=== PATIENT | male | born 1955 | race Caucasian/White ===

== ENCOUNTER 2022-02-05 09:40 | Outpatient (CLI) | payer MEDICARE, OTHER, SELFPAY ==
--- OUTSIDE RECORDS SUMMARY | 2022-02-05 08:58 | XMS_ITS | Clinical Summary ---
:1955 Author Organization [employer] [facility] [place] [address] Care Team Providers Name Role Phone Dedra Brennan MD Primary Care Provider [phone] Allergies No known active allergies Medications No known medications Active Problems No known active problems Social History Tobacco Use Types Packs/Day Years Used Date Never Assessed Sex Assigned at Date Recorded Not on file Obstetrics History Plan of Treatment Health Maintenance Due Date Last Done Comments COVID-19 vaccine series (#1) 1955 Tdap 02/17/1968 Depression screening for age 12+ 1969 BMI (ht and wt on same day) for age 18+ 1975 Hepatitis C screening for age 18-79 1975 Tetanus booster 1977 Colonoscopy through age 75 2002 Lipids for age 45-75 2002 Zoster (shingles) series for age 50+ (1 of 2) 2007 Influenza for age 50-64 12/26/2021 Results Not on filefrom Last 3 Months Insurance Payer Benefit Plan / Subscriber ID Effective Dates Phone Addre ss Type Group WEST [id number] 2006-Present [employer]/ [address] [place] [id number] Care Teams [employer] Relationship Specialty Start Date End Date Dedra Brennan MD PCP - General 10/26/07
== END 2022-02-05 09:41 | disposition home or self-care (01) ==
PROVIDERS: PCP Family Medicine; Visit Provider Family Medicine
DX: E03.9 Hypothyroidism, unspecified (principal)
CPT/HCPCS: 84443

== ENCOUNTER 2022-07-10 07:47 | Outpatient (CLI) | payer MEDICARE, OTHER, SELFPAY | END 2022-07-10 07:48 | disposition home or self-care (01) | LOC: OP CLINIC 07:48 | PROVIDERS: PCP Family Medicine; Visit Provider Surgery | DX: Z12.11 Encounter for screening for malignant neoplasm of colon (principal); K63.5 Polyp of colon; K62.1 Rectal polyp; K64.8 Other hemorrhoids; K57.30 Diverticulosis of large intestine without perforation or abscess without bleeding; Z80.0 Family history of malignant neoplasm of digestive organs; Z86.010 Personal history of colon polyps | CPT/HCPCS: 45385; 88305; 99153; J1200; J2250; J3010 ==

== ENCOUNTER 2022-11-19 09:10 | Outpatient (CLI) | payer MEDICARE, OTHER, SELFPAY | END 2022-11-19 09:11 | disposition home or self-care (01) | LOC: NFLDREF 11-20 10:34 | PROVIDERS: PCP Family Medicine; Referring Provider Family Medicine; Visit Provider Family Medicine | DX: E03.9 Hypothyroidism, unspecified (principal) | CPT/HCPCS: 84443 ==

== ENCOUNTER 2023-02-02 15:38 | Outpatient (CLI) | payer MEDICARE, OTHER, SELFPAY ==
--- NOTE | 2023-02-02 16:00 | CRLHL7_ITS ---
For Patients: As a result of the Century Cures Act, medical imaging exams and procedure reports are released immediately into your electronic medical record. You may view this report before your referring provider. If you have questions, please contact your health care provider. Indication: LEFT NECK PALPABLE AREA Technique: Grayscale and color Doppler ultrasound of the left side of the neck performed. Comparison: None Findings: There is an enlarged lymph node within the left side of the neck measuring 3.0 x 1.5 x 1.7 cm. The echotexture is primarily hypoechoic. No abnormal vascularity. Impression: Enlarged left cervical lymph node measuring 3.[address] soft tissue neck and ENT referral recommended. Dictated by Bradley Fatima MD @ 02/04/2023 6:57:31 AM (Electronically Signed)
== END 2023-02-02 15:39 | disposition home or self-care (01) ==
LOC: US 15:39
PROVIDERS: PCP Family Medicine; Visit Provider Nurse Practitioner Family
DX: R59.0 Localized enlarged lymph nodes (principal)
CPT/HCPCS: 76536

== ENCOUNTER 2023-02-12 07:37 | Outpatient (CLI) | payer MEDICARE, OTHER, SELFPAY ==
--- NOTE | 2023-02-12 08:00 | CRLHL7_ITS ---
For Patients: As a result of the Century Cures Act, medical imaging exams and procedure reports are released immediately into your electronic medical record. You may view this report before your referring provider. If you have questions, please contact your health care provider. INDICATION: Localized enlarged to lymph nodes. TECHNIQUE: CT of the neck from the skull base to the thoracic inlet following administration of 132 cc iodinated intravenous contrast. COMPARISON: Correlated with ultrasound dated 02/02/2023. FINDINGS: An enhancing soft tissue mass involving the left palatine tonsil and glossal tonsillar sulcus measures up to 2.9 cm in greatest dimension and abuts the left hyoglossus. No evidence of pterygoid musculature, skullbase, or laryngeal involvement. Multiple prominent left cervical lymph nodes with foci of internal hypoattenuation suggestive of necrosis as follows: -left level IIa nodes measuring 1.2 cm (series 3, image 43), 1.8 cm (series 3 image 41), and 1.9 cm (series 3, image 53) -left level IIb nodes measuring 1.3 cm (series 3, image 41), 1.6 cm (series 3, image 45), and 1.4 cm (series 3, image 50). Mildly prominent left anterior parotid lymph node with normal central fatty hilum. Unremarkable submandibular and thyroid glands. The lung apices are clear. The major vascular structures are normal in appearance. No suspicious osseous lesion is identified. IMPRESSION: 1. 2.9 cm enhancing mass at the left glossal tonsillar sulcus abutting and questionably involving the left hyoglossus musculature. 2. Multiple prominent and necrotic left upper cervical lymph nodes as detailed above highly suspicious for [place] metastases. Please note that all CT scans at this facility use dose modulation, iterative reconstruction, and/or weight-based dosing when appropriate to reduce radiation dose to as low as reasonably achievable. Dictated by Gabe Vivas MD @ 02/13/2023 2:49:25 PM (Electronically Signed)
[2023-02-12 08:24] LABS: Creatinine* 1.3 mg/dL (0.5-1.5); Estimated Glomerular Filt Rate 61 ml/min
== END 2023-02-12 07:38 | disposition home or self-care (01) ==
LOC: CT 07:38
PROVIDERS: PCP Family Medicine; Visit Provider Nurse Practitioner Family
DX: R59.0 Localized enlarged lymph nodes (principal); R22.1 Localized swelling, mass and lump, neck
CPT/HCPCS: 36415; 70491; 82565; Q9967

== ENCOUNTER 2023-03-31 10:04 | Emergency (ER) | payer MEDICARE, OTHER, SELFPAY ==
[2023-03-31 10:16] VITALS: BP 129/91; PULSE 61; RESP 18; TEMP 36.3; O2SAT 94; BMI 41.7
--- NOTE | 2023-03-31 10:32 | CRLHL7_ITS ---
For Patients: As a result of the Century Cures Act, medical imaging exams and procedure reports are released immediately into your electronic medical record. You may view this report before your referring provider. If you have questions, please contact your health care provider. INDICATION: Chest pressure and shortness of breath, recent diagnosis with throat cancer. TECHNIQUE: CT chest PE was acquired with 131 cc Isovue 370 IV contrast. COMPARISON: None. FINDINGS: Heart and vasculature: Contrast opacification of the pulmonary arterial tree is adequate. No sign of pulmonary embolism. Heart size is normal. Thoracic aorta and pulmonary artery are normal in caliber. Lungs and pleura: Scattered peribronchial thickening and mosaic attenuation. No suspicious nodules or infiltrates. No pleural effusions, pleural thickening, or pneumothorax. Lymph nodes/mediastinum: No mediastinal, hilar, or axillary adenopathy. Chest wall: No masses. Upper abdomen: No acute or significant findings. Bones: Unremarkable for age. IMPRESSION: No pulmonary embolism. Scattered peribronchial thickening and mosaic attenuation throughout the lungs, possibly related to small vessel/airway disease, including bronchitis. No focal consolidations. Please note that all CT scans at this facility use dose modulation, iterative reconstruction, and/or weight-based dosing when appropriate to reduce radiation dose to as low as reasonably achievable. Dictated by Varun Hernadez MD @ 03/31/2023 1:27:21 PM (Electronically Signed)
--- NOTE | 2023-03-31 10:34 | ED.CHESTPAIN ---
HPI - Chest Pain General Chief Complaint: Chest Pain Stated Complaint: chest pain,shortness of breath Time Seen by Provider: 03/31/23 10:24 History of Present Illness HPI narrative: This 68-year-old male is sent here from the infusion clinic because of report of some chest pain recently. 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 He came into infusion center today to get routine IV fluids. He is reporting an episode of chest pain radiating up into his jaw that occurred when he was walking. He rested and the symptoms went away. This occurred a couple days ago. Then he had some chest discomfort when laying flat on his back and this was relieved with staying in a is sitting position. Currently he does not have any chest pain. He does not report any nausea, vomiting, lightheaded, shortness of breath, or diaphoresis. He does have a history of DVT x2 and he is currently on Xarelto. He comes here to check his heart and to rule out a pulmonary embolism. Related Data Home Medications Medication Instructions Recorded Confirmed cetirizine 10 mg tablet (Zyrtec) 10 mg PO QDAY 02/02/23 03/24/23 vhcmxdm-[id number]-ouopjtpc 250 2 tab PO Q6H PRN 03/17/23 03/24/23 mg-250 mg-65 mg tablet (Excedrin Extra Strength) glucosamine 750 st-uftjuzcszwh-bag 2 tab PO QDAY 03/17/23 03/24/23 no1 644 mg-C 30 mg-ruth 1 mg tablet (Osteo Bi-Flex Triple Strength) ibuprofen 400 mg tablet 400 mg PO Q8H 03/17/23 03/24/23 Previous Rx's Medication Instructions Recorded azelaic acid 15 % topical gel 1 applic topical BID #50 grams 04/15/22 (Finacea) atorvastatin 10 mg tablet 10 mg PO QPM #90 tabs 09/12/22 rivaroxaban 20 mg tablet (Xarelto) 20 mg PO QDAY #90 tabs 09/12/22 levothyroxine 125 mcg tablet 125 mcg PO QDAY #90 tabs 11/27/22 (Synthroid) ondansetron HCl 4 mg tablet 4 mg PO Q8H PRN nausea and 03/17/23 vomiting #60 tabs prochlorperazine maleate 5 mg 5 mg PO TID PRN nausea and 03/17/23 tablet (Compazine) vomiting #60 tabs Allergies Allergy/AdvReac Type Severity Reaction Status Date / Time No Known Allergies Allergy Verified 03/31/23 09:09 Review of Systems Status of ROS Reports: 10 or more systems reviewed and unremarkable except as noted in History and below Narrative Constitutional: No fevers, no weight gain or loss. Eyes: No discharge. No vision changes. HENT: No congestion, no sore throat, no ear pain. Cardiovascular: No palpitations. Chest discomfort as described above. Respiratory: No shortness of breath, no wheezes, no cough. Gastrointestinal: No abdominal pain, no vomiting, no diarrhea. Genitourinary: No dysuria, no hematuria. Musculoskeletal: Normal range of motion. Skin: No rashes, no pruritis. Neurological: No dizziness, weakness, sensory change, speech change. Endo/Heme/Allergies: No bruising or bleeding. No polydipsia. Pysch: no suicidality, no anxiety, no insomnia. All other systems reviewed and are negative. 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 - Other diseases of pharynx (ICD-10) Enlarged lymph node in neck ?R59.0 - Localized enlarged lymph nodes (ICD-10) Insomnia ?G47.00 - Insomnia, unspecified (ICD-10) Rosacea ?L71.9 - Rosacea, unspecified (ICD-10) Tobacco use (03/25/10) ?Z72.0 - Tobacco use (ICD-10) Strain of lumbar paraspinous muscle ?S39.012A - Strain of muscle, fascia and tendon of lower back, initial encounter (ICD-10) Surgical History (Updated 11/06/21 @ 15:12 by Pillo Turner) History of hemorrhoidectomy (03/25/10) ?Z98.890 - Other specified postprocedural states (ICD-10) History of colonoscopy ?Z98.890 - Other specified postprocedural states (ICD-10) History of cholecystectomy (03/25/10) ?Z90.49 - Acquired absence of other specified parts of digestive tract (ICD-10) History of appendectomy (03/25/10) ?Z90.49 - Acquired absence of other specified parts of digestive tract (ICD-10) Family History (Updated 11/06/21 @ 15:14 by Pillo Turner) Mother Breast cancer Diabetes Family/Other Diabetes Father Prostate cancer Other Colonic polyp Social History (Updated 11/06/21 @ 15:14 by Pillo Turner) Narrative: Former smoker Smoking Status: Former smoker Do you use any of these nicotine containing products: None Second hand tobacco smoke exposure: No How often do you have a drink containing alcohol: never AUDIT-C Alcohol total score: 0 Non-prescribed substance use: denies use Little interest or pleasure in doing things: several days Feeling down, depressed, or hopeless: several days Exam Narrative Exam Narrative: Constitutional: Well-developed, well-nourished, no acute distress. HEENT: Normocephalic, atraumatic. Neck: Normal range of motion. Nontender. Supple. Heart: Regular. No murmurs. Normal rate. Intact distal pulses. Lungs: Clear to auscultation. No chest discomfort. No wheezes, rhonchi, or rales. Abdomen: Normal bowel sounds. Nontender. No rebound tenderness. Genitalia: Deferred. Back: No midline tenderness. Normal range of motion. Extremities: Normal range of motion. No injury. Skin: Intact. No rash. Warm. No erythema or pallor. Neurologic: No altered sensation. No weakness. Alert and oriented. Psychiatric: No suicidality. No anxiety or depression. No insomnia. Nursing notes and vitals signs are reviewed. Const Vital Signs, click to edit/add: Vital Signs - 24 hr 03/31/23 10:16 03/31/23 13:00 03/31/23 13:01 Temperature 97.3 F L Pulse Rate 64 65 Pulse Rate [Pulse Oximeter] 61 Respiratory Rate 18 Blood Pressure 129/86 Blood Pressure [Right Upper Arm] 129/91 H Pulse Oximetry 94 93 93 Oxygen Delivery Method Room Air Course Vital Signs Vital signs: Initial Vital Signs Temperature 97.3 F L 03/31/23 10:16 Temperature Source Temporal Artery Scan 03/31/23 10:16 Pulse Rate 61 03/31/23 10:16 Respiratory Rate 18 03/31/23 10:16 Blood Pressure 129/91 H 03/31/23 10:16 Blood Pressure Mean 103 03/31/23 10:16 Blood Pressure Position Supine 03/31/23 10:16 Pulse Oximetry 94 03/31/23 10:16 Oxygen Delivery Method Room Air 03/31/23 10:16 Vital Signs Temperature 97.3 F L 03/31/23 10:16 Pulse Rate 61 03/31/23 10:16 Respiratory Rate 18 03/31/23 10:16 Blood Pressure 129/91 H 03/31/23 10:16 Pulse Oximetry 94 03/31/23 10:16 Oxygen Delivery Method Room Air 03/31/23 10:16 Temperature 97.3 F L 03/31/23 10:16 Pulse Rate 65 03/31/23 13:01 Respiratory Rate 18 03/31/23 10:16 Blood Pressure 129/86 03/31/23 13:01 Pulse Oximetry 93 03/31/23 13:01 Oxygen Delivery Method Room Air 03/31/23 10:16 Medications Administered Medications: Discontinued Medications Generic Name Dose Route Start Last Admin Trade Name Freq PRN Reason Stop Dose Admin Sodium Chloride 1,000 mls @ 1,000 mls/hr 03/31/23 10:45 03/31/23 12:55 0.9 % Sodium Chloride 1000 Ml IV 03/31/23 11:44 Infused .Q1H SHEIL[facility] Infusion MDM - Chest Pain MDM Narrative Medical decision making narrative: This patient was sent here from a visit to the infusion clinic because he reported chest pain as described above. He does have a history of deep venous thrombosis. Today an IV was established where he did received 2 L of normal saline. Chest CT with contrast shows no evidence of pulmonary embolism. Additionally his EKG and troponin returned with normal results. Patient states that he was out shoveling this morning and did not have any symptoms. This strenuous activity was well tolerated which is some further reassurance by way of his report of symptoms. He is okay to be discharged home and will resume current plans for treating his palatine tonsil cancer. Lab Data Labs: Lab Results 03/31/23 03/31/23 Range/Units 10:32 11:06 WBC 6.33 (4.50-11.00) K/uL RBC 4.61 (4.30-5.90) m/uL Hgb 14.2 (13.5-17.5) gm/dL Hct 42.7 (37.0-53.0) % MCV 93 (80-100) fL MCH 31 (26-34) pg MCHC 33 (32-36) gm/dL RDW Coeff of Jatin 12.6 (11.5-15.5) % Plt Count 176 (140-440) K/uL Neut % (Auto) 63.6 (42.0-72.0) % Lymph % (Auto) 24.0 (20-44) % [place] % (Auto) 10.6 (0.0-11.0) % Eos % (Auto) 1.3 (0.0-7.0) % Baso % (Auto) 0.2 (0.0-3.0) % Neut # (Auto) 4.03 (1.7-7.0) K/uL Lymph # (Auto) 1.52 (0.90-2.90) K/uL [place] # (Auto) 0.70 (0.00-0.90) K/UL Eos # (Auto) 0.08 (0.00-0.50) K/uL Baso # (Auto) 0.01 (0.00-0.30) K/uL Abs Immat Gran (auto) 0.02 (0.00-0.30) K/uL Imm/Tot Granulo (auto) 0.3 % Sodium 138 (135-149) mmol/L Potassium 4.3 (3.6-5.1) mmol/L Chloride 106 (96-114) mmol/L Carbon Dioxide 25 (20-32) mmol/L Anion Gap 7 (7-15) mEq/L BUN 19 (7-30) mg/dL Creatinine 1.1 (0.5-1.5) mg/dL Estimated Creat Clear 61.76 Estimated GFR 74 ml/min Glucose 129 H (60-115) mg/dL Calcium 9.3 (8.4-10.6) mg/dL POC Troponin I 0.00 L (0.01-0.04) ng/ml Imaging Data CT scan - chest: Radiologist's impression: No pulmonary embolism. ECG Data Attestation: I personally reviewed and interpreted this ECG as follows: Interpretation: Normal sinus rhythm. Rate is 63 beats per minute. There are no ST or T-wave abnormalities. Discharge Plan Discharge Clinical Impression: Atypical chest pain Patient Disposition: Home, Self-Care Additional Instructions: Continue current plans. Follow up with MD and infusion clinic as scheduled. Return if worsening. Prescriptions: No Action azelaic acid [Finacea] 15 % gel 1 applic topical BID Qty: 50 1RF cetirizine [Zyrtec] 10 mg tablet 10 mg PO QDAY Osteo Bi-Flex Triple Strength 750 mg-644 mg- 30 mg-1 mg tablet 2 tab PO QDAY ibuprofen 400 mg tablet 400 mg PO Q8H Excedrin Extra Strength 250-250-65 mg tablet 2 tab PO Q6H PRN prochlorperazine maleate [Compazine] 5 mg tablet 5 mg PO TID PRN (Reason: nausea and vomiting) Qty: 60 0RF ondansetron HCl 4 mg tablet 4 mg PO Q8H PRN (Reason: nausea and vomiting) Qty: 60 0RF atorvastatin 10 mg tablet 10 mg PO QPM Qty: 90 3RF Xarelto 20 mg tablet 20 mg PO QDAY Qty: 90 3RF Rx Instructions: must administer with evening meal levothyroxine [Synthroid] 125 mcg tablet 125 mcg PO QDAY Qty: 90 3RF Follow Up/Referrals: Toi Yap MD [Primary Care Provider] - Stand Alone Forms: [facility] Info Instructions
[2023-03-31] MEDS: 0.9 % SODIUM CHLORIDE 1000 ml 1,000 ML IV (11:06)
[2023-03-31 11:20] LABS: Basophils Absolute Auto 0.01 K/uL (0.00-0.30); Basophils Percent Auto 0.2 % (0.0-3.0); Eosinophils Absolute Auto 0.08 K/uL (0.00-0.50); Eosinophils Percent Auto 1.3 % (0.0-7.0); Hematocrit 42.7 % (37.0-53.0); Hemoglobin* 14.2 gm/dL (13.5-17.5); Immature Granulocytes Abs Auto 0.02 K/uL (0.00-0.30); Immature Granulocytes Pct Auto 0.3 %; Lymphocytes Absolute Auto 1.52 K/uL (0.90-2.90); Mean Corpuscular HGB Conc 33 gm/dL (32-36); Mean Corpuscular Hemoglobin 31 pg (26-34); Mean Corpuscular Volume 93 fL (80-100); Monocytes Percent Auto 10.6 % (0.0-11.0); Neutrophils Absolute Auto 4.03 K/uL (1.7-7.0); Neutrophils Percent Auto 63.6 % (42.0-72.0); Platelet Count* 176 K/uL (140-440); RDW Coefficient of Variation % 12.6 % (11.5-15.5); Red Blood Count 4.61 m/uL (4.30-5.90); White Blood Count* 6.33 K/uL (4.50-11.00)
[2023-03-31 11:27] LABS: Slide Review Reflex No
[2023-03-31 11:57] LABS: Anion Gap 7 mEq/L (7-15); Carbon Dioxide* 25 mmol/L (20-32); Chloride* 106 mmol/L (96-114); Potassium* 4.3 mmol/L (3.6-5.1); Sodium* 138 mmol/L (135-149)
[2023-03-31 11:58] LABS: Blood Urea Nitrogen* 19 mg/dL (7-30); Calcium* 9.3 mg/dL (8.4-10.6); Creatinine* 1.1 mg/dL (0.5-1.5); Est. Creatinine Clearance* 61.76; Estimated Glomerular Filt Rate 74 ml/min; Glucose* 129 mg/dL (60-115)
[2023-03-31 13:00] VITALS: PULSE 64; O2SAT 93
[2023-03-31 13:01] VITALS: BP 129/86; PULSE 65; O2SAT 93
== END 2023-03-31 13:49 | disposition home or self-care (01) ==
PROVIDERS: Emergency Provider Emergency Medicine Emergency Medical Services; PCP Family Medicine
DX: R07.9 Chest pain, unspecified (principal)
CPT/HCPCS: 36415; 71275; 80048; 84484; 85025; 93005; 99284; J7030; Q9967

== ENCOUNTER 2023-05-06 10:39 | Outpatient (CLI) | payer BC, OTHER, SELFPAY ==
--- OUTSIDE RECORDS SUMMARY | 2023-05-06 10:42 | XMS_ITS | Clinical Summary ---
Author Name Unknown Organization [facility] Address [address] [place] [address] Care Team Providers Care Base Draw Operator Name Role Phone Unavailable Primary Care Provider Unavailabl e Source Comments Patient records contain information from all sites at [facility]. For routine questions regarding patient records, call [phone] during business hours, M-F 8:00 AM - 5:00 PM Central Time. Record requests for emergency care only can be directed to [phone] at any time.[facility] Allergies No known active allergies Medications Medication Sig Dispensed Refills Start Date End Date Status glucosamine sulfate (GLUCOSAMINE ORAL) Take 2 capsules by mouth daily. 0 1 Active ibuprofen (ADVIL,MOTRIN) 200 mg tablet Take 3-4 tablets by mouth daily as needed. unknown 0 9 Active rivaroxaban (XARELTO) 20 mg tablet rivaroxaban 20 mg oral tablet Start Date: 02/14/21 Status: Ordered 0 7 Active levothyroxine (SYNTHROID, LEVOTHROID) 125 mcg tablet 0 3 Active glucosamine portillo 2KCl-chondroit (Glucosamine-Ch ondroitin 3X Str) 750-600 mg tablet 0 3 Active finasteride (PROSCAR) 5 mg tablet finasteride 5 mg oral tablet Start Date: 09/28/20 Status: Ordered 0 1 Active azelaic acid (FINACEA) 15 % gel 0 1 Active atorvastatin (LIPITOR) 10 mg tablet atorvastatin 10 mg oral tablet Start Date: 08/23/20 Status: Ordered 0 1 Active fluoride, sodium, (PREVIDENT) 1.1 % gel dental gel Apply 1 Application to the mouth or throat daily. Floss, brush, baking soda rinse. Apply thin gel ribbon to trays wear 5 minutes. Remove trays expectorate excess gel. No eating drinking or rinsing for 30 min. 100 mL 12 3 03/09/20 24 Active ondansetron (ZOFRAN) 4 mg tablet Take 4 mg by mouth. 0 3 Active prochlorperazin e (COMPAZINE) 5 mg tablet Take 5 mg by mouth every 8 (eight) hours as needed for nausea or vomiting. 0 3 Active diphenhydramine -lidocaine 2 %-antacid (mw)Indications :breakthrough cancer pain Take 5-10 mL by mouth 4 (four) times a day before meals and bedtime Indications: pain in a cancer patient when on pain medication. Swish in mouth for 1 minute and then spit out solution.Do not eat or drink for 15-30 minutes after use. 480 mL 2 3 Active naloxone (NARCAN) 4 mg/actuation nasal spray Administer 1 spray (4 mg total) into one nostril as needed for reversal. Use 1 spray in 1 nostril. Repeat with second device in other nostril after 2-3 minutes if no or minimal response. 4 each 0 4 Active fentaNYL (DURAGESIC) 12 mcg/hr patchIndication s:Prolonged Acute Pain/Traumatic Injury Place 1 patch on the skin every third day Indication: Prolonged Acute Pain/Traumatic Injury. 10 patch 0 4 06/04/19 24 Active HYDROcodone-liberty taminophen (NORCO) 5-325 mg per tabletIndicatio ns:Prolonged Acute Pain/Traumatic Injury Take 2 tablets by mouth every 4 (four) hours as needed for pain Indication: Prolonged Acute Pain/Traumatic Injury. 30 tablet 0 4 Active folic acid/multivit-m in/lutein (CENTRUM SILVER ORAL) Take 1 tablet by mouth daily. 0 1 04/22/20 23 Discontinued levothyroxine sodium (TIROSINT) 125 mcg capsule 0 3 04/22/20 23 Discontinued HYDROcodone-liberty taminophen (VICODIN) 5-300 mg per tabletIndicatio ns:Prolonged Acute Pain/Traumatic Injury Take 1 tablet by mouth every 4 (four) hours as needed for pain Indication: Prolonged Acute Pain/Traumatic Injury. 20 tablet 0 3 04/15/20 23 Discontinued HYDROcodone-liberty taminophen (NORCO) 5-325 mg per tabletIndicatio ns:Prolonged Acute Pain/Traumatic Injury Take 1 tablet by mouth every 4 (four) hours as needed for pain Indication: Prolonged Acute Pain/Traumatic Injury. 20 tablet 0 3 04/17/20 23 Discontinued(Reo rder) HYDROcodone-liberty taminophen (NORCO) 5-325 mg per tabletIndicatio ns:Prolonged Acute Pain/Traumatic Injury Take 2 tablets by mouth every 4 (four) hours as needed for pain Indication: Prolonged Acute Pain/Traumatic Injury. 30 tablet 0 3 05/05/19 24 Discontinued(Reo rder) fentaNYL (DURAGESIC) 12 mcg/hr patchIndication s:Acute Pain Exception Place 1 patch on the skin every third day for 3 doses Indication: Acute Pain Exception. 3 patch 0 4 05/05/19 24 Discontinued(Reo rder) naloxone (NARCAN) 4 mg/actuation nasal spray Administer 1 spray (4 mg total) into one nostril as needed for reversal. Use 1 spray in 1 nostril. Repeat with second device in other nostril after 2-3 minutes if no or minimal response. 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 05/05/2023 1:15 PM CYTOLOGY MANAGER Hospital Encounter Department of Radiation Oncology in [address] [address] Lauren Hernandez M.D. 05/05/2023 1:00 PM CYTOLOGY MANAGER - 05/05/2023 1:14 PM CYTOLOGY MANAGER Hospital Encounter Department of Radiation Oncology in [place], [place] [address] [place] [address] Lauren Hernandez M.D. Malignant Neoplasm Of Oropharynx (HCC) 05/05/2023 10:00 AM CYTOLOGY MANAGER Clinical Support Division of Endocrinology in [place], [place] [address] [place] [phone] Lauren Hernandez M.D. Giesen, Samantha M RJurgen Malignant Neoplasm Of Tonsil (HCC) 05/05/2023 9:20 AM CYTOLOGY MANAGER - 05/05/2023 10:57 AM CYTOLOGY MANAGER Hospital Encounter Department of Radiology in [address] [phone] Kelly Peter, PATRICE, C.N.P., D.N.P. Carlito Chaudhry M.D. Augustine, Matthew R, M.D. Gastrostomy Status (HCC) Discharge Disposition: Home or Self Care 05/05/2023 8:00 AM CYTOLOGY MANAGER Clinical Support Department of Nutrition and Diabetes Education in [place], [place] [address] [place] [phone] Lauren Hernandez M.D. Epp, Lisa M, RDN, LD Oly Mendez M.S., RDN, LD Gastrostomy Status (HCC) (Primary Dx); Malignant Neoplasm Of Tonsil (HCC) 05/05/2023 Documentation Division of General Internal Medicine in [place], [place] [address] [place] [phone] Kaylene Montoya, Pharm.D., R.Ph. 05/04/2023 12:38 PM CYTOLOGY MANAGER Anesthesia Event Department of Radiology in [address] [address] Jayy Dimas APRN, MANAGER ETHICS, DNAP Michelet Adhikari APRN, MANAGER ETHICS, DNAP 05/04/2023 10:57 AM CYTOLOGY MANAGER - 05/04/2023 3:48 PM CYTOLOGY MANAGER Hospital Encounter Department of Radiology in [place], [place] [address] [place] [address] Lauren Hernandez M.D. Jundt, Michael C, M.D. Huls, Sean J, M.D. Malignant Neoplasm Of Tonsil (HCC) Discharge Disposition: Home or Self Care 05/04/2023 7:50 AM CYTOLOGY MANAGER Hospital Encounter Department of Radiation Oncology in [address] [address] Lauren Hernandez M.D. 05/01/2023 2:00 PM CYTOLOGY MANAGER Comprehensive Visit Division of Endocrinology in [place], [place] [address] [place] [address] Lauren Hernandez M.D. Hagenbrock, Martha C, APRN, C.N.P. Dietary Counseling And Surveillance For Enteral Nutrition (Primary Dx); Malignant Neoplasm Of Tonsil (HCC) 05/01/2023 1:00 PM CYTOLOGY MANAGER Clinical Support Division of Endocrinology in [place], [place] [address] [place] [address] Lauren Hernandez M.D. Giesen, Samantha M, R.N. Malignant Neoplasm Of Tonsil (HCC) 05/01/2023 11:00 AM CYTOLOGY MANAGER Clinical Support Department of Nutrition and Diabetes Education in [place], [place] [address] [place] [address] Lauren Hernandez M.D. Olson, Danelle A, M.S., RDN, LD Malignant Neoplasm Of Oropharynx (HCC) (Primary Dx); Malignant Neoplasm Of Tonsil (HCC); Dysphagia Oropharyngeal Phase; Dietary Counseling And Surveillance For Enteral Nutrition; Gastrostomy Status (HCC) 05/01/2023 7:46 AM CYTOLOGY MANAGER Hospital Encounter Department of Radiation Oncology in [place], [place] [address] [place] [address] Lauren Hernandez M.D. 04/30/2023 7:50 AM CYTOLOGY MANAGER Hospital Encounter Department of Radiation Oncology in [place], [place] [address] [place] [phone] Lauren Hernandez M.D. 04/30/2023 Clinical Communication Division of General Internal Medicine in [place], [place] [address] [place] [address] Jihan Rivas R.N. 04/30/2023 Clinical Communication Department of Radiation Oncology in [address] [address] Ramandeep Sanz R.N. 04/29/2023 7:47 AM CYTOLOGY MANAGER - 04/29/2023 12:51 PM CYTOLOGY MANAGER Hospital Encounter Department of Radiation Oncology in [address] [address] Lauren Hernandez M.D. Malignant Neoplasm Of Tonsil (HCC) (Primary Dx); Malignant Neoplasm Of Oropharynx (HCC) 04/29/2023 7:47 AM CYTOLOGY MANAGER Hospital Encounter Department of Radiation Oncology in [address] [address] Lauren Hernandez M.D. 04/29/2023 Clinical Communication Department of Radiology in [place], [place] [address] [place] [address] Tony Lujan, RFcoN. Procedure (G tube placement) 04/29/2023 Documentation Division of General Internal Medicine in [place], [place] [address] [place] [address] Jihan Rivas, R.N. Scheduling 04/29/2023 Clinical Communication Division of Endocrinology in [place], [place] [address] [place] [address] Provider, Unknown 04/28/2023 7:53 AM CYTOLOGY MANAGER Hospital Encounter Department of Radiation Oncology in [address] [address] Lauren Hernandez M.D. 04/24/2023 7:54 AM CYTOLOGY MANAGER Hospital Encounter Department of Radiation Oncology in [address] [address] Lauren Hernandez M.D. 04/23/2023 2:48 PM CYTOLOGY MANAGER Hospital Encounter Department of Radiation Oncology in [address] [address] Lauren Hernandez M.D. 04/23/2023 8:09 AM CYTOLOGY MANAGER Hospital Encounter Department of Radiation Oncology in [address] [address] Ashlee Go APRN, C.N.P., D.N.PPoly Mcginnis LD Malignant Neoplasm Of Oropharynx (HCC) 04/23/2023 7:47 AM CYTOLOGY MANAGER Hospital Encounter Department of Radiation Oncology in [address] [address] Lauren Hernandez M.D. 04/22/2023 7:49 AM CYTOLOGY MANAGER - 04/22/2023 9:25 AM CYTOLOGY MANAGER Hospital Encounter Department of Radiation Oncology in [address] [address] Lauren Hernandez M.D. Leenstra, James L, M.D. Malignant Neoplasm Of Oropharynx (HCC) 04/22/2023 7:49 AM CYTOLOGY MANAGER Hospital Encounter Department of Radiation Oncology in [address] [address] Lauren Hernandez M.D. 04/21/2023 8:36 AM CYTOLOGY MANAGER Hospital Encounter Department of Radiation Oncology in [address] [address] Lauren Hernandez M.D. 04/17/2023 8:18 AM CYTOLOGY MANAGER Hospital Encounter Department of Radiation Oncology in [address] [address] Lauren Hernandez M.D. 04/17/2023 Orders Only Department of Radiation Oncology in [address] [address] Lauren Hernandez M.D. 04/16/2023 8:16 AM CYTOLOGY MANAGER Hospital Encounter Department of Radiation Oncology in [address] [address] Lauren Hernandez M.D. 04/15/2023 8:32 AM CYTOLOGY MANAGER Hospital Encounter Department of Radiation Oncology in [address] [address] Lauren Hernandez M.D. 04/15/2023 8:20 AM CYTOLOGY MANAGER - 04/15/2023 8:31 AM CYTOLOGY MANAGER Hospital Encounter Department of Radiation Oncology in [address] [address] Lauren Hernandez M.D. Malignant Neoplasm Of Oropharynx (HCC) 04/14/2023 8:26 AM CYTOLOGY MANAGER Hospital Encounter Department of Radiation Oncology in [address] [address] Lauren Hernandez M.D. 04/14/2023 Clinical Communication Department of Radiation Oncology in [address] [address] Lauren Hernandez M.D. 04/13/2023 9:12 AM CYTOLOGY MANAGER Hospital Encounter Department of Radiation Oncology in [address] [address] Lauren Hernandez M.D. 04/10/2023 8:45 AM CYTOLOGY MANAGER Hospital Encounter Department of Radiation Oncology in [address] [address] Lauren Hernandez M.D. 04/09/2023 8:03 AM CYTOLOGY MANAGER Hospital Encounter Department of Radiation Oncology in [address] [address] Ashlee Go APRN, C.N.P., D.N.P. Poly Gill LD Malignant Neoplasm Of Oropharynx (HCC) 04/09/2023 8:02 AM CYTOLOGY MANAGER Hospital Encounter Department of Radiation Oncology in [address] [address] Lauren Hernandez M.D. 04/08/2023 8:01 AM CYTOLOGY MANAGER Hospital Encounter Department of Radiation Oncology in [address] [address] Lauren Hernandez M.D. 04/07/2023 7:51 AM CYTOLOGY MANAGER - 04/07/2023 3:25 PM CYTOLOGY MANAGER Hospital Encounter Department of Radiation Oncology in [address] [address] Lauren Heranndez M.D. Malignant Neoplasm Of Oropharynx (HCC) 04/07/2023 7:50 AM CYTOLOGY MANAGER Hospital Encounter Department of Radiation Oncology in [address] [address] Lauren Hernandez M.D. 04/06/2023 11:37 AM CYTOLOGY MANAGER Hospital Encounter Department of Radiation Oncology in [address] [address] Lauren Hernandez M.D. 04/03/2023 9:53 AM CYTOLOGY MANAGER - 04/03/2023 11:57 AM CYTOLOGY MANAGER Hospital Encounter Department of Radiation Oncology in [address] [address] Lauren Hernandez M.D. Grieman, Kari A, R.N. Malignant Neoplasm Of Oropharynx (HCC) Discharge Disposition: Home or Self Care 04/03/2023 9:53 AM CYTOLOGY MANAGER - 04/03/2023 11:59 PM CYTOLOGY MANAGER Hospital Encounter Department of Radiation Oncology in [address] [address] Lauren Hernandez M.D. Discharge Disposition: Home or Self Care 04/02/2023 7:49 AM CYTOLOGY MANAGER - 04/02/2023 3:59 PM CYTOLOGY MANAGER Hospital Encounter Department of Radiation Oncology in [address] [address] Lauren Hernandez M.D. Malignant Neoplasm Of Oropharynx (HCC) 04/02/2023 7:49 AM CYTOLOGY MANAGER - 04/02/2023 11:59 PM CYTOLOGY MANAGER Hospital Encounter Department of Radiation Oncology in [address] [address] Lauren Hernandez M.D. Discharge Disposition: Home or Self Care 04/01/2023 7:47 AM CYTOLOGY MANAGER - 04/01/2023 11:59 PM CYTOLOGY MANAGER Hospital Encounter Department of Radiation Oncology in [address] [address] Lauren Hernandez M.D. Discharge Disposition: Home or Self Care 03/31/2023 7:50 AM CYTOLOGY MANAGER - 03/31/2023 11:59 PM CYTOLOGY MANAGER Hospital Encounter Department of Radiation Oncology in [address] [address] Lauren Hernandez M.D. Discharge Disposition: Home or Self Care 03/30/2023 7:46 AM CYTOLOGY MANAGER - 03/30/2023 11:59 PM CYTOLOGY MANAGER Hospital Encounter Department of Radiation Oncology in [address] [address] Lauren Hernandez M.D. Discharge Disposition: Home or Self Care 03/27/2023 8:04 AM CYTOLOGY MANAGER - 03/27/2023 11:59 PM CYTOLOGY MANAGER Hospital Encounter Department of Radiation Oncology in [address] [address] Lauren Hernandez M.D. Discharge Disposition: Home or Self Care 03/26/2023 8:26 AM CYTOLOGY MANAGER - 03/26/2023 11:59 PM CYTOLOGY MANAGER Hospital Encounter Department of Radiation Oncology in [address] [address] Ashlee Go, TRAIN OPERATIONS MANAGER, C.N.P., D.N.P. Yolis Eric, RDN Malignant Neoplasm Of Oropharynx (HCC) Discharge Disposition: Home or Self Care 03/26/2023 8:25 AM CYTOLOGY MANAGER Hospital Encounter Department of Radiation Oncology in [address] [address] Lauren Hernandez M.D. Malignant Neoplasm Of Tonsil (HCC) (Primary Dx); Malignant Neoplasm Of Oropharynx (HCC) 03/26/2023 8:24 AM CYTOLOGY MANAGER Hospital Encounter Department of Radiation Oncology in [address] [address] Lauren Hernandez M.D. Discharge Disposition: Home or Self Care 03/25/2023 9:26 AM CYTOLOGY MANAGER - 03/25/2023 11:59 PM CYTOLOGY MANAGER Hospital Encounter Department of Radiation Oncology in [address] [address] Lauren Hernandez M.D. Discharge Disposition: Home or Self Care 03/24/2023 8:12 AM CYTOLOGY MANAGER - 03/24/2023 11:59 PM CYTOLOGY MANAGER Hospital Encounter Department of Radiation Oncology in [address] [address] Lauren Hernandez M.D. Discharge Disposition: Home or Self Care 03/23/2023 3:05 PM CYTOLOGY MANAGER - 03/23/2023 11:59 PM CYTOLOGY MANAGER Hospital Encounter Department of Radiation Oncology in [address] [address] Lauren Hernandez M.D. Discharge Disposition: Home or Self Care 03/13/2023 2:07 PM CYTOLOGY MANAGER - 03/14/2023 6:30 AM CYTOLOGY MANAGER Hospital Encounter Department of Radiation Oncology in [address] [place] [address] Lauren Hernandez M.D. Malignant Neoplasm Of Oropharynx (HCC) 03/13/2023 2:00 PM CYTOLOGY MANAGER - 03/13/2023 2:06 PM CYTOLOGY MANAGER Hospital Encounter Department of Radiation Oncology in [address] [address] Lauren Hernandez M.D. Grieman, Kari A RFcoNFco Malignant Neoplasm Of Tonsil (HCC) (Primary Dx) 03/13/2023 12:20 PM CYTOLOGY MANAGER - 03/13/2023 1:59 PM CYTOLOGY MANAGER Hospital Encounter Department of Radiation Oncology in [address] [address] Lauren Hernandez M.D. Malignant Neoplasm Of Tonsil (HCC) (Primary Dx); Malignant Neoplasm Of Oropharynx (HCC); Secondary Malignant Neoplasm Lymph Node Neck (HCC) 03/13/2023 11:30 AM CYTOLOGY MANAGER Clinical Support Department of Dental Specialties in [place], [place] [address] [place] [address] Joe Moseley B.D.S. Malignant Neoplasm Of Oropharynx (HCC) (Primary Dx); Malignant Neoplasm Of Tonsil (HCC); Secondary Malignant Neoplasm Lymph Node (HCC) 03/13/2023 Clinical Communication Department of Dental Specialties in [place], [place] [address] [place] [address] Joe Moseley B.D.S. 03/12/2023 Orders Only Department of Radiation Oncology in [place], [place] [address] [place] [address] Leesa Zamora Malignant Neoplasm Of Oropharynx (HCC) (Primary Dx) 03/12/2023 Orders Only Department of Radiation Oncology in [address] [address] Terri Crowe P.A.-C., M.S. Malignant Neoplasm Of Oropharynx (HCC) (Primary Dx) 03/12/2023 Orders Only Department of Radiation Oncology in [place], [place] [address] [place] [phone] Ashlee Go APRN, C.NFcoP., Trista.N.P. Malignant Neoplasm Of Oropharynx (HCC) (Primary Dx) 03/12/2023 Orders Only Department of Oncology in [place], [place] [address] [place] [phone] Ana Quinonez R.N. Malignant Neoplasm Of Oropharynx (HCC) (Primary Dx) 03/10/2023 4:00 PM CYTOLOGY MANAGER Comprehensive Visit Department of Dental Specialties in [place], [place] [address] [place] [phone] Joe Moseley B.D.SFco Malignant Neoplasm Of Oropharynx (HCC); Secondary Malignant Neoplasm Lymph Node (HCC) 03/10/2023 Orders Only Department of Oncology in [place], [place] [address] [place] [phone] Ana Quinonez R.N. Malignant Neoplasm Of Oropharynx (HCC) (Primary Dx) 03/09/2023 1:30 PM CYTOLOGY MANAGER Office Visit Department of Otorhinolaryngology in [address] [address] David Soto M.D. Malignant Neoplasm Of Tonsil (HCC) (Primary Dx); Secondary Malignant Neoplasm Lymph Node (HCC) 03/09/2023 10:34 AM CYTOLOGY MANAGER - 03/09/2023 11:59 PM CYTOLOGY MANAGER Hospital Encounter Department of Radiology, [facility], in [place], [place] [address] [place] [phone] David Soto M.D. Riggs, Mallory L M.SFco, CCC-BODY FINISHER Malignant Neoplasm Of Oropharynx (HCC); Secondary Malignant Neoplasm Lymph Node (HCC) Discharge Disposition: Home or Self Care 03/09/2023 10:30 AM CYTOLOGY MANAGER Comprehensive Visit Department of Neurology in [address] [address] David Soto M.D. Riggs, Mallory LJames, CCC-BODY FINISHER Dysphagia Oropharyngeal Phase (Primary Dx); Malignant Neoplasm Of Oropharynx (HCC); Secondary Malignant Neoplasm Lymph Node (HCC) 03/09/2023 Orders Only Department of Radiation Oncology in [address] [address] Brandon Yeboah Mass Tonsil (Primary Dx) 03/05/2023 12:18 PM CYTOLOGY MANAGER - 03/05/2023 1:35 PM CYTOLOGY MANAGER Hospital Encounter Department of Radiation Oncology in [address] [address] Parvez Byrd M.D. Malignant Neoplasm Of Tonsil (HCC) (Primary Dx); Mass Tonsil; Mass Neck 03/05/2023 10:55 AM CYTOLOGY MANAGER Ancillary Procedure Department of Otorhinolaryngology 03/05/2023 9:45 AM CYTOLOGY MANAGER Comprehensive Visit Department of Otorhinolaryngology in [address] [address] David Soto M.D. Malignant Neoplasm Of Oropharynx (HCC); Secondary Malignant Neoplasm Lymph Node (HCC) 03/05/2023 8:10 AM CYTOLOGY MANAGER - 03/06/2023 11:34 AM CYTOLOGY MANAGER Hospital Encounter Department of Radiology, [address] [address] David Soto M.D. Mass Neck; Mass Tonsil Discharge Disposition: Home or Self Care 03/02/2023 5:54 AM CYTOLOGY MANAGER - 03/02/2023 11:59 PM CYTOLOGY MANAGER Hospital Encounter Department of Radiology, [facility] in [address] [address] David Soto M.D. Mass Neck; Mass Tonsil Discharge Disposition: Home or Self Care 02/27/2023 10:00 AM CDT Clinical Communication Virtual Review in [address] [address] Previsit Preparation 02/26/2023 10:06 AM CDT - 02/26/2023 11:59 PM CDT Hospital Encounter Department of Radiology, [facility] in [address] [address] David Soto M.D. Mass Neck; Mass Tonsil Discharge Disposition: Home or Self Care 02/25/2023 Clinical Communication Department of Otorhinolaryngology in [place], [place] [address] [place] [address] David Soto M.D. OSM Request 02/24/2023 Orders Only Department of Otorhinolaryngology in [place], [place] [address] [place] [address] Marlyn Santillan R.N. Mass Tonsil (Primary Dx); Mass Neck 02/23/2023 Clinical Communication Department of Otorhinolaryngology in [place], [place] [address] [place] [address] Prescheduling, Provider Appt Question 02/23/2023 Clinical Communication Department of Otorhinolaryngology in [place], [place] [address] [place] [address] Prescheduling, Provider Referral 02/20/2023 Clinical Communication Department of Otorhinolaryngology in [place], [place] [address] [place] [address] Prescheduling, Provider Referral 02/18/2023 Orders Only Department of Otorhinolaryngology in [place], [place] [address] [place] [address] Marlyn Santillan RFcoNFco Mass Neck (Primary Dx); Mass Tonsil 02/17/2023 [facility] [address] [place] [address] Toi Yap M.D. Other Diseases Of Pharynx (Primary Dx); Localized Enlarged Lymph Nodes from Last 3 Months Family History Medical History Relation Name Comments Prostate cancer Father Breast cancer Mother Relation Name Status Comments Father Mother Social History Tobacco Use Types Packs/Day Years Used Date Smoking Tobacco: Former Cigarettes 3 14 Q uit: 09/01/2010 Smokeless Tobacco: Never Tobacco Cessation:Counseling Given: Not Answered Alcohol Use Standard Drinks/Week Comments Yes 0 (1 standard drink = 0.6 oz pur e alcohol) Rare Overall Financial Resource Strain (CARDIA) Answe r Date Recorded How hard is it for you to pa y for the very basics like food, housing, medical care, and heating? Not hard at all 03/01/2023 Exercise Vital Sign Answer Date Recorde d On average, how many days pe r week do you engage in moderate to strenuous exercise (like a brisk walk)? 3 days 03/01/2023 On average, how many minutes do you engage in exercise at this level? 30 min 03/01/2023 Hunger Vital Sign Answer Date Recorded Within the past 12 months, y ou worried that your food would run out before you got the money to buy more. Never true 03/01/20 Within the past 12 months, t he food you bought just didn't last and you didn't have money to get more. Never true 03/01/2023 PRAPARE - Transportation Answer Date Re corded In the past 12 months, has l ack of transportation kept you from medical appointments or from getting medications? No 08/2022 In the past 12 months, has l ack of transportation kept you from meetings, work, or from getting things needed for daily living? No 03/01/2023 Nutrition Answer Date Recorded Nutrition: EVOO Fat Source Unknown 03/01 On average, how many serving s of fruits and vegetables do you eat per day (serving size is equal to 1 cup or approximately the size of a tennis ball)? 3-5 03/01/2023 Dental Answer Date Recorded Dental: Regular Dentist Yes 03/01/20 Employment Answer Date Recorded Employment status Retired 03/01/2023 Housing Stability Answer Date Recorded What is your living situation today? [facility] 03/01/2023 Sex and Gender Information Value Date Recorded Sex Assigned at Male 03/01/2023 1:25 PM CYTOLOGY MANAGER Gender Identity Male 03/01/2023 1:25 PM CYTOLOGY MANAGER Sexual Orientation Not on file Last Filed Vital Signs Vital Sign Reading Time Taken Comments Blood Pressure 130/74 05/05/2023 2:38 PM CYTOLOGY MANAGER Pulse 71 05/05/2023 2:38 PM CYTOLOGY MANAGER Temperature 36.5 ??C (97.7 ??F) 05/05/2023 2:38 PM CS T Respiratory Rate 18 05/05/2023 10:46 AM CYTOLOGY MANAGER Oxygen Saturation 96% 05/05/2023 10:46 AM CYTOLOGY MANAGER Inhaled Oxygen Concentration - - Weight 108 kg (237 lb 10.5 oz) 05/05/2023 2:38 P M CYTOLOGY MANAGER Height 170.4 cm (5' 7.09) 05/05/2023 7:52 AM CS T Body Mass Index 37.13 05/05/2023 7:52 AM CYTOLOGY MANAGER Plan of Treatment Upcoming Encounters Date Type Department Care Team (Late st Contact Info) Description 05/07/2023 8:00 AM CYTOLOGY MANAGER Appointment Department of Radiation Oncology in [address] [phone] Lauren Hernandez M.D. [address] [place] [phone] 05/07/2023 10:00 AM CYTOLOGY MANAGER Virtual Visit Division of Endocrinology in [place], [place] [address] [place] [phone] Kendra Tinsley APRN, C.N.P. [address] [place] [phone] 05/08/2023 8:00 AM CYTOLOGY MANAGER Appointment Department of Radiation Oncology in [address] [phone] Lauren Hernandez M.D. [address] [place] [phone] 05/11/2023 8:15 AM CYTOLOGY MANAGER Appointment Department of Radiation Oncology in [address] [phone] Lauren Hernandez M.D. [address] [place] [phone] Health Maintenance Due Date Last Done Comments Abdominal Aortic Aneurysm (AAA) Screen 1957 CT Colonography 1957 Cologuard 1957 Colonoscopy 1957 Colorectal Cancer Surveillance 1957 Generalized Anxiety (FATOUMATA-7) 1957 Hepatitis C Screening 1957 Lung Cancer Screening 1957 Thyroid Stimulating Hormone (TSH) test for thyroid function 1957 COVID-19 Vaccine (4 - 2022-24 season) 2022 05/16/2021, 09/11/2020, 08/21/2020 Influenza Vaccine (#1) 2023 7, 01/26/2016, 01/17/2012, Additional history exists Depression Screening (Annual PHQ-2) 04/27/2023 Controlled Substance Agreement 04/29/2023 Controlled Substance Monitoring (PHQ-9) 04/29/2023 Controlled Substance Monitoring 04/29/2023 Opioid Risk Tool (ORT) 04/29/2023 PEG assessment for Opioid therapy 04/29/2023 Opioid Use Disorder (OUD) Screening 04/30/2023 Pneumococcal vaccine (65+ years) (4 of 4 - PPSV23 or PCV20) 09/13/2023 09/12/2022, 10/03/2013, 03/25/2010 Fasting Glucose for Diabetes Screening 05/04/2026 05/04/2023, 03/02/2023 DTaP,Tdap,and Td Vaccines (4 - Td or Tdap) 11/05/2031 11/04/2021, 08/01/2021, 07/31/2012, Additional history exists Zoster Vaccines Completed 01/06/2022, 10/02/2021 Fall Risk Screen (Annual) Completed 05/05/2023 HPV Vaccines Aged Out No longer eligi ble based on patient's age to complete this topic Procedures Procedure Name Priority Date/Time Associated Diagnosis Comments ARIA DAILY TREATMENT INFORMATION Routine 05/06/2023 8:12 AM CYTOLOGY MANAGER ARIA DAILY TREATMENT INFORMATION Routine 05/05/2023 2:31 PM CYTOLOGY MANAGER IR GASTROSTOMY TUBE CHECK RAD - Routine (most inpatients and all outpatients) 05/05/2023 10:36 AM CYTOLOGY MANAGER Gastrostomy Status (HCC) IR GASTROSTOMY TUBE PLACEMENT RAD - Routine (most inpatients and all outpatients) 05/04/2023 1:35 PM CYTOLOGY MANAGER Malignant Neoplasm Of Tonsil (HCC) ECG STAT 05/04/2023 11:34 AM CYTOLOGY MANAGER PHOSPHORUS (INORGANIC), S Routine 05/04/2023 9:38 AM CYTOLOGY MANAGER Malignant Neoplasm Of Tonsil (HCC) Dietary Counseling And Surveillance For Enteral Nutrition MAGNESIUM, S Routine 05/04/2023 9:38 AM CYTOLOGY MANAGER Malignant Neoplasm Of Tonsil (HCC) Dietary Counseling And Surveillance For Enteral Nutrition BASIC METABOLIC PANEL, S/P Routine 05/04/2023 9:38 AM CYTOLOGY MANAGER Malignant Neoplasm Of Tonsil (HCC) Dietary Counseling And Surveillance For Enteral Nutrition ARIA DAILY TREATMENT INFORMATION Routine 05/04/2023 8:06 AM CYTOLOGY MANAGER ARIA DAILY TREATMENT INFORMATION Routine 05/01/2023 8:12 AM CYTOLOGY MANAGER ARIA DAILY TREATMENT INFORMATION Routine 04/30/2023 8:05 AM CYTOLOGY MANAGER ARIA DAILY TREATMENT INFORMATION Routine 04/29/2023 8:22 AM CYTOLOGY MANAGER ARIA DAILY TREATMENT INFORMATION Routine 04/28/2023 8:14 AM CYTOLOGY MANAGER ARIA DAILY TREATMENT INFORMATION Routine 04/24/2023 8:06 AM CYTOLOGY MANAGER ARIA DAILY TREATMENT INFORMATION Routine 04/23/2023 3:06 PM CYTOLOGY MANAGER ARIA DAILY TREATMENT INFORMATION Routine 04/23/2023 8:07 AM CYTOLOGY MANAGER ARIA DAILY TREATMENT INFORMATION Routine 04/22/2023 8:15 AM CYTOLOGY MANAGER ARIA DAILY TREATMENT INFORMATION Routine 04/21/2023 9:10 AM CYTOLOGY MANAGER ARIA DAILY TREATMENT INFORMATION Routine 04/17/2023 8:52 AM CYTOLOGY MANAGER ARIA DAILY TREATMENT INFORMATION Routine 04/16/2023 8:56 AM CYTOLOGY MANAGER ARIA DAILY TREATMENT INFORMATION Routine 04/15/2023 8:44 AM CYTOLOGY MANAGER ARIA DAILY TREATMENT INFORMATION Routine 04/14/2023 8:43 AM CYTOLOGY MANAGER ARIA DAILY TREATMENT INFORMATION Routine 04/13/2023 9:22 AM CYTOLOGY MANAGER ARIA DAILY TREATMENT INFORMATION Routine 04/10/2023 9:08 AM CYTOLOGY MANAGER ARIA DAILY TREATMENT INFORMATION Routine 04/09/2023 8:46 AM CYTOLOGY MANAGER ARIA DAILY TREATMENT INFORMATION Routine 04/08/2023 8:18 AM CYTOLOGY MANAGER ARIA DAILY TREATMENT INFORMATION Routine 04/07/2023 8:19 AM CYTOLOGY MANAGER ARIA DAILY TREATMENT INFORMATION Routine 04/06/2023 12:07 PM CYTOLOGY MANAGER ARIA DAILY TREATMENT INFORMATION Routine 04/03/2023 10:37 AM CYTOLOGY MANAGER ARIA DAILY TREATMENT INFORMATION Routine 04/02/2023 8:28 AM CYTOLOGY MANAGER ARIA DAILY TREATMENT INFORMATION Routine 04/01/2023 8:07 AM CYTOLOGY MANAGER ARIA DAILY TREATMENT INFORMATION Routine 03/31/2023 8:33 AM CYTOLOGY MANAGER ARIA DAILY TREATMENT INFORMATION Routine 03/30/2023 8:15 AM CYTOLOGY MANAGER ARIA DAILY TREATMENT INFORMATION Routine 03/27/2023 8:47 AM CYTOLOGY MANAGER ARIA DAILY TREATMENT INFORMATION Routine 03/26/2023 8:52 AM CYTOLOGY MANAGER ARIA DAILY TREATMENT INFORMATION Routine 03/25/2023 9:57 AM CYTOLOGY MANAGER ARIA DAILY TREATMENT INFORMATION Routine 03/24/2023 8:46 AM CYTOLOGY MANAGER ARIA DAILY TREATMENT INFORMATION Routine 03/23/2023 3:29 PM CYTOLOGY MANAGER INITIAL RAD ONC TREATMENT PLANNING CT SIMULATION Routine 03/13/2023 2:15 PM CYTOLOGY MANAGER Malignant Neoplasm Of Oropharynx (HCC) MD FLUORIDE APPL TRAYS UPPER & LOWER Routine 03/13/2023 11:30 AM CYTOLOGY MANAGER Malignant Neoplasm Of Oropharynx (HCC) 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) DENTAL LAB Routine 03/11/2023 MEDICAL PANOREX Routine 03/10/2023 5:56 PM CYTOLOGY MANAGER 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) FL SWALLOW FUNCTION WITH VIDEO AND SPEECH OR OT FOR RST RAD - Routine (most inpatients and all outpatients) 03/09/2023 10:50 AM CYTOLOGY MANAGER 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) OTORHINOLARYNGOLOGY IMAGE EXAM Routine 03/05/2023 10:11 AM CYTOLOGY MANAGER US LYMPH NODE BIOPSY RAD - Routine (most inpatients and all outpatients) 03/05/2023 8:46 AM CYTOLOGY MANAGER Mass Neck Mass Tonsil CYTOLOGY FINE NEEDLE ASPIRATION (INCLUDES CORE BIOPSIES Timed 03/05/2023 8:26 AM CYTOLOGY MANAGER MAGNESIUM, S Routine 03/02/2023 8:11 AM CYTOLOGY MANAGER Mass [place]onsil Mass Neck CBC WITH DIFFERENTIAL, B Routine 023 8:11 AM CYTOLOGY MANAGER [place] BILIRUBIN DIRECT, S/P Routine 03/02/2023 8:11 AM CYTOLOGY MANAGER [place] COMPREHENSIVE METABOLIC PANEL, S/P Routine 03/02/2023 8:11 AM CYTOLOGY MANAGER Mass [place]ck PET CT SKULL TO THIGH RAD - Routine (most inpatients and all outpatients) 03/02/2023 8:00 AM CYTOLOGY MANAGER [place] Mass [place]il US THYROID RAD - Routine (most inpatients and all outpatients) 02/26/2023 11:20 AM CDT [place]ck Mass Tonsil OUTSIDE CT NEURO Routine 02/12/2023 8:40 AM CDT from Last 3 Months Results * Aria Daily Treatment Information (05/06/2023 8:12 AM CYTOLOGY MANAGER) Only the most recent of32 resultswithin the time period is included. Course ID [id number] LÓPEZ ARIA Course Start Date 3 12:01 CYTOLOGY MANAGER LÓPEZ ARIA First Treatment Date 3 15:24 CYTOLOGY MANAGER LÓPEZ ARIA Last Treatment Date 4 08:12 CYTOLOGY MANAGER LÓPEZ ARIA Treatment Elapsed Days 44 LÓPEZ ARIA Reference Point [id number] LÓPEZ ARIA Dosage Given to Date cGy 6400 LÓPEZ ARIA Session Dosage Given 200 LÓPEZ ARIA Plan ID [id number] LÓPEZ ARIA Fractions Treated to Date 32 LÓPEZ ARIA Planned Total Fractions 35 LÓPEZ ARIA Prescribed Dose Per Fraction 200 LÓPEZ ARIA Prescription Dose in cGy 7000 LÓPEZ ARIA Plan Primary Reference Point [id number] LÓPEZ ARIA 05/06/2023 8:12 AM CYTOLOGY MANAGER Provider Not In System RADIATION ONCOLOG Y ORDERABLES RENE LUQUE na * IR Gastrostomy Tube Check (05/05/2023 10:36 AM CYTOLOGY MANAGER) Anatomical Region Laterality Modality Abdomen, Vascular Interventi onal RST LOS, Vascular Interventional FLA LOS N/A X-Ray Angiography Impressions 05/05/2023 11:03 AM CYTOLOGY MANAGER Appropriate position and function of the 16 Japanese gastrostomy tube placed yesterday. No leakage of contrast into the peritoneal cavity. No definitive fluoroscopic explanation for the patient's abdominal pain. EP Narrative 05/05/2023 11:03 AM CYTOLOGY MANAGER EXAM: IR GASTROSTOMY TUBE CHECK CLINICAL HISTORY: 68-year-old male with abdominal pain after G-tube placement yesterday. Presents for G-tube check. TECHNIQUE: The patient was positioned supine on the fluoroscopy table. Market B[employer] Maker image of the abdomen demonstrates contrast in the transverse colon. The gastrostomy tube placed yesterday is in unchanged position when compared to the completion images. Injection of contrast through the indwelling tube opacifies the stomach with rugal folds identified. Injected contrast transits through the pylorus into the proximal small bowel. There is no spillage of contrast into the peritoneal cavity. Multiple images were taken in multiple obliquities. Furthermore, air was also injected through the tube, which demonstrated that the anchoring balloon was within the gastric lumen. The tube was then flushed. No manipulation performed. PREPROCEDURE: Patient seen and evaluated. Allergies, pertinent medications, and history reviewed. Discussed risks, benefits, alternatives for procedure, and obtained informed consent. Patient understands information and questions answered. Immediately prior to starting the procedure, in the presence of the assisting personnel, procedural pause was conducted to verify correct patient identity and verification of procedure to be performed, and as applicable, correct side and site, correct patient position, availability of implants, special equipment, or special requirements, and all image and specimen identification data. The roles and responsibilities of care team members, residents, and fellows were discussed. Procedure Note Carlito Chaudhry M.D. - 05/05/2023 EXAM: IR GASTROSTOMY TUBE CHECK CLINICAL HISTORY: 68-year-old male with abdominal pain after G-tubeplacement yesterday. Presents for G-tube check. TECHNIQUE: The patient was positioned supine on the fluoroscopy table.Market Basket Maker image of the abdomen demonstrates contrast in the transverse colon.The gastrostomy tube placed yesterday is in unchanged position whencompared to the completion images. Injection of contrast through the indwelling tube opacifies the stomachwith rugal folds identified. Injected contrast transits through thepylorus into the proximal small bowel. There is no spillage of contrastinto the peritoneal cavity. Multiple images were taken in multiple obliquities. Furthermore, air was alsoinjected through the tube, which demonstrated that the anchoring balloonwas within the gastric lumen. The tube was then flushed. No manipulationperformed. PREPROCEDURE: Patient seen and evaluated. Allergies, pertinentmedications, and history reviewed. Discussed risks, benefits, alternativesfor procedure, and obtained informed consent. Patient understandsinformation and questions answered. Immediately prior to starting the procedure, in the presence of the assistingpersonnel, procedural pause was conducted to verify correct patientidentity and verification of procedure to be performed, and as applicable,correct side and site, correct patient position, availability of implants, special equipment, or specialrequirements, and all image and specimen identification data. The rolesand responsibilities of care team members, residents, and fellows werediscussed. IMPRESSION: Appropriate position and function of the 16 Japanese gastrostomy tube placedyesterday. No leakage of contrast into the peritoneal cavity. Nodefinitive fluoroscopic explanation for the patient's abdominal pain. EP Kelly Peter APRN, C.N.P., D.N.P. IMG I R PROCEDURES * IR Gastrostomy Tube Placement (05/04/2023 1:35 PM CYTOLOGY MANAGER) Anatomical Region Laterality Modality Abdomen, Vascular Interventi onal RST LOS, Vascular Interventional ARZ LOS, Vascular Interventional FLA LOS N/A X-Ray Angiography Impressions 05/04/2023 2:06 PM CYTOLOGY MANAGER Placement of a 16 Japanese percutaneous gastrostomy tube. Nothing by mouth or tube for 2 hours (strict). Then use of mouth or tube for water, medications, and/or tube feeds per Nutrition note/order. Exchange tube in 3-5 months. Contact the [facility] clinic at [phone] to schedule the tube exchange. 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 Pre-Procedure Diagnosis: Cancer. Indication: Feeding. TECHNIQUE: The patient was placed supine on the fluoroscopy table. Under fluoroscopic guidance, a 4 Japanese catheter was placed as a nasogastric tube. The left abdomen was prepared and draped in sterile fashion. Sonographic evaluation was used to demarcate the margin of the left hepatic lobe. 0.5 mg of glucagon was administered. The stomach was inflated through the nasogastric tube. Under fluoroscopic guidance, a 22-gauge Chiba needle was advanced into the gastric body. A 0.018 wire was coiled in the stomach and the tract converted with an AccuStick set. Satisfactory position confirmed with a small contrast injection. 4 Japanese catheter and Glidewire were advanced into the duodenum and positioned near the ligament of Treitz, as confirmed with a contrast injection. Next, a 0.035 wire was positioned in the small bowel. Using coaxial technique a gastrostomy tube (specifications below) was backloaded onto an 8 mm balloon. The balloon was used to dilate the anterior gastric and abdominal cavanaugh. Upon balloon deflation, the gastrostomy tube was advanced into the stomach. The balloon was filled with dilute contrast and the external retention disc was adjusted to the height noted below. Injection through the gastrostomy tube confirmed satisfactory position and function. Each lumen was flushed with saline. A sterile dressing was applied. No immediate complication. Tube Type: Gastrostomy, grand traverse. Tube Connection: ENFit. Tube Size: 16 Japanese. Low Profile: No. Disc Height: 5 cm. Balloon Volume: 5 mL. PREPROCEDURE: Patient seen and evaluated. Allergies, pertinent medications, and history reviewed. Discussed risks, benefits, alternatives for procedure, and obtained informed consent. Patient understands information and questions answered. Immediately prior to starting the procedure, in the presence of the assisting personnel, procedural pause was conducted to verify correct patient identity and verification of procedure to be performed, and as applicable, correct side and site, correct patient position, availability of implants, special equipment, or special requirements, and all image and specimen identification data. The roles and responsibilities of care team members, residents, and fellows were discussed. Sedation provided by Anesthesiology. Procedure Note Carlito Chaudhry M.D. - 05/04/2023 EXAM: IR GASTROSTOMY TUBE PLACEMENT CLINICAL HISTORY: 68-year-old male male with history of tonsillar squamouscell carcinoma with moderate malnutrition requiring gastrostomy tubeplacement. Pre-Procedure Diagnosis: Cancer. Indication: Feeding. TECHNIQUE: The patient was placed supine on the fluoroscopy table. Underfluoroscopic guidance, a 4 Japanese catheter was placed as a nasogastrictube. The left abdomen was prepared and draped in sterile fashion.Sonographic evaluation was used to demarcate the margin of the left hepatic lobe. 0.5 mg of glucagon wasadministered. The stomach was inflated through the nasogastric tube. Underfluoroscopic guidance, a 22-gauge Chiba needle was advanced into thegastric body. A 0.018 wire was coiled in the stomach and the tract converted with an AccuStick set. Satisfactoryposition confirmed with a small contrast injection. 4 Japanese catheter andGlidewire were advanced into the duodenum and positioned near the ligamentof Treitz, as confirmed with a contrast injection. Next, a 0.035 wire was positioned in the smallbowel. Using coaxial technique a gastrostomy tube (specifications below)was backloaded onto an 8 mm balloon. The balloon was used to dilate theanterior gastric and abdominal cavanaugh. Upon balloon deflation, the gastrostomy tube was advanced into thestomach. The balloon was filled with dilute contrast and the externalretention disc was adjusted to the height noted below. Injection throughthe gastrostomy tube confirmed satisfactory position and function. Each lumen was flushed with saline. A steriledressing was applied. No immediate complication. Tube Type: Gastrostomy, grand traverse. Tube Connection: ENFit. Tube Size: 16 Japanese. Low Profile: No. Disc Height: 5 cm. Balloon Volume: 5 mL. PREPROCEDURE: Patient seen and evaluated. Allergies, pertinentmedications, and history reviewed. Discussed risks, benefits, alternativesfor procedure, and obtained informed consent. Patient understandsinformation and questions answered. Immediately prior to starting the procedure, in the presence of the assistingpersonnel, procedural pause was conducted to verify correct patientidentity and verification of procedure to be performed, and as applicable,correct side and site, correct patient position, availability of implants, special equipment, or specialrequirements, and all image and specimen identification data. The rolesand responsibilities of care team members, residents, and fellows werediscussed. Sedation provided by Anesthesiology. IMPRESSION: Placement of a 16 Japanese percutaneous gastrostomy tube. Nothing by mouthor tube for 2 hours (strict). Then use of mouth or tube for water,medications, and/or tube feeds per Nutrition note/order. Exchange tube in3-5 months. Contact the [facility] at [phone] to schedule the tube exchange. EP Lauren I. Mary M.D. IMG IR PROCEDURES * ECG 12 Lead (05/04/2023 11:34 AM CYTOLOGY MANAGER) Ventricular Rate ECG/Min 62 BPM MUSE MD Interval 174 ms MUSE QRSD Interval 100 ms MUSE QT Interval 420 ms MUSE QTC Interval 426 ms MUSE P [place] 10 degrees MUSE R [place] -9 degrees MUSE T Wave [place] -14 degrees MUSE 05/04/2023 11:3 4 AM CYTOLOGY MANAGER 05/04/2023 11:53 AM CYTOLOGY MANAGER Impressions MUSE - 05/04/2023 11:53 AM CYTOLOGY MANAGER Normal sinus rhythm Normal ECG No previous ECGs available Reviewed by BHAVESH Medina Narrative Procedure Note Edward Mccurdy Jr., M.D. - 05/04/2023 IMPRESSION: Normal sinus rhythm Normal ECG No previous ECGs available Reviewed by BHAVESH Medina Carlito Chaudhry M.D. ECG ORDERABLES Performing Organization Address City/[facility]/ZIP Co de Phone Number MUSE NA * Phosphorus Inorganic (05/04/2023 9:38 AM CYTOLOGY MANAGER) Phosphorus (Inorganic), S 3.1 2.5 - 4.5 mg/dL 05/04/2023 11:19 AM CYTOLOGY MANAGER DTL Blood (Blood, Venous) 05/04/2023 9:38 AM CYTOLOGY MANAGER 05/04/2023 10:04 AM CYTOLOGY MANAGER Kendra Tinsley APRN, C.N.P. LAB BLO OD ADD-ON [facility] [address] [place] [address], [facility] [address] [place] [address] * Magnesium (05/04/2023 9:38 AM CYTOLOGY MANAGER) Only the most recent of2 resultswithin the time period is included. Magnesium, S 2.1 1.7 - 2.3 mg/dL 05/04/2023 11:19 AM CYTOLOGY MANAGER DTL Blood (Blood, Venous) 05/04/2023 9:38 AM CYTOLOGY MANAGER 05/04/2023 10:04 AM CYTOLOGY MANAGER Leighann Martinez APRNNDonell LAB BLO OD ADD-ON Performing Organization Address [facility]/ZIP Co de Phone Number [facility] [address] [place] [address], [facility] DTL [facility] [address] [place] [address] * Basic Metabolic Panel (05/04/2023 9:38 AM CYTOLOGY MANAGER) Potassium, S 4.8 3.6 - 5.2 mmol/L 05/04/2023 11:19 AM CYTOLOGY MANAGER DTL Sodium, S 140 135 - 145 mmol/L 05/04/2023 11:19 AM CYTOLOGY MANAGER DTL Chloride, S 102 98 - 107 mmol/L 05/04/2023 11:19 AM CYTOLOGY MANAGER DTL Bicarbonate, S 26 22 - 29 mmol/L 05/04/2023 11:19 AM CYTOLOGY MANAGER DTL Anion Gap 12 7 - 15 05/04/2023 11:19 AM CYTOLOGY MANAGER DTL BUN (Blood Urea Nitrogen), S 21 8 - 24 mg/dL 05/04/2023 11:19 AM CYTOLOGY MANAGER DTL Creatinine 1.26 0.74 - 1.35 mg/dL 05/04/2023 11:19 AM CYTOLOGY MANAGER DTL Estimated GFR (eGFR) 63 >=60 mL/min/BSA 05/04/2023 11:19 AM CYTOLOGY MANAGER DTL Comment: Estimated GFR calculated using the 2020 CKD_EPI creatinine equation. Calcium, Total, S 9.7 8.8 - 10.2 mg/dL 05/04/2023 11:19 AM CYTOLOGY MANAGER DTL Glucose, S 94 70 - 140 mg/dL 05/04/2023 11:19 AM CYTOLOGY MANAGER DTL Blood (Blood, Venous) 05/04/2023 9:38 AM CYTOLOGY MANAGER 05/04/2023 10:04 AM CYTOLOGY MANAGER Leighann Martinez APRNNFcoPFco LAB BLO OD ADD-ON [facility] [address] [place] [address], [place] DTL [facility] [address] [place] [address] * Initial Rad Onc Treatment Planning CT Simulation (03/13/2023 2:15 PM CYTOLOGY MANAGER) Narrative RENE LUQUE - 03/13/2023 2:15 PM CYTOLOGY MANAGER Gregoria Vega, RTT ? 03/13/2023 ??2:39 PM Initial Rad Onc Treatment Planning CT Simulation Performed by: Lauren Hernandez M.D. Authorized by: Lauren Hernandez M.D. ?? Lauren Hernandez M.D. RADIATION ONCOLOG Y ORDERABLES RENE LUQUE na * Dental Lab (03/11/2023) Narrative Bhavna Engel - 03/11/2023 Poured and trimmed by Renetta Narvaez C.D.T. Fluoride carriers by Radha Engel Joe Moseley B.D.S. DENTAL ORDE RABDANG * [facility] (03/10/2023 5:56 PM CYTOLOGY MANAGER) Narrative Joe Moseley B.D.S. - 03/10/2023 5:56 PM CYTOLOGY MANAGER Panoramic radiograph taken and reviewed. Image(s) revealed There are no central bony or odontogenic lesions in the body or ascending rami of the mandible. Mandibular condyles appear well rounded and well corticated with no signs of pathology. Dental roots appear normal with no signs of resorption or periapical radiolucencies. No dental caries is evident; however, this radiograph is non-diagnostic for all but the largest carious lesions. ??Panoramic radiograph shows implants in sites # 19 #30 oJe DanielSFco DENTAL ORDE RABLES * FL Swallow Function with Video and Speech or OT (03/09/2023 10:50 AM CYTOLOGY MANAGER) Anatomical Region Laterality Modality Gastro Intestinal, Abdominal RST LOS, Abdominal ARZ LOS, Abdominal FLA LOS N/A Digital Radiography 03/09/2023 10:4 6 AM CYTOLOGY MANAGER Impressions 03/09/2023 10:53 AM CYTOLOGY MANAGER 1. Negative video swallowing study. Narrative 03/09/2023 10:53 AM CYTOLOGY MANAGER EXAM: FL SWALLOW FUNCTION WITH VIDEO AND SPEECH OR OT FOR RST FINDINGS: VIDEO SWALLOWING STUDY: Video swallowing study was performed with: Speech pathology Please see their report for more information. The following consistencies were administered: Thin Liquid Mildly Thick Liquid Puree Solid Regular Solid No penetration or aspiration with any consistency. No significant residual. Procedure Note Reynaldo Amador M.D. - 03/09/2023 EXAM: FL SWALLOW FUNCTION WITH VIDEO AND SPEECH OR OT FOR RST FINDINGS: VIDEO SWALLOWING STUDY: Video swallowing study was performed with: Speech pathology Please see their report for more information. The following consistencies were administered: Thin Liquid Mildly Thick Liquid Puree Solid Regular Solid No penetration or aspiration with any consistency. No significantresidual. IMPRESSION: 1. Negative video swallowing study. David Soto M.D. IMNishant FLUOROSCOPY MD OCEDURES * Direct Laryngoscopy-Otorhinolaryngology Image Exam (03/05/2023 10:11 AM CYTOLOGY MANAGER) 03/05/2023 10:5 1 AM CYTOLOGY MANAGER Narrative IIMS - 03/05/2023 10:11 AM CYTOLOGY MANAGER This order has been created and auto-finalized to support the import of images acquired without order. The clinical documentation to support these images can be found on the encounter that produced images. Provider Not In System IMG NON RAD IMAGI NG PROCEDURES IIMS NA * US Lymph Node Biopsy (03/05/2023 8:46 AM CYTOLOGY MANAGER) Anatomical Region Laterality Modality Body, Ultrasound RST LOS, Ul trasound ARZ LOS, Procedure FLA LOS, Abdominal FLA LOS, Procedural N/A Ultrasound 03/05/2023 9:13 AM CYTOLOGY MANAGER Impressions 03/05/2023 9:17 AM CYTOLOGY MANAGER Ultrasound-guided biopsy of an enlarged left neck lymph node. EP Narrative 03/05/2023 9:17 AM CYTOLOGY MANAGER EXAM: US LYMPH NODE BIOPSY PRE-PROCEDURE: Patient seen and evaluated. Allergies, pertinent medications, and history reviewed. Discussed risks, benefits, alternatives for procedure, and obtained informed consent. Patient understands information and questions answered. Immediately prior to starting the procedure, in the presence of the assisting personnel, procedural pause was conducted to verify correct patient identity and verification of procedure to be performed, and as applicable, correct side and site, correct patient position, availability of implants, special equipment, or special requirements, and all image and specimen identification data. The roles and responsibilities of care team members, residents, and fellows were discussed. TECHNIQUE: Sterile. 1% lidocaine for local anesthesia. Location: Enlarged left neck level 2/3 lymph node. Target lesion size: 1.2 x 1.8 x 2.8 cm. Needle size: 18-gauge core needle biopsy device. Number of passes: 6 Complication: None. Blood loss: None. PATIENT INSTRUCTIONS: Patient may be dismissed from the radiology department when dismissal criteria met. POST-PROCEDURE DIAGNOSIS: Left neck adenopathy. Procedure Note Shaun Rosa M.D. - 03/05/2023 EXAM: US LYMPH NODE BIOPSY PRE-PROCEDURE: Patient seen and evaluated. Allergies, pertinentmedications, and history reviewed. Discussed risks, benefits, alternativesfor procedure, and obtained informed consent. Patient understandsinformation and questions answered. Immediately prior to starting the procedure, in the presence of the assistingpersonnel, procedural pause was conducted to verify correct patientidentity and verification of procedure to be performed, and as applicable,correct side and site, correct patient position, availability of implants, special equipment, or specialrequirements, and all image and specimen identification data. The rolesand responsibilities of care team members, residents, and fellows werediscussed. TECHNIQUE: Sterile. 1% lidocaine for local anesthesia. Location: Enlarged left neck level 2/3 lymph node. Target lesion size: 1.2 x 1.8 x 2.8 cm. Needle size: 18-gauge core needle biopsy device. Number of passes: 6 Complication: None. Blood loss: None. PATIENT INSTRUCTIONS: Patient may be dismissed from the radiologydepartment when dismissal criteria met. POST-PROCEDURE DIAGNOSIS: Left neck adenopathy. IMPRESSION: Ultrasound-guided biopsy of an enlarged left neck lymph node. EP David Soto M.D. IMNishant US PROCEDURES * (ABNORMAL) Cytology Fine Needle Aspiration (including core biopsies) (03/05/2023 8:26 AM CYTOLOGY MANAGER) (A) 3:41 PM CYTOLOGY MANAGER DTL Disclaimer Test results for (IHC or RODRÍGUEZ) testing are valid for specimens fixed between 6 and 72 hours. ??Delay to fixation, under fixation or over fixation fall outside of guidelines and may affect these results. (A) 03/06/2023 3:41 PM CYTOLOGY MANAGER DTL Report electronically signed by Deann Cabral M.D. I verify that I have examined all relevant slides/materials for the specimen(s) and rendered or confirmed the diagnosis. (A) 03/06/2023 3:41 PM CYTOLOGY MANAGER DTL Gross Description Received 6 alcohol-fixed smears and tissue. Received in formalin labeled with the patient's name, medical record number, and left neck lymph node are seven pale ortiz-pink soft tissue cores, 0.1 cm in average diameter and ranging from 0.5-1.1 cm in length. Specimens are submitted en toto in cassettes A1, three cores and A2, four cores. ??Grossed by AJB. (A) 03/06/2023 3:41 PM CYTOLOGY MANAGER DTL Source A. Lymph node, Left neck, fine needle aspiration(A) 03/06/2023 3:41 PM CYTOLOGY MANAGER DTL Addendum HPV (E6/E7) High Risk RODRÍGUEZ performed on block A1 is positive. This indicates positivity for one or more of the following types: 16, 18, 26, 31, 33, 35, 39, 45, 51, 52, 53, 56, 58, 59, 66, 68, 73, and 82. Signed by Deann Cabral M.D. 03/09/2023 6:24 PM This test was developed and its performance characteristics determined by [facility] in a manner consistent with CLIA requirements. This test has not been cleared or approved by the U.S. Food and Drug Administration. (A) 03/09/2023 6:24 PM CYTOLOGY MANAGER DTL Comment:REVISED RESULTS Interpretation A. Lymph node, Left neck, fine needle aspiration (smears/core biopsy): Positive for malignancy. ??Involved by squamous cell carcinoma (see comment). Immunostains performed on block A1 show the neoplastic cells are positive for p40 and p16 (strong, diffuse), while negative for NUT. Comment: ??High-risk Human Papillomavirus (HPV) in situ hybridization (RODRÍGUEZ) studies will be performed, and the results will be reported in an addendum. (A) 03/09/2023 6:24 PM CYTOLOGY MANAGER DTL Tissue (Lymph Node) 03/05/2023 8:26 AM CYTOLOGY MANAGER 03/05/2023 9:12 AM CYTOLOGY MANAGER David Soto M.D. LAB SURG PATH [facility] [address] [place] [address], [facility] DTL [address] [place] [address] * CBC with Differential, Blood (03/02/2023 8:11 AM CYTOLOGY MANAGER) Hemoglobin 15.5 13.2 - 16.6 g/dL 03/02/2023 9:20 AM CYTOLOGY MANAGER DTL Hematocrit 46.1 38.3 - 48.6 % 03/02/2023 9:20 AM CYTOLOGY MANAGER DTL Erythrocytes 5.02 4.35 - 5.65 x10(12)/L 03/02/2023 9:20 AM CYTOLOGY MANAGER DTL MCV 91.8 78.2 - 97.9 fL 03/02/2023 9:20 AM CYTOLOGY MANAGER DTL RBC Distrib Width 12.9 11.8 - 14.5 % 03/02/2023 9:20 AM CYTOLOGY MANAGER DTL Platelet Count 138 135 - 317 x10(9)/L 03/02/2023 9:20 AM CYTOLOGY MANAGER DTL Leukocytes 5.4 3.4 - 9.6 x10(9)/L 03/02/2023 9:20 AM CYTOLOGY MANAGER DTL Neutrophils 2.31 1.56 - 6.45 x10(9)/L 03/02/2023 9:20 AM CYTOLOGY MANAGER [facility] Lymphocytes 2.63 0.95 - 3.07 x10(9)/L 03/02/2023 9:20 AM CYTOLOGY MANAGER DTL Monocytes 0.45 0.26 - 0.81 x10(9)/L 03/02/2023 9:20 AM CYTOLOGY MANAGER DTL Eosinophils <0.03 0.03 - 0.48 x10(9)/L 03/02/2023 9:20 AM CYTOLOGY MANAGER DTL Basophils <0.03 0.01 - 0.08 x10(9)/L 03/02/2023 9:20 AM CYTOLOGY MANAGER DTL Blood (Blood, Venous) 03/02/2023 8:11 AM CYTOLOGY MANAGER 03/02/2023 8:35 AM CYTOLOGY MANAGER David Soto M.D. LAB BLOOD ADD-ON [facility] [address] [place] [address], [facility] [address] [place], [place] [id number] [place] [address] [address] [place] [address] * Bilirubin, Direct (03/02/2023 8:11 AM CYTOLOGY MANAGER) Bilirubin, Direct, S <0.2 0.0 - 0.3 mg/dL 03/02/2023 9:21 AM CYTOLOGY MANAGER DTL Blood (Blood, Venous) 03/02/2023 8:11 AM CYTOLOGY MANAGER 03/02/2023 9:04 AM CYTOLOGY MANAGER David Soto M.D. LAB BLOOD ADD-ON [facility] [address] [place] [address], [facility] [address] [place] [address] * (ABNORMAL) Comprehensive Metabolic Panel (03/02/2023 8:11 AM CYTOLOGY MANAGER) [facility] Potassium, S 4.9 3.6 - 5.2 mmol/L 03/02/2023 9:21 AM CYTOLOGY MANAGER DTL Sodium, S 141 135 - 145 mmol/L 03/02/2023 9:21 AM CYTOLOGY MANAGER DTL Chloride, S 104 98 - 107 mmol/L 03/02/2023 9:21 AM CYTOLOGY MANAGER DTL Bicarbonate, S 27 22 - 29 mmol/L 03/02/2023 9:21 AM CYTOLOGY MANAGER DTL Anion Gap 10 7 - 15 03/02/2023 9:21 AM CYTOLOGY MANAGER DTL BUN (Blood Urea Nitrogen), S 17 8 - 24 mg/dL 03/02/2023 9:21 AM CYTOLOGY MANAGER DTL Creatinine 1.35 0.74 - 1.35 mg/dL 03/02/2023 9:21 AM CYTOLOGY MANAGER DTL Estimated GFR (eGFR) 58(L) >=60 mL/min/BS A 03/02/2023 9:21 AM CYTOLOGY MANAGER DTL Comment: Estimated GFR calculated using the 2020 CKD_EPI creatinine equation. Calcium, Total, S 9.0 8.8 - 10.2 mg/dL 03/02/2023 9:21 AM CYTOLOGY MANAGER DTL Glucose, S 98 70 - 140 mg/dL 03/02/2023 9:21 AM CYTOLOGY MANAGER DTL Protein, Total, S 6.8 6.3 - 7.9 g/dL 03/02/2023 9:21 AM CYTOLOGY MANAGER DTL Albumin, S 4.2 3.5 - 5.0 g/dL 03/02/2023 9:21 AM CYTOLOGY MANAGER DTL Aspartate Aminotransferase (AST), S 41 8 - 48 U/L 03/02/2023 9:21 AM CYTOLOGY MANAGER DTL Alkaline Phosphatase, S 67 40 - 129 U/L 03/02/2023 9:21 AM CYTOLOGY MANAGER DTL Alanine Aminotransferase (ALT), S 52 7 - 55 U/L 03/02/2023 9:21 AM CYTOLOGY MANAGER DTL Bilirubin, Total, S 0.4 0.0 - 1.2 mg/dL 03/02/2023 9:21 AM CYTOLOGY MANAGER DTL Blood (Blood, Venous) 03/02/2023 8:11 AM CYTOLOGY MANAGER 03/02/2023 9:04 AM CYTOLOGY MANAGER David Soto M.D. LAB BLOOD ADD-ON [facility] [address] [place] [address], [place] DTL [facility] [address] [place] [address] * PET CT Skull to Thigh FDG (03/02/2023 8:00 AM CYTOLOGY MANAGER) Anatomical Region Laterality Modality Body, Nuclear Medicine PET R ST LOS, PET ARZ LOS, Nuclear Medicine PET FLA LOS, Nuclear Medicine N/A Positron Emission Tomography (PET), Positron Emission Tomography (PET) 03/02/2023 8:32 AM CYTOLOGY MANAGER Impressions 03/02/2023 9:56 AM CYTOLOGY MANAGER 1. 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 2. ??Possible FDG avid colon polyp. Recommend colonoscopy correlation, if clinically indicated. Narrative 03/02/2023 9:56 AM CYTOLOGY MANAGER EXAM: ??PET CT SKULL TO THIGH FDG Serum glucose at time of F-18 FDG injection was 109 mg/dL. Patient followed standard dietary/fasting requirements for this exam. RADIOPHARMACEUTICAL/MEDS: Route: intravenous fludeoxyglucose F 18 injection ASSISTED (FDG F-18),9.96 millicurie TECHNIQUE: ??F-18 FDG PET/CT scan was performed from the orbits to the proximal thighs including dedicated head and neck views with low dose, non-contrast, free-breathing CT images for attenuation correction and anatomic localization (AC/AL), with imaging beginning at approximately 60 minutes after radiotracer injection. COMPARISON: ??Outside CT neck soft tissue 02/12/2023 INDICATION: Suspected tonsillar malignancy. Initial treatment strategy. FINDINGS: ??Focal intense FDG uptake within the left tonsil and tongue base with SUV max 17.7 (axial fused head and neck image 39 for example). Multiple metastatic FDG avid left cervical level IIA and IIB nodes, the largest and most avid measuring 13 mm in short axis with SUVmax of 9.4 (axial fused head and neck image 48). Low-level uptake within multiple additional normal-sized bilateral cervical lymph nodes, best seen on the advanced PET reconstruction from the dedicated head and neck acquisition, are likely reactive. No pathologic right-sided cervical lymphadenopathy. Heterogeneous uptake throughout the thyroid gland suggesting thyroiditis. Focal uptake within a markedly redundant sigmoid colon (axial fused torso image 220) in an area of diverticulosis. This could be a focally inflamed diverticulum, but also could represent an FDG avid colonic polyp. Recommend colonoscopy, especially if patient is not currently up-to-date. Soft tissue thickening with increased uptake along the right femoral neck (SUVmax 6.1, axial fused torso image 263) could represent focal synovitis. A tenosynovial giant cell tumor would be an additional consideration. Significant incidental findings on low-dose noncontrast CT images: Mild mucosal thickening within the left maxillary sinus. Degenerative changes throughout the spine, both shoulders and both hips. Scattered scarring in the lung bases. Cholecystectomy. Vasectomy clips. Scattered atherosclerotic arterial calcifications. Procedure Note Julian Mohamud M.D. - 03/02/2023 EXAM: PET CT SKULL TO THIGH FDG Serum glucose at time of F-18 FDG injection was 109 mg/dL. Patientfollowed standard dietary/fasting requirements for this exam. RADIOPHARMACEUTICAL/MEDS: Route: intravenous fludeoxyglucose F 18 injection ASSISTED (FDG F-18),9.96 millicurie TECHNIQUE: F-18 FDG PET/CT scan was performed from the orbits to theproximal thighs including dedicated head and neck views with low dose,non-contrast, free- breathing CT images for attenuation correction andanatomic localization (AC/AL), with imaging beginning at approximately 60 minutes after radiotracer injection. COMPARISON: Outside CT neck soft tissue 02/12/2023 INDICATION: Suspected tonsillar malignancy. Initial treatment strategy. FINDINGS: Focal intense FDG uptake within the left tonsil and tongue basewith SUV max 17.7 (axial fused head and neck image 39 for example). Multiple metastatic FDG avid left cervical level IIA and IIB nodes, thelargest and most avid measuring 13 mm in short axis with SUVmax of 9.4(axial fused head and neck image 48). Low-level uptake within multiple additional normal-sized bilateralcervical lymph nodes, best seen on the advanced PET reconstruction fromthe dedicated head and neck acquisition, are likely reactive. Nopathologic right-sided cervical lymphadenopathy. Heterogeneous uptake throughout the thyroid gland suggestingthyroiditis. Focal uptake within a markedly redundant sigmoid colon (axial fused torsoimage 220) in an area of diverticulosis. This could be a focally inflameddiverticulum, but also could represent an FDG avid colonic polyp.Recommend colonoscopy, especially if patient is not currently up-to-date. Soft tissue thickening with increased uptake along the right femoral neck(SUVmax 6.1, axial fused torso image 263) could represent focal synovitis.A tenosynovial giant cell tumor would be an additional consideration. Significant incidental findings on low-dose noncontrast CT images: Mildmucosal thickening within the left maxillary sinus. Degenerative changesthroughout the spine, both shoulders and both hips. Scattered scarring inthe lung bases. Cholecystectomy. Vasectomy clips. Scattered atherosclerotic arterial calcifications. IMPRESSION: 1. 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 2. Possible FDG avid colon polyp. Recommend colonoscopy correlation, ifclinically indicated. David RAUSCH NM PROCEDURES * US Thyroid (02/26/2023 11:20 AM CDT) Anatomical Region Laterality Modality Head and Neck, Ultrasound RS T LOS, Ultrasound ARZ LOS, Ultrasound FLA LOS N/A Ultrasound 02/26/2023 11:2 5 AM CDT Impressions 02/26/2023 11:35 AM CDT 1. The thyroid gland is markedly heterogeneous with no distinct focal abnormality or nodule, which may reflect changes of thyroiditis. 2. 5 abnormal appearing nodes are identified in the left level 2 neck. The largest palpable node measures up to 2.8 cm and is amenable to biopsy. Narrative 02/26/2023 11:35 AM CDT EXAM: US THYROID COMPARISON: None available at this time FINDINGS: The right thyroid lobe measures: 2.0 cm x 2.1 cm x 4.2 cm The left thyroid lobe measures: 2.0 cm x 1.9 cm x 3.6 cm The isthmus measures: 4.6 mm in AP diameter. Thyroid parenchymal evaluation shows: The thyroid gland is markedly heterogeneous with no distinct focal abnormality or nodule, which may reflect changes of thyroiditis. Lymph nodes: ??Neck levels 1-7 were surveyed and demonstrated 5 abnormal appearing nodes in the left level 2A and 2B neck which appear hypoechoic with abnormal morphology and tiny punctate echogenic foci or calcifications. The largest node is palpable, measuring 1.3 cm x 2.4 cm x 2.8 cm and would be amenable to biopsy. Procedure Note Marine Nino M.D. - 02/26/2023 EXAM: US THYROID COMPARISON: None available at this time FINDINGS: The right thyroid lobe measures: 2.0 cm x 2.1 cm x 4.2 cm The left thyroid lobe measures: 2.0 cm x 1.9 cm x 3.6 cm The isthmus measures: 4.6 mm in AP diameter. Thyroid parenchymal evaluation shows: The thyroid gland is markedlyheterogeneous with no distinct focal abnormality or nodule, which may reflect changes of thyroiditis. Lymph nodes: Neck levels 1-7 were surveyed and demonstrated 5 abnormalappearing nodes in the left level 2A and 2B neck which appear hypoechoic with abnormal morphology andtiny punctate echogenic foci or calcifications. The largest node is palpable, measuring 1.3 cm x2.4 cm x 2.8 cm and would be amenable to biopsy. IMPRESSION: 1. The thyroid gland is markedly heterogeneous with no distinct focalabnormality or nodule, which may reflect changes of thyroiditis. 2. 5 abnormal appearing nodes are identified in the left level 2 neck. Thelargest palpable node measures up to 2.8 cm and is amenable to biopsy. David Soto M.D. IMG US PROCEDURES * CT SOFT TISSUE NECK W CON-Outside CT Neuro (02/12/2023 8:40 AM CDT) Narrative IIMS - 02/26/2023 1:59 PM CDT This order has been created and auto-finalized to support the import of outside images. If available, original interpretation can be found on the Media Tab in Chart Review, in Document Viewer, or as an image in QREADS. If a re-interpretation or overread is required please follow defined workflow. ?? Provider Not In System IMG CT PROCEDURES IIMS NA from Last 3 Months
--- OUTSIDE RECORDS SUMMARY | 2023-05-06 10:43 | XMS_ITS | Encounter Summary ---
Author Name Unknown Organization [facility] Address [address] [place] [address] Care Team Providers Care Mathematics Faculty Member Name Role Phone Unavailable Primary Care Provider Unavailabl e Reason for Visit * Radiation Therapy (Routine) - Authorized Specialty Diagnoses / Procedures Referred By Contac t Referred To Contact Diagnoses Malignant Neoplasm Of Oropharynx (HCC) Procedures Prior Auth Rad Tx [place] IMRT COMPLEX IMRT Lauren Hernandez M.D. [address] [place] [phone] [facility] [place] [address] [place] [phone] Referral ID Status Reason Start Date Expiration Date V isits Requested Visits Authorized [id number] Authorized 03/23/2023 03/11/2024 35 35 Encounter Details Date Type Department Care Team (Late st Contact Info) Description 05/06/2023 7:52 AM [facility] Hospital Encounter Department of Radiation Oncology in [place], [place] [address] [place] [phone] Lauren Hernandez M.D. [address] [place] [phone] Social History Tobacco Use Types Packs/Day Years Used Date Smoking Tobacco: Former Cigarettes 3 14 Q uit: 09/01/2010 Smokeless Tobacco: Never Alcohol Use Standard Drinks/Week Comments Yes 0 [...] your living situation today? I have a [facility] place to live 03/01/2023 Sex and Gender Information Value Date Recorded Sex Assigned at Male 03/01/2023 1:25 PM WORK DISTRIBUTOR Gender Identity Male 03/01/2023 1:25 PM WORK DISTRIBUTOR Sexual Orientation Not on file documented as of this encounter Plan of Treatment Upcoming Encounters Date Type Department Care Team (Late st Contact Info) Description 05/07/2023 8:00 AM WORK DISTRIBUTOR Appointment Department of Radiation Oncology in [place], [place] [address] [place] [phone] Lauren Hernandez M.D. 200 [place] [phone] 05/07/2023 10:00 AM WORK DISTRIBUTOR Virtual Visit Division of Endocrinology in [place], [place] [address] [place] [phone] Kendra Tinsley APRN, C.N.P. [address] [place] [phone] 05/08/2023 8:00 AM WORK DISTRIBUTOR Appointment Department of Radiation Oncology in [place], [place] [address] [place] [phone] Lauren Hernandez M.D. [address] [place] [phone] 05/11/2023 8:15 AM WORK DISTRIBUTOR Appointment Department of Radiation Oncology in [place], [place] [address] [place] [phone] Lauren Hernandez M.D. [address] [place] [phone] documented as of this encounter Visit Diagnoses Not on filedocumented in this encounter
--- OUTSIDE RECORDS SUMMARY | 2023-05-06 10:43 | XMS_ITS | Encounter Summary ---
Author Name Unknown Organization [facility] Address [address] [place] [address] Care Team Providers Care Legal Arbitrator Name Role Phone Unavailable Primary Care Provider Unavailabl e Reason for Referral * Outpatient (Routine) - Closed Specialty Diagnoses / Procedures Referred By Diamond montemayor Referred To Contact Radiology Diagnoses Gastrostomy Status (HCC) Procedures IR Gastrostomy Tube Check Kelly Peter APRN, C.N.P., D.N.P. [address] [place] [phone] [facility] Referral ID Status Reason Start Date Expiration Date Visits Re quested Visits Authorized [id number] Closed 05/05/2023 05/04/2024 1 1 GER FIBER Reason for Visit * Outpatient (Routine) - Closed Specialty Diagnoses / Procedures Referred By Diamond montemayor Referred To Contact Radiology Diagnoses Gastrostomy Status (HCC) Procedures IR Gastrostomy Tube Check Kelly Peter APRN, C.N.P., D.N.P. [address] [place] [phone] [facility] Referral ID Status Reason Start Date Expiration Date Visits Re quested Visits Authorized [id number] Closed 05/05/2023 05/04/2024 1 1 Encounter Details Date Type Department Care Team (Latest Contact Info) Description 05/05/2023 9:20 AM MANAGER FIBER - 05/05/2023 10:57 AM MANAGER FIBER Hospital Encounter Department of Radiology in [place], [place] [address] [place] [phone] Kelly Peter, PATRICE, C.N.P., D.N.P. [address] [place] [phone] Carlito Chaudhry M.D. [address] [place] [phone] Andrea Perry M.D. [address] [place] [phone] Gastrostomy Status (HCC) Discharge Disposition: Home or Self Care Social History Tobacco Use Types Packs/Day Years [...] money to buy more. Never true 03/01/20 23 Within the past 12 months, t he [...] your living situation today? I have a [facility] place to live 03/01/2023 Sex and Gender Information Value Date Recorded Sex Assigned at Male 03/01/2023 1:25 PM MANAGER FIBER Gender Identity Male 03/01/2023 1:25 PM MANAGER FIBER Sexual Orientation Not on file documented as of this encounter Last Filed Vital Signs Vital Sign Reading Time Taken Comments Blood Pressure 94/66 05/05/2023 10:30 AM MANAGER FIBER Pulse 69 05/05/2023 10:30 AM MANAGER FIBER Temperature 36.6 ??C (97.9 ??F) 05/05/2023 10:[address] Respiratory Rate 18 05/05/2023 10:46 AM MANAGER FIBER Oxygen Saturation 96% 05/05/2023 10:46 AM MANAGER FIBER Inhaled Oxygen Concentration - - Weight 108 kg (237 lb 7 oz) 05/05/2023 9:[address] Height - - Body Mass Index 37.09 05/05/2023 7:52 AM MANAGER FIBER documented in this encounter Medications at Time of Discharge Medication Sig Dispensed Refills Start Date End Date atorvastatin (LIPITOR) 10 mg tablet atorvastatin 10 mg oral tablet Start Date: 08/23/20 Status: Ordered 0 08/22/2020 azelaic acid (FINACEA) 15 % gel 0 09/20/2020 diphenhydramine-lidoca ine 2 %-antacid (mw)Indications:breakt hrough cancer pain Take 5-10 mL by mouth 4 (four) times a day before meals and bedtime Indications: pain in a cancer patient when on pain medication. Swish in mouth for 1 minute and then spit out solution.Do not eat or drink for 15-30 minutes after use. 480 mL 2 04/07/2023 finasteride (PROSCAR) 5 mg tablet finasteride 5 mg oral tablet Start Date: 09/28/20 Status: Ordered 0 09/28/2020 fluoride, sodium, (PREVIDENT) 1.1 % gel dental gel Apply 1 Application to the mouth or throat daily. Floss, brush, baking soda rinse. Apply thin gel ribbon to trays wear 5 minutes. Remove trays expectorate excess gel. No eating drinking or rinsing for 30 min. 100 mL 12 03/10/2023 03/09/2024 glucosamine portillo 2KCl-chondroit (Glucosamine-Chondroit in 3X Str) 750-600 mg tablet 0 04/27/2012 glucosamine sulfate (GLUCOSAMINE ORAL) Take 2 capsules by mouth daily. 0 03/08/2011 ibuprofen (ADVIL,MOTRIN) 200 mg tablet Take 3-4 tablets by mouth daily as needed. unknown 0 08/07/2008 levothyroxine (SYNTHROID, LEVOTHROID) 125 mcg tablet 0 02/25/2023 naloxone (NARCAN) 4 mg/actuation nasal spray Administer 1 spray (4 mg total) into one nostril as needed for reversal. Use 1 spray in 1 nostril. Repeat with second device in other nostril after 2-3 minutes if no or minimal response. 4 each 0 04/29/2023 ondansetron (ZOFRAN) 4 mg tablet Take 4 mg by mouth. 0 03/17/2023 prochlorperazine (COMPAZINE) 5 mg tablet Take 5 mg by mouth every 8 (eight) hours as needed for nausea or vomiting. 0 03/17/2023 rivaroxaban (XARELTO) 20 mg tablet rivaroxaban 20 mg oral tablet Start Date: 02/14/21 Status: Ordered 0 11/25/2016 documented as of this encounter Procedure Notes * Andrea Perry M.D. - 05/05/2023 10:49 AM CST PATIENT DISPOSITION Return to Outpatient Unit for recovery. Discharge patient when discharge criteria met. POST-PROCEDURE DIAGNOSIS Abdominal pain after g-tube placement PROCEDURE PERFORMED AND DESCRIPTION Gastrostomy tube check. This demonstrates appropriate position and function of the tube. PROCEDURE DETAILS See Radiology Report SPECIMENS REMOVED None FINDINGS See above and full dictation to follow. PRIMARY PROCEDURALIST MD [facility] ASSISTANTS MD [place] COMPLICATIONS None. DRAINS None. IMPLANTS None. ANESTHESIA None. FLUIDS See MAR ESTIMATED BLOOD LOSS <5ml CURRENT MEDICATIONS No Medication Changes FOLLOW-UP LETTER None. MAY RETURN TO WORK As tolerated PATIENT INSTRUCTIONS No return appointment GER FIBER documented in this encounter Plan of Treatment Upcoming Encounters Date Type Department Care Team (Late st Contact Info) Description 05/07/2023 8:00 AM MANAGER FIBER Appointment Department of Radiation Oncology in [address] [phone] Lauren Hernandez M.D. [address] [place] [phone] 05/07/2023 10:00 AM MANAGER FIBER Virtual Visit Division of Endocrinology in [place], [place] [address] [place] [phone] Kendra Tinsley APRN, C.N.P. [address] [place] [phone] 05/08/2023 8:00 AM MANAGER FIBER Appointment Department of Radiation Oncology in [address] [phone] Lauren Hernandez M.D. [address] [place] [phone] 05/11/2023 8:15 AM MANAGER FIBER Appointment Department of Radiation Oncology in [address] [phone] Lauren Hernandez M.D. [address] [place] [phone] documented as of this encounter Procedures Procedure Name Priority Date/Time Associated Diagnosis Comments IR GASTROSTOMY TUBE CHECK RAD - Routine (most inpatients and all outpatients) 05/05/2023 10:36 AM MANAGER FIBER Gastrostomy Status (HCC) documented in this encounter Results * IR Gastrostomy Tube Check (05/05/2023 10:36 AM MANAGER FIBER) Anatomical Region Laterality Modality Abdomen, Vascular Interventi onal RST LOS, Vascular Interventional FLA LOS N/A X-Ray Angiography Impressions 05/05/2023 11:03 AM MANAGER FIBER Appropriate position and function of the 16 Wallisian gastrostomy tube placed yesterday. No leakage of contrast into the peritoneal cavity. No definitive fluoroscopic explanation for the patient's abdominal pain. EP Narrative 05/05/2023 11:03 AM MANAGER FIBER EXAM: IR GASTROSTOMY TUBE CHECK CLINICAL HISTORY: 68-year-old male with abdominal pain after G-tube placement yesterday. Presents for G-tube check. TECHNIQUE: The patient was positioned supine on the fluoroscopy table. Recruiter Manager image of the abdomen demonstrates contrast in [...] patient was positioned supine on the fluoroscopy table.Recruiter Manager image of the abdomen demonstrates contrast in [...] Appropriate position and function of the 16 Wallisian gastrostomy tube placedyesterday. No leakage of contrast into the peritoneal cavity. Nodefinitive fluoroscopic explanation for the patient's abdominal pain. EP Kelly C Rome IBRAHIM, C.N.P., D.N.P. IMG I R PROCEDURES documented in this encounter Visit Diagnoses Diagnosis Gastrostomy Status (HCC) documented in this encounter Administered Medications Inactive Administered Medications - up to 3 most recent administrations Medication Order MAR Action Action Date Dose Rate Site iohexoL 300 mg iodine/mL solution (OMNIPAQUE) As needed, Starting on Thu05/05/23 at 1036, Intra-Op Given 05/05/2023 10:36 AM MANAGER FIBER 30 mL documented in this encounter Active and Recently Administered Medications Times are shown in MANAGER FIBER. PRN Medication Order 05/03/2023 05/04/2023 05/05/2023 iohexoL 300 mg iodine/mL solution (OMNIPAQUE) (COMPLETED) As needed, Starting on Thu05/05/23 at 1036, Intra-Op 1036 (Given - Provid er: Carlito Chaudhry M.D.) documented in this encounter
--- OUTSIDE RECORDS SUMMARY | 2023-05-06 10:43 | XMS_ITS | Encounter Summary ---
Author Name Unknown Organization [facility] Address [address] [place] [address] Care Team Providers Care Pain Medicine Physician Name Role Phone Unavailable Primary Care Provider Unavailabl e Reason for Referral * Radiation Therapy (Routine) - Authorized Specialty Diagnoses / Procedures Referred By Diamond montemayor Referred To Contact Diagnoses Malignant Neoplasm Of Oropharynx (HCC) Procedures Management Visit Lauren Hernandez M.D. 200 [place] [phone] [facility] Region Referral ID Status Reason Start Date Expiration Date V isits Requested Visits Authorized [id number] Authorized 03/12/2023 03/11/2024 10 10 EL BANDER Reason for Visit * Radiation Therapy (Routine) - Authorized Specialty Diagnoses / Procedures Referred By Diamond montemayor Referred To Contact Diagnoses Malignant Neoplasm Of Oropharynx (HCC) Procedures Management Visit Laurne Hernandez M.D. [address] [place] [phone] [facility] Region Referral ID Status Reason Start Date Expiration Date V isits Requested Visits Authorized [id number] Authorized 03/12/2023 03/11/2024 10 10 Encounter Details Date Type Department Care Team (Latest Contact Info) Description 05/05/2023 1:00 PM BARREL BANDER - 05/05/2023 1:14 PM BARREL BANDER Hospital Encounter Department of Radiation Oncology in [address] [phone] Lauren Hernandez M.D. [address] [place] [phone] Malignant Neoplasm Of Oropharynx (HCC) Social History Tobacco Use Types Packs/Day Years [...] your living situation today? I have a [facility] place to live 03/01/2023 Sex and Gender Information Value Date Recorded Sex Assigned at Male 03/01/2023 1:25 PM BARREL BANDER Gender Identity Male 03/01/2023 1:25 PM BARREL BANDER Sexual Orientation Not on file documented as of this encounter Last Filed Vital Signs Vital Sign Reading Time Taken Comments Blood Pressure 130/74 05/05/2023 2:38 PM BARREL BANDER Pulse 71 05/05/2023 2:38 PM BARREL BANDER Temperature 36.5 ??C (97.7 ??F) 05/05/2023 2:38 PM CS T Respiratory Rate - - Oxygen Saturation - - Inhaled Oxygen Concentration - - Weight 108 kg (237 lb 10.5 oz) 05/05/2023 2:38 P M BARREL BANDER Height - - Body Mass Index 37.13 05/05/2023 7:52 AM BARREL BANDER documented in this encounter Medications at Time [...] 0 11/25/2016 documented as of this encounter Progress Notes * Lauren Hernandez M.D. - 05/05/2023 1:00 PM CST ATTESTATION FOR MANAGEMENT VISIT I saw and evaluated the patient and participated in the zhang portions of the service as noted below.I reviewed the documentation of Ms. Anita Kyle RN and agree with the findings and plan. The patient appears well on exam. We will continue with radiation as planned and we anticipate that he will complete treatments this week. We anticipate that Mr. Tad Roland will complete radiation treatment as planned without interruptions. The course of treatment was tolerated with anticipated side effects. The patient experienced toxicities of grade 3 dysphagia requiring PEG tube, Grade 2 dermatitis, mucositis, pain, weight loss, grade 1 dry mouth, dygeusia, trismus, during radiation treatment. Follow-up will be with me in 1 month; we provided him with refills of his pain medications. He knows to reach out if he should need a refill on his [place] before I see him back. Lauren Hernandez M.D., 05/05/2023 SUBJECTIVE REASON FOR VISIT Evaluation for side effects while receiving radiation treatment for 1. Malignant Neoplasm Of Oropharynx (HCC) SUPERVISED BY: Lauren Hernandez M.D. HISTORY OF PRESENT ILLNESS Mr. Tad Roland is a 68 y.o. 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 He is receiving weekly Cisplatin under the care of Dr. Wu at [facility]. Treatment Course: 1xOpx Plan ID Fractions Dose / Fraction (cGy) Dose Treated (cGy) Dose Planned (cGy) First Treatment Last Treatment Elapsed Days F1Opx 200 6200 7000 03/23/2023 05/05/2023 43 Course Summary 03/23/2023 05/05/2023 43 The patient was seen and examined today with Dr. Hernandez. Patient had g-tube placed on our [facility] yesterday. Patient experiencing epigastric pain post g-tube placement that was intermittent, positional and pressure like feeling. Trial of feeding tune occurred in [facility] earlier today and went well. Patient reports that he is wearing 12 mcg Fentanyl patch and this helps to level is pain. He takes 1 tablet of [place] 1-2 times a day. He is experiencing sore throat pain and mucositis pain inside his mouth. He rates his pain at a 5 out of 10 today. Dry mouth and thick secretions are mild in nature. He is experiencing dysphagia that only allows him to take in liquids only orally. He is taking in milk only orally. He is completes baking soda and salt rinses. He reports taste changes vary. He reports increase in fatigue level with g-tube check earlier today and then radiation treatment. PATIENT REPORTED SYMPTOM SCREEN FATIGUE (Scale: 0 = no fatigue; 10 = worst fatigue you can imagine): 2 PAIN (Scale: 0 = no pain; 10 = worst pain you can imagine): 4 OVERALL QUALITY OF LIFE (Scale: 0 = as bad as can be; 10 = as good as can be): 6 OBJECTIVE BP 130/74 (BP Location: Right arm, Patient Position: Sitting, Cuff Size: Regular) Pulse 71 Temp36.5 ??C (Temporal) Wt 108 kg BMI 37.13 kg/m?? WEIGHTS 03/13/2023: 122 kg 03/26/2023: 124 kg 04/02/2023: 123 kg 04/07/2023: 120 kg 04/15/2023: 117.3 kg 04/22/2023: 114.8 kg 04/29/2022: 111.2 kg 05/05/23: 107.8 kg PHYSICAL EXAM General: Alert and oriented in no apparent distress. Skin: Mild to moderate erythema and dryness noted lower neck to lower subclavicular region. Dry desquamation noted to neck bilaterally Mouth: mucositis noted to posterior aspect of tongue, left lateral aspect of tongue and left posterior buccal mucosa. No signs of infection noted with in the oral cavity. 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 He received first feeding through tube at [facility] earlier today. He has been educated on how to advance on feeding tube feeds and proper hydration flushes needed daily. I discussed timeline of healing process post completionof radiotherapy today. Patient is aware that it can take at least 2-3 weeks for skin changes to start to heal and start of improvement in pain/mucositis to be noted. Patient will slowly increase dietary intake of liquids to soft, moist foods as dysphagia improves in the coming weeks to 1-2 months. We will refill Fentanyl 12 mg patches and [place] tablets today to help with pain control in the recovery period. Fatigue and taste changes can take months to slowly and incrementally improver over time. We discussed Gas-X for the management of gaseous bloating pressure. Patient is scheduled to complete radiation treatment this coming Thursday, May 11, 2023. His last chemotherapy infusion is schedu led for tomorrow. Dr. Hernandez will see patient in follow up in 1 month to check in. He will continuewith radiation treatment as planned. He can contact our care team with any questions or concerns, assistance with symptom management and/or prescription refills. Research toxicities on MLAPS study reviewed with Dr. Hernandez today. Signed by: Anita Kyle R.N. 05/05/2023 3:14 PM BARREL BANDER EL BANDER documented in this encounter Plan of Treatment Upcoming Encounters Date Type Department Care Team (Late st Contact Info) Description 05/07/2023 8:00 AM BARREL BANDER Appointment Department of Radiation Oncology in [address] [phone] Lauren Hernandez M.D. [address] [place] [phone] 05/07/2023 10:00 AM BARREL BANDER Virtual Visit Division of Endocrinology in [place], [place] [address] [place] [phone] Kendra Tinsley, PATRICE, C.N.P. [address] [place] [phone] 05/08/2023 8:00 AM BARREL BANDER Appointment Department of Radiation Oncology in [address] [phone] Lauren Hernandez M.D. [address] [place] [phone] 05/11/2023 8:15 AM BARREL BANDER Appointment Department of Radiation Oncology in [address] [phone] Lauren Hernandez M.D. [address] [place] [phone] Scheduled Orders Name Type Priority Associated Diagnoses Orde r Schedule Management Visit Radiation Oncology Routine Malignant Neoplasm Of Oropharynx (HCC) Once for 1 Occurrences starting 05/05/2023 until 05/05/2023 documented as of this encounter Visit Diagnoses Diagnosis Malignant Neoplasm Of Oropharynx (HCC) documented in this encounter
--- OUTSIDE RECORDS SUMMARY | 2023-05-06 10:43 | XMS_ITS ---
Author Name Unknown Organization [facility] Address [address] [place] [address] Care Team Providers Care Japanese Interpreter Name Role Phone Unavailable Primary Care Provider Unavailabl e Active Problems Problem Noted Date Diagnosed Date Malignant Neoplasm Of Tonsil 03/05/2023 Cancer Staging:Clinical stage from 03/05/2023:Stage I(cT2, cN1, cM0, p16+) - Unsigned Current Oncology Plans No current plan information found. Past Plans No past plan information found. Radiation Treatments * Plan Last Treated On Elapsed Days Fractions Treated Prescribed Fraction Dose Prescribed Total Dose F1Opx 05/06/2023 44 32 of 35 200 cGy 7,000 cGy Reference Point Last Treated On Elapsed Days Session Dose Total Dose [id number] 05/06/2023 44 200 cGy 6,400 cGy Lifetime Dose Tracking * Chemical Lifetime Dose Automatic Entry Manual Entr y Radiation 449.57 mGy 449.57 mGy 0 mGy Fluoro Time 14.36 minutes 14.36 minutes 0 minutes DAP (uGy-m2) 9,126.18 uGy-m2 9,126.18 uGy-m2 0 uGy-m2
--- OUTSIDE RECORDS SUMMARY | 2023-05-06 10:43 | XMS_ITS | Encounter Summary ---
Author Name Unknown Organization [facility] Address [address] [place] [address] Care Team Providers Care Impact Retail Service Merchandiser Name Role Phone Unavailable Primary Care Provider Unavailabl e Encounter Details Date Type Department Care Team (Late st Contact Info) Description 05/05/2023 Documentation Division of General Internal Medicine in [place], [place] [address] [place] [phone] Kaylene Montoya, Pharm.D., R.Ph. Social History Tobacco Use Types Packs/Day Years [...] your living situation today? I have a [facility] place to live 03/01/2023 Sex and Gender Information Value Date Recorded Sex Assigned at Male 03/01/2023 1:25 PM APPLICATION COUNSELOR Gender Identity Male 03/01/2023 1:25 PM APPLICATION COUNSELOR Sexual Orientation Not on file documented as of this encounter Progress Notes * Kaylene Montoya, Pharm.D., R.Ph. - 05/05/2023 7:10 AM CST At the request of Home Enteral [facility], I reviewed Mr. Roland's outpatient medication list for interactions and issues related to administration via G-tube. Current Outpatient Medications Medication Sig atorvastatin (LIPITOR) 10 mg tablet Ok to crush. azelaic acid (FINACEA) 15 % gel Not for tube administration. diphenhydramine-lidocaine 2 %-antacid (mw) Take 5-10 mL by mouth 4 (four) times a day before meals and bedtime Indications: pain in a cancer patient when on pain medication. Swish in mouth for 1 minute and then spit out solution.Do not eat or drink for 15-30 minutes after use. Not for tube administration. fentaNYL (DURAGESIC) 12 mcg/hr patch Place 1 patch on the skin every third day for 3 doses Indication: Acute Pain Exception. Not for tube administration. finasteride (PROSCAR) 5 mg tablet Ok to crush. fluoride, sodium, (PREVIDENT) 1.1 % gel dental gel Apply 1 Application to the mouth or throat daily. Floss, brush, baking soda rinse. Apply thin gel ribbon to trays wear 5 minutes. Remove trays expectorate excess gel. No eating drinking or rinsing for 30 min. Not for tube administration. glucosamine portillo 2KCl-chondroit (Glucosamine-Chondroitin 3X Str) 750-600 mg tablet Not recommended for tube administration. glucosamine sulfate (GLUCOSAMINE ORAL) Take 2 capsules by mouth daily. Not recommended for tube administration. HYDROcodone-acetaminophen (NORCO) 5-325 mg per tablet Take 2 tablets by mouth every 4 (four) hours as needed for pain Indication: Prolonged Acute Pain/Traumatic Injury. Ok to crush. ibuprofen (ADVIL,MOTRIN) 200 mg tablet Take 3-4 tablets by mouth daily as needed. unknown Ok to crush. levothyroxine (SYNTHROID, LEVOTHROID) 125 mcg tablet Ok to crush. naloxone (NARCAN) 4 mg/actuation nasal spray Administer 1 spray (4 mg total) into one nostril as needed for reversal. Use 1 spray in 1 nostril. Repeat with second device in other nostril after 2-3 minutes if no or minimal response. Not for tube administration. ondansetron (ZOFRAN) 4 mg tablet Take 4 mg by mouth. Ok to crush. prochlorperazine (COMPAZINE) 5 mg tablet Take 5 mg by mouth every 8 (eight) hours as needed for nausea or vomiting. Ok to crush. rivaroxaban (XARELTO) 20 mg tablet Ok to crush. In most cases, direct data on medication administration via feeding tubes is not available. Therefore recommendations in many cases, for example ok to crush are provided based on general principlesof administering medications via feeding tube. Because bioavailability may vary with oral and feeding tube administration, close monitoring of drug effects and/or levels is necessary with a change inroute of administration such as this. ICATION COUNSELOR documented in this encounter Plan of Treatment Upcoming Encounters Date Type Department Care Team (Late st Contact Info) Description 05/07/2023 8:00 AM APPLICATION COUNSELOR Appointment Department of Radiation Oncology in [address] [phone] Lauren Hernandez M.D. [address] [place] [phone] 05/07/2023 10:00 AM APPLICATION COUNSELOR Virtual Visit Division of Endocrinology in [place], [place] [address] [place] [phone] Kendra Tinsley APRN, C.N.PFco [address] [place] [phone] 05/08/2023 8:00 AM APPLICATION COUNSELOR Appointment Department of Radiation Oncology in [place], [place] [address] [place] [phone] Lauren Hernandez M.D. [address] [place] [phone] 05/11/2023 8:15 AM APPLICATION COUNSELOR Appointment Department of Radiation Oncology in [place], [place] [address] [place] [phone] Lauren Hernandez M.D. [address] [place] [phone] documented as of this encounter Visit Diagnoses Not on filedocumented in this encounter
--- OUTSIDE RECORDS SUMMARY | 2023-05-06 10:43 | XMS_ITS ---
Author Name Unknown Organization [facility] Address [address] [place] [address] Care Team Providers Care Glove Examiner Name Role Phone Unavailable Unavailable Unavailable Surgery Details Not on file Complications Check Surgery Details section. Procedure Estimated Blood Loss Check Surgery Details section. Procedure Findings Check Surgery Details section. Procedure Specimens Taken Check Surgery Details section.
--- OUTSIDE RECORDS SUMMARY | 2023-05-06 10:43 | XMS_ITS | Encounter Summary ---
Author Name Unknown Organization [facility] Address [address] [place] [address] Care Team Providers Care Sawmill Manager Name Role Phone Unavailable Primary Care Provider Unavailabl e Reason for Referral * Outpatient (Routine) - Authorized Specialty Diagnoses / Procedures Referred By Diamond t Referred To Contact Endocrinology Diagnoses Gastrostomy Status (HCC) Kelly Peter APRN, C.N.P., D.N.P. [address] [place] [phone] [facility] Referral ID Status Reason Start Date Expiration Date V isits Requested Visits Authorized [id number] Authorized 05/05/2023 05/04/2024 1 1 E MAKER * Outpatient (Routine) - Closed Specialty Diagnoses / Procedures Referred By Contac t Referred To Contact Radiology Diagnoses Gastrostomy Status (HCC) Procedures IR Gastrostomy Tube Check Kelly Peter APRN, C.N.P., D.N.P. [address] [place] [phone] [facility] Referral ID Status Reason Start Date Expiration Date Visits Re quested Visits Authorized [id number] Closed 05/05/2023 05/04/2024 1 1 E MAKER Reason for Visit * Outpatient (Routine) - Closed Specialty Diagnoses / Procedures Referred By Diamond montemayor Referred To Contact Nutrition Diagnoses Malignant Neoplasm Of Tonsil (HCC) Lauren Hernandez M.D. [address] [place] [phone] [facility] Referral ID Status Reason Start Date Expiration Date Visits Re quested Visits Authorized [id number] Closed 04/29/2023 04/28/2024 1 1 Encounter Details Date Type Department Care Team (Latest Contact Info) Description 05/05/2023 8:00 AM FENCE MAKER Clinical Support Department of Nutrition and Diabetes Education in [place], [place] [address] [place] [phone] Lauren Hernandez M.D. [address] [place] [phone] Tanvi Zarate, RDN, LD [address] [place] [phone] Oly Mendez M.S., RDN, LD [address] [place] [phone] Gastrostomy Status (HCC) (Primary Dx); Malignant Neoplasm Of Tonsil (HCC) Social History Tobacco Use Types Packs/Day [...] your living situation today? I have a [facility] place to live 03/01/2023 Sex and Gender Information Value Date Recorded Sex Assigned at Male 03/01/2023 1:25 PM FENCE MAKER Gender Identity Male 03/01/2023 1:25 PM FENCE MAKER Sexual Orientation Not on file documented as of this encounter Last Filed Vital Signs Vital Sign Reading Time Taken Comments Blood Pressure - - Pulse - - Temperature - - Respiratory Rate - - Oxygen Saturation - - Inhaled Oxygen Concentration - - Weight 108 kg (237 lb 10.5 oz) 05/05/2023 7:52 A M FENCE MAKER Height 170.4 cm (5' 7.09) 05/05/2023 7:52 AM CS T Body Mass Index 37.13 05/05/2023 7:52 AM FENCE MAKER documented in this encounter Progress Notes * Oly Mendez M.S., RDN, LD - 05/05/2023 8:00 AM CST CHIEF COMPLAINT/REASON FOR VISIT Home Enteral Nutrition Post-feeding tube placement HISTORY OF PRESENT ILLNESS Mr. 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 G-tube placement on Thursday05/04/23. Recent hospitalization or ED visit: none The following portions of the patient's history were reviewed and updated as appropriate: allergies, current medications, family history, medical history, social history, surgical history, and problem list. Met with patient and spouse (Eva) ASSESSMENT Relevant Social and Family History Resides in [place]. Receiving treatment in [place]. Medical Tests and Procedures/Biochemical Data VFSS (03/09/23): Normal oropharyngeal swallow. Pertinent Labs Reviewed Nutrition Focused Physical Findings Mouth/Espohagus/Throat: Pain is biggest barrier to getting in enough of any kind of nutrition and hydration, also has mouth sores. Also notes it's been more difficult to actually swallow Nausea/Vomiting: No vomiting, has had some nausea, did have some hiccups with giving the tube feeding Bowels: Constipation Hydration: Receiving IV fluids x2 last week, x2 so far Tube Information Feeding tube type/ tip location: 16 Tristanian G- tube Avanos placed on 05/04/23 Suggested feeding tube replacement date: 3 to 5 months (08/03/23-10/03/23) Food/Nutrient Related History Oral intake: Still takes sips of fluid Enteral intake: Starting today Weight History UBW: 120 kg (patient reported) 03/05/23: 119 kg 03/13/23: 122 kg (start of radiation) 04/15/23: 117 kg 05/01/23: 111 kg (home: 108.7 kg) 05/05/23 : 108 kg Estimated body mass index is 37.13 kg/m?? as calculated from the following: Height as of this encounter: 170.4 cm. Weight as of this encounter: 108 kg. Estimation of Nutritional Needs Calories: 2838-9992 kcals/day ([place] Jeor - x1.39 activity factor given suspected elevated caloric needs) Protein: 89-111 grams/day (0.8-1 gram/kg) Fluid: 2250 mL/day (20 mL/kg) Assessment Summary Tad is starting tube feeing today, a half carton was given in clinic and this was well tolerated. Discussed labs and refeeding protocol, tube feeding advancement schedule. NUTRITION DIAGNOSIS Inadequate oral energy intake related to side effect of treatment as evidenced by need for enteral nutrition support. Nutrition Prescription/Recommendation Formula Type: 4 cartons Boost [facility] daily Infusion Schedule: 2-1-1 or 1-1-1-1 Water Flushes: 120 mL before and after feeds Other Flushes: Additional 800-1000 mL daily (26-32 oz) Day 1: 1/2 carton TID Day 2: 1 carton BID Do not advance until labs reviewed by HEN provider. At goal, this will provide a total of: 2120 calories/day, 88 g protein/day, and 635 mL of free water/day Water flushes will provide extra fluid. Oral Program: For therapeutic purposes only INTERVENTION Education - Tube feeding, hydration needs, gravity method of feeding. Patient able to teach and demonstrate back. Care Coordination Authorization on file to speak with DME/Infusion Company: yes DME/Infusion Company that will provide needed supplies for home: [employer]. Indication for Ongoing Enteral Nutrition #1 Malignant Neoplasm Of Tonsil (HCC) #2 Gastrostomy Status (HCC) Anticipated duration of tube feedings is 3-6 month. This is the sole source of nutrition. MONITORING AND EVALUATION Nutrition parameter to monitor: Weight Desired Outcome: Weight maintenance at this time. Slow appropriate weight loss may be appropriate in the future Patient Goal(s): 1. Start enteral feeds as discussed Follow-up Plan Patient is followed in [facility] at [facility]: RD will call to ensure patient is at goal tubefeeding in 1-2 weeks. Time spent with patient (minutes): 45 E MAKER documented in this encounter Plan of Treatment Upcoming Encounters Date Type Department Care Team (Late st Contact Info) Description 05/07/2023 8:00 AM FENCE MAKER Appointment Department of Radiation Oncology in [place], [place] [address] [place] [phone] Lauren Hernandez M.D. [address] [place] [phone] 05/07/2023 10:00 AM FENCE MAKER Virtual Visit Division of Endocrinology in [place], [place] [address] [place] [phone] Kendra Tinsley APRN, C.N.P. [address] [place] [phone] 05/08/2023 8:00 AM FENCE MAKER Appointment Department of Radiation Oncology in [place], [place] [address] [place] [phone] Lauren Hernandez M.D. [address] [place] [phone] 05/11/2023 8:15 AM FENCE MAKER Appointment Department of Radiation Oncology in [place], [place] [address] [place] [phone] Lauren Hernandez M.D. [address] [place] [phone] Scheduled Referrals Name Type Priority Associated Diagnoses Order Schedule [facility] - Home enteral medical nutrition therapy consult (clinic) Outpatient Referral Routine Gastrostomy Status (HCC) Expected: 05/05/2023, Expires: 08/03/2024 documented as of this encounter Results * IR Gastrostomy Tube Check (05/05/2023 10:36 AM FENCE MAKER) Anatomical Region Laterality Modality Abdomen, Vascular Interventi onal RST LOS, Vascular Interventional FLA LOS N/A X-Ray Angiography Impressions 05/05/2023 11:03 AM FENCE MAKER Appropriate position and function of the 16 Tristanian gastrostomy tube placed yesterday. No leakage of contrast into the peritoneal cavity. No definitive fluoroscopic explanation for the patient's abdominal pain. EP Narrative 05/05/2023 11:03 AM FENCE MAKER EXAM: IR GASTROSTOMY TUBE CHECK CLINICAL HISTORY: 68-year-old male with abdominal pain after G-tube placement yesterday. Presents for G-tube check. TECHNIQUE: The patient was positioned supine on the fluoroscopy table. Commutator Undercutter image of the abdomen demonstrates contrast in [...] patient was positioned supine on the fluoroscopy table.Commutator Undercutter image of the abdomen demonstrates contrast in [...] Appropriate position and function of the 16 Tristanian gastrostomy tube placedyesterday. No leakage of contrast into the peritoneal cavity. Nodefinitive fluoroscopic explanation for the patient's abdominal pain. EP Kelly Peter APRN, C.N.P., D.N.P. IMG I R PROCEDURES documented in this encounter Visit Diagnoses Diagnosis Gastrostomy Status (HCC)- Primary Malignant Neoplasm Of Tonsil (HCC) Gastrostomy Status (HCC) documented in this encounter
--- OUTSIDE RECORDS SUMMARY | 2023-05-06 10:43 | XMS_ITS | Referral Summary ---
Author Name Unknown Organization [facility] Address [address] [place] [address] Care Team Providers Care Allergist/Immunologist Physician Name Role Phone Unavailable Primary Care Provider Unavailabl e Source Comments Patient records contain information from all sites at [facility]. For routine questions regarding patient records, call [phone] during business hours, M-F 8:00 AM - 5:00 PM Central Time. Record requests for emergency care only can be directed to [phone] at any time.[facility] Encounters Date Type Department Care Team Description 05/06/2023 7:52 AM [facility] Hospital Encounter Department of Radiation Oncology in [address] [place] [address] Lauren Hernandez M.D. 05/05/2023 9:20 AM [facility] - 05/05/2023 10:57 AM [facility] Hospital Encounter Department of Radiology in [place], [place] [address] [place] [phone] Kelly Peter APRN, C.N.P., D.N.P. Carlito Chaudhry M.D. Andrea Perry M.D. Gastrostomy Status (HCC) Discharge Disposition: Home or Self Care 05/05/2023 Documentation Division of General Internal Medicine in [place], [place] [address] [place] [address] Kaylene Montoya, D., R.Ph. 05/05/2023 8:00 AM [facility] Clinical Support Department of Nutrition and Diabetes Education in [place], [place] [address] [place] [address] Lauren Hernandez M.D. Tanvi Zarate RDN, LD Oly Mendez M.S., LLOYDN, LD Gastrostomy Status (HCC) (Primary Dx); Malignant Neoplasm Of Tonsil (HCC) 05/05/2023 10:00 AM [facility] Clinical Support Division of Endocrinology in [place], [place] [address] [place] [address] Lauren Hernandez M.D. Giesen, Samantha M, RFcoN. Malignant Neoplasm Of Tonsil (HCC) 05/05/2023 1:00 PM [facility] - 05/05/2023 1:14 PM [facility] Hospital Encounter Department of Radiation Oncology in [address] [address] Lauren Hernandez M.D. Malignant Neoplasm Of Oropharynx (HCC) 05/05/2023 1:15 PM [facility] Hospital Encounter Department of Radiation Oncology in [address] [address] Lauren Hernandez M.D. 05/04/2023 12:38 PM [facility] Anesthesia Event Department of Radiology in [address] [address] Jayy Dimas APRN, AITCHBONE BREAKER, DNAP Michelet Adhikari APRN, CRNA, DNAP 05/04/2023 10:57 AM [facility] - 05/04/2023 3:48 PM [facility] Hospital Encounter Department of Radiology in [address] [address] Lauren Hernandez M.D. Jundt, Michael C, M.D. Huls, Sean J, M.D. Malignant Neoplasm Of Tonsil (HCC) Discharge Disposition: Home or Self Care 05/04/2023 7:50 AM [facility] Hospital Encounter Department of Radiation Oncology in [address] [address] Lauren Hernandez M.D. 05/01/2023 2:00 PM [facility] Comprehensive Visit Division of Endocrinology in [place], [place] [address] [place] [phone] Lauren Hernandez M.D. Hagenbrock, Martha C, APRN C.N.P. Dietary Counseling And Surveillance For Enteral Nutrition (Primary Dx); Malignant Neoplasm Of Tonsil (HCC) 05/01/2023 1:00 PM [facility] Clinical Support Division of Endocrinology in [place], [place] [address] [place] [address] Lauren Hernandez M.D. Giesen, Samantha M, R.N. Malignant Neoplasm Of Tonsil (HCC) 05/01/2023 11:00 AM [facility] Clinical Support Department of Nutrition and Diabetes Education in [place], [place] [address] [place] [phone] Lauren Hernandez M.D. Olson, Danelle A, M.SFco, RDN, LD Malignant Neoplasm Of Oropharynx (HCC) (Primary Dx); Malignant Neoplasm Of Tonsil (HCC); Dysphagia Oropharyngeal Phase; Dietary Counseling And Surveillance For Enteral Nutrition; Gastrostomy Status (HCC) 05/01/2023 7:46 AM [facility] Hospital Encounter Department of Radiation Oncology in [address] [address] Lauren Hernandez M.D. 04/30/2023 Clinical Communication Division of General Internal Medicine in [place], [place] [address] [place] [address] Jihan Rivas, R.N. 04/30/2023 Clinical Communication Department of Radiation Oncology in [address] [address] Ramandeep Sanz, R.N. 04/30/2023 7:50 AM [facility] Hospital Encounter Department of Radiation Oncology in [address] [address] Lauren Hernandez M.D. 04/29/2023 Clinical Communication Department of Radiology in [place], [place] [address] [place] [address] Tony Lujan R.N. Procedure (G tube placement) 04/29/2023 Documentation Division of General Internal Medicine in [place], [place] [address] [place] [address] Jihan Rivas R.N. Scheduling 04/29/2023 Clinical Communication Division of Endocrinology in [place], [place] [address] [place] [address] Provider, Unknown 04/29/2023 7:47 AM [facility] - 04/29/2023 12:51 PM [facility] Hospital Encounter Department of Radiation Oncology in [address] [address] Lauren Hernandez M.D. Malignant Neoplasm Of Tonsil (HCC) (Primary Dx); Malignant Neoplasm Of Oropharynx (HCC) 04/29/2023 7:47 AM [facility] Hospital Encounter Department of Radiation Oncology in [address] [address] Lauren Hernandez M.D. 04/28/2023 7:53 AM [facility] Hospital Encounter Department of Radiation Oncology in [address] [address] Lauren Hernandez M.D. 04/24/2023 7:54 AM [facility] Hospital Encounter Department of Radiation Oncology in [address] [address] Lauren Hernandez M.D. 04/23/2023 8:09 AM [facility] Hospital Encounter Department of Radiation Oncology in [address] [address] Ashlee Go APRN, C.N.P., D.N.P. Poly Gill LD Malignant Neoplasm Of Oropharynx (HCC) 04/23/2023 2:48 PM [facility] Hospital Encounter Department of Radiation Oncology in [address] [address] Lauren Hernandez M.D. 04/23/2023 7:47 AM [facility] Hospital Encounter Department of Radiation Oncology in [address] [address] Lauren Hernandez M.D. 04/22/2023 7:49 AM [facility] - 04/22/2023 9:25 AM [facility] Hospital Encounter Department of Radiation Oncology in [address] [address] Lauren Hernandez M.D. Leenstra, James L, M.D. Malignant Neoplasm Of Oropharynx (HCC) 04/22/2023 7:49 AM [facility] Hospital Encounter Department of Radiation Oncology in [address] [address] Lauren Hernandez M.D. 04/21/2023 8:36 AM [facility] Hospital Encounter Department of Radiation Oncology in [address] [address] Lauren Hernandez M.D. 04/17/2023 Orders Only Department of Radiation Oncology in [address] [address] Lauren Hernandez M.D. 04/17/2023 8:18 AM [facility] Hospital Encounter Department of Radiation Oncology in [address] [address] Lauren Hernandez M.D. 04/16/2023 8:16 AM [facility] Hospital Encounter Department of Radiation Oncology in [address] [address] Lauren Hernandez M.D. 04/15/2023 8:20 AM [facility] - 04/15/2023 8:31 AM [facility] Hospital Encounter Department of Radiation Oncology in [address] [address] Lauren Hernandez M.D. Malignant Neoplasm Of Oropharynx (HCC) 04/15/2023 8:32 AM [facility] Hospital Encounter Department of Radiation Oncology in [address] [address] Lauren Hernandez M.D. 04/14/2023 Clinical Communication Department of Radiation Oncology in [address] [address] Lauren Hernandez M.D. 04/14/2023 8:26 AM [facility] Hospital Encounter Department of Radiation Oncology in [address] [address] Lauren Hernandez M.D. 04/13/2023 9:12 AM [facility] Hospital Encounter Department of Radiation Oncology in [address] [address] Lauren Hernandez M.D. 04/10/2023 8:45 AM [facility] Hospital Encounter Department of Radiation Oncology in [address] [address] Lauren Hernandez M.D. 04/09/2023 8:03 AM [facility] Hospital Encounter Department of Radiation Oncology in [address] [address] Ashlee Go APRN, C.N.P., D.N.PPoly Mcginnis LD Malignant Neoplasm Of Oropharynx (HCC) 04/09/2023 8:02 AM [facility] Hospital Encounter Department of Radiation Oncology in [address] [address] Lauren Hernandez M.D. 04/08/2023 8:01 AM [facility] Hospital Encounter Department of Radiation Oncology in [address] [place] [address] Lauren Hernandez M.D. 04/07/2023 7:51 AM [facility] - 04/07/2023 3:25 PM [facility] Hospital Encounter Department of Radiation Oncology in [address] [address] Lauren Hernandez M.D. Malignant Neoplasm Of Oropharynx (HCC) 04/07/2023 7:50 AM [facility] Hospital Encounter Department of Radiation Oncology in [address] [address] Lauren Hernandez M.D. 04/06/2023 11:37 AM [facility] Hospital Encounter Department of Radiation Oncology in [address] [address] Lauren Hernandez M.D. 04/03/2023 9:53 AM [facility] - 04/03/2023 11:57 AM [facility] Hospital Encounter Department of Radiation Oncology in [address] [address] Lauren Hernandez M.D. Grieman, Kari A, RFcoNFco Malignant Neoplasm Of Oropharynx (HCC) Discharge Disposition: Home or Self Care 04/03/2023 9:53 AM [facility] - 04/03/2023 11:59 PM [facility] Hospital Encounter Department of Radiation Oncology in [address] [address] Lauren Hernandez M.D. Discharge Disposition: Home or Self Care 04/02/2023 7:49 AM [facility] - 04/02/2023 3:59 PM [facility] Hospital Encounter Department of Radiation Oncology in [address] [address] Lauren Hernandez M.D. Malignant Neoplasm Of Oropharynx (HCC) 04/02/2023 7:49 AM [facility] - 04/02/2023 11:59 PM [facility] Hospital Encounter Department of Radiation Oncology in [address] [address] Lauren Hernandez M.D. Discharge Disposition: Home or Self Care 04/01/2023 7:47 AM [facility] - 04/01/2023 11:59 PM [facility] Hospital Encounter Department of Radiation Oncology in [address] [address] Lauren Hernandez M.D. Discharge Disposition: Home or Self Care 03/31/2023 7:50 AM [facility] - 03/31/2023 11:59 PM [facility] Hospital Encounter Department of Radiation Oncology in [address] [address] Lauren Hernandez M.D. Discharge Disposition: Home or Self Care 03/30/2023 7:46 AM [facility] - 03/30/2023 11:59 PM [facility] Hospital Encounter Department of Radiation Oncology in [address] [address] Lauren Hernandez M.D. Discharge Disposition: Home or Self Care 03/27/2023 8:04 AM [facility] - 03/27/2023 11:59 PM [facility] Hospital Encounter Department of Radiation Oncology in [address] [address] Lauren Hernandez M.D. Discharge Disposition: Home or Self Care 03/26/2023 8:26 AM [facility] - 03/26/2023 11:59 PM [facility] Hospital Encounter Department of Radiation Oncology in [address] [address] Ashlee Go, AUTOMOBILE MECHANIC APPRENTICE, C.N.P., D.N.P. Yolis Eric, RDN Malignant Neoplasm Of Oropharynx (HCC) Discharge Disposition: Home or Self Care 03/26/2023 8:25 AM [facility] Hospital Encounter Department of Radiation Oncology in [address] [address] Lauren Hernandez M.D. Malignant Neoplasm Of Tonsil (HCC) (Primary Dx); Malignant Neoplasm Of Oropharynx (HCC) 03/26/2023 8:24 AM [facility] Hospital Encounter Department of Radiation Oncology in [address] [address] Lauren Hernandez M.D. Discharge Disposition: Home or Self Care 03/25/2023 9:26 AM [facility] - 03/25/2023 11:59 PM [facility] Hospital Encounter Department of Radiation Oncology in [address] [address] Lauren Hernandez M.D. Discharge Disposition: Home or Self Care 03/24/2023 8:12 AM [facility] - 03/24/2023 11:59 PM [facility] Hospital Encounter Department of Radiation Oncology in [address] [address] Lauren Hernandez M.D. Discharge Disposition: Home or Self Care 03/23/2023 3:05 PM [facility] - 03/23/2023 11:59 PM [facility] Hospital Encounter Department of Radiation Oncology in [address] [address] Lauren Hernandez M.D. Discharge Disposition: Home or Self Care 03/13/2023 2:07 PM [facility] - 03/14/2023 6:30 AM [facility] Hospital Encounter Department of Radiation Oncology in [address] [address] Lauren Hernandez M.D. Malignant Neoplasm Of Oropharynx (HCC) 03/13/2023 Clinical Communication Department of Dental Specialties in [place], [place] [address] [place] [phone] Joe Moseley B.D.S. 03/13/2023 11:30 AM [facility] Clinical Support Department of Dental Specialties in [place], [place] [address] [place] [address] Joe Moseley B.D.S. Malignant Neoplasm Of Oropharynx (HCC) (Primary Dx); Malignant Neoplasm Of Tonsil (HCC); Secondary Malignant Neoplasm Lymph Node (HCC) 03/13/2023 2:00 PM [facility] - 03/13/2023 2:06 PM [facility] Hospital Encounter Department of Radiation Oncology in [address] [address] Lauren Hernandez M.D. Grieman, Kari A, R.N. Malignant Neoplasm Of Tonsil (HCC) (Primary Dx) 03/13/2023 12:20 PM [facility] - 03/13/2023 1:59 PM [facility] Hospital Encounter Department of Radiation Oncology in [address] [address] Lauren Hernandez M.D. Malignant Neoplasm Of Tonsil (HCC) (Primary Dx); Malignant Neoplasm Of Oropharynx (HCC); Secondary Malignant Neoplasm Lymph Node Neck (HCC) 03/12/2023 Orders Only Department of Radiation Oncology in [place], [place] [address] [place] [address] Leesa Zamora Malignant Neoplasm Of Oropharynx (HCC) (Primary Dx) 03/12/2023 Orders Only Department of Radiation Oncology in [address] [address] Terri Crowe P.A.-C., M.S. Malignant Neoplasm Of Oropharynx (HCC) (Primary Dx) 03/12/2023 Orders Only Department of Radiation Oncology in [address] [address] Ashlee Go APRN, C.N.P., D.N.P. Malignant Neoplasm Of Oropharynx (HCC) (Primary Dx) 03/12/2023 Orders Only Department of Oncology in [place], [place] [address] [place] [address] Ana Quinonez, R.N. Malignant Neoplasm Of Oropharynx (HCC) (Primary Dx) 03/10/2023 Orders Only Department of Oncology in [place], [place] [address] [place] [phone] Ana Quinonez R.N. Malignant Neoplasm Of Oropharynx (HCC) (Primary Dx) 03/10/2023 4:00 PM [facility] Comprehensive Visit Department of Dental Specialties in [place], [place] [address] [place] [phone] Joe Moseley B.D.S. Malignant Neoplasm Of Oropharynx (HCC); Secondary Malignant Neoplasm Lymph Node (HCC) 03/09/2023 Orders Only Department of Radiation Oncology in [place], [place] [address] [place] [phone] Brandon Yeboah Mass Tonsil (Primary Dx) 03/09/2023 10:34 AM [facility] - 03/09/2023 11:59 PM [facility] [place] [place] [address] [place] [phone] David Soto M.D. Riggs, Mallory L, M.S., CCC-RESPIRATORY THERAPIST ASSISTANT Malignant Neoplasm Of Oropharynx (HCC); Secondary Malignant Neoplasm Lymph Node (HCC) Discharge Disposition: Home or Self Care 03/09/2023 10:30 AM [facility] Comprehensive Visit Department of Neurology in [place], [place] [address] [place] [phone] David Soto M.D. Riggs, Mallory L, M.S., CCC-RESPIRATORY THERAPIST ASSISTANT Dysphagia Oropharyngeal Phase (Primary Dx); Malignant Neoplasm Of Oropharynx (HCC); Secondary Malignant Neoplasm Lymph Node (HCC) 03/09/2023 1:30 PM [facility] Office Visit Department of Otorhinolaryngology in [place], [place] [address] [place] [phone] David Soto M.D. Malignant Neoplasm Of Tonsil (HCC) (Primary Dx); Secondary Malignant Neoplasm Lymph Node (HCC) 03/05/2023 8:10 AM [facility] - 03/06/2023 11:34 AM [facility] Hospital Encounter Department of Radiology, [facility] in [place], [place] [address] [place] [phone] David Soto M.D. Mass Neck; Mass Tonsil Discharge Disposition: Home or Self Care 03/05/2023 10:55 AM [facility] Ancillary Procedure Department of Otorhinolaryngology 03/05/2023 12:18 PM [facility] - 03/05/2023 1:35 PM [facility] Hospital Encounter Department of Radiation Oncology in [address] [address] Parvez Byrd M.D. Malignant Neoplasm Of Tonsil (HCC) (Primary Dx); Mass Tonsil; Mass Neck 03/05/2023 9:45 AM [facility] Comprehensive Visit Department of Otorhinolaryngology in [address] [address] David Soto M.D. Malignant Neoplasm Of Oropharynx (HCC); Secondary Malignant Neoplasm Lymph Node (HCC) 03/02/2023 5:54 AM [facility] - 03/02/2023 11:59 PM [facility] Hospital Encounter Department of Radiology, [facility], in [address] [address] David Soto M.D. Mass Neck; Mass Tonsil Discharge Disposition: Home or Self Care 02/27/2023 10:00 AM CDT Clinical Communication Virtual Review in [address] [address] Previsit Preparation 02/26/2023 10:06 AM CDT - 02/26/2023 11:59 PM CDT Hospital Encounter Department of Radiology, [facility], in [address] [address] David Soto M.D. Mass Neck; Mass Tonsil Discharge Disposition: Home or Self Care 02/25/2023 Clinical Communication Department of Otorhinolaryngology in [address] [address] David Soto M.D. OSM Request 02/24/2023 Orders Only Department of Otorhinolaryngology in [address] [address] Marlyn Santillan R.N. Mass Tonsil (Primary Dx); Mass Neck 02/23/2023 Clinical Communication Department of Otorhinolaryngology in [place], [place] [address] [place] [address] Prescheduling, Provider Appt Question 02/23/2023 Clinical Communication Department of Otorhinolaryngology in [place], [place] [address] [place] [address] Prescheduling, Provider Referral 02/20/2023 Clinical Communication Department of Otorhinolaryngology in [place], [place] [address] [place] [address] Prescheduling, Provider Referral 02/18/2023 Orders Only Department of Otorhinolaryngology in [place], [place] [address] [place] [address] Marlyn Santillan R.N. Mass Neck (Primary Dx); Mass Tonsil 02/17/2023 [facility] [address] [place] [address] Toi Yap M.D. Other Diseases Of Pharynx (Primary Dx); Localized Enlarged Lymph Nodes from Last 3 Months Allergies No known active allergies Medications Medication [...] 03/05/2023:Stage I(cT2, cN1, cM0, p16+) - Unsigned Social History Tobacco Use Types Packs/Day Years [...] your living situation today? I have a [facility] place to live 03/01/2023 Sex and Gender Information Value Date Recorded Sex Assigned at Male 03/01/2023 1:25 PM [facility] Gender Identity Male 03/01/2023 1:25 PM [facility] Sexual Orientation Not on file Last Filed Vital Signs Vital Sign Reading Time Taken Comments Blood Pressure 130/74 05/05/2023 2:38 PM [facility] Pulse 71 05/05/2023 2:38 PM [facility] Temperature 36.5 ??C (97.7 ??F) 05/05/2023 2:38 PM CS T Respiratory Rate 18 05/05/2023 10:46 AM [facility] Oxygen Saturation 96% 05/05/2023 10:46 AM [facility] Inhaled Oxygen Concentration - - Weight 108 kg (237 lb 10.5 oz) 05/05/2023 2:38 P M [facility] Height 170.4 cm (5' 7.09) 05/05/2023 7:52 AM CS T Body Mass Index 37.13 05/05/2023 7:52 AM [facility] Plan of Treatment Upcoming Encounters Date Type Department Care Team (Late st Contact Info) Description 05/07/2023 8:00 AM [facility] Appointment Department of Radiation Oncology in [address] [address] Lauren Hernandez M.D. [address] [place] [phone] 05/07/2023 10:00 AM [facility] Virtual Visit Division of Endocrinology in [place], [place] [address] [place] [phone] Kendra Tinsley APRN, C.N.P. [address] [place] [phone] 05/08/2023 8:00 AM [facility] Appointment Department of Radiation Oncology in [address] [address] Lauren Hernandez M.D. [address] [place] [phone] 05/11/2023 8:15 AM [facility] Appointment Department of Radiation Oncology in [address] [address] Lauren Hernandez M.D. [address] [place] [phone] Procedures Procedure Name Priority Date/Time Associated Diagnosis Comments ARIA DAILY TREATMENT INFORMATION Routine 05/06/2023 8:12 AM [facility] ARIA DAILY TREATMENT INFORMATION Routine 05/05/2023 2:31 PM [facility] IR GASTROSTOMY TUBE CHECK RAD - Routine (most inpatients and all outpatients) 05/05/2023 10:36 AM [facility] Gastrostomy Status (HCC) IR GASTROSTOMY TUBE PLACEMENT RAD - Routine (most inpatients and all outpatients) 05/04/2023 1:35 PM [facility] Malignant Neoplasm Of Tonsil (HCC) ECG STAT 05/04/2023 11:34 AM [facility] PHOSPHORUS (INORGANIC), S Routine 05/04/2023 9:38 AM [facility] Malignant Neoplasm Of Tonsil (HCC) Dietary Counseling And Surveillance For Enteral Nutrition MAGNESIUM, S Routine 05/04/2023 9:38 AM [facility] Malignant Neoplasm Of Tonsil (HCC) Dietary Counseling And Surveillance For Enteral Nutrition BASIC METABOLIC PANEL, S/P Routine 05/04/2023 9:38 AM [facility]DER Malignant Neoplasm Of Tonsil (HCC) Dietary Counseling And Surveillance For Enteral Nutrition ARIA DAILY TREATMENT INFORMATION Routine 05/04/2023 8:06 AM [facility] M[facility]DER ARIA DAILY TREATMENT INFORMATION Routine 05/01/2023 8:12 AM [facility]DER ARIA DAILY TREATMENT INFORMATION Routine 04/30/2023 8:05 AM [facility]DER ARIA DAILY TREATMENT INFORMATION Routine 04/29/2023 8:22 AM [facility] M[facility]DER ARIA DAILY TREATMENT INFORMATION Routine 04/28/2023 8:14 AM [facility] M[facility]DER ARIA DAILY TREATMENT INFORMATION Routine 04/24/2023 8:06 AM P[facility]ER [facility]OLDER ARIA DAILY TREATMENT INFORMATION Routine 04/23/2023 3:06 PM P[facility]DER ARIA DAILY TREATMENT INFORMATION Routine 04/23/2023 8:07 AM [facility]DER ARIA DAILY TREATMENT INFORMATION Routine 04/22/2023 8:15 AM P[facility]ER M[facility]DER ARIA DAILY TREATMENT INFORMATION Routine 04/21/2023 9:10 AM [facility]DER ARIA DAILY TREATMENT INFORMATION Routine 04/17/2023 8:52 AM [facility]DER ARIA DAILY TREATMENT INFORMATION Routine 04/16/2023 8:56 AM [facility]ER MOLDER ARIA DAILY TREATMENT INFORMATION Routine 04/15/2023 8:44 AM P[facility]ER MOLDER ARIA DAILY TREATMENT INFORMATION Routine 04/14/2023 8:43 AM [facility]ER MOLDER ARIA DAILY TREATMENT INFORMATION Routine 04/13/2023 9:22 AM P[facility]ER MOLDER ARIA DAILY TREATMENT INFORMATION Routine 04/10/2023 9:08 AM P[facility]ER MOLDER ARIA DAILY TREATMENT INFORMATION Routine 04/09/2023 8:46 AM PLASTER MOLDER ARIA DAILY TREATMENT INFORMATION Routine 04/08/2023 8:18 AM PLASTER MOLDER ARIA DAILY TREATMENT INFORMATION Routine 04/07/2023 8:19 AM PLASTER MOLDER ARIA DAILY TREATMENT INFORMATION Routine 04/06/2023 12:07 PM PLASTER MOLDER ARIA DAILY TREATMENT INFORMATION Routine 04/03/2023 10:37 AM PLASTER MOLDER ARIA DAILY TREATMENT INFORMATION Routine 04/02/2023 8:28 AM PLASTER MOLDER ARIA DAILY TREATMENT INFORMATION Routine 04/01/2023 8:07 AM PLASTER MOLDER ARIA DAILY TREATMENT INFORMATION Routine 03/31/2023 8:33 AM PLASTER MOLDER ARIA DAILY TREATMENT INFORMATION Routine 03/30/2023 8:15 AM PLASTER MOLDER ARIA DAILY TREATMENT INFORMATION Routine 03/27/2023 8:47 AM PLASTER MOLDER ARIA DAILY TREATMENT INFORMATION Routine 03/26/2023 8:52 AM PLASTER MOLDER ARIA DAILY TREATMENT INFORMATION Routine 03/25/2023 9:57 AM PLASTER MOLDER ARIA DAILY TREATMENT INFORMATION Routine 03/24/2023 8:46 AM PLASTER MOLDER ARIA DAILY TREATMENT INFORMATION Routine 03/23/2023 3:29 PM PLASTER MOLDER INITIAL RAD ONC TREATMENT PLANNING CT SIMULATION Routine 03/13/2023 2:15 PM P[facility]ER MOLDER Malignant Neoplasm Of Oropharynx (HCC) AL FLUORIDE APPL TRAYS UPPER & LOWER Routine 03/13/2023 11:30 AM P[facility]ER MOLDER Malignant Neoplasm Of Oropharynx (HCC) 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) DENTAL LAB Routine 03/11/2023 MEDICAL PANOREX Routine 03/10/2023 5:56 PM [facility]ER M[facility]DER 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) FL SWALLOW FUNCTION WITH VIDEO AND SPEECH OR OT FOR RST RAD - Routine (most inpatients and all outpatients) 03/09/2023 10:50 AM PLASTER MOLDER 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) OTORHINOLARYNGOLOGY IMAGE EXAM Routine 03/05/2023 10:11 AM PLASTER MOLDER US LYMPH NODE BIOPSY RAD - Routine (most inpatients and all outpatients) 03/05/2023 8:46 AM PLASTER MOLDER [place] CYTOLOGY FINE NEEDLE ASPIRATION (INCLUDES CORE BIOPSIES Timed 03/05/2023 8:26 AM PLASTER MOLDER MAGNESIUM, S Routine 03/02/2023 8:11 AM PLASTER MOLDER [place] CBC WITH DIFFERENTIAL, B Routine 023 8:11 AM PLASTER MOLDER [place] BILIRUBIN DIRECT, S/P Routine 03/02/2023 8:11 AM PLASTER MOLDER [place] COMPREHENSIVE METABOLIC PANEL, S/P Routine 03/02/2023 8:11 AM PLASTER MOLDER [place] PET CT SKULL TO THIGH RAD - Routine (most inpatients and all outpatients) 03/02/2023 8:00 AM PLASTER MOLDER [place] US THYROID RAD - Routine (most inpatients and all outpatients) 02/26/2023 11:20 AM CDT [place] OUTSIDE CT NEURO Routine 02/12/2023 8:40 AM CDT from Last 3 Months Results * Aria Daily Treatment Information (05/06/2023 8:12 AM PLASTER MOLDER) Only the most recent of32 resultswithin the time period is included. Course ID [id number] LÓPEZ ARIA Course Start Date 3 12:01 PLASTER MOLDER LÓPEZ ARIA First Treatment Date 3 15:24 PLASTER MOLDER LÓPEZ ARIA Last Treatment Date 4 08:12 PLASTER MOLDER LÓPEZ ARIA Treatment Elapsed Days 44 LÓPEZ ARIA Reference Point [id number] LÓPEZ ARIA Dosage Given to Date cGy 6400 LÓPEZ ARIA Session Dosage Given 200 LÓPEZ ARIA Plan ID [id number] LÓPEZ ARIA Fractions Treated to Date 32 LÓPEZ ARIA Planned Total Fractions 35 LÓPEZ ARIA Prescribed Dose Per Fraction 200 LÓPEZ ARIA Prescription Dose in cGy 7000 LÓPEZ ARIA Plan Primary Reference Point [id number] LÓPEZ ARIA 05/06/2023 8:12 AM PLASTER MOLDER Provider Not In System RADIATION ONCOLOG Y ORDERABLES RENE LUQUE na * IR Gastrostomy Tube Check (05/05/2023 10:36 AM PLASTER MOLDER) Anatomical Region Laterality Modality Abdomen, Vascular Interventi onal RST LOS, Vascular Interventional FLA LOS N/A X-Ray Angiography Impressions 05/05/2023 11:03 AM PLASTER MOLDER Appropriate position and function of the 16 Ethiopian gastrostomy tube placed yesterday. No leakage of contrast into the peritoneal cavity. No definitive fluoroscopic explanation for the patient's abdominal pain. EP Narrative 05/05/2023 11:03 AM PLASTER MOLDER EXAM: IR GASTROSTOMY TUBE CHECK CLINICAL HISTORY: 68-year-old male with abdominal pain after G-tube placement yesterday. Presents for G-tube check. TECHNIQUE: The patient was positioned supine on the fluoroscopy table. Flagsetter image of the abdomen demonstrates contrast in [...] patient was positioned supine on the fluoroscopy table.Flagsetter image of the abdomen demonstrates contrast in [...] Appropriate position and function of the 16 Ethiopian gastrostomy tube placedyesterday. No leakage of contrast into the peritoneal cavity. Nodefinitive fluoroscopic explanation for the patient's abdominal pain. EP Kelly Peter APRN C.N.P., D.N.P. IMG I R PROCEDURES * IR Gastrostomy Tube Placement (05/04/2023 1:35 PM PLASTER MOLDER) Anatomical Region Laterality Modality Abdomen, Vascular Interventi onal RST LOS, Vascular Interventional ARZ LOS, Vascular Interventional FLA LOS N/A X-Ray Angiography Impressions 05/04/2023 2:06 PM PLASTER MOLDER Placement of a 16 Ethiopian percutaneous gastrostomy tube. Nothing by mouth or tube for 2 hours (strict). Then use of mouth or tube for water, medications, and/or tube feeds per Nutrition note/order. Exchange tube in 3-5 months. Contact the [facility] clinic at [phone] to schedule the tube exchange. 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 Pre-Procedure Diagnosis: Cancer. Indication: Feeding. TECHNIQUE: The patient was placed supine on the fluoroscopy table. Under fluoroscopic guidance, a 4 Ethiopian catheter was placed as a nasogastric tube. [...] confirmed with a small contrast injection. 4 Ethiopian catheter and Glidewire were advanced into the [...] applied. No immediate complication. Tube Type: Gastrostomy, [place]. Tube Connection: ENFit. Tube Size: 16 Ethiopian. Low Profile: No. Disc Height: 5 cm. [...] the fluoroscopy table. Underfluoroscopic guidance, a 4 Ethiopian catheter was placed as a nasogastrictube. The [...] confirmed with a small contrast injection. 4 Ethiopian catheter andGlidewire were advanced into the duodenum [...] applied. No immediate complication. Tube Type: Gastrostomy, [place]. Tube Connection: ENFit. Tube Size: 16 Ethiopian. Low Profile: No. Disc Height: 5 cm. [...] by Anesthesiology. IMPRESSION: Placement of a 16 Ethiopian percutaneous gastrostomy tube. Nothing by mouthor tube for 2 hours (strict). Then use of mouth or tube for water,medications, and/or tube feeds per Nutrition note/order. Exchange tube in3-5 months. Contact the [facility] clinic at [phone] to schedule the tube exchange. EP Lauren Hernandez M.D. IMG IR PROCEDURES * ECG 12 Lead (05/04/2023 11:34 AM PLASTER MOLDER) Ventricular Rate ECG/Min 62 BPM MUSE AL Interval 174 ms MUSE QRSD Interval 100 ms MUSE QT Interval 420 ms MUSE QTC Interval 426 ms MUSE P [place] 10 degrees MUSE R [place] -9 degrees MUSE T Wave [place] -14 degrees MUSE 05/04/2023 11:3 4 AM PLASTER MOLDER 05/04/2023 11:53 AM PLASTER MOLDER Impressions MUSE - 05/04/2023 11:53 AM PLASTER MOLDER Normal sinus rhythm Normal ECG No previous ECGs available Reviewed by BHAVESH Medina Narrative Procedure Note Edward Mccurdy Jr., M.D. - 05/04/2023 IMPRESSION: Normal sinus rhythm Normal ECG No previous ECGs available Reviewed by BHAVESH Medina Carlito Chaudhry M.D. ECG ORDERABLES Performing Organization Address City/[facility]/ZIP Co de Phone Number MUSE NA * Phosphorus Inorganic (05/04/2023 9:38 AM PLASTER MOLDER) Phosphorus (Inorganic), S 3.1 2.5 - 4.5 mg/dL 05/04/2023 11:19 AM PLASTER MOLDER DTL Blood (Blood, Venous) 05/04/2023 9:38 AM PLASTER MOLDER 05/04/2023 10:04 AM PLASTER MOLDER Kendra Tinsley APRN C.N.PFco LAB BLO OD ADD-ON [facility] [address] [place] [address], [place] DTL [facility] [address] [place] [address] * Magnesium (05/04/2023 9:38 AM PLASTER MOLDER) Only the most recent of2 resultswithin the time period is included. Magnesium, S 2.1 1.7 - 2.3 mg/dL 05/04/2023 11:19 AM PLASTER MOLDER DTL Blood (Blood, Venous) 05/04/2023 9:38 AM PLASTER MOLDER 05/04/2023 10:04 AM PLASTER MOLDER Kendra Tinsley APRN C.NFcoPFco LAB BLO OD ADD-ON [facility] [address] [place] [address], [facility] [address] [place] [address] * Basic Metabolic Panel (05/04/2023 9:38 AM PLASTER MOLDER) Potassium, S 4.8 3.6 - 5.2 mmol/L 05/04/2023 11:19 AM PLASTER MOLDER DTL Sodium, S 140 135 - 145 mmol/L 05/04/2023 11:19 AM PLASTER MOLDER DTL Chloride, S 102 98 - 107 mmol/L 05/04/2023 11:19 AM PLASTER MOLDER DTL Bicarbonate, S 26 22 - 29 mmol/L 05/04/2023 11:19 AM PLASTER MOLDER DTL Anion Gap 12 7 - 15 05/04/2023 11:19 AM PLASTER MOLDER DTL BUN (Blood Urea Nitrogen), S 21 8 - 24 mg/dL 05/04/2023 11:19 AM PLASTER MOLDER DTL Creatinine 1.26 0.74 - 1.35 mg/dL 05/04/2023 11:19 AM PLASTER MOLDER DTL Estimated GFR (eGFR) 63 >=60 mL/min/BSA 05/04/2023 11:19 AM PLASTER MOLDER DTL Comment: Estimated GFR calculated using the 2020 CKD_EPI creatinine equation. Calcium, Total, S 9.7 8.8 - 10.2 mg/dL 05/04/2023 11:19 AM PLASTER MOLDER DTL Glucose, S 94 70 - 140 mg/dL 05/04/2023 11:19 AM PLASTER MOLDER DTL Blood (Blood, Venous) 05/04/2023 9:38 AM PLASTER MOLDER 05/04/2023 10:04 AM PLASTER MOLDER Kendra Tinsley APRN, C.N.P. LAB BLO OD ADD-ON Performing Organization Address City/[facility] Co de Phone Number [facility] [address] [place] [address], [facility] DTL [facility] [address] [place] [address] * Initial Rad Onc Treatment Planning CT Simulation (03/13/2023 2:15 PM PLASTER MOLDER) Narrative [facility] - 03/13/2023 2:15 PM PLASTER MOLDER Gregoria Vega, RTT ? 03/13/2023 ??2:39 PM Initial Rad Onc Treatment Planning CT Simulation Performed by: Lauren Hernandez M.D. Authorized by: Lauren Hernandez M.D. ?? Lauren Hernandez M.D. RADIATION ONCOLOG Y ORDERABLES Performing Organization Address City/[facility] Co de Phone Number VEYO ENE na * Dental Lab (03/11/2023) Narrative Bhavna Engel - 03/11/2023 Poured and trimmed by Renetta Narvaez C.D.T. Fluoride carriers by Radha Engel Joe Moseley B.D.S. DENTAL ORDE [facility] * [facility] (03/10/2023 5:56 PM PLASTER MOLDER) Narrative Joe Moseley B.D.S. - 03/10/2023 5:56 PM PLASTER MOLDER Panoramic radiograph taken and reviewed. Image(s) revealed [...] shows implants in sites # 19 #30 Joe Moseley B.D.S. DENTAL [facility]ULLER * FL Swallow Function with Video and Speech or OT (03/09/2023 10:50 AM PLASTER MOLDER) Anatomical Region Laterality Modality Gastro Intestinal, Abdominal RST LOS, Abdominal ARZ LOS, Abdominal FLA LOS N/A Digital Radiography 03/09/2023 10:4 6 AM PLASTER MOLDER Impressions 03/09/2023 10:53 AM PLASTER MOLDER 1. Negative video swallowing study. Narrative 03/09/2023 10:53 AM PLASTER MOLDER EXAM: FL SWALLOW FUNCTION WITH VIDEO AND [...] Negative video swallowing study. David Soto M.D. IMG FLUOROSCOPY AL OCEDURES * Direct Laryngoscopy-Otorhinolaryngology Image Exam (03/05/2023 10:11 AM PLASTER MOLDER) 03/05/2023 10:5 1 AM PLASTER MOLDER Narrative IIMS - 03/05/2023 10:11 AM PLASTER MOLDER This order has been created and auto-finalized to support the import of images acquired without order. The clinical documentation to support these images can be found on the encounter that produced images. Provider Not In System IMG NON RAD IMAGI NG PROCEDURES [facility]IM[facility] NA * US Lymph Node Biopsy (03/05/2023 8:46 AM PLASTER MOLDER) Anatomical Region Laterality Modality Body, Ultrasound RST LOS, Ul trasound ARZ LOS, Procedure FLA LOS, Abdominal FLA LOS, Procedural N/A Ultrasound 03/05/2023 9:13 AM PLASTER MOLDER Impressions 03/05/2023 9:17 AM PLASTER MOLDER Ultrasound-guided biopsy of an enlarged left neck lymph node. EP Narrative 03/05/2023 9:17 AM PLASTER MOLDER EXAM: US LYMPH NODE BIOPSY PRE-PROCEDURE: Patient [...] neck lymph node. EP David Soto M.D. IMG US PROCEDURES * (ABNORMAL) Cytology Fine Needle Aspiration (including core biopsies) (03/05/2023 8:26 AM PLASTER MOLDER) (A) 3 3:41 PM PLASTER MOLDER DTL Disclaimer Test results for (IHC or RODRÍGUEZ) testing are valid for specimens fixed between 6 and 72 hours. ??Delay to fixation, under fixation or over fixation fall outside of guidelines and may affect these results. (A) 03/06/2023 3:41 PM PLASTER MOLDER DTL Report electronically signed by Deann Cabral M.D. I verify that I have examined all relevant slides/materials for the specimen(s) and rendered or confirmed the diagnosis. (A) 03/06/2023 3:41 PM PLASTER MOLDER DTL Gross Description Received 6 alcohol-fixed smears [...] ??Grossed by AJB. (A) 03/06/2023 3:41 PM PLASTER MOLDER DTL Source A. Lymph node, Left neck, fine needle aspiration(A) 03/06/2023 3:41 PM PLASTER MOLDER DTL Addendum HPV (E6/E7) High Risk RODRÍGUEZ performed on block A1 is positive. This indicates positivity for one or more of the following types: 16, 18, 26, 31, 33, 35, 39, 45, 51, 52, 53, 56, 58, 59, 66, 68, 73, and 82. Signed by Daenn Cabral M.D. 03/09/2023 6:24 PM This test was developed and its performance characteristics determined by [facility] in a manner consistent with CLIA requirements. This test has not been cleared or approved by the U.S. Food and Drug Administration. (A) 03/09/2023 6:24 PM PLASTER MOLDER DTL Comment:REVISED RESULTS Interpretation A. Lymph node, [...] in an addendum. (A) 03/09/2023 6:24 PM PLASTER MOLDER DTL Tissue (Lymph Node) 03/05/2023 8:26 AM PLASTER MOLDER 03/05/2023 9:12 AM PLASTER MOLDER David Soto M.D. LAB SURG PATH JUAN CARLOS FULLER [facility] [address] [place] [address], [facility] DTL [address] [facility] [address] [place] [address] * CBC with Differential, Blood (03/02/2023 8:11 AM PLASTER MOLDER) Hemoglobin 15.5 13.2 - 16.6 g/dL 03/02/2023 9:20 AM PLASTER MOLDER DTL Hematocrit 46.1 38.3 - 48.6 % 03/02/2023 9:20 AM PLASTER MOLDER DTL Erythrocytes 5.02 4.35 - 5.65 x10(12)/L 03/02/2023 9:20 AM PLASTER MOLDER DTL MCV 91.8 78.2 - 97.9 fL 03/02/2023 9:20 AM PLASTER MOLDER DTL RBC Distrib Width 12.9 11.8 - 14.5 % 03/02/2023 9:20 AM PLASTER MOLDER DTL Platelet Count 138 135 - 317 x10(9)/L 03/02/2023 9:20 AM PLASTER MOLDER DTL Leukocytes 5.4 3.4 - 9.6 x10(9)/L 03/02/2023 9:20 AM PLASTER MOLDER DTL Neutrophils 2.31 1.56 - 6.45 x10(9)/L 03/02/2023 9:20 AM PLASTER MOLDER PM Lymphocytes 2.63 0.95 - 3.07 x10(9)/L 03/02/2023 9:20 AM PLASTER MOLDER DTL Monocytes 0.45 0.26 - 0.81 x10(9)/L 03/02/2023 9:20 AM PLASTER MOLDER DTL Eosinophils <0.03 0.03 - 0.48 x10(9)/L 03/02/2023 9:20 AM PLASTER MOLDER DTL Basophils <0.03 0.01 - 0.08 x10(9)/L 03/02/2023 9:20 AM PLASTER MOLDER DTL Blood (Blood, Venous) 03/02/2023 8:11 AM PLASTER MOLDER 03/02/2023 8:35 AM PLASTER MOLDER David Soto M.D. LAB BLOOD ADD-ON [facility] [address] [place] [address], [facility] DTL [facility] [address] [place] [address] * Bilirubin, Direct (03/02/2023 8:11 AM PLASTER MOLDER) Bilirubin, Direct, S <0.2 0.0 - 0.3 mg/dL 03/02/2023 9:21 AM PLASTER MOLDER DTL Blood (Blood, Venous) 03/02/2023 8:11 AM PLASTER MOLDER 03/02/2023 9:04 AM PLASTER MOLDER David Soto M.D. LAB BLOOD ADD-ON [facility] [address] [place] [address], [facility] DTL [facility] [address] [place] [address] * (ABNORMAL) Comprehensive Metabolic Panel (03/02/2023 8:11 AM PLASTER MOLDER) Pathologist [facility] Potassium, S 4.9 3.6 - 5.2 mmol/L 03/02/2023 9:21 AM PLASTER MOLDER DTL Sodium, S 141 135 - 145 mmol/L 03/02/2023 9:21 AM PLASTER MOLDER DTL Chloride, S 104 98 - 107 mmol/L 03/02/2023 9:21 AM PLASTER MOLDER DTL Bicarbonate, S 27 22 - 29 mmol/L 03/02/2023 9:21 AM PLASTER MOLDER DTL Anion Gap 10 7 - 15 03/02/2023 9:21 AM PLASTER MOLDER DTL BUN (Blood Urea Nitrogen), S 17 8 - 24 mg/dL 03/02/2023 9:21 AM PLASTER MOLDER DTL Creatinine 1.35 0.74 - 1.35 mg/dL 03/02/2023 9:21 AM PLASTER MOLDER DTL Estimated GFR (eGFR) 58(L) >=60 mL/min/BS A 03/02/2023 9:21 AM PLASTER MOLDER DTL Comment: Estimated GFR calculated using the 2020 CKD_EPI creatinine equation. Calcium, Total, S 9.0 8.8 - 10.2 mg/dL 03/02/2023 9:21 AM PLASTER MOLDER DTL Glucose, S 98 70 - 140 mg/dL 03/02/2023 9:21 AM PLASTER MOLDER DTL Protein, Total, S 6.8 6.3 - 7.9 g/dL 03/02/2023 9:21 AM PLASTER MOLDER DTL Albumin, S 4.2 3.5 - 5.0 g/dL 03/02/2023 9:21 AM PLASTER MOLDER DTL Aspartate Aminotransferase (AST), S 41 8 - 48 U/L 03/02/2023 9:21 AM PLASTER MOLDER DTL Alkaline Phosphatase, S 67 40 - 129 U/L 03/02/2023 9:21 AM PLASTER MOLDER DTL Alanine Aminotransferase (ALT), S 52 7 - 55 U/L 03/02/2023 9:21 AM PLASTER MOLDER DTL Bilirubin, Total, S 0.4 0.0 - 1.2 mg/dL 03/02/2023 9:21 AM PLASTER MOLDER DTL Blood (Blood, Venous) 03/02/2023 8:11 AM PLASTER MOLDER 03/02/2023 9:04 AM PLASTER MOLDER David Soto M.D. LAB BLOOD ADD-ON [facility] [address] [place] [address], [facility] DTL [facility] [address] [place] [address] * PET CT Skull to Thigh FDG (03/02/2023 8:00 AM PLASTER MOLDER) Anatomical Region Laterality Modality Body, Nuclear Medicine PET R ST LOS, PET ARZ LOS, Nuclear Medicine PET FLA LOS, Nuclear Medicine N/A Positron Emission Tomography (PET), Positron Emission Tomography (PET) 03/02/2023 8:32 AM PLASTER MOLDER Impressions 03/02/2023 9:56 AM PLASTER MOLDER 1. 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 2. ??Possible FDG avid colon polyp. Recommend colonoscopy correlation, if clinically indicated. Narrative 03/02/2023 9:56 AM PLASTER MOLDER EXAM: ??PET CT SKULL TO THIGH FDG Serum glucose at time of F-18 FDG injection was 109 mg/dL. Patient followed standard dietary/fasting requirements for this exam. RADIOPHARMACEUTICAL/MEDS: Route: intravenous fludeoxyglucose F 18 injection ALF (FDG F-18),9.96 millicurie TECHNIQUE: ??F-18 FDG PET/CT [...] RADIOPHARMACEUTICAL/MEDS: Route: intravenous fludeoxyglucose F 18 injection ALF (FDG F-18),9.96 millicurie TECHNIQUE: F-18 FDG PET/CT [...] polyp. Recommend colonoscopy correlation, ifclinically indicated. David Soto M.D. IMNishant NM PROCEDURES * US Thyroid (02/26/2023 11:20 [...] is amenable to biopsy. David Soto M.D. IMNishant US PROCEDURES * CT SOFT TISSUE NECK W CON-Outside CT Neuro (02/12/2023 8:40 AM CDT) Narrative [facility] - 02/26/2023 1:59 PM CDT This order [...]
--- OUTSIDE RECORDS SUMMARY | 2023-05-06 10:43 | XMS_ITS | Encounter Summary ---
Author Name Unknown Organization [facility] Address [address] [place] [address] Care Team Providers Care Brilliandeer Looper Name Role Phone Unavailable Primary Care Provider Unavailabl e Reason for Visit * Reason Comments Feeding Tube Encounter Details Date Type Department Care Team (Latest Contact Info) Description 05/05/2023 10:00 AM DEDICATED DRIVER Clinical Support Division of Endocrinology in [place], [place] [address] [place] [address] Lauren Hernandez M.D. [address] [place] [address] Nannette Leal, R.N. Malignant Neoplasm Of Tonsil (HCC) Social History [...] your living situation today? I have a [facility] place to live 03/01/2023 Sex and Gender Information Value Date Recorded Sex Assigned at Male 03/01/2023 1:25 PM DEDICATED DRIVER Gender Identity Male 03/01/2023 1:25 PM DEDICATED DRIVER Sexual Orientation Not on file documented as of this encounter Last Filed Vital Signs Vital Sign Reading Time Taken Comments Blood Pressure 125/84 05/05/2023 8:35 AM DEDICATED DRIVER Pulse 66 05/05/2023 8:35 AM DEDICATED DRIVER Temperature - - Respiratory Rate - - Oxygen Saturation - - Inhaled Oxygen Concentration - - Weight - - Height - - Body Mass Index - - documented in this encounter Progress Notes * Nannette Leal, R.N. - 05/05/2023 10:00 AM CST SUBJECTIVE REASON FOR VISIT Mr. Roland was seen in the Home Enteral Nutrition clinic today for a post tube placement visit. OBJECTIVE The indication for tube placement was: Cancer: Head and neck: Squamous cell carcinoma of the left tonsil . Tube was placed using: MAC. Were there complications at time of placement? No. ASSESSMENT Tube type: G tube Tube size: 16 Tube brand: Kranthi Tube reference number: [id number] Connector type: Small Bore (Enfit) Date placed: 05/04/2023 Skin disk level: 5 cm Internal anchor device: Balloon, not checked Site condition: Normal/Intact and scant dried blood drainage Dressing status: Split gauze. Recommended limiting use of gauze at tube site Is an infection assessment needed? No Condition of tube: Tube clear/Normal appearance Securement device used: Adhesive Movement of tube: Moves freely T-fasteners present: No PLAN Is a return visit needed? Annual or sooner as needed Person educated: Patient and Family Teach back done by , Ashlee: Tube site care and Tube rotation Supplies given: [employer] pro net *Tad came to appointments this morning and complained of upper epigastric pain that radiated and was quite uncomfortable. Dr. Chaudhry agreed to see him back in IR to check the tube and found everything was in place. He believes that there is a lot of gas in Tad's stomach and intestines after the tube was placed yesterday that is causing this pain. He suggests that Tad give it a day or two and ifthe pain does not subside, or gets worse, that he call us back or report to the ED. Tad is in agreement with this plan. Tad returned to the [facility] office and completed his visits with us. We discussedusing OTC gas relief medications, as well as increasing his walking in the next day or two to help pass the large amount of gas that could be causing this pain. *Ashlee was able to easily teach back tube care and rotation. They have no other concerns at this time and they were given our card and encouraged to call with any concerns. CATED DRIVER documented in this encounter Plan of Treatment Upcoming Encounters Date Type Department Care Team (Late st Contact Info) Description 05/07/2023 8:00 AM DEDICATED DRIVER Appointment Department of Radiation Oncology in [place], [place] [address] [place] [address] Lauren Hernandez M.D. [address] [place] [address] 05/07/2023 10:00 AM DEDICATED DRIVER Virtual Visit Division of Endocrinology in [place], [place] [address] [place] [address] Kendra Tinsley APRN, C.N.PFco [address] [place] [phone] 05/08/2023 8:00 AM DEDICATED DRIVER Appointment Department of Radiation Oncology in [place], [place] [address] [place] [address] Lauren Hernandez M.D. [address] [place] [phone] 05/11/2023 8:15 AM DEDICATED DRIVER Appointment Department of Radiation Oncology in [place], [place] [address] [place] [address] Lauren Hernandez M.D. [address] [place] [phone] documented as of this encounter Visit Diagnoses Diagnosis Malignant Neoplasm Of Tonsil (HCC) documented in this encounter
--- OUTSIDE RECORDS SUMMARY | 2023-05-06 10:43 | XMS_ITS | Encounter Summary ---
Author Name Unknown Organization [facility] Address [address] [place] [address] Care Team Providers Care Press Clipper Name Role Phone Unavailable Primary Care Provider Unavailabl e Reason for Visit * Radiation Therapy (Routine) - Authorized Specialty Diagnoses / Procedures Referred By Contac t Referred To Contact Diagnoses Malignant Neoplasm Of Oropharynx (HCC) Procedures Prior Auth Rad Tx MA IMRT COMPLEX IMRT Lauren Hernandez M.D. [address] [place] [phone] [facility] Rad[facility] [place] [address] [place] [phone] Referral ID Status Reason Start Date Expiration Date V isits Requested Visits Authorized [id number] Authorized 03/23/2023 03/11/2024 35 35 Encounter Details Date Type Department Care Team (Late st Contact Info) Description 05/05/2023 1:15 PM [facility] Hospital Encounter Department of Radiation Oncology in [place], [place] [address] [place] [phone] Lauren Hernandez M.D. [address] [place] [phone] Social History Tobacco Use Types Packs/Day Years [...] your living situation today? [facility] a [facility] 03/01/2023 Sex and Gender Information Value Date Recorded Sex Assigned at Male 03/01/2023 1:25 PM CIVIL ENGINEER'S AIDE Gender Identity Male 03/01/2023 1:25 PM CIVIL ENGINEER'S AIDE Sexual Orientation Not on file documented as of this encounter Plan of Treatment Upcoming Encounters Date Type Department Care Team (Late st Contact Info) Description 05/07/2023 8:00 AM CIVIL ENGINEER'S AIDE Appointment Department of Radiation Oncology in [place], [place] [address] [place] [phone] Lauren Hernandez M.D. 200 [place] [phone] 05/07/2023 10:00 AM CIVIL ENGINEER'S AIDE Virtual Visit Division of Endocrinology in [place], [place] [address] [place] [phone] Kendra Tinsley APRN, C.N.P. [address] [place] [phone] 05/08/2023 8:00 AM CIVIL ENGINEER'S AIDE Appointment Department of Radiation Oncology in [place], [place] [address] [place] [phone] Lauren Hernandez M.D. [address] [place] [phone] 05/11/2023 8:15 AM CIVIL ENGINEER'S AIDE Appointment Department of Radiation Oncology in [place], [place] [address] [place] [phone] Lauren Hernandez M.D. [address] [place] [phone] documented as of this encounter Visit Diagnoses Not on filedocumented in this encounter
--- OUTSIDE RECORDS SUMMARY | 2023-05-06 10:44 | XMS_ITS | Encounter Summary ---
Author Name Unknown Organization [facility] Address [address] [place] [address] Care Team Providers Care Ribbon Blocker Name Role Phone Unavailable Primary Care Provider Unavailabl e Reason for Referral * Outpatient (Routine) - Authorized Specialty Diagnoses / Procedures Referred By Diamond montemayor Referred To Contact Diagnoses Malignant Neoplasm Of Tonsil (HCC) Dietary Counseling And Surveillance For Enteral Nutrition Kendra Tinsley APRN, C.N.P. [address] [place] [phone] Referral ID Status Reason Start Date Expiration Date V isits Requested Visits Authorized [id number] Authorized 05/01/2023 04/30/2024 1 1 EPRENEURIAL FINANCE PROFESSOR * Outpatient (Routine) - Authorized Specialty Diagnoses / Procedures Referred By Diamond montemayor Referred To Contact Endocrinology Diagnoses Malignant Neoplasm Of Tonsil (HCC) Dietary Counseling And Surveillance For Enteral Nutrition Kendra Tinsley APRN, C.N.P. [address] [place] [address] [facility] Referral ID Status Reason Start Date Expiration Date V isits Requested Visits Authorized [id number] Authorized 05/01/2023 04/30/2026 1 1 EPRENEURIAL FINANCE PROFESSOR Reason for Visit * Outpatient (Routine) - Closed Specialty Diagnoses / Procedures Referred By Diamond montemayor Referred To Contact Endocrinology Diagnoses Malignant Neoplasm Of Tonsil (HCC) Lauren Hernandez M.D. [address] [place] [phone] [facility] Referral ID Status Reason Start Date Expiration Date Visits Re quested Visits Authorized [id number] Closed 04/29/2023 04/28/2024 1 1 Encounter Details Date Type Department Care Team (Latest Contact Info) Description 05/01/2023 2:00 PM ENTREPRENEURIAL FINANCE PROFESSOR Comprehensive Visit Division of Endocrinology in [place], [place] [address] [place] [phone] Lauren Hernandez M.D. [address] [place] [phone] Kendra Tinsley APRN, C.N.PFco [address] [place] [phone] Dietary Counseling And Surveillance For Enteral Nutrition [...] living situation today? I have a [facility] place to live 03/01/2023 Sex and Gender Information Value Date Recorded Sex Assigned at Male 03/01/2023 1:25 PM ENTREPRENEURIAL FINANCE PROFESSOR Gender Identity Male 03/01/2023 1:25 PM ENTREPRENEURIAL FINANCE PROFESSOR Sexual Orientation Not on file documented as of this encounter Consult Notes * Kendra Tinsley, PATRICE, C.N.P. - 05/01/2023 2:00 PM CST SUBJECTIVE REASON FOR VISIT/CHIEF COMPLAINT Home enteral nutrition clinic for pre gastrostomy feeding tube placement evaluation HISTORY OF PRESENT ILLNESS Mr. Tad Roland is a 68 y.o. 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 Primary chemoradiation treatment was advised. He has been receiving radiation therapy at [facility] since 03/23/2023. He is also receiving chemotherapy at [facility]. 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 He last took this on 04/28 night. Surgical history includes laparoscopic cholecystectomy and appendectomy. Mr. Roland presents to the Home Enteral Nutrition Clinic, accompanied by his , Eva. Symptoms: Mr. Roland describes that he has had increasing throat and mouth pain, as well as neck pain from radiation. It has become more difficult to swallow but he has not had any coughing or choking episodes.It is even become difficult to swallow water. He has nausea which comes and goes, but no vomiting. He denies constipation. He has struggling to get in enough fluids and received IV fluid yesterday. He does feel quite tired but denies headaches or dark urine. He receives infusions locally at [facility] and [facility]. Dietary intake: 1 Boost [facility] daily. Weights: See RDN note. He has lost 9% of his body weight since starting radiation. Supplements: None. Activity: None lately. Psychosocial: . 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 Refer to documentation by HEN dietitian and RN, as applicable, for further details and specifics regarding current hydration, nutritional intake, weight trends, and feeding tube assessment, if applicable. The following was reviewed: Videofluoroscopic Swallow Study (VFSS) 03/09/23: Diagnosis: Normal oropharyngeal swallow Recommendations: 1. Continue a regular diet and thin liquids 2. Pills per patient preference 3. Instruction and training in swallowing exercises, if indicated after treatment plan is determined OBJECTIVE PHYSICAL EXAM General: Alert, Oriented x 4, NAD Musculoskeletal: evidence of muscle mass loss to bilateral upper extremities and scapular regions. Cardiology Specialist strength testing was 5/5 bilaterally. Extremities: no edema ASSESSMENT / PLAN #1 Malignant Neoplasm Of Tonsil (HCC) #2 Dietary Counseling And Surveillance For Enteral Nutrition Mr. Roland presents for home enteral nutrition clinic evaluation prior to planned gastrostomy feeding tube placement. While undergoing chemoradiation treatment for tonsillar squamous cell carcinoma, he has experienced treatment related side effects of dysphagia and odynophagia which have made oral intake increasingly difficult. He is lost 9% of his body weight since starting radiation 03/23/2023. BMI is 38 kilograms/meter squared. He reports decreased muscle mass and strength from his normal baseline. He has also been struggling to maintain appropriate hydration. He meets criteria for Moderate Malnutrition according to following GLIM (Global Leadership Initiative on Malnutrition) criteria: Presence of acute disease/injury or chronic disease, Mild to moderate muscle mass deficit, Reduced food intake, Any reduction for > 2 weeks, and Unintentional weight loss 5-10 % in 6 months. In the above setting, enteral nutrition support is indicated. Estimated length of need for enteral nutrition is at least three months. We reviewed that the benefits of feeding tube placement include provision of nutrition, hydration, and medication administration. Potential risks include bleeding or trauma to the GI tract during placement, feeding tube site infection, buried balloon complication,granulation tissue development in mild postprocedural pain. Given his limited caloric intake and weight loss, along with underlying cancer diagnosis, he is at significant risk for refeeding with the initiation of enteral nutrition. We discussed the need to gradually increase his calories will monitoring his clinical status and labs. We will have labs monitored locally and if needed at [facility] and [facility]. If he develops symptoms of refeeding including chest pain, heart palpitations, difficulty breathing, swelling, muscle twitching or cramping or severe lethargy, he should seek medical evaluation. He confirms understanding of all the above benefits and risks and wishes to proceed with feeding tube placement. RECOMMENDATIONS: Proceed with gastrostomy feeding tube placement as scheduled in IR on 05/04. We will request 1 Liter of D5 1/2 NS IV fluid and thiamine 200 mg IV in IR. 2. Blood draw Thursday 05/04 to check magnesium, phosphorus, BMP; [facility]. 3. Plan for refeeding labs on 05/07 in [place]. 4. Enteral goal will be for Boost [facility] 4 cartons daily. Start with 1.5 cartons 05/05, 2 on 05/06. Awaitlab results 05/07 for further advancement. 5. Oral intake of liquids as tolerated. Followup: HEN clinic post tube placement education appointments. HEN DUMPCART DRIVER phone visit 05/07. Will continue to follow per protocol. Total time spent 70 minutes, including dewr-vb-kqcp and non izwr-hc-krvj care time. EPRENEURIAL FINANCE PROFESSOR documented in this encounter Plan of Treatment Upcoming Encounters Date Type Department Care Team (Late st Contact Info) Description 05/07/2023 8:00 AM ENTREPRENEURIAL FINANCE PROFESSOR Appointment Department of Radiation Oncology in [place], [place] [address] [place] [phone] Lauren Hernandez M.D. [address] [place] [address] 05/07/2023 10:00 AM ENTREPRENEURIAL FINANCE PROFESSOR Virtual Visit Division of Endocrinology in [place], [place] [address] [place] [phone] Kendra Tinsley APRN, C.N.P. [address] [place] [phone] 05/08/2023 8:00 AM ENTREPRENEURIAL FINANCE PROFESSOR Appointment Department of Radiation Oncology in [place], [place] [address] [place] [phone] Lauren Hernandez M.D. [address] [place] [phone] 05/11/2023 8:15 AM ENTREPRENEURIAL FINANCE PROFESSOR Appointment Department of Radiation Oncology in [place], [place] [address] [place] [phone] Lauren Hernandez M.D. [address] [place] [phone] Scheduled Referrals Name Type Priority Associated Diagnoses Orde r Schedule Endocrinology office visit (clinic) Outpatient Referral Routine Malignant Neoplasm Of Tonsil (HCC) Dietary Counseling And Surveillance For Enteral Nutrition Expected: 05/07/2023, Expires: 07/30/2024 documented as of this encounter Results * Phosphorus Inorganic (05/04/2023 9:38 AM ENTREPRENEURIAL FINANCE PROFESSOR) Phosphorus (Inorganic), S 3.1 2.5 - 4.5 mg/dL 05/04/2023 11:19 AM ENTREPRENEURIAL FINANCE PROFESSOR DTL Blood (Blood, Venous) 05/04/2023 9:38 AM ENTREPRENEURIAL FINANCE PROFESSOR 05/04/2023 10:04 AM ENTREPRENEURIAL FINANCE PROFESSOR Kendra Tinsley APRN C.N.P. LAB BLO OD ADD-ON [facility] [address] [place] [address], [facility] DTL [facility] [address] [place] [address] * Magnesium (05/04/2023 9:38 AM ENTREPRENEURIAL FINANCE PROFESSOR) Magnesium, S 2.1 1.7 - 2.3 mg/dL 05/04/2023 11:19 AM ENTREPRENEURIAL FINANCE PROFESSOR DTL Blood (Blood, Venous) 05/04/2023 9:38 AM ENTREPRENEURIAL FINANCE PROFESSOR 05/04/2023 10:04 AM ENTREPRENEURIAL FINANCE PROFESSOR Kendra Tinsley APRN, C.N.P. LAB BLO OD ADD-ON [facility] [address] [place] [address], [facility] DTL [facility] [address] [place] [address] * Basic Metabolic Panel (05/04/2023 9:38 AM ENTREPRENEURIAL FINANCE PROFESSOR) Potassium, S 4.8 3.6 - 5.2 mmol/L 05/04/2023 11:19 AM ENTREPRENEURIAL FINANCE PROFESSOR DTL Sodium, S 140 135 - 145 mmol/L 05/04/2023 11:19 AM ENTREPRENEURIAL FINANCE PROFESSOR DTL Chloride, S 102 98 - 107 mmol/L 05/04/2023 11:19 AM ENTREPRENEURIAL FINANCE PROFESSOR DTL Bicarbonate, S 26 22 - 29 mmol/L 05/04/2023 11:19 AM ENTREPRENEURIAL FINANCE PROFESSOR DTL Anion Gap 12 7 - 15 05/04/2023 11:19 AM ENTREPRENEURIAL FINANCE PROFESSOR DTL BUN (Blood Urea Nitrogen), S 21 8 - 24 mg/dL 05/04/2023 11:19 AM ENTREPRENEURIAL FINANCE PROFESSOR DTL Creatinine 1.26 0.74 - 1.35 mg/dL 05/04/2023 11:19 AM ENTREPRENEURIAL FINANCE PROFESSOR DTL Estimated GFR (eGFR) 63 >=60 mL/min/BSA 05/04/2023 11:19 AM ENTREPRENEURIAL FINANCE PROFESSOR DTL Comment: Estimated GFR calculated using the 2020 CKD_EPI creatinine equation. Calcium, Total, S 9.7 8.8 - 10.2 mg/dL 05/04/2023 11:19 AM ENTREPRENEURIAL FINANCE PROFESSOR DTL Glucose, S 94 70 - 140 mg/dL 05/04/2023 11:19 AM ENTREPRENEURIAL FINANCE PROFESSOR DTL Blood (Blood, Venous) 05/04/2023 9:38 AM ENTREPRENEURIAL FINANCE PROFESSOR 05/04/2023 10:04 AM ENTREPRENEURIAL FINANCE PROFESSOR Leighann Martinez APRNNDonell LAB BLO OD ADD-ON [place] [address] [place] [address], [facility] [address] [place] [address] documented in this encounter Visit Diagnoses Diagnosis Dietary Counseling And Surveillance For Enteral Nutrition- Primary Malignant Neoplasm Of Tonsil (HCC) documented in this encounter
--- OUTSIDE RECORDS SUMMARY | 2023-05-06 10:44 | XMS_ITS | Encounter Summary ---
Author Name Unknown Organization [facility] Address [address] [place] [id number] Care Team Providers Care Web User Experience Strategist Name Role Phone Unavailable Primary Care Provider Unavailabl e Reason for Visit * Reason Comments Scheduling Encounter Details Date Type Department Care Team ([facility] st Contact Info) Description 04/29/2023 Documentation Division of General Internal Medicine in [place], [place] [address] [place] [phone] Jihan Rivas, RFcoN. [address] [place] [phone] Scheduling Social History Tobacco Use Types Packs/Day Years [...] living situation today? I have a [facility] place to live 03/01/2023 Sex and Gender Information Value Date Recorded Sex Assigned at Male 03/01/2023 1:25 PM FARM MANAGEMENT ADVISER Gender Identity Male 03/01/2023 1:25 PM FARM MANAGEMENT ADVISER Sexual Orientation Not on file documented as of this encounter Progress Notes * Jihan Rivas, R.N. - 04/29/2023 3:10 PM CST SUBJECTIVE Lauren Hernandez MD consulted the HEN clinic about the plan of care for Mr. Roland. The plan of care developed includes the need for a new G tube. OBJECTIVE The indication for tube placement is: Cancer: Head and neck: Squamous cell carcinoma of the left tonsil . Has the patient had a previous swallow study? Yes; on 03/09/2023. Findings: Normal oropharyngeal swallow . Is the patient currently receiving radiation treatments? Yes ASSESSMENT Is there any cardiovascular history? Dyslipidemia, DVT left lower extremity Is there any GI medical history? None Is there any GI surgical history? Appendectomy, Cholecystectomy, Hemorrhoid surgery Is there any history of abdominal hernia repair with mesh? No Is there any mental health history? None Is there any neuro/musculoskeletal history? None Is there any pulmonary history? Sleep apnea Is there any history of head and neck surgery? No Other medical history: Hypothyroidism Anesthesia considerations are: Head of neck cancer associated with radiation, Narcotics, Obstructive sleep apnea, and Tobacco use (past) Is the patient currently taking any anticoagulation medication? Xarelto listed on his medication list from 5 years ago. I sent him a portal message asking if he was still taking this medication or any other blood thinner. Is the patient currently taking narcotic pain medication? Yes PLAN This procedure should be scheduled for: IR Scheduling needs include: Procedure time: Per IR Proceduralist needed: Per IR Is fluoroscopy needed? Per IR Is anesthesia needed? Per IR Has the HEN Provider pre appointment been scheduled? Not yet scheduled Has the HEN Dietitian pre appointment been scheduled? Not yet scheduled Has the HEN Nurse pre appointment been scheduled? Not yet scheduled Has the HEN Dietitian post appointment been scheduled? Not yet scheduled Has the HEN Nurse post appointment been scheduled? Not yet scheduled Any additional scheduling comments? PET scan done 03/02/2023 The patient's requested appointment dates are: First available *UPDATE 04/30/2023--Per Oncology team pt has been holding Xarelto since 04/28/2023. MANAGEMENT ADVISER documented in this encounter Plan of Treatment Upcoming Encounters Date Type Department Care Team (Late st Contact Info) Description 05/07/2023 8:00 AM FARM MANAGEMENT ADVISER Appointment Department of Radiation Oncology in [place], [place] [address] [place] [phone] Lauren Hernandez M.D. 200 [place] [phone] 05/07/2023 10:00 AM FARM MANAGEMENT ADVISER Virtual Visit Division of Endocrinology in [place], [place] [address] [place] [phone] Kendra Tinsley APRN, C.N.P. [address] [place] [phone] 05/08/2023 8:00 AM FARM MANAGEMENT ADVISER Appointment Department of Radiation Oncology in [place], [place] [address] [place] [phone] Lauren Hernandez M.D. [address] [place] [address] 05/11/2023 8:15 AM FARM MANAGEMENT ADVISER Appointment Department of Radiation Oncology in [place], [place] [address] [place] [phone] Lauren Hernandez M.D. [address] [place] [address] documented as of this encounter Visit Diagnoses Not on filedocumented in this encounter
--- OUTSIDE RECORDS SUMMARY | 2023-05-06 10:44 | XMS_ITS | Encounter Summary ---
Author Name Unknown Organization [facility] Address [address] [place] [address] Care Team Providers Care Blue Line Trimmer Name Role Phone Unavailable Primary Care Provider Unavailabl e Reason for Visit * Radiation Therapy (Routine) - Authorized Specialty Diagnoses / Procedures Referred By Contac t Referred To Contact Diagnoses Malignant Neoplasm Of Oropharynx (HCC) Procedures Prior Auth Rad Tx [place] IMRT COMPLEX IMRT Lauren Hernandez M.D. [address] [place] [phone] [facility] Radiation Oncology at [place] [address] [place] [phone] Referral ID Status Reason Start Date Expiration Date V isits Requested Visits Authorized [id number] Authorized 03/23/2023 03/11/2024 35 35 Encounter Details Date Type Department Care Team (Late st Contact Info) Description 05/01/2023 7:46 AM [facility] Hospital Encounter Department of Radiation Oncology in [place], [place] [address] [place] [phone] Lauren Hernandez M.D. [address] [place] [phone] Social History Tobacco Use Types Packs/Day Years [...] your living situation today? I have a [facility] place to live 03/01/2023 Sex and Gender Information Value Date Recorded Sex Assigned at Male 03/01/2023 1:25 PM TOBACCO PACKING MACHINE OPERATOR Gender Identity Male 03/01/2023 1:25 PM TOBACCO PACKING MACHINE OPERATOR Sexual Orientation Not on file documented as of this encounter Plan of Treatment Upcoming Encounters Date Type Department Care Team (Late st Contact Info) Description 05/07/2023 8:00 AM TOBACCO PACKING MACHINE OPERATOR Appointment Department of Radiation Oncology in [place], [place] [address] [place] [phone] Lauren Hernandez M.D. 200 [place] [phone] 05/07/2023 10:00 AM TOBACCO PACKING MACHINE OPERATOR Virtual Visit Division of Endocrinology in [place], [place] [address] [place] [address] Kendra Tinsley APRN, C.N.P. [address] [place] [phone] 05/08/2023 8:00 AM TOBACCO PACKING MACHINE OPERATOR Appointment Department of Radiation Oncology in [place], [place] [address] [place] [address] Lauren Hernandez M.D. [address] [place] [phone] 05/11/2023 8:15 AM TOBACCO PACKING MACHINE OPERATOR Appointment Department of Radiation Oncology in [place], [place] [address] [place] [phone] Lauren Hernandez M.D. [address] [place] [phone] documented as of this encounter Visit Diagnoses Not on filedocumented in this encounter
--- OUTSIDE RECORDS SUMMARY | 2023-05-06 10:44 | XMS_ITS | Encounter Summary ---
Author Name Unknown Organization [facility] Address [address] [place] [address] Care Team Providers Care Telegraph Repeater Technician Name Role Phone Unavailable Primary Care Provider Unavailabl e Reason for Visit * Radiation Therapy (Routine) - Authorized Specialty Diagnoses / Procedures Referred By Contac t Referred To Contact Diagnoses Malignant Neoplasm Of Oropharynx (HCC) Procedures Prior Auth Rad Tx LA IMRT COMPLEX IMRT Lauren Hernandez M.D. [address] [place] [phone] [facility] [place] [address] [place] [phone] Referral ID Status Reason Start Date Expiration Date V isits Requested Visits Authorized [id number] Authorized 03/23/2023 03/11/2024 35 35 Encounter Details Date Type Department Care Team (Late st Contact Info) Description 04/30/2023 7:50 AM [facility] Hospital Encounter Department of Radiation Oncology in [place], [place] [address] [place] [phone] Lauren Hernandez M.D. [address] [place] [phone] Social History Tobacco Use Types Packs/Day Years [...] your living situation today? I have a [facility] place to live 03/01/2023 Sex and Gender Information Value Date Recorded Sex Assigned at Male 03/01/2023 1:25 PM ECONOMIC DEVELOPMENT COORDINATOR Gender Identity Male 03/01/2023 1:25 PM ECONOMIC DEVELOPMENT COORDINATOR Sexual Orientation Not on file documented as of this encounter Plan of Treatment Upcoming Encounters Date Type Department Care Team (Late st Contact Info) Description 05/07/2023 8:00 AM ECONOMIC DEVELOPMENT COORDINATOR Appointment Department of Radiation Oncology in [place], [place] [address] [place] [phone] Lauren Hernandez M.D. [address] [place] [phone] 05/07/2023 10:00 AM ECONOMIC DEVELOPMENT COORDINATOR Virtual Visit Division of Endocrinology in [place], [place] [address] [place] [phone] Kendra Tinsley APRN, C.N.P. [address] [place] [phone] 05/08/2023 8:00 AM ECONOMIC DEVELOPMENT COORDINATOR Appointment Department of Radiation Oncology in [place], [place] [address] [place] [phone] Lauren Hernandez M.D. [address] [place] [phone] 05/11/2023 8:15 AM ECONOMIC DEVELOPMENT COORDINATOR Appointment Department of Radiation Oncology in [place], [place] [address] [place] [phone] Lauren Hernandez M.D. [address] [place] [phone] documented as of this encounter Visit Diagnoses Not on filedocumented in this encounter
--- OUTSIDE RECORDS SUMMARY | 2023-05-06 10:44 | XMS_ITS | Encounter Summary ---
Author Name Unknown Organization [facility] Address [address] [place] [address] Care Team Providers Care Security Supervisor Name Role Phone Unavailable Primary Care Provider Unavailabl e Encounter Details Date Type Department Care Team (Late st Contact Info) Description 04/30/2023 Clinical Communication Department of Radiation Oncology in [place], [place] [address] [place] [phone] Ramanedep Sanz, RJurgen [address] [place] [phone] Social History Tobacco Use Types Packs/Day Years [...] your living situation today? I have a [facility] place to live 03/01/2023 Sex and Gender Information Value Date Recorded Sex Assigned at Male 03/01/2023 1:25 PM PRE WAVE ASSEMBLER Gender Identity Male 03/01/2023 1:25 PM PRE WAVE ASSEMBLER Sexual Orientation Not on file documented as of this encounter Miscellaneous Notes * Telephone Encounter - Ramandeep Sanz R.N. - 04/30/2023 9:03 AM PRE WAVE ASSEMBLER Information Discussed Called patient to let him know that he needs to stop taking his Xarelto 4 days prior to his PEG tube placements. Patient reports that his last dose of Xarelto was on April 28, 2023 so he should be good for his procedure this coming Monday, May 01, 2023. PLAN Patient is aware of his upcoming appointments and PEG tube placement in [place] on Monday, May 01, 2023. He knows that he should not resume his Xarelto until after his procedure as directed by the Endocrinology/Nutrition team. He has no further questions and verbalizes understanding. Disposition/Recommendation: self-care - appropriate at this time, patient encouraged to call back with questions Information/Education: patient/caller able to teach back Caller agreeable to plan of care: yes The following references were used: Provider- Jihan Rivas R.N from the [facility] team asked us to reach out to the patient to have him stop his Xarelto 4 days prior to his tube feeding placement. WAVE ASSEMBLER documented in this encounter Plan of Treatment Upcoming Encounters Date Type Department Care Team (Late st Contact Info) Description 05/07/2023 8:00 AM PRE WAVE ASSEMBLER Appointment Department of Radiation Oncology in [place], [place] [address] [place] [phone] Lauren Hernandez M.D. [address] [place] [phone] 05/07/2023 10:00 AM PRE WAVE ASSEMBLER Virtual Visit Division of Endocrinology in [place], [place] [address] [place] [phone] Kendra Tinsley APRN, C.N.P. [address] [place] [phone] 05/08/2023 8:00 AM PRE WAVE ASSEMBLER Appointment Department of Radiation Oncology in [place], [place] [address] [place] [phone] Lauren Hernandez M.D. [address] [place] [phone] 05/11/2023 8:15 AM PRE WAVE ASSEMBLER Appointment Department of Radiation Oncology in [place], [place] [address] [place] [phone] Lauren Hernandez M.D. [address] [place] [phone] documented as of this encounter Visit Diagnoses Not on filedocumented in this encounter
--- OUTSIDE RECORDS SUMMARY | 2023-05-06 10:44 | XMS_ITS | Encounter Summary ---
Author Name Unknown Organization [facility] Address [address] [place] [address] Care Team Providers Care Heating Systems Installer Name Role Phone Unavailable Primary Care Provider Unavailabl e Reason for Referral * Outpatient (Routine) - Closed Specialty Diagnoses / Procedures Referred By Diamond montemayor Referred To Contact Radiology Diagnoses Malignant Neoplasm Of Tonsil (HCC) Procedures IR Gastrostomy Tube Placement Lauren Hernandez M.D. [address] [place] [address] [facility] Referral ID Status Reason Start Date Expiration Date Visits Re quested Visits Authorized [id number] Closed 04/29/2023 04/28/2024 1 1 RAFT DETAIL DRAFTSPERSON Reason for Visit * Auth/Cert (Routine) Specialty Diagnoses / Procedures Referred By Diamond montemayor Referred To Contact Diagnoses Malignant Neoplasm Of Tonsil (HCC) Procedures IR GASTROSTOMY TUBE PLACEMENT Referral ID Status Reason Start Date Expiration Date Visits Re quested Visits Authorized [id number] 1 1 Encounter Details Date Type Department Care Team (Latest Contact Info) Description 05/04/2023 10:57 AM AIRCRAFT DETAIL DRAFTSPERSON - 05/04/2023 3:48 PM AIRCRAFT DETAIL DRAFTSPERSON Hospital Encounter Department of Radiology in [place], [place] [address] [place] [phone] Lauren Hernandez M.D. [address] [place] [phone] Carlito Chaudhry M.D. [address] [place] [phone] Niko Quintanilla M.D. [address] [place] [phone] Malignant Neoplasm Of Tonsil (HCC) Discharge Disposition: [...] your living situation today? I have a [facility] place to live 03/01/2023 Sex and Gender Information Value Date Recorded Sex Assigned at Male 03/01/2023 1:25 PM AIRCRAFT DETAIL DRAFTSPERSON Gender Identity Male 03/01/2023 1:25 PM AIRCRAFT DETAIL DRAFTSPERSON Sexual Orientation Not on file documented as of this encounter Last Filed Vital Signs Vital Sign Reading Time Taken Comments Blood Pressure 121/87 05/04/2023 3:35 PM AIRCRAFT DETAIL DRAFTSPERSON Pulse 61 05/04/2023 3:35 PM AIRCRAFT DETAIL DRAFTSPERSON Temperature 36.9 ??C (98.4 ??F) 05/04/2023 1:48 PM CS T Respiratory Rate 22 05/04/2023 3:35 PM AIRCRAFT DETAIL DRAFTSPERSON Oxygen Saturation 95% 05/04/2023 3:35 PM AIRCRAFT DETAIL DRAFTSPERSON Inhaled Oxygen Concentration - - Weight 109 kg (239 lb 13.8 oz) 05/04/2023 11:47 AM AIRCRAFT DETAIL DRAFTSPERSON Height - - Body Mass Index 37.69 05/01/2023 11:02 AM AIRCRAFT DETAIL DRAFTSPERSON documented in this encounter Discharge Instructions * Discharge Instr - Activity* Shara Andrew APRN, C.N.P., M.S.N. - 05/04/2023 12:39 PM AIRCRAFT DETAIL DRAFTSPERSON Report to the Emergency Room if you experience the following: - Severe nausea or vomiting - Acute or sharp abdominal pain - Shortness of breath - Fever and chills After G-tube placement, if you are able to tolerate oral intake, please refrain for two hours priorto restarting oral intake. After this point, continue to minimize it to only small sips of liquids and medications only. If you are unable to tolerate oral intake, please do NOT use G-tube for two hours. After this period, please only minimize it to small volumes of water with medications. Recommend 30 cc water before and after medication administration. Pain medication options: Liquid/PO Tylenol 1000 mg can be given every 6 hours. To supplement, liquid/PO 600 mg ibuprofen canbe used. RAFT DETAIL DRAFTSPERSON * Attachments The following attachments cannot be sent through Care Everywhere. * Instructions After Sedation or Anesthesia for Adults (Chilean) documented in this encounter Medications at Time of Discharge Medication Sig Dispensed Refills Start Date End Date atorvastatin (LIPITOR) 10 mg tablet atorvastatin 10 mg oral tablet Start Date: 08/23/20 Status: Ordered 0 08/22/2020 azelaic acid (FINACEA) 15 % gel 0 09/20/2020 diphenhydramine-lidoc dony 2 %-antacid (mw)Indications:break through cancer pain Take 5-10 mL by mouth [...] mL 12 03/10/2023 03/09/2024 glucosamine portillo 2KCl-chondroit (Glucosamine-Chondroi tin 3X Str) 750-600 mg tablet 0 04/27/2012 [...] Start Date: 02/14/21 Status: Ordered 0 11/25/2016 fentaNYL (DURAGESIC) 12 mcg/hr patchIndications:Acut e Pain Exception Place 1 patch on the skin every third day for 3 doses Indication: Acute Pain Exception. 3 patch 0 04/29/2023 05/05/2023 HYDROcodone-acetamino phen (NORCO) 5-325 mg per tabletIndications:Pro longed Acute Pain/Traumatic Injury Take 2 tablets by mouth every 4 (four) hours as needed for pain Indication: Prolonged Acute Pain/Traumatic Injury. 30 tablet 0 04/17/2023 05/05/2023 documented as of this encounter Procedure Notes * Shara Andrew APRN, C.N.P., M.S.N. 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 Symptoms of dysphagia have worsened recently, requiring considerations for placement of a gastrostomy tube. He presents for procedure today. CURRENT MEDICATIONS No current facility-administered medications on file prior to encounter. Current Outpatient Medications on File Prior to Encounter Medication Sig Dispense Refill atorvastatin (LIPITOR) 10 mg tablet atorvastatin 10 mg oral tablet Start Date: 08/23/20 Status: Ordered azelaic acid (FINACEA) 15 % gel diphenhydramine-lidocaine 2 %-antacid (mw) Take 5-10 mL by mouth 4 (four) times a day before meals and bedtime Indications: pain in a cancer patient when on pain medication. Swish in mouth for 1 minute and then spit out solution.Do not eat or drink for 15-30 minutes after use. 480 mL 2 fentaNYL (DURAGESIC) 12 mcg/hr patch Place 1 patch on the skin every third day for 3 doses Indication: Acute Pain Exception. 3 patch 0 finasteride (PROSCAR) 5 mg tablet finasteride 5 mg oral tablet Start Date: 09/28/20 Status: Ordered fluoride, sodium, (PREVIDENT) 1.1 % gel dental gel Apply 1 Application to the mouth or throat daily. Floss, brush, baking soda rinse. Apply thin gel ribbon to trays wear 5 minutes. Remove trays expectorate excess gel. No eating drinking or rinsing for 30 min. 100 mL 12 glucosamine portillo 2KCl-chondroit (Glucosamine-Chondroitin 3X Str) 750-600 mg tablet glucosamine sulfate (GLUCOSAMINE ORAL) Take 2 capsules by mouth daily. HYDROcodone-acetaminophen (NORCO) 5-325 mg per tablet Take 2 tablets by mouth every 4 (four) hours as needed for pain Indication: Prolonged Acute Pain/Traumatic Injury. 30 tablet 0 ibuprofen (ADVIL,MOTRIN) 200 mg tablet Take 3-4 tablets by mouth daily as needed. unknown levothyroxine (SYNTHROID, LEVOTHROID) 125 mcg tablet naloxone (NARCAN) 4 mg/actuation nasal spray Administer 1 spray (4 mg total) into one nostril as needed for reversal. Use 1 spray in 1 nostril. Repeat with second device in other nostril after 2-3 minutes if no or minimal response. 4 each 0 ondansetron (ZOFRAN) 4 mg tablet Take 4 mg by mouth. prochlorperazine (COMPAZINE) 5 mg tablet Take 5 mg by mouth every 8 (eight) hours as needed for nausea or vomiting. rivaroxaban (XARELTO) 20 mg tablet rivaroxaban 20 mg oral tablet Start Date: 02/14/21 Status: Ordered VITAL SIGNS Vitals: 05/04/23 1348 BP: 134/90 Pulse: 64 Resp: 15 Temp: 36.9 ??C SpO2: 94% ALLERGIES No Known Allergies PHYSICAL EXAMINATION General: NAD, alert and oriented, conversant without trouble, no issues along the newly placed 16 Slovak gastrostomy tube ASSESSMENT/RECOVERY DISPOSITION 68-year-old gentleman with history of left tonsil squamous cell carcinoma with worsening dysphagia.Treatment course in includes chemoradiotherapy. Successful 16 Slovak percutaneous gastrostomy tube placed under imaging guidance without immediate complications. Patient is seen in recovery and doingquite well. He complains of some epigastric and back discomfort that is likely related to positioning. No concerns around the skin site of the G-tube. Hemodynamics are stable. PLAN -Bedrest and recovery to continue in VIR pre/post. HOB elevated x 1 hour -1 dose IV Tylenol immediately in recovery -should be appropriate for dismissal once all criteria are met -NPO for the next 2 hours. Instructed no use of feeding tube until patient meets with HEN tomorrow Please page VIR NPPA at [phone] M-F 7AM-5PM or on-call resident at [phone] after 5PM and weekends. RAFT DETAIL DRAFTSPERSON documented in this encounter Plan of Treatment Upcoming Encounters Date Type Department Care Team (Late st Contact Info) Description 05/07/2023 8:00 AM AIRCRAFT DETAIL DRAFTSPERSON Appointment Department of Radiation Oncology in [address] [phone] Lauren Hernandez M.D. [address] [place] [phone] 05/07/2023 10:00 AM AIRCRAFT DETAIL DRAFTSPERSON Virtual Visit Division of Endocrinology in [place], [place] [address] [place] [phone] Kendra Tinsley APRN, C.N.PFco [address] [place] [phone] 05/08/2023 8:00 AM AIRCRAFT DETAIL DRAFTSPERSON Appointment Department of Radiation Oncology in [address] [phone] Lauren Hernandez M.D. [address] [place] [phone] 05/11/2023 8:15 AM AIRCRAFT DETAIL DRAFTSPERSON Appointment Department of Radiation Oncology in [address] [phone] Lauren Hernandez M.D. [address] [place] [phone] documented as of this encounter Procedures Procedure Name Priority Date/Time Associated Diagnosis Comments IR GASTROSTOMY TUBE PLACEMENT RAD - Routine (most inpatients and all outpatients) 05/04/2023 1:35 PM AIRCRAFT DETAIL DRAFTSPERSON Malignant Neoplasm Of Tonsil (HCC) ECG STAT 05/04/2023 11:34 AM AIRCRAFT DETAIL DRAFTSPERSON documented in this encounter Results * IR Gastrostomy Tube Placement (05/04/2023 1:35 PM AIRCRAFT DETAIL DRAFTSPERSON) Anatomical Region Laterality Modality Abdomen, Vascular Interventi onal RST LOS, Vascular Interventional ARZ LOS, Vascular Interventional FLA LOS N/A X-Ray Angiography Impressions 05/04/2023 2:06 PM AIRCRAFT DETAIL DRAFTSPERSON Placement of a 16 Slovak percutaneous gastrostomy tube. Nothing by mouth or tube for 2 hours (strict). Then use of mouth or tube for water, medications, and/or tube feeds per Nutrition note/order. Exchange tube in 3-5 months. Contact the [facility] clinic at [phone] to schedule the tube exchange. EP Narrative 05/04/2023 2:06 PM AIRCRAFT DETAIL DRAFTSPERSON EXAM: IR GASTROSTOMY TUBE PLACEMENT CLINICAL HISTORY: 68-year-old male male with history of tonsillar squamous cell carcinoma with moderate malnutrition requiring gastrostomy tube placement. Pre-Procedure Diagnosis: Cancer. Indication: Feeding. TECHNIQUE: The patient was placed supine on the fluoroscopy table. Under fluoroscopic guidance, a 4 Slovak catheter was placed as a nasogastric tube. [...] confirmed with a small contrast injection. 4 Slovak catheter and Glidewire were advanced into the [...] applied. No immediate complication. Tube Type: Gastrostomy, gulkana. Tube Connection: ENFit. Tube Size: 16 Slovak. Low Profile: No. Disc Height: 5 cm. [...] the fluoroscopy table. Underfluoroscopic guidance, a 4 Slovak catheter was placed as a nasogastrictube. The [...] confirmed with a small contrast injection. 4 Slovak catheter andGlidewire were advanced into the duodenum [...] applied. No immediate complication. Tube Type: Gastrostomy, gulkana. Tube Connection: ENFit. Tube Size: 16 Slovak. Low Profile: No. Disc Height: 5 cm. [...] by Anesthesiology. IMPRESSION: Placement of a 16 Slovak percutaneous gastrostomy tube. Nothing by mouthor tube for 2 hours (strict). Then use of mouth or tube for water,medications, and/or tube feeds per Nutrition note/order. Exchange tube in3-5 months. Contact the [facility] clinic at [phone] to schedule the tube exchange. EP Lauren RAUSCH IR PROCEDURES * ECG 12 Lead (05/04/2023 11:34 AM AIRCRAFT DETAIL DRAFTSPERSON) Ventricular Rate ECG/Min 62 BPM MUSE MO Interval 174 ms MUSE QRSD Interval 100 ms MUSE QT Interval 420 ms MUSE QTC Interval 426 ms MUSE P [place] 10 degrees MUSE R [place] -9 degrees MUSE T Wave [place] -14 degrees MUSE 05/04/2023 11:3 4 AM AIRCRAFT DETAIL DRAFTSPERSON 05/04/2023 11:53 AM AIRCRAFT DETAIL DRAFTSPERSON Impressions MUSE - 05/04/2023 11:53 AM AIRCRAFT DETAIL DRAFTSPERSON Normal sinus rhythm Normal ECG No previous ECGs available Reviewed by BHAVESH Medina Narrative Procedure Note Edward Mccurdy Jr., M.D. - 05/04/2023 IMPRESSION: Normal sinus rhythm Normal ECG No previous ECGs available Reviewed by BHAVESH Medina Carlito Chaudhry M.D. ECG ORDERABLES MUSE NA documented in this encounter Visit Diagnoses Diagnosis Malignant Neoplasm Of Tonsil (HCC) documented in this encounter Administered Medications Inactive Administered Medications - up to 3 most recent administrations Medication Order MAR Action Action Date Dose Rate Site acetaminophen injection 1,000 mg 1,000 mg, intravenous, at 400 mL/hr, Administer over 15 Minutes, Once, On Thu05/04/23 at 1415, For 1 dose, Restriction Criteria (Pharmacy will review and approve if criteria met): Unable to take or tolerate medications administered via the enteral route or orally (not just NPO) New Bag 05/04/2023 1:53 PM AIRCRAFT DETAIL DRAFTSPERSON 1,000 mg 400 mL/hr ceFAZolin injection 2 g (ANCEF) 2 g, intravenous, Once, On Thu05/04/23 at 1145, For 1 dose, Preprocedure (RAD), If needed, reconstitute vial per package insert instructions. See IVAG for administration guidelines., Indications: Prophylaxis, surgical Given 05/04/2023 11:41 AM AIRCRAFT DETAIL DRAFTSPERSON 2 g D5W and NaCl 0.45 % bolus 1,000 mL 1,000 mL, intravenous, at 333 mL/hr, Administer over 3 Hours, Once, On Thu05/04/23 at 1145, For 1 dose, Preprocedure (RAD) New Bag 05/04/2023 12:07 PM AIRCRAFT DETAIL DRAFTSPERSON 1,000 mL 333 mL/hr iohexoL 300 mg iodine/mL solution (OMNIPAQUE) As needed, Starting on Thu05/04/23 at 1335, Intra-Op Given 05/04/2023 1:35 PM AIRCRAFT DETAIL DRAFTSPERSON 70 mL lidocaine-sodium bicarbonate (buffered) 0.9%-8.4% injection infiltration, As needed, Starting on Thu05/04/23 at 1335, Intra-Op Given 05/04/2023 1:35 PM AIRCRAFT DETAIL DRAFTSPERSON 10 mL ondansetron (PF) injection 4 mg (ZOFRAN) 4 mg, intravenous, Every 6 hours PRN, vomiting, nausea, Starting on Thu05/04/23 at 1345, Reassess for nausea or vomiting after at least 10 minutes. If nausea or vomiting persists administer next ordered antiemetic medications (order for antiemetic medication administration ondansetron then prochlorperazine). prochlorperazine injection 5 mg (COMPAZINE) 5 mg, intravenous, Every 6 hours PRN, nausea, vomiting, Starting on Thu05/04/23 at 1345, RASS must be -2 or higher to administer. Reassess for nausea or vomiting after at least 10 minutes. If nausea or vomiting persists administer next ordered antiemetic medications (order for antiemetic medication administration ondansetron then prochlorperazine) sodium chloride 0.9 % injection 10 mL 10 mL, intravenous, As needed, line care, Starting on Thu05/04/23 at 1120, Preprocedure (RAD), Peripheral Intravenous Catheter and Rapid Infusion Catheter, prior to blood sampling, post blood transfusion or post blood sampling sodium chloride 0.9 % injection 10 mL 10 mL, intravenous, As needed, line care, Starting on Thu05/04/23 at 1120, Preprocedure (RAD), Peripheral Intravenous Catheter and Rapid Infusion Catheter, prior to blood sampling, post blood transfusion or post blood sampling sodium chloride 0.9 % injection 3 mL 3 mL, intravenous, As needed, line care, Starting on Thu05/04/23 at 1120, Preprocedure (RAD), Prior to and following infusion and between multiple consecutive infusions: sodium chloride 0.9 % injection sodium chloride 0.9 % injection 3 mL 3 mL, intravenous, Every 12 hours scheduled, First dose on Thu05/04/23 at 2100, Preprocedure (RAD), Peripheral Intravenous Catheter and Rapid Infusion Catheter, when no infusion to maintain patency sodium chloride 0.9 % injection 3 mL 3 mL, intravenous, As needed, line care, Starting on Thu05/04/23 at 1120, Preprocedure (RAD), Prior to and following infusion and between multiple consecutive infusions: sodium chloride 0.9 % injection sodium chloride 0.9 % injection 3 mL 3 mL, intravenous, Every 12 hours scheduled, First dose on Thu05/04/23 at 2100, Preprocedure (RAD), Peripheral Intravenous Catheter and Rapid Infusion Catheter, when no infusion to maintain patency sodium chloride 0.9 % injection 3 mL 3 mL, intravenous, As needed, line care, Starting on Thu05/04/23 at 1119, Pre-Op, Prior to and following infusion and between multiple consecutive infusions thiamine injection 200 mg (VITAMIN B1) 200 mg, intravenous, Once, On Thu05/04/23 at 1145, For 1 dose, Preprocedure (RAD) Given 05/04/2023 12:05 PM AIRCRAFT DETAIL DRAFTSPERSON 200 mg documented in this encounter Active and Recently Administered Medications Times are shown in AIRCRAFT DETAIL DRAFTSPERSON. Scheduled Medication Order 05/02/2023 05/03/2023 05/04/2023 acetaminophen injection 1,000 mg (COMPLETED) 1,000 mg, intravenous, at 400 mL/hr, Administer over 15 Minutes, Once, On Thu05/04/23 at 1415, For 1 dose, Restriction Criteria (Pharmacy will review and approve if criteria met): Unable to take or tolerate medications administered via the enteral route or orally (not just NPO) 1353 (New Bag - Prov ider: Jazmin Mandujano R.N.) ceFAZolin injection 2 g (ANCEF) (COMPLETED) 2 g, intravenous, Once, On Thu05/04/23 at 1145, For 1 dose, Preprocedure (RAD), If needed, reconstitute vial per package insert instructions. See IVAG for administration guidelines., Indications: Prophylaxis, surgical 1141 (Given - Provid er: Jenelle Ovalles R.N.) D5W and NaCl 0.45 % bolus 1,000 mL (COMPLETED) 1,000 mL, intravenous, at 333 mL/hr, Administer over 3 Hours, Once, On Thu05/04/23 at 1145, For 1 dose, Preprocedure (RAD) 1207 (New Bag - Prov ider: Jenelle Ovalles RFcoNFco)1336 (Anesthesia Volume Adjustment - Provider: Jayy Dimas APRN, BRIDGE EXPERT, DNAP) sodium chloride 0.9 % injection 3 mL 3 mL, intravenous, Every 12 hours scheduled, First dose on Thu05/04/23 at 2100, Preprocedure (RAD), Peripheral Intravenous Catheter and Rapid Infusion Catheter, when no infusion to maintain patency sodium chloride 0.9 % injection 3 mL 3 mL, intravenous, Every 12 hours scheduled, First dose on Thu05/04/23 at 2100, Preprocedure (RAD), Peripheral Intravenous Catheter and Rapid Infusion Catheter, when no infusion to maintain patency thiamine injection 100 mg (VITAMIN B1) 100 mg, intravenous, Daily, First dose on Thu05/05/23 at 0900, Pre-Op thiamine injection 200 mg (VITAMIN B1) (COMPLETED) 200 mg, intravenous, Once, On Thu05/04/23 at 1145, For 1 dose, Preprocedure (RAD) 1205 (Given - Provid er: Jenelle Ovalles R.N.) PRN Medication Order 05/02/2023 05/03/2023 05/04/2023 iohexoL 300 mg iodine/mL solution (OMNIPAQUE) (CANCELED) As needed, Starting on Thu05/04/23 at 1335, Intra-Op 1335 (Given - Provid er: Carlito Chaudhry M.D.) lidocaine-sodium bicarbonate (buffered) 0.9%-8.4% injection (CANCELED) infiltration, As needed, Starting on Thu05/04/23 at 1335, Intra-Op 1335 (Given - Provid er: Carlito Chaudhry M.D.) ondansetron (PF) injection 4 mg (ZOFRAN) 4 mg, intravenous, Every 6 hours PRN, vomiting, nausea, Starting on Thu05/04/23 at 1345, Reassess for nausea or vomiting after at least 10 minutes. If nausea or vomiting persists administer next ordered antiemetic medications (order for antiemetic medication administration ondansetron then prochlorperazine). prochlorperazine injection 5 mg (COMPAZINE) 5 mg, intravenous, Every 6 hours PRN, nausea, vomiting, Starting on Thu05/04/23 at 1345, RASS must be -2 or higher to administer. Reassess for nausea or vomiting after at least 10 minutes. If nausea or vomiting persists administer next ordered antiemetic medications (order for antiemetic medication administration ondansetron then prochlorperazine) sodium chloride 0.9 % injection 10 mL 10 mL, intravenous, As needed, line care, Starting on Thu05/04/23 at 1120, Preprocedure (RAD), Peripheral Intravenous Catheter and Rapid Infusion Catheter, prior to blood sampling, post blood transfusion or post blood sampling sodium chloride 0.9 % injection 10 mL 10 mL, intravenous, As needed, line care, Starting on Thu05/04/23 at 1120, Preprocedure (RAD), Peripheral Intravenous Catheter and Rapid Infusion Catheter, prior to blood sampling, post blood transfusion or post blood sampling sodium chloride 0.9 % injection 3 mL 3 mL, intravenous, As needed, line care, Starting on Thu05/04/23 at 1120, Preprocedure (RAD), Prior to and following infusion and between multiple consecutive infusions: sodium chloride 0.9 % injection sodium chloride 0.9 % injection 3 mL 3 mL, intravenous, As needed, line care, Starting on Thu05/04/23 at 1120, Preprocedure (RAD), Prior to and following infusion and between multiple consecutive infusions: sodium chloride 0.9 % injection sodium chloride 0.9 % injection 3 mL 3 mL, intravenous, As needed, line care, Starting on Thu05/04/23 at 1119, Pre-Op, Prior to and following infusion and between multiple consecutive infusions documented in this encounter
--- OUTSIDE RECORDS SUMMARY | 2023-05-06 10:44 | XMS_ITS | Encounter Summary ---
Author Name Unknown Organization [facility] Address [address] [place] [address] Care Team Providers Care Remote Broadcast Engineer Name Role Phone Unavailable Primary Care Provider Unavailabl e Encounter Details Date Type Department Care Team (Late st Contact Info) Description 04/30/2023 Clinical Communication Division of General Internal Medicine in [place], [place] [address] [place] [phone] Jihan Rivas, R.N. [address] [place] [phone] Social History Tobacco Use Types Packs/Day Years [...] your living situation today? I have a [facility] place to live 03/01/2023 Sex and Gender Information Value Date Recorded Sex Assigned at Male 03/01/2023 1:25 PM STEAMBOAT PILOT Gender Identity Male 03/01/2023 1:25 PM STEAMBOAT PILOT Sexual Orientation Not on file documented as of this encounter Miscellaneous Notes * Telephone Encounter - Jihan Rivas R.N. - 04/30/2023 10:41 AM STEAMBOAT PILOT ----- Message from Ramandeep Sanz R.N. sent at 04/30/2023 8:41 AM STEAMBOAT PILOT ----- Regarding: RE: Sinan Franky! Just spoke with Tad this morning and the last dose of his Xarelto that he took was on so he should be good for his procedure on Thursday. Thanks! [facility] [place] ----- Message ----- From: Lauren Hernandez M.D. Sent: 04/29/2023 5:01 PM STEAMBOAT PILOT To: Ramandeep Sanz R.N.; # Subject: RE: Xarelto Nevermind! It's been moved up. We will call him tomorrow and tell him to stop 4 days before the procedure!!! THANK YOU!!!! ----- Message ----- From: Jihan Rivas R.N. Sent: 04/29/2023 4:11 PM STEAMBOAT PILOT To: Lauren Hernandez M.D. Subject: Xarelto Hi Dr. Hernandez, We received your order for G tube placement on Mr. Roland. It looks like he is taking Xarelto, is heable to hold this for 4 days prior to the tube placement? Thank you, Jihan Rivas RN [facility] [phone] MBOAT PILOT documented in this encounter Plan of Treatment Upcoming Encounters Date Type Department Care Team (Late st Contact Info) Description 05/07/2023 8:00 AM STEAMBOAT PILOT Appointment Department of Radiation Oncology in [address] [phone] Lauren Hernandez M.D. [address] [place] [phone] 05/07/2023 10:00 AM STEAMBOAT PILOT Virtual Visit Division of Endocrinology in [place], [place] [address] [place] [phone] Kendra Tinsley, PATRICE, C.N.P. [address] [place] [phone] 05/08/2023 8:00 AM STEAMBOAT PILOT Appointment Department of Radiation Oncology in [address] [phone] Lauren Hernandez M.D. [address] [place] [phone] 05/11/2023 8:15 AM STEAMBOAT PILOT Appointment Department of Radiation Oncology in [address] [phone] Lauren Hernandez M.D. [address] [place] [phone] documented as of this encounter Visit Diagnoses Not on filedocumented in this encounter
--- OUTSIDE RECORDS SUMMARY | 2023-05-06 10:44 | XMS_ITS | Encounter Summary ---
Author Name Unknown Organization [facility] Address [address] [place] [address] Care Team Providers Care Psychology Intern Name Role Phone Unavailable Primary Care Provider Unavailabl e Reason for Visit * Radiation Therapy (Routine) - Authorized Specialty Diagnoses / Procedures Referred By Contac t Referred To Contact Diagnoses Malignant Neoplasm Of Oropharynx (HCC) Procedures Prior Auth Rad Tx [place] IMRT COMPLEX IMRT Lauren Hernandez M.D. [address] [place] [phone] [facility] Radiation Oncology at [place] [address] [place] [phone] Referral ID Status Reason Start Date Expiration Date V isits Requested Visits Authorized [id number] Authorized 03/23/2023 03/11/2024 35 35 Encounter Details Date Type Department Care Team (Late st Contact Info) Description 05/04/2023 7:50 AM [facility] Hospital Encounter Department of Radiation Oncology in [place], [place] [address] [place] [phone] Lauren Hernandez M.D. [address] [place] [phone] Social History Tobacco Use Types Packs/Day Years [...] your living situation today? I have a [facility] place to live 03/01/2023 Sex and Gender Information Value Date Recorded Sex Assigned at Male 03/01/2023 1:25 PM SILVERING APPLICATOR Gender Identity Male 03/01/2023 1:25 PM SILVERING APPLICATOR Sexual Orientation Not on file documented as of this encounter Plan of Treatment Upcoming Encounters Date Type Department Care Team (Late st Contact Info) Description 05/07/2023 8:00 AM SILVERING APPLICATOR Appointment Department of Radiation Oncology in [place], [place] [address] [place] [phone] Lauren Hernandez M.D. 200 [place] [phone] 05/07/2023 10:00 AM SILVERING APPLICATOR Virtual Visit Division of Endocrinology in [place], [place] [address] [place] [phone] Kendra Tinsley APRN, C.N.P. [address] [place] [phone] 05/08/2023 8:00 AM SILVERING APPLICATOR Appointment Department of Radiation Oncology in [place], [place] [address] [place] [phone] Lauren Hernandez M.D. [address] [place] [phone] 05/11/2023 8:15 AM SILVERING APPLICATOR Appointment Department of Radiation Oncology in [place], [place] [address] [place] [phone] Lauren Hernandez M.D. [address] [place] [phone] documented as of this encounter Visit Diagnoses Not on filedocumented in this encounter
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
--- OUTSIDE RECORDS SUMMARY | 2023-05-06 10:44 | XMS_ITS | Encounter Summary ---
Author Name Unknown Organization [facility] Address [address] [place] [address] Care Team Providers Care Clerk Typist Name Role Phone Unavailable Primary Care Provider Unavailabl e Reason for Visit * Reason Onset Date Comments Procedure 04/29/2023 G tube placement Encounter Details Date Type Department Care Team (Latest Contact Info) Description 04/29/2023 Clinical Communication Department of Radiology in [place], [place] [address] [place] [phone] Tony Lujan, R.N. [address] [place] [phone] Procedure (G tube placement) Social History Tobacco Use Types Packs/Day Years [...] your living situation today? I have a [facility] place to live 03/01/2023 Sex and Gender Information Value Date Recorded Sex Assigned at Male 03/01/2023 1:25 PM MANUFACTURERS AGENT Gender Identity Male 03/01/2023 1:25 PM MANUFACTURERS AGENT Sexual Orientation Not on file documented as of this encounter Miscellaneous Notes * Telephone Encounter - Tony Lujan, R.N. - 04/29/2023 3:56 PM MANUFACTURERS AGENT We received a request from the HEN team to schedule Mr. Roland for a G tube placement. We have the patient scheduled to undergo this procedure with Dr. Chaudhry at [facility], Main floor Moreno Ortiz MD on 05/04/2023 as requested. Patient is on Xarelto. We have asked the HEN team to manage this. He should hold for 3 days prior to the procedure per Dr. Chaudhry. Patient is not diabetic. This will be an outpatient procedure and anesthesia will be involved. The endo desk will make patient aware of this appointment/procedure. Labs: 03/02/2023, which may be reviewed in the patient's EMR. ECG: To be completed prior to the procedure. Order is in place. FACTURERS AGENT documented in this encounter Plan of Treatment Upcoming Encounters Date Type Department Care Team (Late st Contact Info) Description 05/07/2023 8:00 AM MANUFACTURERS AGENT Appointment Department of Radiation Oncology in [place], [place] [address] [place] [phone] Lauren Hernandez M.D. [address] [place] [phone] 05/07/2023 10:00 AM MANUFACTURERS AGENT Virtual Visit Division of Endocrinology in [place], [place] [address] [place] [phone] Kendra Tinsley APRN, C.N.P. [address] [place] [phone] 05/08/2023 8:00 AM MANUFACTURERS AGENT Appointment Department of Radiation Oncology in [place], [place] [address] [place] [phone] Lauren Hernandez M.D. [address] [place] [phone] 05/11/2023 8:15 AM MANUFACTURERS AGENT Appointment Department of Radiation Oncology in [place], [place] [address] [place] [phone] Lauren Hernandez M.D. [address] [place] [phone] documented as of this encounter Visit Diagnoses Not on filedocumented in this encounter
--- OUTSIDE RECORDS SUMMARY | 2023-05-06 10:44 | XMS_ITS | Encounter Summary ---
Author Name Unknown Organization [facility] Address [address] [place] [address] Care Team Providers Care Hvac Controls Technician Name Role Phone Unavailable Primary Care Provider Unavailabl e Reason for Visit * Auth/Cert (Routine) Specialty Diagnoses / Procedures Referred By Diamond t Referred To Contact Diagnoses Malignant Neoplasm Of Tonsil (HCC) Procedures IR GASTROSTOMY TUBE PLACEMENT Referral ID Status Reason Start Date Expiration Date Visits Re quested Visits Authorized [id number] 1 1 Encounter Details Date Type Department Care Team (Late st Contact Info) Description 05/04/2023 12:38 PM CALL OUT OPERATOR Anesthesia Event Department of Radiology in [place], [place] [address] [place] [phone] Jayy Dimas APRN, CRNA, DNAP [address] [place] [phone] Michelet Adhikari APRN, CRNA, DNAP [address] [place] [phone] Anesthesia Record Procedure Summary Procedure Name Responsible Anesthesiologist Anesthesia Start Time Anesthesia Stop Time IR GASTROSTOMY TUBE PLACEMENT Jayy Dimas APRN, CRNA, DNAP 05/04/23 1238 05/04/23 1343 Events Date Time Event Comment 05/04/2023 1238 An Start Machine/Equipme nt Checked Infection Precautions Followed Procedure/Site Verified NPO Status Verified Supine Standard ASA Monitors Applied 1242 Turnover to Proceduralist 1245 Anesthesia Time Out 1313 Proc Start 1331 Proc Fin 1334 Turnover to ANE Staff 1335 an stop data 1343 An End I completed my handoff to the receiving staff during which we 1. Identified the patient 2. Identified the responsible provider 3. Reviewed the pertinent medical history 4. Discussed the surgical course 5. Reviewed intra-op anesthesia management and issues during anesthesia 6. Set expectations for post-procedure period 7. Allowed opportunity for questions and acknowledgement of understanding. Meds Name Total lidocaine 2% (mg) injection 100 mg ondansetron PF 4 mg/2 mL injection 4 mg propofol 10 mg/mL infusion 104.45 mg remimazolam 2.5 mg/mL injection 12 mg D5W and NaCl 0.45 % bolus 1,000 mL Canno t be calculated glucagon 1 mg/mL injection 0.5 mg * Agents No agents on file. * Blood No blood administrations on file. Lines, Drains, and Airways Type Details Placement Removal NG/OG Tube 05/04/23; 1331; Jose rostomy (Disc at 5); Yes; Yes; 5 mL; 16 Fr; Quadrant (abdomen), Upper; Small bore (ENFit??) 05/04/23 1331 by Gabbie Piedra, R.N. Peripheral IV Placement Date: 12/18; Placement Time: 1203; Catheter Size: 20 G; Orientation: Lower, Posterior, Right; Location: Forearm; Site Prep: Chlorhexidine (Preferred); Technique: Anatomical landmarks; Inserted by: trace; Insertion Attempts: 1; Removal Date: 05/04/23; Removal Time: 1546; Removal Reason: Completion of therapy 05/04/23 1203 by Katey Rogers 05/04/23 1546 by Jazmin Mandujano, R.N. documented in this encounter Social History Tobacco Use Types Packs/Day Years [...] your living situation today? I have a [facility] place to live 03/01/2023 Sex and Gender Information Value Date Recorded Sex Assigned at Male 03/01/2023 1:25 PM CALL OUT OPERATOR Gender Identity Male 03/01/2023 1:25 PM CALL OUT OPERATOR Sexual Orientation Not on file documented as of this encounter OR Notes * Anesthesia Postprocedure Evaluation - Jayy Dimas, TRAVEL RN, INSOLE AND OUTSOLE PREPARER, DNAP - 05/04/2023 1:44 PM CST Patient: Tad Roland Procedure Summary Date: 05/04/23 Room / Location: Department of Radiology in [place], [place] Anesthesia Start: 1238 Anesthesia Stop: 1343 Procedure: IR GASTROSTOMY TUBE PLACEMENT Diagnosis: Malignant Neoplasm Of Tonsil (HCC) Malignant Neoplasm Of Tonsil (HCC) (Pt receiving H&N radiation and chemo in [place], losing weight, wants a PEG tube) Scheduled Providers: Carlito Chaudhry M.D.; Niko Quintanilla M.D. Responsible Provider: Jayy Dimas APRN, CRNA, DNAP Anesthesia Type: MAC ASA Status: 3 Anesthesia Type: MAC Last vitals Vitals Value Taken Time BP Temp Pulse 72 05/04/23 1344 Resp SpO2 93 % 05/04/23 1344 Vitals shown include unfiled device data. Please reference Vitals flowsheet for most recent vital signs. Anesthesia Post Evaluation Patient Disposition: dismissal Cardiovascular status: hemodynamics (HR & BP) acceptable Respiratory status: patent airway with spontaneous effort Temperature: normothermic Oxygen requirements: room air Level of consciousness: awake Pain score: pain adequately controlled and/or at baseline Post Op nausea/vomiting: none Hydration status: euvolemic OUT OPERATOR * Anesthesia Preprocedure Evaluation - Woodrow Baugh M.D. - 05/04/2023 12:25 PM CST Preprocedure Anesthesia & H&P Assessment Procedure Summary Date/Time: 05/04/23 1230 Scheduled providers: Carlito Chaudhry M.D.; Niko Quintanilla M.D. Procedure: IR GASTROSTOMY TUBE PLACEMENT Diagnosis: Malignant Neoplasm Of Tonsil (HCC) [C09.9] Malignant Neoplasm Of Tonsil (HCC) [C09.9] Indications: Pt receiving H&N radiation and chemo in [place], losing weight, wants a PEG tube Location: Department of Radiology in [place], [place] Pertinent components of the patient's history including current problem list, medical history, surgical history, family history, social history, medications and allergies were reviewed. Present illness and pre-op diagnosis were confirmed. The planned surgery / procedure was verified with the patient / legal guardian. The patient's general health condition remains unchanged RELEVANT COMORBID CONDITIONS ONC (+) Malignant Neoplasm Of Tonsil (HCC) OBJECTIVE PHYSICAL EXAMINATION Airway (HEENT) oral mucosa slightly dry. No visible sores. Mallampati: II Facies (pediatrics): normal Pre-existing airway present Cardiovascular Rhythm: Regular Cardiovascular Assessment: cardiovascular normal Pulmonary Pulmonary Assessment: Clear General / Constitutional Constitutional Assessment: Normal ASSESSMENT / PLAN ANESTHESIA PLAN ASA: 3 Anesthesia Plan: general Patient seen and allergies reviewed, anesthesia plan and risks discussed directly with patient /legal guardian or through an laborer plumbing. Risks/Benefits/Alternatives of Blood transfusion discussed with patient / legal guardian, includingan opportunity to ask questions and/or decline some or all transfusion therapies. The patient / legal guardian consented to the use of all blood products, as deemed medically necessary Approval to Proceed: approved for anesthesia OUT OPERATOR documented in this encounter Plan of Treatment Upcoming Encounters Date Type Department Care Team (Late st Contact Info) Description 05/07/2023 8:00 AM CALL OUT OPERATOR Appointment Department of Radiation Oncology in [address] [phone] Lauren Hernandez M.D. [address] [place] [phone] 05/07/2023 10:00 AM CALL OUT OPERATOR Virtual Visit Division of Endocrinology in [place], [place] [address] [place] [phone] Kendra Tinsley APRN, C.N.P. [address] [place] [phone] 05/08/2023 8:00 AM CALL OUT OPERATOR Appointment Department of Radiation Oncology in [address] [phone] Lauren Hernandez M.D. [address] [place] [phone] 05/11/2023 8:15 AM CALL OUT OPERATOR Appointment Department of Radiation Oncology in [address] [phone] Lauren Hernandez M.D. [address] [place] [phone] documented as of this encounter Visit Diagnoses Not on filedocumented in this encounter Administered Medications Inactive Administered Medications - up to 3 most recent administrations Medication Order MAR Action Action Date Dose Rate Site glucagon injection (GlucaGen) intravenous, As needed, Starting on Thu05/04/23 at 1313, Anesthesia Intra-op Given 05/04/2023 1:13 PM CALL OUT OPERATOR 0.5 mg lidocaine (PF) (cardiac) injection intravenous, As needed, Starting on Thu05/04/23 at 1244, Anesthesia Intra-op Given 05/04/2023 12:44 PM CALL OUT OPERATOR 100 mg ondansetron (PF) injection (ZOFRAN) intravenous, As needed, Starting on Thu05/04/23 at 1242, Anesthesia Intra-op Given 05/04/2023 12:42 PM CALL OUT OPERATOR 4 mg propofol 10 mg/mL infusion (DIPRIVAN) intravenous, Continuous Infusion: Per Instructions PRN, Starting on Thu05/04/23 at 1251, Anesthesia Intra-op Rate/Dose Change 05/04/2023 1:03 PM CALL OUT OPERATOR 50 mcg/kg/min 32.64 mL/hr New Bag 05/04/2023 12:51 PM CALL OUT OPERATOR 30 mcg/kg/min 19.584 mL /hr remimazolam injection (BYFAVO) intravenous, As needed, Starting on Thu05/04/23 at 1250, Anesthesia Intra-op Given 05/04/2023 1:25 PM CALL OUT OPERATOR 2 mg Given 05/04/2023 1:08 PM CALL OUT OPERATOR 2 mg Given 05/04/2023 12:59 PM CALL OUT OPERATOR 1 mg documented in this encounter
--- OUTSIDE RECORDS SUMMARY | 2023-05-06 10:44 | XMS_ITS | Encounter Summary ---
Author Name Unknown Organization [facility] Address [address] [place] [address] Care Team Providers Care Instructional Writer Name Role Phone Unavailable Primary Care Provider Unavailabl e Reason for Visit * Outpatient (Routine) - Closed Specialty Diagnoses / Procedures Referred By Diamond t Referred To Contact Nutrition Diagnoses Malignant Neoplasm Of Tonsil (HCC) Lauren Hernandez M.D. [address] [place] [phone] [facility] Referral ID Status Reason Start Date Expiration Date Visits Re quested Visits Authorized [id number] Closed 04/29/2023 04/28/2024 1 1 Encounter Details Date Type Department Care Team (Latest Contact Info) Description 05/01/2023 11:00 AM CERTIFIED TEACHER ASSISTANT Clinical Support Department of Nutrition and Diabetes Education in [place], [place] [address] [place] [phone] Lauren Hernandez M.D. [address] [place] [phone] Eduarda Rosas M.S., RDN, LD [address] [place] [phone] Malignant Neoplasm Of Oropharynx (HCC) (Primary Dx); Malignant Neoplasm Of Tonsil (HCC); Dysphagia Oropharyngeal Phase; Dietary Counseling And Surveillance For Enteral Nutrition; Gastrostomy Status (HCC) Social History Tobacco Use Types Packs/Day [...] your living situation today? I have a [facility] place to live 03/01/2023 Sex and Gender Information Value Date Recorded Sex Assigned at Male 03/01/2023 1:25 PM CERTIFIED TEACHER ASSISTANT Gender Identity Male 03/01/2023 1:25 PM CERTIFIED TEACHER ASSISTANT Sexual Orientation Not on file documented as of this encounter Last Filed Vital Signs Vital Sign Reading Time Taken Comments Blood Pressure - - Pulse - - Temperature - - Respiratory Rate - - Oxygen Saturation - - Inhaled Oxygen Concentration - - Weight 110 kg (241 lb 13.5 oz) 05/01/2023 11:02 AM CERTIFIED TEACHER ASSISTANT Height 169.9 cm (5' 6.89) 05/01/2023 11:[address] Body Mass Index 38 05/01/2023 11:02 AM CERTIFIED TEACHER ASSISTANT documented in this encounter Progress Notes * Eduarda Rosas M.S., LLOYDN, LD - 05/01/2023 11:00 AM CST CHIEF COMPLAINT/REASON FOR VISIT Home Enteral Nutrition Assessment HISTORY OF PRESENT ILLNESS Mr. 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 Plan for G-tube placement on Thursday05/04/23. Recent hospitalization or ED visit: None The following portions of the patient's history were reviewed and updated as appropriate: allergies, family history and social history. Met with patient and his , Eva. ASSESSMENT Relevant Social and Family History Resides in [place]. Receiving treatment in [place]. Medical Tests and Procedures/Biochemical Data VFSS (03/09/23): Normal oropharyngeal swallow. Pertinent Labs No new labs to assess. Nutrition Focused Physical Findings Mouth/Espohagus/Throat: Pain is biggest barrier to getting in enough of any kind of nutrition and hydration, also has mouth sores. Also notes it's been more difficult to actually swallow Nausea/Vomiting: No vomiting, has had some nausea Bowels: Almost non-existent, last BM Thursday Hydration: Receiving IV fluids x2 last week, x2 so far Food/Nutrient Related History Oral Intake: 1 Boost VHC daily for the past couple weeks, water (~20 oz daily) - Poly Gill RDN's note on 04/23/23 indicates he was drinking up to 3 Boost VHC and seemed tohave a small amount of food at 1 meal, plus a glass of milk Food Allergies and Intolerances: None Weight History UBW: 120 kg (patient reported) 03/05/23: 119 kg 03/13/23: 122 kg (start of radiation) 04/15/23: 117 kg 05/01/23: 111 kg (home: 108.7 kg) Height: 170 cm BMI: 38.48 He has lost 9% since the start of radiation. Estimation of Nutritional Needs Calories: 9440-5802 kcals/day ([place] St Jeor - x1.39 activity factor given suspected elevated caloric needs) Protein: 89-111 grams/day (0.8-1 gram/kg) Fluid: 2250 mL/day (20 mL/kg) Assessment Summary Tad would benefit from feeding tube placement to administer nutrition and hydration. He'd like to continue to take medications orally as he can. He'd like to use a more calorically dense formula, eileen sometimes feels full even from drinking a Boost [facility]. It seems oral intake has declined most significantly since his last RDN appointment on 04/23/23. NUTRITION DIAGNOSIS Inadequate oral energy intake related to side effect of treatment as evidenced by need for enteral nutrition support. Nutrition Prescription/Recommendation Formula Type: 4 cartons Boost [facility] daily Infusion Schedule: or Water Flushes: 120 mL before and after feeds Other Flushes: Additional 800-1000 mL daily (26-32 oz) At goal, this will provide a total of: 2120 calories/day, 88 g protein/day, and 635 mL of free water/day Water flushes will provide extra fluid. Oral Program: For therapeutic purposes only INTERVENTION Education Nutrition goals, role of HEN, overview of gravity and syringe methods of feeding, supplies, DME companies, tube removal requirements Care Coordination Authorization on file to speak with DME/Infusion Company: yes DME/Infusion Company that will provide needed supplies for home: Option Care Indication for Ongoing Enteral Nutrition #Malignant Neoplasm Of Tonsil Anticipated duration of tube feedings is 3-6 months. This is the sole source of nutrition. MONITORING AND EVALUATION Nutrition parameter to monitor: Weight Desired Outcome: Halt weight loss Patient Goal(s): 1. Proceed with tube placement and initiation of tube feeding Follow-up Plan Patient is followed in [facility]: follow-up plan is to see for post feeding tubeplacement appointments and monitor and evaluate as needed. Time spent with patient (minutes): 30 IFIED TEACHER ASSISTANT documented in this encounter Plan of Treatment Upcoming Encounters Date Type Department Care Team (Late st Contact Info) Description 05/07/2023 8:00 AM CERTIFIED TEACHER ASSISTANT Appointment Department of Radiation Oncology in [address] [place] [phone] Lauren Hernandez M.D. [address] [place] [phone] 05/07/2023 10:00 AM CERTIFIED TEACHER ASSISTANT Virtual Visit Division of Endocrinology in [place], [place] [address] [place] [phone] Kendra Tinsley APRN, C.N.PFco [address] [place] [phone] 05/08/2023 8:00 AM CERTIFIED TEACHER ASSISTANT Appointment Department of Radiation Oncology in [address] [phone] Lauren Hernandez M.D. [address] [place] [phone] 05/11/2023 8:15 AM CERTIFIED TEACHER ASSISTANT Appointment Department of Radiation Oncology in [address] [phone] Lauren Hernandez M.D. [address] [place] [phone] documented as of this encounter Visit Diagnoses Diagnosis Malignant Neoplasm Of Oropharynx (HCC)- Primary Malignant Neoplasm Of Tonsil (HCC) Dysphagia Oropharyngeal Phase Dietary Counseling And Surveillance For Enteral Nutrition Gastrostomy Status (HCC) documented in this encounter
--- OUTSIDE RECORDS SUMMARY | 2023-05-06 10:44 | XMS_ITS | Encounter Summary ---
Author Name Unknown Organization [facility] Address [address] [place] [address] Care Team Providers Care Vacuum Technician Name Role Phone Unavailable Primary Care Provider Unavailabl e Encounter Details Date Type Department Care Team (Latest Contact Info) Description 04/29/2023 Clinical Communication Division of Endocrinology in [place], [place] [address] [place] [phone] Provider, Unknown Social History Tobacco Use Types Packs/Day Years [...] your living situation today? I have a [facility] place to live 03/01/2023 Sex and Gender Information Value Date Recorded Sex Assigned at Male 03/01/2023 1:25 PM WASHER ASSEMBLER Gender Identity Male 03/01/2023 1:25 PM WASHER ASSEMBLER Sexual Orientation Not on file documented as of this encounter Plan of Treatment Upcoming Encounters Date Type Department Care Team (Late st Contact Info) Description 05/07/2023 8:00 AM WASHER ASSEMBLER Appointment Department of Radiation Oncology in [place], [place] [address] [place] [phone] Lauren Hernandez M.D. [address] [place] [phone] 05/07/2023 10:00 AM WASHER ASSEMBLER Virtual Visit Division of Endocrinology in [place], [place] 200 [place] [phone] Kendra Tinsley APRN, C.N.P. [address] [place] [phone] 05/08/2023 8:00 AM WASHER ASSEMBLER Appointment Department of Radiation Oncology in [place], [place] [address] [place] [phone] Lauren Hernandez M.D. 200 [place] [phone] 05/11/2023 8:15 AM WASHER ASSEMBLER Appointment Department of Radiation Oncology in [place], [place] [address] [place] [phone] Lauren Hernandez M.D. [address] [place] [phone] documented as of this encounter Visit Diagnoses Not on filedocumented in this encounter
--- OUTSIDE RECORDS SUMMARY | 2023-05-06 10:45 | XMS_ITS | Encounter Summary ---
Author Name Unknown Organization [facility] Address [address] [place] [address] Care Team Providers Care Pharmaceutical Operator Name Role Phone Unavailable Primary Care Provider Unavailabl e Reason for Visit * Radiation Therapy (Routine) - Authorized Specialty Diagnoses / Procedures Referred By Contac t Referred To Contact Diagnoses Malignant Neoplasm Of Oropharynx (HCC) Procedures Prior Auth Rad Tx [place] IMRT COMPLEX IMRT Lauren Hernandez M.D. [address] [place] [phone] [facility] Radiation Oncology at [place] [address] [place] [phone] Referral ID Status Reason Start Date Expiration Date V isits Requested Visits Authorized [id number] Authorized 03/23/2023 03/11/2024 35 35 Encounter Details Date Type Department Care Team (Late st Contact Info) Description 04/23/2023 7:47 AM [facility] Hospital Encounter Department of Radiation Oncology in [place], [place] [address] [place] [phone] Lauren Hernandez M.D. [address] [place] [address] [phone] Social History Tobacco Use Types Packs/Day Years [...] your living situation today? I have a [facility] place to live 03/01/2023 Sex and Gender Information Value Date Recorded Sex Assigned at Male 03/01/2023 1:25 PM MANUFACTURING WEAVER Gender Identity Male 03/01/2023 1:25 PM MANUFACTURING WEAVER Sexual Orientation Not on file documented as of this encounter Plan of Treatment Upcoming Encounters Date Type Department Care Team (Late st Contact Info) Description 05/07/2023 8:00 AM MANUFACTURING WEAVER Appointment Department of Radiation Oncology in [place], [place] [address] [place] [phone] Lauren Hernandez M.D. 200 [place] [phone] 05/07/2023 10:00 AM MANUFACTURING WEAVER Virtual Visit Division of Endocrinology in [place], [place] [address] [place] [phone] Kendra Tinsley APRN, C.N.P. [address] [place] [phone] 05/08/2023 8:00 AM MANUFACTURING WEAVER Appointment Department of Radiation Oncology in [place], [place] [address] [place] [phone] Lauren Hernandez M.D. [address] [place] [phone] 05/11/2023 8:15 AM MANUFACTURING WEAVER Appointment Department of Radiation Oncology in [place], [place] [address] [place] [phone] Lauren Hernandez M.D. [address] [place] [phone] documented as of this encounter Visit Diagnoses Not on filedocumented in this encounter
--- OUTSIDE RECORDS SUMMARY | 2023-05-06 10:45 | XMS_ITS | Encounter Summary ---
Author Name Unknown Organization [facility] Address [address] [place] [address] Care Team Providers Care Timing Machine Operator Name Role Phone Unavailable Primary Care Provider Unavailabl e Reason for Visit * Radiation Therapy (Routine) - Authorized Specialty Diagnoses / Procedures Referred By Contac t Referred To Contact Diagnoses Malignant Neoplasm Of Oropharynx (HCC) Procedures Prior Auth Rad Tx [place] IMRT COMPLEX IMRT Lauren Hernandez M.D. [address] [place] [phone] [facility] Radiation Oncology at [place] [address] [place] [phone] Referral ID Status Reason Start Date Expiration Date V isits Requested Visits Authorized [id number] Authorized 03/23/2023 03/11/2024 35 35 Encounter Details Date Type Department Care Team (Late st Contact Info) Description 04/14/2023 8:26 AM [facility] Hospital Encounter Department of Radiation Oncology in [place], [place] [address] [place] [phone] Lauren Hernandez M.D. [address] [place] [address] [phone] Social History Tobacco Use Types Packs/Day Years [...] your living situation today? I have a [facility] place to live 03/01/2023 Sex and Gender Information Value Date Recorded Sex Assigned at Male 03/01/2023 1:25 PM ENTERPRISE ENGINEER Gender Identity Male 03/01/2023 1:25 PM ENTERPRISE ENGINEER Sexual Orientation Not on file documented as of this encounter Plan of Treatment Upcoming Encounters Date Type Department Care Team (Late st Contact Info) Description 05/07/2023 8:00 AM ENTERPRISE ENGINEER Appointment Department of Radiation Oncology in [place], [place] [address] [place] [phone] Lauren Hernandez M.D. 200 [place] [phone] 05/07/2023 10:00 AM ENTERPRISE ENGINEER Virtual Visit Division of Endocrinology in [place], [place] [address] [place] [phone] Kendra Tinsley APRN, C.N.P. [address] [place] [phone] 05/08/2023 8:00 AM ENTERPRISE ENGINEER Appointment Department of Radiation Oncology in [place], [place] [address] [place] [phone] Lauren Hernandez M.D. [address] [place] [phone] 05/11/2023 8:15 AM ENTERPRISE ENGINEER Appointment Department of Radiation Oncology in [place], [place] [address] [place] [phone] Lauren Hernandez M.D. [address] [place] [phone] documented as of this encounter Visit Diagnoses Not on filedocumented in this encounter
--- OUTSIDE RECORDS SUMMARY | 2023-05-06 10:45 | XMS_ITS | Encounter Summary ---
Author Name Unknown Organization [facility] Address [address] [place] [address] Care Team Providers Care Floor Service Worker Spring Name Role Phone Unavailable Primary Care Provider Unavailabl e Reason for Visit * Radiation Therapy (Routine) - Authorized Specialty Diagnoses / Procedures Referred By Contac t Referred To Contact Diagnoses Malignant Neoplasm Of Oropharynx (HCC) Procedures Prior Auth Rad Tx [place] IMRT COMPLEX IMRT Lauren Hernandez M.D. [address] [place] [phone] [facility] Radiation Oncology at [place] [address] [place] [phone] Referral ID Status Reason Start Date Expiration Date V isits Requested Visits Authorized [id number] Authorized 03/23/2023 03/11/2024 35 35 Encounter Details Date Type Department Care Team (Late st Contact Info) Description 04/28/2023 7:53 AM [facility] Encounter Department of Radiation Oncology in [place], [place] [address] [place] [phone] Lauren Hernandez M.D. [address] [place] [address] [phone] Social History Tobacco Use Types Packs/Day Years [...] your living situation today? I have a [facility] place to live 03/01/2023 Sex and Gender Information Value Date Recorded Sex Assigned at Male 03/01/2023 1:25 PM SERGING MACHINE OPERATOR Gender Identity Male 03/01/2023 1:25 PM SERGING MACHINE OPERATOR Sexual Orientation Not on file documented as of this encounter Plan of Treatment Upcoming Encounters Date Type Department Care Team (Late st Contact Info) Description 05/07/2023 8:00 AM SERGING MACHINE OPERATOR Appointment Department of Radiation Oncology in [place], [place] [address] [place] [phone] Lauren Hernandez M.D. 200 [place] [address] 05/07/2023 10:00 AM SERGING MACHINE OPERATOR Virtual Visit Division of Endocrinology in [place], [place] [address] [place] [phone] Kendra Tinsley APRN, C.N.P. [address] [place] [phone] 05/08/2023 8:00 AM SERGING MACHINE OPERATOR Appointment Department of Radiation Oncology in [place], [place] [address] [place] [phone] Lauren Hernandez M.D. [address] [place] [phone] 05/11/2023 8:15 AM SERGING MACHINE OPERATOR Appointment Department of Radiation Oncology in [place], [place] [address] [place] [phone] Lauren Hernandez M.D. [address] [place] [phone] documented as of this encounter Visit Diagnoses Not on filedocumented in this encounter
--- OUTSIDE RECORDS SUMMARY | 2023-05-06 10:45 | XMS_ITS | Encounter Summary ---
Author Name Unknown Organization [facility] Address [address] [place] [address] Care Team Providers Care Fire Prevention Captain Name Role Phone Unavailable Primary Care Provider Unavailabl e Reason for Visit * Radiation Therapy (Routine) - Authorized Specialty Diagnoses / Procedures Referred By Contac t Referred To Contact Diagnoses Malignant Neoplasm Of Oropharynx (HCC) Procedures Prior Auth Rad Tx [place] IMRT COMPLEX IMRT Lauren Hernandez M.D. [address] [place] [phone] [facility] Radiation Oncology at [place] [address] [place] [phone] Referral ID Status Reason Start Date Expiration Date V isits Requested Visits Authorized [id number] Authorized 03/23/2023 03/11/2024 35 35 Encounter Details Date Type Department Care Team (Late st Contact Info) Description 04/24/2023 7:54 AM [email or web address] Hospital Encounter Department of Radiation Oncology in [place], [place] [address] [place] [phone] Lauren Hernandez M.D. [address] [place] [address] [phone] Social History Tobacco Use Types Packs/Day Years [...] your living situation today? I have a [facility] place to live 03/01/2023 Sex and Gender Information Value Date Recorded Sex Assigned at Male 03/01/2023 1:25 PM METERMAN Gender Identity Male 03/01/2023 1:25 PM METERMAN Sexual Orientation Not on file documented as of this encounter Plan of Treatment Upcoming Encounters Date Type Department Care Team (Late st Contact Info) Description 05/07/2023 8:00 AM METERMAN Appointment Department of Radiation Oncology in [place], [place] [address] [place] [phone] Lauren Hernandez M.D. 200 [place] [address] 05/07/2023 10:00 AM METERMAN Virtual Visit Division of Endocrinology in [place], [place] [address] [place] [address] Kendra Tinsley APRN, C.N.P. [address] [place] [phone] 05/08/2023 8:00 AM METERMAN Appointment Department of Radiation Oncology in [place], [place] [address] [place] [phone] Lauren Hernandez M.D. [address] [place] [phone] 05/11/2023 8:15 AM METERMAN Appointment Department of Radiation Oncology in [place], [place] [address] [place] [phone] Lauren Hernandez M.D. [address] [place] [phone] documented as of this encounter Visit Diagnoses Not on filedocumented in this encounter
--- OUTSIDE RECORDS SUMMARY | 2023-05-06 10:45 | XMS_ITS | Encounter Summary ---
Author Name Unknown Organization [facility] Address [address] [place] [address] Care Team Providers Care Station Repairer Name Role Phone Unavailable Primary Care Provider Unavailabl e Reason for Visit * Radiation Therapy (Routine) - Authorized Specialty Diagnoses / Procedures Referred By Contac t Referred To Contact Diagnoses Malignant Neoplasm Of Oropharynx (HCC) Procedures Prior Auth Rad Tx [place] IMRT COMPLEX IMRT Lauren Hernandez M.D. [address] [place] [phone] [facility] Radiation Oncology at [place] [address] [place] [phone] Referral ID Status Reason Start Date Expiration Date V isits Requested Visits Authorized [id number] Authorized 03/23/2023 03/11/2024 35 35 Encounter Details Date Type Department Care Team (Late st Contact Info) Description 04/22/2023 7:49 AM [facility] Hospital Encounter Department of Radiation Oncology in [place], [place] [address] [place] [phone] Lauren Hernandez M.D. [address] [place] [address] [phone] Social History Tobacco Use Types Packs/Day Years [...] your living situation today? I have a [facility] place to live 03/01/2023 Sex and Gender Information Value Date Recorded Sex Assigned at Male 03/01/2023 1:25 PM PAPER CONE GRADER Gender Identity Male 03/01/2023 1:25 PM PAPER CONE GRADER Sexual Orientation Not on file documented as of this encounter Plan of Treatment Upcoming Encounters Date Type Department Care Team (Late st Contact Info) Description 05/07/2023 8:00 AM PAPER CONE GRADER Appointment Department of Radiation Oncology in [place], [place] [address] [place] [phone] Lauren Hernandez M.D. 200 [place] [phone] 05/07/2023 10:00 AM PAPER CONE GRADER Virtual Visit Division of Endocrinology in [place], [place] [address] [place] [phone] Kendra Tinsley APRN, C.N.P. [address] [place] [phone] 05/08/2023 8:00 AM PAPER CONE GRADER Appointment Department of Radiation Oncology in [place], [place] [address] [place] [phone] Lauren Hernandez M.D. [address] [place] [phone] 05/11/2023 8:15 AM PAPER CONE GRADER Appointment Department of Radiation Oncology in [place], [place] [address] [place] [phone] Lauren Hernandez M.D. [address] [place] [phone] documented as of this encounter Visit Diagnoses Not on filedocumented in this encounter
--- OUTSIDE RECORDS SUMMARY | 2023-05-06 10:45 | XMS_ITS | Encounter Summary ---
Author Name Unknown Organization [facility] Address [address] [place] [address] Care Team Providers Care Director Of Early Childhood Name Role Phone Unavailable Primary Care Provider Unavailabl e Reason for Visit * Radiation Therapy (Routine) - Authorized Specialty Diagnoses / Procedures Referred By Contac t Referred To Contact Diagnoses Malignant Neoplasm Of Oropharynx (HCC) Procedures Prior Auth Rad Tx CT IMRT COMPLEX IMRT Lauren Hernandez M.D. [address] [place] [phone] [facility] Radiation Oncology at [place] [address] [place] [phone] Referral ID Status Reason Start Date Expiration Date V isits Requested Visits Authorized [id number] Authorized 03/23/2023 03/11/2024 35 35 Encounter Details Date Type Department Care Team (Late st Contact Info) Description 04/29/2023 7:47 AM [facility] Hospital Encounter Department of Radiation Oncology in [place], [place] [address] [place] [phone] Lauren Hernandez M.D. [address] [place] [phone] Social History Tobacco Use Types Packs/Day Years [...] your living situation today? [facility] 03/01/2023 Sex and Gender Information Value Date Recorded Sex Assigned at Male 03/01/2023 1:25 PM UTILITY PERSON Gender Identity Male 03/01/2023 1:25 PM UTILITY PERSON Sexual Orientation Not on file documented as of this encounter Plan of Treatment Upcoming Encounters Date Type Department Care Team (Late st Contact Info) Description 05/07/2023 8:00 AM UTILITY PERSON Appointment Department of Radiation Oncology in [place], [place] [address] [place] [phone] Lauren Hernandez M.D. 200 [place] [phone] 05/07/2023 10:00 AM UTILITY PERSON Virtual Visit Division of Endocrinology in [place], [place] [address] [place] [phone] Kendra Tinsley APRN, C.N.P. [address] [place] [phone] 05/08/2023 8:00 AM UTILITY PERSON Appointment Department of Radiation Oncology in [place], [place] [address] [place] [phone] Lauren Hernandez M.D. [address] [place] [phone] 05/11/2023 8:15 AM UTILITY PERSON Appointment Department of Radiation Oncology in [place], [place] [address] [place] [phone] Lauren Hernandez M.D. [address] [place] [phone] documented as of this encounter Visit Diagnoses Not on filedocumented in this encounter
--- OUTSIDE RECORDS SUMMARY | 2023-05-06 10:45 | XMS_ITS | Encounter Summary ---
Author Name Unknown Organization [facility] Address [address] [place] [address] Care Team Providers Care Rag Sorter Name Role Phone Unavailable Primary Care Provider Unavailabl e Reason for Referral * Radiation Therapy (Routine) - Authorized Specialty Diagnoses / Procedures Referred By Diamond montemayor Referred To Contact Diagnoses Malignant Neoplasm Of Oropharynx (HCC) Procedures Management Visit Lauren Hernandez M.D. 200 [place] [address] [facility] Region Referral ID Status Reason Start Date Expiration Date V isits Requested Visits Authorized [id number] Authorized 03/12/2023 03/11/2024 10 10 ING FACILITIES MANAGER Reason for Visit * Radiation Therapy (Routine) - Authorized Specialty Diagnoses / Procedures Referred By Diamond montmeayor Referred To Contact Diagnoses Malignant Neoplasm Of Oropharynx (HCC) Procedures Management Visit Lauren Hernandez M.D. 200 [place] [address] [facility] Region Referral ID Status Reason Start Date Expiration Date V isits Requested Visits Authorized [id number] Authorized 03/12/2023 03/11/2024 10 10 Encounter Details Date Type Department Care Team (Latest Contact Info) Description 04/15/2023 8:20 AM LODGING FACILITIES MANAGER - 04/15/2023 8:31 AM LODGING FACILITIES MANAGER Hospital Encounter Department of Radiation Oncology in [address] [phone] Lauren Hernandez M.D. [address] [place] [phone] Malignant Neoplasm Of Oropharynx (HCC) Social History [...] your living situation today? I have a [facility] place to live 03/01/2023 Sex and Gender Information Value Date Recorded Sex Assigned at Male 03/01/2023 1:25 PM LODGING FACILITIES MANAGER Gender Identity Male 03/01/2023 1:25 PM LODGING FACILITIES MANAGER Sexual Orientation Not on file documented as of this encounter Last Filed Vital Signs Vital Sign Reading Time Taken Comments Blood Pressure 115/65 04/15/2023 8:54 AM LODGING FACILITIES MANAGER Pulse 58 04/15/2023 8:54 AM LODGING FACILITIES MANAGER Temperature 36.2 ??C (97.1 ??F) 04/15/2023 8:54 AM CS T Respiratory Rate - - Oxygen Saturation - - Inhaled Oxygen Concentration - - Weight 117 kg (258 lb 9.6 oz) 04/15/2023 8:54 AM LODGING FACILITIES MANAGER Height - - Body Mass Index 40.59 03/26/2023 9:06 AM LODGING FACILITIES MANAGER documented in this encounter Medications at Time [...] (SYNTHROID, LEVOTHROID) 125 mcg tablet 0 02/25/2023 ondansetron (ZOFRAN) 4 mg tablet Take 4 mg by mouth. 0 03/17/2023 prochlorperazine (COMPAZINE) 5 mg tablet Take 5 mg by mouth every 8 (eight) hours as needed for nausea or vomiting. 0 03/17/2023 rivaroxaban (XARELTO) 20 mg tablet rivaroxaban 20 mg oral tablet Start Date: 02/14/21 Status: Ordered 0 11/25/2016 folic acid/multivit-min/lute in (CENTRUM SILVER ORAL) Take 1 tablet by mouth daily. 0 03/08/2011 04/22/2023 levothyroxine sodium (TIROSINT) 125 mcg capsule 0 09/24/2022 04/22/2023 documented as of this encounter Progress Notes * Lauren Hernandez M.D. - 04/15/2023 8:45 AM CST ATTESTATION FOR MANAGEMENT VISIT I saw and evaluated the patient and participated in the zhang portions of the service as noted below.I reviewed the documentation of Ms. Anita Kyle RN and agree with the findings and plan. The patient appears well on exam. We will continue with radiation as planned and monitor weekly. We discussed his weight, pain management and he is hoping to avoid a PEG tube. Lauren Hernandez M.D., 04/15/2023 SUBJECTIVE REASON FOR VISIT Evaluation for side effects while receiving radiation treatment for 1. Malignant Neoplasm Of Oropharynx (HCC) SUPERVISED BY: Lauren Hernandez M.D. HISTORY OF PRESENT ILLNESS Mr. Tad Arnoldo [place] is a 68 y.o. 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 He is receiving weekly Cisplatin under the care of Dr. Wu at [facility]. Treatment Course: 1xOpx Plan ID Fractions Dose / Fraction (cGy) Dose Treated (cGy) Dose Planned (cGy) First Treatment Last Treatment Elapsed Days F1Opx 200 3600 7000 03/23/2023 04/15/2023 Course Summary 03/23/2023 04/15/2023 23 The patient was seen and examined today with Dr. Hernandez. The patient reports 7 out of 10 pain when swallowing with caloric intake. Patient trialed Magic Mouthwash but stopped and did not find benefit. Patient was prescribed Oxycodone but notes that he doesnot feel pain relief with Oxycodone. Patient does report that he has noted pain relief with Vicodinin the past. He notices mild confusion at times with Vicodin. Patient does take Tylenol on occasion. Patient is managing dry mouth/thick secretions with frequent sips of water and baking soda rinses.Patient is applying lotion to treatment field area. Patient denies fevers, chills or new cough. Patient is only taking in 2 Very High Calorie Boosts a day that have 530 calories per container. Patient is taking in at least 60 oz of water a day. Patient does report mole on left shoulder has gotten smaller since being on chemotherapy. Patient did call to schedule Dermatology follow up. PATIENT REPORTED SYMPTOM SCREEN FATIGUE (Scale: 0 = no fatigue; 10 = worst fatigue you can imagine): 4 PAIN (Scale: 0 = no pain; 10 = worst pain you can imagine): 1-7 OVERALL QUALITY OF LIFE (Scale: 0 = as bad as can be; 10 = as good as can be): 4 OBJECTIVE BP 115/65 (BP Location: Right arm, Patient Position: Sitting, Cuff Size: Regular) Pulse (!) 58 Temp 36.2 ??C (Temporal) Wt 117 kg BMI 40.59 kg/m?? WEIGHTS 03/13/2023: 122 kg 03/26/2023: 124 kg 04/02/2023: 123 kg 04/07/2023: 120 kg 04/15/2023: 117.3 kg PHYSICAL EXAM General: Alert and oriented in no apparent distress. Skin: Brisk erythema and dryness noted lower pozo to lower subclavicular region. No desquamation orsigns of infection. Mouth: mucositis noted to uvula region. 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 Patient's weight has decreased 5 kg since starting radiation therapy. Weight has decreased by 2 kg since last week. We will send in prescription for Vicodin today to patient's preferred pharmacy. Patient will hold off on Oxycodone and trial Vicodin. Patient is to not drive while taking on pain medication. Patient notes his is able to provide support to patient while on pain medications. Patient will wait 30 minutes after taking Vicodin to work on caloric intake. Patient will increase Very High Calories Boosts to 4 a day to ensure he is getting in Dietary's recommendation of 7029-2633 calories a day. We discussed trialing smoothies and milkshakes once pain is under control. Patient is to contact our care team if Vicodin is not helping his pain or if he is not tolerating Vicodin well. We would then switch back to Oxycodone and have patient titrate to 10 mg of Oxycodone instead of [address] Hernandez reviewed constipation education with patient today. Patient is scheduled for Dieticianfollow up on April 23, 2023. Patient has Dermatology follow up appointment on July 09, 2023 at [facility]. Patient is to add Aquaphor application 1-2 times a day due to increase in dryness to treatment field area. He will continue with radiation treatment as planned. He can contact our care team with any questions or concerns. Signed by: Anita Kyle R.N. 04/15/2023 9:40 AM LODGING FACILITIES MANAGER ING FACILITIES MANAGER documented in this encounter Plan of Treatment Upcoming Encounters Date Type Department Care Team (Late st Contact Info) Description 05/07/2023 8:00 AM LODGING FACILITIES MANAGER Appointment Department of Radiation Oncology in [place], [place] [address] [place] [phone] Lauren Hernandez M.D. [address] [place] [phone] 05/07/2023 10:00 AM LODGING FACILITIES MANAGER Virtual Visit Division of Endocrinology in [place], [place] [address] [place] [phone] Kendra Tinsley APRN, C.N.P. [address] [place] [phone] 05/08/2023 8:00 AM LODGING FACILITIES MANAGER Appointment Department of Radiation Oncology in [address] [phone] Lauren Hernandez M.D. [address] [place] [phone] 05/11/2023 8:15 AM LODGING FACILITIES MANAGER Appointment Department of Radiation Oncology in [place], [place] [address] [place] [phone] Lauren Hernandez M.D. [address] [place] [phone] Scheduled Orders Name Type Priority Associated Diagnoses Orde r Schedule Management Visit Radiation Oncology Routine Malignant Neoplasm Of Oropharynx (HCC) Once for 1 Occurrences starting 04/15/2023 until 04/15/2023 documented as of this encounter Visit Diagnoses Diagnosis Malignant Neoplasm Of Oropharynx (HCC) documented in this encounter
--- OUTSIDE RECORDS SUMMARY | 2023-05-06 10:45 | XMS_ITS | Encounter Summary ---
Author Name Unknown Organization [facility] Address [address] [place] [address] Care Team Providers Care Salon Customer Experience Specialist Name Role Phone Unavailable Primary Care Provider Unavailabl e Reason for Referral * Radiation Therapy (Routine) - Authorized Specialty Diagnoses / Procedures Referred By Diamond montemayor Referred To Contact Diagnoses Malignant Neoplasm Of Oropharynx (HCC) Procedures Management Visit Lauren Hernandez M.D. 200 [place] [phone] [facility] Region Referral ID Status Reason Start Date Expiration Date V isits Requested Visits Authorized [id number] Authorized 03/12/2023 03/11/2024 10 10 OSOFT DYNAMICS MANAGER ARCHITECT Reason for Visit * Radiation Therapy (Routine) - Authorized Specialty Diagnoses / Procedures Referred By Diamond montemayor Referred To Contact Diagnoses Malignant Neoplasm Of Oropharynx (HCC) Procedures Management Visit Lauren Hernandez M.D. 200 [place] [phone] [facility] Region Referral ID Status Reason Start Date Expiration Date V isits Requested Visits Authorized [id number] Authorized 03/12/2023 03/11/2024 10 10 Encounter Details Date Type Department Care Team (Latest Contact Info) Description 04/22/2023 7:49 AM MICROSOFT DYNAMICS MANAGER ARCHITECT - 04/22/2023 9:25 AM MICROSOFT DYNAMICS MANAGER ARCHITECT Hospital Encounter Department of Radiation Oncology in [address] [phone] Lauren Hernandez M.D. 200 [place] [phone] Omari Cheney M.D. 200 [place] [phone] Malignant Neoplasm Of Oropharynx (HCC) Social History [...] your living situation today? [facility] 03/01/2023 Sex and Gender Information Value Date Recorded Sex Assigned at Male 03/01/2023 1:25 PM MICROSOFT DYNAMICS MANAGER ARCHITECT Gender Identity Male 03/01/2023 1:25 PM MICROSOFT DYNAMICS MANAGER ARCHITECT Sexual Orientation Not on file documented as of this encounter Last Filed Vital Signs Vital Sign Reading Time Taken Comments Blood Pressure 125/71 04/22/2023 8:21 AM MICROSOFT DYNAMICS MANAGER ARCHITECT Pulse 61 04/22/2023 8:21 AM MICROSOFT DYNAMICS MANAGER ARCHITECT Temperature 36.3 ??C (97.3 ??F) 04/22/2023 8:21 AM CS T Respiratory Rate - - Oxygen Saturation - - Inhaled Oxygen Concentration - - Weight 115 kg (253 lb 1.4 oz) 04/22/2023 8:21 AM MICROSOFT DYNAMICS MANAGER ARCHITECT Height - - Body Mass Index 39.72 03/26/2023 9:06 AM MICROSOFT DYNAMICS MANAGER ARCHITECT documented in this encounter Medications at Time [...] Start Date: 02/14/21 Status: Ordered 0 11/25/2016 HYDROcodone-acetamino phen (NORCO) 5-325 mg per tabletIndications:Pro longed Acute Pain/Traumatic Injury Take 2 tablets by mouth every 4 (four) hours as needed for pain Indication: Prolonged Acute Pain/Traumatic Injury. 30 tablet 0 04/17/2023 05/05/2023 documented as of this encounter Progress Notes * Omari Cheney M.D. - 04/22/2023 8:15 AM CST SUBJECTIVE REASON FOR VISIT Evaluation for side [...] under the care of Dr. Wu at [facility]. Treatment Course: 1xOpx Plan ID Fractions Dose / Fraction (cGy) Dose Treated (cGy) Dose Planned (cGy) First Treatment Last Treatment Elapsed Days F1Opx 200 4400 7000 03/23/2023 04/22/2023 30 Course Summary 03/23/2023 04/22/2023 30 The patient was seen and examined today with Dr. Hernandez. The patient reports 2 out of 10 pain when swallowing. He has recently switched to taking 1 Shelby [id number] and 1 Shelby at 1630 and then Magic Mouthwash at 1730 and feels this is helping to manage his pain better. He manages dry mouth with frequent water intake and humidifier. Patient is taking in 2-3Very High Calorie Boosts a day along with meatloaf and potatoes. He denies constipation. Patient iscompleting jaw exercises. Patient is applying Aquaphor to the treatment field area. Patient denies fevers or chills. PATIENT REPORTED SYMPTOM SCREEN FATIGUE (Scale: 0 = no fatigue; 10 = worst fatigue you can imagine): 2 PAIN (Scale: 0 = no pain; 10 = worst pain you can imagine): 2 OVERALL QUALITY OF LIFE (Scale: 0 = as bad as can be; 10 = as good as can be): 6 OBJECTIVE BP 125/71 (BP Location: Right arm, Patient Position: Sitting, Cuff Size: Regular) Pulse 61 Temp36.3 ??C (Temporal) Wt 115 kg BMI 39.72 kg/m?? WEIGHTS 03/13/2023: 122 kg 03/26/2023: 124 kg 04/02/2023: 123 kg 04/07/2023: 120 kg 04/15/2023: 117.3 kg 04/22/2023: 114.8 kg PHYSICAL EXAM General: Alert and oriented in no apparent distress. Skin: Brisk erythema and dryness noted lower neck to lower subclavicular region. No desquamation orsigns of infection. Mouth: mucositis noted to uvula region and left posterior buccal mucosa. 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 Weight has decreased by 2.5 kg since last week. Patient has been encouraged to take Shelby every 4 hours as needed for pain management to help increase caloric intake. Patient needs to increase daily intake of VHC Boosts (530calories) to at least 4 a day and increase frequency of intake of soft based foods. Patient will meet with our Mutuel Department Manager again tomorrow. Our goal is to prevent further weight loss and therefore prevent feeding tube placement. Patient will increase frequency of Aquaphor application. Patient has Dermatology follow up appointment on July 09, 2023 at [facility]. We will continue to see patient in weekly management visits through out course of radiation therapy. He will continue with radiation treatment as planned. He can contact our care team with any questions or concerns. Signed by: Anita Kyle R.N. 04/22/2023 8:48 AM MICROSOFT DYNAMICS MANAGER ARCHITECT I saw and evaluated the patient and participated in the zhang portions of the service. I reviewed thedocumentation of Anita Kyle R.N. and agree with the findings and plan. The patient appears well on exam. He is tolerating treatment well but is losing weight. He will increase his Shelby use that he can increase his oral intake. He is meeting with our dietitian tomorrow. He will continue with treatment as planned. Signed by: Omari [place] M.D. 04/22/2023 9:25 AM MICROSOFT DYNAMICS MANAGER ARCHITECT [facility] [address] [place] [phone] OSOFT DYNAMICS MANAGER ARCHITECT documented in this encounter Plan of Treatment Upcoming Encounters Date Type Department Care Team (Late st Contact Info) Description 05/07/2023 8:00 AM MICROSOFT DYNAMICS MANAGER ARCHITECT Appointment Department of Radiation Oncology in [address] [phone] Lauren Hernandez M.D. [address] [place] [phone] 05/07/2023 10:00 AM MICROSOFT DYNAMICS MANAGER ARCHITECT Virtual Visit Division of Endocrinology in [place], [place] [address] [place] [phone] Kendra Tinsley APRN, C.N.P. [address] [place] [phone] 05/08/2023 8:00 AM MICROSOFT DYNAMICS MANAGER ARCHITECT Appointment Department of Radiation Oncology in [place], [place] [address] [place] [phone] Lauren Hernandez M.D. 200 [place] [phone] 05/11/2023 8:15 AM MICROSOFT DYNAMICS MANAGER ARCHITECT Appointment Department of Radiation Oncology in [place], [place] [address] [place] [phone] Lauren Hernandez M.D. 200 [place] [phone] Scheduled Orders Name Type Priority Associated Diagnoses Orde r Schedule Management Visit Radiation Oncology Routine Malignant Neoplasm Of Oropharynx (HCC) Once for 1 Occurrences starting 04/22/2023 until 04/22/2023 documented as of this encounter Visit Diagnoses Diagnosis Malignant Neoplasm Of Oropharynx (HCC) documented in this encounter
--- OUTSIDE RECORDS SUMMARY | 2023-05-06 10:45 | XMS_ITS | Encounter Summary ---
Author Name Unknown Organization [facility] Address [address] [place] [address] Care Team Providers Care Centrifugal Separator Name Role Phone Unavailable Primary Care Provider Unavailabl e Reason for Visit * Radiation Therapy (Routine) - Authorized Specialty Diagnoses / Procedures Referred By Contac t Referred To Contact Diagnoses Malignant Neoplasm Of Oropharynx (HCC) Procedures Prior Auth Rad Tx OR IMRT COMPLEX IMRT Lauren Hernandez M.D. [address] [place] [phone] [facility] Radiation Oncology at [place] [address] [place] [phone] Referral ID Status Reason Start Date Expiration Date V isits Requested Visits Authorized [id number] Authorized 03/23/2023 03/11/2024 35 35 Encounter Details Date Type Department Care Team (Late st Contact Info) Description 04/17/2023 8:18 AM [facility] Hospital Encounter Department of Radiation Oncology in [place], [place] [address] [place] [phone] Lauren Hernandez M.D. [address] [place] [phone] Social History Tobacco Use Types Packs/Day Years [...] your living situation today? I have a [facility] place to live 03/01/2023 Sex and Gender Information Value Date Recorded Sex Assigned at Male 03/01/2023 1:25 PM MARZIPAN MAKER Gender Identity Male 03/01/2023 1:25 PM MARZIPAN MAKER Sexual Orientation Not on file documented as of this encounter Plan of Treatment Upcoming Encounters Date Type Department Care Team (Late st Contact Info) Description 05/07/2023 8:00 AM MARZIPAN MAKER Appointment Department of Radiation Oncology in [place], [place] [address] [place] [phone] Lauren Hernandez M.D. 200 [place] [phone] 05/07/2023 10:00 AM MARZIPAN MAKER Virtual Visit Division of Endocrinology in [place], [place] [address] [place] [phone] Kendra Tinsley APRN, C.N.P. [address] [place] [phone] 05/08/2023 8:00 AM MARZIPAN MAKER Appointment Department of Radiation Oncology in [place], [place] [address] [place] [phone] Lauren Hernandez M.D. [address] [place] [phone] 05/11/2023 8:15 AM MARZIPAN MAKER Appointment Department of Radiation Oncology in [place], [place] [address] [place] [phone] Lauren Hernandez M.D. [address] [place] [phone] documented as of this encounter Visit Diagnoses Not on filedocumented in this encounter
--- OUTSIDE RECORDS SUMMARY | 2023-05-06 10:45 | XMS_ITS | Encounter Summary ---
Author Name Unknown Organization [facility] Address [address] [place] [id number] Care Team Providers Care Biotech Production Specialist Name Role Phone Unavailable Primary Care Provider Unavailabl e Reason for Visit * Radiation Therapy (Routine) - Authorized Specialty Diagnoses / Procedures Referred By Contac t Referred To Contact Diagnoses Malignant Neoplasm Of Oropharynx (HCC) Procedures Prior Auth Rad Tx AR IMRT COMPLEX IMRT Lauren Hernandez M.D. [address] [place] [phone] [facility] Radiation Oncology at [place] [address] [place] [phone] Referral ID Status Reason Start Date Expiration Date V isits Requested Visits Authorized [id number] Authorized 03/23/2023 03/11/2024 35 35 Encounter Details Date Type Department Care Team (Late st Contact Info) Description 04/15/2023 8:32 AM [facility] Hospital Encounter Department of Radiation Oncology in [place], [place] [address] [place] [phone] Lauren Hernandez M.D. [address] [place] [phone] Social History Tobacco Use Types Packs/Day Years [...] your living situation today? I have a [facility] place to live 03/01/2023 Sex and Gender Information Value Date Recorded Sex Assigned at Male 03/01/2023 1:25 PM PLANT PROTECTION GUARD Gender Identity Male 03/01/2023 1:25 PM PLANT PROTECTION GUARD Sexual Orientation Not on file documented as of this encounter Plan of Treatment Upcoming Encounters Date Type Department Care Team (Late st Contact Info) Description 05/07/2023 8:00 AM PLANT PROTECTION GUARD Appointment Department of Radiation Oncology in [place], [place] [address] [place] [phone] Lauren Hernandez M.D. 200 [place] [phone] 05/07/2023 10:00 AM PLANT PROTECTION GUARD Virtual Visit Division of Endocrinology in [place], [place] [address] [place] [phone] Kendra Tinsley APRN, C.N.P. [address] [place] [phone] 05/08/2023 8:00 AM PLANT PROTECTION GUARD Appointment Department of Radiation Oncology in [place], [place] [address] [place] [phone] Lauren Hernandez M.D. [address] [place] [phone] 05/11/2023 8:15 AM PLANT PROTECTION GUARD Appointment Department of Radiation Oncology in [place], [place] [address] [place] [phone] Lauren Hernandez M.D. [address] [place] [phone] documented as of this encounter Visit Diagnoses Not on filedocumented in this encounter
--- OUTSIDE RECORDS SUMMARY | 2023-05-06 10:45 | XMS_ITS | Encounter Summary ---
Author Name Unknown Organization [facility] Address [address] [place] [address] Care Team Providers Care Medical Coding Specialist Name Role Phone Unavailable Primary Care Provider Unavailabl e Reason for Referral * Outpatient (Routine) - Authorized Specialty Diagnoses / Procedures Referred By Contac t Referred To Contact Nutrition Diagnoses Malignant Neoplasm Of Oropharynx (HCC) Ashlee oG APRN, C.N.P., D.N.P. [address] [place] [phone] [facility] Region Referral ID Status Reason Start Date Expiration Date V isits Requested Visits Authorized [id number] Authorized 03/12/2023 03/11/2024 5 5 BENDER Reason for Visit * Outpatient (Routine) - Authorized Specialty Diagnoses / Procedures Referred By Contac t Referred To Contact Nutrition Diagnoses Malignant Neoplasm Of Oropharynx (HCC) Ashlee Go APRN, C.N.P., D.N.P. [address] [place] [phone] [facility] Region Referral ID Status Reason Start Date Expiration Date V isits Requested Visits Authorized [id number] Authorized 03/12/2023 03/11/2024 5 5 Encounter Details Date Type Department Care Team (Late st Contact Info) Description 04/23/2023 8:09 AM HAND BENDER Hospital Encounter Department of Radiation Oncology in [place], [place] [address] [place] [phone] Ashlee Go APRN, C.N.P., D.N.P. [address] [place] [phone] Poly Gill, NIDA [address] [place] [address] Malignant Neoplasm Of Oropharynx (HCC) Social History [...] your living situation today? I have a [facility] place to live 03/01/2023 Sex and Gender Information Value Date Recorded Sex Assigned at Male 03/01/2023 1:25 PM HAND BENDER Gender Identity Male 03/01/2023 1:25 PM HAND BENDER Sexual Orientation Not on file documented as of this encounter Progress Notes * Poly Gill, LD - 04/23/2023 8:15 AM CST CHIEF COMPLAINT/REASON FOR VISIT Malignant Neoplasm Of Oropharynx (HCC) [C10.9] HISTORY OF PRESENT ILLNESS Mr. Roland is a 68 y.o. year old male with a left glossotonsillar mass and associated left neck adenopathy. He started radiation therapy on March 23. He is also receiving chemotherapy at [facility]. PAST MEDICAL HISTORY The medical history was reviewed today from the electronic medical record. Please see the electronic medical record for complete details of the PAST MEDICAL HISTORY. ASSESSMENT Relevant Social and Family History Mr. Roland lives with his spouse, Eva in [place]. Nutrition Focused Physical Findings Mouth/esophagus/Throat: pain manageable with medication. Dry mouth. Taste is off and creates the most challenge with eating. Bowels: managed with medication Nausea/vomiting: none Speech Pathology Dysphagia Videofluoroscopic Swallow Study (VFSS) 03/09/23: Diagnosis: Normal oropharyngeal swallow Recommendations: 1. Continue a regular diet and thin liquids 2. Pills per patient preference 3. Instruction and training in swallowing exercises, if indicated after treatment plan is determined Food/Nutrition Related History Patient attended appointment alone. Patient reports no longer eating cereal for breakfast, but rather drinks a boost very high calorie in the morning. He reports chicken strips for lunch with salad. Last night he had about 5 to 6 ounces of meatloaf with 2 small potatoes and gravy. He reports most days he drinks 3 boost very high calorie drinks which are 530 calories and 22 gramsof protein each (3 equals 1590 calories and 66 grams of protein) in addition to lunch and dinner meals. Water intake is about 60 ounces a day at this time. He occasionally has a glass of milk in addition to the supplements. He reports eating is a challenge at this time, not as much related to the pain as to the fact that the taste is off. Patient reports he will be receiving fluids at infusion tomorrow. Weight History Date: 03/26/23: Weight: 124.5 kg Height 170 cm Body mass index is 43.1 kg/m??. Patient reports UBW is approximately 120 kg (264#). 03/13/23: 122 kg - Starting weight 03/05/23: 119 kg 04/07/23: 120 kg 04/15/23: 117 kg 04/22/23: 115 kg Weight loss of 7 kg/15.4 lbs or 5.7% from start of treatment weight of 122 kg/268.4 lb to weight of115 kg/253 lbs on 04/22/23. Estimation of Nutritional Needs Weight Used for Equation Calculations: 80.4 kg (Adj. Wt.) Date: 03/13/23 Total Calorie Needs: 2780-0793 (HB basal to basal + 20%) Estimated Protein Needs: 96-104 grams per day (1.2-1.3 g/kg Adj. Wt.) Estimated Fluid Needs: 3000 ml per day (25 ml/kg actual wt.) NUTRITION DIAGNOSIS Food- and nutrition-related knowledge deficit related to cancer with chemoradiation as evidenced byneed for nutrition education to maintain weight and nutrition status during treatment Nutrition Diagnosis Reassessment: Ongoing Nutrition Prescription/Recommendation A minimum of 1900 calories, 95 grams protein and 12 cups of fluid a day. INTERVENTION Today, we reviewed principles of weight maintenance and oral intake recommendations for patients undergoing cancer treatment. Reviewed the goal of maintaining current weight (within 5% to 10%) duringcourse of treatment. Discussed this in relation to current loss of 5.7%. Again, patient desires to a void tube feeding. Encouraged him related to adequate protein, calorie and fluid intake. Reviewed and provided his calorie, protein and fluid goals. Discussed measures and scenarios for meeting his goals using handouts provided previously. Again, encouraged patient toward looking adequate nutritionlike his job or medicine. Patient reports good success when he distracts (with TV, etc) with intake. Handouts: Premier protein recipes. MONITORING AND EVALUATION: Nutrition parameter to monitor: Weight Desired Outcome: Maintain start weight 122 kg/268.4 lbs within 5 to 10% (115.9 kg/255 lbs to 109.8 kg/241.6 lbs). Patient Goal(s): 1. A minimum of 1900 calories and 95 grams of protein and 12 cups of fluid a day. 2. Supplements and high calorie/high protein foods toward meeting estimated nutrition needs. 3. Track intake to ensure meeting needs. FOLLOW UP PLAN: He will follow up in 2 weeks. RDN's contact information provided and he was encouraged to call withquestions. Time spent with patient (minutes): 15 BENDER documented in this encounter Plan of Treatment Upcoming Encounters Date Type Department Care Team (Late st Contact Info) Description 05/07/2023 8:00 AM HAND BENDER Appointment Department of Radiation Oncology in [address] [phone] Lauren Hernandez M.D. [address] [place] [phone] 05/07/2023 10:00 AM HAND BENDER Virtual Visit Division of Endocrinology in [place], [place] [address] [place] [phone] Kendra Tinsley APRN, C.N.P. [address] [place] [phone] 05/08/2023 8:00 AM HAND BENDER Appointment Department of Radiation Oncology in [address] [phone] Lauren Hernandez M.D. [address] [place] [phone] 05/11/2023 8:15 AM HAND BENDER Appointment Department of Radiation Oncology in [address] [phone] Lauren Hernandez M.D. [address] [place] [phone] Scheduled Referrals Name Type Priority Associated Diagnoses Order Schedule Nutrition - Medical nutrition therapy consult (clinic) Outpatient Referral Routine Malignant Neoplasm Of Oropharynx (HCC) Once for 1 Occurrences starting 04/23/2023 until 04/23/2023 documented as of this encounter Visit Diagnoses Diagnosis Malignant Neoplasm Of Oropharynx (HCC) documented in this encounter
--- OUTSIDE RECORDS SUMMARY | 2023-05-06 10:45 | XMS_ITS | Encounter Summary ---
Author Name Unknown Organization [facility] Address [address] [place] [address] Care Team Providers Care Dye Can Operator Name Role Phone Unavailable Primary Care Provider Unavailabl e Encounter Details Date Type Department Care Team (Late st Contact Info) Description 04/14/2023 Clinical Communication Department of Radiation Oncology in [place], [place] [address] [place] [phone] Lauren Hernandez M.D. [address] [place] [address] Social History Tobacco Use Types Packs/Day Years [...] your living situation today? I have a [facility] place to live 03/01/2023 Sex and Gender Information Value Date Recorded Sex Assigned at Male 03/01/2023 1:25 PM DIVERSITY MANAGER Gender Identity Male 03/01/2023 1:25 PM DIVERSITY MANAGER Sexual Orientation Not on file documented as of this encounter Plan of Treatment Upcoming Encounters Date Type Department Care Team (Late st Contact Info) Description 05/07/2023 8:00 AM DIVERSITY MANAGER Appointment Department of Radiation Oncology in [address] [phone] Lauren Hernandez M.D. 200 [place] [phone] 05/07/2023 10:00 AM DIVERSITY MANAGER Virtual Visit Division of Endocrinology in [place], [place] 200 [place] [phone] Kendra Tinsley APRN, C.N.P. [address] [place] [phone] 05/08/2023 8:00 AM DIVERSITY MANAGER Appointment Department of Radiation Oncology in [address] [phone] Lauren Hernandez M.D. [address] [place] [phone] 05/11/2023 8:15 AM DIVERSITY MANAGER Appointment Department of Radiation Oncology in [place], [place] [address] [place] [phone] Lauren Hernandez M.D. 200 [place] [phone] documented as of this encounter Visit Diagnoses Not on filedocumented in this encounter
--- OUTSIDE RECORDS SUMMARY | 2023-05-06 10:45 | XMS_ITS | Encounter Summary ---
Author Name Unknown Organization [facility] Address [address] [place] [address] Care Team Providers Care Turbine Attendant Name Role Phone Unavailable Primary Care Provider Unavailabl e Reason for Referral * Outpatient (Routine) - Closed Specialty Diagnoses / Procedures Referred By Diamond montemayor Referred To Contact Radiology Diagnoses Malignant Neoplasm Of Tonsil (HCC) Procedures IR Gastrostomy Tube Placement Lauren Hernandez M.D. 200 [place] [address] [facility] Referral ID Status Reason Start Date Expiration Date Visits Re quested Visits Authorized [id number] Closed 04/29/2023 04/28/2024 1 1 HETIC CLOTH BINDING CUTTER * Outpatient (Routine) - Closed Specialty Diagnoses / Procedures Referred By Diamond montemayor Referred To Contact Nutrition Diagnoses Malignant Neoplasm Of Tonsil (HCC) [place] [address] [facility] Referral ID Status Reason Start Date Expiration Date Visits Re quested Visits Authorized [id number] Closed 04/29/2023 04/28/2024 1 1 Scheduling Instructions Post - Placement HETIC CLOTH BINDING CUTTER * Specialty Diagnoses / Procedures Referred By Diamond montemayor Referred To Contact Lauren Hernandez M.D. 200 [place] [address] [facility] Referral ID Status Reason Start Date Expiration Date Visits Re quested Visits Authorized HETIC CLOTH BINDING CUTTER * Outpatient (Routine) - Closed Specialty Diagnoses / Procedures Referred By Contac t Referred To Contact Nutrition Diagnoses Malignant Neoplasm Of Tonsil (HCC) [place] [address] [facility] Referral ID Status Reason Start Date Expiration Date Visits Re quested Visits Authorized [id number] Closed 04/29/2023 04/28/2024 1 1 Scheduling Instructions Pre-Placement HETIC CLOTH BINDING CUTTER * Outpatient (Routine) - Closed Specialty Diagnoses / Procedures Referred By Diamond montemayor Referred To Contact Endocrinology Diagnoses Malignant Neoplasm Of Tonsil (HCC) [place] [address] [facility] Referral ID Status Reason Start Date Expiration Date Visits Re quested Visits Authorized [id number] Closed 04/29/2023 04/28/2024 1 1 HETIC CLOTH BINDING CUTTER * Specialty Diagnoses / Procedures Referred By Diamond montemayor Referred To Contact [place] [address] [facility] Referral ID Status Reason Start Date Expiration Date Visits Re quested Visits Authorized HETIC CLOTH BINDING CUTTER * Radiation Therapy (Routine) - Authorized Specialty Diagnoses / Procedures Referred By Diamond montemayor Referred To Contact Diagnoses Malignant Neoplasm Of Oropharynx (HCC) Procedures Management [place] [address] [facility] Region Referral ID Status Reason Start Date Expiration Date V isits Requested Visits Authorized [id number] Authorized 03/12/2023 03/11/2024 10 10 HETIC CLOTH BINDING CUTTER Reason for Visit * Radiation Therapy (Routine) - Authorized Specialty Diagnoses / Procedures Referred By Diamond t Referred To Contact Diagnoses Malignant Neoplasm Of Oropharynx (HCC) Procedures Management Visit Lauren Hernandez M.D. [address] [place] [address] [facility] Region Referral ID Status Reason Start Date Expiration Date V isits Requested Visits Authorized [id number] Authorized 03/12/2023 03/11/2024 10 10 Encounter Details Date Type Department Care Team (Latest Contact Info) Description 04/29/2023 7:47 AM SYNTHETIC CLOTH BINDING CUTTER - 04/29/2023 12:51 PM SYNTHETIC CLOTH BINDING CUTTER Hospital Encounter Department of Radiation Oncology in [place], [place] [address] [place] [address] Lauren Hernandez M.D. [address] [place] [address] Malignant Neoplasm Of Tonsil (HCC) (Primary Dx); Malignant Neoplasm Of Oropharynx (HCC) Social History [...] your living situation today? I have a [facility] place to live 03/01/2023 Sex and Gender Information Value Date Recorded Sex Assigned at Male 03/01/2023 1:25 PM SYNTHETIC CLOTH BINDING CUTTER Gender Identity Male 03/01/2023 1:25 PM SYNTHETIC CLOTH BINDING CUTTER Sexual Orientation Not on file documented as of this encounter Last Filed Vital Signs Vital Sign Reading Time Taken Comments Blood Pressure 123/70 04/29/2023 8:30 AM SYNTHETIC CLOTH BINDING CUTTER Pulse 61 04/29/2023 8:30 AM SYNTHETIC CLOTH BINDING CUTTER Temperature 36.3 ??C (97.4 ??F) 04/29/2023 8:30 AM CS T Respiratory Rate - - Oxygen Saturation - - Inhaled Oxygen Concentration - - Weight 111 kg (245 lb 2.4 oz) 04/29/2023 8:30 AM SYNTHETIC CLOTH BINDING CUTTER Height - - Body Mass Index 38.48 03/26/2023 9:06 AM SYNTHETIC CLOTH BINDING CUTTER documented in this encounter Medications at Time [...] Progress Notes * Lauren Hernandez M.D. - 04/29/2023 8:15 AM CST ATTESTATION FOR MANAGEMENT VISIT I saw and evaluated the patient and participated in the zhang portions of the service as noted below.I reviewed the documentation of Ms. Ramandeep Sanz RN and agree with the findings and plan. Thepatient appears well on exam. We will continue with radiation as planned and monitor weekly. He is willing to get a PEG tube. We will see if IR or GI can put it in sooner. We will hold on his BID if they are able to put it in this week. We will start Fentanyl and provided him with Narcan as well. Lauren Hernandez M.D., 04/29/2023 SUBJECTIVE REASON FOR VISIT Evaluation for side [...] under the care of Dr. [facility] at [facility]. Treatment Course: 1xOpx Plan ID Fractions Dose / Fraction (cGy) Dose Treated (cGy) Dose Planned (cGy) First Treatment Last Treatment Elapsed Days F1Opx 200 5200 7000 03/23/2023 04/28/2023 36 Course Summary 03/23/2023 04/28/2023 36 The patient was seen and examined today with Dr. Hernandez. Patient reports that he is struggling with treatment. He did not get chemotherapy yesterday becauseof low counts (counts viewable in document viewer). He has continuous pain that at times it even hurts to swallow water. He is reports that he doesn't feel well if he takes more than 3 doses of Norcodaily so that it what he has been doing. He currently rates his pain a 4 out of 10 but is often higher than that. He occasionally uses Magic Mouthwash and Baking Soda swishes. He is taking in a mostly liquids diet doing 3 high calorie boost daily. Patient has a standing IV fluid order for [facility] and reports that he is going to have IV fluids on Thursday. He feels that it is time for a feedingtube and he is now willing to have that procedure done. Patient is applying Aquaphor and Aloe/Lidocaine mixture to skin 2 times daily. Patient denies fever or chills. PATIENT REPORTED SYMPTOM SCREEN FATIGUE (Scale: 0 = no fatigue; 10 = worst fatigue you can imagine): 2 PAIN (Scale: 0 = no pain; 10 = worst pain you can imagine): 4 OVERALL QUALITY OF LIFE (Scale: 0 = as bad as can be; 10 = as good as can be): 6 OBJECTIVE There were no vitals taken for this visit. WEIGHTS 03/13/2023: 122 kg 03/26/2023: 124 kg 04/02/2023: 123 kg 04/07/2023: 120 kg 04/15/2023: 117.3 kg 04/22/2023: 114.8 kg 04/29/2022: 111.2 kg PHYSICAL EXAM General: Alert and oriented in no apparent distress. Skin: Brisk erythema and dryness noted lower neck to lower subclavicular region. Desquamation notedto neck bilaterally Mouth: mucositis noted to uvula region and left posterior buccal mucosa. 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 Weight has decreased by3 kg since last week. Orders have been placed for patient to have a tube feeding placed in [place] as soon as possible. Encouraged patient to continue to take in 3-4 High Calorie Boost Daily and whatever other soft foods he can tolerate. Encourage patient do due IV fluids at [facility] as needed. Patient was amenable to trying a Fentanyl patch for better pain control. Patient will be started on a 12.5 mcg Fentanyl patch. Prescription for Fentanyl patches and Narcan was sent to patient's preferred pharmacy. Reviewed with patient Fentanyl patch and Narcan education. Also review moist skin de squamation eduction with patient. Patient was provided with Xeroform, Telfa and ProNet. He will continue with radiation treatment as planned. He can contact our care team with any questions or concerns. Signed by: Ramandeep Sanz R.N. 04/29/2023 8:21 AM SYNTHETIC CLOTH BINDING CUTTER HETIC CLOTH BINDING CUTTER documented in this encounter Plan of Treatment Upcoming Encounters Date Type Department Care Team (Late st Contact Info) Description 05/07/2023 8:00 AM SYNTHETIC CLOTH BINDING CUTTER Appointment Department of Radiation Oncology in [place], [place] [address] [place] [phone] Lauren Hernandez M.D. [address] [place] [phone] 05/07/2023 10:00 AM SYNTHETIC CLOTH BINDING CUTTER Virtual Visit Division of Endocrinology in [place], [place] [address] [place] [phone] Kendra Tinsley APRN, C.N.P. [address] [place] [phone] 05/08/2023 8:00 AM SYNTHETIC CLOTH BINDING CUTTER Appointment Department of Radiation Oncology in [place], [place] [address] [place] [address] Lauren Hernandez M.D. 200 [place] [address] 05/11/2023 8:15 AM SYNTHETIC CLOTH BINDING CUTTER Appointment Department of Radiation Oncology in [place], [place] [address] [place] [address] Lauren Hernandez M.D. 200 [place] [address] Scheduled Orders Name Type Priority Associated Diagnoses Orde r Schedule Management Visit Radiation Oncology Routine Malignant Neoplasm Of Oropharynx (HCC) Once for 1 Occurrences starting 04/29/2023 until 04/29/2023 Scheduled Referrals Name Type Priority Associated Diagnoses Order Schedule Nutrition - Pre-feeding tube education visit (clinic) Outpatient Referral Routine Malignant Neoplasm Of Tonsil (HCC) Expected: 04/29/2023 (Approximate), Expires: 07/28/2024 Endocrinology - Home enteral medical nutrition therapy consult (clinic) Outpatient Referral Routine Malignant Neoplasm Of Tonsil (HCC) Expected: 04/29/2023 (Approximate), Expires: 07/28/2024 Nutrition - Home nutrition medical nutrition therapy consult (clinic) Outpatient Referral Routine Malignant Neoplasm Of Tonsil (HCC) 1 Occurrences starting 04/29/2023 until 07/28/2024 Nutrition - Post-feeding tube education visit (clinic) Outpatient Referral Routine Malignant Neoplasm Of Tonsil (HCC) Expected: 04/29/2023 (Approximate), Expires: 07/28/2024 Nutrition - Home nutrition medical nutrition therapy consult (clinic) Outpatient Referral Routine Malignant Neoplasm Of Tonsil (HCC) 1 Occurrences starting 04/29/2023 until 07/28/2024 documented as of this encounter Results * IR Gastrostomy Tube Placement (05/04/2023 1:35 PM SYNTHETIC CLOTH BINDING CUTTER) Anatomical Region Laterality Modality Abdomen, Vascular Interventi onal RST LOS, Vascular Interventional ARZ LOS, Vascular Interventional FLA LOS N/A X-Ray Angiography Impressions 05/04/2023 2:06 PM SYNTHETIC CLOTH BINDING CUTTER Placement of a 16 Honduran percutaneous gastrostomy tube. Nothing by mouth or tube for 2 hours (strict). Then use of mouth or tube for water, medications, and/or tube feeds per Nutrition note/order. Exchange tube in 3-5 months. Contact the [facility] clinic at [phone] to schedule the tube exchange. EP Narrative 05/04/2023 2:06 PM SYNTHETIC CLOTH BINDING CUTTER EXAM: IR GASTROSTOMY TUBE PLACEMENT CLINICAL HISTORY: 68-year-old male male with history of tonsillar squamous cell carcinoma with moderate malnutrition requiring gastrostomy tube placement. Pre-Procedure Diagnosis: Cancer. Indication: Feeding. TECHNIQUE: The patient was placed supine on the fluoroscopy table. Under fluoroscopic guidance, a 4 Honduran catheter was placed as a nasogastric tube. [...] confirmed with a small contrast injection. 4 Honduran catheter and Glidewire were advanced into the [...] applied. No immediate complication. Tube Type: Gastrostomy, kaibab. Tube Connection: ENFit. Tube Size: 16 Honduran. Low Profile: No. Disc Height: 5 cm. [...] the fluoroscopy table. Underfluoroscopic guidance, a 4 Honduran catheter was placed as a nasogastrictube. The [...] confirmed with a small contrast injection. 4 Honduran catheter andGlidewire were advanced into the duodenum [...] applied. No immediate complication. Tube Type: Gastrostomy, kaibab. Tube Connection: ENFit. Tube Size: 16 Honduran. Low Profile: No. Disc Height: 5 cm. [...] by Anesthesiology. IMPRESSION: Placement of a 16 Honduran percutaneous gastrostomy tube. Nothing by mouthor tube for 2 hours (strict). Then use of mouth or tube for water,medications, and/or tube feeds per Nutrition note/order. Exchange tube in3-5 months. Contact the [facility] clinic at [phone] to schedule the tube exchange. 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
--- OUTSIDE RECORDS SUMMARY | 2023-05-06 10:45 | XMS_ITS | Encounter Summary ---
Author Name Unknown Organization [facility] Address [address] [place] [address] Care Team Providers Care Sap Bi Developer Name Role Phone Unavailable Primary Care Provider Unavailabl e Reason for Visit * Radiation Therapy (Routine) - Authorized Specialty Diagnoses / Procedures Referred By Contac t Referred To Contact Diagnoses Malignant Neoplasm Of Oropharynx (HCC) Procedures Prior Auth Rad Tx [place] IMRT COMPLEX IMRT Lauren Hernandez M.D. [address] [place] [phone] [facility] Radiation Oncology at [place] [address] [place] [phone] Referral ID Status Reason Start Date Expiration Date V isits Requested Visits Authorized [id number] Authorized 03/23/2023 03/11/2024 35 35 Encounter Details Date Type Department Care Team (Late st Contact Info) Description 04/21/2023 8:36 AM [facility] Hospital Encounter Department of Radiation Oncology in [place], [place] [address] [place] [phone] Lauren Hernandez M.D. [address] [place] [phone] Social History Tobacco Use Types Packs/Day Years [...] living situation today? I have a [facility] place to live 03/01/2023 Sex and Gender Information Value Date Recorded Sex Assigned at Male 03/01/2023 1:25 PM CALCINER OPERATOR Gender Identity Male 03/01/2023 1:25 PM CALCINER OPERATOR Sexual Orientation Not on file documented as of this encounter Plan of Treatment Upcoming Encounters Date Type Department Care Team (Late st Contact Info) Description 05/07/2023 8:00 AM CALCINER OPERATOR Appointment Department of Radiation Oncology in [place], [place] [address] [place] [phone] Lauren Hernandez M.D. 200 [place] [address] 05/07/2023 10:00 AM CALCINER OPERATOR Virtual Visit Division of Endocrinology in [place], [place] [address] [place] [address] Kendra Tinsley APRN, C.N.P. [address] [place] [phone] 05/08/2023 8:00 AM CALCINER OPERATOR Appointment Department of Radiation Oncology in [place], [place] [address] [place] [address] Luaren Hernandez M.D. [address] [place] [phone] 05/11/2023 8:15 AM CALCINER OPERATOR Appointment Department of Radiation Oncology in [place], [place] [address] [place] [phone] Lauren Hernandez M.D. [address] [place] [phone] documented as of this encounter Visit Diagnoses Not on filedocumented in this encounter
--- OUTSIDE RECORDS SUMMARY | 2023-05-06 10:45 | XMS_ITS | Encounter Summary ---
Author Name Unknown Organization [facility] Address [address] [place] [address] Care Team Providers Care Criminal Justice Teacher Name Role Phone Unavailable Primary Care Provider Unavailabl e Reason for Visit * Radiation Therapy (Routine) - Authorized Specialty Diagnoses / Procedures Referred By Contac t Referred To Contact Diagnoses Malignant Neoplasm Of Oropharynx (HCC) Procedures Prior Auth Rad Tx [place] IMRT COMPLEX IMRT Laruen Hernandez M.D. [address] [place] [phone] [facility] Radiation Oncology at [place] [address] [place] [phone] Referral ID Status Reason Start Date Expiration Date V isits Requested Visits Authorized [id number] Authorized 03/23/2023 03/11/2024 35 35 Encounter Details Date Type Department Care Team (Late st Contact Info) Description 04/23/2023 2:48 PM [facility] Hospital Encounter Department of Radiation Oncology in [place], [place] [address] [place] [phone] Lauren Hernandez M.D. [address] [place] [phone] Social History Tobacco Use Types Packs/Day Years [...] your living situation today? I have a [facility] place to live 03/01/2023 Sex and Gender Information Value Date Recorded Sex Assigned at Male 03/01/2023 1:25 PM PHYTOPATHOLOGY TEACHER Gender Identity Male 03/01/2023 1:25 PM PHYTOPATHOLOGY TEACHER Sexual Orientation Not on file documented as of this encounter Plan of Treatment Upcoming Encounters Date Type Department Care Team (Late st Contact Info) Description 05/07/2023 8:00 AM PHYTOPATHOLOGY TEACHER Appointment Department of Radiation Oncology in [place], [place] [address] [place] [phone] Lauren Hernandez M.D. 200 [place] [address] 05/07/2023 10:00 AM PHYTOPATHOLOGY TEACHER Virtual Visit Division of Endocrinology in [place], [place] [address] [place] [phone] Kendra Tinsley APRN, C.N.P. [address] [place] [phone] 05/08/2023 8:00 AM PHYTOPATHOLOGY TEACHER Appointment Department of Radiation Oncology in [place], [place] [address] [place] [address] Lauren Hernandez M.D. [address] [place] [phone] 05/11/2023 8:15 AM PHYTOPATHOLOGY TEACHER Appointment Department of Radiation Oncology in [place], [place] [address] [place] [phone] Lauren Hernandez M.D. [address] [place] [phone] documented as of this encounter Visit Diagnoses Not on filedocumented in this encounter
--- OUTSIDE RECORDS SUMMARY | 2023-05-06 10:45 | XMS_ITS | Encounter Summary ---
Author Name Unknown Organization [facility] Address [address] [place] [address] Care Team Providers Care Aerial Applicator Pilot Name Role Phone Unavailable Primary Care Provider Unavailabl e Encounter Details Date Type Department Care Team (Late st Contact Info) Description 04/17/2023 Orders Only Department of Radiation Oncology in [place], [place] [address] [place] [phone] Lauren Hernandez M.D. [address] [place] [phone] Social History Tobacco Use Types Packs/Day Years [...] your living situation today? I have a [facility] place to live 03/01/2023 Sex and Gender Information Value Date Recorded Sex Assigned at Male 03/01/2023 1:25 PM DEVELOPMENT TEAM LEAD Gender Identity Male 03/01/2023 1:25 PM DEVELOPMENT TEAM LEAD Sexual Orientation Not on file documented as of this encounter Plan of Treatment Upcoming Encounters Date Type Department Care Team (Late st Contact Info) Description 05/07/2023 8:00 AM DEVELOPMENT TEAM LEAD Appointment Department of Radiation Oncology in [address] [phone] Lauren Hernandez M.D. 200 [place] [phone] 05/07/2023 10:00 AM DEVELOPMENT TEAM LEAD Virtual Visit Division of Endocrinology in [place], [place] 200 [place] [phone] Kendra Tinsley APRN, C.N.P. [address] [place] [phone] 05/08/2023 8:00 AM DEVELOPMENT TEAM LEAD Appointment Department of Radiation Oncology in [address] [phone] Lauren Hernandez M.D. [address] [place] [address] 05/11/2023 8:15 AM DEVELOPMENT TEAM LEAD Appointment Department of Radiation Oncology in [place], [place] [address] [place] [address] Lauren Hernandez M.D. 200 [place] [phone] documented as of this encounter Visit Diagnoses Not on filedocumented in this encounter
--- OUTSIDE RECORDS SUMMARY | 2023-05-06 10:45 | XMS_ITS | Encounter Summary ---
Author Name Unknown Organization [facility] Address [address] [place] [address] Care Team Providers Care Cash Posting Clerk Name Role Phone Unavailable Primary Care Provider Unavailabl e Reason for Visit * Radiation Therapy (Routine) - Authorized Specialty Diagnoses / Procedures Referred By Contac t Referred To Contact Diagnoses Malignant Neoplasm Of Oropharynx (HCC) Procedures Prior Auth Rad Tx [place] IMRT COMPLEX IMRT Lauren Hernandez M.D. [address] [place] [phone] [facility] Radiation Oncology at [place] [address] [place] [phone] Referral ID Status Reason Start Date Expiration Date V isits Requested Visits Authorized [id number] Authorized 03/23/2023 03/11/2024 35 35 Encounter Details Date Type Department Care Team (Late st Contact Info) Description 04/16/2023 8:16 AM [facility] Hospital Encounter Department of Radiation Oncology in [place], [place] [address] [place] [phone] Lauren Hernandez M.D. [address] [place] [phone] Social History Tobacco Use Types Packs/Day Years [...] living situation today? I have a [facility] place to live 03/01/2023 Sex and Gender Information Value Date Recorded Sex Assigned at Male 03/01/2023 1:25 PM ADULT PSYCHIATRIST Gender Identity Male 03/01/2023 1:25 PM ADULT PSYCHIATRIST Sexual Orientation Not on file documented as of this encounter Plan of Treatment Upcoming Encounters Date Type Department Care Team (Late st Contact Info) Description 05/07/2023 8:00 AM ADULT PSYCHIATRIST Appointment Department of Radiation Oncology in [place], [place] [address] [place] [phone] Lauren Hernandez M.D. 200 [place] [phone] 05/07/2023 10:00 AM ADULT PSYCHIATRIST Virtual Visit Division of Endocrinology in [place], [place] [address] [place] [phone] Kendra Tinsley APRN, C.N.P. [address] [place] [phone] 05/08/2023 8:00 AM ADULT PSYCHIATRIST Appointment Department of Radiation Oncology in [place], [place] [address] [place] [phone] Lauren eHrnandez M.D. [address] [place] [phone] 05/11/2023 8:15 AM ADULT PSYCHIATRIST Appointment Department of Radiation Oncology in [place], [place] [address] [place] [phone] Lauren Hernandez M.D. [address] [place] [phone] documented as of this encounter Visit Diagnoses Not on filedocumented in this encounter
--- OUTSIDE RECORDS SUMMARY | 2023-05-06 10:46 | XMS_ITS | Encounter Summary ---
Author Name Unknown Organization [facility] Address [address] [place] [address] Care Team Providers Care Diffusion Furnace Operator Name Role Phone Unavailable Primary Care Provider Unavailabl e Reason for Visit * Radiation Therapy (Routine) - Authorized Specialty Diagnoses / Procedures Referred By Contac t Referred To Contact Diagnoses Malignant Neoplasm Of Oropharynx (HCC) Procedures Prior Auth Rad Tx [place] IMRT COMPLEX IMRT Lauren Hernandez M.D. [address] [place] [phone] [facility] Radiation Oncology at [place] [address] [place] [phone] Referral ID Status Reason Start Date Expiration Date V isits Requested Visits Authorized [id number] Authorized 03/23/2023 03/11/2024 35 35 Encounter Details Date Type Department Care Team (Late st Contact Info) Description 04/09/2023 8:02 AM [facility] Hospital Encounter Department of Radiation Oncology in [place], [place] [address] [place] [phone] Lauren Hernandez M.D. [address] [place] [phone] Social History Tobacco Use Types Packs/Day Years [...] your living situation today? I have a [facility] place to live 03/01/2023 Sex and Gender Information Value Date Recorded Sex Assigned at Male 03/01/2023 1:25 PM OLD TESTAMENT PROFESSOR Gender Identity Male 03/01/2023 1:25 PM OLD TESTAMENT PROFESSOR Sexual Orientation Not on file documented as of this encounter Plan of Treatment Upcoming Encounters Date Type Department Care Team (Late st Contact Info) Description 05/07/2023 8:00 AM OLD TESTAMENT PROFESSOR Appointment Department of Radiation Oncology in [place], [place] [address] [place] [phone] Lauren Hernandez M.D. 200 [place] [phone] 05/07/2023 10:00 AM OLD TESTAMENT PROFESSOR Virtual Visit Division of Endocrinology in [place], [place] [address] [place] [phone] Kendra Tinsley APRN, C.N.P. [address] [place] [phone] 05/08/2023 8:00 AM OLD TESTAMENT PROFESSOR Appointment Department of Radiation Oncology in [place], [place] [address] [place] [address] Lauren Hernandez M.D. [address] [place] [phone] 05/11/2023 8:15 AM OLD TESTAMENT PROFESSOR Appointment Department of Radiation Oncology in [place], [place] [address] [place] [phone] Lauren Hernandez M.D. [address] [place] [phone] documented as of this encounter Visit Diagnoses Not on filedocumented in this encounter
--- OUTSIDE RECORDS SUMMARY | 2023-05-06 10:46 | XMS_ITS | Encounter Summary ---
Author Name Unknown Organization [facility] Address [address] [place] [address] Care Team Providers Care Element Setter Name Role Phone Unavailable Primary Care Provider Unavailabl e Reason for Referral * Medication Prior Authorization - Closed Specialty Diagnoses / Procedures Referred By Diamond montemayor Referred To Contact Lauren Hernandez M.D. [address] [place] [address] Referral ID Status Reason Start Date Expiration Date Visits Re quested Visits Authorized [id number] Closed 1 1 TED CIRCUIT BOARD ASSEMBLER * Radiation Therapy (Routine) - Authorized Specialty Diagnoses / Procedures Referred By Contac t Referred To Contact Diagnoses Malignant Neoplasm Of Oropharynx (HCC) Procedures Management Visit Lauren Hernandez M.D. 200 [place] [phone] [facility] Referral ID Status Reason Start Date Expiration Date V isits Requested Visits Authorized [id number] Authorized 03/12/2023 03/11/2024 10 10 TED CIRCUIT BOARD ASSEMBLER Reason for Visit * Radiation Therapy (Routine) - Authorized Specialty Diagnoses / Procedures Referred By Contac t Referred To Contact Diagnoses Malignant Neoplasm Of Oropharynx (HCC) Procedures Management Visit Lauren Hernandez M.D. 200 [place] [address] [facility] Region Referral ID Status Reason Start Date Expiration Date V isits Requested Visits Authorized [id number] Authorized 03/12/2023 03/11/2024 10 10 Encounter Details Date Type Department Care Team (Latest Contact Info) Description 04/07/2023 7:51 AM PRINTED CIRCUIT BOARD ASSEMBLER - 04/07/2023 3:25 PM PRINTED CIRCUIT BOARD ASSEMBLER Hospital Encounter Department of Radiation Oncology in [place], [place] [address] [place] [phone] Lauren Hernandez M.D. [address] [place] [phone] Malignant Neoplasm Of Oropharynx (HCC) Social History [...] your living situation today? I have a [facility] place to [facility] 03/01/2023 Sex and Gender Information Value Date Recorded Sex Assigned at Male 03/01/2023 1:25 PM PRINTED CIRCUIT BOARD ASSEMBLER Gender Identity Male 03/01/2023 1:25 PM PRINTED CIRCUIT BOARD ASSEMBLER Sexual Orientation Not on file documented as of this encounter Last Filed Vital Signs Vital Sign Reading Time Taken Comments Blood Pressure 119/75 04/07/2023 8:25 AM PRINTED CIRCUIT BOARD ASSEMBLER Pulse 66 04/07/2023 8:25 AM PRINTED CIRCUIT BOARD ASSEMBLER Temperature 36.1 ??C (97 ??F) 04/07/2023 8:25 AM PRINTED CIRCUIT BOARD ASSEMBLER Respiratory Rate - - Oxygen Saturation - - Inhaled Oxygen Concentration - - Weight 120 kg (264 lb 15.9 oz) 04/07/2023 8:25 A M PRINTED CIRCUIT BOARD ASSEMBLER Height - - Body Mass Index 41.59 03/26/2023 9:06 AM PRINTED CIRCUIT BOARD ASSEMBLER documented in this encounter Medications at Time [...] Progress Notes * Lauren Hernandez M.D. - 04/07/2023 8:30 AM CST ATTESTATION FOR MANAGEMENT VISIT I saw and evaluated the patient and participated in the zhang portions of the service as noted below.I reviewed the documentation of Ms. Ramandeep Sanz RN and agree with the findings and plan. Thepatient appears well on exam. We will continue with radiation as planned and monitor weekly. Lauren Hernandez M.D., 04/07/2023 SUBJECTIVE REASON FOR VISIT Evaluation for side [...] weekly Cisplatin under the care of Dr. uW at [facility]. Treatment Course: 1xOpx Plan ID Fractions Dose / Fraction (cGy) Dose Treated (cGy) Dose Planned (cGy) First Treatment Last Treatment Elapsed Days F1Opx 200 2400 7000 03/23/2023 04/07/2023 15 Course Summary 03/23/2023 04/07/2023 15 The patient was seen and examined today with Dr. Hernandez. The patient reports to be feeling well overall. He notes increasing fatigue with chemo and radiation therapy. He is starting to notice discomfort at the back of his throat and when eating. He rates this pain a 1-2 out of 10. He has needed to take anything for discomfort. He reports more noticeable nausea. He is taking antiemetics on a scheduled basis and finds it helpful. He has thick, sticky, se cretions. He is doing frequent baking soda swishes. He reports lack of appetite and changes to taste. He is applying lotion to treatment field twice daily. PATIENT REPORTED SYMPTOM SCREEN FATIGUE (Scale: 0 = no fatigue; 10 = worst fatigue you can imagine): 4 PAIN (Scale: 0 = no pain; 10 = worst pain you can imagine): 2 OVERALL QUALITY OF LIFE (Scale: 0 = as bad as can be; 10 = as good as can be): 7 OBJECTIVE BP 119/75 (BP Location: Right arm, Patient Position: Sitting, Cuff Size: Regular) Pulse 66 Temp36.1 ??C (Temporal) Wt 120 kg BMI 41.59 kg/m?? WEIGHTS 03/13/2023: 122 kg 03/26/2023: 124 kg 04/02/2023: 123 kg 04/07/2023: 120 kg PHYSICAL EXAM General: Alert and oriented in no apparent distress. Skin: Erythema and dryness noted to treatment field. No desquamation or signs of infection. Mouth: 1 small sore noted on left oropharynx. 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 The patient is tolerating radiation treatment well overall. Patient's weight has decreased 3 kg this past week. Discussed with patient the need to increase calorie intake to maintain weight. Printed off nutrition's dietary recommendations for patient. Patient verbalized he is aware of what th need to take in on a daily basis and will work on increasing intake. Patient will meet with our dietitianthis . Patient can continue baking soda swishes for thick secretions. He can also trial liquid Guaifenesin. Reviewed with patient the if pain becomes more persistent he can try Tylenol. Reviewed maximum dose of Tylenol in 4000 mg daily. Also, sent a prescription for Magic Mouthwash to patient's preferred pharmacy. Patient can take Magic Mouthwash three times daily, 15-20 minutes prior to eating and before bed. Patient should be mindful of food temperature and texture with first use due to the numbing effect. Patient can continue to apply lotion to treatment field twice daily. He can ap ply Aquaphor at night to areas of dryness. He will continue with radiation treatment as planned. Alcira contact our care team with any questions or concerns. Signed by: Ramandeep Sanz R.N. 04/07/2023 10:18 AM PRINTED CIRCUIT BOARD ASSEMBLER TED CIRCUIT BOARD ASSEMBLER documented in this encounter Plan of Treatment Upcoming Encounters Date Type Department Care Team (Late st Contact Info) Description 05/07/2023 8:00 AM PRINTED CIRCUIT BOARD ASSEMBLER Appointment Department of Radiation Oncology in [place], [place] [address] [place] [phone] Lauren Hernandez M.D. [address] [place] [phone] 05/07/2023 10:00 AM PRINTED CIRCUIT BOARD ASSEMBLER Virtual Visit Division of Endocrinology in [place], [place] [address] [place] [phone] Kendra Tinsley APRN, C.N.P. [address] [place] [phone] 05/08/2023 8:00 AM PRINTED CIRCUIT BOARD ASSEMBLER Appointment Department of Radiation Oncology in [place], [place] [address] [place] [phone] Lauren Hernandez M.D. [address] [place] [address] 05/11/2023 8:15 AM PRINTED CIRCUIT BOARD ASSEMBLER Appointment Department of Radiation Oncology in [place], [place] [address] [place] [address] Lauren Hernandez M.D. 200 [place] [phone] Scheduled Orders Name Type Priority Associated Diagnoses Orde r Schedule Management Visit Radiation Oncology Routine Malignant Neoplasm Of Oropharynx (HCC) Once for 1 Occurrences starting 04/07/2023 until 04/07/2023 documented as of this encounter Visit Diagnoses Diagnosis Malignant Neoplasm Of Oropharynx (HCC) documented in this encounter
--- OUTSIDE RECORDS SUMMARY | 2023-05-06 10:46 | XMS_ITS | Encounter Summary ---
Author Name Unknown Organization [facility] Address [address] [place] [address] Care Team Providers Care Blower Installer Name Role Phone Unavailable Primary Care Provider Unavailabl e Reason for Visit * Radiation Therapy (Routine) - Authorized Specialty Diagnoses / Procedures Referred By Contac t Referred To Contact Diagnoses Malignant Neoplasm Of Oropharynx (HCC) Procedures Prior Auth Rad Tx [place] IMRT COMPLEX IMRT Lauren Hernandez M.D. 200 [place] [address] [facility] Radiation Oncology at [address] [phone] Referral ID Status Reason Start Date Expiration Date V isits Requested Visits Authorized [id number] Authorized 03/23/2023 03/11/2024 35 35 Encounter Details Date Type Department Care Team (Latest Contact Info) Description 04/03/2023 9:53 AM LOCK FITTER - 04/03/2023 11:59 PM [facility] Hospital Encounter Department of Radiation Oncology in [address] [phone] Lauren Hernandez M.D. [address] [place] [phone] Discharge Disposition: Home or Self Care Social [...] your living situation today? I have a [facility] to [facility] 03/01/2023 Sex and Gender Information Value Date Recorded Sex Assigned at Male 03/01/2023 1:25 PM LOCK FITTER Gender Identity Male 03/01/2023 1:25 PM LOCK FITTER Sexual Orientation Not on file documented as of this encounter Medications at Time of Discharge Medication Sig Dispensed Refills Start Date End Date atorvastatin (LIPITOR) 10 mg tablet atorvastatin 10 mg oral tablet Start Date: 08/23/20 Status: Ordered 0 08/22/2020 azelaic acid (FINACEA) 15 % gel 0 09/20/2020 finasteride (PROSCAR) 5 mg tablet finasteride 5 [...] 09/24/2022 04/22/2023 documented as of this encounter Plan of Treatment Upcoming Encounters Date Type Department Care Team (Late st Contact Info) Description 05/07/2023 8:00 AM LOCK FITTER Appointment Department of Radiation Oncology in [place], [place] [address] [place] [phone] Lauren Hernandez M.D. 200 [place] [address] 05/07/2023 10:00 AM LOCK FITTER Virtual Visit Division of Endocrinology in [place], [place] [address] [place] [address] Kendra Tinsley APRN, C.N.P. [address] [place] [address] 05/08/2023 8:00 AM LOCK FITTER Appointment Department of Radiation Oncology in [place], [place] [address] [place] [phone] Lauren Hernandez M.D. [address] [place] [phone] 05/11/2023 8:15 AM LOCK FITTER Appointment Department of Radiation Oncology in [place], [place] [address] [place] [phone] Lauren Hernandez M.D. [address] [place] [phone] documented as of this encounter Visit Diagnoses Not on filedocumented in this encounter
--- OUTSIDE RECORDS SUMMARY | 2023-05-06 10:46 | XMS_ITS | Encounter Summary ---
Author Name Unknown Organization [facility] Address [address] [place] [address] Care Team Providers Care Development Vice President Name Role Phone Unavailable Primary Care Provider Unavailabl e Reason for Visit * Radiation Therapy (Routine) - Authorized Specialty Diagnoses / Procedures Referred By Contac t Referred To Contact Diagnoses Malignant Neoplasm Of Oropharynx (HCC) Procedures Prior Auth Rad Tx CT IMRT COMPLEX IMRT Lauren Hernandez M.D. [address] [place] [phone] [facility] Radiation Oncology at [place] [address] [place] [phone] Referral ID Status Reason Start Date Expiration Date V isits Requested Visits Authorized [id number] Authorized 03/23/2023 03/11/2024 35 35 Encounter Details Date Type Department Care Team (Late st Contact Info) Description 04/06/2023 11:37 AM [facility] Hospital Encounter Department of Radiation Oncology in [place], [place] [address] [place] [phone] Lauren Hernandez M.D. [address] [place] [phone] Social History Tobacco Use Types Packs/Day Years [...] your living situation today? I have a [facility] place to live 03/01/2023 Sex and Gender Information Value Date Recorded Sex Assigned at Male 03/01/2023 1:25 PM CONTINUOUS PILLOWCASE CUTTER Gender Identity Male 03/01/2023 1:25 PM CONTINUOUS PILLOWCASE CUTTER Sexual Orientation Not on file documented as of this encounter Plan of Treatment Upcoming Encounters Date Type Department Care Team (Late st Contact Info) Description 05/07/2023 8:00 AM CONTINUOUS PILLOWCASE CUTTER Appointment Department of Radiation Oncology in [place], [place] [address] [place] [phone] Lauren Hernandez M.D. 200 [place] [address] 05/07/2023 10:00 AM CONTINUOUS PILLOWCASE CUTTER Virtual Visit Division of Endocrinology in [place], [place] [address] [place] [address] Kendra Tinsley APRN, C.N.P. [address] [place] [phone] 05/08/2023 8:00 AM CONTINUOUS PILLOWCASE CUTTER Appointment Department of Radiation Oncology in [place], [place] [address] [place] [phone] Lauren Hernandez M.D. [address] [place] [phone] 05/11/2023 8:15 AM CONTINUOUS PILLOWCASE CUTTER Appointment Department of Radiation Oncology in [place], [place] [address] [place] [phone] Lauren Hernandez M.D. [address] [place] [phone] documented as of this encounter Visit Diagnoses Not on filedocumented in this encounter
--- OUTSIDE RECORDS SUMMARY | 2023-05-06 10:46 | XMS_ITS | Encounter Summary ---
Author Name Unknown Organization [facility] Address [address] [place] [address] Care Team Providers Care Production Sanitizer Name Role Phone Unavailable Primary Care Provider Unavailabl e Reason for Visit * Radiation Therapy (Routine) - Authorized Specialty Diagnoses / Procedures Referred By Contac t Referred To Contact Diagnoses Malignant Neoplasm Of Oropharynx (HCC) Procedures Prior Auth Rad Tx [place] IMRT COMPLEX IMRT Lauren Hernandez M.D. [address] [place] [phone] [facility] Radiation Oncology at [place] [address] [place] [phone] Referral ID Status Reason Start Date Expiration Date V isits Requested Visits Authorized [id number] Authorized 03/23/2023 03/11/2024 35 35 Encounter Details Date Type Department Care Team (Late st Contact Info) Description 04/10/2023 8:45 AM [facility] Hospital Encounter Department of Radiation Oncology in [place], [place] [address] [place] [phone] Lauren Hrenandez M.D. [address] [place] [phone] Social History Tobacco Use Types Packs/Day Years [...] your living situation today? I have a [facility] place to live 03/01/2023 Sex and Gender Information Value Date Recorded Sex Assigned at Male 03/01/2023 1:25 PM SLOT TAG INSERTER Gender Identity Male 03/01/2023 1:25 PM SLOT TAG INSERTER Sexual Orientation Not on file documented as of this encounter Plan of Treatment Upcoming Encounters Date Type Department Care Team (Late st Contact Info) Description 05/07/2023 8:00 AM SLOT TAG INSERTER Appointment Department of Radiation Oncology in [place], [place] [address] [place] [phone] Lauren Hernandez M.D. 200 [place] [phone] 05/07/2023 10:00 AM SLOT TAG INSERTER Virtual Visit Division of Endocrinology in [place], [place] [address] [place] [phone] Kendra Tinsley APRN, C.N.P. [address] [place] [phone] 05/08/2023 8:00 AM SLOT TAG INSERTER Appointment Department of Radiation Oncology in [place], [place] [address] [place] [address] Lauren Hernandez M.D. [address] [place] [phone] 05/11/2023 8:15 AM SLOT TAG INSERTER Appointment Department of Radiation Oncology in [place], [place] [address] [place] [phone] Lauren Hernandez M.D. [address] [place] [phone] documented as of this encounter Visit Diagnoses Not on filedocumented in this encounter
--- OUTSIDE RECORDS SUMMARY | 2023-05-06 10:46 | XMS_ITS | Encounter Summary ---
Author Name Unknown Organization [facility] Address [address] [place] [address] Care Team Providers Care Duty Manager Name Role Phone Unavailable Primary Care Provider Unavailabl e Reason for Referral * Radiation Therapy (Routine) - Authorized Specialty Diagnoses / Procedures Referred By Diamond montemayor Referred To Contact Diagnoses Malignant Neoplasm Of Oropharynx (HCC) Procedures Management Visit Lauren Hernandez M.D. [address] [place] [address] [facility] Region Referral ID Status Reason Start Date Expiration Date V isits Requested Visits Authorized [id number] Authorized 03/12/2023 03/11/2024 10 10 OR MECHANICAL PROJECT ENGINEER Reason for Visit * Radiation Therapy (Routine) - Authorized Specialty Diagnoses / Procedures Referred By Diamond montemayor Referred To Contact Diagnoses Malignant Neoplasm Of Oropharynx (HCC) Procedures Management Visit Lauren Hernandez M.D. [address] [place] [address] [facility] Region Referral ID Status Reason Start Date Expiration Date V isits Requested Visits Authorized [id number] Authorized 03/12/2023 03/11/2024 10 10 Encounter Details Date Type Department Care Team (Latest Contact Info) Description 04/02/2023 7:49 AM SENIOR MECHANICAL PROJECT ENGINEER - 04/02/2023 3:59 PM SENIOR MECHANICAL PROJECT ENGINEER Hospital Encounter Department of Radiation Oncology in [address] [phone] Lauren Hernadnez M.D. [address] [place] [address] Malignant Neoplasm Of Oropharynx (HCC) Social History [...] your living situation today? I have a [facility] place to live 03/01/2023 Sex and Gender Information Value Date Recorded Sex Assigned at Male 03/01/2023 1:25 PM SENIOR MECHANICAL PROJECT ENGINEER Gender Identity Male 03/01/2023 1:25 PM SENIOR MECHANICAL PROJECT ENGINEER Sexual Orientation Not on file documented as of this encounter Last Filed Vital Signs Vital Sign Reading Time Taken Comments Blood Pressure 115/67 04/02/2023 8:39 AM SENIOR MECHANICAL PROJECT ENGINEER Pulse 68 04/02/2023 8:39 AM SENIOR MECHANICAL PROJECT ENGINEER Temperature 36.6 ??C (97.8 ??F) 04/02/2023 8:39 AM CS T Respiratory Rate - - Oxygen Saturation - - Inhaled Oxygen Concentration - - Weight 123 kg (270 lb 15.1 oz) 04/02/2023 8:39 A M SENIOR MECHANICAL PROJECT ENGINEER Height - - Body Mass Index 42.53 03/26/2023 9:06 AM SENIOR MECHANICAL PROJECT ENGINEER documented in this encounter Medications at Time [...] mL 12 03/10/2023 03/09/2024 glucosamine portillo 2KCl-chondroit (Glucosamine-Chondro itin 3X Str) 750-600 mg tablet 0 04/27/2012 [...] Start Date: 02/14/21 Status: Ordered 0 11/25/2016 ENTERIC COATED ASPIRIN ORAL Take 1 capsule by mouth daily. 0 03/08/2011 04/03/2023 fish oil-dha-epa 1,200-144-216 mg capsule Take 1 capsule by mouth daily. 0 03/08/2011 04/03/2023 folic acid/multivit-min/luc tein (CENTRUM SILVER ORAL) Take 1 tablet by mouth daily. 0 03/08/2011 04/22/2023 levothyroxine sodium (TIROSINT) 125 mcg capsule 0 09/24/2022 04/22/2023 papaverine HCl/alprostad/water (PAPAVERINE-ALPROSTA DIL-WATER) 30 mg- 10 mcg/mL solution 0.05-1 mL by intracavernosal route as directed. Multicomponent: papaverine 30 mg/mL alprostadil 10 mcg/mL Instructions: inject 0.05 ml-1 ml intracavernosal prior to curve assessment on 07/09/17, not to exceed 1 ml. 0 07/09/2017 04/03/2023 documented as of this encounter Progress Notes * Lauren Hernandez M.D. - 04/02/2023 9:00 AM CST ATTESTATION FOR MANAGEMENT VISIT I saw and evaluated the patient and participated in the zhang portions of the service as noted below.I reviewed the documentation of Ms. Ramandeep Sanz RN and agree with the findings and plan. Thepatient appears well on exam. We will continue with radiation as planned and monitor weekly. Lauren Hernandez M.D., 04/02/2023 SUBJECTIVE REASON FOR VISIT Evaluation for side [...] at [facility]. Treatment Course: 1xOpx Plan ID Fractions Dose / Fraction (cGy) Dose Treated (cGy) Dose Planned (cGy) First Treatment Last Treatment Elapsed Days F1Opx 200 1800 7000 03/23/2023 04/02/2023 10 Course Summary 03/23/2023 04/02/2023 10 The patient was seen and examined today with Dr. Hernandez. The patient reports to be feeling well overall. He rates the pain on the left side of his neck a 1 out of 10. He hasn't needed to take anything for it. He notices mostly when he touches that specificspot on his neck or if he lays on that side when sleeping. He denies pain with swallowing. He is eating a regular diet and staying hydrated. He is noticing slight changes to his taste. He denies chemo related nausea. He denies dry mouth or thick secretions. He is applying lotion twice daily to treatment field. PATIENT REPORTED SYMPTOM SCREEN FATIGUE (Scale: 0 = no fatigue; 10 = worst fatigue you can imagine): 4 PAIN (Scale: 0 = no pain; 10 = worst pain you can imagine): 1 OVERALL QUALITY OF LIFE (Scale: 0 = as bad as can be; 10 = as good as can be): 8 OBJECTIVE BP 115/67 (BP Location: Right arm, Patient Position: Sitting, Cuff Size: Regular) Pulse 68 Temp36.6 ??C (Temporal) Wt 123 kg BMI 42.53 kg/m?? WEIGHTS 03/13/2023: 122 kg PHYSICAL EXAM General: Alert and oriented in no apparent distress. Skin: Mild erythema and dryness noted to treatment field. No desquamation or signs of infection. Mouth: No mucositis or signs of infection. 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 The patient is tolerating radiation treatment well overall. Patient can continue to apply lotion totreatment field twice daily. He will meet with the dietitian next week. He will continue with radiation treatment as planned. He can contact our care team with any questions or concerns. Signed by: Ramandeep Sanz R.N. 04/02/2023 9:45 AM SENIOR MECHANICAL PROJECT ENGINEER OR MECHANICAL PROJECT ENGINEER documented in this encounter Plan of Treatment Upcoming Encounters Date Type Department Care Team (Late st Contact Info) Description 05/07/2023 8:00 AM SENIOR MECHANICAL PROJECT ENGINEER Appointment Department of Radiation Oncology in [address] [phone] Lauren Hernandez M.D. [address] [place] [phone] 05/07/2023 10:00 AM SENIOR MECHANICAL PROJECT ENGINEER Virtual Visit Division of Endocrinology in [place], [place] [address] [place] [phone] Kendra Tinsley APRN, C.N.P. [address] [place] [phone] 05/08/2023 8:00 AM SENIOR MECHANICAL PROJECT ENGINEER Appointment Department of Radiation Oncology in [address] [phone] Lauren Hernandez M.D. [address] [place] [phone] 05/11/2023 8:15 AM SENIOR MECHANICAL PROJECT ENGINEER Appointment Department of Radiation Oncology in [address] [phone] Lauren Hernandez M.D. [address] [place] [address], [place] [phone] Scheduled Orders Name Type Priority Associated Diagnoses Orde r Schedule Management Visit Radiation Oncology Routine Malignant Neoplasm Of Oropharynx (HCC) Once for 1 Occurrences starting 04/02/2023 until 04/02/2023 documented as of this encounter Visit Diagnoses Diagnosis Malignant Neoplasm Of Oropharynx (HCC) documented in this encounter
--- OUTSIDE RECORDS SUMMARY | 2023-05-06 10:46 | XMS_ITS | Encounter Summary ---
Author Name Unknown Organization [facility] Address [address] [place] [address] Care Team Providers Care Logistics Research Engineer Name Role Phone Unavailable Primary Care Provider Unavailabl e Reason for Visit * Radiation Therapy (Routine) - Authorized Specialty Diagnoses / Procedures Referred By Contac t Referred To Contact Diagnoses Malignant Neoplasm Of Oropharynx (HCC) Procedures Prior Auth Rad Tx [place] IMRT COMPLEX IMRT Lauren Hernandez M.D. [address] [place] [phone] [facility] Radiation Oncology at [place] [address] [place] [phone] Referral ID Status Reason Start Date Expiration Date V isits Requested Visits Authorized [id number] Authorized 03/23/2023 03/11/2024 35 35 Encounter Details Date Type Department Care Team (Late st Contact Info) Description 04/08/2023 8:01 AM [facility] Hospital Encounter Department of Radiation Oncology in [place], [place] [address] [place] [phone] Lauren Hernandez M.D. [address] [place] [phone] Social History Tobacco Use Types Packs/Day Years [...] Sex Assigned at Male 03/01/2023 1:25 PM SINGEING TORCH OPERATOR Gender Identity Male 03/01/2023 1:25 PM SINGEING TORCH OPERATOR Sexual Orientation Not on file documented as of this encounter Plan of Treatment Upcoming Encounters Date Type Department Care Team (Late st Contact Info) Description 05/07/2023 8:00 AM SINGEING TORCH OPERATOR Appointment Department of Radiation Oncology in [place], [place] [address] [place] [phone] Lauren Hernandez M.D. 200 [place] [address] 05/07/2023 10:00 AM SINGEING TORCH OPERATOR Virtual Visit Division of Endocrinology in [place], [place] [address] [place] [address] Kendra Tinsley APRN, C.N.P. [address] [place] [phone] 05/08/2023 8:00 AM SINGEING TORCH OPERATOR Appointment Department of Radiation Oncology in [place], [place] [address] [place] [address] Lauren eHrnandez M.D. [address] [place] [phone] 05/11/2023 8:15 AM SINGEING TORCH OPERATOR Appointment Department of Radiation Oncology in [place], [place] [address] [place] [phone] Lauren Hernandez M.D. [address] [place] [phone] documented as of this encounter Visit Diagnoses Not on filedocumented in this encounter
--- OUTSIDE RECORDS SUMMARY | 2023-05-06 10:46 | XMS_ITS | Encounter Summary ---
Author Name Unknown Organization [facility] Address [address] [place] [address] Care Team Providers Care Entry Level Installation Technician Name Role Phone Unavailable Primary Care Provider Unavailabl e Reason for Referral * Outpatient (Routine) - Authorized Specialty Diagnoses / Procedures Referred By Contac t Referred To Contact Nutrition Diagnoses Malignant Neoplasm Of Oropharynx (HCC) Ashlee Go APRN, C.N.P., D.N.P. [address] [place] [phone] [facility] Region Referral ID Status Reason Start Date Expiration Date V isits Requested Visits Authorized [id number] Authorized 03/12/2023 03/11/2024 5 5 TOP HAT BODY MAKER Reason for Visit * Outpatient (Routine) - Authorized Specialty Diagnoses / Procedures Referred By Contac t Referred To Contact Nutrition Diagnoses Malignant Neoplasm Of Oropharynx (HCC) Ashlee Go APRN, C.N.P., D.N.P. [address] [place] [phone] [facility] Region Referral ID Status Reason Start Date Expiration Date V isits Requested Visits Authorized [id number] Authorized 03/12/2023 03/11/2024 5 5 Encounter Details Date Type Department Care Team (Late st Contact Info) Description 04/09/2023 8:03 AM SILK TOP HAT BODY MAKER Hospital Encounter Department of Radiation Oncology in [place], [place] [address] [place] [address] Ashlee Go APRN, C.N.P., D.N.P. [address] [place] [address] Poly Gill, NIDA [address] [place] [address] Malignant Neoplasm Of Oropharynx (HCC) [...] your living situation today? I have a [facility] place to live 03/01/2023 Sex and Gender Information Value Date Recorded Sex Assigned at Male 03/01/2023 1:25 PM SILK TOP HAT BODY MAKER Gender Identity Male 03/01/2023 1:25 PM SILK TOP HAT BODY MAKER Sexual Orientation Not on file documented as of this encounter Progress Notes * Poly Gill, LD - 04/09/2023 9:15 AM CST CHIEF COMPLAINT/REASON FOR VISIT Malignant Neoplasm Of Oropharynx (HCC) [C10.9] HISTORY OF PRESENT ILLNESS Mr. Roland is a 68 y.o. year old male with a left glossotonsillar mass and associated left neck adenopathy. He started radiation therapy on March 23. He is also receiving chemotherapy at [facility]. PAST MEDICAL HISTORY The medical history was reviewed today from the electronic medical record. Please see the electronic medical record for complete details of the PAST MEDICAL HISTORY. ASSESSMENT Relevant Social and Family History Mr. Roland lives with his spouse, Eva in [place]. Nutrition Focused Physical Findings Mouth/esophagus/Throat: Mild sore throat. Dry mouth. Note taste. Bowels: Patient reports no significant difference in usual bowel. Nausea/vomiting: none Speech Pathology Dysphagia Videofluoroscopic Swallow Study (VFSS) 03/09/23: Diagnosis: Normal oropharyngeal swallow Recommendations: 1. Continue a regular diet and thin liquids 2. Pills per patient preference 3. Instruction and training in swallowing exercises, if indicated after treatment plan is determined Food/Nutrition Related History Patient attended appointment alone. He reports no typical days anymore. Today he had honey nut cheerios with skim milk and pudding in the middle of the night as he was awake. He reports yesterday was not a typical day as he slept most of the day. He has been eating a fair amount of ham and cheese as this is well tolerated. He has been experimenting some with supplements and shakes. Water intake is between 60 and 80 ounces a day. He drinks some fruit punch and apple juice on occasion. Weight History Date: 03/26/23: Weight: 124.5 kg Height 170 cm Body mass index is 43.1 kg/m??. Patient reports UBW is approximately 120 kg (264#). 03/13/23: 122 kg - Starting weight 03/05/23: 119 kg 04/07/23: 120 kg Estimation of Nutritional Needs Weight Used for Equation Calculations: 80.4 kg (Adj. Wt.) Date: 03/13/23 Total Calorie Needs: 7563-8361 (HB basal to basal + 20%) Estimated Protein Needs: 96-104 grams per day (1.2-1.3 g/kg Adj. Wt.) Estimated Fluid Needs: 3000 ml per day (25 ml/kg actual wt.) NUTRITION DIAGNOSIS Food- and nutrition-related knowledge deficit related to cancer with chemoradiation as evidenced byneed for nutrition education to maintain weight and nutrition status during treatment Nutrition Diagnosis Reassessment: Ongoing Nutrition Prescription/Recommendation 1900 kcals, 95-105+ grams protein, 12+ cups fluid INTERVENTION Today, we discussed the role of nutrition during radiation treatment. Discussed principles of weight maintenance and oral intake recommendations for patients undergoing cancer treatment. Discussed the goal of maintaining current weight (within 5%) during course of treatment. Patient reports strong desire to avoid tube feeding. Encouraged patient related to adequate protein, calorie and fluid intake and discussed options for increasing current usual intake including smaller meals, snacks, eatingseveral times throughout the day, use of supplements. Included in this discussion the importance ofstaying hydrated as well. Provided patient with his calorie, protein and fluid goals. Encouraged pat ient toward looking adequate nutrition like his job or medicine. Handouts: Premier protein recipes and Shake Nutrition. MONITORING AND EVALUATION: Nutrition parameter to monitor: Weight Desired Outcome: Maintain weight within 5-10% of treatment start weight Patient Goal(s): 1. A minimum of 1900 calories and 95 grams of protein a day. 2. Aim for 12+ cups of fluid per day. 3. Addition of small meals, snacks, supplements toward meeting estimated daily needs. FOLLOW UP PLAN: He will follow up in 2 weeks. RDN's contact information provided and he was encouraged to call withquestions. Time spent with patient (minutes): 30 TOP HAT BODY MAKER documented in this encounter Plan of Treatment Upcoming Encounters Date Type Department Care Team (Late st Contact Info) Description 05/07/2023 8:00 AM SILK TOP HAT BODY MAKER Appointment Department of Radiation Oncology in [place], [place] [address] [place] [phone] Lauren Hernandez M.D. [address] [place] [phone] 05/07/2023 10:00 AM SILK TOP HAT BODY MAKER Virtual Visit Division of Endocrinology in [place], [place] [address] [place] [phone] Kendra Tinsley, PATRICE, C.N.P. [address] [place] [phone] 05/08/2023 8:00 AM SILK TOP HAT BODY MAKER Appointment Department of Radiation Oncology in [address] [phone] Lauren Hernandez M.D. [address] [place] [phone] 05/11/2023 8:15 AM SILK TOP HAT BODY MAKER Appointment Department of Radiation Oncology in [address] [phone] Lauren Hernandez M.D. [address] [place] [phone] Scheduled Referrals Name Type Priority Associated Diagnoses Order Schedule Nutrition - Medical nutrition therapy consult (clinic) Outpatient Referral Routine Malignant Neoplasm Of Oropharynx (HCC) Once for 1 Occurrences starting 04/09/2023 until 04/09/2023 documented as of this encounter Visit Diagnoses Diagnosis Malignant Neoplasm Of Oropharynx (HCC) documented in this encounter
--- OUTSIDE RECORDS SUMMARY | 2023-05-06 10:46 | XMS_ITS | Encounter Summary ---
Author Name Unknown Organization [facility] Address [address] [place] [address] Care Team Providers Care Smokehouse Worker Name Role Phone Unavailable Primary Care Provider Unavailabl e Reason for Visit * Radiation Therapy (Routine) - Authorized Specialty Diagnoses / Procedures Referred By Contac t Referred To Contact Diagnoses Malignant Neoplasm Of Oropharynx (HCC) Procedures Prior Auth Rad Tx [place] IMRT COMPLEX IMRT Lauren Hernandez M.D. [address] [place] [address] [facility] Radiation Oncology at [address] [phone] Referral ID Status Reason Start Date Expiration Date V isits Requested Visits Authorized [id number] Authorized 03/23/2023 03/11/2024 35 35 Encounter Details Date Type Department Care Team (Latest Contact Info) Description 04/01/2023 7:47 AM SPRAY GUN OPERATOR - 04/01/2023 11:59 PM [facility] Hospital Encounter Department of Radiation Oncology in [address] [phone] Lauren Hernandez M.D. [address] [place] [phone] Discharge Disposition: Home or Self Care Social [...] your living situation today? I have a [facility] place to live 03/01/2023 Sex and Gender Information Value Date Recorded Sex Assigned at Male 03/01/2023 1:25 PM SPRAY GUN OPERATOR Gender Identity Male 03/01/2023 1:25 PM SPRAY GUN OPERATOR Sexual Orientation Not on file documented [...] 07/09/2017 04/03/2023 documented as of this encounter Plan of Treatment Upcoming Encounters Date Type Department Care Team (Late st Contact Info) Description 05/07/2023 8:00 AM SPRAY GUN OPERATOR Appointment Department of Radiation Oncology in [address] [phone] Lauren Hernandez M.D. [address] [place] [phone] 05/07/2023 10:00 AM SPRAY GUN OPERATOR Virtual Visit Division of Endocrinology in [place], [place] [address] [place] [phone] Kendra Tinsley APRN, C.N.P. [address] [place] [phone] 05/08/2023 8:00 AM SPRAY GUN OPERATOR Appointment Department of Radiation Oncology in [address] [phone] Lauren Hernandez M.D. [address] [place] [phone] 05/11/2023 8:15 AM SPRAY GUN OPERATOR Appointment Department of Radiation Oncology in [address] [phone] Lauren Hernandez M.D. [address] [place] [phone] documented as of this encounter Visit Diagnoses Not on filedocumented in this encounter
--- OUTSIDE RECORDS SUMMARY | 2023-05-06 10:46 | XMS_ITS | Encounter Summary ---
Author Name Unknown Organization [facility] Address [address] [place] [address] Care Team Providers Care Acid Pump Operator Name Role Phone Unavailable Primary Care Provider Unavailabl e Reason for Referral * Specialty Diagnoses / Procedures Referred By Diamond t Referred To Contact Terri Crowe P.A.-C., M.S. [address] [place] [phone] [facility] Region Referral ID Status Reason Start Date Expiration Date Visits Re quested Visits Authorized METRIST ASSISTANT Encounter Details Date Type Department Care Team (Latest Contact Info) Description 04/03/2023 9:53 AM OPTOMETRIST ASSISTANT - 04/03/2023 11:57 AM OPTOMETRIST ASSISTANT Hospital Encounter Department of Radiation Oncology in [place], [place] [address] [place] [phone] Lauren Hernandez M.D. [address] [place] [phone] Anita Kyle RJurgen [address] [place] [phone] Malignant Neoplasm Of Oropharynx (HCC) Discharge Disposition: [...] your living situation today? I have a [facility] place to live 03/01/2023 Sex and Gender Information Value Date Recorded Sex Assigned at Male 03/01/2023 1:25 PM OPTOMETRIST ASSISTANT Gender Identity Male 03/01/2023 1:25 PM OPTOMETRIST ASSISTANT Sexual Orientation Not on file documented as of this encounter Last Filed Vital Signs Vital Sign Reading Time Taken Comments Blood Pressure - - Pulse - - Temperature - - Respiratory Rate - - Oxygen Saturation - - Inhaled Oxygen Concentration - - Weight 124 kg (273 lb 9.5 oz) 04/03/2023 11:00 A M OPTOMETRIST ASSISTANT Height - - Body Mass Index 42.94 03/26/2023 9:06 AM OPTOMETRIST ASSISTANT documented in this encounter Medications at Time [...] as of this encounter Progress Notes * Anita Kyle, R.N. - 04/03/2023 10:45 AM CST Patient was educated on side effects of radiation therapy. Their questions were answered to the best of my ability. The patient was encouraged to contact the team at any point, with questions or concerns. METRIST ASSISTANT documented in this encounter Plan of Treatment Upcoming Encounters Date Type Department Care Team (Late st Contact Info) Description 05/07/2023 8:00 AM OPTOMETRIST ASSISTANT Appointment Department of Radiation Oncology in [address] [phone] Lauren Hernandez M.D. [address] [place] [phone] 05/07/2023 10:00 AM OPTOMETRIST ASSISTANT Virtual Visit Division of Endocrinology in [place], [place] [address] [place] [phone] Kendra Tinsley, PATRICE, C.N.P. [address] [place] [phone] 05/08/2023 8:00 AM OPTOMETRIST ASSISTANT Appointment Department of Radiation Oncology in [address] [phone] Lauren Hernandez M.D. [address] [place] [phone] 05/11/2023 8:15 AM OPTOMETRIST ASSISTANT Appointment Department of Radiation Oncology in [address] [phone] Lauren Hernandez M.D. [address] [place] [phone] Scheduled Referrals Name Type Priority Associated Diagnoses Order Schedule Radiation Oncology - Nurse education visit (clinic) Outpatient Referral Routine Malignant Neoplasm Of Oropharynx (HCC) Once for 1 Occurrences starting 04/03/2023 until 04/03/2023 documented as of this encounter Visit Diagnoses Diagnosis Malignant Neoplasm Of Oropharynx (HCC) documented in this encounter
--- OUTSIDE RECORDS SUMMARY | 2023-05-06 10:46 | XMS_ITS | Encounter Summary ---
Author Name Unknown Organization [facility] Address [address] [place] [address] Care Team Providers Care Clinical Medical Assistant Name Role Phone Unavailable Primary Care Provider Unavailabl e Reason for Visit * Radiation Therapy (Routine) - Authorized Specialty Diagnoses / Procedures Referred By Contac t Referred To Contact Diagnoses Malignant Neoplasm Of Oropharynx (HCC) Procedures Prior Auth Rad Tx [place] IMRT COMPLEX IMRT Lauren Hernandez M.D. [address] [place] [phone] [facility] Radiation Oncology at [place] [address] [place] [phone] Referral ID Status Reason Start Date Expiration Date V isits Requested Visits Authorized [id number] Authorized 03/23/2023 03/11/2024 35 35 Encounter Details Date Type Department Care Team (Late st Contact Info) Description 04/07/2023 7:50 AM [facility] Hospital Encounter Department of Radiation Oncology in [place], [place] [address] [place] [phone] Lauren Hernandez M.D. [address] [place] [phone] Social History Tobacco Use Types Packs/Day Years [...] your living situation today? I have a [facility] place to live 03/01/2023 Sex and Gender Information Value Date Recorded Sex Assigned at Male 03/01/2023 1:25 PM STEEL PICKLER Gender Identity Male 03/01/2023 1:25 PM STEEL PICKLER Sexual Orientation Not on file documented as of this encounter Plan of Treatment Upcoming Encounters Date Type Department Care Team (Late st Contact Info) Description 05/07/2023 8:00 AM STEEL PICKLER Appointment Department of Radiation Oncology in [place], [place] [address] [place] [phone] Lauren Hernandez M.D. 200 [place] [address] 05/07/2023 10:00 AM STEEL PICKLER Virtual Visit Division of Endocrinology in [place], [place] [address] [place] [address] Kendra Tinsley APRN, C.N.P. [address] [place] [phone] 05/08/2023 8:00 AM STEEL PICKLER Appointment Department of Radiation Oncology in [place], [place] [address] [place] [phone] Lauren Hernandez M.D. [address] [place] [phone] 05/11/2023 8:15 AM STEEL PICKLER Appointment Department of Radiation Oncology in [place], [place] [address] [place] [phone] Lauren Hernandez M.D. [address] [place] [phone] documented as of this encounter Visit Diagnoses Not on filedocumented in this encounter
--- OUTSIDE RECORDS SUMMARY | 2023-05-06 10:46 | XMS_ITS | Encounter Summary ---
Author Name Unknown Organization [facility] Address [address] [place] [address] Care Team Providers Care Drywall Carrier Name Role Phone Unavailable Primary Care Provider Unavailabl e Reason for Visit * Radiation Therapy (Routine) - Authorized Specialty Diagnoses / Procedures Referred By Contac t Referred To Contact Diagnoses Malignant Neoplasm Of Oropharynx (HCC) Procedures Prior Auth Rad Tx [place] IMRT COMPLEX IMRT Lauren Hernandez M.D. [address] [place] [phone] [facility] Radiation Oncology at [place] [address] [place] [phone] Referral ID Status Reason Start Date Expiration Date V isits Requested Visits Authorized [id number] Authorized 03/23/2023 03/11/2024 35 35 Encounter Details Date Type Department Care Team (Late st Contact Info) Description 04/13/2023 9:12 AM [facility] Hospital Encounter Department of Radiation Oncology in [place], [place] [address] [place] [phone] Lauren Hernandez M.D. [address] [place] [phone] Social History Tobacco Use Types Packs/Day Years [...] Sex Assigned at Male 03/01/2023 1:25 PM COLLAR STITCHER Gender Identity Male 03/01/2023 1:25 PM COLLAR STITCHER Sexual Orientation Not on file documented as of this encounter Plan of Treatment Upcoming Encounters Date Type Department Care Team (Late st Contact Info) Description 05/07/2023 8:00 AM COLLAR STITCHER Appointment Department of Radiation Oncology in [place], [place] [address] [place] [phone] Lauren Hernandez M.D. 200 [place] [phone] 05/07/2023 10:00 AM COLLAR STITCHER Virtual Visit Division of Endocrinology in [place], [place] [address] [place] [address] Kendra Tinsley APRN, C.N.P. [address] [place] [phone] 05/08/2023 8:00 AM COLLAR STITCHER Appointment Department of Radiation Oncology in [place], [place] [address] [place] [address] Lauren Hernandez M.D. [address] [place] [phone] 05/11/2023 8:15 AM COLLAR STITCHER Appointment Department of Radiation Oncology in [place], [place] [address] [place] [phone] Lauren Hernandez M.D. [address] [place] [phone] documented as of this encounter Visit Diagnoses Not on filedocumented in this encounter
--- OUTSIDE RECORDS SUMMARY | 2023-05-06 10:46 | XMS_ITS | Encounter Summary ---
Author Name Unknown Organization [facility] Address [address] [place] [address] Care Team Providers Care Polymerization Oven Operator Name Role Phone Unavailable Primary Care Provider Unavailabl e Reason for Visit * Radiation Therapy (Routine) - Authorized Specialty Diagnoses / Procedures Referred By Contac t Referred To Contact Diagnoses Malignant Neoplasm Of Oropharynx (HCC) Procedures Prior Auth Rad Tx [place] IMRT COMPLEX IMRT Lauren Hernandez M.D. 200 [place] [address] [facility] Radiation Oncology at [address] [phone] Referral ID Status Reason Start Date Expiration Date V isits Requested Visits Authorized [id number] Authorized 03/23/2023 03/11/2024 35 35 Encounter Details Date Type Department Care Team (Latest Contact Info) Description 03/31/2023 7:50 AM SKIN CARE SPECIALIST - 03/31/2023 11:59 PM [facility] [[email or web address] Hospital Encounter Department of Radiation Oncology in [address] [phone] Lauren Hernandez M.D. [address] [place] [phone] Discharge Disposition: Home or Self Care Social [...] your living situation today? I have a [facility] place to live 03/01/2023 Sex and Gender Information Value Date Recorded Sex Assigned at Male 03/01/2023 1:25 PM SKIN CARE SPECIALIST Gender Identity Male 03/01/2023 1:25 PM SKIN CARE SPECIALIST Sexual Orientation Not on file documented as [...] st Contact Info) Description 05/07/2023 8:00 AM SKIN CARE SPECIALIST Appointment Department of Radiation Oncology in [address] [phone] Lauren Hernandez M.D. [address] [place] [phone] 05/07/2023 10:00 AM SKIN CARE SPECIALIST Virtual Visit Division of Endocrinology in [place], [place] [address] [place] [phone] Kendra Tinsley APRN, C.N.P. [address] [place] [phone] 05/08/2023 8:00 AM SKIN CARE SPECIALIST Appointment Department of Radiation Oncology in [address] [phone] Lauren Hernandez M.D. [address] [place] [phone] 05/11/2023 8:15 AM SKIN CARE SPECIALIST Appointment Department of Radiation Oncology in [address] [phone] Lauren Hernandez M.D. [address] [place] [phone] documented as of this encounter Visit Diagnoses Not on filedocumented in this encounter
--- OUTSIDE RECORDS SUMMARY | 2023-05-06 10:46 | XMS_ITS | Encounter Summary ---
Author Name Unknown Organization [facility] Address [address] [place] [address] Care Team Providers Care Slab Miller Operator Name Role Phone Unavailable Primary Care Provider Unavailabl e Reason for Visit * Radiation Therapy (Routine) - Authorized Specialty Diagnoses / Procedures Referred By Contac t Referred To Contact Diagnoses Malignant Neoplasm Of Oropharynx (HCC) Procedures Prior Auth Rad Tx [place] IMRT COMPLEX IMRT Lauren Hernandez M.D. 200 [place] [address] [facility] Radiation Oncology at [address] [phone] Referral ID Status Reason Start Date Expiration Date V isits Requested Visits Authorized [id number] Authorized 03/23/2023 03/11/2024 35 35 Encounter Details Date Type Department Care Team (Latest Contact Info) Description 04/02/2023 7:49 AM BUILDER OPERATOR - 04/02/2023 11:59 PM [facility] Hospital Encounter Department of Radiation Oncology in [address] [phone] Lauren Hernandez M.D. [address] [place] [phone] Discharge Disposition: Home or Self Care Social [...] your living situation today? I have a [facility] place to live 03/01/2023 Sex and Gender Information Value Date Recorded Sex Assigned at Male 03/01/2023 1:25 PM BUILDER OPERATOR Gender Identity Male 03/01/2023 1:25 PM BUILDER OPERATOR Sexual Orientation Not on file documented [...] st Contact Info) Description 05/07/2023 8:00 AM BUILDER OPERATOR Appointment Department of Radiation Oncology in [address] [phone] Lauren Hernandez M.D. [address] [place] [phone] 05/07/2023 10:00 AM BUILDER OPERATOR Virtual Visit Division of Endocrinology in [place], [place] [address] [place] [phone] Kendra Tinsley APRN, C.N.P. [address] [place] [phone] 05/08/2023 8:00 AM BUILDER OPERATOR Appointment Department of Radiation Oncology in [address] [phone] Lauren Hernandez M.D. [address] [place] [phone] 05/11/2023 8:15 AM BUILDER OPERATOR Appointment Department of Radiation Oncology in [address] [phone] Laruen Hernandez M.D. [address] [place] [phone] documented as of this encounter Visit Diagnoses Not on filedocumented in this encounter
--- OUTSIDE RECORDS SUMMARY | 2023-05-06 10:47 | XMS_ITS | Encounter Summary ---
Author Name Unknown Organization [facility] Address [address] [place] [address] Care Team Providers Care Solar Sales Specialist Name Role Phone Unavailable Primary Care Provider Unavailabl e Reason for Visit * Radiation Therapy (Routine) - Authorized Specialty Diagnoses / Procedures Referred By Contac t Referred To Contact Diagnoses Malignant Neoplasm Of Oropharynx (HCC) Procedures Prior Auth Rad Tx [place] IMRT COMPLEX IMRT Lauren Hernandez M.D. 200 [place] [address] [facility] Radiation Oncology at [address] [phone] Referral ID Status Reason Start Date Expiration Date V isits Requested Visits Authorized [id number] Authorized 03/23/2023 03/11/2024 35 35 Encounter Details Date Type Department Care Team (Latest Contact Info) Description 03/25/2023 9:26 AM PIPE LAYER - 03/25/2023 11:59 PM [facility] Hospital Encounter Department of Radiation Oncology in [address] [phone] Lauren Hernandez M.D. [address] [place] [phone] Discharge Disposition: Home or Self Care Social [...] Sex Assigned at Male 03/01/2023 1:25 PM PIPE LAYER Gender Identity Male 03/01/2023 1:25 PM PIPE LAYER Sexual Orientation Not on file documented as [...] st Contact Info) Description 05/07/2023 8:00 AM PIPE LAYER Appointment Department of Radiation Oncology in [address] [phone] Lauren Hernandez M.D. [address] [place] [phone] 05/07/2023 10:00 AM PIPE LAYER Virtual Visit Division of Endocrinology in [place], [place] [address] [place] [phone] Kendra Tinsley APRN, C.N.P. [address] [place] [phone] 05/08/2023 8:00 AM PIPE LAYER Appointment Department of Radiation Oncology in [address] [phone] Lauren Hernandez M.D. [address] [place] [phone] 05/11/2023 8:15 AM PIPE LAYER Appointment Department of Radiation Oncology in [address] [phone] Lauren Hernandez M.D. [address] [place] [phone] documented as of this encounter Visit Diagnoses Not on filedocumented in this encounter
--- OUTSIDE RECORDS SUMMARY | 2023-05-06 10:47 | XMS_ITS | Encounter Summary ---
Author Name Unknown Organization [facility] Address [address] [place] [address] Care Team Providers Care Coding Educator Name Role Phone Unavailable Primary Care Provider Unavailabl e Reason for Referral * Radiation Therapy (Routine) - Authorized Specialty Diagnoses / Procedures Referred By Diamond montemayor Referred To Contact Diagnoses Malignant Neoplasm Of Oropharynx (HCC) Procedures Management Visit Lauren Hernandez M.D. 200 [place] [address] [facility] Region Referral ID Status Reason Start Date Expiration Date V isits Requested Visits Authorized [id number] Authorized 03/12/2023 03/11/2024 10 10 IAL TRACKWORK BLACKSMITH Reason for Visit * Radiation Therapy (Routine) - Authorized Specialty Diagnoses / Procedures Referred By Diamond montemayor Referred To Contact Diagnoses Malignant Neoplasm Of Oropharynx (HCC) Procedures Management Visit Lauren Hernandez M.D. 200 [place] [address] [facility] Region Referral ID Status Reason Start Date Expiration Date V isits Requested Visits Authorized [id number] Authorized 03/12/2023 03/11/2024 10 10 Encounter Details Date Type Department Care Team (Latest Contact Info) Description 03/26/2023 8:25 AM SPECIAL TRACKWORK BLACKSMITH Hospital Encounter Department of Radiation Oncology in [place] [address] [place] [phone] Lauren Hernandez M.D. 200 [place] [address] Malignant Neoplasm Of Tonsil (HCC) (Primary Dx); [...] Sex Assigned at Male 03/01/2023 1:25 PM SPECIAL TRACKWORK BLACKSMITH Gender Identity Male 03/01/2023 1:25 PM SPECIAL TRACKWORK BLACKSMITH Sexual Orientation Not on file documented as of this encounter Last Filed Vital Signs Vital Sign Reading Time Taken Comments Blood Pressure 119/65 03/26/2023 9:00 AM SPECIAL TRACKWORK BLACKSMITH Pulse 56 03/26/2023 9:00 AM SPECIAL TRACKWORK BLACKSMITH Temperature 36.3 ??C (97.3 ??F) 03/26/2023 9:00 AM CS T Respiratory Rate - - Oxygen Saturation - - Inhaled Oxygen Concentration - - Weight 124 kg (274 lb 7.6 oz) 03/26/2023 9:00 AM SPECIAL TRACKWORK BLACKSMITH Height - - Body Mass Index - - documented in this encounter Medications at Time [...] Progress Notes * Lauren Hernandez M.D. - 03/26/2023 9:15 AM CST ATTESTATION FOR MANAGEMENT VISIT I saw and evaluated the patient and participated in the zhang portions of the service as noted below.I reviewed the documentation of Ms. Ramandeep Sanz RN and agree with the findings and plan. Thepatient appears well on exam. He believes the neck nodes are decreasing in size. We will continue with radiation as planned and monitor weekly. Lauren Hernandez M.D., 03/26/2023 SUBJECTIVE REASON FOR VISIT Evaluation for side effects while receiving radiation treatment for 1. Malignant Neoplasm Of Tonsil (HCC) 2. Malignant Neoplasm Of Oropharynx (HCC) SUPERVISED BY: Lauren Hernandez M.D. HISTORY OF PRESENT ILLNESS Mr. Tad Roland is a 68 y.o. 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 He is receiving weekly Cisplatin under the care of Dr. Wu at [facility]. Treatment Course: 1xOpx Plan ID Fractions Dose / Fraction (cGy) Dose Treated (cGy) Dose Planned (cGy) First Treatment Last Treatment Elapsed Days F1Opx [phone] 03/23/2023 03/26/2023 3 Course Summary 03/23/2023 03/26/2023 3 The patient was seen and examined today with Dr. Hernandez. The patient reports to be feeling well overall. He has baseline pain at the back of his throat thathe rates a 1 out of 10. He has noticed dry mouth starting to develop. He is eating a regular and drinking 80 oz of water a day. He is applying lotion once daily to treatment field. He denies any other side effects from radiation at this time. He had is first dose of Cisplatin on March 24, 2023. He denies any chemo related nausea. PATIENT REPORTED SYMPTOM SCREEN FATIGUE (Scale: 0 = no fatigue; 10 = worst fatigue you can imagine): 4 PAIN (Scale: 0 = no pain; 10 = worst pain you can imagine): 1 OVERALL QUALITY OF LIFE (Scale: 0 = as bad as can be; 10 = as good as can be): 8 OBJECTIVE BP 119/65 (BP Location: Right arm, Patient Position: Sitting, Cuff Size: Large) Pulse (!) 56 Temp 36.3 ??C (Temporal) Wt 124 kg WEIGHTS 03/13/2023: 122 kg PHYSICAL EXAM General: Alert and oriented in no apparent distress. Skin: No erythema or signs of infection to treatment field. 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 The patient is tolerating radiation treatment well overall. Discussed with patient that he can apply lotion to treatment field twice daily. Provided patient with Dry Mouth education pamphlet, reviewed the use of baking soda swishes and provided the patient with a sample of Biotene mouth spray. Patient will meet with our dietitian today. His has a nurse education visit scheduled for later this week. He will continue with radiation treatment as planned. He can contact our care team with any questions or concerns. Signed by: Ramandeep Sanz R.N. 03/26/2023 9:50 AM SPECIAL TRACKWORK BLACKSMITH IAL TRACKWORK BLACKSMITH documented in this encounter Plan of Treatment Upcoming Encounters Date Type Department Care Team (Late st Contact Info) Description 05/07/2023 8:00 AM SPECIAL TRACKWORK BLACKSMITH Appointment Department of Radiation Oncology in [address] [phone] Lauren Hernandez M.D. [address] [place] [phone] 05/07/2023 10:00 AM SPECIAL TRACKWORK BLACKSMITH Virtual Visit Division of Endocrinology in [place], [place] [address] [place] [phone] Kendra Tinsley APRN, C.N.P. [address] [place] [phone] 05/08/2023 8:00 AM SPECIAL TRACKWORK BLACKSMITH Appointment Department of Radiation Oncology in [address] [phone] Lauren Hernandez M.D. [address] [place] [phone] 05/11/2023 8:15 AM SPECIAL TRACKWORK BLACKSMITH Appointment Department of Radiation Oncology in [address] [phone] Laruen Hernandez M.D. 200 [place] [phone] Scheduled Orders Name Type Priority Associated Diagnoses Orde r Schedule Management Visit Radiation Oncology Routine Malignant Neoplasm Of Oropharynx (HCC) Once for 1 Occurrences starting 03/26/2023 until 03/26/2023 documented as of this encounter Visit Diagnoses Diagnosis Malignant Neoplasm Of Tonsil (HCC)- Primary Malignant Neoplasm Of Oropharynx (HCC) documented in this encounter
--- OUTSIDE RECORDS SUMMARY | 2023-05-06 10:47 | XMS_ITS | Encounter Summary ---
Author Name Unknown Organization [facility] Address [address] [place] [address] Care Team Providers Care Apparel Designer Name Role Phone Unavailable Primary Care Provider Unavailabl e Encounter Details Date Type Department Care Team (Latest Contact Info) Description 03/13/2023 11:30 AM MACHINE CLOTHING REPLACER Clinical Support Department of Dental Specialties in [place], [place] [address] [place] [address] Joe Moseley B.D.S. [address] [place] [address] Malignant Neoplasm Of Oropharynx (HCC) (Primary Dx); Malignant Neoplasm Of Tonsil (HCC); Secondary Malignant Neoplasm Lymph Node (HCC) Social History Tobacco Use Types Packs/Day [...] your living situation today? I have a [facility] place to live 03/01/2023 Sex and Gender Information Value Date Recorded Sex Assigned at Male 03/01/2023 1:25 PM MACHINE CLOTHING REPLACER Gender Identity Male 03/01/2023 1:25 PM MACHINE CLOTHING REPLACER Sexual Orientation Not on file documented as of this encounter Progress Notes * Joe Moseley B.D.SFco - 03/13/2023 11:30 AM CST REASON FOR VISIT Tad Roland is a 68 y.o. male who requested fluoride carriers be mailed to his home. ASSESSMENT / PLAN #1 Malignant Neoplasm Of Oropharynx (HCC) #2 Malignant Neoplasm Of Tonsil (HCC) #3 Secondary Malignant Neoplasm Lymph Node (HCC) Fluoride carriers were mailed out today along with instructions for use: 1. [place] and floss prior to use of fluoride carriers 2. Rinse mouth with baking soda mixed with water 3. Squeeze a thin ribbon of fluoride into the carriers 4. Wear the fluoride carriers for 5 minutes 5. Remove the fluoride carriers and expectorate excess from mouth 6. Do not rinse mouth, eat, or drink for 30 minutes following fluoride therapy 7. Clean trays with antibacterial soap and room temperature water 8. Repeat daily as a lifelong therapy The patient???s casts were also mailed to patient. A folder was provided at previous visit containing patient education materials and fluoride prescription. Questions were welcomed and answered to the best of my ability and patient reports no further questions at this time. Next Visit: Patient to return to local dentist Valentin Taylor initiated documentation on behalf of Joe Sanchez B.D.S. who completed documentation and performed the service(s). INE CLOTHING REPLACER documented in this encounter Plan of Treatment Upcoming Encounters Date Type Department Care Team (Late st Contact Info) Description 05/07/2023 8:00 AM MACHINE CLOTHING REPLACER Appointment Department of Radiation Oncology in [address] [phone] Lauren Hernandez M.D. [address] [place] [phone] 05/07/2023 10:00 AM MACHINE CLOTHING REPLACER Virtual Visit Division of Endocrinology in [place], [place] [address] [place] [phone] Kendra Tinsley APRN, C.N.P. [address] [place] [phone] 05/08/2023 8:00 AM MACHINE CLOTHING REPLACER Appointment Department of Radiation Oncology in [address] [phone] Lauren Hernandez M.D. [address] [place] [phone] 05/11/2023 8:15 AM MACHINE CLOTHING REPLACER Appointment Department of Radiation Oncology in [address] [phone] Lauren Hernandez M.D. [address] [place] [phone] documented as of this encounter Procedures Procedure Name Priority Date/Time Associated Diagnosis Comments [place] FLUORIDE APPL TRAYS UPPER & LOWER Routine 03/13/2023 11:30 AM MACHINE CLOTHING REPLACER Malignant Neoplasm Of Oropharynx (HCC) 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) documented in this encounter Visit Diagnoses Diagnosis Malignant Neoplasm Of Oropharynx (HCC)- Primary 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) documented in this encounter
--- OUTSIDE RECORDS SUMMARY | 2023-05-06 10:47 | XMS_ITS | Encounter Summary ---
Author Name Unknown Organization [facility] Address [address] [place] [address] Care Team Providers Care Tribal Delegate Name Role Phone Unavailable Primary Care Provider Unavailabl e Reason for Referral * Radiation Therapy (Routine) - Closed Specialty Diagnoses / Procedures Referred By Diamond montemayor Referred To Contact Diagnoses Malignant Neoplasm Of Oropharynx (HCC) Procedures Initial Rad Onc Treatment Planning CT Simulation Lauren Hernandez M.D. 200 [place] [address] [facility] Region Referral ID Status Reason Start Date Expiration Date Visits Re quested Visits Authorized [id number] Closed 03/12/2023 03/11/2024 1 1 COORDINATOR Reason for Visit * Radiation Therapy (Routine) - Closed Specialty Diagnoses / Procedures Referred By Diamond montemayor Referred To Contact Diagnoses Malignant Neoplasm Of Oropharynx (HCC) Procedures Initial Rad Onc Treatment Planning CT Simulation Lauren Hernandez M.D. [address] [place] [address] [facility] Region Referral ID Status Reason Start Date Expiration Date Visits Re quested Visits Authorized [id number] Closed 03/12/2023 03/11/2024 1 1 Encounter Details Date Type Department Care Team (Latest Contact Info) Description 03/13/2023 2:07 PM CRM COORDINATOR - 03/14/2023 6:30 AM CRM COORDINATOR Hospital Encounter Department of Radiation Oncology in [place], [place] [address] [place] [phone] Lauren Hernnadez M.D. [address] [place] [phone] Malignant Neoplasm Of Oropharynx (HCC) Social History [...] your living situation today? I have a [facility] place to live 03/01/2023 Sex and Gender Information Value Date Recorded Sex Assigned at Male 03/01/2023 1:25 PM CRM COORDINATOR Gender Identity Male 03/01/2023 1:25 PM CRM COORDINATOR Sexual Orientation Not on file documented [...] (SYNTHROID, LEVOTHROID) 125 mcg tablet 0 02/25/2023 rivaroxaban (XARELTO) 20 mg tablet rivaroxaban 20 [...] 07/09/2017 04/03/2023 documented as of this encounter Procedure Notes * Gregoria Vega, RTT - 03/13/2023 2:15 PM CSTAssociated Order(s): Initial Rad Onc Treatment Planning CT Simulation Pre-Procedure Diagnose(s): Malignant Neoplasm Of Oropharynx (HCC) Post-Procedure Diagnose(s): Malignant Neoplasm Of Oropharynx (HCC) Initial Rad Onc Treatment Planning CT Simulation Performed by: Lauren Hernandez M.D. Authorized by: Lauren Hernandez M.D. Simulation was performed under physician supervision based on physician order in preparation for radiation therapy. Physician was immediately available to provide assistance and direction throughout the procedure. Written consent for treatment was completed or confirmed. The patient was appropriately identified and placed in the treatment position using the necessary immobilization to ensure a reproducible treatment position. Reference murrell were placed to facilitate marking of isocenter. Area scanned:Head and Neck Contrast used for the simulation procedure: IV Patient position:head first supine Custom immobilization: 5 point mask, Custom neck rest, and Custom mouth piece Motion management: None Bolus: No CT guidance: Following positioning of the patient, a series of slices was obtained to be utilized in treatment planning. CT images were transferred to the Eclipse treatment planning system, after a reference isocenter was determined and marked. Segmentation and treatment planning will take place prior to treatment delivery. Patient set up and imaging was appropriate and completed without incident. Two Needle Machine Operator use:No COORDINATOR Associated attestation - Lauren Hernandez M.D. - 03/14/2023 6:30 AM CRM COORDINATOR I was present during all critical and zhang portions of the procedure(s) and immediately available tofurnish services the entire duration. See note for details. documented in this encounter Plan of Treatment Upcoming Encounters Date Type Department Care Team (Late st Contact Info) Description 05/07/2023 8:00 AM CRM COORDINATOR Appointment Department of Radiation Oncology in [place], [place] [address] [place] [phone] Lauren Hernandez M.D. [address] [place] [phone] 05/07/2023 10:00 AM CRM COORDINATOR Virtual Visit Division of Endocrinology in [place], [place] [address] [place] [phone] Kendra Tinsley APRN, C.N.P. [address] [place] [phone] 05/08/2023 8:00 AM CRM COORDINATOR Appointment Department of Radiation Oncology in [place], [place] [address] [place] [phone] Lauren Hernandez M.D. [address] [place] [phone] 05/11/2023 8:15 AM CRM COORDINATOR Appointment Department of Radiation Oncology in [address] [phone] Lauren Hernandez M.D. [address] [place] [phone] documented as of this encounter Procedures Procedure Name Priority Date/Time Associated Diagnosis Comments INITIAL RAD ONC TREATMENT PLANNING CT SIMULATION Routine 03/13/2023 2:15 PM CRM COORDINATOR Malignant Neoplasm Of Oropharynx (HCC) documented in this encounter Results * Initial Rad Onc Treatment Planning CT Simulation (03/13/2023 2:15 PM CRM COORDINATOR) Narrative [facility] ENE - 03/13/2023 2:15 PM CRM COORDINATOR Gregoria Vega R, RTT ? 03/13/2023 ??2:39 PM Initial Rad Onc Treatment Planning CT Simulation Performed by: Lauren Hernandez M.D. Authorized by: Lauren Hernandez M.D. ?? Lauren Hernandez M.D. RADIATION ONCOLOG Y ORDERABLES Performing Organization Address City/State/[facility] Co de Phone Number RENE LUQUE na documented in this encounter Visit Diagnoses Diagnosis Malignant Neoplasm Of Oropharynx (HCC) documented in this encounter
--- OUTSIDE RECORDS SUMMARY | 2023-05-06 10:47 | XMS_ITS | Encounter Summary ---
Author Name Unknown Organization [facility] Address [address] [place] [address] Care Team Providers Care Live In Caregiver Name Role Phone Unavailable Primary Care Provider Unavailabl e Reason for Visit * Radiation Therapy (Routine) - Authorized Specialty Diagnoses / Procedures Referred By Contac t Referred To Contact Diagnoses Malignant Neoplasm Of Oropharynx (HCC) Procedures Prior Auth Rad Tx [place] IMRT COMPLEX IMRT Lauren Hernandez M.D. 200 [place] [address] [facility] Radiation Oncology at [address] [address] Referral ID Status Reason Start Date Expiration Date V isits Requested Visits Authorized [id number] Authorized 03/23/2023 03/11/2024 35 35 Encounter Details Date Type Department Care Team (Latest Contact Info) Description 03/24/2023 8:12 AM [facility] - 03/24/2023 11:59 PM [facility] Hospital Encounter Department of Radiation Oncology in [address] [phone] Lauren Hernandez M.D. [address] [place] [phone] Discharge Disposition: Home or Self Care Social [...] your living situation today? I have a [facility] place to live 03/01/2023 Sex and Gender Information Value Date Recorded Sex Assigned at Male 03/01/2023 1:25 PM CORPORATE BANKING OFFICER Gender Identity Male 03/01/2023 1:25 PM CORPORATE BANKING OFFICER Sexual Orientation Not on file documented as [...] st Contact Info) Description 05/07/2023 8:00 AM CORPORATE BANKING OFFICER Appointment Department of Radiation Oncology in [address] [phone] Lauren Hernandez M.D. [address] [place] [phone] 05/07/2023 10:00 AM CORPORATE BANKING OFFICER Virtual Visit Division of Endocrinology in [place], [place] [address] [place] [phone] Kendra Tinsley APRN, C.N.P. [address] [place] [phone] 05/08/2023 8:00 AM CORPORATE BANKING OFFICER Appointment Department of Radiation Oncology in [address] [phone] Lauren Hernandez M.D. [address] [place] [phone] 05/11/2023 8:15 AM CORPORATE BANKING OFFICER Appointment Department of Radiation Oncology in [address] [phone] Lauren Hernandez M.D. [address] [place] [phone] documented as of this encounter Visit Diagnoses Not on filedocumented in this encounter
--- OUTSIDE RECORDS SUMMARY | 2023-05-06 10:47 | XMS_ITS | Encounter Summary ---
Author Name Unknown Organization [facility] Address [address] [place] [address] Care Team Providers Care Fur Coat Sewer Name Role Phone Unavailable Primary Care Provider Unavailabl e Reason for Visit * Radiation Therapy (Routine) - Authorized Specialty Diagnoses / Procedures Referred By Contac t Referred To Contact Diagnoses Malignant Neoplasm Of Oropharynx (HCC) Procedures Prior Auth Rad Tx [place] IMRT COMPLEX IMRT Lauren Hernandez M.D. 200 [place] [address] [facility] Radiation Oncology at [address] [phone] Referral ID Status Reason Start Date Expiration Date V isits Requested Visits Authorized [id number] Authorized 03/23/2023 03/11/2024 35 35 Encounter Details Date Type Department Care Team (Latest Contact Info) Description 03/30/2023 7:46 AM ASSOCIATE PROFESSOR OF GEOLOGY - 03/30/2023 11:59 PM [facility] Hospital Encounter Department of Radiation Oncology in [address] [phone] Lauren Hernandez M.D. [address] [place] [phone] Discharge Disposition: Home or Self Care Social [...] your living situation today? I have a [facility] place to live 03/01/2023 Sex and Gender Information Value Date Recorded Sex Assigned at Male 03/01/2023 1:25 PM ASSOCIATE PROFESSOR OF GEOLOGY Gender Identity Male 03/01/2023 1:25 PM ASSOCIATE PROFESSOR OF GEOLOGY Sexual Orientation Not on file documented as [...] st Contact Info) Description 05/07/2023 8:00 AM ASSOCIATE PROFESSOR OF GEOLOGY Appointment Department of Radiation Oncology in [address] [phone] Lauren Hernandez M.D. [address] [place] [phone] 05/07/2023 10:00 AM ASSOCIATE PROFESSOR OF GEOLOGY Virtual Visit Division of Endocrinology in [place], [place] [address] [place] [phone] Kendra Tinsley APRN, C.N.P. [address] [place] [phone] 05/08/2023 8:00 AM ASSOCIATE PROFESSOR OF GEOLOGY Appointment Department of Radiation Oncology in [address] [phone] Lauren Hernandez M.D. [address] [place] [phone] 05/11/2023 8:15 AM ASSOCIATE PROFESSOR OF GEOLOGY Appointment Department of Radiation Oncology in [address] [phone] Lauren Hernandez M.D. [address] [place] [phone] documented as of this encounter Visit Diagnoses Not on filedocumented in this encounter
--- OUTSIDE RECORDS SUMMARY | 2023-05-06 10:47 | XMS_ITS | Encounter Summary ---
Author Name Unknown Organization [facility] Address [address] [place] [address] Care Team Providers Care Coach Cleaner Name Role Phone Unavailable Primary Care Provider Unavailabl e Reason for Visit * Radiation Therapy (Routine) - Authorized Specialty Diagnoses / Procedures Referred By Contac t Referred To Contact Diagnoses Malignant Neoplasm Of Oropharynx (HCC) Procedures Prior Auth Rad Tx [place] IMRT COMPLEX IMRT Lauren Hernandez M.D. 200 [place] [address] [facility] Radiation Oncology at [address] [address] Referral ID Status Reason Start Date Expiration Date V isits Requested Visits Authorized [id number] Authorized 03/23/2023 03/11/2024 35 35 Encounter Details Date Type Department Care Team (Latest Contact Info) Description 03/23/2023 3:05 PM COUNTERINTELLIGENCE SPECIALIST - 03/23/2023 11:59 PM [facility] Hospital Encounter Department of Radiation Oncology in [address] [phone] Lauren Hernandez M.D. [address] [place] [phone] Discharge Disposition: Home or Self Care Social [...] Sex Assigned at Male 03/01/2023 1:25 PM COUNTERINTELLIGENCE SPECIALIST Gender Identity Male 03/01/2023 1:25 PM COUNTERINTELLIGENCE SPECIALIST Sexual Orientation Not on file documented [...] st Contact Info) Description 05/07/2023 8:00 AM COUNTERINTELLIGENCE SPECIALIST Appointment Department of Radiation Oncology in [address] [phone] Lauren Hernandez M.D. [address] [place] [phone] 05/07/2023 10:00 AM COUNTERINTELLIGENCE SPECIALIST Virtual Visit Division of Endocrinology in [place], [place] [address] [place] [phone] Kendra Tinsley APRN, C.N.P. [address] [place] [phone] 05/08/2023 8:00 AM COUNTERINTELLIGENCE SPECIALIST Appointment Department of Radiation Oncology in [address] [phone] Lauren Hernandez M.D. [address] [place] [phone] 05/11/2023 8:15 AM COUNTERINTELLIGENCE SPECIALIST Appointment Department of Radiation Oncology in [address] [phone] Lauren Hernandez M.D. [address] [place] [phone] documented as of this encounter Visit Diagnoses Not on filedocumented in this encounter
--- OUTSIDE RECORDS SUMMARY | 2023-05-06 10:47 | XMS_ITS | Encounter Summary ---
Author Name Unknown Organization [facility] Address [address] [place] [address] Care Team Providers Care Escalation Engineer Name Role Phone Unavailable Primary Care Provider Unavailabl e Reason for Visit * Radiation Therapy (Routine) - Authorized Specialty Diagnoses / Procedures Referred By Contac t Referred To Contact Diagnoses Malignant Neoplasm Of Oropharynx (HCC) Procedures Prior Auth Rad Tx [place] IMRT COMPLEX IMRT Lauren Hernandez M.D. [address] [place] [address] [facility] Radiation Oncology at [address] [phone] Referral ID Status Reason Start Date Expiration Date V isits Requested Visits Authorized [id number] Authorized 03/23/2023 03/11/2024 35 35 Encounter Details Date Type Department Care Team (Latest Contact Info) Description 03/27/2023 8:04 AM FLIGHT OPERATIONS INSPECTOR - 03/27/2023 11:59 PM [facility] Hospital Encounter Department of Radiation Oncology in [address] [phone] Lauren Hernandez M.D. [address] [place] [phone] Discharge Disposition: Home or Self Care Social [...] your living situation today? I have a [facility] place to live 03/01/2023 Sex and Gender Information Value Date Recorded Sex Assigned at Male 03/01/2023 1:25 PM FLIGHT OPERATIONS INSPECTOR Gender Identity Male 03/01/2023 1:25 PM FLIGHT OPERATIONS INSPECTOR Sexual Orientation Not on file documented as [...] st Contact Info) Description 05/07/2023 8:00 AM FLIGHT OPERATIONS INSPECTOR Appointment Department of Radiation Oncology in [address] [phone] Lauren Hernandez M.D. [address] [place] [phone] 05/07/2023 10:00 AM FLIGHT OPERATIONS INSPECTOR Virtual Visit Division of Endocrinology in [place], [place] [address] [place] [phone] Kendra Tinsley APRN, C.N.P. [address] [place] [phone] 05/08/2023 8:00 AM FLIGHT OPERATIONS INSPECTOR Appointment Department of Radiation Oncology in [address] [phone] Lauren Hernandez M.D. [address] [place] [phone] 05/11/2023 8:15 AM FLIGHT OPERATIONS INSPECTOR Appointment Department of Radiation Oncology in [address] [phone] Lauren Hernandez M.D. [address] [place] [phone] documented as of this encounter Visit Diagnoses Not on filedocumented in this encounter
--- OUTSIDE RECORDS SUMMARY | 2023-05-06 10:47 | XMS_ITS | Encounter Summary ---
Author Name Unknown Organization [facility] Address [address] [place] [address] Care Team Providers Care Rn Team Leader Name Role Phone Unavailable Primary Care Provider Unavailabl e Reason for Referral * Outpatient (Routine) - Authorized Specialty Diagnoses / Procedures Referred By Contac t Referred To Contact Nutrition Diagnoses Malignant Neoplasm Of Oropharynx (HCC) Ashlee Go APRN, C.N.P., D.N.P. [address] [place] [phone] [facility] Region Referral ID Status Reason Start Date Expiration Date V isits Requested Visits Authorized [id number] Authorized 03/12/2023 03/11/2024 5 5 BOLTER Reason for Visit * Outpatient (Routine) - Authorized Specialty Diagnoses / Procedures Referred By Contac t Referred To Contact Nutrition Diagnoses Malignant Neoplasm Of Oropharynx (HCC) Ashlee Go APRN, C.N.P., D.N.P. [address] [place] [phone] [facility] Region Referral ID Status Reason Start Date Expiration Date V isits Requested Visits Authorized [id number] Authorized 03/12/2023 03/11/2024 5 5 Encounter Details Date Type Department Care Team ([facility] st Contact Info) Description 03/26/2023 8:26 AM ROOF BOLTER - 03/26/2023 11:59 PM ROOF BOLTER Hospital Encounter Department of Radiation Oncology in [place], [place] [address] [place] [phone] Ashlee Go, KELLY MACHINE OPERATOR, C.N.P., D.N.P. [address] [place] [address] Yolis Eric RDN [address] [place] [address] Malignant Neoplasm Of Oropharynx (HCC) Discharge Disposition: [...] your living situation today? I have a [facility] place to live 03/01/2023 Sex and Gender Information Value Date Recorded Sex Assigned at Male 03/01/2023 1:25 PM ROOF BOLTER Gender Identity Male 03/01/2023 1:25 PM ROOF BOLTER Sexual Orientation Not on file documented as of this encounter Last Filed Vital Signs Vital Sign Reading Time Taken Comments Blood Pressure - - Pulse - - Temperature - - Respiratory Rate - - Oxygen Saturation - - Inhaled Oxygen Concentration - - Weight 124 kg (274 lb 7.6 oz) 03/26/2023 9:05 AM ROOF BOLTER Height 170 cm (5' 6.93) 03/26/2023 9:06 AM ROOF BOLTER Body Mass Index 43.08 03/26/2023 9:05 AM ROOF BOLTER documented in this encounter Medications at Time [...] as of this encounter Progress Notes * Yolis Eric, MANNY - 03/26/2023 9:30 AM CST CHIEF COMPLAINT/REASON FOR VISIT Malignant Neoplasm Of Oropharynx (HCC) [C10.9] HISTORY OF PRESENT ILLNESS Mr. Roland is a 68 y.o. year old male with a left glossotonsillar mass and associated left neck adenopathy. He started radiation therapy on March 23. He will also be receiving chemotherapy at [facility]. PAST MEDICAL HISTORY The medical history was reviewed today from the electronic medical record. Please see the electronic medical record for complete details of the PAST MEDICAL HISTORY. Met with patient and spouse. ASSESSMENT Relevant Social and Family History Mr. Roland lives with his spouse, Eva in [place]. Nutrition Focused Physical Findings Mouth/esophagus/Throat: Mild sore throat. Dry mouth. Bowels: Slight constipation. Patient reports he did have a bowel movement this morning. Nausea/vomiting: none Speech Pathology Dysphagia Videofluoroscopic Swallow Study (VFSS) 03/09/23: Diagnosis: Normal oropharyngeal swallow Recommendations: 1. Continue a regular diet and thin liquids 2. Pills per patient preference 3. Instruction and training in swallowing exercises, if indicated after treatment plan is determined Food/Nutrition Related History Breakfast is cheerios with milk, ham sandwich with lettuce and tomato, or bagel with peanut butter.Sometimes he has a banana with breakfast. Lunch is often leftovers. Supper, last night, was a chicken salad wrap. Supper also might be grilled chicken lettuce salad or hot dish. He reports grazing between meals on fruit, vegetable or bread and butter. He drinks water, apple juice or milk with mealsand between meals. He reports increasing his water intake. He has stopped drinking pop. He does notdrink alcohol. Weight History Date: 03/26/23: Weight: 124.5 kg Height 170 cm Body mass index is 43.1 kg/m??. Patient reports UBW is approximately 120 kg (264#). 03/13/23: 122 kg - Starting weight 03/05/23: 119 kg Estimation of Nutritional Needs Weight Used for Equation Calculations: 80.4 kg (Adj. Wt.) Date: 03/13/23 Total Calorie Needs: 4899-8653 (HB basal to basal + 20%) Estimated [...] 95-105+ grams protein, 12+ cups fluid INTERVENTION Education: Discussed importance of weight maintenance during treatment and goal of maintaining weight within 5-10% of starting weight. Provided patient with calorie, protein and fluid goals. Discussed different options for nutrition supplements. Also discussed ideas for making smoothies/shakes. Nutrition supplement samples were provided. He reports that he does have some ensure at home. Discussedtips for managing constipation with foods and fluids as well as using miralax and senna-s if needed. Discussed possible need for feeding tube if he is unable to meet nutrition needs with po intake. Eating Hints for Cancer booklet provided as well as Calorie and Protein Content of Common Foods. MONITORING AND EVALUATION: Nutrition parameter to monitor: Weight Desired Outcome: Maintain weight within 5-10% of treatment start weight Patient Goal(s): 1. Current diet with addition of nutrition supplements to meet estimated nutrition needs. 2. Aim for 12+ cups of fluid per day. 3. Track calorie, protein and fluid intake. FOLLOW UP PLAN: He will follow up in 2 weeks. RDN's contact information provided and he was encouraged to call withquestions. Time spent with patient (minutes): 30 BOLTER documented in this encounter Plan of Treatment Upcoming Encounters Date Type Department Care Team (Late st Contact Info) Description 05/07/2023 8:00 AM ROOF BOLTER Appointment Department of Radiation Oncology in [place], [place] [address] [place] [phone] Lauren Hernandez M.D. [address] [place] [phone] 05/07/2023 10:00 AM ROOF BOLTER Virtual Visit Division of Endocrinology in [place], [place] [address] [place] [phone] Kendra Tinsley, PATRICE, C.N.P. [address] [place] [phone] 05/08/2023 8:00 AM ROOF BOLTER Appointment Department of Radiation Oncology in [place], [place] [address] [place] [phone] Lauren Hernandez M.D. [address] [place] [phone] 05/11/2023 8:15 AM ROOF BOLTER Appointment Department of Radiation Oncology in [place], [place] [address] [place] [phone] Lauren Hernandez M.D. 200 [place] [phone] Scheduled Referrals Name Type Priority Associated Diagnoses Order Schedule Nutrition - Medical nutrition therapy consult (clinic) Outpatient Referral Routine Malignant Neoplasm Of Oropharynx (HCC) Once for 1 Occurrences starting 03/26/2023 until 03/26/2023 documented as of this encounter Visit Diagnoses Diagnosis Malignant Neoplasm Of Oropharynx (HCC) documented in this encounter
--- OUTSIDE RECORDS SUMMARY | 2023-05-06 10:47 | XMS_ITS | Encounter Summary ---
Author Name Unknown Organization [facility] Address [address] [place] [phone] Care Team Providers Care Rehabilitation Clerk Name Role Phone Unavailable Primary Care Provider Unavailabl e Encounter Details Date Type Department Care Team (Late st Contact Info) Description 03/13/2023 Clinical Communication Department of Dental Specialties in [place], [place] [address] [place] [phone] Joe Moseley B.D.S. [address] [place] [phone] Social History Tobacco Use Types Packs/Day Years [...] your living situation today? I have a [facility] place to live 03/01/2023 Sex and Gender Information Value Date Recorded Sex Assigned at Male 03/01/2023 1:25 PM DANCE CHOREOGRAPHER Gender Identity Male 03/01/2023 1:25 PM DANCE CHOREOGRAPHER Sexual Orientation Not on file documented as of this encounter Plan of Treatment Upcoming Encounters Date Type Department Care Team (Late st Contact Info) Description 05/07/2023 8:00 AM DANCE CHOREOGRAPHER Appointment Department of Radiation Oncology in [address] [phone] Lauren Hernandez M.D. 200 [place] [phone] 05/07/2023 10:00 AM DANCE CHOREOGRAPHER Virtual Visit Division of Endocrinology in [place], [place] 200 [place] [phone] Kendra Tinsley APRN, C.N.P. [address] [place] [phone] 05/08/2023 8:00 AM DANCE CHOREOGRAPHER Appointment Department of Radiation Oncology in [address] [phone] Lauren Hernandez M.D. [address] [place] [phone] 05/11/2023 8:15 AM DANCE CHOREOGRAPHER Appointment Department of Radiation Oncology in [place], [place] [address] [place] [phone] Lauren Hernandez M.D. 200 [place] [phone] documented as of this encounter Visit Diagnoses Not on filedocumented in this encounter
--- OUTSIDE RECORDS SUMMARY | 2023-05-06 10:47 | XMS_ITS | Encounter Summary ---
Author Name Unknown Organization [facility] Address [address] [place] [address] Care Team Providers Care [facility] Consultant Name Role Phone Unavailable Primary Care Provider Unavailabl e Reason for Visit * Radiation Therapy (Routine) - Authorized Specialty Diagnoses / Procedures Referred By Contac t Referred To Contact Diagnoses Malignant Neoplasm Of Oropharynx (HCC) Procedures Prior Auth Rad Tx [place] IMRT COMPLEX IMRT Lauren Hernandez M.D. [address] [place] [phone] [facility] Radiation Oncology at [place] [address] [place] [phone] Referral ID Status Reason Start Date Expiration Date V isits Requested Visits Authorized [id number] Authorized 03/23/2023 03/11/2024 35 35 Encounter Details Date Type Department Care Team (Latest Contact Info) Description 03/26/2023 8:24 AM [facility] Hospital Encounter Department of Radiation Oncology in [place], [place] [address] [place] [phone] Lauren Hernandez M.D. [address] [place] [phone] Discharge Disposition: Home or Self Care Social [...] your living situation today? I have a [facility] place to live 03/01/2023 Sex and Gender Information Value Date Recorded Sex Assigned at Male 03/01/2023 1:25 PM CORPORATE SECRETARY Gender Identity Male 03/01/2023 1:25 PM CORPORATE SECRETARY Sexual Orientation Not on file documented as [...] Contact Info) Description 05/07/2023 8:00 AM CORPORATE SECRETARY Appointment Department of Radiation Oncology in [place], [place] [address] [place] [phone] Lauren Hernandez M.D. [address] [place] [phone] 05/07/2023 10:00 AM CORPORATE SECRETARY Virtual Visit Division of Endocrinology in [place], [place] [address] [place] [phone] Kendra Tinsley, PATRICE, C.N.P. [address] [place] [phone] 05/08/2023 8:00 AM CORPORATE SECRETARY Appointment Department of Radiation Oncology in [place], [place] [address] [place] [phone] Lauren Hernandez M.D. [address] [place] [phone] 05/11/2023 8:15 AM CORPORATE SECRETARY Appointment Department of Radiation Oncology in [place], [place] [address] [place] [phone] Lauren Hernandez M.D. [address] [place] [phone] documented as of this encounter Visit Diagnoses Not on filedocumented in this encounter
--- OUTSIDE RECORDS SUMMARY | 2023-05-06 10:48 | XMS_ITS | Encounter Summary ---
Author Name Unknown Organization [facility] Address [address] [place] [address] Care Team Providers Care Shaft Sinker Name Role Phone Unavailable Primary Care Provider Unavailabl e Reason for Referral * Outpatient (Routine) - Closed Specialty Diagnoses / Procedures Referred By Diamond montemayor Referred To Contact Radiation Oncology Diagnoses Malignant Neoplasm Of Oropharynx (HCC) Fracisco Barron P.A.-C. [address] [place] [phone] [facility] Referral ID Status Reason Start Date Expiration Date Visits Re quested Visits Authorized [id number] Closed 03/10/2023 03/09/2024 1 1 Scheduling Instructions [place] TION INSPECTOR Reason for Visit * Outpatient (Routine) - Closed Specialty Diagnoses / Procedures Referred By Diamond montemayor Referred To Contact Radiation Oncology Diagnoses Malignant Neoplasm Of Oropharynx (HCC) Fracisco Barron P.A.-C. [address] [place] [phone] [facility] Referral ID Status Reason Start Date Expiration Date Visits Re quested Visits Authorized [id number] Closed 03/10/2023 03/09/2024 1 1 Encounter Details Date Type Department Care Team (Latest Contact Info) Description 03/13/2023 12:20 PM TAXATION INSPECTOR - 03/13/2023 1:59 PM TAXATION INSPECTOR Hospital Encounter Department of Radiation Oncology in [place], [place] [address] [place] [phone] Lauren Hernandez M.D. [address] [place] [phone] Malignant Neoplasm Of Tonsil (HCC) (Primary Dx); Malignant Neoplasm Of Oropharynx (HCC); Secondary Malignant Neoplasm Lymph Node Neck (HCC) Social History Tobacco Use Types Packs/Day [...] your living situation today? I have a [facility] place to live 03/01/2023 Sex and Gender Information Value Date Recorded Sex Assigned at Male 03/01/2023 1:25 PM TAXATION INSPECTOR Gender Identity Male 03/01/2023 1:25 PM TAXATION INSPECTOR Sexual Orientation Not on file documented as of this encounter Last Filed Vital Signs Vital Sign Reading Time Taken Comments Blood Pressure 134/69 03/13/2023 12:56 PM TAXATION INSPECTOR Pulse 60 03/13/2023 12:56 PM TAXATION INSPECTOR Temperature 36.4 ??C (97.6 ??F) 03/13/2023 12:[address] Respiratory Rate - - Oxygen Saturation - - Inhaled Oxygen Concentration - - Weight 122 kg (268 lb 11.9 oz) 03/13/2023 12:56 PM TAXATION INSPECTOR Height - - Body Mass Index - [...] 07/09/2017 04/03/2023 documented as of this encounter Consult Notes * Ashlee Go APRN, C.N.P., D.N.P. - 03/13/2023 1:00 PM CST SUBJECTIVE REQUESTING PROVIDER Fracisco Barron, Jaime. REASON FOR CONSULT 1. Malignant Neoplasm Of Tonsil (HCC) 2. Malignant Neoplasm Of Oropharynx (HCC) 3. Secondary Malignant Neoplasm Lymph Node Neck (HCC) SUPERVISED BY: Lauren Hernandez M.D. HISTORY OF PRESENT ILLNESS Mr. Tad Roland is a 68 y.o. 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 His oncologic history is as follows: Oncology History Malignant Neoplasm Of Tonsil (HCC) 11/2022 Other The patient developed a mild sore throat that was progressive and then he noted a left neck mass. 02/02/2023 Critical Imaging US soft tissue head neck demonstrated an enlarged lymph node within the left side of the neck measuring 3.0 x 1.5 x 1.7 cm. 02/12/[address] soft tissue neck demonstrated an enhancing soft tissue mass involving the left palatine tonsil and glossal tonsillar sulcus measuring up to 2.9 cm, abutting the left hypoglossus. No evidence pterygoid musculature, skull base, or laryngeal involvement. Multiple prominent left cervical lymph nodeswith foci of internal hypoattenuation suggestive of necrosis. Left level IIa nodes measuring 1.2 cm, 1.8 cm, and 1.9 cm. Left level IIb nodes measuring 1.3 cm, 1.6 cm, and 1.4 cm. Mildly prominent left anterior parotid lymph node with normal central fatty hilum. 02/26/2023 Critical Imaging US Thyroid IMPRESSION: 1. The thyroid gland is markedly heterogeneous with no distinct focal abnormality or nodule, which may reflect changes of thyroiditis. 2. 5 abnormal appearing nodes are identified in the left level 2 neck. The largest palpable node measures up to 2.8 cm and is amenable to biopsy. 03/02/2023 Critical Imaging PET/CT scan demonstrated focal intense FDG uptake within the left tonsil and tongue base, SUV max 17.7. Multiple metastatic FDG avid left cervical level 2A and 2B nodes, the largest and most avid measuring 13 mm, SUV max 9.4. Low-level uptake within multiple additional normal-sized bilateral cervical lymph nodes, likely reactive. No pathologic right-sided cervical lymphadenopathy. Heterogeneous uptake throughout the thyroid gland suggesting thyroiditis. Focal uptake within a markedly redundant sigmoid colon in an area of diverticulosis, could represent a focally inflamed diverticulum or an FDG avid colonic polyp, recommend colonoscopy. Soft tissue thickening with increased uptake along the r ight femoral neck, SUV max 6.1, could represent focal synovitis. 03/05/2023 Biopsy/Pathology Ultrasound-guided biopsy of an enlarged left neck level 2/3 lymph node was performed. A. Lymph node, Left neck, fine needle aspiration (smears/core biopsy): Positive for malignancy. 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 Immunostains performed on block A1 show the neoplastic cells are positive for p40 and p16 (strong, diffuse), while negative for NUT. HPV (E6/E7) High Risk RODRÍGUEZ performed on block A1 is positive. This indicates positivity for one or more of the following types: 16, 18, 26, 31, 33, 35, 39, 45, 51, 52, 53, 56, 58, 59, 66, 68, 73, and 82. 03/05/2023 Other ENT consultation with Dr. David Soto. Physical examination including flexible fiberoptic laryngoscopy demonstrated a palpable left level 2 node, 2-3 cm, mobile and a firm mass in the left oropharynx involving the left tonsil and glossotonsillar sulcus area with minimal extension into the left lateral base of tongue; vallecula appeared uninvolved. Discussed that treatment recommendations in this setting would depend on the underlying diagnosis, with upfront surgery favored for HPV-negative or non-squamous cell carcinomas, and likely definitive chemoradiation for HPV associated cancer giventhe number of lymph nodes that appear to be involved. Radiation Oncology consultation with Dr. Parvez Byrd who reviewed that should this be HPV-, he would recommend TORS followed by adjuvant radiation +/- cisplatin depending upon DANIEL status. Should this be HPV+ disease, he would recommend definitive chemoradiation, potentially on DART 2 with the possibility of definitive de-escalation based upon ctDNA clearance. 03/09/2023 Other [place] Swallow Function IMPRESSION: 1. Negative video swallowing study. Summary: Mr. Roland presents with an oropharyngeal swallow that is considered within normal limits. 03/09/2023 Other Medical Oncology consultation with Fracisco Barron P.A.-C. who recommended primary chemoradiation therapy with weekly cisplatin. He could enroll in DART 2.0; however, he prefers to get treatment in [place]. Referral to colleagues in [place]. 03/10/2023 Other Dentistry appointment at [facility] where the patient's oral health was deemed adequate for chemoradiation. A dental lab order was initiated for [facility] in-house lab for fabrication of fluoride carriers. A folder was provided containing patient education materials and fluoride prescription. 03/23/2023 - Radiation Therapy Radiation Therapy Treatment Details (Noted on 03/12/2023) Site: Left Head and neck Technique: No technique specified Goal: Curative Planned Treatment Start Date: 03/23/2023 INTERVAL HISTORY The patient was seen and examined today with Dr. Hernandez. The patient reports feeling well overall. He appreciates good energy but has noticed mild fatigue over the last couple of months. He is just getting over a cold that developed about 2 weeks ago. He was experiencing fatigue, hot/cold variation, and mild cough/sneeze. This improved as of about 1 weekago. He denies any painful or difficulty swallowing. He does feel a lump when he swallows and a sensation of a very mildly irritated throat but it doesn't bother him overall. He reports a sensationof pin pricks on the left side of this tongue. He reports his weight is stable overall. He deniesany nausea or vomiting. He does not feel the neck lumps are enlarging. He denies any other fevers, except associated with the cold. He denies any cough or hemoptysis. He denies any changes to his hearing but does experience very occasional left ear discomfort that resolves on its own. The patient denies a history of prior radiation therapy, connective tissue disorders, or inflammatory bowel disease. The patient denies any implanted devices. His ECOG performance status is 0. REVIEW OF SYSTEMS Review of systems was negative except as documented above. PATIENT REPORTED SYMPTOM SCREEN FATIGUE (Scale: 0 = no fatigue; 10 = worst fatigue you can imagine): 2 PAIN (Scale: 0 = no pain; 10 = worst pain you can imagine): 0 OVERALL QUALITY OF LIFE (Scale: 0 = as bad as can be; 10 = as good as can be): 6 PAST MEDICAL HISTORY Past Medical History: Diagnosis Date Dyslipidemia Hypothyroidism Malignant Neoplasm Of Oropharynx (HCC) Obstructive Sleep Apnea Adult Polyp Colon Rosacea Thrombosis Deep Vein Acute Lower Extremity Left (HCC) PAST SURGICAL HISTORY Past Surgical History: Procedure Laterality Date APPENDECTOMY CHOLECYSTECTOMY EXCISION LESION EYELID Right 11/27/2014 >Excisional biopsy of lesion. HEMORRHOID SURGERY FAMILY HISTORY Family History Problem Relation Age of Onset Breast cancer Mother Prostate cancer Father SOCIAL HISTORY Social History Socioeconomic History Marital status: Tobacco Use Smoking status: Former Packs/day: 3.00 Years: 14.00 Additional pack years: 0.00 Total pack years: 42.00 Types: Cigarettes Quit date: 09/01/2010 Years since quittin.5 Smokeless tobacco: Never Vaping Use Vaping Use: never used Substance and Sexual Activity Alcohol use: Yes Comment: Rare Social Determinants of Health Financial Resource Strain: Low Risk (03/01/2023) Overall Financial Resource Strain (CARDIA) Difficulty of Paying Living Expenses: Not hard at all Food Insecurity: No Food Insecurity (03/01/2023) Hunger Vital Sign Worried About Running Out of Food in the Last Year: Never true Ran Out of Food in the Last Year: Never true Transportation Needs: No Transportation Needs (03/01/2023) PRAPARE - Transportation Lack of Transportation (Medical): No Lack of Transportation (Non-Medical): No Physical Activity: Insufficiently Active (03/01/2023) Exercise Vital Sign Days of Exercise per Week: 3 days Minutes of Exercise per Session: 30 min Housing Stability: Low Risk (03/01/2023) Housing Stability Housing: Living Situation: I have a steady place to live OBJECTIVE BP 134/69 (BP Location: Left arm, Patient Position: Sitting, Cuff Size: Regular) Pulse 60 Temp 36.4 ??C (Temporal) Wt 122 kg PHYSICAL EXAM General: Patient is alert and oriented in no apparent distress. ENT: Pupils equal, round, and reactive to light. TMs visible with cone of light present bilaterally. Sclera anicteric. Oral cavity inspection reveals moist mucous membranes and no visible lesions. Neck: Supple. Lymph: Left neck fullness present. No other palpable cervical, supraclavicular, infraclavicular, oraxillary adenopathy. Lungs: Clear to auscultation bilaterally. Heart: Regular rate and rhythm. Normal S1 and S2. ASSESSMENT / PLAN #1 Stage I (cT2, cN1, cM0, p16+) squamous cell carcinoma of the left tonsil It was a pleasure to meet with Tad and his , Eva, today. I had a detailed discussion with them regarding the diagnosis of squamous cell carcinoma of the left tonsil. We reviewed his oncologichistory as detailed above. I discussed the risks, benefits, and alternatives of radiotherapy in this setting. We discussed the recommendation for radiation treatment to his left tonsil/tongue base and bilateral neck lymph nodes in 35 fractions with concurrent chemotherapy provided under the care ofDr. Wu at [facility]. I discussed the logistics, as well as, the acute and chronic side effects of treatment in detail. The acute side effects may include, but are not limited to, sore throat/mouth pain, dry mouth/loss oftaste/thickened mucous secretions, pain with swallowing causing difficulty eating, weight loss which may require placement of a PEG tube, dehydration which may require IV fluids, hair loss in the area treated, redness of the skin that could blister and peel, and fatigue. Late side effects could include, but are not limited to, prolonged dryness of mouth, taste changes and/or thickened mucous secretions, darkening of skin, arthritis in neck/decreased range of motion in the neck, lymphedema, and thyroid dysfunction. Rare long-term side effects could include, but are not limited to, narrowing ofthe esophagus requiring intervention open it up, difficulty swallowing requiring lengthy or permanent use of a feeding tube, hearing loss, nerve damage in the neck, damage to the spinal cord, narrowing of the carotid arteries increasing the risk for stroke, osteonecrosis of the jaw, and the risk ofa secondary cancer. The patient was provided with a written summary of recommendations. his questions were answered to their verbalized satisfaction. After discussion, the patient verbally stated that he would like to proceed with treatment. He willundergo CT simulation today. We anticipate starting radiation therapy on March 23 if chemotherapy is able to start the same week. This may get delayed to March 30. Patient seen in collaboration with Dr. Hernandez, please review her attestation for additional information. The patient was provided with our contact information. He was asked to contact us with questions or concerns. He verbally expressed his understanding of the plan. EDUCATION Ready to learn, no apparent learning barriers were identified; learning preferences include listening. Explained diagnosis and treatment plan; patient expressed understanding of the content. CONSENT Discussed the risks, benefits, alternatives, and the necessity of other members of the healthcare team participating in the procedure. All questions answered and consent given. PRIMARY PROVIDER Toi Yap MD I personally spent 60 minutes in care of the patient today. Time includes both non face to face andface to face patient care. Signed by: Ashlee Go APRN, C.N.P., D.N.P. 03/13/2023 1:54 PM TAXATION INSPECTOR [facility] Radiation Therapy Center [address] [place] [address] TION INSPECTOR Associated attestation - Lauren Hernandez M.D. - 03/18/2023 3:15 PM TAXATION INSPECTOR RADIATION ONCOLOGY CONSULT I saw and evaluated the patient and participated in the zhang portions of the service. I reviewed thedocumentation of Ms. Ashlee GoPATRICE and agree with the findings and plan. Please see Ms. Go's detailed note for the patient's initial presentation and work-up. Briefly, Mr. Roland is a very pleasant 68 year old remote former smoker with a newly diagnosed left tonsil squamous cell carcinoma who has elected to pursue definitive radiation therapy here in [place] aftermeeting our colleagues in [place]. I have reviewed his imaging, operative, and pathology reports. On exam, he appears well. HEENT - Oral cavity/oropharynx - no obvious visible lesions on my exam. Dr. Soto noted a left tonsillar/glossotonsillar sulcus mass with minimal extension to the left lateral tongue base and an uninvolved vallecula. Neck - he has fullness in the neck with left level II/III. No other adenopathy. We discussed the findings above and below in this note. We discussed his treatment alternatives. Wediscussed the rationale, risks, side effects and goals of radiation therapy. We discussed the acuteas well as senior living risks, including, but not limited to fatigue, esophagitis, mucositis, skin erythema, xerostomia, lymphedema, fibrosis, trismus, and small risks to the nerves, spinal cord and mandible. They understood and their questions were answered. He wished to proceed with treatment. We tentatively plan on delivering 7000 cGy in 35 fractions starting March 23, 2023 if [place] can start chemotherapy that same week. We have been communicating with Dr. Wu and will know more on . He has already seen our dental colleagues. We will make referrals to Social work and Reservationist. We did discuss that if he should be hospitalized or need a PEG tube during treatment that we might haveto transfer his care to [place] for a short period of time. Pt signed consent form for our MLAPs study which is a dosimetry planning study. My thanks to Ms. Barron, Drs. Byrd, Brittany, Jazmin and Marely for the opportunity to participate in this patient's care. EDUCATION Ready to learn, no apparent learning barriers were identified; learning preferences include listening. Explained diagnosis and treatment plan; patient expressed understanding of the content. CONSENT Discussed the risks, benefits, alternatives, and the necessity of other members of the healthcare team participating in the procedure. All questions answered and consent given. DIAGNOSIS #1 Stage I (cT2, cN1, cM0, p16+) squamous cell carcinoma of the left tonsil Signed by: Lauren Hernandez M.D. 03/13/2023 4:01 PM TAXATION INSPECTOR documented in this encounter Miscellaneous Notes * Addendum Note - Lauren Hernandez M.D. - 03/13/2023 1:00 PM CSTEncounter addended by: Lauren Hernandez M.D. on: 03/18/2023 3:15 PM Actions taken: Edit attestation on clinical note TION INSPECTOR documented in this encounter Plan of Treatment Upcoming Encounters Date Type Department Care Team (Late st Contact Info) Description 05/07/2023 8:00 AM TAXATION INSPECTOR Appointment Department of Radiation Oncology in [address] [phone] Lauren Hernandez M.D. [address] [place] [phone] 05/07/2023 10:00 AM TAXATION INSPECTOR Virtual Visit Division of Endocrinology in [place], [place] [address] [place] [phone] Kendra Tinsley APRN, C.N.P. [address] [place] [phone] 05/08/2023 8:00 AM TAXATION INSPECTOR Appointment Department of Radiation Oncology in [address] [phone] Lauren Hernandez M.D. [address] [place] [phone] 05/11/2023 8:15 AM TAXATION INSPECTOR Appointment Department of Radiation Oncology in [address] [phone] Lauren Hernandez M.D. 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
--- OUTSIDE RECORDS SUMMARY | 2023-05-06 10:48 | XMS_ITS | Encounter Summary ---
Author Name Unknown Organization [facility] Address [address] [place] [address] Care Team Providers Care Credit And Collections Analyst Name Role Phone Unavailable Primary Care Provider Unavailabl e Reason for Referral * Outpatient (Routine) - Authorized Specialty Diagnoses / Procedures Referred By Contac t Referred To Contact Nutrition Diagnoses Malignant Neoplasm Of Oropharynx (HCC) Ashlee Go APRN, C.N.P., D.N.P. [address] [place] [phone] [facility] Region Referral ID Status Reason Start Date Expiration Date V isits Requested Visits Authorized [id number] Authorized 03/12/2023 03/11/2024 5 5 GER CULTURE * Outpatient (Routine) - Authorized Specialty Diagnoses / Procedures Referred By Contac t Referred To Contact Diagnoses Malignant Neoplasm Of Oropharynx (HCC) Ashlee Go APRN, C.N.P., D.N.P. [address] [place] [phone] [facility] Region Referral ID Status Reason Start Date Expiration Date V isits Requested Visits Authorized [id number] Authorized 03/12/2023 03/11/2024 1 1 GER CULTURE Encounter Details Date Type Department Care Team (Late st Contact Info) Description 03/12/2023 Orders Only Department of Radiation Oncology in [place], [place] [address] [place] [phone] Ashlee Go APRN, C.N.P., D.N.P. [address] [place] [phone] Malignant Neoplasm Of Oropharynx (HCC) (Primary Dx) Social History Tobacco Use Types Packs/Day Years [...] your living situation today? I have a franny place to live 03/01/2023 Sex and Gender Information Value Date Recorded Sex Assigned at Male 03/01/2023 1:25 PM MANAGER CULTURE Gender Identity Male 03/01/2023 1:25 PM MANAGER CULTURE Sexual Orientation Not on file documented as of this encounter Miscellaneous Notes * Addendum Note - Ashlee Go APRN, C.N.P., D.N.P. - 03/12/2023 10:28 AM CSTAddended by: ASHLEE GO on: 03/12/2023 10:33 AM Modules accepted: Orders GER CULTURE documented in this encounter Plan of Treatment Upcoming Encounters Date Type Department Care Team (Late st Contact Info) Description 05/07/2023 8:00 AM MANAGER CULTURE Appointment Department of Radiation Oncology in [place], [place] [address] [place] [phone] Lauren Hernandez M.D. [address] [place] [phone] 05/07/2023 10:00 AM MANAGER CULTURE Virtual Visit Division of Endocrinology in [place], [place] [address] [place] [phone] Kendra Tinsley APRN, C.N.PFco [address] [place] [phone] 05/08/2023 8:00 AM MANAGER CULTURE Appointment Department of Radiation Oncology in [place], [place] [address] [place] [phone] Lauren Hernandez M.D. [address] [place] [phone] 05/11/2023 8:15 AM MANAGER CULTURE Appointment Department of Radiation Oncology in [place], [place] [address] [place] [phone] Lauren Hernandez M.D. [address] [place] [phone] Scheduled Referrals Name Type Priority Associated Diagnoses Order Schedule Social work video facility consult (clinic) Outpatient Referral Routine Malignant Neoplasm Of Oropharynx (HCC) Expected: 03/12/2023 (Approximate), Expires: 06/12/2024 Nutrition - Medical nutrition therapy consult (clinic) Outpatient Referral Routine Malignant Neoplasm Of Oropharynx (HCC) 5 Occurrences starting 03/12/2023 until 03/12/2024 documented as of this encounter Visit Diagnoses Diagnosis Malignant Neoplasm Of Oropharynx (HCC)- Primary documented in this encounter
--- OUTSIDE RECORDS SUMMARY | 2023-05-06 10:48 | XMS_ITS | Encounter Summary ---
Author Name Unknown Organization [facility] Address [address] [place] [id number] Care Team Providers Care Laundry Pricing Clerk Name Role Phone Unavailable Primary Care Provider Unavailabl e Reason for Visit * Speech Pathology (Routine) - Closed Specialty Diagnoses / Procedures Referred By Contac t Referred To Contact Diagnoses Other Diseases Of Pharynx Localized Enlarged Lymph Nodes Procedures TANK CAR REPAIRER Dysphagia evaluate and treat David Soto M.D. [address] [place] [phone] [facility] Referral ID Status Reason Start Date Expiration Date Visits Re quested Visits Authorized [id number] Closed 03/05/2023 03/04/2024 1 1 Encounter Details Date Type Department Care Team (Latest Contact Info) Description 03/09/2023 10:30 AM GARNISHMENT SPECIALIST Comprehensive Visit Department of Neurology in [place], [place] [address] [place] [phone] David Soto M.D. [address] [place] [phone] Shabnam Ascencio M.S., CCC-TANK CAR REPAIRER [address] [place] [phone] Dysphagia Oropharyngeal Phase (Primary Dx); Malignant Neoplasm Of Oropharynx (HCC); Secondary Malignant Neoplasm Lymph Node (HCC) Social History Tobacco Use Types Packs/Day Years Used Date Smoking Tobacco: Former Cigarettes Q uit: 09/01/2010 Smokeless Tobacco: Never Overall Financial Resource Strain (CARDIA) [place] r [...] Sex Assigned at Male 03/01/2023 1:25 PM GARNISHMENT SPECIALIST Gender Identity Male 03/01/2023 1:25 PM GARNISHMENT SPECIALIST Sexual Orientation Not on file documented as of this encounter Consult Notes * Shabnam Ascencio MFcoSFco, CCC-TANK CAR REPAIRER - 03/09/2023 10:30 AM CST Speech Pathology Dysphagia Videofluoroscopic Swallow Study (VFSS) Outpatient Session Type: Evaluation Length of session: 90 minutes SUBJECTIVE Referred By: David Soto M.D. Reason for Consult: Dysphagia History: Mr. Roland is a very pleasant 68-year-old gentleman who was referred to speech pathology for a pre-treatment swallowing evaluation. He was recently found to have a left oropharyngeal mass with ipsilateral lymph node involvement. On clinical exam with ENT, the mass was felt to involve the left tonsiland glossotonsillar sulcus with minimal extension into the left lateral base of tongue. Final treatment recommendations are dependent on pathology and will be discussed later today in [facility]. Please refer to the EMR for complete medical history. Mr. Roland is currently consuming a regular diet and thin liquids and swallows pills whole with sipsof liquid without difficulty. He does not feel as though food or liquid goes down the wrong pipe orgets stuck in his throat on a regular basis. Since November, he has had a mild sore throat pain whichdoes not interfere with eating. He denies nasal regurgitation. He has not lost any weight unintentionally due to swallowing difficulty. He is currently recovering from some type of upper respiratory infection but does not otherwise have a history of pneumonias or respiratory infections. He denies ahistory of reflux. He has not noticed any new changes to his voice or speech. Referral to speech pathology included orders for a clinical swallowing evaluation and video fluoroscopic swallow study, allowing for comprehensive assessment of the oral and pharyngeal stages of the swallow. Eating Assessment Tool (EAT-10) 1. My swallowing problem has caused me to lose weight.: Never 2. My swallowing problem interferes with my ability to go out for meals.: Never 3. Swallowing liquids takes extra effort.: Never 4. Swallowing solids takes extra effort.: Never 5. Swallowing pills takes extra effort.: Never 6. Swallowing is painful.: Never 7. The pleasure of eating is affected by my swallowing.: Never 8. When I swallow, food sticks in my throat.: Never 9. I cough when I eat.: Never 10. Swallowing is stressful.: Never EAT-10 Total Score: 0 OBJECTIVE Oral Motor Dentition: Adequate Labial Structure and Function Labial Structure and Function: Within Normal Limits (WNL) Lingual Structure and Function Lingual Structure and Function: Within Normal Limits (WNL) Mandible Strength and Function Mandible Strength and Function: Within Normal Limits (WNL) Mandible Comments: BRITTANEY=49mm Motor Speech Voice: Within Normal Limits (WNL) Resonance (CUTTER BANANA ROOM Function): Within Normal Limits (WNL) Articulation: Within Normal Limits (WNL) Rate and Prosody: Within Normal Limits (WNL) Intelligibility: Intelligible Flowsheet Row Most Recent Value Description of Procedure Previous MBS/VFSS No Planes Tested Lateral, AP Type Assessment MBS IMP Statement of Consent Yes, Discussed goals, risks, alternatives, and the necessity of other members of the procedureal team participating in the procedure with the patient., The patient understands and wishes to proceed Consistencies Assessed (MBS) Consistencies Assessed Yes Level 0 Thin Presentation Cup, Self Fed Lip Closure 0: No labial escape Tongue Control 0: Cohesive bolus between tongue to palatal seal Bolus Transport/Lingual Motion 0: Brisk tongue motion Oral Residue 1: Trace residue lining oral structures Oral Residue Location Tongue Onset of Pharyngeal Swallow 3: Bolus head in pyriforms Soft Palate Elevation 0: No bolus between soft palate (SP)/pharyngeal wall (PW) Laryngeal Elevation 0: Complete superior movement of thyroid cartilage with complete approximation of arytenoids to epiglottic petiole Anterior Hyoid Excursion 0: Complete anterior movement Epiglottic Movement 0: Complete inversion Laryngeal Vestibular Closure 0: Complete, no air/contrast in laryngeal vestibule Pharyngeal Stripping Wave 0: Present - complete Pharyngoesophageal Segment Opening 0: Complete distension and complete duration, no obstruction of flow Tongue Base Retraction 1: Trace column of contrast or air between TB and PW Pharyngeal Residue 1: Trace residue within or on pharyngeal structures Pharyngeal Residue Location Valleculae, Pyriform sinuses Penetration/Aspiration Scale 6: Material enters the airway, passes below the vocal folds, and is ejected into the larynx or out of the airway. Penetration Yes, during the swallow Aspiration Yes, during the swallow Level 2 Mildly Thick Presentation Cup, Self Fed Pharyngeal Contraction AP View only 0: Complete Esophageal Clearance 0: Complete clearance, esophageal coating Level 4 Puree Presentation Self Fed, Spoon Lip Closure 0: No labial escape Bolus Transport/Lingual Motion 0: Brisk tongue motion Oral Residue 1: Trace residue lining oral structures Oral Residue Location Tongue Onset of Pharyngeal Swallow 0: Bolus head at posterior angle of ramus (first hyoid excursion) Soft Palate Elevation 0: No bolus between soft palate (SP)/pharyngeal wall (PW) Laryngeal Elevation 0: Complete superior movement of thyroid cartilage with complete approximation of arytenoids to epiglottic petiole Anterior Hyoid Excursion 0: Complete anterior movement Epiglottic Movement 0: Complete inversion Laryngeal Vestibular Closure 0: Complete, no air/contrast in laryngeal vestibule Pharyngeal Stripping Wave 0: Present - complete Pharyngoesophageal Segment Opening 0: Complete distension and complete duration, no obstruction of flow Tongue Base Retraction 0: No contrast between TB and posterior pharyngeal wall (PW) Pharyngeal Residue 0: Complete pharyngeal clearance Penetration/Aspiration Scale 1: Material does not enter airway Penetration No Aspiration No Level 7 Regular Presentation Self Fed Lip Closure 0: No labial escape Bolus Prep/Mastication 0: Timely and efficient chewing and mashing Bolus Transport/Lingual Motion 0: Brisk tongue motion Oral Residue 1: Trace residue lining oral structures Oral Residue Location Tongue Onset of Pharyngeal Swallow 0: Bolus head at posterior angle of ramus (first hyoid excursion) Soft Palate Elevation 0: No bolus between soft palate (SP)/pharyngeal wall (PW) Laryngeal Elevation 0: Complete superior movement of thyroid cartilage with complete approximation of arytenoids to epiglottic petiole Anterior Hyoid Excursion 0: Complete anterior movement Epiglottic Movement 0: Complete inversion Laryngeal Vestibular Closure 0: Complete, no air/contrast in laryngeal vestibule Pharyngeal Stripping Wave 0: Present - complete Pharyngoesophageal Segment Opening 0: Complete distension and complete duration, no obstruction of flow Tongue Base Retraction 1: Trace column of contrast or air between TB and PW Pharyngeal Residue 1: Trace residue within or on pharyngeal structures Pharyngeal Residue Location Valleculae Penetration/Aspiration Scale 1: Material does not enter airway Penetration No Aspiration No MBSImP Scores Oral Impairment Score 3 Pharyngeal Impairment Score 0 Esophageal Impairment Score 0 Assessment Clinical swallowing evaluation and videofluoroscopic swallow study (VFSS) were completed during today's visit. Please refer to Objective section for details of the CSE which was normal. During the videofluoroscopic swallow study images were recorded as the patient swallowed thin barium via cup, mildly thick barium (A-P view only), barium pudding, and 1/2 of a cookie tagged with barium pudding. Oral stage was unremarkable for the consistencies administered. Mastication of the cookie was timely and thorough. There was no anterior loss of liquids. The pharyngeal swallow was triggered at the level of the pyriforms with thin liquid. Pharyngeal stage was notable for reduced tongue base retraction which contributed to minimal vallecular residue with the dry cookie consistency. This was cleared with a sip of liquid. There was a single episode of trace laryngeal penetration and aspiration with the first swallow of thin liquid; contrast briefly passed below the vocal folds and was completelyexpelled with a reflexive throat clear. No additional episodes of laryngeal penetration or aspiration were observed during the exam. Velopharyngeal closure and cricopharyngeal relaxation appeared adequate. In A-P view, bolus flow was grossly symmetrical through the pharynx and upper esophagus. Summary: Mr. Roland presents with an oropharyngeal swallow that is considered within normal limits. There yadiel isolated episode of very trace laryngeal penetration and aspiration with the first swallow of thin liquid which was completely expelled with a reflexive throat clear. No additional episodes of laryngeal penetration or aspiration were observed. In this context, the isolated episode of laryngeal penetration/aspiration is not felt to be installation service representative of the patient's swallow function. There was no significant pharyngeal residue after any swallow. The results of today's swallow study were reviewed in detail with the patient and his who verbalized understanding of the information provided and asked several thoughtful questions which were answered to the best of my ability within the TANK CAR REPAIRER scope of practice. I provided brief education regarding the role of swallowing exercises during and after radiation and we discussed the goal of maintaining swallow function for as long as possible with adherence to a consistent exercise program. We also discussed the role of exercise postoperatively in the event that he undergoes surgery. Given that his treatment plan has not yet been determined, I did not provideinstruction/training in exercises today but this should be completed in a separate session if indicated after a treatment plan is determined. It was a pleasure to work with Mr. Roland today. I provided him with my card and encouraged him to contact me with any questions or concerns that may arise after today's visit. Select images from today's evaluation are available for review on QREADS Diagnosis: Normal oropharyngeal swallow Functional Oral Intake Scale: Level 7 - Total oral diet with no restrictions Plan Recommendations: 1. Continue a regular diet and thin liquids 2. Pills per patient preference 3. Instruction and training in swallowing exercises, if indicated after treatment plan is determined ISHMENT SPECIALIST documented in this encounter Plan of Treatment Upcoming Encounters Date Type Department Care Team (Late st Contact Info) Description 05/07/2023 8:00 AM GARNISHMENT SPECIALIST Appointment Department of Radiation Oncology in [place], [place] [address] [place] [phone] Lauren Hernandez M.D. [address] [place] [phone] 05/07/2023 10:00 AM GARNISHMENT SPECIALIST Virtual Visit Division of Endocrinology in [place], [place] [address] [place] [phone] Kendra Tinsley APRN, C.N.P. [address] [place] [phone] 05/08/2023 8:00 AM GARNISHMENT SPECIALIST Appointment Department of Radiation Oncology in [address] [phone] Lauren Hernandez M.D. [address] [place] [phone] 05/11/2023 8:15 AM GARNISHMENT SPECIALIST Appointment Department of Radiation Oncology in [place], [place] [address] [place] [phone] Lauren Hernandez M.D. 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
--- OUTSIDE RECORDS SUMMARY | 2023-05-06 10:48 | XMS_ITS | Encounter Summary ---
Author Name Unknown Organization [facility] Address [address] [place] [address] Care Team Providers Care Hospital Secretary Name Role Phone Unavailable Primary Care Provider Unavailabl e Reason for Visit * Outpatient (Routine) - Closed Specialty Diagnoses / Procedures Referred By Conttin t Referred To Contact Dentistry / Dental Specialties Diagnoses Other Diseases Of Pharynx Localized Enlarged Lymph Nodes David Soto M.D. [address] [place] [phone] [facility] Referral ID Status Reason Start Date Expiration Date Visits Re quested Visits Authorized [id number] Closed 03/05/2023 03/04/2024 1 1 Encounter Details Date Type Department Care Team (Latest Contact Info) Description 03/10/2023 4:00 PM SERVICE DESK SPECIALIST Comprehensive Visit Department of Dental Specialties in [place], [place] [address] [place] [phone] Joe Moseley B.D.S. [address] [place] [phone] Malignant Neoplasm Of Oropharynx (HCC); Secondary Malignant [...] your living situation today? I have a [facility] place to live 03/01/2023 Sex and Gender Information Value Date Recorded Sex Assigned at Male 03/01/2023 1:25 PM SERVICE DESK SPECIALIST Gender Identity Male 03/01/2023 1:25 PM SERVICE DESK SPECIALIST Sexual Orientation Not on file documented as of this encounter Consult Notes * Joe Moseley B.D.S. - 03/10/2023 4:00 PM CST SUBJECTIVE REASON FOR CONSULT Tad Roland is a 68 y.o. male who presents for a Prosthodontic consultation regarding oral evaluation in the setting of head and neck malignancy. Patient was referred by David Soto M.D.in the department of Otolaryngology. Patient reports they have a primary dentist. Patient sees his [facility] dentist every 6 months. Patient reports the following oral concerns: None. HISTORY OF PRESENT ILLNESS The following portions of the patient's history were reviewed and updated as appropriate: allergiesand current medications. Patient's oncologic history is as follows: Oncology History Malignant Neoplasm Of Oropharynx (HCC) 02/12/[address] Neck IMPRESSION: 1. 2.9 cm enhancing mass at the left glossotonsillar sulcus abutting and questionably involving theleft hyoglossus musculature. 2. Multiple prominent and necrotic left upper cervical lymph nodes highly suspicious for regional [place] metastases. 03/02/2023 Critical Imaging PET/CT IMPRESSION: 1. 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 2. Possible FDG avid colon polyp. Recommend colonoscopy correlation, if clinically indicated. 03/05/2023 Biopsy/Pathology A. Lymph node, Left neck, fine needle aspiration (smears/core biopsy): Positive for malignancy. 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 Immunostains performed on block A1 show the neoplastic cells are positive for p40 and p16 (strong, diffuse), while negative for NUT. OBJECTIVE PHYSICAL EXAM Clinical oral examination was accomplished. Dental Findings: #19 and #30 are implant crowns done a few years ago, # 4 RCT done a while ago. Missing teeth: 1, 16, 19, 30, and 32 Caries/Defective restorations: minor chipping on 7-10 Periodontal Findings: Generalized probing depths: 1-3 Bleeding upon probing: No Mobility: None noted Oral hygiene: Good Plaque: Subgingival - Light; Supragingival - Light Calculus: Subgingival - Light; Supragingival - Light Temporomandibular Joints: Full range of motion. Negative for popping, clicking, deflection, or deviation. Maximum interocclusal opening measured between tooth #9 and tooth #24: 58 mm DIAGNOSTICS Panoramic radiograph taken and reviewed. Image(s) revealed There are no central bony or odontogeniclesions in the body or ascending rami of the mandible. Mandibular condyles appear well rounded and well corticated with no signs of pathology. Dental roots appear normal with no signs of resorption or periapical radiolucencies. No dental caries is evident; however, this radiograph is non-diagnosticfor all but the largest carious lesions. Panoramic radiograph shows implants in sites # 19 #30 ASSESSMENT / PLAN #1 Malignant Neoplasm Of Oropharynx (HCC) #2 Secondary Malignant Neoplasm Lymph Node (HCC) Patient's oral health is adequate for chemoradiation. Advised patient of making his medical team aware of any oral symptoms in the future. Reviewed the oral sequelae and effects of chemoradiation including reddening of the skin, mucositis, taste alteration, trismus, risk for osteoradionecrosis, and xerostomia with increased cavity risk. Reviewed the st rategy for enhancing caries resistance with fluoride use. Maxillary and mandibular impressions weremade using Kromopan alginate. A dental lab order was initiated for [facility] in-house lab for fabrication of fluoride carriers. A folder was provided containing patient education materials and fluoride prescription. Questions were welcomed and answered to the best of my ability and patient reports no further questions at this time. Next Visit: mailing fluoride trays to patient (having radiation in [place]) This was a 60 minute appointment with greater than 50% of the time spent in face to face counselingand coordination of care. Valentin Taylor initiated documentation on behalf of Joe Sanhcez B.D.S. who completed documentation and performed the service(s). ICE DESK SPECIALIST Associated attestation - Dora Vivas D.D.S. - 03/23/2023 7:18 AM SERVICE DESK SPECIALIST I reviewed the case with the resident/fellow but did not see the patient. I agree with the assessment and plan as documented in the resident/fellow's note. documented in this encounter Plan of Treatment Upcoming Encounters Date Type Department Care Team (Late st Contact Info) Description 05/07/2023 8:00 AM SERVICE DESK SPECIALIST Appointment Department of Radiation Oncology in [place], [place] [address] [place] [phone] Lauren Hernandez M.D. [address] [place] [phone] 05/07/2023 10:00 AM SERVICE DESK SPECIALIST Virtual Visit Division of Endocrinology in [place], [place] [address] [place] [phone] Kendra Tinsley APRN, C.N.PFco [address] [place] [phone] 05/08/2023 8:00 AM SERVICE DESK SPECIALIST Appointment Department of Radiation Oncology in [place], [place] [address] [place] [phone] Lauren Hernandez M.D. 200 [place] [phone] 05/11/2023 8:15 AM SERVICE DESK SPECIALIST Appointment Department of Radiation Oncology in [place], [place] [address] [place] [phone] Lauren Hernandez M.D. 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 Fluoride carriers by Radha Engel Joe Moseley B.D.S. DENTAL JUAN CARLOS FULLER * [facility] (03/10/2023 5:56 PM SERVICE DESK SPECIALIST) Narrative Joe Moseley B.D.S. - 03/10/2023 5:56 PM SERVICE DESK SPECIALIST Panoramic radiograph taken and reviewed. 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
--- OUTSIDE RECORDS SUMMARY | 2023-05-06 10:48 | XMS_ITS | Encounter Summary ---
Author Name Unknown Organization [facility] Address [address] [place] [address] Care Team Providers Care Bulb Planter Name Role Phone Unavailable Primary Care Provider Unavailabl e Reason for Referral * Outpatient (Routine) - Authorized Specialty Diagnoses / Procedures Referred By Diamond t Referred To Contact Radiation Oncology Lauren Hernandez M.D. 200 [place] [address] [facility] Region Referral ID Status Reason Start Date Expiration Date V isits Requested Visits Authorized [id number] Authorized 03/12/2023 03/11/2026 10 10 NHOUSE OR NURSERY TRANSPLANTER * Specialty Diagnoses / Procedures Referred By Contac t Referred To Contact Terri Crowe P.A.-C., M.S. 200 [place] [phone] [facility] Region Referral ID Status Reason Start Date Expiration Date Visits Re quested Visits Authorized NHOUSE OR NURSERY TRANSPLANTER * Radiation Therapy (Routine) - Authorized Specialty Diagnoses / Procedures Referred By Contac t Referred To Contact Diagnoses Malignant Neoplasm Of Oropharynx (HCC) Procedures Management Visit Lauren Hernandez M.D. 200 [place] [phone] [facility] Region Referral ID Status Reason Start Date Expiration Date V isits Requested Visits Authorized [id number] Authorized 03/12/2023 03/11/2024 10 10 NHOUSE OR NURSERY TRANSPLANTER * Radiation Therapy (Routine) - Authorized Specialty Diagnoses / Procedures Referred By Contac t Referred To Contact Diagnoses Malignant Neoplasm Of Oropharynx (HCC) Procedures Prior Auth Rad Tx [place] IMRT COMPLEX IMRT Lauren Hernandez M.D. 200 [place] [address] [facility] Radiation Oncology at [place] [address] [place] [address] Referral ID Status Reason Start Date Expiration Date V isits Requested Visits Authorized [id number] Authorized 03/23/2023 03/11/2024 35 35 NHOUSE OR NURSERY TRANSPLANTER * Radiation Therapy (Routine) - Closed Specialty Diagnoses / Procedures Referred By Contac t Referred To Contact Diagnoses Malignant Neoplasm Of Oropharynx (HCC) Procedures Initial Rad Onc Treatment Planning CT Simulation Lauren Hernandez M.D. [address] [place] [phone] [facility] Region Referral ID Status Reason Start Date Expiration Date Visits Re quested Visits Authorized [id number] Closed 03/12/2023 03/11/2024 1 1 NHOUSE OR NURSERY TRANSPLANTER Encounter Details Date Type Department Care Team (Late st Contact Info) Description 03/12/2023 Orders Only Department of Radiation Oncology in [place], [place] [address] [place] [phone] Terri Crowe P.A.-C., M.S. [address] [place] [address] Malignant Neoplasm Of Oropharynx (HCC) (Primary Dx) [...] living situation today? I have a [facility] place to live 03/01/2023 Sex and Gender Information Value Date Recorded Sex Assigned at Male 03/01/2023 1:25 PM GREENHOUSE OR NURSERY TRANSPLANTER Gender Identity Male 03/01/2023 1:25 PM GREENHOUSE OR NURSERY TRANSPLANTER Sexual Orientation Not on file documented as of this encounter Plan of Treatment Upcoming Encounters Date Type Department Care Team (Late st Contact Info) Description 05/07/2023 8:00 AM GREENHOUSE OR NURSERY TRANSPLANTER Appointment Department of Radiation Oncology in [place], [place] [address] [place] [phone] Lauren Hernandez M.D. [address] [place] [phone] 05/07/2023 10:00 AM GREENHOUSE OR NURSERY TRANSPLANTER Virtual Visit Division of Endocrinology in [place], [place] [address] [place] [phone] Kendra Tinsley APRN, C.N.P. [address] [place] [phone] 05/08/2023 8:00 AM GREENHOUSE OR NURSERY TRANSPLANTER Appointment Department of Radiation Oncology in [address] [phone] Lauren Hernandez M.D. [address] [place] [phone] 05/11/2023 8:15 AM GREENHOUSE OR NURSERY TRANSPLANTER Appointment Department of Radiation Oncology in [address] [phone] Lauren Hernandez M.D. [address] [place] [phone] Scheduled Orders Name Type Priority Associated Diagnoses Order Schedule Prior Auth Rad Tx Radiation Oncology Routine Malignant Neoplasm Of Oropharynx (HCC) Ordered: 03/12/2023 Management Visit Radiation Oncology Routine Malignant Neoplasm Of Oropharynx (HCC) 10 Occurrences starting 03/12/2023 until 03/12/2024 Scheduled Referrals Name Type Priority Associated Diagnoses Order Schedule Radiation Oncology - Nurse education visit (clinic) Outpatient Referral Routine Malignant Neoplasm Of Oropharynx (HCC) Expected: 03/12/2023 (Approximate), Expires: 03/12/2024 Radiation Oncology nurse visit (clinic) Outpatient Referral Routine 10 Occurrenc es starting 03/12/2023 until 03/12/2024 documented as of this encounter Results * Initial Rad Onc Treatment Planning CT Simulation (03/13/2023 2:15 PM GREENHOUSE OR NURSERY TRANSPLANTER) Narrative RENE LUQUE - 03/13/2023 2:15 PM GREENHOUSE OR NURSERY TRANSPLANTER Gregoria Vega, RTT ? 03/13/2023 ??2:39 PM Initial Rad Onc Treatment Planning CT Simulation Performed by: Lauren Hernandez M.D. Authorized by: Lauren Hernandez M.D. ?? Lauren Hernandez M.D. RADIATION ONCOLOG Y ORDERABLES RENE LUQUE na documented in this encounter Visit Diagnoses Diagnosis Malignant Neoplasm Of Oropharynx (HCC)- Primary Malignant Neoplasm Of Oropharynx (HCC) documented in this encounter
--- OUTSIDE RECORDS SUMMARY | 2023-05-06 10:48 | XMS_ITS | Encounter Summary ---
Author Name Unknown Organization [facility] Address [address] [place] [address] Care Team Providers Care Pneumatic Tool Operator Name Role Phone Unavailable Primary Care Provider Unavailabl e Encounter Details Date Type Department Care Team (Late st Contact Info) Description 03/09/2023 Orders Only Department of Radiation Oncology in [place], [place] [address] [place] [phone] Brandon Yeboah [address] [place] [phone] Mass Tonsil (Primary Dx) Social History Tobacco Use Types [...] living situation today? I have a [facility] place to live 03/01/2023 Sex and Gender Information Value Date Recorded Sex Assigned at Male 03/01/2023 1:25 PM JEWELRY SALES REPRESENTATIVE Gender Identity Male 03/01/2023 1:25 PM JEWELRY SALES REPRESENTATIVE Sexual Orientation Not on file documented as of this encounter Plan of Treatment Upcoming Encounters Date Type Department Care Team (Late st Contact Info) Description 05/07/2023 8:00 AM JEWELRY SALES REPRESENTATIVE Appointment Department of Radiation Oncology in [place], [place] [address] [place] [phone] Lauren Hernandez M.D. [address] [place] [phone] 05/07/2023 10:00 AM JEWELRY SALES REPRESENTATIVE Virtual Visit Division of Endocrinology in [place], [place] 200 [place] [phone] Kendra Tinsley APRN, C.N.P. [address] [place] [phone] 05/08/2023 8:00 AM JEWELRY SALES REPRESENTATIVE Appointment Department of Radiation Oncology in [place], [place] [address] [place] [address] Lauren Hernandez M.D. [address] [place] [phone] 05/11/2023 8:15 AM JEWELRY SALES REPRESENTATIVE Appointment Department of Radiation Oncology in [place], [place] [address] [place] [phone] Lauren Hernandez M.D. [address] [place] [address] documented as of this encounter Visit Diagnoses Diagnosis Mass Tonsil- Primary documented in this encounter
--- OUTSIDE RECORDS SUMMARY | 2023-05-06 10:48 | XMS_ITS | Encounter Summary ---
Author Name Unknown Organization [facility] Address [address] [place] [address] Care Team Providers Care General Distillery Worker Name Role Phone Unavailable Primary Care Provider Unavailabl e Reason for Visit * Radiation Therapy (Routine) - Closed Specialty Diagnoses / Procedures Referred By Contac t Referred To Contact Diagnoses Malignant Neoplasm Of Oropharynx (HCC) Procedures Initial Rad Onc Treatment Planning CT Simulation Lauren Hernandez M.D. [address] [place] [phone] [facility] Region Referral ID Status Reason Start Date Expiration Date Visits Re quested Visits Authorized [id number] Closed 03/12/2023 03/11/2024 1 1 Encounter Details Date Type Department Care Team (Latest Contact Info) Description 03/13/2023 2:00 PM SOFTWARE TECHNICAL LEAD - 03/13/2023 2:06 PM [facility] Hospital Encounter Department of Radiation Oncology in [place], [place] [address] [place] [phone] Lauren Hernandez M.D. [address] [place] [phone] Anita Kyle R.N. [address] [place] [phone] Malignant Neoplasm Of Tonsil (HCC) (Primary Dx) Social History Tobacco Use [...] your living situation today? I have a [facility] place to live 03/01/2023 Sex and Gender Information Value Date Recorded Sex Assigned at Male 03/01/2023 1:25 PM SOFTWARE TECHNICAL LEAD Gender Identity Male 03/01/2023 1:25 PM SOFTWARE TECHNICAL LEAD Sexual Orientation Not on file documented [...] st Contact Info) Description 05/07/2023 8:00 AM SOFTWARE TECHNICAL LEAD Appointment Department of Radiation Oncology in [place], [place] [address] [place] [phone] Lauren Hernandez M.D. [address] [place] [phone] 05/07/2023 10:00 AM SOFTWARE TECHNICAL LEAD Virtual Visit Division of Endocrinology in [place], [place] [address] [place] [phone] Kendra Tinsley APRN, C.N.P. [address] [place] [phone] 05/08/2023 8:00 AM SOFTWARE TECHNICAL LEAD Appointment Department of Radiation Oncology in [address] [phone] Lauren Hernandez M.D. [address] [place] [phone] 05/11/2023 8:15 AM SOFTWARE TECHNICAL LEAD Appointment Department of Radiation Oncology in [address] [phone] Lauren Hernandez M.D. [address] [place] [phone] documented as of this encounter Visit Diagnoses Diagnosis Malignant Neoplasm Of Tonsil (HCC)- Primary documented in this encounter Administered Medications Inactive Administered Medications - up to 3 most recent administrations Medication Order MAR Action Action Date Dose Rate Site iohexoL 300 mg iodine/mL solution 120 mL (OMNIPAQUE) 120 mL, intravenous, Once in imaging, contrast, IV onctrst, Starting on Thu03/13/23 at 1440, For 1 dose Given 03/13/2023 2:44 PM SOFTWARE TECHNICAL LEAD 120 mL NaCl 0.9 % bolus 35 mL 35 mL, intravenous, at 35 mL/hr, Administer over 1 Hours, Once, On Thu03/13/23 at 1500, For 1 dose New Bag 03/13/2023 2:45 PM SOFTWARE TECHNICAL LEAD 35 mL 35 mL/hr sodium chloride 0.9 % injection 10 mL 10 mL, intravenous, As needed, line care, Peripheral Intravenous Catheter and Rapid Infusion Catheter, Starting on Thu03/13/23 at 1415, Prior to blood sampling, post blood transfusion or post blood sampling. Given 03/13/2023 2:45 PM SOFTWARE TECHNICAL LEAD 10 mL Given 03/13/2023 2:44 PM SOFTWARE TECHNICAL LEAD 10 mL documented in this encounter
--- OUTSIDE RECORDS SUMMARY | 2023-05-06 10:48 | XMS_ITS | Encounter Summary ---
Author Name Unknown Organization [facility] Address [address] [place] [address] Care Team Providers Care Shower Screen Installer Name Role Phone Unavailable Primary Care Provider Unavailabl e Reason for Referral * Outpatient (Routine) - Closed Specialty Diagnoses / Procedures Referred By Diamond montemayor Referred To Contact Diagnoses Other Diseases Of Pharynx Localized Enlarged Lymph Nodes Procedures FL Swallow Function with Video and Speech or OT David Soto M.D. 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 [address] [place] [phone] [facility] Referral ID Status Reason Start Date Expiration Date V isits Requested Visits Authorized [id number] Canceled 03/05/2023 03/04/2024 1 1 Encounter Details Date Type Department Care Team (Latest Contact Info) Description 03/09/2023 10:34 AM BUILDINGS AND GROUNDS SUPERINTENDENT - 03/09/2023 11:59 PM BUILDINGS AND GROUNDS SUPERINTENDENT Hospital Encounter Department of Radiology, [facility], in [place], [place] [address] [place] [phone] David Soto M.D. [address] [place] [phone] Shabnam Ascencio M.S., CCC-POINTER MACHINE OPERATOR [address] [place] [phone] Malignant Neoplasm Of Oropharynx (HCC); Secondary Malignant [...] your living situation today? I have a [facility] place to live 03/01/2023 Sex and Gender Information Value Date Recorded Sex Assigned at Male 03/01/2023 1:25 PM BUILDINGS AND GROUNDS SUPERINTENDENT Gender Identity Male 03/01/2023 1:25 PM BUILDINGS AND GROUNDS SUPERINTENDENT Sexual Orientation Not on file documented as [...] Start Date: 09/28/20 Status: Ordered 0 09/28/2020 glucosamine portillo 2KCl-chondroit (Glucosamine-Chondro itin 3X Str) [...] st Contact Info) Description 05/07/2023 8:00 AM BUILDINGS AND GROUNDS SUPERINTENDENT Appointment Department of Radiation Oncology in [address] [phone] Lauren Hernandez M.D. [address] [place] [phone] 05/07/2023 10:00 AM BUILDINGS AND GROUNDS SUPERINTENDENT Virtual Visit Division of Endocrinology in [place], [place] [address] [place] [phone] Kendra Tinsley APRN, C.N.P. [address] [place] [phone] 05/08/2023 8:00 AM BUILDINGS AND GROUNDS SUPERINTENDENT Appointment Department of Radiation Oncology in [address] [phone] Lauren Hernandez M.D. [address] [place] [phone] 05/11/2023 8:15 AM BUILDINGS AND GROUNDS SUPERINTENDENT Appointment Department of Radiation Oncology in [address] [phone] Lauren Hernandez M.D. 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 Negative video swallowing study. Narrative 03/09/2023 10:53 AM BUILDINGS AND GROUNDS SUPERINTENDENT EXAM: FL SWALLOW FUNCTION WITH VIDEO AND [...] swallowing study. David Soto M.D. 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) documented in this encounter Administered Medications Inactive Administered Medications - up to 3 most recent administrations Medication Order MAR Action Action Date Dose Rate Site barium 40 % (w/v) suspension 20 mL 20 mL, oral, Once in imaging, contrast, Starting on 03/09/23 at 1049, For 1 dose Given 03/09/2023 10:49 AM BUILDINGS AND GROUNDS SUPERINTENDENT 20 mL barium 81 % (w/w) oral powder for suspension 20 g (VARIBAR THIN LIQUID) 20 g (50 mL), oral, Once in imaging, contrast, Starting on 03/09/23 at 1049, For 1 dose Given 03/09/2023 10:49 AM BUILDINGS AND GROUNDS SUPERINTENDENT 50 mL documented in this encounter
--- OUTSIDE RECORDS SUMMARY | 2023-05-06 10:48 | XMS_ITS | Encounter Summary ---
Author Name Unknown Organization [facility] Address [address] [place] [address] Care Team Providers Care T Rail Turner Name Role Phone Unavailable Primary Care Provider Unavailabl e Reason for Referral * Outpatient (Routine) - Closed Specialty Diagnoses / Procedures Referred By Diamond montemayor Referred To Contact Radiation Oncology Diagnoses Malignant Neoplasm Of Oropharynx (HCC) Fracisco Barron P.A.-C. [address] [place] [phone] [facility] Referral ID Status Reason Start Date Expiration Date Visits Re quested Visits Authorized [id number] Closed 03/10/2023 03/09/2024 1 1 Scheduling Instructions Peninsula RT DISPATCHER Encounter Details Date Type Department Care Team (Late st Contact Info) Description 03/10/2023 Orders Only Department of Oncology in [place], [place] [address] [place] [phone] Ana Quinonez, RJurgen Malignant Neoplasm Of Oropharynx (HCC) (Primary Dx) [...] your living situation today? I have a [facility] place to live 03/01/2023 Sex and Gender Information Value Date Recorded Sex Assigned at Male 03/01/2023 1:25 PM IMPORT DISPATCHER Gender Identity Male 03/01/2023 1:25 PM IMPORT DISPATCHER Sexual Orientation Not on file documented as of this encounter Plan of Treatment Upcoming Encounters Date Type Department Care Team (Late st Contact Info) Description 05/07/2023 8:00 AM IMPORT DISPATCHER Appointment Department of Radiation Oncology in [place], [place] [address] [place] [phone] Lauren Hernandez M.D. [address] [place] [phone] 05/07/2023 10:00 AM IMPORT DISPATCHER Virtual Visit Division of Endocrinology in [place], [place] [address] [place] [phone] Kendra Tinsley APRN, C.N.P. [address] [place] [phone] 05/08/2023 8:00 AM IMPORT DISPATCHER Appointment Department of Radiation Oncology in [place], [place] [address] [place] [phone] Lauren Hernandez M.D. [address] [place] [address] 05/11/2023 8:15 AM IMPORT DISPATCHER Appointment Department of Radiation Oncology in [place], [place] [address] [place] [phone] Lauren Hernandez M.D. [address] [place] [phone] Scheduled Referrals Name Type Priority Associated Diagnoses Orde r Schedule Radiation Oncology - Head / neck consult (clinic) Outpatient Referral Routine Malignant Neoplasm Of Oropharynx (HCC) Expected: 03/10/2023 (Approximate), Expires: 06/10/2024 documented as of this encounter Visit Diagnoses Diagnosis Malignant Neoplasm Of Oropharynx (HCC)- Primary documented in this encounter
--- OUTSIDE RECORDS SUMMARY | 2023-05-06 10:48 | XMS_ITS | Encounter Summary ---
Author Name Unknown Organization [facility] Address [address] [place] [address] Care Team Providers Care Eyeglass Cutter Name Role Phone Unavailable Primary Care Provider Unavailabl e Reason for Visit * Outpatient (Routine) - Closed Specialty Diagnoses / Procedures Referred By Diamond t Referred To Contact Otorhinolaryngology David Soto M.D. [address] [place] [phone] [facility] Referral ID Status Reason Start Date Expiration Date Visits Re quested Visits Authorized [id number] Closed 03/05/2023 03/04/2026 1 1 Encounter Details Date Type Department Care Team (Latest Contact Info) Description 03/09/2023 1:30 PM DESIGN AGENT Office Visit Department of Otorhinolaryngology in [place], [place] [address] [place] [phone] David Soto M.D. [address] [place] [phone] Malignant Neoplasm Of Tonsil (HCC) (Primary Dx); Secondary Malignant Neoplasm Lymph Node (HCC) Social [...] Sex Assigned at Male 03/01/2023 1:25 PM DESIGN AGENT Gender Identity Male 03/01/2023 1:25 PM DESIGN AGENT Sexual Orientation Not on file documented as of this encounter Progress Notes * David Soto M.D. - 03/09/2023 1:30 PM CST Clinic Note Date of visit: 03/09/2023 Patient name: Tad Roland : 1955 Subjective Chief Complaint: follow up oropharyngeal cancer HPI: Tad Roland is a 68 y.o. male with a left neck mass and oropharynx mass who was seen initially last week at which point a neck biopsy was performed, and biopsy results were pending. He presents today in follow up through multidisciplinary oropharynx clinic. In the interim, his biopsy results have returned as p16+ SCC, with HPV RODRÍGUEZ pending. Patient Active Problem List Diagnosis Malignant Neoplasm Of Tonsil (HCC) Oncology History Malignant Neoplasm Of Tonsil (HCC) [...] however, he prefers to get treatment in [place]. Referral to colleagues in [place]. 03/10/2023 Other Dentistry appointment at [facility] where the patient's oral health was deemed adequate for chemoradiation. A dental lab order was initiated for [facility] in-house lab for fabrication of fluoride carriers. A folder was provided containing patient education materials and fluoride prescription. 03/23/2023 - Radiation Therapy Radiation Therapy Treatment Details (Noted on 03/12/2023) Site: Left Head and neck Technique: No technique specified Goal: Curative Planned Treatment Start Date: 03/23/2023 ROS: REVIEW OF SYSTEMS Objective Physical exam: Deferred Data review: Labs reviewed: Recent Results (from the past 720 hour(s)) Cytology Fine Needle Aspiration (including core biopsies) Status: Abnormal Result Value (A) Disclaimer (A) Test results for (IHC or RODRÍGUEZ) testing are valid for specimens fixed between 6 and 72 hours. Delay to fixation, under fixation or over fixation fall outside of guidelines and may affect these results. Report electronically signed by (A) Deann Cabral M.D. I verify that I have examined all relevant slides/materials for the specimen(s) and rendered or confirmed the diagnosis. Gross Description (A) Received 6 alcohol-fixed smears and tissue. Received in formalin labeled with the patient's name, medical record number, and left neck lymph node are seven pale ortiz-pink soft tissue cores, 0.1 cm in average diameter and ranging from 0.5-1.1 cm in length. Specimens are submitted en toto in cassettes A1, three cores and A2, four cores. Grossed by AJB. Source A. Lymph node, Left neck, fine needle aspiration (A) Addendum (A) HPV (E6/E7) High Risk RODRÍGUEZ performed on block A1 is positive. This indicates positivity for one or more of the following types: 16, 18, 26, 31, 33, 35, 39, 45, 51, 52, 53, 56, 58, 59, 66, 68, 73, and 82. Signed by Deann Cabral M.D. 03/09/2023 6:24 PM This test was developed and its performance characteristics determined by [facility] in a manner consistent with CLIA requirements. This test has not been cleared or approved by the U.S. Food and Drug Administration. Interpretation (A) A. Lymph node, Left neck, fine needle aspiration (smears/core biopsy): Positive for malignancy. 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 Immunostains performed on block A1 show the neoplastic cells are positive for p40 and p16 (strong, diffuse), while negative for NUT. Comment: High-risk Human Papillomavirus (HPV) in situ hybridization (RODRÍGUEZ) studies will be performed, and the results will be reported in an addendum. *Note: Due to a large number of results and/or encounters for the requested time period, some results have not been displayed. A complete set of results can be found in Results Review. Assessment/Plan #1 Malignant Neoplasm Of Tonsil (HCC) #2 Secondary Malignant Neoplasm Lymph Node (HCC) Tad Roland is a 68 y.o. male with newly diagnosed p16+ SCC of the left oropharynx, cT2N1. Wediscussed that given the [place] burden, we would typically opt for non-surgical management. He has already met with Dr. Byrd and will be meeting with Fracisco Moreau from medical oncology today, as well as research coordinators as he may be a candidate for the definitive arm of DART 2.0. I will plan to see him back after he completes treatment. David Soto MD Otorhinolaryngology - Head & Neck Surgery GN AGENT documented in this encounter Consult Notes * Fracisco Barron P.A.-C. - 03/09/2023 1:30 PM CST SUBJECTIVE REASON FOR VISIT Collaborating Physician: Dr. Jaqui Lorenz [phone]) P16 positive SCC left tonsil primary with left cervical [place] involvement HISTORY OF PRESENT ILLNESS Mr. Roland is a 68 y.o. male with the following oncologic history: Oncology History Malignant Neoplasm Of Oropharynx (HCC) [...] p16 (strong, diffuse), while negative for NUT. INTERVAL HISTORY: Mr. Roland presents for consultation today regarding his left tonsil mass. He tells me this all started in November with a persistent left neck mass and sore throat with associated earpain. REVIEW OF SYSTEMS Pertinent items are noted in HPI; all other review of systems were negative. 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 PHYSICAL EXAMINATION General: 68 y.o. male, in no acute distress. Ambulates on and off the exam table without difficulty. Neuro: Alert and oriented. No focal neurologic deficits. ECOG score 0. DIAGNOSTICS I reviewed the imaging studies and agree with the interpretation as recorded. I reviewed the pertinent laboratory and diagnostic data. ASSESSMENT / PLAN ASSESSMENT/PLAN #1 Malignant Neoplasm Of Tonsil (HCC) Reviewed with Mr. Roland that surgical excision of his mass would not be the best route. We recommended primary chemoradiation therapy with weekly Cisplatin. He could enroll in DART 2.0, however, he prefers to get treatment in [place]. We will make the referral to our colleagues there to get started. I reviewed that the chemotherapy of choice is Cisplatin. He has no kidney concerns, hearing concerns or neuropathy. I reviewed schedule and additional side effects. PATIENT EDUCATION Ready to learn, no apparent learning barriers were identified; learning preferences include listening. Explained diagnosis and treatment plan; patient expressed understanding of the content. BILLING I spent a total time of 60 minutes with the patient on history/physical exam, counseling and coordination of care. GN AGENT documented in this encounter Plan of Treatment Upcoming Encounters Date Type Department Care Team (Late st Contact Info) Description 05/07/2023 8:00 AM DESIGN AGENT Appointment Department of Radiation Oncology in [address] [phone] Lauren Hernandez M.D. [address] [place] [phone] 05/07/2023 10:00 AM DESIGN AGENT Virtual Visit Division of Endocrinology in [place], [place] [address] [place] [phone] Kendra Tinsley APRN, C.N.PFco [address] [place] [phone] 05/08/2023 8:00 AM DESIGN AGENT Appointment Department of Radiation Oncology in [place], [place] [address] [place] [phone] Lauren Hernandez M.D. [address] [place] [phone] 05/11/2023 8:15 AM DESIGN AGENT Appointment Department of Radiation Oncology in [place], [place] [address] [place] [address] Lauren Hernandez M.D. [address] [place] [phone] documented as of this encounter Visit Diagnoses Diagnosis Malignant Neoplasm Of Tonsil (HCC)- Primary Secondary Malignant Neoplasm Lymph Node (HCC) documented in this encounter
--- OUTSIDE RECORDS SUMMARY | 2023-05-06 10:48 | XMS_ITS | Encounter Summary ---
Author Name Unknown Organization [facility] Address [address] [place] [address] Care Team Providers Care Public Stenographer Name Role Phone Unavailable Primary Care Provider Unavailabl e Reason for Referral * Outpatient (Routine) - Authorized Specialty Diagnoses / Procedures Referred By Diamond t Referred To Contact Medical Oncology Diagnoses Malignant Neoplasm Of Oropharynx (HCC) Fracisco Barron P.A.-C. [address] [place] [address] [facility] [address] [place] [address] Phone: [phone] Referral ID Status Reason Start Date Expiration Date Visits Requested Visits Authorized [id number] Authorized Patient Preference 3 03/11/2024 1 1 N RESOURCES OPERATIONS COORDINATOR Encounter Details Date Type Department Care Team (Late st Contact Info) Description 03/12/2023 Orders Only Department of Oncology in [place], [place] [address] [place] [phone] Ana Quinonez, RFcoNFco Malignant Neoplasm Of Oropharynx (HCC) (Primary Dx) [...] your living situation today? I have a [facility] place to live 03/01/2023 Sex and Gender Information Value Date Recorded Sex Assigned at Male 03/01/2023 1:25 PM HUMAN RESOURCES OPERATIONS COORDINATOR Gender Identity Male 03/01/2023 1:25 PM HUMAN RESOURCES OPERATIONS COORDINATOR Sexual Orientation Not on file documented as of this encounter Plan of Treatment Upcoming Encounters Date Type Department Care Team (Late st Contact Info) Description 05/07/2023 8:00 AM HUMAN RESOURCES OPERATIONS COORDINATOR Appointment Department of Radiation Oncology in [place], [place] [address] [place] [phone] Lauren Hernandez M.D. [address] [place] [address] 05/07/2023 10:00 AM HUMAN RESOURCES OPERATIONS COORDINATOR Virtual Visit Division of Endocrinology in [place], [place] [address] [place] [phone] Kendra Tinsley APRN, C.N.PFco [address] [place] [phone] 05/08/2023 8:00 AM HUMAN RESOURCES OPERATIONS COORDINATOR Appointment Department of Radiation Oncology in [place], [place] [address] [place] [phone] Lauren Hernandez M.D. [address] [place] [phone] 05/11/2023 8:15 AM HUMAN RESOURCES OPERATIONS COORDINATOR Appointment Department of Radiation Oncology in [place], [place] [address] [place] [phone] Lauren Hernandez M.D. [address] [place] [phone] documented as of this encounter Visit Diagnoses Diagnosis Malignant Neoplasm Of Oropharynx (HCC)- Primary documented in this encounter
--- OUTSIDE RECORDS SUMMARY | 2023-05-06 10:48 | XMS_ITS | Encounter Summary ---
Author Name Unknown Organization [facility] Address [address] [place] [address] Care Team Providers Care Proprietary Trader Name Role Phone Unavailable Primary Care Provider Unavailabl e Encounter Details Date Type Department Care Team (Late st Contact Info) Description 03/12/2023 Orders Only Department of Radiation Oncology in [place], [place] [address] [place] [address] Leesa Zamora Malignant Neoplasm Of Oropharynx (HCC) [...] your living situation today? I have a [facility] place to live 03/01/2023 Sex and Gender Information Value Date Recorded Sex Assigned at Male 03/01/2023 1:25 PM LABEL PRINTING MACHINIST Gender Identity Male 03/01/2023 1:25 PM LABEL PRINTING MACHINIST Sexual Orientation Not on file documented as of this encounter Plan of Treatment Upcoming Encounters Date Type Department Care Team (Late st Contact Info) Description 05/07/2023 8:00 AM LABEL PRINTING MACHINIST Appointment Department of Radiation Oncology in [place], [place] [address] [place] [phone] Lauren Hernandez M.D. 200 [place] [phone] 05/07/2023 10:00 AM LABEL PRINTING MACHINIST Virtual Visit Division of Endocrinology in [place], [place] [address] [place] [address] Kendra Tinsley APRN, C.N.P. [address] [place] [phone] 05/08/2023 8:00 AM LABEL PRINTING MACHINIST Appointment Department of Radiation Oncology in [place], [place] [address] [place] [phone] Lauren Hernandez M.D. 200 [place] [phone] 05/11/2023 8:15 AM LABEL PRINTING MACHINIST Appointment Department of Radiation Oncology in [place], [place] [address] [place] [phone] Lauren Hernandez M.D. 200 [place] [phone] documented as of this encounter Visit Diagnoses Diagnosis Malignant Neoplasm Of Oropharynx (HCC)- Primary documented in this encounter
--- OUTSIDE RECORDS SUMMARY | 2023-05-06 10:49 | XMS_ITS | Encounter Summary ---
Author Name Unknown Organization [facility] Address [address] [place] [address] Care Team Providers Care Interlocking Machine Operator Name Role Phone Unavailable Primary Care Provider Unavailabl e Reason for Referral * MRI/CAT/PET Scan (Routine) - Closed Specialty Diagnoses / Procedures Referred By Diamond montemayor Referred To Contact Diagnoses Mass Neck Mass Tonsil Procedures PET CT Skull to Thigh FDG David Soto M.D. 200 [place] [address] [facility] Referral ID Status Reason Start Date Expiration Date Visits Re quested Visits Authorized [id number] Closed 02/18/2023 02/18/2024 1 1 * Outpatient (Routine) - Closed Specialty Diagnoses / Procedures Referred By Diamond montemayor Referred To Contact Diagnoses Mass Neck Mass Tonsil Procedures US Lymph Node Biopsy David Soto M.D. 200 [place] [address] [facility] Referral ID Status Reason Start Date Expiration Date Visits Re quested Visits Authorized [id number] Closed 02/18/2023 02/18/2024 1 1 Encounter Details Date Type Department Care Team (Latest Contact Info) Description 02/18/2023 Orders Only Department of Otorhinolaryngology in [place], [place] [address] [place] [phone] Marlyn Santillan, RFcoN. [address] [place] [address] Mass Neck (Primary Dx); Mass Tonsil Social History Tobacco Use Types Packs/Day Years Used Date Smoking Tobacco: Unknown Overall Financial Resource Strain (CARDIA) Answe r [...] your living situation today? I have a [facility] place to live 03/01/2023 Sex and Gender Information Value Date Recorded Sex Assigned at Male 03/01/2023 1:25 PM DOOR CLAMP OPERATOR Gender Identity Male 03/01/2023 1:25 PM DOOR CLAMP OPERATOR Sexual Orientation Not on file documented as of this encounter Plan of Treatment Upcoming Encounters Date Type Department Care Team (Late st Contact Info) Description 05/07/2023 8:00 AM DOOR CLAMP OPERATOR Appointment Department of Radiation Oncology in [place], [place] [address] [place] [phone] Lauren Hernandez M.D. [address] [place] [phone] 05/07/2023 10:00 AM DOOR CLAMP OPERATOR Virtual Visit Division of Endocrinology in [place], [place] [address] [place] [phone] Kendra Tinsley APRN, C.N.P. [address] [place] [phone] 05/08/2023 8:00 AM DOOR CLAMP OPERATOR Appointment Department of Radiation Oncology in [address] [phone] Lauren Hernandez M.D. [address] [place] [phone] 05/11/2023 8:15 AM DOOR CLAMP OPERATOR Appointment Department of Radiation Oncology in [address] [phone] Lauren Hernandez M.D. [address] [place] [phone] documented as of this encounter Results * US Lymph Node Biopsy (03/05/2023 8:46 AM DOOR CLAMP OPERATOR) Anatomical Region Laterality Modality Body, Ultrasound RST LOS, Ul trasound ARZ LOS, Procedure FLA LOS, Abdominal FLA LOS, Procedural N/A Ultrasound 03/05/2023 9:13 AM DOOR CLAMP OPERATOR Impressions 03/05/2023 9:17 AM DOOR CLAMP OPERATOR Ultrasound-guided biopsy of an enlarged left neck lymph node. EP Narrative 03/05/2023 9:17 AM DOOR CLAMP OPERATOR EXAM: US LYMPH NODE BIOPSY PRE-PROCEDURE: Patient [...] DIAGNOSIS: Left neck adenopathy. Procedure Note Shaun oRsa M.D. - 03/05/2023 EXAM: US LYMPH NODE [...] David Soto M.D. IMNishant US PROCEDURES * PET CT Skull to Thigh FDG (03/02/2023 8:00 AM DOOR CLAMP OPERATOR) Anatomical Region Laterality Modality Body, Nuclear Medicine PET R ST LOS, PET ARZ LOS, Nuclear Medicine PET FLA LOS, Nuclear Medicine N/A Positron Emission Tomography (PET), Positron Emission Tomography (PET) 03/02/2023 8:32 AM DOOR CLAMP OPERATOR Impressions 03/02/2023 9:56 AM DOOR CLAMP OPERATOR 1. 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 2. ??Possible FDG avid colon polyp. Recommend colonoscopy correlation, if clinically indicated. Narrative 03/02/2023 9:56 AM DOOR CLAMP OPERATOR EXAM: ??PET CT SKULL TO THIGH FDG Serum glucose at time of F-18 FDG injection was 109 mg/dL. Patient followed standard dietary/fasting requirements for this exam. RADIOPHARMACEUTICAL/MEDS: Route: intravenous fludeoxyglucose F 18 injection SENIOR CARE (FDG F-18),9.96 millicurie TECHNIQUE: ??F-18 FDG PET/CT [...] RADIOPHARMACEUTICAL/MEDS: Route: intravenous fludeoxyglucose F 18 injection SENIOR CARE (FDG F-18),9.96 millicurie TECHNIQUE: F-18 FDG PET/CT [...] correlation, ifclinically indicated. David RAUSCH NM PROCEDURES documented in this encounter Visit Diagnoses Diagnosis Mass Neck- Primary Mass Tonsil Mass Neck Mass Tonsil Mass Neck Mass Tonsil documented in this encounter
--- OUTSIDE RECORDS SUMMARY | 2023-05-06 10:49 | XMS_ITS | Encounter Summary ---
Author Name Unknown Organization [facility] Address [address] [place] [id number] Care Team Providers Care Guest Relations Receptionist Name Role Phone Unavailable Primary Care Provider Unavailabl e Reason for Referral * Outpatient (Routine) - Closed Specialty Diagnoses / Procedures Referred By Diamond montemayor Referred To Contact Otorhinolaryngology David Soto M.D. [address] [place] [phone] [facility] Referral ID Status Reason Start Date Expiration Date Visits Re quested Visits Authorized [id number] Closed 03/05/2023 03/04/2026 1 1 GER OF INFORMATION * Outpatient (Routine) - Closed Specialty Diagnoses / Procedures Referred By Conttin t Referred To Contact Dentistry / Dental Specialties Diagnoses Other Diseases Of Pharynx Localized Enlarged Lymph Nodes David Soto M.D. [address] [place] [address] [facility] Referral ID Status Reason Start Date Expiration Date Visits Re quested Visits Authorized [id number] Closed 03/05/2023 03/04/2024 1 1 GER OF INFORMATION * Speech Pathology (Routine) - Closed Specialty Diagnoses / Procedures Referred By Conttin t Referred To Contact Diagnoses Other Diseases Of Pharynx Localized Enlarged Lymph Nodes Procedures FRONT MAN - Ongoing treatment David Soto M.D. [address] [place] [address] [place] [phone] [facility] Referral ID Status Reason Start Date Expiration Date Visits Re quested Visits Authorized [id number] Closed 03/05/2023 03/04/2024 1 1 GER OF INFORMATION * Outpatient (Routine) - Closed Specialty Diagnoses / Procedures Referred By Diamond montemayor Referred To Contact Diagnoses Other Diseases Of Pharynx Localized Enlarged Lymph Nodes Procedures FL Swallow Function with Video and Speech or OT David Soto M.D. [address] [place] [address] [facility] Referral ID Status Reason Start Date Expiration Date Visits Re quested Visits Authorized [id number] Closed 03/05/2023 03/04/2024 1 1 GER OF INFORMATION * Speech Pathology (Routine) - Closed Specialty Diagnoses / Procedures Referred By Diamond t Referred To Contact Diagnoses Other Diseases Of Pharynx Localized Enlarged Lymph Nodes Procedures FRONT MAN Dysphagia evaluate and treat David Soto M.D. [address] [place] [address] [facility] Referral ID Status Reason Start Date Expiration Date Visits Re quested Visits Authorized [id number] Closed 03/05/2023 03/04/2024 1 1 GER OF INFORMATION Reason for Visit * Outpatient (Routine) - Closed Specialty Diagnoses / Procedures Referred By Diamond montemayor Referred To Contact Otorhinolaryngology Diagnoses Other Diseases Of Pharynx Localized Enlarged Lymph Nodes Toi Yap M.D. [address], [place] [address] [facility] Referral ID Status Reason Start Date Expiration Date Visits Re quested Visits Authorized [id number] Closed 02/17/2023 02/17/2024 1 1 Encounter Details Date Type Department Care Team (Latest Contact Info) Description 03/05/2023 9:45 AM MANAGER OF INFORMATION Comprehensive Visit Department of Otorhinolaryngology in [place], [place] [address] [place] [address] David Soto M.D. [address] [place] [address] Malignant Neoplasm Of Oropharynx (HCC); Secondary Malignant [...] your living situation today? I have a [facility] [place] place to live 03/01/2023 Sex and Gender Information Value Date Recorded Sex Assigned at Male 03/01/2023 1:25 PM MANAGER OF INFORMATION Gender Identity Male 03/01/2023 1:25 PM MANAGER OF INFORMATION Sexual Orientation Not on file documented as of this encounter Consult Notes * David Soto M.D. - 03/05/2023 9:45 AM CST Images from the original note were not included. Clinic Note Date of visit: 03/05/2023 Patient name: Tad Roland : 1955 Referring Provider: Toi Yap M.D. [address] [place] [phone] Subjective Chief Complaint: neck mass HPI: Tad Roland is a 68 y.o. male who presents for evaluation of a left neck mass. He developed a mild sore throat in November that was progressive, and then noted a left neck mass. This prompted evaluation at an urgent care clinic, which in turn prompted an ultrasound and CT scan, which demonstrated left neck lymphadenopathy and suspicion for a left oropharyngeal mass. He presents here for further evaluation and management, having had a PET/CT here recently as well as neck biopsy earlier this morning. At this point, his symptoms primarily include left sore throat, neck mass, and fatigue. He denies any overt odynophagia or dysphagia, and is eating a full oral diet, however notes that it feels different when he does swallow. He had one isolated episode of left sided otalgia. He denies any hoarseness. He does feel a little more winded with activity lately. No weight loss. 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 Objective Physical exam: Constitutional Awake and alert, well nourished, no acute distress Communication Normal voice Head/face Normocephalic, face symmetric; Salivary glands normal to palpation without mass or induration Eyes EOMI, sclerae anicteric Ears AD: auricle and EAC unremarkable, TM intact without fluid : auricle and EAC unremarkable, TM intact without fluid Nose External appearance normal, dorsum midline; Normal appearance of septum and turbinates Nasopharynx No mass or lesion, normal mucosa Oral cavity Dentition in good repair; Mandibular mitra present Tongue midline, normal movement, no masses or lesions; Buccal, FOM, palatal mucosa unremarkable Oropharynx Firm mass in left oropharynx involving the left tonsil and glossotonsillar sulcus area, with minimal extension into left lateral base of tongue; vallecula appears uninvolved Larynx/ hypopharynx Normal appearance of epiglottis, AE folds, arytenoids, false cords, true cords, piriform sinuses Normal mobility of bilateral TVC No pooling of secretions No interarytenoid edema or erythema Neck Thick neck, with palpable left level 2 node 2-3 cm, mobile; no other overtly palpable lymph nodes Cardiovascular Skin warm and well-perfused, no edema Respiratory Normal work of breathing on room air, no stridor, normal chest excursion Musculoskeletal Normal gait and mobility Skin Warm and well perfused, no rashes Neuro CN II-XII intact Full facial movement bilaterally Psych Alert and oriented, mental status appropriate Procedure performed: Flexible fiberoptic laryngoscopy was performed after obtaining verbal informed consent. Mirror examunable to be performed due to gag reflex. The patient's nose was sprayed with a topical solution ofphenylephrine lidocaine. The scope was advanced through the nasal cavity towards the nasopharynx, oropharynx, larynx, and hypopharynx, with findings as described above in the exam. The patient tolerated the procedure well. Data review: Radiology reviewed: - PET/CT, 03/02/2023: IMPRESSION: 1. 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 2. Possible FDG avid colon polyp. Recommend colonoscopy correlation, if clinically indicated. 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 male who presents with a left oropharyngeal mass and left sided cervical lymphadenopathy. PET and CT imaging is most concerning for oropharyngeal malignancy. He underwent a left neck lymph node U/S guided biopsy today, which will hopefully help to determine the diagnosis. We had a discussion regarding potential etiologies, including HPV-positive and HPV- negative squamous cell carcinomas, as well as less common etiologies such as minor salivary gland malignancies or hematologic malignancies. We discussed that our treatment recommendations in his setting would depend on the underlying diagnosis, with upfront surgery favored for HPV-negative or non-squamous cell c arcinomas, and likely definitive chemoradiation for HPV associated cancer given the number of lymphnodes that appear to be involved, potentially as a part of DART 2.0. He would need to be be off hisXarelto for surgery. He is meeting with Dr. Byrd later today. We will arrange to have him follow up in [facility] clinic next week for multidisciplinary discussion including medical oncology, at which time wewill hopefully have his biopsy results, and can also arrange for dental evaluation and swallow study, and will ideally be able to make treatment planning decisions. David Soto MD Otorhinolaryngology - Head & Neck Surgery GER OF INFORMATION documented in this encounter Plan of Treatment Upcoming Encounters Date Type Department Care Team (Late st Contact Info) Description 05/07/2023 8:00 AM MANAGER OF INFORMATION Appointment Department of Radiation Oncology in [place], [place] [address] [place] [phone] Lauren Hernandez M.D. [address] [place] [phone] 05/07/2023 10:00 AM MANAGER OF INFORMATION Virtual Visit Division of Endocrinology in [place], [place] [address] [place] [phone] Kendra Tinsley APRN, C.N.P. [address] [place] [phone] 05/08/2023 8:00 AM MANAGER OF INFORMATION Appointment Department of Radiation Oncology in [place], [place] [address] [place] [phone] Lauren Hernandez M.D. [address] [place] [phone] 05/11/2023 8:15 AM MANAGER OF INFORMATION Appointment Department of Radiation Oncology in [place], [place] [address] [place] [address] Lauren Hernandez M.D. 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 Negative video swallowing study. Narrative 03/09/2023 10:53 AM MANAGER OF INFORMATION EXAM: FL SWALLOW FUNCTION WITH VIDEO AND [...] swallowing study. David Soto M.D. 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
--- OUTSIDE RECORDS SUMMARY | 2023-05-06 10:49 | XMS_ITS | Encounter Summary ---
Author Name Unknown Organization [facility] Address [address] [place] [address] Care Team Providers Care Dynamics Ax Technical Architect Name Role Phone Unavailable Primary Care Provider Unavailabl e Reason for Referral * Outpatient (Routine) - Closed Specialty Diagnoses / Procedures Referred By Diamond montemayor Referred To Contact Radiation Oncology Diagnoses Mass Tonsil Mass Neck David Soto M.D. [address] [place] [phone] [facility] Referral ID Status Reason Start Date Expiration Date Visits Re quested Visits Authorized [id number] Closed 02/24/2023 02/24/2024 1 1 APY ASSISTANT Reason for Visit * Outpatient (Routine) - Closed Specialty Diagnoses / Procedures Referred By Diamond montemayor Referred To Contact Radiation Oncology Diagnoses Mass Tonsil Mass Neck David Soto M.D. [address] [place] [phone] [facility] Referral ID Status Reason Start Date Expiration Date Visits Re quested Visits Authorized [id number] Closed 02/24/2023 02/24/2024 1 1 Encounter Details Date Type Department Care Team (Latest Contact Info) Description 03/05/2023 12:18 PM THERAPY ASSISTANT - 03/05/2023 1:35 PM THERAPY ASSISTANT Hospital Encounter Department of Radiation Oncology in [place], [place] [address] [place] [phone] Parvez Byrd M.D. [address] [place] [address] Malignant Neoplasm Of Tonsil (HCC) (Primary Dx); Mass Tonsil; Mass Neck Social History Tobacco Use Types Packs/Day Years [...] living situation today? I have a [facility] place to live 03/01/2023 Sex and Gender Information Value Date Recorded Sex Assigned at Male 03/01/2023 1:25 PM THERAPY ASSISTANT Gender Identity Male 03/01/2023 1:25 PM THERAPY ASSISTANT Sexual Orientation Not on file documented as of this encounter Last Filed Vital Signs Vital Sign Reading Time Taken Comments Blood Pressure - - Pulse - - Temperature - - Respiratory Rate - - Oxygen Saturation - - Inhaled Oxygen Concentration - - Weight 119 kg (261 lb 6.4 oz) 03/05/2023 1:06 PM THERAPY ASSISTANT Height - - Body Mass Index - [...] as of this encounter Consult Notes * Parvez Byrd M.D. - 03/05/2023 1:30 PM CST Images from the original note were not included. REF PROVIDER: David Soto M.D. [address] [place] [phone] CHIEF COMPLAINT/PURPOSE OF VISIT: Mr. Roland is a 68 y.o. year old male with a left glossotonsillar mass and associated left neck adenopathy, here for discussion concerning radiation therapy. HISTORY OF PRESENT ILLNESS: Mr. Roland is a male with a 3 ppd x 14 year history, although he quit in 2013. He presented with a persistently sore throat along with a left neck mass and was found to have adenopathy and a left oropharyngeal mass on the outside. He was referred to [facility] where a PET/CT was performed on 03/02 demonstrating: Focal intense FDG uptake within the left tonsil and tongue base with SUV max 17.7 (axial fused headand neck image 39 for example). Multiple metastatic FDG avid left cervical level IIA and IIB nodes, the largest and most avid measuring 13 mm in short axis with SUVmax of 9.4 (axial fused head and neck image 48). He saw Dr. Soto earlier today whose exam detailed a left glossotonsillar mass. He had a FNA performed on a left neck node earlier as well, path pending. I am asked to discuss the possible paths fortreatment triage with him concerning radiation therapy. CURRENT MEDICATIONS: Reviewed and updated in the EMR. ALLERGIES: No Known Allergies. PAST MEDICAL HISTORY: No past medical history on file. SURGICAL HISTORY: Past Surgical History: Procedure Laterality Date EXCISION LESION EYELID Right 11/27/2014 >Excisional biopsy of lesion. SOCIAL HISTORY: Social History Socioeconomic History Marital status: Spouse name: Not on file Number of children: Not on file Years of education: Not on file Highest education level: Not on file Occupational History Not on file Tobacco Use Smoking status: Former Types: Cigarettes Quit date: 09/01/2010 Years since quittin.5 Smokeless tobacco: Never Vaping Use Vaping Use: never used Substance and Sexual Activity Alcohol use: Not on file Drug use: Not on file Sexual activity: Not on file Other Topics Concern Not on file Social History Narrative Not on file Social Determinants of Health Financial Resource Strain: [...] Minutes of Exercise per Session: 30 min Intimate Partner Violence: Not on file Housing Stability: Low Risk (03/01/2023) Housing Stability Housing: Living Situation: I have a steady place to live FAMILY HISTORY: No family history on file. PHYSICAL EXAM: General: 68 y.o. year old male, in no acute distress. Ambulates on and off the exam table without difficulty. Neck: Palpable, mobile left level 2 lymph node, about 2 cm in size. Oral: Palpable lesion along the left tonsil / glossotonsillar sulcus. Tracks towards base of tongue. 1. Malignant Neoplasm Of Tonsil (HCC) 2. Mass Tonsil 3. Mass Neck I discussed possible treatment strategies with the patient presuming this is a SCC. We discussed pathways should this be HPV- vs HPV+ disease. Should this be HPV-, we would recommend TORS followed byadjuvant radiation +/- cisplatin depending upon DANIEL status. Should this be HPV+ disease, we would recommend definitive chemoradiation, potentially on DART 2 with the possibility of definitive de-escalation based upon ctDNA clearance. The patient understood these options. We next discussed logisticsof RT, including the simulation process, and expected acute/late effects of treatment / time courseof recovery. The patient last saw his home dentist in December and did not require any interventions. He inquired about treatment closer to home and is close to [place]. Further treatment triage to follow after pathology and HPV status are available. All questions were answered. PATIENT EDUCATION Ready to learn, no apparent learning barriers were identified; learning preferences include listening. Explained diagnosis and treatment plan; patient expressed understanding of the content. I have spent 30 minutes with this patient today in which 30 minutes was spent counseling and coordination of care. Signed by: Parvez Byrd M.D. 03/05/2023 1:25 PM THERAPY ASSISTANT APY ASSISTANT documented in this encounter Plan of Treatment Upcoming Encounters Date Type Department Care Team (Late st Contact Info) Description 05/07/2023 8:00 AM THERAPY ASSISTANT Appointment Department of Radiation Oncology in [address] [phone] Lauren Hernandez M.D. [address] [place] [phone] 05/07/2023 10:00 AM THERAPY ASSISTANT Virtual Visit Division of Endocrinology in [place], [place] [address] [place] [phone] Kendra Tinsley APRN, C.N.P. [address] [place] [phone] 05/08/2023 8:00 AM THERAPY ASSISTANT Appointment Department of Radiation Oncology in [address] [phone] Lauren Hernandez M.D. [address] [place] [phone] 05/11/2023 8:15 AM THERAPY ASSISTANT Appointment Department of Radiation Oncology in [address] [phone] Lauren Hernandez M.D. [address] [place] [phone] Scheduled Referrals Name Type Priority Associated Diagnoses Order Schedule Radiation Oncology - Head / neck consult (clinic) Outpatient Referral Routine Mass Tonsil Mass Neck Once for 1 Occurrences starting 03/05/2023 until 03/05/2023 documented as of this encounter Visit Diagnoses Diagnosis Malignant Neoplasm Of Tonsil (HCC)- Primary Mass Tonsil Mass Neck documented in this encounter
--- OUTSIDE RECORDS SUMMARY | 2023-05-06 10:49 | XMS_ITS | Encounter Summary ---
Author Name Unknown Organization [facility] Address [address] [place] [address] Care Team Providers Care Solar Sales Advisor Name Role Phone Unavailable Primary Care Provider Unavailabl e Reason for Referral * Outpatient (Routine) - Closed Specialty Diagnoses / Procedures Referred By Diamond montemayor Referred To Contact Diagnoses Mass Neck Mass Tonsil Procedures US Lymph Node Biopsy David Soto M.D. 200 [place] [address] [facility] Referral ID Status Reason Start Date Expiration Date Visits Re quested Visits Authorized [id number] Closed 02/18/2023 02/18/2024 1 1 IST ENZYMES Reason for Visit * Auth/Cert (Routine) Specialty Diagnoses / Procedures Referred By Diamond montemayor Referred To Contact Diagnoses Mass Neck Mass Tonsil Procedures US LYMPH NODE BIOPSY Referral ID Status Reason Start Date Expiration Date Visits Re quested Visits Authorized [id number] 1 1 Encounter Details Date Type Department Care Team (Latest Contact Info) Description 03/05/2023 8:10 AM CHEMIST ENZYMES - 03/06/2023 11:34 AM CHEMIST ENZYMES Hospital Encounter Department of Radiology, [facility], in [place], [place] 200 [place] [address] David Soto M.D. [address] [place] [phone] Mass Neck; Mass Tonsil Discharge Disposition: Home or Self Care Social [...] Sex Assigned at Male 03/01/2023 1:25 PM CHEMIST ENZYMES Gender Identity Male 03/01/2023 1:25 PM CHEMIST ENZYMES Sexual Orientation Not on file documented as of this encounter Discharge Instructions * Attachments The following attachments cannot be sent through Care Everywhere. * Care Following Your Lymph Node Biopsy (Cymraes) documented in this encounter Medications at Time [...] st Contact Info) Description 05/07/2023 8:00 AM CHEMIST ENZYMES Appointment Department of Radiation Oncology in [address] [phone] Lauren Hernandez M.D. [address] [place] [phone] 05/07/2023 10:00 AM CHEMIST ENZYMES Virtual Visit Division of Endocrinology in [place], [place] [address] [place] [address] Kendra Tinsley APRN, C.N.P. [address] [place] [phone] 05/08/2023 8:00 AM CHEMIST ENZYMES Appointment Department of Radiation Oncology in [place], [place] [address] [place] [address] Lauren Hernandez M.D. [address] [place] [phone] 05/11/2023 8:15 AM CHEMIST ENZYMES Appointment Department of Radiation Oncology in [place], [place] [address] [place] [phone] Lauren Hernandez M.D. [address] [place] [phone] documented as of this encounter Procedures Procedure Name Priority Date/Time Associated Diagnosis Comments US LYMPH NODE BIOPSY RAD - Routine (most inpatients and all outpatients) 03/05/2023 8:46 AM CHEMIST ENZYMES Mass Neck Mass Tonsil CYTOLOGY FINE NEEDLE ASPIRATION (INCLUDES CORE BIOPSIES Timed 03/05/2023 8:26 AM CHEMIST ENZYMES documented in this encounter Results * US Lymph Node Biopsy (03/05/2023 8:46 AM CHEMIST ENZYMES) Anatomical Region Laterality Modality Body, Ultrasound RST LOS, Ul trasound ARZ LOS, Procedure FLA LOS, Abdominal FLA LOS, Procedural N/A Ultrasound 03/05/2023 9:13 AM CHEMIST ENZYMES Impressions 03/05/2023 9:17 AM CHEMIST ENZYMES Ultrasound-guided biopsy of an enlarged left neck lymph node. EP Narrative 03/05/2023 9:17 AM CHEMIST ENZYMES EXAM: US LYMPH NODE BIOPSY PRE-PROCEDURE: Patient [...] Aspiration (including core biopsies) (03/05/2023 8:26 AM CHEMIST ENZYMES) (A) 3:41 PM CHEMIST ENZYMES DTL Disclaimer Test results for (IHC or RODRÍGUEZ) testing are valid for specimens fixed between 6 and 72 hours. ??Delay to fixation, under fixation or over fixation fall outside of guidelines and may affect these results. (A) 03/06/2023 3:41 PM CHEMIST ENZYMES DTL Report electronically signed by Deann Cabral M.D. I verify that I have examined all relevant slides/materials for the specimen(s) and rendered or confirmed the diagnosis. (A) 03/06/2023 3:41 PM CHEMIST ENZYMES DTL Gross Description Received 6 alcohol-fixed smears [...] ??Grossed by AJB. (A) 03/06/2023 3:41 PM CHEMIST ENZYMES DTL Source A. Lymph node, Left neck, fine needle aspiration(A) 03/06/2023 3:41 PM CHEMIST ENZYMES DTL Addendum HPV (E6/E7) High Risk RODRÍGUEZ performed on block A1 is positive. This indicates positivity for one or more of the following types: 16, 18, 26, 31, 33, 35, 39, 45, 51, 52, 53, 56, 58, 59, 66, 68, 73, and 82. Signed by Deann Cabral M.D. 03/09/2023 6:24 PM This test was developed and its performance characteristics determined by [facility] in a manner consistent with CLIA requirements. This test has not been cleared or approved by the U.S. Food and Drug Administration. (A) 03/09/2023 6:24 PM CHEMIST ENZYMES DTL Comment:REVISED RESULTS Interpretation A. Lymph node, [...] in an addendum. (A) 03/09/2023 6:24 PM CHEMIST ENZYMES DTL Tissue (Lymph Node) 03/05/2023 8:26 AM CHEMIST ENZYMES 03/05/2023 9:12 AM CHEMIST ENZYMES David Soto M.D. LAB SURG PATH [facility] [address] [place] [address], [facility] DTL [address] [facility] [address] [place] [address] documented in this encounter Visit Diagnoses Diagnosis Mass Neck Mass Tonsil documented in this encounter Administered Medications Inactive Administered Medications - up to 3 most recent administrations Medication Order MAR Action Action Date Dose Rate Site lidocaine 10 mg/mL (1 %) injection (XYLOCAINE) As needed, Starting on Kya 03/05/23 at 0840, Intra-Op Given 03/05/2023 8:40 AM CHEMIST ENZYMES 4 mL Left Neck documented in this encounter Active and Recently Administered Medications Times are shown in CHEMIST ENZYMES. PRN Medication Order 03/04/2023 03/05/2023 03/06/2023 lidocaine 10 mg/mL (1 %) injection (XYLOCAINE) (COMPLETED) As needed, Starting on Kya 03/05/23 at 0840, Intra-Op 0840 (Given - Provider: Elizabeth Rosa M.D.) documented in this encounter
--- OUTSIDE RECORDS SUMMARY | 2023-05-06 10:49 | XMS_ITS | Encounter Summary ---
Author Name Unknown Organization [facility] Address [address] [place] [address] Care Team Providers Care Car Painter Name Role Phone Unavailable Primary Care Provider Unavailabl e Reason for Visit * Reason Onset Date Comments Referral 02/20/2023 Encounter Details Date Type Department Care Team (Latest Contact Info) Description 02/20/2023 Clinical Communication Department of Otorhinolaryngology in [place], [place] [address] [place] [phone] Prescheduling, Provider Referral Social History Tobacco Use Types Packs/Day Years Used Date Smoking Tobacco: Unknown Nutrition Answer Date Recorded Nutrition: EVOO Fat Source Unknown 06/29 Nutrition: Servings of Fruits/Vegetables per Day Not on file 06/29/2020 Dental Answer Date Recorded Dental: Regular Dentist Unknown 06/30/19 21 Sex and Gender Information Value Date Recorded Sex Assigned at Male 03/01/2023 1:25 PM PEOPLESOFT HRMS DEVELOPER Gender Identity Male 03/01/2023 1:25 PM PEOPLESOFT HRMS DEVELOPER Sexual Orientation Not on file documented as of this encounter Plan of Treatment Upcoming Encounters Date Type Department Care Team (Late st Contact Info) Description 05/07/2023 8:00 AM PEOPLESOFT HRMS DEVELOPER Appointment Department of Radiation Oncology in [place], [place] [address] [place] [phone] Lauren Hernandez M.D. 200 [place] [address] 05/07/2023 10:00 AM PEOPLESOFT HRMS DEVELOPER Virtual Visit Division of Endocrinology in [place], [place] [address] [place] [address] [place] [phone] Kendra Tinsley APRN, C.N.P. [address] [place] [phone] 05/08/2023 8:00 AM PEOPLESOFT HRMS DEVELOPER Appointment Department of Radiation Oncology in [place], [place] [address] [place] [phone] Lauren Hernandez M.D. [address] [place] [address] 05/11/2023 8:15 AM PEOPLESOFT HRMS DEVELOPER Appointment Department of Radiation Oncology in [place], [place] [address] [place] [phone] Lauren Hernandez M.D. [address] [place] [phone] documented as of this encounter Visit Diagnoses Not on filedocumented in this encounter
--- OUTSIDE RECORDS SUMMARY | 2023-05-06 10:49 | XMS_ITS | Encounter Summary ---
Author Name Unknown Organization [facility] Address [address] [place] [address] Care Team Providers Care Lithographic Press Operator Name Role Phone Unavailable Primary Care Provider Unavailabl e Reason for Visit * Outpatient (Routine) - Closed Specialty Diagnoses / Procedures Referred By Diamond montemayor Referred To Contact Diagnoses Mass Neck Mass Tonsil Procedures US Thyroid US Head Neck Soft Tissue David Soto M.D. [address] [place] [phone] [facility] Referral ID Status Reason Start Date Expiration Date Visits Re quested Visits Authorized [id number] Closed 02/18/2023 02/18/2024 1 1 Encounter Details Date Type Department Care Team (Latest Contact Info) Description 02/26/2023 10:06 AM CDT - 02/26/2023 11:59 PM CDT Hospital Encounter Department of Radiology, [facility], in [place], [place] [address] [place] [address] David Soto M.D. [address] [place] [phone] Mass Neck; Mass Tonsil Discharge Disposition: Home [...] Sex Assigned at Male 03/01/2023 1:25 PM FRAMING MANAGER Gender Identity Male 03/01/2023 1:25 PM FRAMING MANAGER Sexual Orientation Not on file documented [...] st Contact Info) Description 05/07/2023 8:00 AM FRAMING MANAGER Appointment Department of Radiation Oncology in [address] [phone] Lauren Hernandez M.D. [address] [place] [phone] 05/07/2023 10:00 AM FRAMING MANAGER Virtual Visit Division of Endocrinology in [place], [place] [address] [place] [phone] Kendra Tinsley APRN, C.N.P. [address] [place] [phone] 05/08/2023 8:00 AM FRAMING MANAGER Appointment Department of Radiation Oncology in [address] [phone] Lauren Hernandez M.D. [address] [place] [phone] 05/11/2023 8:15 AM FRAMING MANAGER Appointment Department of Radiation Oncology in [address] [phone] Lauren Hernandez M.D. [address] [place] [phone] documented as of this encounter Procedures Procedure Name Priority Date/Time Associated Diagnosis Comments US THYROID RAD - Routine (most inpatients and all outpatients) 02/26/2023 11:20 AM CDT Mass Neck Mass Tonsil documented in this encounter Results * US Thyroid (02/26/2023 11:20 AM CDT) [...] biopsy. David Soto M.D. IMNishant US PROCEDURES documented in this encounter Visit Diagnoses Diagnosis Mass Neck Mass Tonsil documented in this encounter
--- OUTSIDE RECORDS SUMMARY | 2023-05-06 10:49 | XMS_ITS | Encounter Summary ---
Author Name Unknown Organization [facility] Address [address] [place] [address] Care Team Providers Care Dialysis Technician Name Role Phone Unavailable Primary Care Provider Unavailabl e Reason for Visit * Reason Onset Date Comments Previsit Preparation 02/27/2023 Encounter Details Date Type Department Care Team (Latest Contact Info) Description 02/27/2023 10:00 AM CDT Clinical Communication Virtual Review in [place], [place] 200 [place] [address] Previsit Preparation Social History Tobacco Use Types Packs/Day Years Used Date Smoking Tobacco: Former Cigarettes Q uit: 09/01/2010 Smokeless Tobacco: Never Tobacco Cessation:Counseling Given: Not Answered Nutrition Answer Date Recorded Nutrition: EVOO Fat Source Unknown 06/29 Nutrition: Servings of Fruits/Vegetables per Day Not on file 06/29/2020 Dental Answer Date Recorded Dental: Regular Dentist Unknown 06/30/19 21 Sex and Gender Information Value Date Recorded Sex Assigned at Male 03/01/2023 1:25 PM DIRECTOR OF PHOTOGRAPHY Gender Identity Male 03/01/2023 1:25 PM DIRECTOR OF PHOTOGRAPHY Sexual Orientation Not on file documented as of this encounter Plan of Treatment Upcoming Encounters Date Type Department Care Team (Late st Contact Info) Description 05/07/2023 8:00 AM DIRECTOR OF PHOTOGRAPHY Appointment Department of Radiation Oncology in [place], [place] [address] [place] [phone] Lauren Hernandez M.D. [address] [place] [phone] 05/07/2023 10:00 AM DIRECTOR OF PHOTOGRAPHY Virtual Visit Division of Endocrinology in [place], [place] [address] [place] [phone] Kendra Tinsley APRN, C.N.P. [address] [place] [phone] 05/08/2023 8:00 AM DIRECTOR OF PHOTOGRAPHY Appointment Department of Radiation Oncology in [place], [place] [address] [place] [phone] Lauren Hernandez M.D. [address] [place] [phone] 05/11/2023 8:15 AM DIRECTOR OF PHOTOGRAPHY Appointment Department of Radiation Oncology in [place], [place] [address] [place] [phone] Lauren Hernandez M.D. [address] [place] [phone] documented as of this encounter Visit Diagnoses Not on filedocumented in this encounter
--- OUTSIDE RECORDS SUMMARY | 2023-05-06 10:49 | XMS_ITS | Encounter Summary ---
Author Name Unknown Organization [facility] Address [address] [place] [address] Care Team Providers Care Experimental Mechanic Electrical Name Role Phone Unavailable Primary Care Provider Unavailabl e Reason for Visit * Reason Onset Date Comments OSM Request 02/25/2023 Encounter Details Date Type Department Care Team (Latest Contact Info) Description 02/25/2023 Clinical Communication Department of Otorhinolaryngology in [place], [place] [address] [place] [phone] David Soto M.D. [address] [place] [phone] OSM Request Social History Tobacco Use Types Packs/Day Years [...] your living situation today? I have a [facility] place to live 03/01/2023 Sex and Gender Information Value Date Recorded Sex Assigned at Male 03/01/2023 1:25 PM BROACH TROUBLE SHOOTER Gender Identity Male 03/01/2023 1:25 PM BROACH TROUBLE SHOOTER Sexual Orientation Not on file documented as of this encounter Miscellaneous Notes * Telephone Encounter - Shara Sarmiento - 02/27/2023 12:13 PM CDT Patient's imaging is now in Q-reads, no pathology needed. * Telephone Encounter - Shara Sarmiento - 02/26/2023 1:40 PM CDT Called to request imaging from: [facility] Attn: Abel[facility] [place], [place] They are electronically pushing his imagin02/02/23-US Neck 02/12/23-CT Neck documented in this encounter Plan of Treatment Upcoming Encounters Date Type Department Care Team (Late st Contact Info) Description 05/07/2023 8:00 AM BROACH TROUBLE SHOOTER Appointment Department of Radiation Oncology in [place], [place] [address] [place] [address] Lauren Hernandez M.D. [address] [place] [phone] 05/07/2023 10:00 AM BROACH TROUBLE SHOOTER Virtual Visit Division of Endocrinology in [place], [place] [address] [place] [address] Kendra Tinsley APRN, C.N.PFco [address] [place] [phone] 05/08/2023 8:00 AM BROACH TROUBLE SHOOTER Appointment Department of Radiation Oncology in [place], [place] [address] [place] [phone] Lauren Hernandez M.D. [address] [place] [phone] 05/11/2023 8:15 AM BROACH TROUBLE SHOOTER Appointment Department of Radiation Oncology in [place], [place] [address] [place] [phone] Lauren Hernandez M.D. [address] [place] [phone] documented as of this encounter Visit Diagnoses Not on filedocumented in this encounter
--- OUTSIDE RECORDS SUMMARY | 2023-05-06 10:49 | XMS_ITS | Encounter Summary ---
Author Name Unknown Organization [facility] Address [address] [place] [address] Care Team Providers Care Corporate Security Manager Name Role Phone Unavailable Primary Care Provider Unavailabl e Reason for Visit * Reason Onset Date Comments Referral 02/23/2023 Encounter Details Date Type Department Care Team (Latest Contact Info) Description 02/23/2023 Clinical Communication Department of Otorhinolaryngology in [place], [place] [address] [place] [phone] Prescheduling, Provider Referral Social History Tobacco Use Types Packs/Day Years Used Date Smoking Tobacco: Unknown Nutrition Answer Date Recorded Nutrition: EVOO Fat Source Unknown 06/29 Nutrition: Servings of Fruits/Vegetables per Day Not on file 06/29/2020 Dental Answer Date Recorded Dental: Regular Dentist Unknown 06/30/19 21 Sex and Gender Information Value Date Recorded Sex Assigned at Male 03/01/2023 1:25 PM CURB ATTENDANT Gender Identity Male 03/01/2023 1:25 PM CURB ATTENDANT Sexual Orientation Not on file documented as of this encounter Plan of Treatment Upcoming Encounters Date Type Department Care Team (Late st Contact Info) Description 05/07/2023 8:00 AM CURB ATTENDANT Appointment Department of Radiation Oncology in [place], [place] [address] [place] [phone] Lauren Hernandez M.D. [address] [place] [address] 05/07/2023 10:00 AM CURB ATTENDANT Virtual Visit Division of Endocrinology in [place], [place] [address] [place] [address] [place] [phone] Kendra Tinsley APRN, C.N.P. [address] [place] [address] 05/08/2023 8:00 AM CURB ATTENDANT Appointment Department of Radiation Oncology in [place], [place] [address] [place] [phone] Lauren Hernandez M.D. [address] [place] [address] 05/11/2023 8:15 AM CURB ATTENDANT Appointment Department of Radiation Oncology in [place], [place] [address] [place] [phone] Lauren Hernandez M.D. [address] [place] [phone] documented as of this encounter Visit Diagnoses Not on filedocumented in this encounter
--- OUTSIDE RECORDS SUMMARY | 2023-05-06 10:49 | XMS_ITS | Encounter Summary ---
Author Name Unknown Organization [facility] Address [address] [place] [address] Care Team Providers Care Global Program Manager Name Role Phone Unavailable Primary Care Provider Unavailabl e Reason for Referral * Outpatient (Routine) - Closed Specialty Diagnoses / Procedures Referred By Diamond montemayor Referred To Contact Radiation Oncology Diagnoses Mass Tonsil Mass Neck David Soto M.D. [address] [place] [address] [facility] Referral ID Status Reason Start Date Expiration Date Visits Re quested Visits Authorized [id number] Closed 02/24/2023 02/24/2024 1 1 Encounter Details Date Type Department Care Team (Latest Contact Info) Description 02/24/2023 Orders Only Department of Otorhinolaryngology in [place], [place] [address] [place] [phone] Marlyn Santillan RJurgen [address] [place] [phone] Mass Tonsil (Primary Dx); Mass Neck Social History Tobacco Use Types [...] your living situation today? I have a [facility] place to live 03/01/2023 Sex and Gender Information Value Date Recorded Sex Assigned at Male 03/01/2023 1:25 PM EXPERIENCE SPECIALIST Gender Identity Male 03/01/2023 1:25 PM EXPERIENCE SPECIALIST Sexual Orientation Not on file documented as of this encounter Plan of Treatment Upcoming Encounters Date Type Department Care Team (Late st Contact Info) Description 05/07/2023 8:00 AM EXPERIENCE SPECIALIST Appointment Department of Radiation Oncology in [place], [place] [address] [place] [phone] Lauren Hernandez M.D. 200 [place] [address] 05/07/2023 10:00 AM EXPERIENCE SPECIALIST Virtual Visit Division of Endocrinology in [place], [place] [address] [place] [address] Kendra Tinsley APRN, C.N.P. [address] [place] [address] 05/08/2023 8:00 AM EXPERIENCE SPECIALIST Appointment Department of Radiation Oncology in [place], [place] [address] [place] [phone] Lauren Hernandez M.D. [address] [place] [address] 05/11/2023 8:15 AM EXPERIENCE SPECIALIST Appointment Department of Radiation Oncology in [place], [place] [address] [place] [address] Lauren Hernandez M.D. 200 [place] [phone] Scheduled Referrals Name Type Priority Associated Diagnoses Orde r Schedule Radiation Oncology - Head / neck consult (clinic) Outpatient Referral Routine Mass Tonsil Mass Neck Expected: 02/24/2023 (Approximate), Expires: 05/27/2024 documented as of this encounter Results * Magnesium (03/02/2023 8:11 AM EXPERIENCE SPECIALIST) Pathologist [facility] [place] Magnesium, S 2.3 1.7 - 2.3 mg/dL 03/02/2023 9:21 AM EXPERIENCE SPECIALIST DTL Blood (Blood, Venous) 03/02/2023 8:11 AM EXPERIENCE SPECIALIST 03/02/2023 9:04 AM EXPERIENCE SPECIALIST David Soto M.D. LAB BLOOD ADD-ON [facility] [address] [place] [address], [facility] [address] [place] [address] * CBC with Differential, Blood (03/02/2023 8:11 AM EXPERIENCE SPECIALIST) Pathologist [facility] [place] Hemoglobin 15.5 13.2 - 16.6 g/dL 03/02/2023 9:20 AM EXPERIENCE SPECIALIST DTL Hematocrit 46.1 38.3 - 48.6 % 03/02/2023 9:20 AM EXPERIENCE SPECIALIST DTL Erythrocytes 5.02 4.35 - 5.65 x10(12)/L 03/02/2023 9:20 AM EXPERIENCE SPECIALIST DTL MCV 91.8 78.2 - 97.9 fL 03/02/2023 9:20 AM EXPERIENCE SPECIALIST DTL RBC Distrib Width 12.9 11.8 - 14.5 % 03/02/2023 9:20 AM EXPERIENCE SPECIALIST DTL Platelet Count 138 135 - 317 x10(9)/L 03/02/2023 9:20 AM EXPERIENCE SPECIALIST DTL Leukocytes 5.4 3.4 - 9.6 x10(9)/L 03/02/2023 9:20 AM EXPERIENCE SPECIALIST DTL Neutrophils 2.31 1.56 - 6.45 x10(9)/L 03/02/2023 9:20 AM EXPERIENCE SPECIALIST PM Lymphocytes 2.63 0.95 - 3.07 x10(9)/L 03/02/2023 9:20 AM EXPERIENCE SPECIALIST DTL Monocytes 0.45 0.26 - 0.81 x10(9)/L 03/02/2023 9:20 AM EXPERIENCE SPECIALIST DTL Eosinophils <0.03 0.03 - 0.48 x10(9)/L 03/02/2023 9:20 AM EXPERIENCE SPECIALIST DTL Basophils <0.03 0.01 - 0.08 x10(9)/L 03/02/2023 9:20 AM EXPERIENCE SPECIALIST DTL Blood (Blood, Venous) 03/02/2023 8:11 AM EXPERIENCE SPECIALIST 03/02/2023 8:35 AM EXPERIENCE SPECIALIST David Soto M.D. LAB BLOOD ADD-ON [facility] [address] [place] [address], [facility] DTL [facility] [address] [place] [address] [facility] [address] [place] [address] * Bilirubin, Direct (03/02/2023 8:11 AM EXPERIENCE SPECIALIST) Bilirubin, Direct, S <0.2 0.0 - 0.3 mg/dL 03/02/2023 9:21 AM EXPERIENCE SPECIALIST DTL Blood (Blood, Venous) 03/02/2023 8:11 AM EXPERIENCE SPECIALIST 03/02/2023 9:04 AM EXPERIENCE SPECIALIST David Soto M.D. LAB BLOOD ADD-ON [facility] [address] [place] [address], [facility] DTL [facility] [address] [place] [address] * (ABNORMAL) Comprehensive Metabolic Panel (03/02/2023 8:11 AM EXPERIENCE SPECIALIST) Pathologist [facility] [place] Potassium, S 4.9 3.6 - 5.2 mmol/L 03/02/2023 9:21 AM EXPERIENCE SPECIALIST DTL Sodium, S 141 135 - 145 mmol/L 03/02/2023 9:21 AM EXPERIENCE SPECIALIST DTL Chloride, S 104 98 - 107 mmol/L 03/02/2023 9:21 AM EXPERIENCE SPECIALIST DTL Bicarbonate, S 27 22 - 29 mmol/L 03/02/2023 9:21 AM EXPERIENCE SPECIALIST DTL Anion Gap 10 7 - 15 03/02/2023 9:21 AM EXPERIENCE SPECIALIST DTL BUN (Blood Urea Nitrogen), S 17 8 - 24 mg/dL 03/02/2023 9:21 AM EXPERIENCE SPECIALIST DTL Creatinine 1.35 0.74 - 1.35 mg/dL 03/02/2023 9:21 AM EXPERIENCE SPECIALIST DTL Estimated GFR (eGFR) 58(L) >=60 mL/min/BS A 03/02/2023 9:21 AM EXPERIENCE SPECIALIST DTL Comment: Estimated GFR calculated using the 2020 CKD_EPI creatinine equation. Calcium, Total, S 9.0 8.8 - 10.2 mg/dL 03/02/2023 9:21 AM EXPERIENCE SPECIALIST DTL Glucose, S 98 70 - 140 mg/dL 03/02/2023 9:21 AM EXPERIENCE SPECIALIST DTL Protein, Total, S 6.8 6.3 - 7.9 g/dL 03/02/2023 9:21 AM EXPERIENCE SPECIALIST DTL Albumin, S 4.2 3.5 - 5.0 g/dL 03/02/2023 9:21 AM EXPERIENCE SPECIALIST DTL Aspartate Aminotransferase (AST), S 41 8 - 48 U/L 03/02/2023 9:21 AM EXPERIENCE SPECIALIST DTL Alkaline Phosphatase, S 67 40 - 129 U/L 03/02/2023 9:21 AM EXPERIENCE SPECIALIST DTL Alanine Aminotransferase (ALT), S 52 7 - 55 U/L 03/02/2023 9:21 AM EXPERIENCE SPECIALIST DTL Bilirubin, Total, S 0.4 0.0 - 1.2 mg/dL 03/02/2023 9:21 AM EXPERIENCE SPECIALIST DTL Blood (Blood, Venous) 03/02/2023 8:11 AM EXPERIENCE SPECIALIST 03/02/2023 9:04 AM EXPERIENCE SPECIALIST David Soto M.D. LAB BLOOD ADD-ON [facility] [address] [place] [address], [facility] DTL [facility] [address] [place] [address] documented in this encounter Visit Diagnoses Diagnosis Mass Tonsil- Primary Mass Neck documented in this encounter
--- OUTSIDE RECORDS SUMMARY | 2023-05-06 10:49 | XMS_ITS | Encounter Summary ---
Author Name Unknown Organization [facility] Address [address] [place] [address] Care Team Providers Care Tangled Yarn Spool Straightener Name Role Phone Unavailable Primary Care Provider Unavailabl e Reason for Visit * Reason Onset Date Comments Appt Question 02/23/2023 Encounter Details Date Type Department Care Team (Latest Contact Info) Description 02/23/2023 Clinical Communication Department of Otorhinolaryngology in [place], [place] [address] [place] [address] Prescheduling, Provider Appt Question Social History Tobacco Use Types Packs/Day Years [...] your living situation today? I have a [facility] [facility] [employer] place to live 03/01/2023 Sex and Gender Information Value Date Recorded Sex Assigned at Male 03/01/2023 1:25 PM GOVERNMENT AFFAIRS FELLOW Gender Identity Male 03/01/2023 1:25 PM GOVERNMENT AFFAIRS FELLOW Sexual Orientation Not on file documented as of this encounter Plan of Treatment Upcoming Encounters Date Type Department Care Team (Late st Contact Info) Description 05/07/2023 8:00 AM GOVERNMENT AFFAIRS FELLOW Appointment Department of Radiation Oncology in [place], [place] [address] [place] [phone] Lauren Hernandez M.D. [address] [place] [phone] 05/07/2023 10:00 AM GOVERNMENT AFFAIRS FELLOW Virtual Visit Division of Endocrinology in [place], [place] [address] [place] [address] Kendra Tinsley APRN, C.N.P. [address] [place] [phone] 05/08/2023 8:00 AM GOVERNMENT AFFAIRS FELLOW Appointment Department of Radiation Oncology in [place], [place] [address] [place] [phone] Lauren Hernandez M.D. [address] [place] [address] 05/11/2023 8:15 AM GOVERNMENT AFFAIRS FELLOW Appointment Department of Radiation Oncology in [place], [place] [address] [place] [phone] Lauren Hernandez M.D. 200 [place] [phone] documented as of this encounter Visit Diagnoses Not on filedocumented in this encounter
--- OUTSIDE RECORDS SUMMARY | 2023-05-06 10:49 | XMS_ITS | Encounter Summary ---
Author Name Unknown Organization [facility] Address [address] [place] [address] Care Team Providers Care Power Shovel Engineer Name Role Phone Unavailable Primary Care Provider Unavailabl e Encounter Details Date Type Department Care Team (Latest Contact Info) Description 03/05/2023 10:55 AM HELP DESK INTERNSHIP Ancillary Procedure Department of Otorhinolaryngology Social History Tobacco Use Types Packs/Day Years [...] your living situation today? I have a [facility] place to live 03/01/2023 Sex and Gender Information Value Date Recorded Sex Assigned at Male 03/01/2023 1:25 PM HELP DESK INTERNSHIP Gender Identity Male 03/01/2023 1:25 PM HELP DESK INTERNSHIP Sexual Orientation Not on file documented as of this encounter Plan of Treatment Upcoming Encounters Date Type Department Care Team (Late st Contact Info) Description 05/07/2023 8:00 AM HELP DESK INTERNSHIP Appointment Department of Radiation Oncology in [address] [phone] Lauren Hernandez M.D. [address] [place] [phone] 05/07/2023 10:00 AM HELP DESK INTERNSHIP Virtual Visit Division of Endocrinology in [place], [place] [address] [place] [phone] Kendra Tinsley, PATRICE, C.N.P. [address] [place] [phone] 05/08/2023 8:00 AM HELP DESK INTERNSHIP Appointment Department of Radiation Oncology in [address] [phone] Lauren Hernandez M.D. [address] [place] [phone] 05/11/2023 8:15 AM HELP DESK INTERNSHIP Appointment Department of Radiation Oncology in [address] [phone] Lauren Hernandez M.D. [address] [place] [address] documented as of this encounter Procedures Procedure Name Priority Date/Time Associated Diagnosis Comments OTORHINOLARYNGOLOGY IMAGE EXAM Routine 03/05/2023 10:11 AM HELP DESK INTERNSHIP documented in this encounter Results * Direct Laryngoscopy-Otorhinolaryngology Image Exam (03/05/2023 10:11 AM HELP DESK INTERNSHIP) 03/05/2023 10:5 1 AM HELP DESK INTERNSHIP Narrative IIMS - 03/05/2023 10:11 AM HELP DESK INTERNSHIP This order has been created and auto-finalized to support the import of images acquired without order. The clinical documentation to support these images can be found on the encounter that produced images. Provider Not In System IMG NON RAD IMAGI NG PROCEDURES IIMS NA documented in this encounter Visit Diagnoses Not on filedocumented in this encounter
--- OUTSIDE RECORDS SUMMARY | 2023-05-06 10:49 | XMS_ITS | Encounter Summary ---
Author Name Unknown Organization [facility] Address [address] [place] [address] Care Team Providers Care Assembly Department Supervisor Name Role Phone Unavailable Primary Care Provider Unavailabl e Reason for Referral * MRI/CAT/PET Scan (Routine) - Closed Specialty Diagnoses / Procedures Referred By Diamond montemayor Referred To Contact Diagnoses Mass Neck Mass Tonsil Procedures PET CT Skull to Thigh FDG David Soto M.D. [address] [place] [phone] [facility] Referral ID Status Reason Start Date Expiration Date Visits Re quested Visits Authorized [id number] Closed 02/18/2023 02/18/2024 1 1 EYOR MAN Reason for Visit * MRI/CAT/PET Scan (Routine) - Closed Specialty Diagnoses / Procedures Referred By Diamond montemayor Referred To Contact Diagnoses Mass Neck Mass Tonsil Procedures PET CT Skull to Thigh FDG David Soto M.D. [address] [place] [phone] [facility] Referral ID Status Reason Start Date Expiration Date Visits Re quested Visits Authorized [id number] Closed 02/18/2023 02/18/2024 1 1 Encounter Details Date Type Department Care Team (Latest Contact Info) Description 03/02/2023 5:54 AM CONVEYOR MAN - 03/02/2023 11:59 PM CONVEYOR MAN Hospital Encounter Department of Radiology, [facility], in [place], [place] [address] [place] [address] David Soto M.D. [address] [place] [address] Mass Neck; Mass Tonsil Discharge Disposition: Home [...] your living situation today? I have a [facility] place to live 03/01/2023 Sex and Gender Information Value Date Recorded Sex Assigned at Male 03/01/2023 1:25 PM CONVEYOR MAN Gender Identity Male 03/01/2023 1:25 PM CONVEYOR MAN Sexual Orientation Not on file documented as [...] st Contact Info) Description 05/07/2023 8:00 AM CONVEYOR MAN Appointment Department of Radiation Oncology in [address] [phone] Lauren Hernandez M.D. [address] [place] [phone] 05/07/2023 10:00 AM CONVEYOR MAN Virtual Visit Division of Endocrinology in [place], [place] [address] [place] [phone] Kendra Tinsley APRN, C.N.P. [address] [place] [phone] 05/08/2023 8:00 AM CONVEYOR MAN Appointment Department of Radiation Oncology in [address] [phone] Lauren Hernandez M.D. [address] [place] [phone] 05/11/2023 8:15 AM CONVEYOR MAN Appointment Department of Radiation Oncology in [address] [phone] Lauren Hernandez M.D. [address] [place] [phone] documented as of this encounter Procedures Procedure Name Priority Date/Time Associated Diagnosis Comments PET CT SKULL TO THIGH RAD - Routine (most inpatients and all outpatients) 03/02/2023 8:00 AM CONVEYOR MAN Mass Neck Mass Tonsil documented in this encounter Results * PET CT Skull to Thigh FDG (03/02/2023 8:00 AM CONVEYOR MAN) Anatomical Region Laterality Modality Body, Nuclear Medicine PET R ST LOS, PET ARZ LOS, Nuclear Medicine PET FLA LOS, Nuclear Medicine N/A Positron Emission Tomography (PET), Positron Emission Tomography (PET) 03/02/2023 8:32 AM CONVEYOR MAN Impressions 03/02/2023 9:56 AM CONVEYOR MAN 1. 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 2. ??Possible FDG avid colon polyp. Recommend colonoscopy correlation, if clinically indicated. Narrative 03/02/2023 9:56 AM CONVEYOR MAN EXAM: ??PET CT SKULL TO THIGH FDG [...] MAR Action Action Date Dose Rate Site fludeoxyglucose F 18 injection ALF (FDG F-18) 4.5-16.5 millicurie, intravenous, Once, On 03/02/23 at 0645, For 1 dose, Imaging Protocol Orders Given 03/02/2023 6:13 AM CONVEYOR MAN 9.96 millicuries documented in this encounter
--- OUTSIDE RECORDS SUMMARY | 2023-05-06 10:50 | XMS_ITS | Encounter Summary ---
Author Name Unknown Organization [facility] Address [address] [place] [address] Care Team Providers Care Core Feeder Name Role Phone Unavailable Primary Care Provider Unavailabl e Encounter Details Date Type Department Care Team (Late st Contact Info) Description 11/27/2014 Historical Ophthalmology RST OPH Woodrow Epstein M.D. [address] [place] [address] Social History Tobacco Use Types Packs/Day Years Used Date Smoking Tobacco: Never Assessed Sex and Gender Information Value Date Recorded Sex Assigned at Male 03/01/2023 1:25 PM SUBMARINE ADVISORY TEAM WATCH OFFICER Gender Identity Male 03/01/2023 1:25 PM SUBMARINE ADVISORY TEAM WATCH OFFICER Sexual Orientation Not on file documented as of this encounter Progress Notes * Woodrow Epstein M.D. - 11/27/2014 10:18 AM CDT Eye General CHIEF COMPLAINT right lower eyelid lesion HISTORY OF PRESENT ILLNESS MLF: Mr. Roland is here for evaluation of a lesion on the medial right lower eyelid of which he has been aware for about 8 months. He was referred due to concern for possible basal cell carcinoma; thelesion has not been biopsied. He has no other eye diseases or concerns. He has no history of skin cancers. No use of daily blood thinners. GBB: Above history reviewed with patient; emendations made. IMPRESSION / REPORT / PLAN #1 Lesion, right nasojugal fold History and clinical features are suggestive of an inclusion cyst. Options include observation versus excisional biopsy. Excision is reasonable in light of the history of recent growth and the opportunity to establish a tissue diagnosis. Expectations and risks discussed. The patient understands andwishes to proceed. DIAGNOSIS #1 Lesion, right nasojugal fold CDM Reports - EYEGEN Id: [id number] Status: Fnl documented in this encounter Plan of Treatment Upcoming Encounters Date Type Department Care Team (Late st Contact Info) Description 05/07/2023 8:00 AM SUBMARINE ADVISORY TEAM WATCH OFFICER Appointment Department of Radiation Oncology in [address] [phone] Lauren Hernandez M.D. [address] [place] [phone] 05/07/2023 10:00 AM SUBMARINE ADVISORY TEAM WATCH OFFICER Virtual Visit Division of Endocrinology in [place], [place] [address] [place] [phone] Kendra Tinsley, PATRICE, C.N.P. [address] [place] [phone] 05/08/2023 8:00 AM SUBMARINE ADVISORY TEAM WATCH OFFICER Appointment Department of Radiation Oncology in [address] [phone] Lauren Hernandez M.D. [address] [place] [phone] 05/11/2023 8:15 AM SUBMARINE ADVISORY TEAM WATCH OFFICER Appointment Department of Radiation Oncology in [address] [phone] Lauren Hernandez M.D. [address] [place] [phone] documented as of this encounter Visit Diagnoses Not on filedocumented in this encounter
--- OUTSIDE RECORDS SUMMARY | 2023-05-06 10:50 | XMS_ITS | Clinical Summary ---
Author Name Unknown Organization [facility] Address [place], [place] [address] Care Team Providers Care Quilter Fixer Name Role Phone Dedar Brennan MD Primary Care Provider [phone] Allergies No known active allergies Medications No known medications Active Problems No known active problems Social History Tobacco Use Types Packs/Day Years Used Date Smoking Tobacco: Never Assessed Sex and Gender Information Value Date Recorded Sex Assigned at Not on file Gender Identity Not on file Sexual Orientation Not on file Obstetrics History Plan of [...] series for age 50+ (1 of 2) 02/17/20 07 Pneumococcal series for age 65+ (1 of 1 - PCV) 022 Influenza for age 65+ 12/26/2022 Care Teams Quilter Fixer Relationship Specialty Start Date End Date Dedra Brennan MD PCP - General 10/26/07
--- OUTSIDE RECORDS SUMMARY | 2023-05-06 10:50 | XMS_ITS | Encounter Summary ---
Author Name Unknown Organization [facility] Address [address] [place] [address] Care Team Providers Care Senior Accounting Associate Name Role Phone Unavailable Primary Care Provider Unavailabl e Reason for Referral * Outpatient (Routine) - Closed Specialty Diagnoses / Procedures Referred By Contac t Referred To Contact Otorhinolaryngology Diagnoses Other Diseases Of Pharynx Localized Enlarged Lymph Nodes Toi Yap M.D. [address] [address] [facility] Referral ID Status Reason Start Date Expiration Date Visits Re quested Visits Authorized [id number] Closed 02/17/2023 02/17/2024 1 1 Encounter Details Date Type Department Care Team (Late st Contact Info) Description 02/17/2023 [facility] [address] [place] [address] Toi Yap M.D. [address] [place] [address] Other Diseases Of Pharynx (Primary Dx); Localized Enlarged Lymph Nodes Social History Tobacco Use Types Packs/Day Years Used Date Smoking Tobacco: Unknown Nutrition Answer Date Recorded Nutrition: EVOO Fat Source Unknown 06/29 Nutrition: Servings of Fruits/Vegetables per Day Not on file 06/29/2020 Dental Answer Date Recorded Dental: Regular Dentist Unknown 06/30/19 21 Sex and Gender Information Value Date Recorded Sex Assigned at Male 03/01/2023 1:25 PM DRENCHER Gender Identity Male 03/01/2023 1:25 PM DRENCHER Sexual Orientation Not on file documented as of this encounter Plan of Treatment Upcoming Encounters Date Type Department Care Team (Late st Contact Info) Description 05/07/2023 8:00 AM DRENCHER Appointment Department of Radiation Oncology in [place], [place] [address] [place] [phone] Lauren Hernandez M.D. [address] [place] [phone] 05/07/2023 10:00 AM DRENCHER Virtual Visit Division of Endocrinology in [place], [place] [address] [place] [phone] Kendra Tinsley, PATRICE, C.N.P. [address] [place] [phone] 05/08/2023 8:00 AM DRENCHER Appointment Department of Radiation Oncology in [address] [phone] Lauren Hernandez M.D. [address] [place] [phone] 05/11/2023 8:15 AM DRENCHER Appointment Department of Radiation Oncology in [address] [phone] Lauren Hernandez M.D. [address] [place] [phone] Scheduled Referrals Name Type Priority Associated Diagnoses Order Schedule Otolaryngology Referral Outpatient Referral Routine Other Diseases Of Pharynx Localized Enlarged Lymph Nodes Expected: 02/17/2023 (Approximate), Expires: 05/20/2024 documented as of this encounter Visit Diagnoses Diagnosis Other Diseases Of Pharynx- Primary Localized Enlarged Lymph Nodes documented in this encounter
--- OUTSIDE RECORDS SUMMARY | 2023-05-06 10:50 | XMS_ITS | Continuity of Care Document ---
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 It does not include entries that were removed or entered in error. Problem Status Onset Date Problem Type Date of Resolution Comments Source foot pain (soft tissue) Inactive Condition foot pain (soft tissue): A: Left foot pain - Worse with running - Exam consistent with neuroma P: 1. X-ray 2. Orthotics 3. Follow up with MAJ Jeong/Ortho - Consider steroid injection DoD visit: ears/hearing exam for hearing conservation, treatment Inactive Condition DoD visit for: services physical pre-deployment Active Condition DoD assess patient condition work-related occupational disease Active Condition DoD hemorrhoids Active Condition Possible surgical intervention upon completion of antithrombolytic therapy, per PCM DoD no psychiatric diagnosis or condition on axis I Active Condition No menta l health concerns indicated. Assessments not indicated nor administered. Safety Plan not indicated. Goal is to heal physically and treatment plan is medically related to 's DVT treatment. SM reports being connected to [facility]. No follow up scheduled with [facility] home health care social worker at this time. This treatment plan communicated to [facility] patient case coordinator. See Behavioral Health Intake. Patient demonstrated understanding by verbalizing the treatment plan. Vocational Rehab paperwork completed. [facility] Resource List and Family Letter provided. [facility] lower back pain Active Condition PCM follow up PPD, continued Coumadin therapy for therapeutic range, left shoulder back pain, wt loss, B/P, smoking cessation; yearly check up for vision, hearing, dental, DM, HIV, PSA (2006), EKG, colon (f/u Q 3yrs) if indicated.Arrange Orthopedic, PT, Neur., Coumadin clinic if indicated. [facility] shoulder strain left Active Condition Will continue w ith a personal coach 4 x wk to strengthen left shoulder girdle. Report any detrimental s/s and report to CM and PCM regarding progress or digress. [facility] lumbago Active Condition color strainer is working with SM 4 x wk to increase Lumbar muscle and contra lateral muscle group strength. This has been cleared by his PCM on October 02 and SM reports satifaction with his progress. DoD psychiatric diagnosis or condition deferred on axis I Active Condition DoD visit for: issue repeat prescription Active Condition APPT MAD E FOR PT TO DISCUSS MEDICATION DOSAGE WITH . DoD visit for: administrative purpose Active Condition 1. LLE DVT. INR 6-2-8, hematology consult 7-2, pending u/s results. Coumadin 5mg qod f/u , cont. coumadin ? 6mo. ? Pos. lupus test repeat w/ u/s LLE prior2. LBP. PCM .Percocet 325mg 1-2 q4-6 hrs prn. Colace 100mg hs s/s reducing and controlled /10 pain. profile changed to no running.3. LT shoulder pain.s/s reducing and controlled.4. hemorrhoids grade 2. pending pcm f/u after d/c coumadin w/ probable surgical intervention. Approved by M.O. will drop INR and do surgeryCT lung normal Intensive case review after appointment. Cholesterol WNL, lupus test elevated . ICR after DoD conditions influencing health status Active Condition Schedule a 2nd ultrasound to track resolution of DVT, consider altering present RX regime based upon results. DoD assessment of patient condition work status Active Condition DoD thrombophlebitis of lower extremity deep vessels Inactive Condition No changes in R X regime for DVT. Will cont serial INR as scheduled and follow up with [employer] on October 02. DoD visit for: screening mental / developmental disorders Active Condition negative TBI screen DoD thrombophlebitis of popliteal vein left Active Condition Hematolo gist recommends cont of Coumadin x 3 months, serial INR and coag studies today, CXR and f/u in 2 wks. DoD visit for: services flight physical Inactive Condition visit for: services flight physical (AVIATION EXAMINATION): [employer] SM completing annual flight physical See [facility] for details: - [id number] History - [id number] Exam and Test Results . DoD Preventive Medicine New Patient Evaluation Adult 40-64 Years Inactive Condition DoD assessment of patient condition work-related Inactive Condition Ultrasound, CT scan with contrast with blood work confirm cholecystitis. KATHERINE admitted , surgery done [id number], appendectomy also performed during operation. KATHERINE was released same day and had convalence leave until [id number]. Civilian PCM medically cleared KATHERINE [id number]. KATHERINE arrived at [id number], housing set up and intake done today with CM. [facility], PCM interviewed KATHERINE and plan is to RTD status so KATHERINE can rejoin his unit in [facility]. 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 Presently, KATHERINE states his pain is 0 and takes no analegic. Intake completed by CM. DoD visit for: postsurgical exam Inactive Condition DoD post cholecystectomy Active Condition Doing well a t this time. 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 Told to F/u with the physician in [facility]. 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 Medication Details Route Status Patient Instructions Prescription Expires Prescription Number Last Dispense Date Ordering Provider Order Date Source ACYCLOVIR (ACYCLOVIR) , 400 MG, TABLET, ORAL, ZYDUS PHARMACEU, 100 ea. BOTTLE Active [id number] 2023 Pharmac y Data Transac tion Service Facilit y atorvastati n 10 mg oral tablet atorvast atin 10 mg oral tablet Start Date: 08/23/20 Status: Ordered Ordered No Facilit y Access finasteride 5 mg oral tablet finaster henry 5 mg oral tablet Start Date: 09/28/20 Status: Ordered Ordered No Facilit y Access HYDROCODONE -ACETAMINOP HEN (hydrocodon e bitartrate/ acetaminoph en), 5 MG-300MG, TABLET, ORAL, MALLINCKROD T PH, 500 ea. BOTTLE Cancele d [id number] : 2022 Pharmac y Data Transac tion Service Facilit y HYDROCODONE -ACETAMINOP HEN (HYDROCODON E/ACETAMINO PHEN), 5MG-325MG, TABLET, ORAL, MALLINCKROD T PH, 500 ea. BOTTLE Active [id number] 3 2022 Pharmac y Data Transac tion Service Facilit y HYDROCODONE -ACETAMINOP HEN (HYDROCODON E/ACETAMINO PHEN), 5MG-325MG, TABLET, ORAL, MALLINCKROD T PH, 500 ea. BOTTLE Active [id number] 3 2022 Pharmac y Data Transac tion Service Facilit y LIDOCAINE HCL VISCOUS (LIDOCAINE HCL), 20MG/ML, SOLUTION, MUCOUS MEM, [facility] 100 ml BOTTLE Cancele d [id number] : 2023 Pharmac y Data Transac tion Service Facilit y NALOXONE HCL (naloxone HCl), 4 MG, SPRAY, NASAL, TEVA [place], 2 ea. BLIST PACK Active 4 2023 Pharmac y Data Transac tion Service Facilit y rivaroxaban 15 mg-20 mg oral kit rivaroxa ban 15 mg-20 mg oral kit Start Date: 07/21/20 Status: Ordered Ordered No Facilit y Access rivaroxaban 20 mg oral tablet rivaroxa ban 20 mg oral tablet Start Date: 02/14/21 Status: Ordered Ordered No Facilit y Access XARELTO (RIVAROXABA N), 20 MG, TABLET, ORAL, AKSHAT [facility]., 90 ea. BOTTLE Active [id number] 3 2022 Pharmac y Data Transac tion Service Facilit y Allergies, Adverse Reactions, Alerts Combined list of allergies from Department of Defense and Veterans Affairs facilities. It does not include entries that were removed or entered in error. Substance Category Reaction Severity Reaction type Status Date Reported Comments Source No Known Allergies Drug allergy (disorder) active 01/07/2008 [facility] Immunizations Combined list of available immunizations from the Department of Defense and Veterans Affairs facilities. Immunization Series Date Given Administered By Site Reaction Lot Number CVX Code Drug Summer Internship Status Comments Source influenza, seasonal, injectable-pf [id number] [employer] [facility] ed influenza , seasonal, injectabl e-pf 01/09/17 Given Ambulat ory Pharmac y influenza, seasonal, injectable-pf [id number] Nov[employer]is [employer] complet ed influenza , seasonal, injectabl e-pf 01/09/17 Given Ambulat ory Pharmac y Influenza, seasonal, injectable, preservative free 1 2016 [id number] Nov[employer]is [employer] l [place]. (NOV) complet ed Influenza , seasonal, injectabl e, preservat yomi free DoD influenza, seasonal, injectable-pf 2015 [id number] [employer] complet ed influenza , seasonal, injectabl e-pf 01/26/16 Given Ambulat ory Pharmac y influenza, seasonal, injectable-pf 2015 [id number] [employer] complet ed influenza , seasonal, injectabl e-pf 01/26/16 Given Ambulat ory Pharmac y Influenza, seasonal, injectable, preservative free 1 2015 [id number] [employer] (SEQ) comple t ed Influenza , seasonal, injectabl e, preservat yomi free DoD varicella virus vaccine 2014 UNK 21 Unknown complet ed varicella virus vaccine 03/05/15 Given Ambulat ory Pharmac y varicella virus vaccine 2 2014 UNK 21 Unknown (UNK) comple t ed varicella virus vaccine DoD influenza, injectable, quadrivalent- pf 2014 [id number] 150 GlaxoSmithKli ne complet ed influenza , injectabl e, quadrival ent-pf 02/12/15 Given Ambulat ory Pharmac y influenza, injectable, quadrivalent- pf 2014 [id number] 150 GlaxoSmithKli ne complet ed influenza , injectabl e, quadrival ent-pf 02/12/15 Given Ambulat ory Pharmac y Influenza, injectable, quadrivalent, preservative free 1 2014 [id number] 150 [facility] (SKB) complet ed Influenza , injectabl e, quadrival ent, preservat yomi free DoD varicella virus vaccine 2014 [id number] Merck & Company Inc complet ed varicella virus vaccine 12/16/14 Given Ambulat ory Pharmac y varicella virus vaccine 2014 [id number] 21 Merck & Company Inc complet ed varicella virus vaccine 12/16/14 Given Ambulat ory Pharmac y varicella virus vaccine 1 2014 [id number] 21 Merck (MSD) complet ed varicella virus vaccine DoD anthrax vaccine 2014 [id number] 24 [employer] complet ed anthrax vaccine 06/04/14 Given Ambulat ory Pharmac y anthrax vaccine 2014 [id number] 24 [employer] complet ed anthrax vaccine 06/04/14 Given Ambulat ory Pharmac y anthrax vaccine 6 2014 [id number] 24 [employer] [place] ([facility]) complet ed anthrax vaccine DoD measles/mumps /rubella virus vaccine 2014 [id number] 03 Merck & Company Inc complet ed measles/m umps/rube lla virus vaccine 04/30/14 Given Ambulat ory Pharmac y measles/mumps /rubella virus vaccine 2014 [id number] 03 Merck & Company Inc complet ed measles/m umps/rube lla virus vaccine 04/30/14 Given Ambulat ory Pharmac y measles, mumps and rubella virus vaccine 2 2014 [id number] 03 Merck (MSD) complet ed measles, mumps and rubella virus vaccine DoD influenza, injectable, quadrivalent- pf 2013 [id number] 150 GlaxoSmithKli ne complet ed influenza , injectabl e, quadrival ent-pf 02/11/14 Given Ambulat ory Pharmac y influenza, injectable, quadrivalent- pf 2013 [id number] 150 GlaxoSmithKli ne complet ed influenza , injectabl e, quadrival ent-pf 02/11/14 Given Ambulat ory Pharmac y Influenza, injectable, quadrivalent, preservative free 1 2013 [id number] 150 [employer] (SKB) complet ed Influenza , injectabl e, quadrival ent, preservat yomi free DoD pneumococcal polysaccharid e, 23 valent 2013 [id number] 33 Merck & Company Inc complet ed pneumococ lyndsey polysacch aride, 23 valent 10/03/13 Given Ambulat ory Pharmac y typhoid Vi capsular polysaccharid e vac 2013 [id number] 101 [employer] complet ed typhoid Vi capsular polysacch aride vac 10/03/13 Given Ambulat ory Pharmac y anthrax vaccine 2013 [id number] 24 [employer] complet ed anthrax vaccine 10/03/13 Given Ambulat ory Pharmac y pneumococcal polysaccharid e, 23 valent 2013 [id number] 33 Merck & Company Inc complet ed pneumococ lyndsey polysacch aride, 23 valent 10/03/13 Given Ambulat ory Pharmac y anthrax vaccine 2013 [id number] 24 [employer] complet ed anthrax vaccine 10/03/13 Given Ambulat ory Pharmac y typhoid Vi capsular polysaccharid e vac 2013 [id number] 101 [employer] complet ed typhoid Vi capsular polysacch aride vac 10/03/13 Given Ambulat ory Pharmac y anthrax vaccine 5 2013 [id number] 24 [employer] [place] ([facility]) complet ed anthrax vaccine DoD pneumococcal polysaccharid e vaccine, 23 valent 1 2013 [id number] 33 Merck (MSD) complet ed pneumococ lydnsey polysacch aride vaccine, 23 valent DoD typhoid Vi capsular polysaccharid e vaccine 1 2013 [id number] 101 [employer] (AD) complet ed typhoid Vi capsular polysacch aride vaccine DoD Influenza, injectable, MDCK-pf 2012 [id number] 153 [employer] complet ed Influenza , injectabl e, MDCK-pf 02/19/13 Given Ambulat ory Pharmac y Influenza, injectable, MDCK-pf 2012 [id number] 153 [employer] complet ed Influenza , injectabl e, MDCK-pf 02/19/13 Given Ambulat ory Pharmac y Influenza, injectable, Madin [employer] Canine Kidney, preservative free 1 2012 [id number] 153 [employer] (CSL) complet ed Influenza , injectabl e, [employer]in [employer] Canine Kidney, preservat yomi free DoD tetanus, diphtheria, acellular pertu is 2012 [id number] 33A 115 Unknown complet ed tetanus, diphtheri a, acellular pertussis 07/31/12 Given Ambulat ory Pharmac y tetanus, diphtheria, acellular pertu is 2012 [id number] 33A 115 Unknown complet ed tetanus, diphtheri a, acellular pertussis 07/31/12 Given Ambulat ory Pharmac y tetanus toxoid, reduced diphtheria toxoid, and acellular pertu is vaccine, adsorbed 1 2012 [id number] 33A 115 Unknown (UNK) complet ed tetanus toxoid, reduced diphtheri a toxoid, and acellular pertussis vaccine, adsorbed DoD influenza, seasonal, injectable 2011 [id number] 1A 141 [employer] complet ed influenza , seasonal, injectabl e 01/17/12 Given Ambulat ory Pharmac y influenza, seasonal, injectable 2011 [id number] 1A 141 [employer] complet ed influenza , seasonal, injectabl e 01/17/12 Given Ambulat ory Pharmac y Influenza, seasonal, injectable 1 2011 [id number] 141 [facility] [employer] ([facility]) complet ed Influenza , seasonal, injectabl e DoD influenza, seasonal, injectable-pf 2010 [id number] 140 [employer] complet ed influenza , seasonal, injectabl e-pf 01/11/11 Given Ambulat ory Pharmac y influenza, seasonal, injectable-pf 2010 [id number] 140 [employer] complet ed influenza , seasonal, injectabl e-pf 01/11/11 Given Ambulat ory Pharmac y Influenza, seasonal, injectable, preservative free 1 2010 [id number] 140 [facility] [employer] ([facility]) complet ed Influenza , seasonal, injectabl e, preservat yomi free DoD influenza virus vaccine,split 2009 [id number] 15 Unknown complet ed influenza virus vaccine,s plit 03/09/10 Given Ambulat ory Pharmac y influenza virus vaccine,split 2009 [id number] 15 Unknown complet ed influenza virus vaccine,s plit 03/09/10 Given Ambulat ory Pharmac y influenza virus vaccine, split virus (incl. purified surface antigen)-reti red CODE 1 2009 [id number] 15 Unknown (UNK) comple t ed influenza virus vaccine, split virus (incl. purified surface antigen)- retired CODE DoD Novel influenza-H1N 1-09, all formul 2009 UNK 128 [employer] complet ed Novel influenza -X9A0-34, all formul 06/03/09 Given Ambulat ory Pharmac y Novel influenza-H1N 1-09, all formul 2009 UNK 128 [employer] complet ed Novel influenza -H0R2-68, all formul 06/03/09 Given Ambulat ory Pharmac y Novel influenza-H1N 1-09, all formulations 1 2009 UNK 128 [employer] (CSL) complet ed Novel influenza -D1H7-15, all formulati ons DoD influenza virus vaccine,split 2008 [id number] 1A 15 [employer] complet ed influenza virus vaccine,s plit 02/17/09 Given Ambulat ory Pharmac y influenza virus vaccine,split 2008 [id number] 1A 15 [employer] complet ed influenza virus vaccine,s plit 02/17/09 Given Ambulat ory Pharmac y influenza virus vaccine, split virus (incl. purified surface antigen)-reti red CODE 1 2008 [id number] 1A 15 [employer] (CSL) complet ed influenza virus vaccine, split virus (incl. purified surface antigen)- retired CODE DoD influenza virus vaccine,split 2007 UNK 15 [employer] complet ed influenza virus vaccine,s plit 02/25/08 Given Ambulat ory Pharmac y influenza virus vaccine,split 2007 UNK 15 [employer] complet ed influenza virus vaccine,s plit 02/25/08 Given Ambulat ory Pharmac y influenza virus vaccine, split virus (incl. purified surface antigen)-reti red CODE 1 2007 UNK 15 [employer] (AB) complet ed influenza virus vaccine, split virus (incl. purified surface antigen)- retired CODE [facility] tuberculin purified protein derivative 2007 [id number] 96 [facility] complet ed tuberculi n purified protein derivativ e 07/20/07 Given Ambulat ory Pharmac y influenza virus vaccine, live 2007 [id number] 111 [employer] comple t ed influenza virus vaccine, live 04/27/07 Given Ambulat ory Pharmac y anthrax vaccine 2007 [id number] [employer] complet ed anthrax vaccine 04/27/07 Given Ambulat ory Pharmac y influenza virus vaccine, live 2007 [id number] 111 [employer] comple t ed influenza virus vaccine, live 04/27/07 Given Ambulat ory Pharmac y anthrax vaccine 2007 [id number] 24 [employer] complet ed anthrax vaccine 04/27/07 Given Ambulat ory Pharmac y anthrax vaccine 4 2007 [id number] 24 [employer] [place] (MIP) complet ed anthrax vaccine DoD influenza virus vaccine, live, attenuated, for intranasal use 1 2007 [id number] 111 [employer] (MED) complet ed influenza virus vaccine, live, attenuate d, for intranasa l use DoD vaccinia (smallpox) vaccine 2006 [id number] 75 [facility] complet ed vaccinia (smallpox ) vaccine 10/12/06 Given Ambulat ory Pharmac y vaccinia (smallpox) vaccine 2006 [id number] 75 [facility] complet ed vaccinia (smallpox ) vaccine 10/12/06 Given Ambulat ory Pharmac y vaccinia (smallpox) vaccine 1 2006 [id number] 75 [facility] ([facility]AL) complet ed vaccinia (smallpox ) vaccine DoD anthrax vaccine 2006 [id number] 24 [employer] complet ed anthrax vaccine 08/31/06 Given Ambulat ory Pharmac y anthrax vaccine 2006 [id number] 24 [employer] complet ed anthrax vaccine 08/31/06 Given Ambulat ory Pharmac y anthrax vaccine 3 2006 [id number] 24 [employer] [place] (MIP) complet ed anthrax vaccine DoD anthrax vaccine 2006 [id number] 24 [employer] complet ed anthrax vaccine 08/04/06 Given Ambulat ory Pharmac y anthrax vaccine 2006 [id number] 24 [employer] complet ed anthrax vaccine 08/04/06 Given Ambulat ory Pharmac y anthrax vaccine 2 2006 [id number] 24 [employer] [place] (MIP) complet ed anthrax vaccine DoD typhoid Vi capsular polysaccharid e vac 2006 [id number] [employer] complet ed typhoid Vi capsular polysacch aride vac 07/17/06 Given Ambulat ory Pharmac y influenza virus vaccine, unspecified 2006 [id number] 88 Unknown complet ed influenza virus vaccine, unspecifi ed 07/17/06 Given Ambulat ory Pharmac y anthrax vaccine 2006 [id number] 24 [employer] complet ed anthrax vaccine 07/17/06 Given Ambulat ory Pharmac y typhoid Vi capsular polysaccharid e vac 2006 [id number] 101 [employer] complet ed typhoid Vi capsular polysacch aride vac 07/17/06 Given Ambulat ory Pharmac y influenza virus vaccine, unspecified 2006 [id number] 88 Unknown complet ed influenza virus vaccine, unspecifi ed 07/17/06 Given Ambulat ory Pharmac y anthrax vaccine 2006 [id number] 24 [employer] complet ed anthrax vaccine 07/17/06 Given Ambulat ory Pharmac y anthrax vaccine 1 2006 [id number] 24 [employer] [place] (MIP) complet ed anthrax vaccine DoD influenza virus vaccine, unspecified formulation 1 2006 [id number] 88 Unknown (UNK) complet ed influenza virus vaccine, unspecifi ed formulati on DoD typhoid Vi capsular polysaccharid e vaccine 1 2006 [id number] 101 [employer] (AVB) complet ed typhoid Vi capsular polysacch aride vaccine DoD tuberculin purified protein derivative 2006 [id number] [facility] complet ed tuberculi n purified protein derivativ e 07/15/06 Given Ambulat ory Pharmac y hepatitis A-hepatitis B vaccine 2005 [id number] 104 GlaxoSmithKli ne complet ed hepatitis A-hepatit is B vaccine 09/12/05 Given Ambulat ory Pharmac y tetanus-dipht h toxoids (Td) adult/adol 2005 [id number] 09 sanofi pasteur complet ed tetanus-d iphth toxoids (Td) adult/ado l 09/12/05 Given Ambulat ory Pharmac y hepatitis A-hepatitis B vaccine 2005 [id number] 104 GlaxoSmithKli ne complet ed hepatitis A-hepatit is B vaccine 09/12/05 Given Ambulat ory Pharmac y tetanus-dipht h toxoids (Td) adult/adol 2005 [id number] 09 sanofi pasteur complet ed tetanus-d iphth toxoids (Td) adult/ado l 09/12/05 Given Ambulat ory Pharmac y tetanus and diphtheria toxoids, adsorbed, preservative free, for adult use (2 Lf of tetanus toxoid and 2 Lf of diphtheria toxoid) 1 2005 [id number] 09 Sanofi Pasteur ([facility]) complet ed tetanus and diphtheri a toxoids, adsorbed, preservat yomi free, for adult use (2 Lf of tetanus toxoid and 2 Lf of diphtheri a toxoid) DoD hepatitis A and hepatitis B vaccine 3 2005 [id number] [facility] hepatitis A and hepatitis B vaccine DoD influenza virus vaccine,split 2005 [id number] 15 sanofi pasteur complet ed influenza virus vaccine,s plit 05/03/05 Given Ambulat ory Pharmac y influenza virus vaccine,split 2005 [id number] 15 sanofi pasteur complet ed influenza virus vaccine,s plit 05/03/05 Given Ambulat ory Pharmac y influenza virus vaccine, split virus (incl. purified surface antigen)-reti red CODE 1 2005 [id number] 15 Sanofi Pasteur ([facility]) complet ed influenza virus vaccine, split virus (incl. purified surface antigen)- retired CODE DoD hepatitis A-hepatitis B vaccine 2003 UNK 104 Unknown complet ed hepatitis A-hepatit is B vaccine 03/30/04 Given Ambulat ory Pharmac y hepatitis A-hepatitis B vaccine 2003 UNK 104 Unknown complet ed hepatitis A-hepatit is B vaccine 03/30/04 Given Ambulat ory Pharmac y hepatitis A and hepatitis B vaccine 2 2003 UNK 104 Unknown (UNK) comple t ed hepatitis A and hepatitis B vaccine DoD hepatitis A-hepatitis B vaccine 2003 UNK 104 Unknown complet ed hepatitis A-hepatit is B vaccine 12/03/03 Given Ambulat ory Pharmac y hepatitis A-hepatitis B vaccine 2003 UNK 104 Unknown complet ed hepatitis A-hepatit is B vaccine 12/03/03 Given Ambulat ory Pharmac y hepatitis A and hepatitis B vaccine 1 2003 UNK 104 Unknown (UNK) comple t ed hepatitis A and hepatitis B vaccine DoD yellow fever vaccine 1994 UNK 37 Unknown complet ed yellow fever vaccine 06/29/94 Given Ambulat ory Pharmac y poliovirus vaccine, inactivated 1994 UNK 10 Unknown complet ed polioviru s vaccine, inactivat ed 06/29/94 Given Ambulat ory Pharmac y yellow fever vaccine 1994 UNK 37 Unknown complet ed yellow fever vaccine 06/29/94 Given Ambulat ory Pharmac y poliovirus vaccine, inactivated 1994 UNK 10 Unknown complet ed polioviru s vaccine, inactivat ed 06/29/94 Given Ambulat ory Pharmac y poliovirus vaccine, inactivated 0 1994 UNK 10 Unknown (UNK) comple t ed polioviru s vaccine, inactivat ed DoD yellow fever vaccine 0 1994 UNK 37 Unknown (UNK) comple t ed yellow fever vaccine DoD typhoid Vi capsular polysaccharid e vac 1994 UNK 101 Unknown complet ed typhoid Vi capsular polysacch aride vac 05/23/94 Given Ambulat ory Pharmac y tetanus-dipht h toxoids (Td) adult/adol 1994 UNK 09 Unknown complet ed tetanus-d iphth toxoids (Td) adult/ado l 05/23/94 Given Ambulat ory Pharmac y measles/mumps /rubella virus vaccine 1994 UNK 03 Unknown complet ed measles/m umps/rube lla virus vaccine 05/23/94 Given Ambulat ory Pharmac y typhoid Vi capsular polysaccharid e vac 1994 UNK 101 Unknown complet ed typhoid Vi capsular polysacch aride vac 05/23/94 Given Ambulat ory Pharmac y tetanus-dipht h toxoids (Td) adult/adol 1994 UNK 09 Unknown complet ed tetanus-d iphth toxoids (Td) adult/ado l 05/23/94 Given Ambulat ory Pharmac y measles/mumps /rubella virus vaccine 1994 UNK 03 Unknown complet ed measles/m umps/rube lla virus vaccine 05/23/94 Given Ambulat ory Pharmac y measles, mumps and rubella virus vaccine 0 1994 UNK 03 Unknown (UNK) comple t ed measles, mumps and rubella virus vaccine DoD tetanus and diphtheria toxoids, adsorbed, preservative free, for adult use (2 Lf of tetanus toxoid and 2 Lf of diphtheria toxoid) 0 1994 UNK 09 Unknown (UNK) comple t ed tetanus and diphtheri a toxoids, adsorbed, preservat yomi free, for adult use (2 Lf of tetanus toxoid and 2 Lf of diphtheri a toxoid) DoD typhoid Vi capsular polysaccharid e vaccine 1 1994 UNK 101 Unknown (UNK) comple t ed typhoid Vi capsular polysacch aride vaccine DoD Vital Signs Combined list of inpatient and outpatient Vital Signs from Department of Defense and Veterans Affairs, ranging from 12 months to all on record, depending upon the facility. Vital Sign Value Date Comments Source No data available for this section Ambulatory Pharmacy Encounters Combined list of: 1) Encounters from Department of Veterans Affairs facilities going back up to thelast 18 months. 2) Encounters from the Department of Defense facilities going back up to 280 months. Location Location Details Encounter Type Encounter Number Reason For Visit Attending Provider ADM Date DC Date Status Disposition Source [place] OUTPATIENT [id number] KARSTEN CAST 08/19 Released w/o Limitations [facility] [place] OUTPATIENT [id number] follow up on gallbla esthela surgery DEV SILVA 12/07 Released w/o Limitations [facility] [place]) [place] [id number] Case Managem ent KAYLEEN ESPINO 12/07 Released w/o Limitations [facility] [place] [facility] OUTPATIENT [id number] 02/22 Released w/o Limitations [facility] OUTPATIENT [id number] 02/23 Released w/o Limitations [facility] OUTPATIENT [id number] 06/30 Admitted Theater Facilit y [facility] Internal Medicine) OUTPATIENT [id number] OIF/OEF PINKY RENEE 07/01 [facility]) OUTPATIENT [id number] TCC LUIS MAZARIEGOS 07/01 [facility] [place]agemen [facility]) OUTPATIENT [id number] Case Managem ent ELIO JOHN 07/05 Released w/o Limitations [facility] [place] Case Managem [facility]) [facility] [place]) OUTPATIENT [id number] MEDEVAC LORRAINE ISREAL 07/05 Released with Work/Duty Limitations [facility] [place]) [facility] [place] OUTPATIENT [id number] lab work LORRAINE ISREAL 07/06 Released with Work/Duty Limitations [facility] [place]) [facility] [place] TELE CONSULT [id number] LABS- PT/INR ISREAL PETERS 07/08 [facility] [place]) [facility] [place] Manag[facility] OUTPATIENT [id number] Case Managem ent MARIEL JOHNT L 07/13 Released w/o Limitations [facility] [place]agem [facility] [facility] [place] [id number] ISREAL PETERS 07/13 Released with Work/Duty Limitations [facility] [place] [facility] [place] OUTPATIENT [id number] FOLLOW UP/BLOO D WORK ISREAL PETERS 07/18 Released with Work/Duty Limitations [facility] [place]) [facility] [place]ag[facility]) OUTPATIENT [id number] Case Managem ent PINMARIEL TAYLORT L 07/20 Released w/o Limitations [facility] [place]) [facility] [place] TELE CONSULT [id number] BLOOD WORK TANK EMERY 07/22 [facility] [place]) [facility] [place]PATIENT [id number] FOLLOW UP/LABS ISREAL PETERS 07/25 Released with Work/Duty Limitations [facility] [place] [place] [id number] NO TBI-TBI SCREENI NG/TEST ING PROCESS MANDI HAND 07/27 Released w/o Limitations [facility] [place] [facility] [place] [place] [facility]agemen [facility]) OUTPATIENT [id number] Case Managem ent PINNIX, ELIO L 08/04 Released w/o Limitations [facility] [place] [place] [facility]agem [facility]) [facility] [place]) OUTPATIENT [id number] Labs ISREAL PETERS 08/12 Released with Work/Duty Limitations [facility] [place]) [facility] [place]LE CONSULT [id number] labwork orders JOSE RODRIGUEZ 08/15 [facility] [place] [place] [facility] [facility] [place] [place] [facility]ag[facility] OUTPATIENT [id number] Case Managem ent PINNIX, ELIO L 08/22 Released w/o Limitations [facility] [place] [place] [facility]agem [facility]) [facility] [place]ag[facility] OUTPATIENT [id number] Case Managem ent PINNIX, ELIO L 08/30 Released w/o Limitations [facility] [place] Managem [facility]) [facility] [place] OUTPATIENT [id number] MEDICAL INTAKE [facility] MELANIA OLIVER 09/13 Released with Work/Duty Limitations [facility] [place] [facility] [place] OUTPATIENT [id number] CM intake of [facility] YARELIS SYKES 09/13 Released with Work/Duty Limitations [facility] [place]) [facility] [place]) OUTPATIENT [id number] Telepho ne consult with PCM YARELIS SYKES 09/22 Released with Work/Duty Limitations [facility] [place] [facility] [place] [id number] Telepho ne confere marcellae YARELIS SYKES 10/03 Released with Work/Duty Limitations [facility] [place] [facility] [place] [id number] Weekly report YARELIS SYKES 10/07 Released with Work/Duty Limitations [facility] [place] [facility] [facility] [place] [facility] [id number] Phone confere nce with SM YARELIS SYKES 10/10 Released with Work/Duty Limitations [facility] [place] [facility] [facility] [place] [facility] [id number] S/P Hematol ogist appt YARELIS SYKES 10/11 Released with Work/Duty Limitations [facility] [place] [facility] [facility] [place] [facility] [id number] Initial case review with Chip Silo Tender YARELIS SYKES 10/14 Released with Work/Duty Limitations [facility] [place] [facility] [place] [id number] Weekly review YARELIS SYKES 10/21 Released with Work/Duty Limitations [facility] [place] [facility] [facility] [place] [facility] [id number] Change of CM YARELIS SYKES 11/02 Released with Work/Duty Limitations [facility] [place] [facility] [facility] [place] [facility] TELE CONSULT [id number] weekly CM progres s note. SALOME WALTON 11/10 [facility] [place] [facility] [facility] [place] [facility] [id number] Weekly CM progres s note SALOME WALTON 11/10 Released w/o Limitations [facility] [place] [facility] [facility] [place] [facility] [id number] Weekly CM progres s note SALOME WALTON 11/28 Released w/o Limitations [facility] [place] [facility] [facility] [place] [facility] [id number] Weekly CM progres s note. SALOME WALTON 12/02 Released w/o Limitations [facility] [place] [facility] [facility] [place] [facility] [id number] Weekly CM progres s note SALOME WALTON 12/06 Released w/o Limitations [facility] [place] [facility] [facility] [place] [place] [id number] Weekly cm progres s note SALOME WALTON 12/15 Released w/o Limitations [facility] [place] [facility] [facility] [place] [facility] [id number] Weekly CM progres s note. SALOME WALTON 12/23 Released w/o Limitations [facility] [place] [facility] [facility] [place] [facility] [id number] weekly CM progres s note. SALOME WALTON 01/06 Released w/o Limitations [facility] [place] [facility] [facility] [place] [facility] [id number] weekly cm progres s note SALOME WALTON 02/09 Released w/o Limitations [facility] [place] [facility] [facility] [place] [facility] [id number] Weekly CM progres s note SALOME WALTON 02/17 Released w/o Limitations [facility] [place] [facility] [facility] [place] [facility] [id number] case review for refrad SALOME WALTON 02/23 Released w/o Limitations [facility] [place] [place] OUTPATIENT [id number] Weekly CM progres s note SALOME WALTON 03/22 [place]ased [place]o Limitations [place] OUTPATIENT [id number] Weekly CM progres s note. SALOME WALTON 04/05 [place]ased [place]o Limitations [place] OUTPATIENT [id number] Weekly CM progres s note SALOME WALTON 04/19 [place]ased [place]/o Limitations [place] [employer] [facility] [employer] OUTPATIENT [id number] Notes Entered by: BRENNAN HENDRICKSON 03 Oct 2013 1108 ------- ------- ------- ------- -- BRENNAN Jimenez 10/03 Released w/o Limitations [place] [place] [facility] [place] [facility] [employer] [employer] OUTPATIENT [id number] Notes Entered by: Carmela CHAMPAGNE 03 Oct 2013 1156 ------- ------- ------- ------- -- GUI DUNHAM 10/03 [place]ased [place] Limitations [place] [place] [facility] [place] [facility] [employer] [facility] [id number] Notes Entered by: CARISSA HA 03 Oct 2013 1350 ------- ------- ------- ------- -- ELLEN LOPEZ 10/03 [place] Limitations [place] [place] Conservat [facility]) OUTPATIENT [id number] Notes Entered by: Rebekah CHONG 04 Oct 2013 0724 ------- ------- ------- ------- -- PRE SAMARA CHONG 10/04 Released [place]/o Limitations [place] Hearing Conserv [facility]ion) [facility] OUTPATIENT [id number] Theater Provider 01/07 Released w/o Limitations [facility] [place] Hearing Conservat ion) OUTPATIENT [id number] LUZ MARIA ALEMAN 08/21 [place]ased [place] [id number]) OUTPATIENT [id number] Notes Entered by: MARIA A HENDRICKS 22 Aug 2014 1353 ------- ------- ------- ------- -- CHITO Zimmerman 08/22 Released w/o Limitations [place] [id number]) [place] TELE CONSULT [id number] 5 Notes Entered by: ANIL BURCH 30 Jan 2020 0821 ------- ------- ------- ------- -- BARBARA Marcelo 01/29 [place]) Procedures Combined list of: 1) Procedures from Department of Veterans Affairs facilities going back up to thelast 18 months, not all VA non-surgical procedures are included; 2) All procedures from the Department of Defense facilities. Procedure Procedure Type Code Date Perfomer [facility] elda [facility] Testing Audiometry Group Testing [id number] SAMARA CHONG [facility] Testing Audiometry Group Testing 89209 014 ARTHUR WHITEHEAD [facility] Spectacles Services Fitting Bifocal Except For Aphakia Spectacles Services Fitting Bifocal Except For Aphakia 58585 014 ELLEN LAND THE PROCEDURES NEEDED TO ORDER GLASSES, TO INCLUDE ANATOMICAL MEASUREMENTS AND FRAME FITTING, WAS DONE ON THE DATE OF THE APPOINTMENT. DUE TO STAFFING ISSUES, THE ACTUAL GLASSES ORDER WAS SUBMITTED EITHER THE SAME DAY OR THE FOLLOWING WORK DAY. SEE SRTS FOR DETAILS. [facility] Screening Test Of Visual Acuity, Quantitative, Bilateral Screening Test Of Visual Acuity, Quantitative, Bilateral 26968 ELLEN LAND Anthrax Vaccine For Subcutaneous Or Intramuscular Use Anthrax Vaccine For Subcutaneous Or Intramuscular Use 39100 BRENNAN HENDRICKSON Pneumococcal Polysaccharide Vaccine 23 Valent Intramuscular Pneumococcal Polysaccharide Vaccine 23 Valent Intramuscular 99612 BRENNAN HENDRICKSON Immunization Administration By Injection, Each Additional Vaccine Immunization Administration By Injection, Each Additional Vaccine 94923 [facility] Typhoid Vaccine Vi Capsular Polysaccharide, For Intramus Use Typhoid Vaccine Vi Capsular Polysaccharide, For Intramus Use 04749 [facility] Immunization Administration By Injection, One Vaccine Immunization Administration By Injection, One Vaccine 34070 [facility] Venipuncture Venipuncture 75918 BRENNAN HENDRICKSON Case Management, each 15 minutes 008 ELIO JOHN [facility] Case Management, each 15 minutes 008 ELIO JOHN [facility] Case Management, each 15 minutes 008 ELIO JOHN Psychotherapy Individual Approximately 30 Minutes 008 MANDI HAND [facility] Case Management, each 15 minutes 008 ELIO JOHN [facility] Clinical Social Work Individual Outpatient Counseling 30 Minutes 008 CLAY DELANEY [facility] Case Management, each 15 minutes 008 ELIO JOHN Case Management, each 15 minutes 008 PINNIX, ELIO L DoD Case Management, each 15 minutes 007 KAYLEEN ESPINO DoD Patient education, not otherwise cla ified, non-physician provider, group, per se ion 007 KARSTEN NAZARIO DoD Ear Protector Attenuation Measurements Ear Protector Attenuation Measurements 75489 007 KARSTEN NAZARIO [facility] Testing Audiometry Group Testing 13353 007 KARSTEN NAZARIO AUDIOMETRIC TESTING OF GROUPS 015 DoD AUDIOMETRIC TESTING OF GROUPS 014 [facility] FITTING OF SPECTACLES, EXCEPT FOR APHAKIA; BIFOCAL 014 DoD ANTHRAX VACCINE, FOR SUBCUTANEOUS OR INTRAMUSCULAR USE 014 DoD CASE MANAGEMENT, EACH 15 MINUTES 008 DoD CASE MANAGEMENT, EACH 15 MINUTES 008 DoD CASE MANAGEMENT, EACH 15 MINUTES 008 DoD INDIVIDUAL PSYCHOTHERAPY, INSIGHT ORIENTED, BEHAVIOR MODIFYING AND/OR SUPPORTIVE, IN AN OFFICE OR OUTPATIENT FACILITY, APPROXIMATELY 20 TO 30 MINUTES [id number] WITH THE PATIENT 008 DoD CASE MANAGEMENT, EACH 15 MINUTES 008 DoD COLLECTION OF VENOUS BLOOD BY VENIPUNCTURE [facility] INDIVIDUAL PSYCHOTHERAPY, INSIGHT ORIENTED, BEHAVIOR MODIFYING AND/OR SUPPORTIVE, IN AN OFFICE OR OUTPATIENT FACILITY, APPROXIMATELY 20 TO 30 MINUTES [id number] WITH THE PATIENT 008 DoD CASE MANAGEMENT, EACH 15 MINUTES 008 DoD CASE MANAGEMENT, EACH 15 MINUTES 008 DoD CASE MANAGEMENT, EACH 15 MINUTES 007 DoD UNLISTED VACCINE/TOXOID 007 DoD ANTHRAX VACCINE, FOR SUBCUTANEOUS OR INTRAMUSCULAR USE 007 [facility] PATIENT EDUCATION, NOT OTHERWISE CLASSIFIED, NON-PHYSICIAN PROVIDER, GROUP, PER SESSION 007 DoD ANTHRAX VACCINE, FOR SUBCUTANEOUS OR INTRAMUSCULAR USE 007 [facility] SCREENING TEST OF VISUAL ACUITY, QUANTITATIVE, BILATERAL 007 [facility] COLLECTION OF VENOUS BLOOD BY VENIPUNCTURE 007 DoD No data available for this section Ambulato ry Pharmacy Social History Combined list of available smoking, tobacco, and other social history from Department of Defense and Veterans Affairs facilities. Social History Type Response Date Comment Sourc e This section is an empty social history section. DoD Assessment and Plan Combined list of future care activities from Department of Defense and Veterans Affairs facilities (e.g., assessment and plan notes, appointments, orders, and referrals). Additional future care activities may be listed in the Plan of Care section. Result Assessment and Plan Date Source Assessment and Plan No data available for this section 05/06/2023 Ambulatory Pharmacy Functional Status Combined list of recent functional and cognitive assessments recorded at Department of Defense and Veterans Affairs ([place] Functional [place] Measurement (FIM) Scale: 1 = Total Assistance (Subject = 0% +), 2 = Maximal Assistance (Subject = 25% +), 3 = Moderate Assistance (Subject = 50% +), 4 = Minimal Assistance (Subject = 75% +), 5 = Supervision, 6 = Modified [place] (Device), 7 = Complete [place] (Timely, Safely). Assessment Date/Time Source Assessment Type Assessment Skill Assessment Score Assessment Details No data available for this section
--- NOTE | 2023-05-06 14:00 | CRLHL7_ITS ---
For Patients: As a result of the Century Cures Act, medical imaging exams and procedure reports are released immediately into your electronic medical record. You may view this report before your referring provider. If you have questions, please contact your health care provider. INDICATION: Elevated liver enzymes. TECHNIQUE: Ultrasound abdomen limited. Sonographic images of the right upper quadrant were obtained using wolf-scale and color Doppler images. FINDINGS: Liver: Echogenic appearing. No masses. No intrahepatic biliary dilatation. Gallbladder: Absent. Common bile duct: 10 mm. Pancreas: Limited evaluation Right kidney: 10.9 cm. Normal echotexture and cortex. No masses, stones, or hydronephrosis. Vasculature: Limited evaluation IMPRESSION: 1. Enlarged liver with a span of 17.5 cc. Echogenicity of the parenchyma suggests fatty infiltration. 2. Surgically absent gallbladder. The common bile duct measurement is normal in a patient after gallbladder surgery. Dictated by Julian Oreilly MD @ 05/07/2023 10:35:08 AM (Electronically Signed)
== END 2023-05-06 10:40 | disposition home or self-care (01) ==
LOC: US 10:40
PROVIDERS: PCP Family Medicine; Visit Provider Internal Medicine Hematology & Oncology
DX: R74.01 Elevation of levels of liver transaminase levels (principal); R16.0 Hepatomegaly, not elsewhere classified
CPT/HCPCS: 76705

== ENCOUNTER 2023-05-07 10:46 | Outpatient (REF) | payer MEDICARE, OTHER, SELFPAY ==
--- OUTSIDE RECORDS SUMMARY | 2023-05-07 10:57 | XMS_ITS | Clinical Summary ---
Author Name Unknown Organization [facility] Address [address] [place] [address] Care Team Providers Care Sales Training Coordinator Name Role Phone Unavailable Primary Care Provider Unavailabl e Source Comments Patient records contain information from all sites at [facility]. For routine questions regarding patient records, call [phone] during business hours, M-F 8:00 AM - 5:00 PM Central Time. Record requests for emergency care only can be directed to [phone] at any time.[facility] Allergies No known active allergies Medications [...] Encounters Date Type Department Care Team Description 05/07/2023 10:00 AM TOOL MAKER Virtual Visit Division of Endocrinology in [place] [address] [place] [address] Kendra Tinsley APRN, C.N.P. Kelly Peter APRN, C.N.P., D.N.P. Malignant Neoplasm Of Tonsil (HCC); Dietary Counseling And Surveillance For Enteral Nutrition 05/07/2023 7:46 AM TOOL MAKER Hospital Encounter Department of Radiation Oncology in [address] [address] Lauren Hernandez M.D. 05/06/2023 7:52 AM TOOL MAKER Hospital Encounter Department of Radiation Oncology in [address] [address] Lauren Hernandez M.D. 05/05/2023 1:15 PM TOOL MAKER Hospital Encounter Department of Radiation Oncology in [address] [address] Lauren Hernandez M.D. 05/05/2023 1:00 PM TOOL MAKER - 05/05/2023 1:14 PM TOOL MAKER Hospital Encounter Department of Radiation Oncology in [address] [address] Lauren Hernandez M.D. Malignant Neoplasm Of Oropharynx (HCC) 05/05/2023 10:00 AM TOOL MAKER Clinical Support Division of Endocrinology in [place], [place] [address] [place] [phone] Lauren Hernandez M.D. Giesen, Samantha M, R.N. Malignant Neoplasm Of Tonsil (HCC) 05/05/2023 9:20 AM TOOL MAKER - 05/05/2023 10:57 AM TOOL MAKER Hospital Encounter Department of Radiology in [place], [place] [address] [place] [address] Kelly Peter APRN, C.N.P., D.N.P. Carlito Chaudhry M.D. Augustine, Matthew R, M.D. Gastrostomy Status (HCC) Discharge Disposition: Home or Self Care 05/05/2023 8:00 AM TOOL MAKER Clinical Support Department of Nutrition and Diabetes Education in [place], [place] [address] [place] [phone] Lauren Hernandez M.D. Epp, Lisa M, RDN, Oly Lopes, M.S., RDN, LD Gastrostomy Status (HCC) (Primary Dx); Malignant Neoplasm Of Tonsil (HCC) 05/05/2023 Documentation Division of General Internal Medicine in [address] [address] Kaylene Montoya Pharm.D., R.Ph. 05/04/2023 12:38 PM TOOL MAKER Anesthesia Event Department of Radiology in [address] [phone] Jayy Dimas, OIL DISPATCHER, ICER MACHINE, DNAP Michelet Adhikari OIL DISPATCHER, ICER MACHINE, DNAP 05/04/2023 10:57 AM TOOL MAKER - 05/04/2023 3:48 PM TOOL MAKER Hospital Encounter Department of Radiology in [address] [address] Lauren Hernandez M.D. Jundt, Michael C, M.D. Huls, Sean J, M.D. Malignant Neoplasm Of Tonsil (HCC) Discharge Disposition: Home or Self Care 05/04/2023 7:50 AM TOOL MAKER Hospital Encounter Department of Radiation Oncology in [address] [phone] Lauren Hernandez M.D. 05/01/2023 2:00 PM TOOL MAKER Comprehensive Visit Division of Endocrinology in [address] [address] Lauren Hernandez M.D. Hagenbrock, Martha C, APRN, C.N.PFco Dietary Counseling And Surveillance For Enteral Nutrition (Primary Dx); Malignant Neoplasm Of Tonsil (HCC) 05/01/2023 1:00 PM TOOL MAKER Clinical Support Division of Endocrinology in [address] [address] Lauren Hernandez M.D. Giesen, Samantha M, R.N. Malignant Neoplasm Of Tonsil (HCC) 05/01/2023 11:00 AM TOOL MAKER Clinical Support Department of Nutrition and Diabetes Education in [address] [address] Lauren Hernandez M.D. Olson, Danelle A, M.S., RDN, LD Malignant Neoplasm Of Oropharynx (HCC) (Primary Dx); Malignant Neoplasm Of Tonsil (HCC); Dysphagia Oropharyngeal Phase; Dietary Counseling And Surveillance For Enteral Nutrition; Gastrostomy Status (HCC) 05/01/2023 7:46 AM TOOL MAKER Hospital Encounter Department of Radiation Oncology in [address] [address] Lauren Hernandez M.D. 04/30/2023 7:50 AM TOOL MAKER Hospital Encounter Department of Radiation Oncology in [address] [address] Lauren Hernandez M.D. 04/30/2023 Clinical Communication Division of General Internal Medicine in [place], [place] [address] [place] [address] Jihan Rivas, RFcoNFco 04/30/2023 Clinical Communication Department of Radiation Oncology in [address] [address] Ramandeep Sanz, RJurgen 04/29/2023 7:47 AM [facility] - 04/29/2023 12:51 PM TOOL MAKER Hospital Encounter Department of Radiation Oncology in [address] [address] Lauren Hernandez M.D. Malignant Neoplasm Of Tonsil (HCC) (Primary Dx); Malignant Neoplasm Of Oropharynx (HCC) 04/29/2023 7:47 AM [facility] Hospital Encounter Department of Radiation Oncology in [address] [address] Lauren Hernandez M.D. 04/29/2023 Clinical Communication Department of Radiology in [place], [place] [address] [place] [address] Tony Lujan, R.N. Procedure (G tube placement) 04/29/2023 Documentation Division of General Internal Medicine in [place], [place] [address] [place] [address] Jihan Rivas R.N. Scheduling 04/29/2023 Clinical Communication Division of Endocrinology in [place], [place] [address] [place] [address] Provider, Unknown 04/28/2023 7:53 AM TOOL MAKER Hospital Encounter Department of Radiation Oncology in [address] [address] Lauren Hernandez M.D. 04/24/2023 7:54 AM TOOL MAKER Hospital Encounter Department of Radiation Oncology in [address] [address] Lauren Hernandez M.D. 04/23/2023 2:48 PM TOOL MAKER Hospital Encounter Department of Radiation Oncology in [address] [address] Lauren Hernandez M.D. 04/23/2023 8:09 AM TOOL MAKER Hospital Encounter Department of Radiation Oncology in [address] [address] Ashlee Go APRN, C.N.P., D.N.PPoly Mcginnis, NIDA Malignant Neoplasm Of Oropharynx (HCC) 04/23/2023 7:47 AM TOOL MAKER Hospital Encounter Department of Radiation Oncology in [address] [address] Lauren Hernandez M.D. 04/22/2023 7:49 AM TOOL MAKER - 04/22/2023 9:25 AM TOOL MAKER Hospital Encounter Department of Radiation Oncology in [address] [address] Lauren Hernandez M.D. Leenstra, James L, M.D. Malignant Neoplasm Of Oropharynx (HCC) 04/22/2023 7:49 AM TOOL MAKER Hospital Encounter Department of Radiation Oncology in [address] [address] Lauren Hernandez M.D. 04/21/2023 8:36 AM TOOL MAKER Hospital Encounter Department of Radiation Oncology in [address] [address] Lauren Hernandez M.D. 04/17/2023 8:18 AM TOOL MAKER Hospital Encounter Department of Radiation Oncology in [address] [address] Lauren Hernandez M.D. 04/17/2023 Orders Only Department of Radiation Oncology in [address] [address] Lauren Hernandez M.D. 04/16/2023 8:16 AM TOOL MAKER Hospital Encounter Department of Radiation Oncology in [address] [address] Lauren Hernandez M.D. 04/15/2023 8:32 AM TOOL MAKER Hospital Encounter Department of Radiation Oncology in [address] [address] Lauren Hernandez M.D. 04/15/2023 8:20 AM [facility] - 04/15/2023 8:31 AM TOOL MAKER Hospital Encounter Department of Radiation Oncology in [address] [address] Lauren Hernandez M.D. Malignant Neoplasm Of Oropharynx (HCC) 04/14/2023 8:26 AM TOOL MAKER Hospital Encounter Department of Radiation Oncology in [address] [address] Lauren Hernandez M.D. 04/14/2023 Clinical Communication Department of Radiation Oncology in [address] [address] Lauren Hernandez M.D. 04/13/2023 9:12 AM TOOL MAKER Hospital Encounter Department of Radiation Oncology in [address] [address] Lauren Hernandez M.D. 04/10/2023 8:45 AM TOOL MAKER Hospital Encounter Department of Radiation Oncology in [address] [address] Lauren Hernandez M.D. 04/09/2023 8:03 AM TOOL MAKER Hospital Encounter Department of Radiation Oncology in [address] [address] Ashlee Go APRN, C.N.P., D.N.PPoly Mcginnis LD Malignant Neoplasm Of Oropharynx (HCC) 04/09/2023 8:02 AM TOOL MAKER Hospital Encounter Department of Radiation Oncology in [address] [address] Lauren Hernandez M.D. 04/08/2023 8:01 AM TOOL MAKER Hospital Encounter Department of Radiation Oncology in [address] [address] Lauren Hernandez M.D. 04/07/2023 7:51 AM TOOL MAKER - 04/07/2023 3:25 PM TOOL MAKER Hospital Encounter Department of Radiation Oncology in [address] [address] Lauren Hernandez M.D. Malignant Neoplasm Of Oropharynx (HCC) 04/07/2023 7:50 AM TOOL MAKER Hospital Encounter Department of Radiation Oncology in [address] [address] Lauren Hernandez M.D. 04/06/2023 11:37 AM TOOL MAKER - 04/06/2023 11:59 PM TOOL MAKER Hospital Encounter Department of Radiation Oncology in [address] [address] Lauren Hernandez M.D. Discharge Disposition: Home or Self Care 04/03/2023 9:53 AM TOOL MAKER - 04/03/2023 11:57 AM TOOL MAKER Hospital Encounter Department of Radiation Oncology in [address] [address] Lauren Hernandez M.D. Grieman, Kari A, R.N. Malignant Neoplasm Of Oropharynx (HCC) Discharge Disposition: Home or Self Care 04/03/2023 9:53 AM TOOL MAKER - 04/03/2023 11:59 PM TOOL MAKER Hospital Encounter Department of Radiation Oncology in [address] [address] Lauren Hernandez M.D. Discharge Disposition: Home or Self Care 04/02/2023 7:49 AM TOOL MAKER - 04/02/2023 3:59 PM TOOL MAKER Hospital Encounter Department of Radiation Oncology in [address] [address] Lauren Hernandez M.D. Malignant Neoplasm Of Oropharynx (HCC) 04/02/2023 7:49 AM TOOL MAKER - 04/02/2023 11:59 PM TOOL MAKER Hospital Encounter Department of Radiation Oncology in [address] [address] Lauren Hernandez M.D. Discharge Disposition: Home or Self Care 04/01/2023 7:47 AM TOOL MAKER - 04/01/2023 11:59 PM TOOL MAKER Hospital Encounter Department of Radiation Oncology in [address] [address] Lauren Hernandez M.D. Discharge Disposition: Home or Self Care 03/31/2023 7:50 AM TOOL MAKER - 03/31/2023 11:59 PM TOOL MAKER Hospital Encounter Department of Radiation Oncology in [address] [address] Lauren Hernandez M.D. Discharge Disposition: Home or Self Care 03/30/2023 7:46 AM TOOL MAKER - 03/30/2023 11:59 PM TOOL MAKER Hospital Encounter Department of Radiation Oncology in [address] [address] Lauren Hernandez M.D. Discharge Disposition: Home or Self Care 03/27/2023 8:04 AM TOOL MAKER - 03/27/2023 11:59 PM TOOL MAKER Hospital Encounter Department of Radiation Oncology in [address] [address] Lauren Hernandez M.D. Discharge Disposition: Home or Self Care 03/26/2023 8:26 AM TOOL MAKER - 03/26/2023 11:59 PM TOOL MAKER Hospital Encounter Department of Radiation Oncology in [address] [address] Ashlee Go APRN, C.N.P., D.N.P. Yolis Eric, RDN Malignant Neoplasm Of Oropharynx (HCC) Discharge Disposition: Home or Self Care 03/26/2023 8:25 AM TOOL MAKER Hospital Encounter Department of Radiation Oncology in [address] [address] Lauren Hernandez M.D. Malignant Neoplasm Of Tonsil (HCC) (Primary Dx); Malignant Neoplasm Of Oropharynx (HCC) 03/26/2023 8:24 AM TOOL MAKER Hospital Encounter Department of Radiation Oncology in [address] [address] Lauren Hernandez M.D. Discharge Disposition: Home or Self Care 03/25/2023 9:26 AM TOOL MAKER - 03/25/2023 11:59 PM TOOL MAKER Hospital Encounter Department of Radiation Oncology in [address] [address] Lauren Hernandez M.D. Discharge Disposition: Home or Self Care 03/24/2023 8:12 AM TOOL MAKER - 03/24/2023 11:59 PM TOOL MAKER Hospital Encounter Department of Radiation Oncology in [address] [address] Lauren Hernandez M.D. Discharge Disposition: Home or Self Care 03/23/2023 3:05 PM TOOL MAKER - 03/23/2023 11:59 PM TOOL MAKER Hospital Encounter Department of Radiation Oncology in [address] [address] Lauren Hernandez M.D. Discharge Disposition: Home or Self Care 03/13/2023 2:07 PM TOOL MAKER - 03/14/2023 6:30 AM TOOL MAKER Hospital Encounter Department of Radiation Oncology in [address] [address] Lauren Hernandez M.D. Malignant Neoplasm Of Oropharynx (HCC) 03/13/2023 2:00 PM TOOL MAKER - 03/13/2023 2:06 PM TOOL MAKER Hospital Encounter Department of Radiation Oncology in [address] [address] Lauren Hernandez M.D. Grieman, Kari A, RFcoNFco Malignant Neoplasm Of Tonsil (HCC) (Primary Dx) 03/13/2023 12:20 PM TOOL MAKER - 03/13/2023 1:59 PM TOOL MAKER Hospital Encounter Department of Radiation Oncology in [address] [address] Lauren Hernandez M.D. Malignant Neoplasm Of Tonsil (HCC) (Primary Dx); Malignant Neoplasm Of Oropharynx (HCC); Secondary Malignant Neoplasm Lymph Node Neck (HCC) 03/13/2023 11:30 AM TOOL MAKER Clinical Support Department of Dental Specialties in [address] [address] Joe Moseley B.D.SFco Malignant Neoplasm Of Oropharynx (HCC) (Primary Dx); Malignant Neoplasm Of Tonsil (HCC); Secondary Malignant Neoplasm Lymph Node (HCC) 03/13/2023 Clinical Communication Department of Dental Specialties in [place], [place] [address] [place] [address] Joe Moseley B.D.S. 03/12/2023 Orders Only Department of Radiation Oncology in [place], [place] [address] [place] [address] Leesa Zamora Malignant Neoplasm Of Oropharynx (HCC) (Primary Dx) 03/12/2023 Orders Only Department of Radiation Oncology in [place], [place] [address] [place] [address] Terri Crowe P.A.-C., M.S. Malignant Neoplasm Of Oropharynx (HCC) (Primary Dx) 03/12/2023 Orders Only Department of Radiation Oncology in [place], [place] [address] [place] [address] Ashlee Go APRN, C.N.P., D.N.P. Malignant Neoplasm Of Oropharynx (HCC) (Primary Dx) 03/12/2023 Orders Only Department of Oncology in [place], [place] [address] [place] [address] Ana Quinonez RJurgen Malignant Neoplasm Of Oropharynx (HCC) (Primary Dx) 03/10/2023 4:00 PM TOOL MAKER Comprehensive Visit Department of Dental Specialties in [place], [place] [address] [place] [address] Joe Moseley B.D.S. Malignant Neoplasm Of Oropharynx (HCC); Secondary Malignant Neoplasm Lymph Node (HCC) 03/10/2023 Orders Only Department of Oncology in [place], [place] [address] [place] [address] Ana Quinonez RJurgen Malignant Neoplasm Of Oropharynx (HCC) (Primary Dx) 03/09/2023 1:30 PM TOOL MAKER Office Visit Department of Otorhinolaryngology in [place], [place] [address] [place] [address] David Soto M.D. Malignant Neoplasm Of Tonsil (HCC) (Primary Dx); Secondary Malignant Neoplasm Lymph Node (HCC) 03/09/2023 10:34 AM TOOL MAKER - 03/09/2023 11:59 PM TOOL MAKER Hospital Encounter Department of Radiology, [facility], in [address] [address] David Soto M.D. Riggs, Mallory L, MFcoSFco, [facility] [employer] Malignant Neoplasm Of Oropharynx (HCC); Secondary Malignant Neoplasm Lymph Node (HCC) Discharge Disposition: Home or Self Care 03/09/2023 10:30 AM TOOL MAKER Comprehensive Visit Department of Neurology in [address] [address] David Soto M.D. Riggs, Mallory L, M.S., [facility] [employer] Dysphagia Oropharyngeal Phase (Primary Dx); Malignant Neoplasm Of Oropharynx (HCC); Secondary Malignant Neoplasm Lymph Node (HCC) 03/09/2023 Orders Only Department of Radiation Oncology in [address] [address] Brandon Yeboah Mass Tonsil (Primary Dx) 03/05/2023 12:18 PM TOOL MAKER - 03/05/2023 1:35 PM TOOL MAKER Hospital Encounter Department of Radiation Oncology in [address] [address] Parvez Byrd M.D. Malignant Neoplasm Of Tonsil (HCC) (Primary Dx); Mass Tonsil; Mass Neck 03/05/2023 10:55 AM TOOL MAKER Ancillary Procedure Department of Otorhinolaryngology 03/05/2023 9:45 AM TOOL MAKER Comprehensive Visit Department of Otorhinolaryngology in [address] [address] David Soto M.D. Malignant Neoplasm Of Oropharynx (HCC); Secondary Malignant Neoplasm Lymph Node (HCC) 03/05/2023 8:10 AM TOOL MAKER - 03/06/2023 11:34 AM TOOL MAKER Hospital Encounter Department of Radiology, [facility], in [address] [address] David Soto M.D. Mass Neck; Mass Tonsil Discharge Disposition: Home or Self Care 03/02/2023 5:54 AM TOOL MAKER - 03/02/2023 11:59 PM TOOL MAKER Hospital Encounter Department of Radiology, [facility], in [place], [place] [address] [place] [phone] David Soto M.D. Mass Neck; Mass Tonsil Discharge Disposition: Home or Self Care 02/27/2023 10:00 AM CDT Clinical Communication Virtual Review in [place], [place] [address] [place] [address] Previsit Preparation 02/26/2023 10:06 AM CDT - 02/26/2023 11:59 PM CDT Hospital Encounter Department of Radiology, [facility], in [place], [place] [address] [place] [phone] David Soto M.D. Mass Neck; Mass Tonsil Discharge Disposition: Home or Self Care 02/25/2023 Clinical Communication Department of Otorhinolaryngology in [place], [place] [address] [place] [phone] David Soto M.D. OSM Request 02/24/2023 Orders Only Department of Otorhinolaryngology in [place], [place] [address] [place] [phone] Marlyn Santillan RFcoNFco Mass Tonsil (Primary Dx); Mass Neck 02/23/2023 Clinical Communication Department of Otorhinolaryngology in [address] [address] Prescheduling, Provider Appt Question 02/23/2023 Clinical Communication Department of Otorhinolaryngology in [place], [place] [address] [place] [phone] Prescheduling, Provider Referral 02/20/2023 Clinical Communication Department of Otorhinolaryngology in [place], [place] [address] [place] [phone] Prescheduling, Provider Referral 02/18/2023 Orders Only Department of Otorhinolaryngology in [place], [place] [address] [place] [phone] Marlyn Santillan R.N. Mass Neck (Primary Dx); Mass Tonsil 02/17/2023 [facility] [address] [place] [address] Toi Yap M.D. Other Diseases Of Pharynx [...] your living situation today? I have a [facility] place to live 03/01/2023 Sex and Gender Information Value Date Recorded Sex Assigned at Male 03/01/2023 1:25 PM TOOL MAKER Gender Identity Male 03/01/2023 1:25 PM TOOL MAKER Sexual Orientation Not on file Last Filed Vital Signs Vital Sign Reading Time Taken Comments Blood Pressure 130/74 05/05/2023 2:38 PM TOOL MAKER Pulse 71 05/05/2023 2:38 PM TOOL MAKER Temperature 36.5 ??C (97.7 ??F) 05/05/2023 2:38 PM CS T Respiratory Rate 18 05/05/2023 10:46 AM TOOL MAKER Oxygen Saturation 96% 05/05/2023 10:46 AM TOOL MAKER Inhaled Oxygen Concentration - - Weight 108 kg (237 lb 10.5 oz) 05/05/2023 2:38 P M TOOL MAKER Height 170.4 cm (5' 7.09) 05/05/2023 7:52 AM CS T Body Mass Index 37.13 05/05/2023 7:52 AM TOOL MAKER Plan of Treatment Upcoming Encounters Date Type Department Care Team (Late st Contact Info) Description 05/08/2023 8:00 AM TOOL MAKER Appointment Department of Radiation Oncology in [address] [address] Lauren Hernandez M.D. [address] [place] [address] 05/11/2023 8:15 AM TOOL MAKER Appointment Department of Radiation Oncology in [address] [phone] Lauren Hernandez M.D. [address] [place] [address] Health Maintenance Due Date Last Done Comments [...] Procedure Name Priority Date/Time Associated Diagnosis Comments [facility] DAILY TREATMENT INFORMATION Routine 05/07/2023 7:59 AM TOOL MAKER OUTSIDE US BODY Routine 05/06/2023 10:50 AM TOOL MAKER [facility] DAILY TREATMENT INFORMATION Routine 05/06/2023 8:12 AM TOOL MAKER [facility] DAILY TREATMENT INFORMATION Routine 05/05/2023 2:31 PM TOOL MAKER IR GASTROSTOMY TUBE CHECK RAD - Routine (most inpatients and all outpatients) 05/05/2023 10:36 AM TOOL MAKER Gastrostomy Status (HCC) IR GASTROSTOMY TUBE PLACEMENT RAD - Routine (most inpatients and all outpatients) 05/04/2023 1:35 PM TOOL MAKER Malignant Neoplasm Of Tonsil (HCC) ECG STAT 05/04/2023 11:34 AM TOOL MAKER PHOSPHORUS (INORGANIC), S Routine 05/04/2023 9:38 AM TOOL MAKER Malignant Neoplasm Of Tonsil (HCC) Dietary Counseling And Surveillance For Enteral Nutrition MAGNESIUM, S Routine 05/04/2023 9:38 AM TOOL MAKER Malignant Neoplasm Of Tonsil (HCC) Dietary Counseling And Surveillance For Enteral Nutrition BASIC METABOLIC PANEL, S/P Routine 05/04/2023 9:38 AM TOOL MAKER Malignant Neoplasm Of Tonsil (HCC) Dietary Counseling And Surveillance For Enteral Nutrition ARIA DAILY TREATMENT INFORMATION Routine 05/04/2023 8:06 AM TOOL MAKER [facility] DAILY TREATMENT INFORMATION Routine 05/01/2023 8:12 AM TOOL MAKER ARIA DAILY TREATMENT INFORMATION Routine 04/30/2023 8:05 AM TOOL MAKER ARIA DAILY TREATMENT INFORMATION Routine 04/29/2023 8:22 AM TOOL MAKER ARIA DAILY TREATMENT INFORMATION Routine 04/28/2023 8:14 AM TOOL MAKER ARI[facility] DAILY TREATMENT INFORMATION Routine 04/24/2023 8:06 AM TOOL MAKER ARI[facility] DAILY TREATMENT INFORMATION Routine 04/23/2023 3:06 PM TOOL MAKER ARI[facility] DAILY TREATMENT INFORMATION Routine 04/23/2023 8:07 AM TOOL MAKER [facility] DAILY TREATMENT INFORMATION Routine 04/22/2023 8:15 AM TOOL MAKER [facility] DAILY TREATMENT INFORMATION Routine 04/21/2023 9:10 AM TOOL MAKER ARIA DAILY TREATMENT INFORMATION Routine 04/17/2023 8:52 AM TOOL MAKER ARIA DAILY TREATMENT INFORMATION Routine 04/16/2023 8:56 AM TOOL MAKER ARIA DAILY TREATMENT INFORMATION Routine 04/15/2023 8:44 AM TOOL MAKER ARIA DAILY TREATMENT INFORMATION Routine 04/14/2023 8:43 AM TOOL MAKER ARIA DAILY TREATMENT INFORMATION Routine 04/13/2023 9:22 AM TOOL MAKER ARIA DAILY TREATMENT INFORMATION Routine 04/10/2023 9:08 AM TOOL MAKER ARIA DAILY TREATMENT INFORMATION Routine 04/09/2023 8:46 AM TOOL MAKER ARIA DAILY TREATMENT INFORMATION Routine 04/08/2023 8:18 AM TOOL MAKER ARIA DAILY TREATMENT INFORMATION Routine 04/07/2023 8:19 AM TOOL MAKER ARIA DAILY TREATMENT INFORMATION Routine 04/06/2023 12:07 PM TOOL MAKER ARIA DAILY TREATMENT INFORMATION Routine 04/03/2023 10:37 AM TOOL MAKER ARIA DAILY TREATMENT INFORMATION Routine 04/02/2023 8:28 AM TOOL MAKER ARIA DAILY TREATMENT INFORMATION Routine 04/01/2023 8:07 AM TOOL MAKER ARIA DAILY TREATMENT INFORMATION Routine 03/31/2023 8:33 AM TOOL MAKER ARIA DAILY TREATMENT INFORMATION Routine 03/30/2023 8:15 AM TOOL MAKER ARIA DAILY TREATMENT INFORMATION Routine 03/27/2023 8:47 AM TOOL MAKER ARIA DAILY TREATMENT INFORMATION Routine 03/26/2023 8:52 AM TOOL MAKER ARIA DAILY TREATMENT INFORMATION Routine 03/25/2023 9:57 AM TOOL MAKER ARIA DAILY TREATMENT INFORMATION Routine 03/24/2023 8:46 AM TOOL MAKER ARIA DAILY TREATMENT INFORMATION Routine 03/23/2023 3:29 PM TOOL MAKER INITIAL RAD ONC TREATMENT PLANNING CT SIMULATION Routine 03/13/2023 2:15 PM TOOL MAKER Malignant Neoplasm Of Oropharynx (HCC) MA FLUORIDE APPL TRAYS UPPER & LOWER Routine 03/13/2023 11:30 AM TOOL MAKER Malignant Neoplasm Of Oropharynx (HCC) 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) DENTAL LAB Routine 03/11/2023 MEDICAL PANOREX Routine 03/10/2023 5:56 PM TOOL MAKER 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) FL SWALLOW FUNCTION WITH VIDEO AND SPEECH OR OT FOR RST RAD - Routine (most inpatients and all outpatients) 03/09/2023 10:50 AM TOOL MAKER 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) OTORHINOLARYNGOLOGY IMAGE EXAM Routine 03/05/2023 10:11 AM TOOL MAKER US LYMPH NODE BIOPSY RAD - Routine (most inpatients and all outpatients) 03/05/2023 8:46 AM TOOL MAKER Mass Neck Mass Tonsil CYTOLOGY FINE NEEDLE ASPIRATION (INCLUDES CORE BIOPSIES Timed 03/05/2023 8:26 AM TOOL MAKER MAGNESIUM, S Routine 03/02/2023 8:11 AM TOOL MAKER Mass Tonsil Mass Neck CBC WITH DIFFERENTIAL, B Routine 023 8:11 AM TOOL MAKER Mass Tonsil Mass Neck BILIRUBIN DIRECT, S/P Routine 03/02/2023 8:11 AM TOOL MAKER [place] COMPREHENSIVE METABOLIC PANEL, S/P Routine 03/02/2023 8:11 AM TOOL MAKER [place] PET CT SKULL TO THIGH RAD - Routine (most inpatients and all outpatients) 03/02/2023 8:00 AM TOOL MAKER [place] US THYROID RAD - Routine (most inpatients and all outpatients) 02/26/2023 11:20 AM CDT [place] OUTSIDE CT NEURO Routine 02/12/2023 8:40 AM CDT from Last 3 Months Results * Aria Daily Treatment Information (05/07/2023 7:59 AM TOOL MAKER) Only the most recent of33 resultswithin the time period is included. Course ID [id number] LÓPEZ ARIA Course Start Date 3 12:01 TOOL MAKER LÓPEZ ARIA First Treatment Date 3 15:24 TOOL MAKER LÓPEZ ARIA Last Treatment Date 4 07:59 TOOL MAKER LÓPEZ ARIA Treatment Elapsed Days 45 LÓPEZ ARIA Reference Point [id number] LÓPEZ ARIA Dosage Given to Date cGy 6600 LÓPEZ ARIA Session Dosage Given 200 LÓPEZ ARIA Plan ID [id number] LÓPEZ ARIA Fractions Treated to Date 33 LÓPEZ ARIA Planned Total Fractions 35 LÓPEZ ARIA Prescribed Dose Per Fraction 200 LÓPEZ ARIA Prescription Dose in cGy 7000 LÓPEZ ARIA Plan Primary Reference Point [id number] LÓPEZ ARIA 05/07/2023 7:59 AM TOOL MAKER Provider Not In System RADIATION ONCOLOG Y ORDERABLES RENE LUQUE na * US abdomen limited-Outside US Body (05/06/2023 10:50 AM TOOL MAKER) 05/06/2023 10:5 0 AM TOOL MAKER Narrative IIMS - 05/06/2023 11:49 AM TOOL MAKER This order has been created and auto-finalized to support the import of outside images. If available, original interpretation can be found on the Media Tab in Chart Review, in Document Viewer, or as an image in QREADS. If a re-interpretation or overread is required please follow defined workflow. ?? Provider Not In System IMG US PROCEDURES IIMS NA * IR Gastrostomy Tube Check (05/05/2023 10:36 AM TOOL MAKER) Anatomical Region Laterality Modality Abdomen, Vascular Interventi onal RST LOS, Vascular Interventional FLA LOS N/A X-Ray Angiography Impressions 05/05/2023 11:03 AM TOOL MAKER Appropriate position and function of the 16 [place] Citizen gastrostomy tube placed yesterday. No leakage of contrast into the peritoneal cavity. No definitive fluoroscopic explanation for the patient's abdominal pain. EP Narrative 05/05/2023 11:03 AM TOOL MAKER EXAM: IR GASTROSTOMY TUBE CHECK CLINICAL HISTORY: 68-year-old male with abdominal pain after G-tube placement yesterday. Presents for G-tube check. TECHNIQUE: The patient was positioned supine on the fluoroscopy table. Coding Director image of the abdomen demonstrates contrast in [...] patient was positioned supine on the fluoroscopy table.Coding Director image of the abdomen demonstrates contrast in [...] Appropriate position and function of the 16 [place] Citizen gastrostomy tube placedyesterday. No leakage of contrast into the peritoneal cavity. Nodefinitive fluoroscopic explanation for the patient's abdominal pain. EP Kelly C Rome IBRAHIM, C.N.P., D.N.P. IMG I R PROCEDURES * IR Gastrostomy Tube Placement (05/04/2023 1:35 PM TOOL MAKER) Anatomical Region Laterality Modality Abdomen, Vascular Interventi onal RST LOS, Vascular Interventional ARZ LOS, Vascular Interventional FLA LOS N/A X-Ray Angiography Impressions 05/04/2023 2:06 PM TOOL MAKER Placement of a 16 [place] percutaneous gastrostomy tube. Nothing by mouth or tube for 2 hours (strict). Then use of mouth or tube for water, medications, and/or tube feeds per Nutrition note/order. Exchange tube in 3-5 months. Contact the [facility] clinic at [phone] to schedule the tube exchange. 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 Pre-Procedure Diagnosis: Cancer. Indication: Feeding. TECHNIQUE: The patient was placed supine on the fluoroscopy table. Under fluoroscopic guidance, a 4 [place] catheter was placed as a nasogastric tube. [...] confirmed with a small contrast injection. 4 [place] catheter and Glidewire were advanced into the [...] applied. No immediate complication. Tube Type: Gastrostomy, koi. Tube Connection: ENFit. Tube Size: 16 [place]. Low Profile: No. Disc Height: 5 cm. [...] the fluoroscopy table. Underfluoroscopic guidance, a 4 [place] catheter was placed as a nasogastrictube. The [...] confirmed with a small contrast injection. 4 [place] catheter andGlidewire were advanced into the duodenum [...] applied. No immediate complication. Tube Type: Gastrostomy, koi. Tube Connection: ENFit. Tube Size: 16 [place]. Low Profile: No. Disc Height: 5 cm. [...] by Anesthesiology. IMPRESSION: Placement of a 16 [place] percutaneous gastrostomy tube. Nothing by mouthor tube for 2 hours (strict). Then use of mouth or tube for water,medications, and/or tube feeds per Nutrition note/order. Exchange tube in3-5 months. Contact the [facility] at [phone] to schedule the tube exchange. EP Lauren Hernandez M.D. IMG IR PROCEDURES * ECG 12 Lead (05/04/2023 11:34 AM TOOL MAKER) Ventricular Rate ECG/Min 62 BPM MUSE MA Interval 174 ms MUSE QRSD Interval 100 ms MUSE QT Interval 420 ms MUSE QTC Interval 426 ms MUSE P [place] 10 degrees MUSE R [place] -9 degrees MUSE T Wave [place] -14 degrees MUSE 05/04/2023 11:3 4 AM TOOL MAKER 05/04/2023 11:53 AM TOOL MAKER Impressions MUSE - 05/04/2023 11:53 AM TOOL MAKER Normal sinus rhythm Normal ECG No previous ECGs available Reviewed by BHAVESH Medina Narrative Procedure Note Edward Mccurdy Jr., M.D. - 05/04/2023 IMPRESSION: Normal sinus rhythm Normal ECG No previous ECGs available Reviewed by BHAVESH Medina Carlito Chaudhry M.D. ECG ORDERABLES MUSE NA * Phosphorus Inorganic (05/04/2023 9:38 AM TOOL MAKER) Phosphorus (Inorganic), S 3.1 2.5 - 4.5 mg/dL 05/04/2023 11:19 AM TOOL MAKER DTL Blood (Blood, Venous) 05/04/2023 9:38 AM TOOL MAKER 05/04/2023 10:04 AM TOOL MAKER Krishan Martinez APRN.N.P. LAB BLO OD ADD-ON Performing Organization Address City/[facility] [place] [address] * Magnesium (05/04/2023 9:38 AM TOOL MAKER) Only the most recent of2 resultswithin the time period is included. Magnesium, S 2.1 1.7 - 2.3 mg/dL 05/04/2023 11:19 AM TOOL MAKER DTL Blood (Blood, Venous) 05/04/2023 9:38 AM TOOL MAKER 05/04/2023 10:04 AM TOOL MAKER Kendra Tinsley APRN, C.N.P. LAB BLO OD ADD-ON Performing Organization Address [facility] de Phone Number [facility] [address] [place] [address] * Basic Metabolic Panel (05/04/2023 9:38 AM TOOL MAKER) Potassium, S 4.8 3.6 - 5.2 mmol/L 05/04/2023 11:19 AM TOOL MAKER DTL Sodium, S 140 135 - 145 mmol/L 05/04/2023 11:19 AM TOOL MAKER DTL Chloride, S 102 98 - 107 mmol/L 05/04/2023 11:19 AM TOOL MAKER DTL Bicarbonate, S 26 22 - 29 mmol/L 05/04/2023 11:19 AM TOOL MAKER DTL Anion Gap 12 7 - 15 05/04/2023 11:19 AM TOOL MAKER DTL BUN (Blood Urea Nitrogen), S 21 8 - 24 mg/dL 05/04/2023 11:19 AM TOOL MAKER DTL Creatinine 1.26 0.74 - 1.35 mg/dL 05/04/2023 11:19 AM TOOL MAKER DTL Estimated GFR (eGFR) 63 >=60 mL/min/BSA 05/04/2023 11:19 AM TOOL MAKER DTL Comment: Estimated GFR calculated using the 2020 CKD_EPI creatinine equation. Calcium, Total, S 9.7 8.8 - 10.2 mg/dL 05/04/2023 11:19 AM TOOL MAKER DTL Glucose, S 94 70 - 140 mg/dL 05/04/2023 11:19 AM TOOL MAKER DTL Blood (Blood, Venous) 05/04/2023 9:38 AM TOOL MAKER 05/04/2023 10:04 AM TOOL MAKER Kendra Tinsley APRN, C.N.P. LAB BLO OD ADD-ON Performing Organization Address City/[facility]/ZIP Co de Phone Number [place] [address] [place] [address], [facility] [address] [place] [address] * Initial Rad Onc Treatment Planning CT Simulation (03/13/2023 2:15 PM TOOL MAKER) Frida LUQUE - 03/13/2023 2:15 PM TOOL MAKER Gregoria Vega R, RTT ? 03/13/2023 ??2:39 PM Initial Rad Onc Treatment Planning CT Simulation Performed by: Lauren Hernandez M.D. Authorized by: Lauren Hernandez M.D. ?? Lauren Hernandez M.D. RADIATION ONCOLOG Y ORDERABLES Performing Organization Address City/[facility]/ZIP Co de Phone Number LÓPEZ JASSONDolly aburto * Dental Lab (03/11/2023) Narrative Bhavna Engel - 03/11/2023 Poured and trimmed by Renetta Narvaez C.D.T. Fluoride carriers by Radha Engel Joe Moseley B.D.S. DENTAL ORDE RABLES * [facility] (03/10/2023 5:56 PM TOOL MAKER) Narrative Joe Moseley B.D.S. - 03/10/2023 5:56 PM TOOL MAKER Panoramic radiograph taken and reviewed. Image(s) revealed [...] # 19 #[id number] Joe Moseley B.D.S. DENTAL ORDE RABLES * FL Swallow Function with Video and Speech or OT (03/09/2023 10:50 AM TOOL MAKER) Anatomical Region Laterality Modality Gastro Intestinal, Abdominal RST LOS, Abdominal ARZ LOS, Abdominal FLA LOS N/A Digital Radiography 03/09/2023 10:4 6 AM TOOL MAKER Impressions 03/09/2023 10:53 AM TOOL MAKER 1. Negative video swallowing study. Narrative 03/09/2023 10:53 AM TOOL MAKER EXAM: FL SWALLOW FUNCTION WITH VIDEO AND [...] swallowing study. David Soto M.D. IMG FLUOROSCOPY MA OCEDURES * Direct Laryngoscopy-Otorhinolaryngology Image Exam (03/05/2023 10:11 AM TOOL MAKER) 03/05/2023 10:5 1 AM TOOL MAKER Narrative IIMS - 03/05/2023 10:11 AM TOOL MAKER This order has been created and auto-finalized to support the import of images acquired without order. The clinical documentation to support these images can be found on the encounter that produced images. Provider Not In System IMG NON RAD IMAGI NG PROCEDURES IIMS NA * US Lymph Node Biopsy (03/05/2023 8:46 AM TOOL MAKER) Anatomical Region Laterality Modality Body, Ultrasound RST LOS, Ul trasound ARZ LOS, Procedure FLA LOS, Abdominal FLA LOS, Procedural N/A Ultrasound 03/05/2023 9:13 AM TOOL MAKER Impressions 03/05/2023 9:17 AM TOOL MAKER Ultrasound-guided biopsy of an enlarged left neck lymph node. EP Narrative 03/05/2023 9:17 AM TOOL MAKER EXAM: US LYMPH NODE BIOPSY PRE-PROCEDURE: Patient [...] neck lymph node. EP David Soto M.D. [facility] US PROCEDURES * (ABNORMAL) Cytology Fine Needle Aspiration (including core biopsies) (03/05/2023 8:26 AM TOOL MAKER) (A) 3 3:41 PM TOOL MAKER DTL Disclaimer Test results for (IHC or RODRÍGUEZ) testing are valid for specimens fixed between 6 and 72 hours. ??Delay to fixation, under fixation or over fixation fall outside of guidelines and may affect these results. (A) 03/06/2023 3:41 PM TOOL MAKER DTL Report electronically signed by Deann Cabral M.D. I verify that I have examined all relevant slides/materials for the specimen(s) and rendered or confirmed the diagnosis. (A) 03/06/2023 3:41 PM TOOL MAKER DTL Gross Description Received 6 alcohol-fixed smears [...] ??Grossed by AJB. (A) 03/06/2023 3:41 PM TOOL MAKER DTL Source A. Lymph node, Left neck, fine needle aspiration(A) 03/06/2023 3:41 PM TOOL MAKER DTL Addendum HPV (E6/E7) High Risk RODRÍGUEZ performed on block A1 is positive. This indicates positivity for one or more of the following types: 16, 18, 26, 31, 33, 35, 39, 45, 51, 52, 53, 56, 58, 59, 66, 68, 73, and 82. Signed by Deann Cabral M.D. 03/09/2023 6:24 PM This test was developed and its performance characteristics determined by [facility] in a manner consistent with CLIA requirements. This test has not been cleared or approved by the U.S. Food and Drug Administration. (A) 03/09/2023 6:24 PM TOOL MAKER DTL Comment:REVISED RESULTS Interpretation A. Lymph node, [...] in an addendum. (A) 03/09/2023 6:24 PM TOOL MAKER DTL Tissue (Lymph Node) 03/05/2023 8:26 AM TOOL MAKER 03/05/2023 9:12 AM TOOL MAKER David Soto M.D. LAB SURG PATH [facility] [address] [place] [address], [facility] DTL [address] [place] [address] * CBC with Differential, Blood (03/02/2023 8:11 AM TOOL MAKER) Hemoglobin 15.5 13.2 - 16.6 g/dL 03/02/2023 9:20 AM TOOL MAKER DTL Hematocrit 46.1 38.3 - 48.6 % 03/02/2023 9:20 AM TOOL MAKER DTL Erythrocytes 5.02 4.35 - 5.65 x10(12)/L 03/02/2023 9:20 AM TOOL MAKER DTL MCV 91.8 78.2 - 97.9 fL 03/02/2023 9:20 AM TOOL MAKER DTL RBC Distrib Width 12.9 11.8 - 14.5 % 03/02/2023 9:20 AM TOOL MAKER DTL Platelet Count 138 135 - 317 x10(9)/L 03/02/2023 9:20 AM TOOL MAKER DTL Leukocytes 5.4 3.4 - 9.6 x10(9)/L 03/02/2023 9:20 AM TOOL MAKER DTL Neutrophils 2.31 1.56 - 6.45 x10(9)/L 03/02/2023 9:20 AM TOOL MAKER PM Lymphocytes 2.63 0.95 - 3.07 x10(9)/L 03/02/2023 9:20 AM TOOL MAKER DTL Monocytes 0.45 0.26 - 0.81 x10(9)/L 03/02/2023 9:20 AM TOOL MAKER DTL Eosinophils <0.03 0.03 - 0.48 x10(9)/L 03/02/2023 9:20 AM TOOL MAKER DTL Basophils <0.03 0.01 - 0.08 x10(9)/L 03/02/2023 9:20 AM TOOL MAKER DTL Blood (Blood, Venous) 03/02/2023 8:11 AM TOOL MAKER 03/02/2023 8:35 AM TOOL MAKER David Soto M.D. LAB BLOOD ADD-ON [facility] [address] [place] [address], [facility] DTL [facility] [address] [place] [address] DH[address] [facility] [address] [place] [address] * Bilirubin, Direct (03/02/2023 8:11 AM TOOL MAKER) Bilirubin, Direct, S <0.2 0.0 - 0.3 mg/dL 03/02/2023 9:21 AM TOOL MAKER DTL Blood (Blood, Venous) 03/02/2023 8:11 AM TOOL MAKER 03/02/2023 9:04 AM TOOL MAKER David Soto M.D. LAB BLOOD ADD-ON [facility] [address] [place] [address], [facility] [address] [place] [address] * (ABNORMAL) Comprehensive Metabolic Panel (03/02/2023 8:11 AM TOOL MAKER) Potassium, S 4.9 3.6 - 5.2 mmol/L 03/02/2023 9:21 AM TOOL MAKER DTL Sodium, S 141 135 - 145 mmol/L 03/02/2023 9:21 AM TOOL MAKER DTL Chloride, S 104 98 - 107 mmol/L 03/02/2023 9:21 AM TOOL MAKER DTL Bicarbonate, S 27 22 - 29 mmol/L 03/02/2023 9:21 AM TOOL MAKER DTL Anion Gap 10 7 - 15 03/02/2023 9:21 AM TOOL MAKER DTL BUN (Blood Urea Nitrogen), S 17 8 - 24 mg/dL 03/02/2023 9:21 AM TOOL MAKER DTL Creatinine 1.35 0.74 - 1.35 mg/dL 03/02/2023 9:21 AM TOOL MAKER DTL Estimated GFR (eGFR) 58(L) >=60 mL/min/BS A 03/02/2023 9:21 AM TOOL MAKER DTL Comment: Estimated GFR calculated using the 2020 CKD_EPI creatinine equation. Calcium, Total, S 9.0 8.8 - 10.2 mg/dL 03/02/2023 9:21 AM TOOL MAKER DTL Glucose, S 98 70 - 140 mg/dL 03/02/2023 9:21 AM TOOL MAKER DTL Protein, Total, S 6.8 6.3 - 7.9 g/dL 03/02/2023 9:21 AM TOOL MAKER DTL Albumin, S 4.2 3.5 - 5.0 g/dL 03/02/2023 9:21 AM TOOL MAKER DTL Aspartate Aminotransferase (AST), S 41 8 - 48 U/L 03/02/2023 9:21 AM TOOL MAKER DTL Alkaline Phosphatase, S 67 40 - 129 U/L 03/02/2023 9:21 AM TOOL MAKER DTL Alanine Aminotransferase (ALT), S 52 7 - 55 U/L 03/02/2023 9:21 AM TOOL MAKER DTL Bilirubin, Total, S 0.4 0.0 - 1.2 mg/dL 03/02/2023 9:21 AM TOOL MAKER DTL Blood (Blood, Venous) 03/02/2023 8:11 AM TOOL MAKER 03/02/2023 9:04 AM TOOL MAKER David Soto M.D. LAB BLOOD ADD-ON Performing Organization Address City/State/[facility] Co de Phone Number [facility] [address] [place] [address], [facility] DTL [facility] [address] [place] [address] * PET CT Skull to Thigh FDG (03/02/2023 8:00 AM TOOL MAKER) Anatomical Region Laterality Modality Body, Nuclear Medicine PET R ST LOS, PET ARZ LOS, Nuclear Medicine PET [facility] LOS, Nuclear Medicine N/A Positron Emission Tomography (PET), Positron Emission Tomography (PET) 03/02/2023 8:32 AM TOOL MAKER Impressions 03/02/2023 9:56 AM TOOL MAKER 1. 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 2. ??Possible FDG avid colon polyp. Recommend colonoscopy correlation, if clinically indicated. Narrative 03/02/2023 9:56 AM TOOL MAKER EXAM: ??PET CT SKULL TO THIGH FDG Serum glucose at time of F-18 FDG injection was 109 mg/dL. Patient followed standard dietary/fasting requirements for this exam. RADIOPHARMACEUTICAL/MEDS: Route: intravenous fludeoxyglucose F 18 injection SHELTER (FDG F-18),9.96 millicurie TECHNIQUE: ??F-18 FDG PET/CT [...] RADIOPHARMACEUTICAL/MEDS: Route: intravenous fludeoxyglucose F 18 injection SHELTER (FDG F-18),9.96 millicurie TECHNIQUE: F-18 FDG PET/CT [...]
--- OUTSIDE RECORDS SUMMARY | 2023-05-07 10:58 | XMS_ITS | Encounter Summary ---
Author Name Unknown Organization [facility] Address [address] [place] [address] Care Team Providers Care Piano Refinisher Name Role Phone Unavailable Primary Care Provider Unavailabl e Reason for Visit * Reason Comments Feeding Tube Encounter Details Date Type Department Care Team (Latest Contact Info) Description 05/05/2023 10:00 AM DISTRIBUTION DRIVER Clinical Support Division of Endocrinology in [place], [place] [address] [place] [address] Lauren Hernandez M.D. [address] [place] [address] Nannette Leal, R.N. Malignant Neoplasm Of Tonsil [...] your living situation today? I have a [facility] place to live 03/01/2023 Sex and Gender Information Value Date Recorded Sex Assigned at Male 03/01/2023 1:25 PM DISTRIBUTION DRIVER Gender Identity Male 03/01/2023 1:25 PM DISTRIBUTION DRIVER Sexual Orientation Not on file documented as of this encounter Last Filed Vital Signs Vital Sign Reading Time Taken Comments Blood Pressure 125/84 05/05/2023 8:35 AM DISTRIBUTION DRIVER Pulse 66 05/05/2023 8:35 AM DISTRIBUTION DRIVER Temperature - - Respiratory Rate - [...] site care and Tube rotation Supplies given: [employer] *Tad came to appointments this [...] and encouraged to call with any concerns. RIBUTION DRIVER documented in this encounter Plan of Treatment Upcoming Encounters Date Type Department Care Team (Late st Contact Info) Description 05/08/2023 8:00 AM DISTRIBUTION DRIVER Appointment Department of Radiation Oncology in [place], [place] [address] [place] [address] Lauren Hernandez M.D. [address] [place] [address] 05/11/2023 8:15 AM DISTRIBUTION DRIVER Appointment Department of Radiation Oncology in [place], [place] [address] [place] [address] Lauren Hernandez M.D. [address] [place] [address] documented as of this encounter Visit Diagnoses Diagnosis Malignant Neoplasm Of Tonsil (HCC) documented in this encounter
--- OUTSIDE RECORDS SUMMARY | 2023-05-07 10:58 | XMS_ITS | Encounter Summary ---
Author Name Unknown Organization [facility] Address [address] [place] [address] Care Team Providers Care Security Assessor Name Role Phone Unavailable Primary Care Provider Unavailabl e Reason for Visit * Radiation Therapy (Routine) - Authorized Specialty Diagnoses / Procedures Referred By Contac t Referred To Contact Diagnoses Malignant Neoplasm Of Oropharynx (HCC) Procedures Prior Auth Rad Tx [place] IMRT COMPLEX IMRT Lauren Hernandez M.D. [address] [place] [phone] [facility] Radiation Oncology at [place] [address] [place] [phone] Referral ID Status Reason Start Date Expiration Date V isits Requested Visits Authorized [id number] Authorized 03/23/2023 03/11/2024 35 35 Encounter Details Date Type Department Care Team (Late st Contact Info) Description 05/05/2023 1:15 PM [facility] Hospital Encounter Department of Radiation Oncology in [place], [place] [address] [place] [phone] Lauren Hernandez M.D. [address] [place] [phone] Social History Tobacco Use Types Packs/Day Years [...] your living situation today? I have a [facility] place to live 03/01/2023 Sex and Gender Information Value Date Recorded Sex Assigned at Male 03/01/2023 1:25 PM WASTE HAND Gender Identity Male 03/01/2023 1:25 PM WASTE HAND Sexual Orientation Not on file documented as of this encounter Plan of Treatment Upcoming Encounters Date Type Department Care Team (Late st Contact Info) Description 05/08/2023 8:00 AM WASTE HAND Appointment Department of Radiation Oncology in [place], [place] [address] [place] [phone] Lauren Hernandez M.D. [address] [place] [address] 05/11/2023 8:15 AM WASTE HAND Appointment Department of Radiation Oncology in [place], [place] [address] [place] [address] Lauren Hernandez M.D. [address] [place] [address] documented as of this encounter Visit Diagnoses Not on filedocumented in this encounter
--- OUTSIDE RECORDS SUMMARY | 2023-05-07 10:58 | XMS_ITS | Encounter Summary ---
Author Name Unknown Organization [facility] Address [address] [place] [address] Care Team Providers Care Child Care Development Specialist Name Role Phone Unavailable Primary Care Provider Unavailabl e Reason for Referral * Outpatient (Routine) - Closed Specialty Diagnoses / Procedures Referred By Diamond montemayor Referred To Contact Radiology Diagnoses Gastrostomy Status (HCC) Procedures IR Gastrostomy Tube Check Kelly Peter APRN, C.N.P., D.N.P. [address] [place] [phone] [facility] Referral ID Status Reason Start Date Expiration Date Visits Re quested Visits Authorized [id number] Closed 05/05/2023 05/04/2024 1 1 TECH Reason for Visit * Outpatient (Routine) - Closed Specialty Diagnoses / Procedures Referred By Diamond montemayor Referred To Contact Radiology Diagnoses Gastrostomy Status (HCC) Procedures IR Gastrostomy Tube Check Kelly Peter APRN, C.N.P., D.N.P. [address] [place] [phone] [facility] Referral ID Status Reason Start Date Expiration Date Visits Re quested Visits Authorized [id number] Closed 05/05/2023 05/04/2024 1 1 Encounter Details Date Type Department Care Team (Latest Contact Info) Description 05/05/2023 9:20 AM EP TECH - 05/05/2023 10:57 AM EP TECH Hospital Encounter Department of Radiology in [place], [place] [address] [place] [phone] Kelly Peter, PATRICE, C.N.P., D.N.P. [address] [place] [phone] Carlito Chaudhry M.D. [address] [place] [phone] Andrea Perry M.D. [address] [place] [phone] Gastrostomy Status (HCC) Discharge Disposition: Home or [...] Sex Assigned at Male 03/01/2023 1:25 PM EP TECH Gender Identity Male 03/01/2023 1:25 PM EP TECH Sexual Orientation Not on file documented as of this encounter Last Filed Vital Signs Vital Sign Reading Time Taken Comments Blood Pressure 94/66 05/05/2023 10:30 AM EP TECH Pulse 69 05/05/2023 10:30 AM EP TECH Temperature 36.6 ??C (97.9 ??F) 05/05/2023 10:[address] Respiratory Rate 18 05/05/2023 10:46 AM EP TECH Oxygen Saturation 96% 05/05/2023 10:46 AM EP TECH Inhaled Oxygen Concentration - - Weight 108 kg (237 lb 7 oz) 05/05/2023 9:[address] Height - - Body Mass Index 37.09 05/05/2023 7:52 AM EP TECH documented in this encounter Medications at Time [...] As tolerated PATIENT INSTRUCTIONS No return appointment TECH documented in this encounter Plan of Treatment Upcoming Encounters Date Type Department Care Team (Late st Contact Info) Description 05/08/2023 8:00 AM EP TECH Appointment Department of Radiation Oncology in [address] [phone] Lauren Hernandez M.D. [address] [place] [phone] 05/11/2023 8:15 AM EP TECH Appointment Department of Radiation Oncology in [address] [phone] Lauren Hernandez M.D. 200 [place] [phone] documented as of this encounter Procedures Procedure Name Priority Date/Time Associated Diagnosis Comments IR GASTROSTOMY TUBE CHECK RAD - Routine (most inpatients and all outpatients) 05/05/2023 10:36 AM EP TECH Gastrostomy Status (HCC) documented in this encounter Results * IR Gastrostomy Tube Check (05/05/2023 10:36 AM EP TECH) Anatomical Region Laterality Modality Abdomen, Vascular Interventi onal RST LOS, Vascular Interventional FLA LOS N/A X-Ray Angiography Impressions 05/05/2023 11:03 AM EP TECH Appropriate position and function of the 16 Lithuanian gastrostomy tube placed yesterday. No leakage of contrast into the peritoneal cavity. No definitive fluoroscopic explanation for the patient's abdominal pain. EP Narrative 05/05/2023 11:03 AM EP TECH EXAM: IR GASTROSTOMY TUBE CHECK CLINICAL HISTORY: 68-year-old male with abdominal pain after G-tube placement yesterday. Presents for G-tube check. TECHNIQUE: The patient was positioned supine on the fluoroscopy table. Scientist Engineer image of the abdomen demonstrates contrast in [...] patient was positioned supine on the fluoroscopy table.Scientist Engineer image of the abdomen demonstrates contrast in [...] Appropriate position and function of the 16 Lithuanian gastrostomy tube placedyesterday. No leakage of contrast [...] at 1036, Intra-Op Given 05/05/2023 10:36 AM EP TECH 30 mL documented in this encounter Active and Recently Administered Medications Times are shown in EP TECH. PRN Medication Order 05/03/2023 05/04/2023 05/05/2023 iohexoL 300 mg iodine/mL solution (OMNIPAQUE) (COMPLETED) As needed, Starting on Thu05/05/23 at 1036, Intra-Op 1036 (Given - Provid er: Carlito Chaudhry M.D.) documented in this encounter
--- OUTSIDE RECORDS SUMMARY | 2023-05-07 10:58 | XMS_ITS ---
Author Name Unknown Organization [facility] Address [address] [place] [address] Care Team Providers Care Floatman Name Role Phone Unavailable Unavailable Unavailable Surgery Details Not on file Complications Check Surgery Details section. Procedure Estimated Blood Loss Check Surgery Details section. Procedure Findings Check Surgery Details section. Procedure Specimens Taken Check Surgery Details section.
--- OUTSIDE RECORDS SUMMARY | 2023-05-07 10:58 | XMS_ITS | Encounter Summary ---
Author Name Unknown Organization [facility] Address [address] [place] [address] Care Team Providers Care Manager Production Name Role Phone Unavailable Primary Care Provider Unavailabl e Reason for Referral * Radiation Therapy (Routine) - Authorized Specialty Diagnoses / Procedures Referred By Diamond montemayor Referred To Contact Diagnoses Malignant Neoplasm Of Oropharynx (HCC) Procedures Management Visit Lauren Hernandez M.D. 200 [place] [phone] [facility] Region Referral ID Status Reason Start Date Expiration Date V isits Requested Visits Authorized [id number] Authorized 03/12/2023 03/11/2024 10 10 AT OPERATOR Reason for Visit * Radiation Therapy (Routine) - Authorized Specialty Diagnoses / Procedures Referred By Diamond montemayor Referred To Contact Diagnoses Malignant Neoplasm Of Oropharynx (HCC) Procedures Management Visit Lauren Hernandez M.D. [address] [place] [address] [facility] Region Referral ID Status Reason Start Date Expiration Date V isits Requested Visits Authorized [id number] Authorized 03/12/2023 03/11/2024 10 10 Encounter Details Date Type Department Care Team (Latest Contact Info) Description 05/05/2023 1:00 PM BOBCAT OPERATOR - 05/05/2023 1:14 PM BOBCAT OPERATOR Hospital Encounter Department of Radiation Oncology in [address] [phone] Lauren Hernandez M.D. [address] [place] [address] Malignant Neoplasm Of Oropharynx (HCC) Social History [...] your living situation today? I have a [facility] place to live 03/01/2023 Sex and Gender Information Value Date Recorded Sex Assigned at Male 03/01/2023 1:25 PM BOBCAT OPERATOR Gender Identity Male 03/01/2023 1:25 PM BOBCAT OPERATOR Sexual Orientation Not on file documented as of this encounter Last Filed Vital Signs Vital Sign Reading Time Taken Comments Blood Pressure 130/74 05/05/2023 2:38 PM BOBCAT OPERATOR Pulse 71 05/05/2023 2:38 PM BOBCAT OPERATOR Temperature 36.5 ??C (97.7 ??F) 05/05/2023 2:38 PM CS T Respiratory Rate - - Oxygen Saturation - - Inhaled Oxygen Concentration - - Weight 108 kg (237 lb 10.5 oz) 05/05/2023 2:38 P M BOBCAT OPERATOR Height - - Body Mass Index 37.13 05/05/2023 7:52 AM BOBCAT OPERATOR documented in this encounter Medications at Time [...] he should need a refill on his Garland before I see him back. Lauren Hernandez [...] under the care of Dr. Wu at [facility]. Treatment Course: 1xOpx Plan ID Fractions Dose / Fraction (cGy) Dose Treated (cGy) Dose Planned (cGy) First Treatment Last Treatment Elapsed Days F1Opx [phone] 03/23/2023 05/05/2023 43 Course Summary 03/23/2023 05/05/2023 43 The patient was seen and examined today with Dr. Hernandez. Patient had g-tube placed on our [facility] yesterday. Patient experiencing epigastric pain post g-tube placement that was intermittent, positional and pressure like feeling. Trial of feeding tune occurred in [facility] earlier today and went well. Patient reports that he is wearing 12 mcg Fentanyl patch and this helps to level is pain. He takes 1 tablet of Garland 1-2 times a day. He is experiencing [...] He received first feeding through tube at [facility] earlier today. He has been [...] will refill Fentanyl 12 mg patches and Garland tablets today to help with pain control [...] by: Anita Kyle R.N. 05/05/2023 3:14 PM BOBCAT OPERATOR AT OPERATOR documented in this encounter Plan of Treatment Upcoming Encounters Date Type Department Care Team (Late st Contact Info) Description 05/08/2023 8:00 AM BOBCAT OPERATOR Appointment Department of Radiation Oncology in [address] [phone] Lauren Hernandez M.D. [address] [place] [phone] 05/11/2023 8:15 AM BOBCAT OPERATOR Appointment Department of Radiation Oncology in [address] [phone] Lauren Hernandez M.D. [address] [place] [phone] Scheduled Orders Name Type Priority Associated Diagnoses Orde r Schedule Management Visit Radiation Oncology Routine Malignant Neoplasm Of Oropharynx (HCC) Once for 1 Occurrences starting 05/05/2023 until 05/05/2023 documented as of this encounter Visit Diagnoses Diagnosis Malignant Neoplasm Of Oropharynx (HCC) documented in this encounter
--- OUTSIDE RECORDS SUMMARY | 2023-05-07 10:58 | XMS_ITS ---
Author Name Unknown Organization [facility] Address [address] [place] [address] Care Team Providers Care Flask Pusher Name Role Phone Unavailable Primary Care Provider [...] Prescribed Fraction Dose Prescribed Total Dose F1Opx 05/07/2023 45 33 of 35 200 cGy 7,000 cGy Reference Point Last Treated On Elapsed Days Session Dose Total Dose [id number] 05/07/2023 45 200 cGy 6,600 cGy Lifetime Dose Tracking * Chemical Lifetime Dose Automatic Entry Manual Entr y Radiation 449.57 mGy 449.57 mGy 0 mGy Fluoro Time 14.36 minutes 14.36 minutes 0 minutes DAP (uGy-m2) 9,126.18 uGy-m2 9,126.18 uGy-m2 0 uGy-m2
--- OUTSIDE RECORDS SUMMARY | 2023-05-07 10:58 | XMS_ITS | Encounter Summary ---
Author Name Unknown Organization [facility] Address [address] [place] [address] Care Team Providers Care Actuarial Science Professor Name Role Phone Unavailable Primary Care Provider Unavailabl e Reason for Visit * Auth/Cert (Routine) Specialty Diagnoses / Procedures Referred By Diamond t Referred To Contact Diagnoses Malignant Neoplasm Of Tonsil (HCC) Procedures IR GASTROSTOMY TUBE PLACEMENT Referral ID Status Reason Start Date Expiration Date Visits Re quested Visits Authorized [id number] 1 1 Encounter Details Date Type Department Care Team (Late st Contact Info) Description 05/04/2023 12:38 PM RETIREMENT MANAGER Anesthesia Event Department of Radiology in [place], [place] [address] [place] [phone] Jayy Dimas APRN, CRNA, DNAP [address] [place] [phone] Michelet Adhikari APRN, CRNA, DNAP [address] [place] [phone] Anesthesia Record Procedure Summary Procedure Name Responsible [...] your living situation today? I have a [facility] place to live 03/01/2023 Sex and Gender Information Value Date Recorded Sex Assigned at Male 03/01/2023 1:25 PM RETIREMENT MANAGER Gender Identity Male 03/01/2023 1:25 PM RETIREMENT MANAGER Sexual Orientation Not on file documented as of this encounter OR Notes * Anesthesia Postprocedure Evaluation - Jayy Dimas, STRUCTURAL ARCHITECT, STRATEGIES ANALYST, DNAP - 05/04/2023 1:44 PM CST Patient: Tad Roland Procedure Summary Date: 05/04/23 Room / Location: Department of Radiology in [place], [place] Anesthesia Start: 1238 Anesthesia Stop: 1343 Procedure: IR GASTROSTOMY TUBE PLACEMENT Diagnosis: Malignant Neoplasm Of Tonsil (HCC) Malignant Neoplasm Of Tonsil (HCC) (Pt receiving H&N radiation and chemo in [place], losing weight, wants a PEG tube) Scheduled [...] Post Op nausea/vomiting: none Hydration status: euvolemic REMENT MANAGER * Anesthesia Preprocedure Evaluation - Woodrow Baugh M.D. - 05/04/2023 12:25 PM CST Preprocedure Anesthesia & H&P Assessment Procedure Summary Date/Time: 05/04/23 1230 Scheduled providers: Carlito Chaudhry M.D.; Niko Quintanilla M.D. Procedure: IR GASTROSTOMY TUBE PLACEMENT Diagnosis: Malignant Neoplasm Of Tonsil (HCC) [C09.9] Malignant Neoplasm Of Tonsil (HCC) [C09.9] Indications: Pt receiving H&N radiation and chemo in [place], losing weight, wants a PEG tube Location: Department of Radiology in [place], [place] Pertinent components of the patient's history [...] with patient /legal guardian or through an tank truck loader. Risks/Benefits/Alternatives of Blood transfusion discussed with patient / legal guardian, includingan opportunity to ask questions and/or decline some or all transfusion therapies. The patient / legal guardian consented to the use of all blood products, as deemed medically necessary Approval to Proceed: approved for anesthesia REMENT MANAGER documented in this encounter Plan of Treatment Upcoming Encounters Date Type Department Care Team (Late st Contact Info) Description 05/08/2023 8:00 AM RETIREMENT MANAGER Appointment Department of Radiation Oncology in [address] [phone] Lauren Hernandez M.D. [address] [place] [phone] 05/11/2023 8:15 AM RETIREMENT MANAGER Appointment Department of Radiation Oncology in [address] [phone] Lauren Hernandez M.D. [address] [place] [phone] documented as of this encounter Visit Diagnoses Not on filedocumented in this encounter Administered Medications Inactive Administered Medications - up to 3 most recent administrations Medication Order MAR Action Action Date Dose Rate Site glucagon injection (GlucaGen) intravenous, As needed, Starting on Thu05/04/23 at 1313, Anesthesia Intra-op Given 05/04/2023 1:13 PM RETIREMENT MANAGER 0.5 mg lidocaine (PF) (cardiac) injection intravenous, As needed, Starting on Thu05/04/23 at 1244, Anesthesia Intra-op Given 05/04/2023 12:44 PM RETIREMENT MANAGER 100 mg ondansetron (PF) injection (ZOFRAN) intravenous, As needed, Starting on Thu05/04/23 at 1242, Anesthesia Intra-op Given 05/04/2023 12:42 PM RETIREMENT MANAGER 4 mg propofol 10 mg/mL infusion (DIPRIVAN) intravenous, Continuous Infusion: Per Instructions PRN, Starting on Thu05/04/23 at 1251, Anesthesia Intra-op Rate/Dose Change 05/04/2023 1:03 PM RETIREMENT MANAGER 50 mcg/kg/min 32.64 mL/hr New Bag 05/04/2023 12:51 PM RETIREMENT MANAGER 30 mcg/kg/min 19.584 mL /hr remimazolam injection (BYFAVO) intravenous, As needed, Starting on Thu05/04/23 at 1250, Anesthesia Intra-op Given 05/04/2023 1:25 PM RETIREMENT MANAGER 2 mg Given 05/04/2023 1:08 PM RETIREMENT MANAGER 2 mg Given 05/04/2023 12:59 PM RETIREMENT MANAGER 1 mg documented in this encounter
--- OUTSIDE RECORDS SUMMARY | 2023-05-07 10:58 | XMS_ITS | Encounter Summary ---
Author Name Unknown Organization [facility] Address [address] [place] [address] Care Team Providers Care Debit Agent Name Role Phone Unavailable Primary Care Provider Unavailabl e Reason for Visit * Radiation Therapy (Routine) - Authorized Specialty Diagnoses / Procedures Referred By Contac t Referred To Contact Diagnoses Malignant Neoplasm Of Oropharynx (HCC) Procedures Prior Auth Rad Tx [place] IMRT COMPLEX IMRT Lauren Hernandez M.D. [address] [place] [phone] [facility] Radiation [facility] [place] [address] [place] [phone] Referral ID Status Reason Start Date Expiration Date V isits Requested Visits Authorized [id number] Authorized 03/23/2023 03/11/2024 35 35 Encounter Details Date Type Department Care Team (Late st Contact Info) Description 05/07/2023 7:46 AM [facility] Hospital Encounter Department of Radiation Oncology in [place], [place] [address] [place] [phone] Lauren Hernandez M.D. [address] [place] [phone] Social History Tobacco Use Types Packs/Day Years [...] living situation today? I have a [facility] place to live 03/01/2023 Sex and Gender Information Value Date Recorded Sex Assigned at Male 03/01/2023 1:25 PM HIDE BUYER Gender Identity Male 03/01/2023 1:25 PM HIDE BUYER Sexual Orientation Not on file documented as of this encounter Plan of Treatment Upcoming Encounters Date Type Department Care Team (Late st Contact Info) Description 05/08/2023 8:00 AM HIDE BUYER Appointment Department of Radiation Oncology in [place], [place] [address] [place] [phone] Lauren Hernandez M.D. 200 [place] [phone] 05/11/2023 8:15 AM HIDE BUYER Appointment Department of Radiation Oncology in [place], [place] [address] [place] [phone] Lauren Hernandez M.D. [address] [place] [address] documented as of this encounter Visit Diagnoses Not on filedocumented in this encounter
--- OUTSIDE RECORDS SUMMARY | 2023-05-07 10:58 | XMS_ITS | Encounter Summary ---
Author Name Unknown Organization [facility] Address [address] [place] [address] Care Team Providers Care Grain Receiver Name Role Phone Unavailable Primary Care Provider Unavailabl e Encounter Details Date Type Department Care Team (Late st Contact Info) Description 05/05/2023 Documentation Division of General Internal Medicine in [place], [place] [address] [place] [phone] Kaylene Montoya, Pharm.D., R.Ph. Social History Tobacco [...] living situation today? I have a [facility] place to live 03/01/2023 Sex and Gender Information Value Date Recorded Sex Assigned at Male 03/01/2023 1:25 PM MOTEL KEEPER Gender Identity Male 03/01/2023 1:25 PM MOTEL KEEPER Sexual Orientation Not on file documented as [...] change inroute of administration such as this. L KEEPER documented in this encounter Plan of Treatment Upcoming Encounters Date Type Department Care Team (Late st Contact Info) Description 05/08/2023 8:00 AM MOTEL KEEPER Appointment Department of Radiation Oncology in [address] [phone] Lauren Hernandez M.D. [address] [place] [phone] 05/11/2023 8:15 AM MOTEL KEEPER Appointment Department of Radiation Oncology in [place], [place] [address] [place] [address] Lauren Hernandez M.D. [address] [place] [phone] documented as of this encounter Visit Diagnoses Not on filedocumented in this encounter
--- OUTSIDE RECORDS SUMMARY | 2023-05-07 10:58 | XMS_ITS | Referral Summary ---
Author Name Unknown Organization [facility] Address [address] [place] [address] Care Team Providers Care Deep Submergence Vehicle Operator Name Role Phone Unavailable Primary Care Provider Unavailabl e Source Comments Patient records contain information from all sites at [facility]. For routine questions regarding patient records, call [phone] during business hours, M-F 8:00 AM - 5:00 PM Central Time. Record requests for emergency care only can be directed to [phone] at any time.[facility] Encounters Date Type Department Care Team Description 05/07/2023 10:00 AM COLLAR FELLER Virtual Visit Division of Endocrinology in [place], [place] [address] [place] [address] Kendra Tinsley APRN, C.N.P. Kelly Peter APRN, C.N.P., D.N.P. Malignant Neoplasm Of Tonsil (HCC); Dietary Counseling And Surveillance For Enteral Nutrition 05/07/2023 7:46 AM COLLAR FELLER Hospital Encounter Department of Radiation Oncology in [address] [address] Lauren Hernandez M.D. 05/06/2023 7:52 AM COLLAR FELLER Hospital Encounter Department of Radiation Oncology in [address] [address] Lauren Hernandez M.D. 05/05/2023 9:20 AM COLLAR FELLER - 05/05/2023 10:57 AM COLLAR FELLER Hospital Encounter Department of Radiology in [address] [address] Kelly Peter, PATRICE, C.N.P., D.N.P. Carlito Chaudhry M.D. Augustine, Matthew R, M.D. Gastrostomy Status (HCC) Discharge Disposition: Home or Self Care 05/05/2023 Documentation Division of General Internal Medicine in [place], [place] [address] [place] [phone] Kaylene Montoya, D., R.Ph. 05/05/2023 8:00 AM COLLAR FELLER Clinical Support Department of Nutrition and Diabetes Education in [place], [place] [address] [place] [phone] Lauren Hernandez M.D. Tanvi Zarate, RDN, LD Oly Mendez M.S., RDN, LD Gastrostomy Status (HCC) (Primary Dx); Malignant Neoplasm Of Tonsil (HCC) 05/05/2023 10:00 AM COLLAR FELLER Clinical Support Division of Endocrinology in [place], [place] [address] [place] [address] Lauren Hernandez M.D. Giesen, Samantha M, R.N. Malignant Neoplasm Of Tonsil (HCC) 05/05/2023 1:00 PM COLLAR FELLER - 05/05/2023 1:14 PM COLLAR FELLER Hospital Encounter Department of Radiation Oncology in [address] [address] Lauren Hernandez M.D. Malignant Neoplasm Of Oropharynx (HCC) 05/05/2023 1:15 PM COLLAR FELLER Hospital Encounter Department of Radiation Oncology in [address] [address] Lauren Hernandez M.D. 05/04/2023 12:38 PM COLLAR FELLER Anesthesia Event Department of Radiology in [address] [address] Jayy Dimas APRN, SAMPLE DRILLER, DNAP Michelet Adhikari APRN, CRNA, ANGLE 05/04/2023 10:57 AM COLLAR FELLER - 05/04/2023 3:48 PM COLLAR FELLER Hospital Encounter Department of Radiology in [place], [place] [address] [place] [address] Lauren Hernandez M.D. Jundt, Michael C, M.D. Huls, Sean J, M.D. Malignant Neoplasm Of Tonsil (HCC) Discharge Disposition: Home or Self Care 05/04/2023 7:50 AM COLLAR FELLER Hospital Encounter Department of Radiation Oncology in [place], [place] [address] [place] [phone] Lauren Hernandez M.D. 05/01/2023 2:00 PM COLLAR FELLER Comprehensive Visit Division of Endocrinology in [place], [place] [address] [place] [address] Lauren Hernandez M.D. Hagenbrock, Martha C, APRN, C.N.P. Dietary Counseling And Surveillance For Enteral Nutrition (Primary Dx); Malignant Neoplasm Of Tonsil (HCC) 05/01/2023 1:00 PM COLLAR FELLER Clinical Support Division of Endocrinology in [place], [place] [address] [place] [address] Lauren Hernandez M.D. Giesen, Samantha M, R.N. Malignant Neoplasm Of Tonsil (HCC) 05/01/2023 11:00 AM COLLAR FELLER Clinical Support Department of Nutrition and Diabetes Education in [place], [place] [address] [place] [phone] Lauren Hernandez M.D. Olson, Danelle A, M.S., RDN, LD Malignant Neoplasm Of Oropharynx (HCC) (Primary Dx); Malignant Neoplasm Of Tonsil (HCC); Dysphagia Oropharyngeal Phase; Dietary Counseling And Surveillance For Enteral Nutrition; Gastrostomy Status (HCC) 05/01/2023 7:46 AM COLLAR FELLER Hospital Encounter Department of Radiation Oncology in [place], [place] [address] [place] [address] Lauren Hernandez M.D. 04/30/2023 Clinical Communication Division of General Internal Medicine in [place], [place] [address] [place] [address] Jihan Rivas R.N. 04/30/2023 Clinical Communication Department of Radiation Oncology in [address] [address] Ramandeep Sanz R.N. 04/30/2023 7:50 AM COLLAR FELLER Hospital Encounter Department of Radiation Oncology in [address] [address] Lauren Hernandez M.D. 04/29/2023 Clinical Communication Department of Radiology in [place], [place] [address] [place] [address] Tony Lujan, R.N. Procedure (G tube placement) 04/29/2023 Documentation Division of General Internal Medicine in [place], [place] [address] [place] [address] Jihan Rivas, RFcoN. Scheduling 04/29/2023 Clinical Communication Division of Endocrinology in [place], [place] [address] [place] [address] Provider, Unknown 04/29/2023 7:47 AM COLLAR FELLER - 04/29/2023 12:51 PM COLLAR FELLER Hospital Encounter Department of Radiation Oncology in [address] [address] Lauren Hernandez M.D. Malignant Neoplasm Of Tonsil (HCC) (Primary Dx); Malignant Neoplasm Of Oropharynx (HCC) 04/29/2023 7:47 AM COLLAR FELLER Hospital Encounter Department of Radiation Oncology in [address] [address] Lauren Hernandez M.D. 04/28/2023 7:53 AM COLLAR FELLER Hospital Encounter Department of Radiation Oncology in [address] [address] Lauren Hernandez M.D. 04/24/2023 7:54 AM COLLAR FELLER Hospital Encounter Department of Radiation Oncology in [address] [address] Lauren Hernandez M.D. 04/23/2023 8:09 AM COLLAR FELLER Hospital Encounter Department of Radiation Oncology in [address] [address] Ashlee Go APRN, C.N.P., D.N.P. Poly Gill LD Malignant Neoplasm Of Oropharynx (HCC) 04/23/2023 2:48 PM COLLAR FELLER Hospital Encounter Department of Radiation Oncology in [address] [address] Lauren Hernandez M.D. 04/23/2023 7:47 AM COLLAR FELLER Hospital Encounter Department of Radiation Oncology in [address] [address] Lauren Hernandez M.D. 04/22/2023 7:49 AM COLLAR FELLER - 04/22/2023 9:25 AM COLLAR FELLER Hospital Encounter Department of Radiation Oncology in [address] [address] Lauren Hernandez M.D. Leenstra, James L, M.D. Malignant Neoplasm Of Oropharynx (HCC) 04/22/2023 7:49 AM COLLAR FELLER Hospital Encounter Department of Radiation Oncology in [address] [address] Lauren Hernandez M.D. 04/21/2023 8:36 AM COLLAR FELLER Hospital Encounter Department of Radiation Oncology in [address] [address] Lauren Hernandez M.D. 04/17/2023 Orders Only Department of Radiation Oncology in [address] [address] Lauren Hernandez M.D. 04/17/2023 8:18 AM COLLAR FELLER Hospital Encounter Department of Radiation Oncology in [address] [address] Lauren Hernandez M.D. 04/16/2023 8:16 AM COLLAR FELLER Hospital Encounter Department of Radiation Oncology in [address] [address] Lauren Hernandez M.D. 04/15/2023 8:20 AM COLLAR FELLER - 04/15/2023 8:31 AM COLLAR FELLER Hospital Encounter Department of Radiation Oncology in [address] [address] Lauren Hernandez M.D. Malignant Neoplasm Of Oropharynx (HCC) 04/15/2023 8:32 AM COLLAR FELLER Hospital Encounter Department of Radiation Oncology in [address] [address] Lauren Hernandez M.D. 04/14/2023 Clinical Communication Department of Radiation Oncology in [address] [address] Lauren Hernandez M.D. 04/14/2023 8:26 AM COLLAR FELLER Hospital Encounter Department of Radiation Oncology in [address] [address] Lauren Hernandez M.D. 04/13/2023 9:12 AM COLLAR FELLER Hospital Encounter Department of Radiation Oncology in [address] [address] Lauren Hernandez M.D. 04/10/2023 8:45 AM COLLAR FELLER Hospital Encounter Department of Radiation Oncology in [address] [address] Lauren Hernandez M.D. 04/09/2023 8:03 AM COLLAR FELLER Hospital Encounter Department of Radiation Oncology in [address] [address] Ashlee Go APRN, C.N.P., D.N.PPoly Mcginnis LD Malignant Neoplasm Of Oropharynx (HCC) 04/09/2023 8:02 AM COLLAR FELLER Hospital Encounter Department of Radiation Oncology in [address] [address] Lauren Hernandez M.D. 04/08/2023 8:01 AM COLLAR FELLER Hospital Encounter Department of Radiation Oncology in [address] [address] Lauren Hernandez M.D. 04/07/2023 7:51 AM COLLAR FELLER - 04/07/2023 3:25 PM COLLAR FELLER Hospital Encounter Department of Radiation Oncology in [address] [address] Lauren Hernandez M.D. Malignant Neoplasm Of Oropharynx (HCC) 04/07/2023 7:50 AM COLLAR FELLER Hospital Encounter Department of Radiation Oncology in [address] [address] Lauren Hernandez M.D. 04/06/2023 11:37 AM COLLAR FELLER - 04/06/2023 11:59 PM COLLAR FELLER Hospital Encounter Department of Radiation Oncology in [address] [address] Lauren Hernandez M.D. Discharge Disposition: Home or Self Care 04/03/2023 9:53 AM COLLAR FELLER - 04/03/2023 11:57 AM COLLAR FELLER Hospital Encounter Department of Radiation Oncology in [address] [address] Lauren Hernandez M.D. Grieman, Kari A, R.NFco Malignant Neoplasm Of Oropharynx (HCC) Discharge Disposition: Home or Self Care 04/03/2023 9:53 AM COLLAR FELLER - 04/03/2023 11:59 PM COLLAR FELLER Hospital Encounter Department of Radiation Oncology in [address] [address] Lauren Hernandez M.D. Discharge Disposition: Home or Self Care 04/02/2023 7:49 AM COLLAR FELLER - 04/02/2023 3:59 PM COLLAR FELLER Hospital Encounter Department of Radiation Oncology in [address] [address] Lauren Hernandez M.D. Malignant Neoplasm Of Oropharynx (HCC) 04/02/2023 7:49 AM COLLAR FELLER - 04/02/2023 11:59 PM COLLAR FELLER Hospital Encounter Department of Radiation Oncology in [address] [address] Lauren Hernandez M.D. Discharge Disposition: Home or Self Care 04/01/2023 7:47 AM COLLAR FELLER - 04/01/2023 11:59 PM COLLAR FELLER Hospital Encounter Department of Radiation Oncology in [address] [address] Lauren Hernandez M.D. Discharge Disposition: Home or Self Care 03/31/2023 7:50 AM COLLAR FELLER - 03/31/2023 11:59 PM COLLAR FELLER Hospital Encounter Department of Radiation Oncology in [address] [address] Lauren Hernandez M.D. Discharge Disposition: Home or Self Care 03/30/2023 7:46 AM COLLAR FELLER - 03/30/2023 11:59 PM COLLAR FELLER Hospital Encounter Department of Radiation Oncology in [address] [address] Lauren Hernandez M.D. Discharge Disposition: Home or Self Care 03/27/2023 8:04 AM COLLAR FELLER - 03/27/2023 11:59 PM COLLAR FELLER Hospital Encounter Department of Radiation Oncology in [address] [address] Lauren Hernandez M.D. Discharge Disposition: Home or Self Care 03/26/2023 8:26 AM COLLAR FELLER - 03/26/2023 11:59 PM COLLAR FELLER Hospital Encounter Department of Radiation Oncology in [address] [address] Ashlee Go APRN, C.N.P., D.N.P. Yolis Eric, LLOYDN Malignant Neoplasm Of Oropharynx (HCC) Discharge Disposition: Home or Self Care 03/26/2023 8:25 AM COLLAR FELLER Hospital Encounter Department of Radiation Oncology in [address] [address] Lauren Hernandez M.D. Malignant Neoplasm Of Tonsil (HCC) (Primary Dx); Malignant Neoplasm Of Oropharynx (HCC) 03/26/2023 8:24 AM COLLAR FELLER Hospital Encounter Department of Radiation Oncology in [address] [address] Lauren Hernandez M.D. Discharge Disposition: Home or Self Care 03/25/2023 9:26 AM COLLAR FELLER - 03/25/2023 11:59 PM COLLAR FELLER Hospital Encounter Department of Radiation Oncology in [address] [address] Lauren Hernandez M.D. Discharge Disposition: Home or Self Care 03/24/2023 8:12 AM COLLAR FELLER - 03/24/2023 11:59 PM COLLAR FELLER Hospital Encounter Department of Radiation Oncology in [address] [address] Lauren Hernandez M.D. Discharge Disposition: Home or Self Care 03/23/2023 3:05 PM COLLAR FELLER - 03/23/2023 11:59 PM COLLAR FELLER Hospital Encounter Department of Radiation Oncology in [address] [address] Lauren Hernandez M.D. Discharge Disposition: Home or Self Care 03/13/2023 2:07 PM COLLAR FELLER - 03/14/2023 6:30 AM COLLAR FELLER Hospital Encounter Department of Radiation Oncology in [address] [address] Lauren Hernandez M.D. Malignant Neoplasm Of Oropharynx (HCC) 03/13/2023 Clinical Communication Department of Dental Specialties in [place], [place] [address] [place] [address] Joe Moseley B.D.S. 03/13/2023 11:30 AM COLLAR FELLER Clinical Support Department of Dental Specialties in [place], [place] [address] [place] [address] Joe Moseley B.D.S. Malignant Neoplasm Of Oropharynx (HCC) (Primary Dx); Malignant Neoplasm Of Tonsil (HCC); Secondary Malignant Neoplasm Lymph Node (HCC) 03/13/2023 2:00 PM COLLAR FELLER - 03/13/2023 2:06 PM COLLAR FELLER Hospital Encounter Department of Radiation Oncology in [address] [address] Lauren Hernandez M.D. Grieman, Kari A, R.NFco Malignant Neoplasm Of Tonsil (HCC) (Primary Dx) 03/13/2023 12:20 PM COLLAR FELLER - 03/13/2023 1:59 PM COLLAR FELLER Hospital Encounter Department of Radiation Oncology in [address] [address] Lauren Hernandez M.D. Malignant Neoplasm Of Tonsil (HCC) (Primary Dx); Malignant Neoplasm Of Oropharynx (HCC); Secondary Malignant Neoplasm Lymph Node Neck (HCC) 03/12/2023 Orders Only Department of Radiation Oncology in [place], [place] [address] [place] [address] Leesa Zamora Malignant Neoplasm Of Oropharynx (HCC) (Primary Dx) 03/12/2023 Orders Only Department of Radiation Oncology in [address] [address] Terri Crowe P.A.-C., M.S. Malignant Neoplasm Of Oropharynx (HCC) (Primary Dx) 03/12/2023 Orders Only Department of Radiation Oncology in [place], [place] [address] [place] [address] Ashlee Go APRN CFcoNFcoP., D.N.P. Malignant Neoplasm Of Oropharynx (HCC) (Primary Dx) 03/12/2023 Orders Only Department of Oncology in [place], [place] [address] [place] [address] Ana Quinonez R.N. Malignant Neoplasm Of Oropharynx (HCC) (Primary Dx) 03/10/2023 Orders Only Department of Oncology in [place], [place] [address] [place] [address] Ana Quinonez R.N. Malignant Neoplasm Of Oropharynx (HCC) (Primary Dx) 03/10/2023 4:00 PM COLLAR FELLER Comprehensive Visit Department of Dental Specialties in [place], [place] [address] [place] [address] Joe Moseley B.D.S. Malignant Neoplasm Of Oropharynx (HCC); Secondary Malignant Neoplasm Lymph Node (HCC) 03/09/2023 Orders Only Department of Radiation Oncology in [place], [place] [address] [place] [address] Brandon Yeboah Mass Tonsil (Primary Dx) 03/09/2023 10:34 AM COLLAR FELLER - 03/09/2023 11:59 PM COLLAR FELLER Hospital Encounter Department of Radiology, [facility], in [place], [place] [address] [place] [address] David Soto M.D. Riggs, Mallory L MFcoS., [facility] Malignant Neoplasm Of Oropharynx (HCC); Secondary Malignant Neoplasm Lymph Node (HCC) Discharge Disposition: Home or Self Care 03/09/2023 10:30 AM COLLAR FELLER Comprehensive Visit Department of Neurology in [place], [place] [address] [place] [phone] David Soto M.D. Riggs, Mallory L, M.S., [facility] Dysphagia Oropharyngeal Phase (Primary Dx); Malignant Neoplasm Of Oropharynx (HCC); Secondary Malignant Neoplasm Lymph Node (HCC) 03/09/2023 1:30 PM COLLAR FELLER Office Visit Department of Otorhinolaryngology in [address] [address] David Soto M.D. Malignant Neoplasm Of Tonsil (HCC) (Primary Dx); Secondary Malignant Neoplasm Lymph Node (HCC) 03/05/2023 8:10 AM COLLAR FELLER - 03/06/2023 11:34 AM COLLAR FELLER Hospital Encounter Department of Radiology, [facility], in [place], [place] [address] [place] [address] David Soto M.D. Mass Neck; Mass Tonsil Discharge Disposition: Home or Self Care 03/05/2023 10:55 AM COLLAR FELLER Ancillary Procedure Department of Otorhinolaryngology 03/05/2023 12:18 PM COLLAR FELLER - 03/05/2023 1:35 PM COLLAR FELLER Hospital Encounter Department of Radiation Oncology in [address] [address] Parvez Byrd M.D. Malignant Neoplasm Of Tonsil (HCC) (Primary Dx); Mass Tonsil; Mass Neck 03/05/2023 9:45 AM COLLAR FELLER Comprehensive Visit Department of Otorhinolaryngology in [address] [address] David Soto M.D. Malignant Neoplasm Of Oropharynx (HCC); Secondary Malignant Neoplasm Lymph Node (HCC) 03/02/2023 5:54 AM COLLAR FELLER - 03/02/2023 11:59 PM COLLAR FELLER Hospital Encounter Department of Radiology, [facility], in [place], [place] [address] [place] [address] David Soto M.D. Mass Neck; Mass Tonsil Discharge Disposition: Home or Self Care 02/27/2023 10:00 AM CDT Clinical Communication Virtual Review in [place], [place] [address] [place] [address] Previsit Preparation 02/26/2023 10:06 AM CDT - 02/26/2023 11:59 PM CDT Hospital Encounter Department of Radiology, [facility], in [place], [place] [address] [place] [address] David Soto M.D. Mass Neck; Mass Tonsil Discharge Disposition: Home or Self Care 02/25/2023 Clinical Communication Department of Otorhinolaryngology in [place], [place] [address] [place] [address] David Soto M.D. OSM Request 02/24/2023 Orders Only Department of Otorhinolaryngology in [place], [place] [address] [place] [address] Marlyn Santillan R.N. Mass Tonsil (Primary Dx); Mass Neck 02/23/2023 Clinical Communication Department of Otorhinolaryngology in [place], [place] [address] [place] [address] Prescheduling, Provider Appt Question 02/23/2023 Clinical Communication Department of Otorhinolaryngology in [place], [place] [address] [place] [address] Prescheduling, Provider Referral 02/20/2023 Clinical Communication Department of Otorhinolaryngology in [place], [place] [address] [place] [address] Prescheduling, Provider Referral 02/18/2023 Orders Only Department of Otorhinolaryngology in [place], [place] [address] [place] [address] Marlyn Santillan R.N. Mass Neck (Primary Dx); Mass Tonsil 02/17/2023 [facility] [address] [place] [address] Toi Yap M.D. Other Diseases Of Pharynx [...] 4 each 0 4 04/29/19 24 Discontinued(Reo rdhilda) Active Problems Problem Noted Date Diagnosed Date [...] your living situation today? I have a [facility] place to live 03/01/2023 Sex and Gender Information Value Date Recorded Sex Assigned at Male 03/01/2023 1:25 PM COLLAR FELLER Gender Identity Male 03/01/2023 1:25 PM COLLAR FELLER Sexual Orientation Not on file Last Filed Vital Signs Vital Sign Reading Time Taken Comments Blood Pressure 130/74 05/05/2023 2:38 PM COLLAR FELLER Pulse 71 05/05/2023 2:38 PM COLLAR FELLER Temperature 36.5 ??C (97.7 ??F) 05/05/2023 2:38 PM CS T Respiratory Rate 18 05/05/2023 10:46 AM COLLAR FELLER Oxygen Saturation 96% 05/05/2023 10:46 AM COLLAR FELLER Inhaled Oxygen Concentration - - Weight 108 kg (237 lb 10.5 oz) 05/05/2023 2:38 P M COLLAR FELLER Height 170.4 cm (5' 7.09) 05/05/2023 7:52 AM CS T Body Mass Index 37.13 05/05/2023 7:52 AM COLLAR FELLER Plan of Treatment Upcoming Encounters Date Type Department Care Team (Late st Contact Info) Description 05/08/2023 8:00 AM COLLAR FELLER Appointment Department of Radiation Oncology in [address] [phone] Lauren Hernandez M.D. 200 [place] [address] 05/11/2023 8:15 AM COLLAR FELLER Appointment Department of Radiation Oncology in [address] [address] Lauren Hernandez M.D. [address] [place] [phone] Procedures Procedure Name Priority Date/Time Associated Diagnosis Comments ARIA DAILY TREATMENT INFORMATION Routine 05/07/2023 7:59 AM COLLAR FELLER OUTSIDE US BODY Routine 05/06/2023 10:50 AM COLLAR FELLER ARIA DAILY TREATMENT INFORMATION Routine 05/06/2023 8:12 AM COLLAR FELLER ARIA DAILY TREATMENT INFORMATION Routine 05/05/2023 2:31 PM COLLAR FELLER IR GASTROSTOMY TUBE CHECK RAD - Routine (most inpatients and all outpatients) 05/05/2023 10:36 AM COLLAR FELLER Gastrostomy Status (HCC) IR GASTROSTOMY TUBE PLACEMENT RAD - Routine (most inpatients and all outpatients) 05/04/2023 1:35 PM COLLAR FELLER Malignant Neoplasm Of Tonsil (HCC) ECG STAT 05/04/2023 11:34 AM COLLAR FELLER PHOSPHORUS (INORGANIC), S Routine 05/04/2023 9:38 AM COLLAR FELLER Malignant Neoplasm Of Tonsil (HCC) Dietary Counseling And Surveillance For Enteral Nutrition MAGNESIUM, S Routine 05/04/2023 9:38 AM COLLAR FELLER Malignant Neoplasm Of Tonsil (HCC) Dietary Counseling And Surveillance For Enteral Nutrition BASIC METABOLIC PANEL, S/P Routine 05/04/2023 9:38 AM COLLAR FELLER Malignant Neoplasm Of Tonsil (HCC) Dietary Counseling And Surveillance For Enteral Nutrition ARIA DAILY TREATMENT INFORMATION Routine 05/04/2023 8:06 AM COLLAR FELLER ARIA DAILY TREATMENT INFORMATION Routine 05/01/2023 8:12 AM COLLAR FELLER ARIA DAILY TREATMENT INFORMATION Routine 04/30/2023 8:05 AM COLLAR FELLER ARIA DAILY TREATMENT INFORMATION Routine 04/29/2023 8:22 AM COLLAR FELLER ARIA DAILY TREATMENT INFORMATION Routine 04/28/2023 8:14 AM COLLAR FELLER ARIA DAILY TREATMENT INFORMATION Routine 04/24/2023 8:06 AM COLLAR FELLER ARIA DAILY TREATMENT INFORMATION Routine 04/23/2023 3:06 PM COLLAR FELLER ARIA DAILY TREATMENT INFORMATION Routine 04/23/2023 8:07 AM COLLAR FELLER ARIA DAILY TREATMENT INFORMATION Routine 04/22/2023 8:15 AM COLLAR FELLER ARIA DAILY TREATMENT INFORMATION Routine 04/21/2023 9:10 AM COLLAR FELLER ARIA DAILY TREATMENT INFORMATION Routine 04/17/2023 8:52 AM COLLAR FELLER ARIA DAILY TREATMENT INFORMATION Routine 04/16/2023 8:56 AM COLLAR FELLER ARIA DAILY TREATMENT INFORMATION Routine 04/15/2023 8:44 AM COLLAR FELLER ARIA DAILY TREATMENT INFORMATION Routine 04/14/2023 8:43 AM COLLAR FELLER ARIA DAILY TREATMENT INFORMATION Routine 04/13/2023 9:22 AM COLLAR FELLER ARIA DAILY TREATMENT INFORMATION Routine 04/10/2023 9:08 AM COLLAR FELLER ARIA DAILY TREATMENT INFORMATION Routine 04/09/2023 8:46 AM COLLAR FELLER ARIA DAILY TREATMENT INFORMATION Routine 04/08/2023 8:18 AM COLLAR FELLER ARIA DAILY TREATMENT INFORMATION Routine 04/07/2023 8:19 AM COLLAR FELLER ARIA DAILY TREATMENT INFORMATION Routine 04/06/2023 12:07 PM COLLAR FELLER ARIA DAILY TREATMENT INFORMATION Routine 04/03/2023 10:37 AM COLLAR FELLER ARIA DAILY TREATMENT INFORMATION Routine 04/02/2023 8:28 AM COLLAR FELLER ARIA DAILY TREATMENT INFORMATION Routine 04/01/2023 8:07 AM COLLAR FELLER ARIA DAILY TREATMENT INFORMATION Routine 03/31/2023 8:33 AM COLLAR FELLER ARIA DAILY TREATMENT INFORMATION Routine 03/30/2023 8:15 AM COLLAR FELLER ARIA DAILY TREATMENT INFORMATION Routine 03/27/2023 8:47 AM COLLAR FELLER ARIA DAILY TREATMENT INFORMATION Routine 03/26/2023 8:52 AM COLLAR FELLER ARIA DAILY TREATMENT INFORMATION Routine 03/25/2023 9:57 AM COLLAR FELLER ARIA DAILY TREATMENT INFORMATION Routine 03/24/2023 8:46 AM COLLAR FELLER ARIA DAILY TREATMENT INFORMATION Routine 03/23/2023 3:29 PM COLLAR FELLER INITIAL RAD ONC TREATMENT PLANNING CT SIMULATION Routine 03/13/2023 2:15 PM COLLAR FELLER Malignant Neoplasm Of Oropharynx (HCC) [place] FLUORIDE APPL TRAYS UPPER & LOWER Routine 03/13/2023 11:30 AM COLLAR FELLER Malignant Neoplasm Of Oropharynx (HCC) 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) DENTAL LAB Routine 03/11/2023 MEDICAL PANOREX Routine 03/10/2023 5:56 PM COLLAR FELLER 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) [place] SWALLOW FUNCTION WITH VIDEO AND SPEECH OR OT FOR RST RAD - Routine (most inpatients and all outpatients) 03/09/2023 10:50 AM COLLAR FELLER 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) OTORHINOLARYNGOLOGY IMAGE EXAM Routine 03/05/2023 10:11 AM COLLAR FELLER US LYMPH NODE BIOPSY RAD - Routine (most inpatients and all outpatients) 03/05/2023 8:46 AM COLLAR FELLER [place] Mass [place] CYTOLOGY FINE NEEDLE ASPIRATION (INCLUDES CORE BIOPSIES Timed 03/05/2023 8:26 AM COLLAR FELLER MAGNESIUM, S Routine 03/02/2023 8:11 AM COLLAR FELLER [place] CBC WITH DIFFERENTIAL, B Routine 023 8:11 AM COLLAR FELLER [place] BILIRUBIN DIRECT, S/P Routine 03/02/2023 8:11 AM COLLAR FELLER [place] COMPREHENSIVE METABOLIC PANEL, S/P Routine 03/02/2023 8:11 AM COLLAR FELLER [place] PET CT SKULL TO THIGH RAD - Routine (most inpatients and all outpatients) 03/02/2023 8:00 AM COLLAR FELLER [place] US THYROID RAD - Routine (most inpatients and all outpatients) 02/26/2023 11:20 AM CDT [place] OUTSIDE CT NEURO Routine 02/12/2023 8:40 AM CDT from Last 3 Months Results * Aria Daily Treatment Information (05/07/2023 7:59 AM COLLAR FELLER) Only the most recent of33 resultswithin the time period is included. Course ID [id number] LÓPEZ ARIA Course Start Date 3 12:01 COLLAR FELLER LÓPEZ ARIA First Treatment Date 3 15:24 COLLAR FELLER LÓPEZ ARIA Last Treatment Date 4 07:59 COLLAR FELLER LÓPEZ ARIA Treatment Elapsed Days 45 LÓPEZ ARIA Reference Point [id number] LÓPEZ ARIA Dosage Given to Date cGy 6600 LÓPEZ ARIA Session Dosage Given 200 LÓPEZ ARIA Plan ID [id number] LÓPEZ ARIA Fractions Treated to Date 33 LÓPEZ ARIA Planned Total Fractions 35 LÓPEZ ARIA Prescribed Dose Per Fraction 200 LÓPEZ ARIA Prescription Dose in cGy 7000 LÓPEZ ARIA Plan Primary Reference Point [id number] LÓPEZ ARIA 05/07/2023 7:59 AM COLLAR FELLER Provider Not In System RADIATION ONCOLOG Y ORDERABLES LÓPEZ ENE na * US abdomen limited-Outside US Body (05/06/2023 10:50 AM COLLAR FELLER) 05/06/2023 10:5 0 AM COLLAR FELLER Narrative IIMS - 05/06/2023 11:49 AM COLLAR FELLER This order has been created and auto-finalized [...] IR Gastrostomy Tube Check (05/05/2023 10:36 AM COLLAR FELLER) Anatomical Region Laterality Modality Abdomen, Vascular Interventi onal RST LOS, Vascular Interventional FLA LOS N/A X-Ray Angiography Impressions 05/05/2023 11:03 AM COLLAR FELLER Appropriate position and function of the 16 Bangladeshi gastrostomy tube placed yesterday. No leakage of contrast into the peritoneal cavity. No definitive fluoroscopic explanation for the patient's abdominal pain. EP Narrative 05/05/2023 11:03 AM COLLAR FELLER EXAM: IR GASTROSTOMY TUBE CHECK CLINICAL HISTORY: 68-year-old male with abdominal pain after G-tube placement yesterday. Presents for G-tube check. TECHNIQUE: The patient was positioned supine on the fluoroscopy table. Evaluation Analyst image of the abdomen demonstrates contrast in [...] patient was positioned supine on the fluoroscopy table.Evaluation Analyst image of the abdomen demonstrates contrast in [...] Appropriate position and function of the 16 Bangladeshi gastrostomy tube placedyesterday. No leakage of contrast into the peritoneal cavity. Nodefinitive fluoroscopic explanation for the patient's abdominal pain. EP Kelly Peter APRN, C.N.P., D.N.P. IMG I R PROCEDURES * IR Gastrostomy Tube Placement (05/04/2023 1:35 PM COLLAR FELLER) Anatomical Region Laterality Modality Abdomen, Vascular Interventi onal RST LOS, Vascular Interventional ARZ LOS, Vascular Interventional FLA LOS N/A X-Ray Angiography Impressions 05/04/2023 2:06 PM COLLAR FELLER Placement of a 16 Bangladeshi percutaneous gastrostomy tube. Nothing by mouth or tube for 2 hours (strict). Then use of mouth or tube for water, medications, and/or tube feeds per Nutrition note/order. Exchange tube in 3-5 months. Contact the [facility] clinic at [phone] to schedule the tube exchange. 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 Pre-Procedure Diagnosis: Cancer. Indication: Feeding. TECHNIQUE: The patient was placed supine on the fluoroscopy table. Under fluoroscopic guidance, a 4 Bangladeshi catheter was placed as a nasogastric tube. [...] confirmed with a small contrast injection. 4 Bangladeshi catheter and Glidewire were advanced into the [...] applied. No immediate complication. Tube Type: Gastrostomy, port gamble. Tube Connection: ENFit. Tube Size: 16 Bangladeshi. Low Profile: No. Disc Height: 5 cm. [...] the fluoroscopy table. Underfluoroscopic guidance, a 4 Bangladeshi catheter was placed as a nasogastrictube. The [...] confirmed with a small contrast injection. 4 Bangladeshi catheter andGlidewire were advanced into the duodenum [...] applied. No immediate complication. Tube Type: Gastrostomy, port gamble. Tube Connection: ENFit. Tube Size: 16 Bangladeshi. Low Profile: No. Disc Height: 5 cm. [...] by Anesthesiology. IMPRESSION: Placement of a 16 Bangladeshi percutaneous gastrostomy tube. Nothing by mouthor tube for 2 hours (strict). Then use of mouth or tube for water,medications, and/or tube feeds per Nutrition note/order. Exchange tube in3-5 months. Contact the [facility] at [phone] to schedule the tube exchange. EP Lauren Hernandez M.D. IMG IR PROCEDURES * ECG 12 Lead (05/04/2023 11:34 AM COLLAR FELLER) Ventricular Rate ECG/Min 62 BPM MUSE [place] Interval 174 ms MUSE QRSD Interval 100 ms MUSE QT Interval 420 ms MUSE QTC Interval 426 ms MUSE P [place] 10 degrees MUSE R [place] -9 degrees MUSE T Wave [place] -14 degrees MUSE 05/04/2023 11:3 4 AM COLLAR FELLER 05/04/2023 11:53 AM COLLAR FELLER Impressions MUSE - 05/04/2023 11:53 AM COLLAR FELLER Normal sinus rhythm Normal ECG No previous ECGs available Reviewed by BHAVESH Medina Narrative Procedure Note Edward Mccurdy Jr., M.D. - 05/04/2023 IMPRESSION: Normal sinus rhythm Normal ECG No previous ECGs available Reviewed by BHAVESH Medina Carlito C Jundt M.D. ECG ORDERABLES Performing Organization Address City/[facility]/ZIP Co de Phone Number MUSE NA * Phosphorus Inorganic (05/04/2023 9:38 AM COLLAR FELLER) Phosphorus (Inorganic), S 3.1 2.5 - 4.5 mg/dL 05/04/2023 11:19 AM COLLAR FELLER DTL Blood (Blood, Venous) 05/04/2023 9:38 AM COLLAR FELLER 05/04/2023 10:04 AM COLLAR FELLER Kendra Tinsley APRN, C.N.P. LAB BLO OD ADD-ON Performing Organization Address [facility] Co de Phone Number [facility] [address] [place] [address] * Magnesium (05/04/2023 9:38 AM COLLAR FELLER) Only the most recent of2 resultswithin the time period is included. Magnesium, S 2.1 1.7 - 2.3 mg/dL 05/04/2023 11:19 AM COLLAR FELLER DTL Blood (Blood, Venous) 05/04/2023 9:38 AM COLLAR FELLER 05/04/2023 10:04 AM COLLAR FELLER Kendra Tinsley APRN, C.N.P. LAB BLO OD ADD-ON Performing Organization Address [facility] Co de Phone Number [facility] 200 [place] [address], [facility] 200 [place] [address] * Basic Metabolic Panel (05/04/2023 9:38 AM COLLAR FELLER) Potassium, S 4.8 3.6 - 5.2 mmol/L 05/04/2023 11:19 AM COLLAR FELLER DTL Sodium, S 140 135 - 145 mmol/L 05/04/2023 11:19 AM COLLAR FELLER DTL Chloride, S 102 98 - 107 mmol/L 05/04/2023 11:19 AM COLLAR FELLER DTL Bicarbonate, S 26 22 - 29 mmol/L 05/04/2023 11:19 AM COLLAR FELLER DTL Anion Gap 12 7 - 15 05/04/2023 11:19 AM COLLAR FELLER DTL BUN (Blood Urea Nitrogen), S 21 8 - 24 mg/dL 05/04/2023 11:19 AM COLLAR FELLER DTL Creatinine 1.26 0.74 - 1.35 mg/dL 05/04/2023 11:19 AM COLLAR FELLER DTL Estimated GFR (eGFR) 63 >=60 mL/min/BSA 05/04/2023 11:19 AM COLLAR FELLER DTL Comment: Estimated GFR calculated using the 2020 CKD_EPI creatinine equation. Calcium, Total, S 9.7 8.8 - 10.2 mg/dL 05/04/2023 11:19 AM COLLAR FELLER DTL Glucose, S 94 70 - 140 mg/dL 05/04/2023 11:19 AM COLLAR FELLER DTL Blood (Blood, Venous) 05/04/2023 9:38 AM COLLAR FELLER 05/04/2023 10:04 AM COLLAR FELLER Kendra Tinsley APRN, C.N.P. LAB BLO OD ADD-ON [address] [facility] [address] [place] [address] * Initial Rad Onc Treatment Planning CT Simulation (03/13/2023 2:15 PM COLLAR FELLER) Narrative RENE LUQUE - 03/13/2023 2:15 PM COLLAR FELLER Gregoria Vega, RTT ? 03/13/2023 ??2:39 PM Initial Rad Onc Treatment Planning CT Simulation Performed by: Lauren Hernandez M.D. Authorized by: Lauren Hernandez M.D. ?? Lauren Hernandez M.D. RADIATION ONCOLOG Y ORDERABLES WINIGAN ENE na * Dental Lab (03/11/2023) Narrative Bhavna Engel - 03/11/2023 Poured and trimmed by Renetta Narvaez C.D.T. Fluoride carriers by Radha Engel Joe Moseley B.D.S. DENTAL ORDIris FULLER * [facility] (03/10/2023 5:56 PM COLLAR FELLER) Narrative Joe Moseley B.D.S. - 03/10/2023 5:56 PM COLLAR FELLER Panoramic radiograph taken and reviewed. Image(s) revealed [...] # 19 #30 Joe Moseley B.D.S. DENTAL ORDIris FULLER * [place] Swallow Function with Video and Speech or OT (03/09/2023 10:50 AM COLLAR FELLER) Anatomical Region Laterality Modality Gastro Intestinal, Abdominal RST LOS, Abdominal ARZ LOS, Abdominal FLA LOS N/A Digital Radiography 03/09/2023 10:4 6 AM COLLAR FELLER Impressions 03/09/2023 10:53 AM COLLAR FELLER 1. Negative video swallowing study. Narrative 03/09/2023 10:53 AM COLLAR FELLER EXAM: FL SWALLOW FUNCTION WITH VIDEO AND [...] swallowing study. David Soto M.D. IMG FLUOROSCOPY [place] OCEDURES * Direct Laryngoscopy-Otorhinolaryngology Image Exam (03/05/2023 10:11 AM COLLAR FELLER) 03/05/2023 10:5 1 AM COLLAR FELLER Narrative IIMS - 03/05/2023 10:11 AM COLLAR FELLER This order has been created and auto-finalized to support the import of images acquired without order. The clinical documentation to support these images can be found on the encounter that produced images. Provider Not In System IMG NON RAD IMAGI NG PROCEDURES IIMN NA * US Lymph Node Biopsy (03/05/2023 8:46 AM COLLAR FELLER) Anatomical Region Laterality Modality Body, Ultrasound RST LOS, Ul trasound ARZ LOS, Procedure FLA LOS, Abdominal FLA LOS, Procedural N/A Ultrasound 03/05/2023 9:13 AM COLLAR FELLER Impressions 03/05/2023 9:17 AM COLLAR FELLER Ultrasound-guided biopsy of an enlarged left neck lymph node. EP Narrative 03/05/2023 9:17 AM COLLAR FELLER EXAM: US LYMPH NODE BIOPSY PRE-PROCEDURE: Patient [...] neck lymph node. EP David Soto M.D. [facility] US PROCEDURES * (ABNORMAL) Cytology Fine Needle Aspiration (including core biopsies) (03/05/2023 8:26 AM COLLAR FELLER) (A) 3 3:41 PM COLLAR FELLER DTL Disclaimer Test results for (IHC or RODRÍGUEZ) testing are valid for specimens fixed between 6 and 72 hours. ??Delay to fixation, under fixation or over fixation fall outside of guidelines and may affect these results. (A) 03/06/2023 3:41 PM COLLAR FELLER DTL Report electronically signed by Deann Cabral M.D. I verify that I have examined all relevant slides/materials for the specimen(s) and rendered or confirmed the diagnosis. (A) 03/06/2023 3:41 PM COLLAR FELLER DTL Gross Description Received 6 alcohol-fixed smears [...] ??Grossed by AJB. (A) 03/06/2023 3:41 PM COLLAR FELLER DTL Source A. Lymph node, Left neck, fine needle aspiration(A) 03/06/2023 3:41 PM COLLAR FELLER DTL Addendum HPV (E6/E7) High Risk RODRÍGUEZ performed on block A1 is positive. This indicates positivity for one or more of the following types: 16, 18, 26, 31, 33, 35, 39, 45, 51, 52, 53, 56, 58, 59, 66, 68, 73, and 82. Signed by Deann Cabral M.D. 03/09/2023 6:24 PM This test was developed and its performance characteristics determined by [facility] in a manner consistent with CLIA requirements. This test has not been cleared or approved by the U.S. Food and Drug Administration. (A) 03/09/2023 6:24 PM COLLAR FELLER DTL Comment:REVISED RESULTS Interpretation A. Lymph node, [...] in an addendum. (A) 03/09/2023 6:24 PM COLLAR FELLER DTL Tissue (Lymph Node) 03/05/2023 8:26 AM COLLAR FELLER 03/05/2023 9:12 AM COLLAR FELLER David Soto M.D. LAB SURG PATH JUAN CARLOS FULLER [facility] [address] [place] [address], [facility] DTL [address] [place] [address] * CBC with Differential, Blood (03/02/2023 8:11 AM COLLAR FELLER) Hemoglobin 15.5 13.2 - 16.6 g/dL 03/02/2023 9:20 AM COLLAR FELLER DTL Hematocrit 46.1 38.3 - 48.6 % 03/02/2023 9:20 AM COLLAR FELLER DTL Erythrocytes 5.02 4.35 - 5.65 x10(12)/L 03/02/2023 9:20 AM COLLAR FELLER DTL MCV 91.8 78.2 - 97.9 fL 03/02/2023 9:20 AM COLLAR FELLER DTL RBC Distrib Width 12.9 11.8 - 14.5 % 03/02/2023 9:20 AM COLLAR FELLER DTL Platelet Count 138 135 - 317 x10(9)/L 03/02/2023 9:20 AM COLLAR FELLER DTL Leukocytes 5.4 3.4 - 9.6 x10(9)/L 03/02/2023 9:20 AM COLLAR FELLER DTL Neutrophils 2.31 1.56 - 6.45 x10(9)/L 03/02/2023 9:20 AM COLLAR FELLER DHPM Lymphocytes 2.63 0.95 - 3.07 x10(9)/L 03/02/2023 9:20 AM COLLAR FELLER DTL Monocytes 0.45 0.26 - 0.81 x10(9)/L 03/02/2023 9:20 AM COLLAR FELLER DTL Eosinophils <0.03 0.03 - 0.48 x10(9)/L 03/02/2023 9:20 AM COLLAR FELLER DTL Basophils <0.03 0.01 - 0.08 x10(9)/L 03/02/2023 9:20 AM COLLAR FELLER DTL Blood (Blood, Venous) 03/02/2023 8:11 AM COLLAR FELLER 03/02/2023 8:35 AM COLLAR FELLER David Soto M.D. LAB BLOOD ADD-ON [facility] 200 [place] [address], [facility] 200 [place] [address] [address] * Bilirubin, Direct (03/02/2023 8:11 AM COLLAR FELLER) Bilirubin, Direct, S <0.2 0.0 - 0.3 mg/dL 03/02/2023 9:21 AM COLLAR FELLER DTL Blood (Blood, Venous) 03/02/2023 8:11 AM COLLAR FELLER 03/02/2023 9:04 AM COLLAR FELLER David Soto M.D. LAB BLOOD ADD-ON Performing Organization Address City/[facility]/ZIP Co de Phone Number [facility] 200 [place], [place] [address] 200 [place] [address] * (ABNORMAL) Comprehensive Metabolic Panel (03/02/2023 8:11 AM COLLAR FELLER) Potassium, S 4.9 3.6 - 5.2 mmol/L 03/02/2023 9:21 AM COLLAR FELLER DTL Sodium, S 141 135 - 145 mmol/L 03/02/2023 9:21 AM COLLAR FELLER DTL Chloride, S 104 98 - 107 mmol/L 03/02/2023 9:21 AM COLLAR FELLER DTL Bicarbonate, S 27 22 - 29 mmol/L 03/02/2023 9:21 AM COLLAR FELLER DTL Anion Gap 10 7 - 15 03/02/2023 9:21 AM COLLAR FELLER DTL BUN (Blood Urea Nitrogen), S 17 8 - 24 mg/dL 03/02/2023 9:21 AM COLLAR FELLER DTL Creatinine 1.35 0.74 - 1.35 mg/dL 03/02/2023 9:21 AM COLLAR FELLER DTL Estimated GFR (eGFR) 58(L) >=60 mL/min/BS A 03/02/2023 9:21 AM COLLAR FELLER DTL Comment: Estimated GFR calculated using the 2020 CKD_EPI creatinine equation. Calcium, Total, S 9.0 8.8 - 10.2 mg/dL 03/02/2023 9:21 AM COLLAR FELLER DTL Glucose, S 98 70 - 140 mg/dL 03/02/2023 9:21 AM COLLAR FELLER DTL Protein, Total, S 6.8 6.3 - 7.9 g/dL 03/02/2023 9:21 AM COLLAR FELLER DTL Albumin, S 4.2 3.5 - 5.0 g/dL 03/02/2023 9:21 AM COLLAR FELLER DTL Aspartate Aminotransferase (AST), S 41 8 - 48 U/L 03/02/2023 9:21 AM COLLAR FELLER DTL Alkaline Phosphatase, S 67 40 - 129 U/L 03/02/2023 9:21 AM COLLAR FELLER DTL Alanine Aminotransferase (ALT), S 52 7 - 55 U/L 03/02/2023 9:21 AM COLLAR FELLER DTL Bilirubin, Total, S 0.4 0.0 - 1.2 mg/dL 03/02/2023 9:21 AM COLLAR FELLER DTL Blood (Blood, Venous) 03/02/2023 8:11 AM COLLAR FELLER 03/02/2023 9:04 AM COLLAR FELLER David Soto M.D. LAB BLOOD ADD-ON [facility] [address] [place] [address], [facility] DTL [facility] [address] [place] [address] * PET CT Skull to Thigh FDG (03/02/2023 8:00 AM COLLAR FELLER) Anatomical Region Laterality Modality Body, Nuclear Medicine PET R ST LOS, PET ARZ LOS, Nuclear Medicine PET FLA LOS, Nuclear Medicine N/A Positron Emission Tomography (PET), Positron Emission Tomography (PET) 03/02/2023 8:32 AM COLLAR FELLER Impressions 03/02/2023 9:56 AM COLLAR FELLER 1. 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 2. ??Possible FDG avid colon polyp. Recommend colonoscopy correlation, if clinically indicated. Narrative 03/02/2023 9:56 AM COLLAR FELLER EXAM: ??PET CT SKULL TO THIGH FDG Serum glucose at time of F-18 FDG injection was 109 mg/dL. Patient followed standard dietary/fasting requirements for this exam. RADIOPHARMACEUTICAL/MEDS: Route: intravenous fludeoxyglucose F 18 injection RESIDENTIAL (FDG F-18),9.96 millicurie TECHNIQUE: ??F-18 FDG PET/CT [...] RADIOPHARMACEUTICAL/MEDS: Route: intravenous fludeoxyglucose F 18 injection RESIDENTIAL (FDG F-18),9.96 millicurie TECHNIQUE: F-18 FDG PET/CT [...] polyp. Recommend colonoscopy correlation, ifclinically indicated. David K Tasche M.D. IMG NM PROCEDURES * US Thyroid (02/26/2023 11:20 [...]
--- OUTSIDE RECORDS SUMMARY | 2023-05-07 10:58 | XMS_ITS | Encounter Summary ---
Author Name Unknown Organization [facility] Address [address] [place] [address] Care Team Providers Care Gasoline Finisher Name Role Phone Unavailable Primary Care Provider Unavailabl e Reason for Referral * Outpatient (Routine) - Authorized Specialty Diagnoses / Procedures Referred By Diamond t Referred To Contact Endocrinology Diagnoses Gastrostomy Status (HCC) Kelly Peter APRN, C.N.P., D.N.P. [address] [place] [phone] [facility] Referral ID Status Reason Start Date Expiration Date V isits Requested Visits Authorized [id number] Authorized 05/05/2023 05/04/2024 1 1 S AND CRANES INSPECTOR * Outpatient (Routine) - Closed Specialty Diagnoses / Procedures Referred By Contac t Referred To Contact Radiology Diagnoses Gastrostomy Status (HCC) Procedures IR Gastrostomy Tube Check Kelly Peter APRN, C.N.P., D.N.P. [address] [place] [phone] [facility] Referral ID Status Reason Start Date Expiration Date Visits Re quested Visits Authorized [id number] Closed 05/05/2023 05/04/2024 1 1 S AND CRANES INSPECTOR Reason for Visit * Outpatient (Routine) - Closed Specialty Diagnoses / Procedures Referred By Diamond montemayor Referred To Contact Nutrition Diagnoses Malignant Neoplasm Of Tonsil (HCC) Lauren Hernandez M.D. [address] [place] [phone] [facility] Referral ID Status Reason Start Date Expiration Date Visits Re quested Visits Authorized [id number] Closed 04/29/2023 04/28/2024 1 1 Encounter Details Date Type Department Care Team (Latest Contact Info) Description 05/05/2023 8:00 AM LIFTS AND CRANES INSPECTOR Clinical Support Department of Nutrition and Diabetes Education in [place], [place] [address] [place] [phone] Lauren Hernandez M.D. [address] [place] [phone] Tanvi Zarate, RDN, LD [address] [place] [phone] Oly Mendez M.S., RDN, LD [address] [place] [phone] Gastrostomy Status (HCC) (Primary Dx); Malignant Neoplasm [...] your living situation today? [facility] 03/01/2023 Sex and Gender Information Value Date Recorded Sex Assigned at Male 03/01/2023 1:25 PM LIFTS AND CRANES INSPECTOR Gender Identity Male 03/01/2023 1:25 PM LIFTS AND CRANES INSPECTOR Sexual Orientation Not on file documented as of this encounter Last Filed Vital Signs Vital Sign Reading Time Taken Comments Blood Pressure - - Pulse - - Temperature - - Respiratory Rate - - Oxygen Saturation - - Inhaled Oxygen Concentration - - Weight 108 kg (237 lb 10.5 oz) 05/05/2023 7:52 A M LIFTS AND CRANES INSPECTOR Height 170.4 cm (5' 7.09) 05/05/2023 7:52 AM CS T Body Mass Index 37.13 05/05/2023 7:52 AM LIFTS AND CRANES INSPECTOR documented in this encounter Progress Notes * [...] Relevant Social and Family History Resides in [place]. Receiving treatment in [place]. Medical Tests and Procedures/Biochemical Data VFSS (03/09/23): [...] Information Feeding tube type/ tip location: 16 Qatari G- tube Avanos placed on 05/04/23 Suggested [...] 108 kg. Estimation of Nutritional Needs Calories: 3321-8958 kcals/day ([place] [address] Jeor - x1.39 activity factor given [...] Nutrition Prescription/Recommendation Formula Type: 4 cartons Boost [facility] daily Infusion Schedule: 2-1-1 or 1-1-1-1 [...] that will provide needed supplies for home: [employer]. Indication for Ongoing Enteral Nutrition #1 Malignant [...] Patient is followed in [facility]: RD will call to ensure patient is at goal tubefeeding in 1-2 weeks. Time spent with patient (minutes): 45 S AND CRANES INSPECTOR documented in this encounter Plan of Treatment Upcoming Encounters Date Type Department Care Team (Late st Contact Info) Description 05/08/2023 8:00 AM LIFTS AND CRANES INSPECTOR Appointment Department of Radiation Oncology in [address] [phone] Lauren Hernandez M.D. [address] [place] [phone] 05/11/2023 8:15 AM LIFTS AND CRANES INSPECTOR Appointment Department of Radiation Oncology in [address] [phone] Lauren Hernandez M.D. [address] [place] [address], [place] [phone] Scheduled Referrals Name Type Priority Associated Diagnoses Order Schedule Endocrinology - Home enteral medical nutrition therapy consult (clinic) Outpatient Referral Routine Gastrostomy Status (HCC) Expected: 05/05/2023, Expires: 08/03/2024 documented as of this encounter Results * IR Gastrostomy Tube Check (05/05/2023 10:36 AM LIFTS AND CRANES INSPECTOR) Anatomical Region Laterality Modality Abdomen, Vascular Interventi onal RST LOS, Vascular Interventional FLA LOS N/A X-Ray Angiography Impressions 05/05/2023 11:03 AM LIFTS AND CRANES INSPECTOR Appropriate position and function of the 16 Qatari gastrostomy tube placed yesterday. No leakage of contrast into the peritoneal cavity. No definitive fluoroscopic explanation for the patient's abdominal pain. EP Narrative 05/05/2023 11:03 AM LIFTS AND CRANES INSPECTOR EXAM: IR GASTROSTOMY TUBE CHECK CLINICAL HISTORY: 68-year-old male with abdominal pain after G-tube placement yesterday. Presents for G-tube check. TECHNIQUE: The patient was positioned supine on the fluoroscopy table. Ladle Repairer image of the abdomen demonstrates contrast in [...] patient was positioned supine on the fluoroscopy table.Ladle Repairer image of the abdomen demonstrates contrast in [...] Appropriate position and function of the 16 Qatari gastrostomy tube placedyesterday. No leakage of contrast into the peritoneal cavity. Nodefinitive fluoroscopic explanation for the patient's abdominal pain. EP Kelly Peter APRN, C.N.P., D.N.P. IMG I R PROCEDURES documented in this encounter Visit Diagnoses Diagnosis Gastrostomy Status (HCC)- Primary Malignant Neoplasm Of Tonsil (HCC) Gastrostomy Status (HCC) documented in this encounter
--- OUTSIDE RECORDS SUMMARY | 2023-05-07 10:58 | XMS_ITS | Encounter Summary ---
Author Name Unknown Organization [facility] Address [address] [place] [address] Care Team Providers Care Intellectual Property Counsel Name Role Phone Unavailable Primary Care Provider Unavailabl e Reason for Visit * Radiation Therapy (Routine) - Authorized Specialty Diagnoses / Procedures Referred By Contac t Referred To Contact Diagnoses Malignant Neoplasm Of Oropharynx (HCC) Procedures Prior Auth Rad Tx [place] IMRT COMPLEX IMRT Lauren Hernandez M.D. [address] [place] [phone] [facility] Radiation Oncology at [place] [address] [place] [phone] Referral ID Status Reason Start Date Expiration Date V isits Requested Visits Authorized [id number] Authorized 03/23/2023 03/11/2024 35 35 Encounter Details Date Type Department Care Team (Late st Contact Info) Description 05/06/2023 7:52 AM [facility] Hospital Encounter Department of Radiation Oncology in [place], [place] [address] [place] [phone] Lauren Hernandez M.D. [address] [place] [phone] Social History Tobacco Use Types Packs/Day Years [...] your living situation today? I have a [facility] place to live 03/01/2023 Sex and Gender Information Value Date Recorded Sex Assigned at Male 03/01/2023 1:[address] REFEREE Gender Identity Male 03/01/2023 1:[address] REFEREE Sexual Orientation Not on file documented as of this encounter Plan of Treatment Upcoming Encounters Date Type Department Care Team (Late st Contact Info) Description 05/08/2023 8:[address] REFEREE Appointment Department of Radiation Oncology in [place], [place] [address] [place] [phone] Lauren Hernandez M.D. 200 [place] [phone] 05/11/2023 8:[address] REFEREE Appointment Department of Radiation Oncology in [place], [place] [address] [place] [address] Lauren Hernandez M.D. [address] [place] [phone] documented as of this encounter Visit Diagnoses Not on filedocumented in this encounter
--- OUTSIDE RECORDS SUMMARY | 2023-05-07 10:58 | XMS_ITS | Encounter Summary ---
Author Name Unknown Organization [facility] Address [address] [place] [address] Care Team Providers Care Repairer And Checker Name Role Phone Unavailable Primary Care Provider Unavailabl e Reason for Visit * Outpatient (Routine) - Closed Specialty Diagnoses / Procedures Referred By Diamond t Referred To Contact Endocrinology Diagnoses Malignant Neoplasm Of Tonsil (HCC) Dietary Counseling And Surveillance For Enteral Nutrition Kendra Tinsley APRN, C.N.P. [address] [place] [phone] [facility] Referral ID Status Reason Start Date Expiration Date Visits Re quested Visits Authorized [id number] Closed 05/01/2023 04/30/2026 1 1 Encounter Details Date Type Department Care Team (Latest Contact Info) Description 05/07/2023 10:00 AM FISH FLIPPER Virtual Visit Division of Endocrinology in [place], [place] [address] [place] [phone] Kendra Tinsley APRN, C.N.P. [address] [place] [phone] Kelly Peter APRN, C.N.P., D.N.P. [address] [place] [phone] Malignant Neoplasm Of Tonsil (HCC); Dietary Counseling And Surveillance For Enteral Nutrition Social History Tobacco Use Types Packs/Day Years [...] your living situation today? I have a [facility] place to live 03/01/2023 Sex and Gender Information Value Date Recorded Sex Assigned at Male 03/01/2023 1:25 PM FISH FLIPPER Gender Identity Male 03/01/2023 1:25 PM FISH FLIPPER Sexual Orientation Not on file documented as of this encounter Plan of Treatment Upcoming Encounters Date Type Department Care Team (Late st Contact Info) Description 05/08/2023 8:00 AM FISH FLIPPER Appointment Department of Radiation Oncology in [place], [place] [address] [place] [phone] Lauren Hernandez M.D. 200 [place] [phone] 05/11/2023 8:15 AM FISH FLIPPER Appointment Department of Radiation Oncology in [place], [place] 182 [place] [phone] Lauren Hernandez M.D. 200 [place] [phone] documented as of this encounter Visit Diagnoses Diagnosis Malignant Neoplasm Of Tonsil (HCC) Dietary Counseling And Surveillance For Enteral Nutrition documented in this encounter
--- OUTSIDE RECORDS SUMMARY | 2023-05-07 10:59 | XMS_ITS | Encounter Summary ---
Author Name Unknown Organization [facility] Address [address] [place] [address] Care Team Providers Care Homicide Squad Captain Name Role Phone Unavailable Primary Care Provider Unavailabl e Reason for Visit * Reason Comments Feeding Tube Encounter Details Date Type Department Care Team (Latest Contact Info) Description 05/01/2023 1:00 PM WEB SIZER Clinical Support Division of Endocrinology in [place], [place] [address] [place] [phone] Lauren Hernandez M.D. [address] [place] [phone] Nannette Leal, R.N. Malignant Neoplasm Of Tonsil [...] living situation today? I have a [facility] place to live 03/01/2023 Sex and Gender Information Value Date Recorded Sex Assigned at Male 03/01/2023 1:25 PM WEB SIZER Gender Identity Male 03/01/2023 1:25 PM WEB SIZER Sexual Orientation Not on file documented as [...] Date: 05/04/2023, Time: 11:30 am, and Location: IR[facility]. Tube education provided: IR: Balloon tube demonstrated/discussed [...] scheduled? Yes; Date 05/05/2023 at 7:45 am SIZER documented in this encounter Plan of Treatment Upcoming Encounters Date Type Department Care Team (Late st Contact Info) Description 05/08/2023 8:00 AM WEB SIZER Appointment Department of Radiation Oncology in [place], [place] [address] [place] [phone] Lauren Hernandez M.D. [address] [place] [phone] 05/11/2023 8:15 AM WEB SIZER Appointment Department of Radiation Oncology in [place], [place] [address] [place] [phone] Lauren Hernandez M.D. [address] [place] [phone] documented as of this encounter Visit Diagnoses Diagnosis Malignant Neoplasm Of Tonsil (HCC) documented in this encounter
--- OUTSIDE RECORDS SUMMARY | 2023-05-07 10:59 | XMS_ITS | Encounter Summary ---
Author Name Unknown Organization [facility] Address [address] [place] [address] Care Team Providers Care Reception Agent Name Role Phone Unavailable Primary Care Provider Unavailabl e Encounter Details Date Type Department Care Team (Late st Contact Info) Description 04/30/2023 Clinical Communication Division of General Internal Medicine in [place], [place] [address] [place] [phone] Jihan Rivas, R.N. [address] [place] [address] Social History Tobacco Use Types Packs/Day Years [...] your living situation today? I have a [facility] place to live 03/01/2023 Sex and Gender Information Value Date Recorded Sex Assigned at Male 03/01/2023 1:25 PM JUVENILE JUSTICE SPECIALIST Gender Identity Male 03/01/2023 1:25 PM JUVENILE JUSTICE SPECIALIST Sexual Orientation Not on file documented as of this encounter Miscellaneous Notes * Telephone Encounter - Jihan Rivas R.N. - 04/30/2023 10:41 AM JUVENILE JUSTICE SPECIALIST ----- Message from Ramandeep Sanz R.N. sent at 04/30/2023 8:41 AM JUVENILE JUSTICE SPECIALIST ----- Regarding: RE: Sinan Franky! Just spoke with Tad this morning and the last dose of his Xarelto that he took was on so he should be good for his procedure on Thursday. Thanks! [facility] [place] ----- Message ----- From: Lauren Hernandez M.D. Sent: 04/29/2023 5:01 PM JUVENILE JUSTICE SPECIALIST To: Ramandeep Sanz R.N.; # Subject: RE: Xarelto Nevermind! It's been moved up. We will call him tomorrow and tell him to stop 4 days before the procedure!!! THANK YOU!!!! ----- Message ----- From: Jihan Rivas R.N. Sent: 04/29/2023 4:11 PM JUVENILE JUSTICE SPECIALIST To: Lauren Hernandez M.D. Subject: Xarelto Hi Dr. Hernandez, We received your order for G tube placement on Mr. Roland. It looks like he is taking Xarelto, is heable to hold this for 4 days prior to the tube placement? Thank you, Jihan Rivas RN [place] [facility] Team [phone] NILE JUSTICE SPECIALIST documented in this encounter Plan of Treatment Upcoming Encounters Date Type Department Care Team (Late st Contact Info) Description 05/08/2023 8:00 AM JUVENILE JUSTICE SPECIALIST Appointment Department of Radiation Oncology in [address] [phone] Lauren Hernandez M.D. [address] [place] [phone] 05/11/2023 8:15 AM JUVENILE JUSTICE SPECIALIST Appointment Department of Radiation Oncology in [place], [place] [address] [place] [phone] Lauren Hernandez M.D. [address] [place] [address] documented as of this encounter Visit Diagnoses Not on filedocumented in this encounter
--- OUTSIDE RECORDS SUMMARY | 2023-05-07 10:59 | XMS_ITS | Encounter Summary ---
Author Name Unknown Organization [facility] Address [address] [place] [address] Care Team Providers Care Clerical Aide Name Role Phone Unavailable Primary Care Provider Unavailabl e Reason for Visit * Radiation Therapy (Routine) - Authorized Specialty Diagnoses / Procedures Referred By Contac t Referred To Contact Diagnoses Malignant Neoplasm Of Oropharynx (HCC) Procedures Prior Auth Rad Tx [place] IMRT COMPLEX IMRT Lauren Hernandez M.D. [address] [place] [phone] [facility] Radiation Oncology at [place] [address] [place] [phone] Referral ID Status Reason Start Date Expiration Date V isits Requested Visits Authorized [id number] Authorized 03/23/2023 03/11/2024 35 35 Encounter Details Date Type Department Care Team (Late st Contact Info) Description 04/29/2023 7:47 AM [facility] Hospital Encounter Department of Radiation Oncology in [place], [place] [address] [place] [phone] Lauren Hernandez M.D. [address] [place] [phone] Social History Tobacco Use Types Packs/Day Years [...] Assigned at Male 03/01/2023 1:25 PM BODY PAINTER Gender Identity Male 03/01/2023 1:25 PM BODY PAINTER Sexual Orientation Not on file documented as of this encounter Plan of Treatment Upcoming Encounters Date Type Department Care Team (Late st Contact Info) Description 05/08/2023 8:00 AM BODY PAINTER Appointment Department of Radiation Oncology in [place], [place] [address] [place] [phone] Lauren Hernandez M.D. 200 [place] [phone] 05/11/2023 8:15 AM BODY PAINTER Appointment Department of Radiation Oncology in [place], [place] [address] [place] [phone] Lauren Hernandez M.D. [address] [place] [address] documented as of this encounter Visit Diagnoses Not on filedocumented in this encounter
--- OUTSIDE RECORDS SUMMARY | 2023-05-07 10:59 | XMS_ITS | Encounter Summary ---
Author Name Unknown Organization [facility] Address [address] [place] [address] Care Team Providers Care Explosive Ordnance Specialist Name Role Phone Unavailable Primary Care Provider Unavailabl e Encounter Details Date Type Department Care Team (Late st Contact Info) Description 04/30/2023 Clinical Communication Department of Radiation Oncology in [place], [place] [address] [place] [phone] Ramandeep Sanz, RJurgen [address] [place] [phone] Social History Tobacco Use Types Packs/Day Years [...] Sex Assigned at Male 03/01/2023 1:25 PM JAVA SQL DEVELOPER Gender Identity Male 03/01/2023 1:25 PM JAVA SQL DEVELOPER Sexual Orientation Not on file documented as of this encounter Miscellaneous Notes * Telephone Encounter - Ramandeep Sanz R.N. - 04/30/2023 9:03 AM JAVA SQL DEVELOPER Information Discussed Called patient to let him [...] upcoming appointments and PEG tube placement in [place] on Monday, May 01, 2023. He knows [...] days prior to his tube feeding placement. SQL DEVELOPER documented in this encounter Plan of Treatment Upcoming Encounters Date Type Department Care Team (Late st Contact Info) Description 05/08/2023 8:00 AM JAVA SQL DEVELOPER Appointment Department of Radiation Oncology in [place], [place] [address] [place] [phone] Lauren Hernandez M.D. [address] [place] [phone] 05/11/2023 8:15 AM JAVA SQL DEVELOPER Appointment Department of Radiation Oncology in [place], [place] [address] [place] [address] Lauren Hernandez M.D. [address] [place] [phone] documented as of this encounter Visit Diagnoses Not on filedocumented in this encounter
--- OUTSIDE RECORDS SUMMARY | 2023-05-07 10:59 | XMS_ITS | Encounter Summary ---
Author Name Unknown Organization [facility] Address [address] [place] [address] Care Team Providers Care Photographic Platemaker Name Role Phone Unavailable Primary Care Provider Unavailabl e Reason for Referral * Outpatient (Routine) - Closed Specialty Diagnoses / Procedures Referred By Diamond montemayor Referred To Contact Radiology Diagnoses Malignant Neoplasm Of Tonsil (HCC) Procedures IR Gastrostomy Tube Placement Lauren Hernandez M.D. 200 [place] [address] [facility] Referral ID Status Reason Start Date Expiration Date Visits Re quested Visits Authorized [id number] Closed 04/29/2023 04/28/2024 1 1 N ROOM WORKER * Outpatient (Routine) - Closed Specialty Diagnoses / Procedures Referred By Diamond montemayor Referred To Contact Nutrition Diagnoses Malignant Neoplasm Of Tonsil (HCC) Lauren Hernandez M.D. 200 [place] [phone] [facility] Referral ID Status Reason Start Date Expiration Date Visits Re quested Visits Authorized [id number] Closed 04/29/2023 04/28/2024 1 1 Scheduling Instructions Post - Placement N ROOM WORKER * Specialty Diagnoses / Procedures Referred By Diamond montemayor Referred To Contact Lauren Hernandez M.D. 200 [place] [address] [facility] Referral ID Status Reason Start Date Expiration Date Visits Re quested Visits Authorized N ROOM WORKER * Outpatient (Routine) - Closed Specialty Diagnoses / Procedures Referred By Contac t Referred To Contact Nutrition Diagnoses Malignant Neoplasm Of Tonsil (HCC) [place] [phone] [facility] Referral ID Status Reason Start Date Expiration Date Visits Re quested Visits Authorized [id number] Closed 04/29/2023 04/28/2024 1 1 Scheduling Instructions Pre-Placement N ROOM WORKER * Outpatient (Routine) - Closed Specialty Diagnoses / Procedures Referred By Diamond montemayor Referred To Contact Endocrinology Diagnoses Malignant Neoplasm Of Tonsil (HCC) [place] [phone] [facility] Referral ID Status Reason Start Date Expiration Date Visits Re quested Visits Authorized [id number] Closed 04/29/2023 04/28/2024 1 1 N ROOM WORKER * Specialty Diagnoses / Procedures Referred By Diamond montemayor Referred To Contact [place] [address] [facility] Referral ID Status Reason Start Date Expiration Date Visits Re quested Visits Authorized N ROOM WORKER * Radiation Therapy (Routine) - Authorized Specialty Diagnoses / Procedures Referred By Diamond montemayor Referred To Contact Diagnoses Malignant Neoplasm Of Oropharynx (HCC) Procedures Management [place] [address] [facility] Region Referral ID Status Reason Start Date Expiration Date V isits Requested Visits Authorized [id number] Authorized 03/12/2023 03/11/2024 10 10 N ROOM WORKER Reason for Visit * Radiation Therapy (Routine) - Authorized Specialty Diagnoses / Procedures Referred By Diamond t Referred To Contact Diagnoses Malignant Neoplasm Of Oropharynx (HCC) Procedures Management Visit Lauren Hernandez M.D. [address] [place] [address] [facility] Region Referral ID Status Reason Start Date Expiration Date V isits Requested Visits Authorized [id number] Authorized 03/12/2023 03/11/2024 10 10 Encounter Details Date Type Department Care Team (Latest Contact Info) Description 04/29/2023 7:47 AM LINEN ROOM WORKER - 04/29/2023 12:51 PM LINEN ROOM WORKER Hospital Encounter Department of Radiation Oncology in [place], [place] [address] [place] [address] Lauren Hernandez M.D. [address] [place] [address] Malignant Neoplasm Of Tonsil (HCC) (Primary Dx); [...] your living situation today? I have a [facility] place to live 03/01/2023 Sex and Gender Information Value Date Recorded Sex Assigned at Male 03/01/2023 1:25 PM LINEN ROOM WORKER Gender Identity Male 03/01/2023 1:25 PM LINEN ROOM WORKER Sexual Orientation Not on file documented as of this encounter Last Filed Vital Signs Vital Sign Reading Time Taken Comments Blood Pressure 123/70 04/29/2023 8:30 AM LINEN ROOM WORKER Pulse 61 04/29/2023 8:30 AM LINEN ROOM WORKER Temperature 36.3 ??C (97.4 ??F) 04/29/2023 8:30 AM CS T Respiratory Rate - - Oxygen Saturation - - Inhaled Oxygen Concentration - - Weight 111 kg (245 lb 2.4 oz) 04/29/2023 8:30 AM LINEN ROOM WORKER Height - - Body Mass Index 38.48 03/26/2023 9:06 AM LINEN ROOM WORKER documented in this encounter Medications at Time [...] under the care of Dr. Wu at [facility]. Treatment Course: 1xOpx Plan ID Fractions [...] has a standing IV fluid order for [facility] and reports that he is [...] to have a tube feeding placed in [place] as soon as possible. Encouraged patient to continue to take in 3-4 High Calorie Boost Daily and whatever other soft foods he can tolerate. Encourage patient do due IV fluids at [facility] as needed. Patient was amenable [...] by: Ramandeep Sanz R.N. 04/29/2023 8:21 AM LINEN ROOM WORKER N ROOM WORKER documented in this encounter Plan of Treatment Upcoming Encounters Date Type Department Care Team (Late st Contact Info) Description 05/08/2023 8:00 AM LINEN ROOM WORKER Appointment Department of Radiation Oncology in [address] [phone] Lauren Hernandez M.D. [address] [place] [phone] 05/11/2023 8:15 AM LINEN ROOM WORKER Appointment Department of Radiation Oncology in [address] [phone] Lauren Hernandez M.D. [address] [place] [phone] Scheduled Orders Name Type Priority Associated Diagnoses [...] IR Gastrostomy Tube Placement (05/04/2023 1:35 PM LINEN ROOM WORKER) Anatomical Region Laterality Modality Abdomen, Vascular Interventi onal RST LOS, Vascular Interventional ARZ LOS, Vascular Interventional FLA LOS N/A X-Ray Angiography Impressions 05/04/2023 2:06 PM LINEN ROOM WORKER Placement of a 16 Eritrean percutaneous gastrostomy tube. Nothing by mouth or tube for 2 hours (strict). Then use of mouth or tube for water, medications, and/or tube feeds per Nutrition note/order. Exchange tube in 3-5 months. Contact the [facility] at [phone] to schedule the tube exchange. 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 Pre-Procedure Diagnosis: Cancer. Indication: Feeding. TECHNIQUE: The patient was placed supine on the fluoroscopy table. Under fluoroscopic guidance, a 4 Eritrean catheter was placed as a nasogastric tube. [...] confirmed with a small contrast injection. 4 Eritrean catheter and Glidewire were advanced into the [...] applied. No immediate complication. Tube Type: Gastrostomy, manzanita. Tube Connection: ENFit. Tube Size: 16 Eritrean. Low Profile: No. Disc Height: 5 cm. [...] the fluoroscopy table. Underfluoroscopic guidance, a 4 Eritrean catheter was placed as a nasogastrictube. The [...] confirmed with a small contrast injection. 4 Eritrean catheter andGlidewire were advanced into the duodenum [...] applied. No immediate complication. Tube Type: Gastrostomy, manzanita. Tube Connection: ENFit. Tube Size: 16 Eritrean. Low Profile: No. Disc Height: 5 cm. [...] by Anesthesiology. IMPRESSION: Placement of a 16 Eritrean percutaneous gastrostomy tube. Nothing by mouthor tube for 2 hours (strict). Then use of mouth or tube for water,medications, and/or tube feeds per Nutrition note/order. Exchange tube in3-5 months. Contact the [facility] clinic at [phone] to schedule the tube exchange. 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
--- OUTSIDE RECORDS SUMMARY | 2023-05-07 10:59 | XMS_ITS | Encounter Summary ---
Author Name Unknown Organization [facility] Address [address] [place] [address] Care Team Providers Care Crane Hoist Or Lift Operator Name Role Phone Unavailable Primary Care Provider Unavailabl e Reason for Visit * Radiation Therapy (Routine) - Authorized Specialty Diagnoses / Procedures Referred By Contac t Referred To Contact Diagnoses Malignant Neoplasm Of Oropharynx (HCC) Procedures Prior Auth Rad Tx [place] IMRT COMPLEX IMRT Lauren Hernandez M.D. [address] [place] [phone] [facility] Radiation Oncology at [place] [address] [place] [phone] Referral ID Status Reason Start Date Expiration Date V isits Requested Visits Authorized [id number] Authorized 03/23/2023 03/11/2024 35 35 Encounter Details Date Type Department Care Team (Late st Contact Info) Description 04/28/2023 7:53 AM [facility] Hospital Encounter Department of Radiation Oncology in [place], [place] [address] [place] [phone] Lauren Hernandez M.D. [address] [place] [phone] Social History Tobacco Use Types Packs/Day Years [...] your living situation today? I have a [facility] place to live 03/01/2023 Sex and Gender Information Value Date Recorded Sex Assigned at Male 03/01/2023 1:25 PM CARPENTRY TEACHER Gender Identity Male 03/01/2023 1:25 PM CARPENTRY TEACHER Sexual Orientation Not on file documented as of this encounter Plan of Treatment Upcoming Encounters Date Type Department Care Team (Late st Contact Info) Description 05/08/2023 8:00 AM CARPENTRY TEACHER Appointment Department of Radiation Oncology in [place], [place] [address] [place] [phone] Lauren Hernandez M.D. 200 [place] [phone] 05/11/2023 8:15 AM CARPENTRY TEACHER Appointment Department of Radiation Oncology in [place], [place] [address] [place] [address] Lauren Hernandez M.D. [address] [place] [phone] documented as of this encounter Visit Diagnoses Not on filedocumented in this encounter
--- OUTSIDE RECORDS SUMMARY | 2023-05-07 10:59 | XMS_ITS | Encounter Summary ---
Author Name Unknown Organization [facility] Address [address] [place] [address] Care Team Providers Care Round Kiln Drawer Name Role Phone Unavailable Primary Care Provider Unavailabl e Encounter Details Date Type Department Care Team (Latest Contact Info) Description 04/29/2023 Clinical Communication Division of Endocrinology in [place], [place] [address] [place] [phone] Provider, Unknown Social History Tobacco Use Types [...] your living situation today? I have a [facility] place to live 03/01/2023 Sex and Gender Information Value Date Recorded Sex Assigned at Male 03/01/2023 1:25 PM CONFERENCE INTERPRETER Gender Identity Male 03/01/2023 1:25 PM CONFERENCE INTERPRETER Sexual Orientation Not on file documented as of this encounter Plan of Treatment Upcoming Encounters Date Type Department Care Team (Late st Contact Info) Description 05/08/2023 8:00 AM CONFERENCE INTERPRETER Appointment Department of Radiation Oncology in [address] [phone] Lauren Hernandez M.D. [address] [place] [phone] 05/11/2023 8:15 AM CONFERENCE INTERPRETER Appointment Department of Radiation Oncology in [address] [phone] Lauren Hernandez M.D. 200 [place] [address] documented as of this encounter Visit Diagnoses Not on filedocumented in this encounter
--- OUTSIDE RECORDS SUMMARY | 2023-05-07 10:59 | XMS_ITS | Encounter Summary ---
Author Name Unknown Organization [facility] Address [address] [place] [address] Care Team Providers Care Holistic Pulser Name Role Phone Unavailable Primary Care Provider Unavailabl e Reason for Visit * Reason Comments Scheduling Encounter Details Date Type Department Care Team ([facility] st Contact Info) Description 04/29/2023 Documentation Division of General Internal Medicine in [place], [place] [address] [place] [phone] Jihan Rivas, RFcoN. [address] [place] [phone] Scheduling Social History Tobacco Use Types Packs/Day [...] living situation today? I have a [facility] place to live 03/01/2023 Sex and Gender Information Value Date Recorded Sex Assigned at Male 03/01/2023 1:25 PM TRAVEL CONSULTANT Gender Identity Male 03/01/2023 1:25 PM TRAVEL CONSULTANT Sexual Orientation Not on file documented as [...] the patient currently taking any anticoagulation medication? Xareltha listed on his medication list from 5 [...] pt has been holding Xarelto since 04/28/2023. EL CONSULTANT documented in this encounter Plan of Treatment Upcoming Encounters Date Type Department Care Team (Late st Contact Info) Description 05/08/2023 8:00 AM TRAVEL CONSULTANT Appointment Department of Radiation Oncology in [place], [place] [address] [place] [address] Lauren Hernandez M.D. 200 [place] [phone] 05/11/2023 8:15 AM TRAVEL CONSULTANT Appointment Department of Radiation Oncology in [place], [place] [address] [place] [address] Lauren Hernandez M.D. 200 [place] [address] documented as of this encounter Visit Diagnoses Not on filedocumented in this encounter
--- OUTSIDE RECORDS SUMMARY | 2023-05-07 10:59 | XMS_ITS | Encounter Summary ---
Author Name Unknown Organization [facility] Address [address] [place] [address] Care Team Providers Care Motor Equipment Commanding Officer Name Role Phone Unavailable Primary Care Provider Unavailabl e Reason for Visit * Radiation Therapy (Routine) - Authorized Specialty Diagnoses / Procedures Referred By Contac t Referred To Contact Diagnoses Malignant Neoplasm Of Oropharynx (HCC) Procedures Prior Auth Rad Tx [place] IMRT COMPLEX IMRT Lauren Hernandez M.D. [address] [place] [phone] [facility] Radiation Oncology at [place] [address] [place] [phone] Referral ID Status Reason Start Date Expiration Date V isits Requested Visits Authorized [id number] Authorized 03/23/2023 03/11/2024 35 35 Encounter Details Date Type Department Care Team (Late st Contact Info) Description 05/01/2023 7:46 AM [facility] Hospital Encounter Department of Radiation Oncology in [place], [place] [address] [place] [phone] Lauren Hernandez M.D. [address] [place] [phone] Social History Tobacco Use Types Packs/Day Years [...] Sex Assigned at Male 03/01/2023 1:25 PM APPRAISER ART Gender Identity Male 03/01/2023 1:25 PM APPRAISER ART Sexual Orientation Not on file documented as of this encounter Plan of Treatment Upcoming Encounters Date Type Department Care Team (Late st Contact Info) Description 05/08/2023 8:00 AM APPRAISER ART Appointment Department of Radiation Oncology in [place], [place] [address] [place] [phone] Lauren Hernandez M.D. 200 [place] [address] 05/11/2023 8:15 AM APPRAISER ART Appointment Department of Radiation Oncology in [place], [place] [address] [place] [address] Lauren Hernandez M.D. [address] [place] [address] documented as of this encounter Visit Diagnoses Not on filedocumented in this encounter
--- OUTSIDE RECORDS SUMMARY | 2023-05-07 10:59 | XMS_ITS | Encounter Summary ---
Author Name Unknown Organization [facility] Address [address] [place] [address] Care Team Providers Care Toll Booth Operator Name Role Phone Unavailable Primary Care Provider Unavailabl e Reason for Visit * Radiation Therapy (Routine) - Authorized Specialty Diagnoses / Procedures Referred By Contac t Referred To Contact Diagnoses Malignant Neoplasm Of Oropharynx (HCC) Procedures Prior Auth Rad Tx [place] IMRT COMPLEX IMRT Lauren Hernandez M.D. [address] [place] [phone] [facility] Radiation Oncology at [place] [address] [place] [phone] Referral ID Status Reason Start Date Expiration Date V isits Requested Visits Authorized [id number] Authorized 03/23/2023 03/11/2024 35 35 Encounter Details Date Type Department Care Team (Late st Contact Info) Description 04/30/2023 7:50 AM [facility] Hospital Encounter Department of Radiation Oncology in [place], [place] [address] [place] [phone] Lauren Hernandez M.D. [address] [place] [phone] Social History Tobacco Use Types Packs/Day Years [...] your living situation today? [facility] have a [facility] place [facility] 03/01/2023 Sex and Gender Information Value Date Recorded Sex Assigned at Male 03/01/2023 1:25 PM ORTHOPEDIC MECHANIC Gender Identity Male 03/01/2023 1:25 PM ORTHOPEDIC MECHANIC Sexual Orientation Not on file documented as of this encounter Plan of Treatment Upcoming Encounters Date Type Department Care Team (Late st Contact Info) Description 05/08/2023 8:00 AM ORTHOPEDIC MECHANIC Appointment Department of Radiation Oncology in [place], [place] [address] [place] [phone] Lauren Hernandez M.D. 200 [place] [address] 05/11/2023 8:15 AM ORTHOPEDIC MECHANIC Appointment Department of Radiation Oncology in [place], [place] [address] [place] [address] Lauren Hernandez M.D. [address] [place] [address] documented as of this encounter Visit Diagnoses Not on filedocumented in this encounter
--- OUTSIDE RECORDS SUMMARY | 2023-05-07 10:59 | XMS_ITS | Encounter Summary ---
Author Name Unknown Organization [facility] Address [address] [place] [address] Care Team Providers Care Joint Machine Operator Name Role Phone Unavailable Primary Care Provider Unavailabl e Reason for Visit * Reason Onset Date Comments Procedure 04/29/2023 G tube placement Encounter Details Date Type Department Care Team (Latest Contact Info) Description 04/29/2023 Clinical Communication Department of Radiology in [place], [place] [address] [place] [phone] Tony Lujan, R.N. [address] [place] [phone] Procedure (G tube placement) Social History Tobacco [...] your living situation today? I have a [facility] place to live 03/01/2023 Sex and Gender Information Value Date Recorded Sex Assigned at Male 03/01/2023 1:25 PM EQUAL OPPORTUNITY COUNSELOR Gender Identity Male 03/01/2023 1:25 PM EQUAL OPPORTUNITY COUNSELOR Sexual Orientation Not on file documented as of this encounter Miscellaneous Notes * Telephone Encounter - Tony Lujan, R.N. - 04/29/2023 3:56 PM EQUAL OPPORTUNITY COUNSELOR We received a request from the HEN team to schedule Mr. Roland for a G tube placement. We have the patient scheduled to undergo this procedure with Dr. Chaudhry at [facility], Main floor Moreno Ortiz MD on 05/04/2023 [...] to the procedure. Order is in place. L OPPORTUNITY COUNSELOR documented in this encounter Plan of Treatment Upcoming Encounters Date Type Department Care Team (Late st Contact Info) Description 05/08/2023 8:00 AM EQUAL OPPORTUNITY COUNSELOR Appointment Department of Radiation Oncology in [place], [place] [address] [place] [address] Lauren Hernandez M.D. [address] [place] [phone] 05/11/2023 8:15 AM EQUAL OPPORTUNITY COUNSELOR Appointment Department of Radiation Oncology in [place], [place] [address] [place] [address] Lauren Hernandez M.D. 200 [place] [address] documented as of this encounter Visit Diagnoses Not on filedocumented in this encounter
--- OUTSIDE RECORDS SUMMARY | 2023-05-07 10:59 | XMS_ITS | Encounter Summary ---
Author Name Unknown Organization [facility] Address [address] [place] [address] Care Team Providers Care Oxyacetylene Welder Name Role Phone Unavailable Primary Care Provider Unavailabl e Reason for Visit * Radiation Therapy (Routine) - Authorized Specialty Diagnoses / Procedures Referred By Contac t Referred To Contact Diagnoses Malignant Neoplasm Of Oropharynx (HCC) Procedures Prior Auth Rad Tx [place] IMRT COMPLEX IMRT Lauren Hernandez M.D. [address] [place] [phone] [facility] Radiation Oncology at [place] [address] [place] [phone] Referral ID Status Reason Start Date Expiration Date V isits Requested Visits Authorized [id number] Authorized 03/23/2023 03/11/2024 35 35 Encounter Details Date Type Department Care Team (Late st Contact Info) Description 05/04/2023 7:50 AM [facility] Hospital Encounter Department of Radiation Oncology in [place], [place] [address] [place] [phone] Lauren Hernandez M.D. [address] [place] [phone] Social History Tobacco Use Types Packs/Day Years [...] your living situation today? I have a [facility] place to live 03/01/2023 Sex and Gender Information Value Date Recorded Sex Assigned at Male 03/01/2023 1:[address] USHER Gender Identity Male 03/01/2023 1:[address] USHER Sexual Orientation Not on file documented as of this encounter Plan of Treatment Upcoming Encounters Date Type Department Care Team (Late st Contact Info) Description 05/08/2023 8:[address] USHER Appointment Department of Radiation Oncology in [place], [place] [address] [place] [phone] Lauren Hernandez M.D. 200 [place] [address] 05/11/2023 8:[address] USHER Appointment Department of Radiation Oncology in [place], [place] [address] [place] [address] Lauren Hernandez M.D. [address] [place] [address] documented as of this encounter Visit Diagnoses Not on filedocumented in this encounter
--- OUTSIDE RECORDS SUMMARY | 2023-05-07 10:59 | XMS_ITS | Encounter Summary ---
Author Name Unknown Organization [facility] Address [address] [place] [address] Care Team Providers Care Consulting Sme Name Role Phone Unavailable Primary Care Provider Unavailabl e Reason for Visit * Outpatient (Routine) - Closed Specialty Diagnoses / Procedures Referred By Diamond t Referred To Contact Nutrition Diagnoses Malignant Neoplasm Of Tonsil (HCC) Lauren Hernandez M.D. [address] [place] [phone] [facility] Referral ID Status Reason Start Date Expiration Date Visits Re quested Visits Authorized [id number] Closed 04/29/2023 04/28/2024 1 1 Encounter Details Date Type Department Care Team (Latest Contact Info) Description 05/01/2023 11:00 AM POWER PLANT OPERATOR Clinical Support Department of Nutrition and Diabetes Education in [place], [place] [address] [place] [phone] Lauren Hernandez M.D. [address] [place] [phone] Eduarda Rosas M.S., RDN, LD [address] [place] [phone] Malignant Neoplasm Of Oropharynx (HCC) (Primary Dx); [...] Sex Assigned at Male 03/01/2023 1:25 PM POWER PLANT OPERATOR Gender Identity Male 03/01/2023 1:25 PM POWER PLANT OPERATOR Sexual Orientation Not on file documented as of this encounter Last Filed Vital Signs Vital Sign Reading Time Taken Comments Blood Pressure - - Pulse - - Temperature - - Respiratory Rate - - Oxygen Saturation - - Inhaled Oxygen Concentration - - Weight 110 kg (241 lb 13.5 oz) 05/01/2023 11:02 AM POWER PLANT OPERATOR Height 169.9 cm (5' 6.89) 05/01/2023 11:[address] Body Mass Index 38 05/01/2023 11:02 AM POWER PLANT OPERATOR documented in this encounter Progress Notes * [...] Relevant Social and Family History Resides in [place]. Receiving treatment in [place]. Medical Tests and Procedures/Biochemical Data VFSS (03/09/23): [...] of radiation. Estimation of Nutritional Needs Calories: 1557-3482 kcals/day ([place] [facility] Jeor - x1.39 activity factor given [...] feels full even from drinking a Boost [facility]. It seems oral intake has declined most significantly since his last RDN appointment on 04/23/23. NUTRITION DIAGNOSIS Inadequate oral energy intake related to side effect of treatment as evidenced by need for enteral nutrition support. Nutrition Prescription/Recommendation Formula Type: [address] [facility] daily Infusion Schedule: or Water Flushes: 120 [...] is followed in [facility] at [facility]: follow-up plan is to see for post feeding tubeplacement appointments and monitor and evaluate as needed. Time spent with patient (minutes): 30 R PLANT OPERATOR documented in this encounter Plan of Treatment Upcoming Encounters Date Type Department Care Team (Late st Contact Info) Description 05/08/2023 8:00 AM POWER PLANT OPERATOR Appointment Department of Radiation Oncology in [address] [place] [address] Lauren Hernandez M.D. 200 [place] [address] 05/11/2023 8:15 AM POWER PLANT OPERATOR Appointment Department of Radiation Oncology in [place], [place] [address] [place] [phone] Lauren Hernandez M.D. 200 [place] [phone] documented as of this encounter Visit Diagnoses Diagnosis Malignant Neoplasm Of Oropharynx (HCC)- Primary Malignant Neoplasm Of Tonsil (HCC) Dysphagia Oropharyngeal Phase Dietary Counseling And Surveillance For Enteral Nutrition Gastrostomy Status (HCC) documented in this encounter
--- OUTSIDE RECORDS SUMMARY | 2023-05-07 10:59 | XMS_ITS | Encounter Summary ---
Author Name Unknown Organization [facility] Address [address] [place] [address] Care Team Providers Care Machine Room Engineer Name Role Phone Unavailable Primary Care Provider Unavailabl e Reason for Referral * Outpatient (Routine) - Authorized Specialty Diagnoses / Procedures Referred By Diamond montemayor Referred To Contact Diagnoses Malignant Neoplasm Of Tonsil (HCC) Dietary Counseling And Surveillance For Enteral Nutrition Kendra Tinsley APRN, C.N.P. 200 [place] [address] Referral ID Status Reason Start Date Expiration Date V isits Requested Visits Authorized [id number] Authorized 05/01/2023 04/30/2024 1 1 F BUILDER * Outpatient (Routine) - Closed Specialty Diagnoses / Procedures Referred By Diamond montemayor Referred To Contact Endocrinology Diagnoses Malignant Neoplasm Of Tonsil (HCC) Dietary Counseling And Surveillance For Enteral Nutrition Kendra Tinsley APRN, C.N.P. 200 [place] [address] [facility] Referral ID Status Reason Start Date Expiration Date Visits Re quested Visits Authorized [id number] Closed 05/01/2023 04/30/2026 1 1 F BUILDER Reason for Visit * Outpatient (Routine) - Closed Specialty Diagnoses / Procedures Referred By Diamond montemayor Referred To Contact Endocrinology Diagnoses Malignant Neoplasm Of Tonsil (HCC) Lauren Hernandez M.D. [address] [place] [address] [facility] Referral ID Status Reason Start Date Expiration Date Visits Re quested Visits Authorized [id number] Closed 04/29/2023 04/28/2024 1 1 Encounter Details Date Type Department Care Team (Latest Contact Info) Description 05/01/2023 2:00 PM WHARF BUILDER Comprehensive Visit Division of Endocrinology in [place], [place] [address] [place] [phone] Lauren Hernandez M.D. [address] [place] [phone] Kendra Tinsley APRN, C.N.PFco [address] [place] [phone] Dietary Counseling And Surveillance For [...] Sex Assigned at Male 03/01/2023 1:25 PM WHARF BUILDER Gender Identity Male 03/01/2023 1:25 PM WHARF BUILDER Sexual Orientation Not on file documented as of this encounter Consult Notes * Kendra Tinsley, PATRICE, C.N.P. - 05/01/2023 2:00 PM CST SUBJECTIVE REASON FOR VISIT/CHIEF COMPLAINT Home enteral nutrition clinic for pre gastrostomy feeding tube placement evaluation HISTORY OF PRESENT ILLNESS Mr. Tda Roland is a 68 y.o. 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 Primary chemoradiation treatment was advised. He has been receiving radiation therapy at [facility] since 03/23/2023. He is also receiving chemotherapy at [facility]. Medical history is notable for hypothyroidism, [...] dark urine. He receives infusions locally at [facility] and [facility]. Dietary intake: 1 Boost [facility] daily. Weights: See RDN note. He has lost 9% of his body weight since starting radiation. Supplements: None. Activity: None lately. Psychosocial: . 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 [...] to bilateral upper extremities and scapular regions. Egg Grader strength testing was 5/5 bilaterally. Extremities: no [...] labs monitored locally and if needed at [facility] and [facility]. If he develops symptoms of refeeding including [...] Thursday 05/04 to check magnesium, phosphorus, BMP; [place] lab. 3. Plan for refeeding labs on 05/07 in [place]. 4. Enteral goal will be for Boost [facility] 4 cartons daily. Start with 1.5 cartons 05/05, 2 on 05/06. Awaitlab results 05/07 for further advancement. 5. Oral intake of liquids as tolerated. Followup: HEN clinic post tube placement education appointments. HEN MOTOR BUS DRIVER phone visit 05/07. Will continue to follow per protocol. Total time spent 70 minutes, including [id number] and non lpne-ve-gitj care time. F BUILDER documented in this encounter Plan of Treatment Upcoming Encounters Date Type Department Care Team (Late st Contact Info) Description 05/08/2023 8:00 AM WHARF BUILDER Appointment Department of Radiation Oncology in [place], [place] [address] [place] [address] Lauren Hernandez M.D. [address] [place] [address] 05/11/2023 8:15 AM WHARF BUILDER Appointment Department of Radiation Oncology in [place], [place] [address] [place] [address] Lauren Hernandez M.D. [address] [place] [address] Scheduled Referrals Name Type Priority Associated Diagnoses Orde r Schedule Endocrinology office visit (clinic) Outpatient Referral Routine Malignant Neoplasm Of Tonsil (HCC) Dietary Counseling And Surveillance For Enteral Nutrition Expected: 05/07/2023, Expires: 07/30/2024 documented as of this encounter Results * Phosphorus Inorganic (05/04/2023 9:38 AM WHARF BUILDER) Phosphorus (Inorganic), S 3.1 2.5 - 4.5 mg/dL 05/04/2023 11:19 AM WHARF BUILDER DTL Blood (Blood, Venous) 05/04/2023 9:38 AM WHARF BUILDER 05/04/2023 10:04 AM WHARF BUILDER Kendra Tinsley APRN, C.N.P. LAB BLO OD ADD-ON [facility] [address] [place] [address], [facility] [address] [place] [address] * Magnesium (05/04/2023 9:38 AM WHARF BUILDER) Magnesium, S 2.1 1.7 - 2.3 mg/dL 05/04/2023 11:19 AM WHARF BUILDER DTL Blood (Blood, Venous) 05/04/2023 9:38 AM WHARF BUILDER 05/04/2023 10:04 AM WHARF BUILDER Kendra Tinsley APRN, C.N.P. LAB BLO OD ADD-ON [facility] [address] [place] [address], [facility] [address] [place] [address] * Basic Metabolic Panel (05/04/2023 9:38 AM WHARF BUILDER) Potassium, S 4.8 3.6 - 5.2 mmol/L 05/04/2023 11:19 AM WHARF BUILDER DTL Sodium, S 140 135 - 145 mmol/L 05/04/2023 11:19 AM WHARF BUILDER DTL Chloride, S 102 98 - 107 mmol/L 05/04/2023 11:19 AM WHARF BUILDER DTL Bicarbonate, S 26 22 - 29 mmol/L 05/04/2023 11:19 AM WHARF BUILDER DTL Anion Gap 12 7 - 15 05/04/2023 11:19 AM WHARF BUILDER DTL BUN (Blood Urea Nitrogen), S 21 8 - 24 mg/dL 05/04/2023 11:19 AM WHARF BUILDER DTL Creatinine 1.26 0.74 - 1.35 mg/dL 05/04/2023 11:19 AM WHARF BUILDER DTL Estimated GFR (eGFR) 63 >=60 mL/min/BSA 05/04/2023 11:19 AM WHARF BUILDER DTL Comment: Estimated GFR calculated using the 2020 CKD_EPI creatinine equation. Calcium, Total, S 9.7 8.8 - 10.2 mg/dL 05/04/2023 11:19 AM WHARF BUILDER DTL Glucose, S 94 70 - 140 mg/dL 05/04/2023 11:19 AM WHARF BUILDER DTL Blood (Blood, Venous) 05/04/2023 9:38 AM WHARF BUILDER 05/04/2023 10:04 AM WHARF BUILDER Kendra Tinsley APRN, C.N.P. LAB BLO OD ADD-ON [facility] [address] [place] [address], [place] DTL [facility] [address] [place] [address] documented in this encounter Visit Diagnoses Diagnosis Dietary Counseling And Surveillance For Enteral Nutrition- Primary Malignant Neoplasm Of Tonsil (HCC) documented in this encounter
--- OUTSIDE RECORDS SUMMARY | 2023-05-07 10:59 | XMS_ITS | Encounter Summary ---
Author Name Unknown Organization [facility] Address [address] [place] [address] Care Team Providers Care Precision Lens Technician Name Role Phone Unavailable Primary Care Provider Unavailabl e Reason for Referral * Outpatient (Routine) - Closed Specialty Diagnoses / Procedures Referred By Diamond montemayor Referred To Contact Radiology Diagnoses Malignant Neoplasm Of Tonsil (HCC) Procedures IR Gastrostomy Tube Placement Lauren Hernandez M.D. [address] [place] [address] [facility] Referral ID Status Reason Start Date Expiration Date Visits Re quested Visits Authorized [id number] Closed 04/29/2023 04/28/2024 1 1 IGERATOR CRATER Reason for Visit * Auth/Cert (Routine) Specialty Diagnoses / Procedures Referred By Diamond montemayor Referred To Contact Diagnoses Malignant Neoplasm Of Tonsil (HCC) Procedures IR GASTROSTOMY TUBE PLACEMENT Referral ID Status Reason Start Date Expiration Date Visits Re quested Visits Authorized [id number] 1 1 Encounter Details Date Type Department Care Team (Latest Contact Info) Description 05/04/2023 10:57 AM REFRIGERATOR CRATER - 05/04/2023 3:48 PM REFRIGERATOR CRATER Hospital Encounter Department of Radiology in [place], [place] [address] [place] [address] Lauren Hernandez M.D. [address] [place] [phone] Carlito Chaudhry M.D. 200 [place] [phone] Niko Quintanilla M.D. [address] [place] [phone] Malignant Neoplasm Of Tonsil (HCC) Discharge Disposition: [...] Sex Assigned at Male 03/01/2023 1:25 PM REFRIGERATOR CRATER Gender Identity Male 03/01/2023 1:25 PM REFRIGERATOR CRATER Sexual Orientation Not on file documented as of this encounter Last Filed Vital Signs Vital Sign Reading Time Taken Comments Blood Pressure 121/87 05/04/2023 3:35 PM REFRIGERATOR CRATER Pulse 61 05/04/2023 3:35 PM REFRIGERATOR CRATER Temperature 36.9 ??C (98.4 ??F) 05/04/2023 1:48 PM CS T Respiratory Rate 22 05/04/2023 3:35 PM REFRIGERATOR CRATER Oxygen Saturation 95% 05/04/2023 3:35 PM REFRIGERATOR CRATER Inhaled Oxygen Concentration - - Weight 109 kg (239 lb 13.8 oz) 05/04/2023 11:47 AM REFRIGERATOR CRATER Height - - Body Mass Index 37.69 05/01/2023 11:02 AM REFRIGERATOR CRATER documented in this encounter Discharge Instructions * Discharge Instr - Activity* Shara Andrew APRN, C.N.P., M.S.N. - 05/04/2023 12:39 PM REFRIGERATOR CRATER Report to the Emergency Room if you [...] supplement, liquid/PO 600 mg ibuprofen canbe used. IGERATOR CRATER * Attachments The following attachments cannot be sent through Care Everywhere. * Instructions After Sedation or Anesthesia for Adults (Lao) documented in this encounter Medications at Time [...] no issues along the newly placed 16 Kittitian gastrostomy tube ASSESSMENT/RECOVERY DISPOSITION 68-year-old gentleman with history of left tonsil squamous cell carcinoma with worsening dysphagia.Treatment course in includes chemoradiotherapy. Successful 16 Kittitian percutaneous gastrostomy tube placed under imaging guidance [...] HEN tomorrow Please page VIR NPPA at [phone] M-F 7AM-5PM or on-call resident at [phone] after 5PM and weekends. IGERATOR CRATER documented in this encounter Plan of Treatment Upcoming Encounters Date Type Department Care Team (Late st Contact Info) Description 05/08/2023 8:00 AM REFRIGERATOR CRATER Appointment Department of Radiation Oncology in [address] [phone] Lauren Hernandez M.D. [address] [place] [phone] 05/11/2023 8:15 AM REFRIGERATOR CRATER Appointment Department of Radiation Oncology in [address] [phone] Lauren Hernandez M.D. [address] [place] [phone] documented as of this encounter Procedures Procedure Name Priority Date/Time Associated Diagnosis Comments IR GASTROSTOMY TUBE PLACEMENT RAD - Routine (most inpatients and all outpatients) 05/04/2023 1:35 PM REFRIGERATOR CRATER Malignant Neoplasm Of Tonsil (HCC) ECG STAT 05/04/2023 11:34 AM REFRIGERATOR CRATER documented in this encounter Results * IR Gastrostomy Tube Placement (05/04/2023 1:35 PM REFRIGERATOR CRATER) Anatomical Region Laterality Modality Abdomen, Vascular Interventi onal RST LOS, Vascular Interventional ARZ LOS, Vascular Interventional FLA LOS N/A X-Ray Angiography Impressions 05/04/2023 2:06 PM REFRIGERATOR CRATER Placement of a 16 Kittitian percutaneous gastrostomy tube. Nothing by mouth or tube for 2 hours (strict). Then use of mouth or tube for water, medications, and/or tube feeds per Nutrition note/order. Exchange tube in 3-5 months. Contact the [facility] at [phone] to schedule the tube exchange. EP Narrative 05/04/2023 2:06 PM REFRIGERATOR CRATER EXAM: IR GASTROSTOMY TUBE PLACEMENT CLINICAL HISTORY: 68-year-old male male with history of tonsillar squamous cell carcinoma with moderate malnutrition requiring gastrostomy tube placement. Pre-Procedure Diagnosis: Cancer. Indication: Feeding. TECHNIQUE: The patient was placed supine on the fluoroscopy table. Under fluoroscopic guidance, a 4 Kittitian catheter was placed as a nasogastric tube. [...] confirmed with a small contrast injection. 4 Kittitian catheter and Glidewire were advanced into the [...] applied. No immediate complication. Tube Type: Gastrostomy, [place]. Tube Connection: ENFit. Tube Size: 16 Kittitian. Low Profile: No. Disc Height: 5 cm. [...] the fluoroscopy table. Underfluoroscopic guidance, a 4 Kittitian catheter was placed as a nasogastrictube. The [...] confirmed with a small contrast injection. 4 Kittitian catheter andGlidewire were advanced into the duodenum [...] applied. No immediate complication. Tube Type: Gastrostomy, [place]. Tube Connection: ENFit. Tube Size: 16 Kittitian. Low Profile: No. Disc Height: 5 cm. [...] by Anesthesiology. IMPRESSION: Placement of a 16 Kittitian percutaneous gastrostomy tube. Nothing by mouthor tube for 2 hours (strict). Then use of mouth or tube for water,medications, and/or tube feeds per Nutrition note/order. Exchange tube in3-5 months. Contact the [facility] clinic at [phone] to schedule the tube exchange. EP Lauren Hernandez M.D. IMG IR PROCEDURES * ECG 12 Lead (05/04/2023 11:34 AM REFRIGERATOR CRATER) Ventricular Rate ECG/Min 62 BPM MUSE WV Interval 174 ms MUSE QRSD Interval 100 ms MUSE QT Interval 420 ms MUSE QTC Interval 426 ms MUSE P [place] 10 degrees MUSE R [place] -9 degrees MUSE T Wave [place] -14 degrees MUSE 05/04/2023 11:3 4 AM REFRIGERATOR CRATER 05/04/2023 11:53 AM REFRIGERATOR CRATER Impressions MUSE - 05/04/2023 11:53 AM REFRIGERATOR CRATER Normal sinus rhythm Normal ECG No previous [...] just NPO) New Bag 05/04/2023 1:53 PM REFRIGERATOR CRATER 1,000 mg 400 mL/hr ceFAZolin injection 2 g (ANCEF) 2 g, intravenous, Once, On Thu05/04/23 at 1145, For 1 dose, Preprocedure (RAD), If needed, reconstitute vial per package insert instructions. See IVAG for administration guidelines., Indications: Prophylaxis, surgical Given 05/04/2023 11:41 AM REFRIGERATOR CRATER 2 g D5W and NaCl 0.45 % bolus 1,000 mL 1,000 mL, intravenous, at 333 mL/hr, Administer over 3 Hours, Once, On Thu05/04/23 at 1145, For 1 dose, Preprocedure (RAD) New Bag 05/04/2023 12:07 PM REFRIGERATOR CRATER 1,000 mL 333 mL/hr iohexoL 300 mg iodine/mL solution (OMNIPAQUE) As needed, Starting on Thu05/04/23 at 1335, Intra-Op Given 05/04/2023 1:35 PM REFRIGERATOR CRATER 70 mL lidocaine-sodium bicarbonate (buffered) 0.9%-8.4% injection infiltration, As needed, Starting on Thu05/04/23 at 1335, Intra-Op Given 05/04/2023 1:35 PM REFRIGERATOR CRATER 10 mL ondansetron (PF) injection 4 mg [...] dose, Preprocedure (RAD) Given 05/04/2023 12:05 PM REFRIGERATOR CRATER 200 mg documented in this encounter Active and Recently Administered Medications Times are shown in REFRIGERATOR CRATER. Scheduled Medication Order 05/02/2023 05/03/2023 05/04/2023 acetaminophen injection 1,000 mg (COMPLETED) 1,000 mg, intravenous, at 400 mL/hr, Administer over 15 Minutes, Once, On Thu05/04/23 at 1415, For 1 dose, Restriction Criteria (Pharmacy will review and approve if criteria met): Unable to take or tolerate medications administered via the enteral route or orally (not just NPO) 1353 (New Bag - Prov ider: Jazmin Mandujano RFcoNFco) ceFAZolin injection 2 g (ANCEF) (COMPLETED) 2 [...] (Anesthesia Volume Adjustment - Provider: Jayy Dimas MILL OPERATOR, CLINICAL MICROBIOLOGIST, DNAP) sodium chloride 0.9 % injection 3 [...]
--- OUTSIDE RECORDS SUMMARY | 2023-05-07 11:00 | XMS_ITS | Encounter Summary ---
Author Name Unknown Organization [facility] Address [address] [place] [address] Care Team Providers Care Html Web Developer Name Role Phone Unavailable Primary Care Provider Unavailabl e Reason for Visit * Radiation Therapy (Routine) - Authorized Specialty Diagnoses / Procedures Referred By Contac t Referred To Contact Diagnoses Malignant Neoplasm Of Oropharynx (HCC) Procedures Prior Auth Rad Tx [place] IMRT COMPLEX IMRT Lauren Hernandez M.D. [address] [place] [phone] [facility] Radiation Oncology at [place] [address] [place] [phone] Referral ID Status Reason Start Date Expiration Date V isits Requested Visits Authorized [id number] Authorized 03/23/2023 03/11/2024 35 35 Encounter Details Date Type Department Care Team (Late st Contact Info) Description 04/21/2023 8:36 AM [facility] Hospital Encounter Department of Radiation Oncology in [place], [place] [address] [place] [phone] Lauren Hernandez M.D. [address] [place] [phone] Social History Tobacco Use Types Packs/Day Years [...] your living situation today? I have a [facility] place to live 03/01/2023 Sex and Gender Information Value Date Recorded Sex Assigned at Male 03/01/2023 1:25 PM PAPER SORTER AND COUNTER Gender Identity Male 03/01/2023 1:25 PM PAPER SORTER AND COUNTER Sexual Orientation Not on file documented as of this encounter Plan of Treatment Upcoming Encounters Date Type Department Care Team (Late st Contact Info) Description 05/08/2023 8:00 AM PAPER SORTER AND COUNTER Appointment Department of Radiation Oncology in [place], [place] [address] [place] [phone] Laruen Hernandez M.D. 200 [place] [address] 05/11/2023 8:15 AM PAPER SORTER AND COUNTER Appointment Department of Radiation Oncology in [place], [place] [address] [place] [address] Lauren Hernandez M.D. [address] [place] [address] documented as of this encounter Visit Diagnoses Not on filedocumented in this encounter
--- OUTSIDE RECORDS SUMMARY | 2023-05-07 11:00 | XMS_ITS | Encounter Summary ---
Author Name Unknown Organization [facility] Address [address] [place] [address] Care Team Providers Care Casing Cleaner Name Role Phone Unavailable Primary Care Provider Unavailabl e Reason for Visit * Radiation Therapy (Routine) - Authorized Specialty Diagnoses / Procedures Referred By Contac t Referred To Contact Diagnoses Malignant Neoplasm Of Oropharynx (HCC) Procedures Prior Auth Rad Tx [place] IMRT COMPLEX IMRT Lauren Hernandez M.D. [address] [place] [phone] [facility] Radiation Oncology at [place] [address] [place] [phone] Referral ID Status Reason Start Date Expiration Date V isits Requested Visits Authorized [id number] Authorized 03/23/2023 03/11/2024 35 35 Encounter Details Date Type Department Care Team (Late st Contact Info) Description 04/24/2023 7:54 AM [facility] Hospital Encounter Department of Radiation Oncology in [place], [place] [address] [place] [phone] Lauren Hernandez M.D. [address] [place] [phone] Social History Tobacco Use Types Packs/Day Years [...] situation today? I have a [facility] place to live 03/01/2023 Sex and Gender Information Value Date Recorded Sex Assigned at Male 03/01/2023 1:25 PM HUMAN RESOURCES GENERALIST Gender Identity Male 03/01/2023 1:25 PM HUMAN RESOURCES GENERALIST Sexual Orientation Not on file documented as of this encounter Plan of Treatment Upcoming Encounters Date Type Department Care Team (Late st Contact Info) Description 05/08/2023 8:00 AM HUMAN RESOURCES GENERALIST Appointment Department of Radiation Oncology in [place], [place] [address] [place] [phone] Lauren Hernandez M.D. 200 [place] [address] 05/11/2023 8:15 AM HUMAN RESOURCES GENERALIST Appointment Department of Radiation Oncology in [place], [place] [address] [place] [address] Lauren Hernandez M.D. [address] [place] [address] documented as of this encounter Visit Diagnoses Not on filedocumented in this encounter
--- OUTSIDE RECORDS SUMMARY | 2023-05-07 11:00 | XMS_ITS | Encounter Summary ---
Author Name Unknown Organization [facility] Address [address] [place] [address] Care Team Providers Care Aerial Tram Operator Name Role Phone Unavailable Primary Care Provider Unavailabl e Reason for Visit * Radiation Therapy (Routine) - Authorized Specialty Diagnoses / Procedures Referred By Contac t Referred To Contact Diagnoses Malignant Neoplasm Of Oropharynx (HCC) Procedures Prior Auth Rad Tx [place] IMRT COMPLEX IMRT Lauren Hernandez M.D. [address] [place] [phone] [facility] Radiation Oncology at [place] [address] [place] [phone] Referral ID Status Reason Start Date Expiration Date V isits Requested Visits Authorized [id number] Authorized 03/23/2023 03/11/2024 35 35 Encounter Details Date Type Department Care Team (Late st Contact Info) Description 04/14/2023 8:26 AM [facility] Hospital Encounter Department of Radiation Oncology in [place], [place] [address] [place] [phone] Lauren Hernandez M.D. [address] [place] [phone] Social History Tobacco Use Types Packs/Day Years [...] Sex Assigned at Male 03/01/2023 1:25 PM FIREARMS EXPERT Gender Identity Male 03/01/2023 1:25 PM FIREARMS EXPERT Sexual Orientation Not on file documented as of this encounter Plan of Treatment Upcoming Encounters Date Type Department Care Team (Late st Contact Info) Description 05/08/2023 8:00 AM FIREARMS EXPERT Appointment Department of Radiation Oncology in [place], [place] [address] [place] [phone] Lauren Hernandez M.D. 200 [place] [phone] 05/11/2023 8:15 AM FIREARMS EXPERT Appointment Department of Radiation Oncology in [place], [place] [address] [place] [address] Lauren Hernandez M.D. [address] [place] [address] documented as of this encounter Visit Diagnoses Not on filedocumented in this encounter
--- OUTSIDE RECORDS SUMMARY | 2023-05-07 11:00 | XMS_ITS | Encounter Summary ---
Author Name Unknown Organization [facility] Address [address] [place] [address] Care Team Providers Care Supplier Manager Name Role Phone Unavailable Primary Care Provider Unavailabl e Reason for Visit * Radiation Therapy (Routine) - Authorized Specialty Diagnoses / Procedures Referred By Contac t Referred To Contact Diagnoses Malignant Neoplasm Of Oropharynx (HCC) Procedures Prior Auth Rad Tx [place] IMRT COMPLEX IMRT Lauren Hernandez M.D. [address] [place] [phone] [facility] Radiation Oncology at [place] [address] [place] [phone] Referral ID Status Reason Start Date Expiration Date V isits Requested Visits Authorized [id number] Authorized 03/23/2023 03/11/2024 35 35 Encounter Details Date Type Department Care Team (Late st Contact Info) Description 04/13/2023 9:12 AM [facility] Hospital Encounter Department of Radiation Oncology in [place], [place] [address] [place] [phone] Lauren Hernandez M.D. [address] [place] [phone] Social History Tobacco Use Types Packs/Day Years [...] living situation today? I have a [facility] place to live 03/01/2023 Sex and Gender Information Value Date Recorded Sex Assigned at Male 03/01/2023 1:25 PM CUT AND COVER LINE WORKER Gender Identity Male 03/01/2023 1:25 PM CUT AND COVER LINE WORKER Sexual Orientation Not on file documented as of this encounter Plan of Treatment Upcoming Encounters Date Type Department Care Team (Late st Contact Info) Description 05/08/2023 8:00 AM CUT AND COVER LINE WORKER Appointment Department of Radiation Oncology in [place], [place] [address] [place] [phone] Lauren Hernandez M.D. 200 [place] [phone] 05/11/2023 8:15 AM CUT AND COVER LINE WORKER Appointment Department of Radiation Oncology in [place], [place] [address] [place] [address] Lauren Hernandez M.D. [address] [place] [address] documented as of this encounter Visit Diagnoses Not on filedocumented in this encounter
--- OUTSIDE RECORDS SUMMARY | 2023-05-07 11:00 | XMS_ITS | Encounter Summary ---
Author Name Unknown Organization [facility] Address [address] [place] [address] Care Team Providers Care Virtual Recruiter Name Role Phone Unavailable Primary Care Provider Unavailabl e Reason for Visit * Radiation Therapy (Routine) - Authorized Specialty Diagnoses / Procedures Referred By Contac t Referred To Contact Diagnoses Malignant Neoplasm Of Oropharynx (HCC) Procedures Prior Auth Rad Tx [place] IMRT COMPLEX IMRT Lauren Hernandez M.D. [address] [place] [phone] [facility] Radiation Oncology at [place] [address] [place] [phone] Referral ID Status Reason Start Date Expiration Date V isits Requested Visits Authorized [id number] Authorized 03/23/2023 03/11/2024 35 35 Encounter Details Date Type Department Care Team (Late st Contact Info) Description 04/15/2023 8:32 AM [facility] Hospital Encounter Department of Radiation Oncology in [place], [place] [address] [place] [phone] Lauren Hernandez M.D. [address] [place] [phone] Social History Tobacco Use Types Packs/Day Years [...] living situation today? I have a [facility] place to live 03/01/2023 Sex and Gender Information Value Date Recorded Sex Assigned at Male 03/01/2023 1:25 PM SUPERVISOR VOLUNTEER SERVICES Gender Identity Male 03/01/2023 1:25 PM SUPERVISOR VOLUNTEER SERVICES Sexual Orientation Not on file documented as of this encounter Plan of Treatment Upcoming Encounters Date Type Department Care Team (Late st Contact Info) Description 05/08/2023 8:00 AM SUPERVISOR VOLUNTEER SERVICES Appointment Department of Radiation Oncology in [place], [place] [address] [place] [phone] Lauren Hernandez M.D. 200 [place] [phone] 05/11/2023 8:15 AM SUPERVISOR VOLUNTEER SERVICES Appointment Department of Radiation Oncology in [place], [place] [address] [place] [address] Lauren Hernandez M.D. [address] [place] [address] documented as of this encounter Visit Diagnoses Not on filedocumented in this encounter
--- OUTSIDE RECORDS SUMMARY | 2023-05-07 11:00 | XMS_ITS | Encounter Summary ---
Author Name Unknown Organization [facility] Address [address] [place] [address] Care Team Providers Care Trench Digger Helper Name Role Phone Unavailable Primary Care Provider Unavailabl e Encounter Details Date Type Department Care Team (Late st Contact Info) Description 04/17/2023 Orders Only Department of Radiation Oncology in [place], [place] [address] [place] [phone] Lauren Hernandez M.D. [address] [place] [address] Social History Tobacco Use Types Packs/Day Years [...] your living situation today? I have a [facility] place to live 03/01/2023 Sex and Gender Information Value Date Recorded Sex Assigned at Male 03/01/2023 1:25 PM KNIFE SETTER GRINDER MACHINE Gender Identity Male 03/01/2023 1:25 PM KNIFE SETTER GRINDER MACHINE Sexual Orientation Not on file documented as of this encounter Plan of Treatment Upcoming Encounters Date Type Department Care Team (Late st Contact Info) Description 05/08/2023 8:00 AM KNIFE SETTER GRINDER MACHINE Appointment Department of Radiation Oncology in [place], [place] [address] [place] [phone] Lauren Hernandez M.D. 200 [place] [phone] 05/11/2023 8:15 AM KNIFE SETTER GRINDER MACHINE Appointment Department of Radiation Oncology in [place], [place] [address] [place] [address] Lauren Hernandez M.D. 200 [place] [phone] documented as of this encounter Visit Diagnoses Not on filedocumented in this encounter
--- OUTSIDE RECORDS SUMMARY | 2023-05-07 11:00 | XMS_ITS | Encounter Summary ---
Author Name Unknown Organization [facility] Address [address] [place] [address] Care Team Providers Care Technical Training Coordinator Name Role Phone Unavailable Primary Care Provider Unavailabl e Encounter Details Date Type Department Care Team (Late st Contact Info) Description 04/14/2023 Clinical Communication Department of Radiation Oncology in [place], [place] [address] [place] [phone] Lauren Hernandez M.D. [address] [place] [address] Social History Tobacco Use Types Packs/Day Years [...] Sex Assigned at Male 03/01/2023 1:25 PM CARDIAC MONITOR Gender Identity Male 03/01/2023 1:25 PM CARDIAC MONITOR Sexual Orientation Not on file documented as of this encounter Plan of Treatment Upcoming Encounters Date Type Department Care Team (Late st Contact Info) Description 05/08/2023 8:00 AM CARDIAC MONITOR Appointment Department of Radiation Oncology in [place], [place] [address] [place] [address] Lauren Hernandez M.D. 200 [place] [address] 05/11/2023 8:15 AM CARDIAC MONITOR Appointment Department of Radiation Oncology in [place], [place] [address] [place] [address] Lauren Hernandez M.D. [address] [place] [address] documented as of this encounter Visit Diagnoses Not on filedocumented in this encounter
--- OUTSIDE RECORDS SUMMARY | 2023-05-07 11:00 | XMS_ITS | Encounter Summary ---
Author Name Unknown Organization [facility] Address [address] [place] [address] Care Team Providers Care Machinist Automotive Name Role Phone Unavailable Primary Care Provider Unavailabl e Reason for Referral * Radiation Therapy (Routine) - Authorized Specialty Diagnoses / Procedures Referred By Diamond montemayor Referred To Contact Diagnoses Malignant Neoplasm Of Oropharynx (HCC) Procedures Management Visit Lauren Hernandez M.D. 200 [place] [phone] [facility] Region Referral ID Status Reason Start Date Expiration Date V isits Requested Visits Authorized [id number] Authorized 03/12/2023 03/11/2024 10 10 Y BLENDER Reason for Visit * Radiation Therapy (Routine) - Authorized Specialty Diagnoses / Procedures Referred By Diamond montemayor Referred To Contact Diagnoses Malignant Neoplasm Of Oropharynx (HCC) Procedures Management Visit Lauren Hernandez M.D. 200 [place] [address] [facility] Region Referral ID Status Reason Start Date Expiration Date V isits Requested Visits Authorized [id number] Authorized 03/12/2023 03/11/2024 10 10 Encounter Details Date Type Department Care Team (Latest Contact Info) Description 04/22/2023 7:49 AM SPRAY BLENDER - 04/22/2023 9:25 AM SPRAY BLENDER Hospital Encounter Department of Radiation Oncology in [address] [phone] Lauren Hernandez M.D. 200 [place] [phone] Omari Cheney M.D. 200 [place] [phone] Malignant Neoplasm Of Oropharynx (HCC) Social History [...] your living situation today? [facility] 03/01/2023 Sex and Gender Information Value Date Recorded Sex Assigned at Male 03/01/2023 1:25 PM SPRAY BLENDER Gender Identity Male 03/01/2023 1:25 PM SPRAY BLENDER Sexual Orientation Not on file documented as of this encounter Last Filed Vital Signs Vital Sign Reading Time Taken Comments Blood Pressure 125/71 04/22/2023 8:21 AM SPRAY BLENDER Pulse 61 04/22/2023 8:21 AM SPRAY BLENDER Temperature 36.3 ??C (97.3 ??F) 04/22/2023 8:21 AM CS T Respiratory Rate - - Oxygen Saturation - - Inhaled Oxygen Concentration - - Weight 115 kg (253 lb 1.4 oz) 04/22/2023 8:21 AM SPRAY BLENDER Height - - Body Mass Index 39.72 03/26/2023 9:06 AM SPRAY BLENDER documented in this encounter Medications at Time [...] under the care of Dr. Wu at [facility]. Treatment Course: 1xOpx Plan ID Fractions Dose / Fraction (cGy) Dose Treated (cGy) Dose Planned (cGy) First Treatment Last Treatment Elapsed Days F1Opx 200 4400 7000 03/23/2023 04/22/2023 30 Course Summary 03/23/2023 04/22/2023 30 The patient was seen and examined today with Dr. Hernandez. The patient reports 2 out of 10 pain when swallowing. He has recently switched to taking 1 [facility] [id number] and 1 [facility] at 1630 and then Magic Mouthwash at [...] week. Patient has been encouraged to take [facility] every 4 hours as needed for pain management to help increase caloric intake. Patient needs to increase daily intake of VHC Boosts (530calories) to at least 4 a day and increase frequency of intake of soft based foods. Patient will meet with our Special Librarian again tomorrow. Our goal is to prevent further weight loss and therefore prevent feeding tube placement. Patient will increase frequency of Aquaphor application. Patient has Dermatology follow up appointment on July 09, 2023 at [facility]. We will continue to see patient in weekly management visits through out course of radiation therapy. He will continue with radiation treatment as planned. He can contact our care team with any questions or concerns. Signed by: Anita Kyle R.N. 04/22/2023 8:48 AM SPRAY BLENDER I saw and evaluated the patient and participated in the zhang portions of the service. I reviewed thedocumentation of Anita Kyle R.N. and agree with the findings and plan. The patient appears well on exam. He is tolerating treatment well but is losing weight. He will increase his [facility] use that he can increase his oral intake. He is meeting with our dietitian tomorrow. He will continue with treatment as planned. Signed by: Omari Cheney M.D. 04/22/2023 9:25 AM SPRAY BLENDER [facility] Rad[facility] Center [address] [place] [phone] Y BLENDER documented in this encounter Plan of Treatment Upcoming Encounters Date Type Department Care Team (Late st Contact Info) Description 05/08/2023 8:00 AM SPRAY BLENDER Appointment Department of Radiation Oncology in [address] [phone] Lauren Hernandez M.D. [address] [place] [phone] 05/11/2023 8:15 AM SPRAY BLENDER Appointment Department of Radiation Oncology in [address] [phone] Lauren Hernandez M.D. [address] [place] [phone] Scheduled Orders Name Type Priority Associated Diagnoses Orde r Schedule Management Visit Radiation Oncology Routine Malignant Neoplasm Of Oropharynx (HCC) Once for 1 Occurrences starting 04/22/2023 until 04/22/2023 documented as of this encounter Visit Diagnoses Diagnosis Malignant Neoplasm Of Oropharynx (HCC) documented in this encounter
--- OUTSIDE RECORDS SUMMARY | 2023-05-07 11:00 | XMS_ITS | Encounter Summary ---
Author Name Unknown Organization [facility] Address [address] [place] [address] Care Team Providers Care Aids Counselor Name Role Phone Unavailable Primary Care Provider Unavailabl e Reason for Visit * Radiation Therapy (Routine) - Authorized Specialty Diagnoses / Procedures Referred By Contac t Referred To Contact Diagnoses Malignant Neoplasm Of Oropharynx (HCC) Procedures Prior Auth Rad Tx [place] IMRT COMPLEX IMRT Lauren Hernandez M.D. [address] [place] [phone] [facility] Radiation Oncology at [place] [address] [place] [phone] Referral ID Status Reason Start Date Expiration Date V isits Requested Visits Authorized [id number] Authorized 03/23/2023 03/11/2024 35 35 Encounter Details Date Type Department Care Team (Late st Contact Info) Description 04/23/2023 7:47 AM [facility] Hospital Encounter Department of Radiation Oncology in [place], [place] [address] [place] [phone] Lauren Hernandez M.D. [address] [place] [phone] Social History Tobacco Use Types Packs/Day Years [...] your living situation today? I have a [facility] place to live 03/01/2023 Sex and Gender Information Value Date Recorded Sex Assigned at Male 03/01/2023 1:25 PM ERP ANALYST Gender Identity Male 03/01/2023 1:25 PM ERP ANALYST Sexual Orientation Not on file documented as of this encounter Plan of Treatment Upcoming Encounters Date Type Department Care Team (Late st Contact Info) Description 05/08/2023 8:00 AM ERP ANALYST Appointment Department of Radiation Oncology in [place], [place] [address] [place] [phone] Lauren Hernandez M.D. 200 [place] [phone] 05/11/2023 8:15 AM ERP ANALYST Appointment Department of Radiation Oncology in [place], [place] [address] [place] [address] Lauren Hernandez M.D. [address] [place] [address] documented as of this encounter Visit Diagnoses Not on filedocumented in this encounter
--- OUTSIDE RECORDS SUMMARY | 2023-05-07 11:00 | XMS_ITS | Encounter Summary ---
Author Name Unknown Organization [facility] Address [address] [place] [address] Care Team Providers Care Electromechanisms Design Drafter Name Role Phone Unavailable Primary Care Provider Unavailabl e Reason for Visit * Radiation Therapy (Routine) - Authorized Specialty Diagnoses / Procedures Referred By Contac t Referred To Contact Diagnoses Malignant Neoplasm Of Oropharynx (HCC) Procedures Prior Auth Rad Tx [place] IMRT COMPLEX IMRT Lauren Hernandez M.D. [address] [place] [phone] [facility] Radiation Oncology at [place] [address] [place] [phone] Referral ID Status Reason Start Date Expiration Date V isits Requested Visits Authorized [id number] Authorized 03/23/2023 03/11/2024 35 35 Encounter Details Date Type Department Care Team (Late st Contact Info) Description 04/10/2023 8:45 AM [facility] Hospital Encounter Department of Radiation Oncology in [place], [place] [address] [place] [phone] Lauren Hernandez M.D. [address] [place] [phone] Social History Tobacco Use Types Packs/Day Years [...] your living situation today? I have a [facility] place to live 03/01/2023 Sex and Gender Information Value Date Recorded Sex Assigned at Male 03/01/2023 1:25 PM TOW MOTOR MECHANIC Gender Identity Male 03/01/2023 1:25 PM TOW MOTOR MECHANIC Sexual Orientation Not on file documented as of this encounter Plan of Treatment Upcoming Encounters Date Type Department Care Team (Late st Contact Info) Description 05/08/2023 8:00 AM TOW MOTOR MECHANIC Appointment Department of Radiation Oncology in [place], [place] [address] [place] [phone] Lauren Hernandez M.D. 200 [place] [phone] 05/11/2023 8:15 AM TOW MOTOR MECHANIC Appointment Department of Radiation Oncology in [place], [place] [address] [place] [address] Lauren Hernandez M.D. [address] [place] [phone] documented as of this encounter Visit Diagnoses Not on filedocumented in this encounter
--- OUTSIDE RECORDS SUMMARY | 2023-05-07 11:00 | XMS_ITS | Encounter Summary ---
Author Name Unknown Organization [facility] Address [address] [place] [address] Care Team Providers Care Retail Pricing Coordinator Name Role Phone Unavailable Primary Care Provider Unavailabl e Reason for Visit * Radiation Therapy (Routine) - Authorized Specialty Diagnoses / Procedures Referred By Contac t Referred To Contact Diagnoses Malignant Neoplasm Of Oropharynx (HCC) Procedures Prior Auth Rad Tx [place] IMRT COMPLEX IMRT Lauren Hernandez M.D. [address] [place] [phone] [facility] Radiation Oncology at [place] [address] [place] [phone] Referral ID Status Reason Start Date Expiration Date V isits Requested Visits Authorized [id number] Authorized 03/23/2023 03/11/2024 35 35 Encounter Details Date Type Department Care Team (Late st Contact Info) Description 04/16/2023 8:16 AM [facility] Hospital Encounter Department of Radiation Oncology in [place], [place] [address] [place] [phone] Lauren Hernandez M.D. [address] [place] [phone] Social History Tobacco Use Types Packs/Day Years [...] your living situation today? I have a [facility] place to live 03/01/2023 Sex and Gender Information Value Date Recorded Sex Assigned at Male 03/01/2023 1:25 PM JAMMER HOOKER Gender Identity Male 03/01/2023 1:25 PM JAMMER HOOKER Sexual Orientation Not on file documented as of this encounter Plan of Treatment Upcoming Encounters Date Type Department Care Team (Late st Contact Info) Description 05/08/2023 8:00 AM JAMMER HOOKER Appointment Department of Radiation Oncology in [place], [place] [address] [place] [phone] Lauren Hernandez M.D. 200 [place] [phone] 05/11/2023 8:15 AM JAMMER HOOKER Appointment Department of Radiation Oncology in [place], [place] [address] [place] [phone] Lauren Hernandez M.D. [address] [place] [address] documented as of this encounter Visit Diagnoses Not on filedocumented in this encounter
--- OUTSIDE RECORDS SUMMARY | 2023-05-07 11:00 | XMS_ITS | Encounter Summary ---
Author Name Unknown Organization [facility] Address [address] [place] [address] Care Team Providers Care Colored Liquid Plastic Applier Name Role Phone Unavailable Primary Care Provider Unavailabl e Reason for Referral * Outpatient (Routine) - Authorized Specialty Diagnoses / Procedures Referred By Contac t Referred To Contact Nutrition Diagnoses Malignant Neoplasm Of Oropharynx (HCC) Ashlee Go APRN, C.N.P., D.N.P. [address] [place] [phone] [facility] Region Referral ID Status Reason Start Date Expiration Date V isits Requested Visits Authorized [id number] Authorized 03/12/2023 03/11/2024 5 5 ING WHEEL FORMER AUTOMATIC Reason for Visit * Outpatient (Routine) - Authorized Specialty Diagnoses / Procedures Referred By Contac t Referred To Contact Nutrition Diagnoses Malignant Neoplasm Of Oropharynx (HCC) Ashlee Go APRN, C.N.P., D.N.P. [address] [place] [phone] [facility] Region Referral ID Status Reason Start Date Expiration Date V isits Requested Visits Authorized [id number] Authorized 03/12/2023 03/11/2024 5 5 Encounter Details Date Type Department Care Team (Late st Contact Info) Description 04/23/2023 8:09 AM BUFFING WHEEL FORMER AUTOMATIC Hospital Encounter Department of Radiation Oncology in [place], [place] [address] [place] [phone] Ashlee Go APRN, C.N.P., D.N.P. [address] [place] [address] Poly Gill, NIDA [address] [place] [phone] Malignant Neoplasm Of Oropharynx (HCC) [...] Sex Assigned at Male 03/01/2023 1:25 PM BUFFING WHEEL FORMER AUTOMATIC Gender Identity Male 03/01/2023 1:25 PM BUFFING WHEEL FORMER AUTOMATIC Sexual Orientation Not on file documented as [...] He is also receiving chemotherapy at [facility]. PAST MEDICAL HISTORY The medical history was reviewed today from the electronic medical record. Please see the electronic medical record for complete details of the PAST MEDICAL HISTORY. ASSESSMENT Relevant Social and Family History Mr. Roland lives with his spouse, Eva in [place]. Nutrition Focused Physical Findings Mouth/esophagus/Throat: pain manageable [...] (Adj. Wt.) Date: 03/13/23 Total Calorie Needs: [phone] (HB basal to basal + 20%) Estimated [...] withquestions. Time spent with patient (minutes): 15 ING WHEEL FORMER AUTOMATIC documented in this encounter Plan of Treatment Upcoming Encounters Date Type Department Care Team (Late st Contact Info) Description 05/08/2023 8:00 AM BUFFING WHEEL FORMER AUTOMATIC Appointment Department of Radiation Oncology in [address] [phone] Lauren Hernandez M.D. [address] [place] [phone] 05/11/2023 8:15 AM BUFFING WHEEL FORMER AUTOMATIC Appointment Department of Radiation Oncology in [address] [phone] Lauren Hernandez M.D. [address] [place] [phone] Scheduled Referrals Name Type Priority Associated Diagnoses Order Schedule Nutrition - Medical nutrition therapy consult (clinic) Outpatient Referral Routine Malignant Neoplasm Of Oropharynx (HCC) Once for 1 Occurrences starting 04/23/2023 until 04/23/2023 documented as of this encounter Visit Diagnoses Diagnosis Malignant Neoplasm Of Oropharynx (HCC) documented in this encounter
--- OUTSIDE RECORDS SUMMARY | 2023-05-07 11:00 | XMS_ITS | Encounter Summary ---
Author Name Unknown Organization [facility] Address [address] [place] [address] Care Team Providers Care Store Person Name Role Phone Unavailable Primary Care Provider Unavailabl e Reason for Visit * Radiation Therapy (Routine) - Authorized Specialty Diagnoses / Procedures Referred By Contac t Referred To Contact Diagnoses Malignant Neoplasm Of Oropharynx (HCC) Procedures Prior Auth Rad Tx [place] IMRT COMPLEX IMRT Lauren Hernandez M.D. [address] [place] [phone] [facility] Radiation Oncology at [place] [address] [place] [phone] Referral ID Status Reason Start Date Expiration Date V isits Requested Visits Authorized [id number] Authorized 03/23/2023 03/11/2024 35 35 Encounter Details Date Type Department Care Team (Late st Contact Info) Description 04/17/2023 8:18 AM [facility] Hospital Encounter Department of Radiation Oncology in [place], [place] [address] [place] [phone] Lauren Hernandez M.D. [address] [place] [phone] Social History Tobacco Use Types Packs/Day Years [...] Sex Assigned at Male 03/01/2023 1:25 PM MEDICAL ASSISTANT SUPERVISOR Gender Identity Male 03/01/2023 1:25 PM MEDICAL ASSISTANT SUPERVISOR Sexual Orientation Not on file documented as of this encounter Plan of Treatment Upcoming Encounters Date Type Department Care Team (Late st Contact Info) Description 05/08/2023 8:00 AM MEDICAL ASSISTANT SUPERVISOR Appointment Department of Radiation Oncology in [place], [place] [address] [place] [phone] Lauren Hernandez M.D. 200 [place] [phone] 05/11/2023 8:15 AM MEDICAL ASSISTANT SUPERVISOR Appointment Department of Radiation Oncology in [place], [place] [address] [place] [address] Lauren Hernandez M.D. [address] [place] [address] documented as of this encounter Visit Diagnoses Not on filedocumented in this encounter
--- OUTSIDE RECORDS SUMMARY | 2023-05-07 11:00 | XMS_ITS | Encounter Summary ---
Author Name Unknown Organization [facility] Address [address] [place] [address] Care Team Providers Care Editor News Name Role Phone Unavailable Primary Care Provider Unavailabl e Reason for Visit * Radiation Therapy (Routine) - Authorized Specialty Diagnoses / Procedures Referred By Contac t Referred To Contact Diagnoses Malignant Neoplasm Of Oropharynx (HCC) Procedures Prior Auth Rad Tx [place] IMRT COMPLEX IMRT Lauren Hernandez M.D. [address] [phone] [facility] [[email or web address] Radiation Oncology at [place] [address] [place] [phone] Referral ID Status Reason Start Date Expiration Date V isits Requested Visits Authorized [id number] Authorized 03/23/2023 03/11/2024 35 35 Encounter Details Date Type Department Care Team (Late st Contact Info) Description 04/22/2023 7:49 AM [facility] Hospital Encounter Department of Radiation Oncology in [place], [place] [address] [place] [phone] Lauren Hernandez M.D. [address] [place] [place] [phone] Social History Tobacco Use Types Packs/Day Years [...] your living situation today? I have a [facility] place to live 03/01/2023 Sex and Gender Information Value Date Recorded Sex Assigned at Male 03/01/2023 1:25 PM TUBE BUILDER Gender Identity Male 03/01/2023 1:25 PM TUBE BUILDER Sexual Orientation Not on file documented as of this encounter Plan of Treatment Upcoming Encounters Date Type Department Care Team (Late st Contact Info) Description 05/08/2023 8:00 AM TUBE BUILDER Appointment Department of Radiation Oncology in [place], [place] [address] [place] [phone] Lauren Hernandez M.D. 200 [place] [phone] 05/11/2023 8:15 AM TUBE BUILDER Appointment Department of Radiation Oncology in [place], [place] [address] [place] [phone] Lauren Hernandez M.D. [address] [place] [phone] documented as of this encounter Visit Diagnoses Not on filedocumented in this encounter
--- OUTSIDE RECORDS SUMMARY | 2023-05-07 11:00 | XMS_ITS | Encounter Summary ---
Author Name Unknown Organization [facility] Address [address] [place] [address] Care Team Providers Care Company Miner Blasting Name Role Phone Unavailable Primary Care Provider Unavailabl e Reason for Visit * Radiation Therapy (Routine) - Authorized Specialty Diagnoses / Procedures Referred By Contac t Referred To Contact Diagnoses Malignant Neoplasm Of Oropharynx (HCC) Procedures Prior Auth Rad Tx [place] IMRT COMPLEX IMRT Lauren Hernandez M.D. [address] [place] [phone] [facility] Radiation Oncology at [place] [address] [place] [phone] Referral ID Status Reason Start Date Expiration Date V isits Requested Visits Authorized [id number] Authorized 03/23/2023 03/11/2024 35 35 Encounter Details Date Type Department Care Team (Late st Contact Info) Description 04/23/2023 2:48 PM [facility] Hospital Encounter Department of Radiation Oncology in [place], [place] [address] [place] [phone] Lauren Hernandez M.D. [address] [place] [phone] Social History Tobacco Use Types Packs/Day Years [...] your living situation today? I have a [facility] place to live 03/01/2023 Sex and Gender Information Value Date Recorded Sex Assigned at Male 03/01/2023 1:25 PM ATTENDANT CAMPGROUND Gender Identity Male 03/01/2023 1:25 PM ATTENDANT CAMPGROUND Sexual Orientation Not on file documented as of this encounter Plan of Treatment Upcoming Encounters Date Type Department Care Team (Late st Contact Info) Description 05/08/2023 8:00 AM ATTENDANT CAMPGROUND Appointment Department of Radiation Oncology in [place], [place] [address] [place] [phone] Lauren Hernandez M.D. 200 [place] [phone] 05/11/2023 8:15 AM ATTENDANT CAMPGROUND Appointment Department of Radiation Oncology in [place], [place] [address] [place] [phone] Lauren Hernandez M.D. [address] [place] [phone] documented as of this encounter Visit Diagnoses Not on filedocumented in this encounter
--- OUTSIDE RECORDS SUMMARY | 2023-05-07 11:00 | XMS_ITS | Encounter Summary ---
Author Name Unknown Organization [facility] Address [address] [place] [address] Care Team Providers Care Certified Pharmacist Assistant Name Role Phone Unavailable Primary Care Provider Unavailabl e Reason for Referral * Radiation Therapy (Routine) - Authorized Specialty Diagnoses / Procedures Referred By Diamond montemayor Referred To Contact Diagnoses Malignant Neoplasm Of Oropharynx (HCC) Procedures Management Visit Lauren Hernandez M.D. [address] [place] [address] [facility] Region Referral ID Status Reason Start Date Expiration Date V isits Requested Visits Authorized [id number] Authorized 03/12/2023 03/11/2024 10 10 ADVISOR Reason for Visit * Radiation Therapy (Routine) - Authorized Specialty Diagnoses / Procedures Referred By Diamond montemayor Referred To Contact Diagnoses Malignant Neoplasm Of Oropharynx (HCC) Procedures Management Visit Lauren Hernandez M.D. [address] [place] [address] [facility] Region Referral ID Status Reason Start Date Expiration Date V isits Requested Visits Authorized [id number] Authorized 03/12/2023 03/11/2024 10 10 Encounter Details Date Type Department Care Team (Latest Contact Info) Description 04/15/2023 8:20 AM LIFE ADVISOR - 04/15/2023 8:31 AM LIFE ADVISOR Hospital Encounter Department of Radiation Oncology in [address] [phone] Lauren Hernandez M.D. [address] [place] [address] Malignant Neoplasm Of Oropharynx (HCC) Social History [...] Sex Assigned at Male 03/01/2023 1:25 PM LIFE ADVISOR Gender Identity Male 03/01/2023 1:25 PM LIFE ADVISOR Sexual Orientation Not on file documented as of this encounter Last Filed Vital Signs Vital Sign Reading Time Taken Comments Blood Pressure 115/65 04/15/2023 8:54 AM LIFE ADVISOR Pulse 58 04/15/2023 8:54 AM LIFE ADVISOR Temperature 36.2 ??C (97.1 ??F) 04/15/2023 8:54 AM CS T Respiratory Rate - - Oxygen Saturation - - Inhaled Oxygen Concentration - - Weight 117 kg (258 lb 9.6 oz) 04/15/2023 8:54 AM LIFE ADVISOR Height - - Body Mass Index 40.59 03/26/2023 9:06 AM LIFE ADVISOR documented in this encounter Medications at Time [...] HISTORY OF PRESENT ILLNESS Mr. Tad Arnoldo Casa Blanca is a 68 y.o. 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 He is receiving weekly Cisplatin under the care of Dr. Wu at [facility]. Treatment Course: 1xOpx Plan ID Fractions Dose [...] he is getting in Dietary's recommendation of 9627-1043 calories a day. We discussed trialing smoothies [...] up appointment on July 09, 2023 at [facility]. Patient is to add Aquaphor application 1-2 times a day due to increase in dryness to treatment field area. He will continue with radiation treatment as planned. He can contact our care team with any questions or concerns. Signed by: Anita Kyle R.N. 04/15/2023 9:40 AM LIFE ADVISOR ADVISOR documented in this encounter Plan of Treatment Upcoming Encounters Date Type Department Care Team (Late st Contact Info) Description 05/08/2023 8:00 AM LIFE ADVISOR Appointment Department of Radiation Oncology in [place], [place] [address] [place] [address] Lauren Hernandez M.D. [address] [place] [address] 05/11/2023 8:15 AM LIFE ADVISOR Appointment Department of Radiation Oncology in [place], [place] [address] [place] [address] Lauren Hernandez M.D. [address] [place] [address] Scheduled Orders Name Type Priority Associated Diagnoses Orde r Schedule Management Visit Radiation Oncology Routine Malignant Neoplasm Of Oropharynx (HCC) Once for 1 Occurrences starting 04/15/2023 until 04/15/2023 documented as of this encounter Visit Diagnoses Diagnosis Malignant Neoplasm Of Oropharynx (HCC) documented in this encounter
--- OUTSIDE RECORDS SUMMARY | 2023-05-07 11:01 | XMS_ITS | Encounter Summary ---
Author Name Unknown Organization [facility] Address [address] [place] [address] Care Team Providers Care Pearl Stringer Name Role Phone Unavailable Primary Care Provider Unavailabl e Reason for Referral * Specialty Diagnoses / Procedures Referred By Diamond t Referred To Contact Terri Crowe P.A.-C., M.S. [address] [place] [phone] [facility] Region Referral ID Status Reason Start Date Expiration Date Visits Re quested Visits Authorized NESS APPLICATIONS SPECIALIST Encounter Details Date Type Department Care Team (Latest Contact Info) Description 04/03/2023 9:53 AM BUSINESS APPLICATIONS SPECIALIST - 04/03/2023 11:57 AM BUSINESS APPLICATIONS SPECIALIST Hospital Encounter Department of Radiation Oncology in [place], [place] [address] [place] [phone] Lauren Hernandez M.D. [address] [place] [phone] Anita Kyle RJurgen [address] [place] [phone] Malignant Neoplasm Of Oropharynx (HCC) Discharge Disposition: [...] living situation today? I have a [facility] place to live 03/01/2023 Sex and Gender Information Value Date Recorded Sex Assigned at Male 03/01/2023 1:25 PM BUSINESS APPLICATIONS SPECIALIST Gender Identity Male 03/01/2023 1:25 PM BUSINESS APPLICATIONS SPECIALIST Sexual Orientation Not on file documented as of this encounter Last Filed Vital Signs Vital Sign Reading Time Taken Comments Blood Pressure - - Pulse - - Temperature - - Respiratory Rate - - Oxygen Saturation - - Inhaled Oxygen Concentration - - Weight 124 kg (273 lb 9.5 oz) 04/03/2023 11:00 A M BUSINESS APPLICATIONS SPECIALIST Height - - Body Mass Index 42.94 03/26/2023 9:06 AM BUSINESS APPLICATIONS SPECIALIST documented in this encounter Medications at Time [...] at any point, with questions or concerns. NESS APPLICATIONS SPECIALIST documented in this encounter Plan of Treatment Upcoming Encounters Date Type Department Care Team (Late st Contact Info) Description 05/08/2023 8:00 AM BUSINESS APPLICATIONS SPECIALIST Appointment Department of Radiation Oncology in [address] [phone] Lauren Hernandez M.D. [address] [place] [phone] 05/11/2023 8:15 AM BUSINESS APPLICATIONS SPECIALIST Appointment Department of Radiation Oncology in [address] [phone] Lauren Hernandez M.D. [address] [place] [phone] Scheduled Referrals Name Type Priority Associated Diagnoses Order Schedule Radiation Oncology - Nurse education visit (clinic) Outpatient Referral Routine Malignant Neoplasm Of Oropharynx (HCC) Once for 1 Occurrences starting 04/03/2023 until 04/03/2023 documented as of this encounter Visit Diagnoses Diagnosis Malignant Neoplasm Of Oropharynx (HCC) documented in this encounter
--- OUTSIDE RECORDS SUMMARY | 2023-05-07 11:01 | XMS_ITS | Encounter Summary ---
Author Name Unknown Organization [facility] Address [address] [place] [address] Care Team Providers Care Rolling Machine Operator Automatic Name Role Phone Unavailable Primary Care Provider Unavailabl e Reason for Referral * Radiation Therapy (Routine) - Authorized Specialty Diagnoses / Procedures Referred By Diamond montemayor Referred To Contact Diagnoses Malignant Neoplasm Of Oropharynx (HCC) Procedures Management Visit Lauren Hernandez M.D. [address] [place] [address] [facility] Region Referral ID Status Reason Start Date Expiration Date V isits Requested Visits Authorized [id number] Authorized 03/12/2023 03/11/2024 10 10 TENANCE ADVISOR Reason for Visit * Radiation Therapy (Routine) - Authorized Specialty Diagnoses / Procedures Referred By Diamond montemayor Referred To Contact Diagnoses Malignant Neoplasm Of Oropharynx (HCC) Procedures Management Visit Lauren Hernandez M.D. [address] [place] [address] [facility] Region Referral ID Status Reason Start Date Expiration Date V isits Requested Visits Authorized [id number] Authorized 03/12/2023 03/11/2024 10 10 Encounter Details Date Type Department Care Team (Latest Contact Info) Description 04/02/2023 7:49 AM MAINTENANCE ADVISOR - 04/02/2023 3:59 PM MAINTENANCE ADVISOR Hospital Encounter Department of Radiation Oncology in [address] [phone] Lauren Hernandez M.D. [address] [place] [address] Malignant Neoplasm Of Oropharynx (HCC) Social History [...] your living situation today? I have a [facility] place to live 03/01/2023 Sex and Gender Information Value Date Recorded Sex Assigned at Male 03/01/2023 1:25 PM MAINTENANCE ADVISOR Gender Identity Male 03/01/2023 1:25 PM MAINTENANCE ADVISOR Sexual Orientation Not on file documented as of this encounter Last Filed Vital Signs Vital Sign Reading Time Taken Comments Blood Pressure 115/67 04/02/2023 8:39 AM MAINTENANCE ADVISOR Pulse 68 04/02/2023 8:39 AM MAINTENANCE ADVISOR Temperature 36.6 ??C (97.8 ??F) 04/02/2023 8:39 AM CS T Respiratory Rate - - Oxygen Saturation - - Inhaled Oxygen Concentration - - Weight 123 kg (270 lb 15.1 oz) 04/02/2023 8:39 A M MAINTENANCE ADVISOR Height - - Body Mass Index 42.53 03/26/2023 9:06 AM MAINTENANCE ADVISOR documented in this encounter Medications at [...] the care of Dr. Wu at [facility]. Treatment Course: 1xOpx Plan ID Fractions [...] by: Ramandeep Sanz R.N. 04/02/2023 9:45 AM MAINTENANCE ADVISOR TENANCE ADVISOR documented in this encounter Plan of Treatment Upcoming Encounters Date Type Department Care Team (Late st Contact Info) Description 05/08/2023 8:00 AM MAINTENANCE ADVISOR Appointment Department of Radiation Oncology in [address] [phone] Lauren Hernandez M.D. [address] [place] [phone] 05/11/2023 8:15 AM MAINTENANCE ADVISOR Appointment Department of Radiation Oncology in [address] [phone] Lauren Hernandez M.D. [address] [place] [phone] Scheduled Orders Name Type Priority Associated Diagnoses Orde r Schedule Management Visit Radiation Oncology Routine Malignant Neoplasm Of Oropharynx (HCC) Once for 1 Occurrences starting 04/02/2023 until 04/02/2023 documented as of this encounter Visit Diagnoses Diagnosis Malignant Neoplasm Of Oropharynx (HCC) documented in this encounter
--- OUTSIDE RECORDS SUMMARY | 2023-05-07 11:01 | XMS_ITS | Encounter Summary ---
Author Name Unknown Organization [facility] Address [address] [place] [address] Care Team Providers Care Teacher Dancing Name Role Phone Unavailable Primary Care Provider Unavailabl e Reason for Visit * Radiation Therapy (Routine) - Authorized Specialty Diagnoses / Procedures Referred By Contac t Referred To Contact Diagnoses Malignant Neoplasm Of Oropharynx (HCC) Procedures Prior Auth Rad Tx [place] IMRT COMPLEX IMRT Lauren Hernandez M.D. [address] [place] [address] [facility] Radiation Oncology at [address] [address] Referral ID Status Reason Start Date Expiration Date V isits Requested Visits Authorized [id number] Authorized 03/23/2023 03/11/2024 35 35 Encounter Details Date Type Department Care Team (Latest Contact Info) Description 04/06/2023 11:37 AM LAP WINDING MACHINE OPERATOR - 04/06/2023 11:59 PM [facility] Hospital Encounter Department of Radiation Oncology in [address] [phone] Lauren Hernandez M.D. [address] [place] [phone] Discharge Disposition: Home or Self Care Social [...] your living situation today? I have a [facility] place to live 03/01/2023 Sex and Gender Information Value Date Recorded Sex Assigned at Male 03/01/2023 1:25 PM LAP WINDING MACHINE OPERATOR Gender Identity Male 03/01/2023 1:25 PM LAP WINDING MACHINE OPERATOR Sexual Orientation Not on file [...] st Contact Info) Description 05/08/2023 8:00 AM LAP WINDING MACHINE OPERATOR Appointment Department of Radiation Oncology in [place], [place] [address] [place] [phone] Lauren Hernandez M.D. [address] [place] [address] 05/11/2023 8:15 AM LAP WINDING MACHINE OPERATOR Appointment Department of Radiation Oncology in [place], [place] [address] [place] [address] Lauren Hernandez M.D. [address] [place] [phone] documented as of this encounter Visit Diagnoses Not on filedocumented in this encounter
--- OUTSIDE RECORDS SUMMARY | 2023-05-07 11:01 | XMS_ITS | Encounter Summary ---
Author Name Unknown Organization [facility] Address [address] [place] [address] Care Team Providers Care Banking Pin Adjuster Name Role Phone Unavailable Primary Care Provider Unavailabl e Reason for Referral * Medication Prior Authorization - Closed Specialty Diagnoses / Procedures Referred By Diamond montemayor Referred To Contact Lauren Hernandez M.D. [address] [place] [address] Referral ID Status Reason Start Date Expiration Date Visits Re quested Visits Authorized [id number] Closed 1 1 C BUSTER * Radiation Therapy (Routine) - Authorized Specialty Diagnoses / Procedures Referred By Contac t Referred To Contact Diagnoses Malignant Neoplasm Of Oropharynx (HCC) Procedures Management Visit Lauren Hernandez M.D. [address] [place] [address] [facility] Referral ID Status Reason Start Date Expiration Date V isits Requested Visits Authorized [id number] Authorized 03/12/2023 03/11/2024 10 10 C BUSTER Reason for Visit * Radiation Therapy (Routine) - Authorized Specialty Diagnoses / Procedures Referred By Contac t Referred To Contact Diagnoses Malignant Neoplasm Of Oropharynx (HCC) Procedures Management Visit Lauren Hernandez M.D. [address] [place] [address] [facility] Region Referral ID Status Reason Start Date Expiration Date V isits Requested Visits Authorized [id number] Authorized 03/12/2023 03/11/2024 10 10 Encounter Details Date Type Department Care Team (Latest Contact Info) Description 04/07/2023 7:51 AM BRONC BUSTER - 04/07/2023 3:25 PM BRONC BUSTER Hospital Encounter Department of Radiation Oncology in [place], [place] [address] [place] [phone] Lauren Hernandez M.D. [address] [place] [phone] Malignant Neoplasm Of Oropharynx (HCC) Social History [...] Sex Assigned at Male 03/01/2023 1:25 PM BRONC BUSTER Gender Identity Male 03/01/2023 1:25 PM BRONC BUSTER Sexual Orientation Not on file documented as of this encounter Last Filed Vital Signs Vital Sign Reading Time Taken Comments Blood Pressure 119/75 04/07/2023 8:25 AM BRONC BUSTER Pulse 66 04/07/2023 8:25 AM BRONC BUSTER Temperature 36.1 ??C (97 ??F) 04/07/2023 8:25 AM BRONC BUSTER Respiratory Rate - - Oxygen Saturation - - Inhaled Oxygen Concentration - - Weight 120 kg (264 lb 15.9 oz) 04/07/2023 8:25 A M BRONC BUSTER Height - - Body Mass Index 41.59 03/26/2023 9:06 AM BRONC BUSTER documented in this encounter Medications at Time [...] under the care of Dr. Wu at [facility]. Treatment Course: 1xOpx Plan ID Fractions [...] by: Ramandeep Sanz R.N. 04/07/2023 10:18 AM BRONC BUSTER C BUSTER documented in this encounter Plan of Treatment Upcoming Encounters Date Type Department Care Team (Late st Contact Info) Description 05/08/2023 8:00 AM BRONC BUSTER Appointment Department of Radiation Oncology in [place], [place] [address] [place] [address] Lauren Hernandez M.D. [address] [place] [address] 05/11/2023 8:15 AM BRONC BUSTER Appointment Department of Radiation Oncology in [place], [place] [address] [place] [address] Lauren Hernandez M.D. [address] [place] [address] Scheduled Orders Name Type Priority Associated Diagnoses Orde r Schedule Management Visit Radiation Oncology Routine Malignant Neoplasm Of Oropharynx (HCC) Once for 1 Occurrences starting 04/07/2023 until 04/07/2023 documented as of this encounter Visit Diagnoses Diagnosis Malignant Neoplasm Of Oropharynx (HCC) documented in this encounter
--- OUTSIDE RECORDS SUMMARY | 2023-05-07 11:01 | XMS_ITS | Encounter Summary ---
Author Name Unknown Organization [facility] Address [address] [place] [address] Team [address] Care [address] Project Manager Name Role Phone Unavailable Primary Care Provider Unavailabl e Reason for Visit * Radiation Therapy (Routine) - Authorized Specialty Diagnoses / Procedures Referred By Contac t Referred To Contact Diagnoses Malignant Neoplasm Of Oropharynx (HCC) Procedures Prior Auth Rad Tx [place] IMRT COMPLEX IMRT Lauren Hernandez M.D. [address] [place] [address] [facility] Radiation Oncology at [address] [address] Referral ID Status Reason Start Date Expiration Date V isits Requested Visits Authorized [id number] Authorized 03/23/2023 03/11/2024 35 35 Encounter Details Date Type Department Care Team (Latest Contact Info) Description 03/27/2023 8:04 AM EMAIL MARKETING EXECUTIVE - 03/27/2023 11:59 PM [facility] Hospital Encounter Department of Radiation Oncology in [address] [phone] Lauren Hernandez M.D. [address] [place] [phone] Discharge Disposition: Home or Self Care Social [...] your living situation today? I have a [facility] place [facility] 03/01/2023 Sex and Gender Information Value Date Recorded Sex Assigned at Male 03/01/2023 1:25 PM EMAIL MARKETING EXECUTIVE Gender Identity Male 03/01/2023 1:25 PM EMAIL MARKETING EXECUTIVE Sexual Orientation Not on file documented as [...] st Contact Info) Description 05/08/2023 8:00 AM EMAIL MARKETING EXECUTIVE Appointment Department of Radiation Oncology in [place], [place] [address] [place] [address] Lauren Hernandez M.D. [address] [place] [phone] 05/11/2023 8:15 AM EMAIL MARKETING EXECUTIVE Appointment Department of Radiation Oncology in [place], [place] [address] [place] [address] Lauren Hernandez M.D. [address] [place] [address] documented as of this encounter Visit Diagnoses Not on filedocumented in this encounter
--- OUTSIDE RECORDS SUMMARY | 2023-05-07 11:01 | XMS_ITS | Encounter Summary ---
Author Name Unknown Organization [facility] Address [address] [place] [address] Care Team Providers Care Assembler Radio And Electrical Name Role Phone Unavailable Primary Care Provider Unavailabl e Reason for Visit * Radiation Therapy (Routine) - Authorized Specialty Diagnoses / Procedures Referred By Contac t Referred To Contact Diagnoses Malignant Neoplasm Of Oropharynx (HCC) Procedures Prior Auth Rad Tx [place] IMRT COMPLEX IMRT Lauren Hernandez M.D. [address] [place] [address] [facility] Radiation Oncology at [address] [address] Referral ID Status Reason Start Date Expiration Date V isits Requested Visits Authorized [id number] Authorized 03/23/2023 03/11/2024 35 35 Encounter Details Date Type Department Care Team (Latest Contact Info) Description 04/01/2023 7:47 AM ENGINEERING PATTERNMAKER - 04/01/2023 11:59 PM [facility] Hospital Encounter Department of Radiation Oncology in [address] [phone] Lauren Hernandez M.D. [address] [place] [phone] Discharge Disposition: Home or Self Care Social [...] your living situation today? I have a [facility] place to live 03/01/2023 Sex and Gender Information Value Date Recorded Sex Assigned at Male 03/01/2023 1:25 PM ENGINEERING PATTERNMAKER Gender Identity Male 03/01/2023 1:25 PM ENGINEERING PATTERNMAKER Sexual Orientation Not on file documented as [...] st Contact Info) Description 05/08/2023 8:00 AM ENGINEERING PATTERNMAKER Appointment Department of Radiation Oncology in [place], [place] [address] [place] [address] Lauren Hernandez M.D. [address] [place] [phone] 05/11/2023 8:15 AM ENGINEERING PATTERNMAKER Appointment Department of Radiation Oncology in [place], [place] [address] [place] [address] Lauren Hernandez M.D. [address] [place] [address] documented as of this encounter Visit Diagnoses Not on filedocumented in this encounter
--- OUTSIDE RECORDS SUMMARY | 2023-05-07 11:01 | XMS_ITS | Encounter Summary ---
Author Name Unknown Organization [facility] Address [address] [place] [address] Care Team Providers Care Director Of Infection Prevention Name Role Phone Unavailable Primary Care Provider Unavailabl e Reason for Visit * Radiation Therapy (Routine) - Authorized Specialty Diagnoses / Procedures Referred By Contac t Referred To Contact Diagnoses Malignant Neoplasm Of Oropharynx (HCC) Procedures Prior Auth Rad Tx [place] IMRT COMPLEX IMRT Lauren Hernandez M.D. [address] [place] [address] [facility] Radiation Oncology at [address] [phone] Referral ID Status Reason Start Date Expiration Date V isits Requested Visits Authorized [id number] Authorized 03/23/2023 03/11/2024 35 35 Encounter Details Date Type Department Care Team (Latest Contact Info) Description 03/31/2023 7:50 AM AIRBRUSH ARTIST TECHNICAL - 03/31/2023 11:59 PM [facility] Hospital Encounter Department of Radiation Oncology in [address] [phone] Lauren Hernandez M.D. [address] [place] [phone] Discharge Disposition: Home or Self Care Social [...] your living situation today? I have a [facility] place to live 03/01/2023 Sex and Gender Information Value Date Recorded Sex Assigned at Male 03/01/2023 1:25 PM AIRBRUSH ARTIST TECHNICAL Gender Identity Male 03/01/2023 1:25 PM AIRBRUSH ARTIST TECHNICAL Sexual Orientation Not on file documented as [...] st Contact Info) Description 05/08/2023 8:00 AM AIRBRUSH ARTIST TECHNICAL Appointment Department of Radiation Oncology in [place], [place] [address] [place] [address] Lauren Hernandez M.D. [address] [place] [phone] 05/11/2023 8:15 AM AIRBRUSH ARTIST TECHNICAL Appointment Department of Radiation Oncology in [place], [place] [address] [place] [address] Lauren Hernandez M.D. [address] [place] [address] documented as of this encounter Visit Diagnoses Not on filedocumented in this encounter
--- OUTSIDE RECORDS SUMMARY | 2023-05-07 11:01 | XMS_ITS | Encounter Summary ---
Author Name Unknown Organization [facility] Address [address] [place] [address] Care Team Providers Care Grounds Keeper Name Role Phone Unavailable Primary Care Provider Unavailabl e Reason for Visit * Radiation Therapy (Routine) - Authorized Specialty Diagnoses / Procedures Referred By Contac t Referred To Contact Diagnoses Malignant Neoplasm Of Oropharynx (HCC) Procedures Prior Auth Rad Tx [place] IMRT COMPLEX IMRT Lauren Hernandez M.D. [address] [place] [phone] [facility] Rad[facility] Oncology at [place] [address] [place] [phone] Referral ID Status Reason Start Date Expiration Date V isits Requested Visits Authorized [id number] Authorized 03/23/2023 03/11/2024 35 35 Encounter Details Date Type Department Care Team (Late st Contact Info) Description 04/09/2023 8:02 AM [facility] Hospital Encounter Department of Radiation Oncology in [place], [place] [address] [place] [phone] Lauren Hernandez M.D. [address] [place] [phone] Social History Tobacco Use Types Packs/Day Years [...] your living situation today? I have a [facility] place to live 03/01/2023 Sex and Gender Information Value Date Recorded Sex Assigned at Male 03/01/2023 1:25 PM RECRUITER SPECIALIST Gender Identity Male 03/01/2023 1:25 PM RECRUITER SPECIALIST Sexual Orientation Not on file documented as of this encounter Plan of Treatment Upcoming Encounters Date Type Department Care Team (Late st Contact Info) Description 05/08/2023 8:00 AM RECRUITER SPECIALIST Appointment Department of Radiation Oncology in [place], [place] [address] [place] [phone] Lauren Hernandez M.D. [address] [place] [address] 05/11/2023 8:15 AM RECRUITER SPECIALIST Appointment Department of Radiation Oncology in [place], [place] [address] [place] [address] Lauren Hernandez M.D. [address] [place] [address] documented as of this encounter Visit Diagnoses Not on filedocumented in this encounter
--- OUTSIDE RECORDS SUMMARY | 2023-05-07 11:01 | XMS_ITS | Encounter Summary ---
Author Name Unknown Organization [facility] Address [address] [place] [address] Care Team Providers Care Reset Merchandiser Name Role Phone Unavailable Primary Care Provider Unavailabl e Reason for Visit * Radiation Therapy (Routine) - Authorized Specialty Diagnoses / Procedures Referred By Contac t Referred To Contact Diagnoses Malignant Neoplasm Of Oropharynx (HCC) Procedures Prior Auth Rad Tx [place] IMRT COMPLEX IMRT Lauren Hernandez M.D. [address] [place] [address] [facility] Radiation Oncology at [address] [address] Referral ID Status Reason Start Date Expiration Date V isits Requested Visits Authorized [id number] Authorized 03/23/2023 03/11/2024 35 35 Encounter Details Date Type Department Care Team (Latest Contact Info) Description 04/02/2023 7:49 AM LOKIE ENGINEER - 04/02/2023 11:59 PM [facility] Hospital Encounter Department of Radiation Oncology in [address] [phone] Lauren Hernandez M.D. [address] [place] [phone] Discharge Disposition: Home or Self Care Social [...] your living situation today? I have a [facility] place to live 03/01/2023 Sex and Gender Information Value Date Recorded Sex Assigned at Male 03/01/2023 1:25 PM LOKIE ENGINEER Gender Identity Male 03/01/2023 1:25 PM LOKIE ENGINEER Sexual Orientation Not on file documented [...] st Contact Info) Description 05/08/2023 8:00 AM LOKIE ENGINEER Appointment Department of Radiation Oncology in [place], [place] [address] [place] [address] Lauren Hernandez M.D. [address] [place] [phone] 05/11/2023 8:15 AM LOKIE ENGINEER Appointment Department of Radiation Oncology in [place], [place] [address] [place] [address] Lauren Hernandez M.D. [address] [place] [address] documented as of this encounter Visit Diagnoses Not on filedocumented in this encounter
--- OUTSIDE RECORDS SUMMARY | 2023-05-07 11:01 | XMS_ITS | Encounter Summary ---
Author Name Unknown Organization [facility] Address [address] [place] [address] Care Team Providers Care Paper Colorer Name Role Phone Unavailable Primary Care Provider Unavailabl e Reason for Visit * Radiation Therapy (Routine) - Authorized Specialty Diagnoses / Procedures Referred By Contac t Referred To Contact Diagnoses Malignant Neoplasm Of Oropharynx (HCC) Procedures Prior Auth Rad Tx [place] IMRT COMPLEX IMRT Lauren Hernandez M.D. [address] [place] [address] [facility] Radiation Oncology at [address] [phone] Referral ID Status Reason Start Date Expiration Date V isits Requested Visits Authorized [id number] Authorized 03/23/2023 03/11/2024 35 35 Encounter Details Date Type Department Care Team (Latest Contact Info) Description 04/03/2023 9:53 AM JAVA LEAD ARCHITECT - 04/03/2023 11:59 PM [facility] Hospital Encounter Department of Radiation Oncology in [address] [phone] Lauren Hernandez M.D. [address] [place] [phone] Discharge Disposition: Home or Self Care Social [...] Assigned at Male 03/01/2023 1:25 PM JAVA LEAD ARCHITECT Gender Identity Male 03/01/2023 1:25 PM JAVA LEAD ARCHITECT Sexual Orientation Not on file documented [...] Contact Info) Description 05/08/2023 8:00 AM JAVA LEAD ARCHITECT Appointment Department of Radiation Oncology in [place], [place] [address] [place] [phone] Lauren Hernandez M.D. [address] [place] [address] 05/11/2023 8:15 AM JAVA LEAD ARCHITECT Appointment Department of Radiation Oncology in [place], [place] [address] [place] [address] Lauren Hernandez M.D. [address] [place] [phone] documented as of this encounter Visit Diagnoses Not on filedocumented in this encounter
--- OUTSIDE RECORDS SUMMARY | 2023-05-07 11:01 | XMS_ITS | Encounter Summary ---
Author Name Unknown Organization [facility] Address [address] [place] [address] Care Team Providers Care Blower Feeder Dyed Raw Stock Name Role Phone Unavailable Primary Care Provider Unavailabl e Reason for Visit * Radiation Therapy (Routine) - Authorized Specialty Diagnoses / Procedures Referred By Contac t Referred To Contact Diagnoses Malignant Neoplasm Of Oropharynx (HCC) Procedures Prior Auth Rad Tx [place] IMRT COMPLEX IMRT Lauren Hernandez M.D. [address] [place] [phone] [facility] Radiation Oncology at [place] [address] [place] [phone] Referral ID Status Reason Start Date Expiration Date V isits Requested Visits Authorized [id number] Authorized 03/23/2023 03/11/2024 35 35 Encounter Details Date Type Department Care Team (Late st Contact Info) Description 04/07/2023 7:50 AM [facility] Hospital Encounter Department of Radiation Oncology in [place], [place] [address] [place] [phone] Lauren Hernandez M.D. [address] [place] [phone] Social History Tobacco Use Types Packs/Day Years [...] Sex Assigned at Male 03/01/2023 1:25 PM SLAB LIFTING SUPERVISOR Gender Identity Male 03/01/2023 1:25 PM SLAB LIFTING SUPERVISOR Sexual Orientation Not on file documented as of this encounter Plan of Treatment Upcoming Encounters Date Type Department Care Team (Late st Contact Info) Description 05/08/2023 8:00 AM SLAB LIFTING SUPERVISOR Appointment Department of Radiation Oncology in [place], [place] [address] [place] [phone] Lauren Hernandez M.D. 200 [place] [address] 05/11/2023 8:15 AM SLAB LIFTING SUPERVISOR Appointment Department of Radiation Oncology in [place], [place] [address] [place] [address] Lauren Hernandez M.D. [address] [place] [address] documented as of this encounter Visit Diagnoses Not on filedocumented in this encounter
--- OUTSIDE RECORDS SUMMARY | 2023-05-07 11:01 | XMS_ITS | Encounter Summary ---
Author Name Unknown Organization [facility] Address [address] [place] [address] Care Team Providers Care Jointer Submarine Cable Name Role Phone Unavailable Primary Care Provider Unavailabl e Reason for Visit * Radiation Therapy (Routine) - Authorized Specialty Diagnoses / Procedures Referred By Contac t Referred To Contact Diagnoses Malignant Neoplasm Of Oropharynx (HCC) Procedures Prior Auth Rad Tx [place] IMRT COMPLEX IMRT Lauren Hernandez M.D. [address] [place] [address] [facility] Radiation Oncology at [address] [phone] Referral ID Status Reason Start Date Expiration Date V isits Requested Visits Authorized [id number] Authorized 03/23/2023 03/11/2024 35 35 Encounter Details Date Type Department Care Team (Latest Contact Info) Description 03/30/2023 7:46 AM HOUSEFELLOW - 03/30/2023 11:59 PM [facility] Hospital Encounter Department of Radiation Oncology in [address] [phone] Lauren Hernandez M.D. [address] [place] [phone] Discharge Disposition: Home or Self Care Social [...] your living situation today? I have a [facility] place to live 03/01/2023 Sex and Gender Information Value Date Recorded Sex Assigned at Male 03/01/2023 1:25 PM HOUSEFELLOW Gender Identity Male 03/01/2023 1:25 PM HOUSEFELLOW Sexual Orientation Not on file documented as [...] st Contact Info) Description 05/08/2023 8:00 AM HOUSEFELLOW Appointment Department of Radiation Oncology in [place], [place] [address] [place] [address] Lauren Hernandez M.D. [address] [place] [phone] 05/11/2023 8:15 AM HOUSEFELLOW Appointment Department of Radiation Oncology in [place], [place] [address] [place] [address] Lauren Hernandez M.D. [address] [place] [address] documented as of this encounter Visit Diagnoses Not on filedocumented in this encounter
--- OUTSIDE RECORDS SUMMARY | 2023-05-07 11:01 | XMS_ITS | Encounter Summary ---
Author Name Unknown Organization [facility] Address [address] [place] [address] Care Team Providers Care Weaver Hand Name Role Phone Unavailable Primary Care Provider Unavailabl e Reason for Visit * Radiation Therapy (Routine) - Authorized Specialty Diagnoses / Procedures Referred By Contac t Referred To Contact Diagnoses Malignant Neoplasm Of Oropharynx (HCC) Procedures Prior Auth Rad Tx [place] IMRT COMPLEX IMRT Lauren Hernandez M.D. [address] [place] [phone] [facility] Radiation Oncology at [place] [address] [place] [phone] Referral ID Status Reason Start Date Expiration Date V isits Requested Visits Authorized [id number] Authorized 03/23/2023 03/11/2024 35 35 Encounter Details Date Type Department Care Team (Late st Contact Info) Description 04/08/2023 8:01 AM [facility] Hospital Encounter Department of Radiation Oncology in [place], [place] [address] [place] [phone] Lauren Hernandez M.D. [address] [place] [phone] Social History Tobacco Use Types Packs/Day Years [...] Sex Assigned at Male 03/01/2023 1:25 PM PHYSICAL SCIENTIST Gender Identity Male 03/01/2023 1:25 PM PHYSICAL SCIENTIST Sexual Orientation Not on file documented as of this encounter Plan of Treatment Upcoming Encounters Date Type Department Care Team (Late st Contact Info) Description 05/08/2023 8:00 AM PHYSICAL SCIENTIST Appointment Department of Radiation Oncology in [place], [place] [address] [place] [phone] Lauren Hernandez M.D. [address] [place] [address] 05/11/2023 8:15 AM PHYSICAL SCIENTIST Appointment Department of Radiation Oncology in [place], [place] [address] [place] [address] Lauren Hernandez M.D. [address] [place] [address] documented as of this encounter Visit Diagnoses Not on filedocumented in this encounter
--- OUTSIDE RECORDS SUMMARY | 2023-05-07 11:01 | XMS_ITS | Encounter Summary ---
Author Name Unknown Organization [facility] Address [address] [place] [address] Care Team Providers Care College Or University Registrar Name Role Phone Unavailable Primary Care Provider Unavailabl e Reason for Referral * Outpatient (Routine) - Authorized Specialty Diagnoses / Procedures Referred By Contac t Referred To Contact Nutrition Diagnoses Malignant Neoplasm Of Oropharynx (HCC) Ashlee Go APRN, C.N.P., D.N.P. [address] [place] [phone] [facility] Region Referral ID Status Reason Start Date Expiration Date V isits Requested Visits Authorized [id number] Authorized 03/12/2023 03/11/2024 5 5 TER CHECKER Reason for Visit * Outpatient (Routine) - Authorized Specialty Diagnoses / Procedures Referred By Contac t Referred To Contact Nutrition Diagnoses Malignant Neoplasm Of Oropharynx (HCC) Ashlee Go APRN, C.N.P., D.N.P. [address] [place] [phone] [facility] Region Referral ID Status Reason Start Date Expiration Date V isits Requested Visits Authorized [id number] Authorized 03/12/2023 03/11/2024 5 5 Encounter Details Date Type Department Care Team (Late st Contact Info) Description 04/09/2023 8:03 AM COUNTER CHECKER Hospital Encounter Department of Radiation Oncology in [place], [place] [address] [place] [address] Ashlee Go APRN, C.N.P., D.N.P. [address] [place] [address] Poly Gill, NIDA [address] [place] [address] Malignant Neoplasm Of Oropharynx (HCC) [...] your living situation today? I have a [facility] place to live 03/01/2023 Sex and Gender Information Value Date Recorded Sex Assigned at Male 03/01/2023 1:25 PM COUNTER CHECKER Gender Identity Male 03/01/2023 1:25 PM COUNTER CHECKER Sexual Orientation Not on file documented as [...] 23. He is also receiving chemotherapy at [facility]. PAST MEDICAL HISTORY The medical history was reviewed today from the electronic medical record. Please see the electronic medical record for complete details of the PAST MEDICAL HISTORY. ASSESSMENT Relevant Social and Family History Mr. Roland lives with his spouse, Eva in [place]. Nutrition Focused Physical Findings Mouth/esophagus/Throat: Mild sore [...] (Adj. Wt.) Date: 03/13/23 Total Calorie Needs: [phone] (HB basal to basal + 20%) Estimated [...] withquestions. Time spent with patient (minutes): 30 TER CHECKER documented in this encounter Plan of Treatment Upcoming Encounters Date Type Department Care Team (Late st Contact Info) Description 05/08/2023 8:00 AM COUNTER CHECKER Appointment Department of Radiation Oncology in [place], [place] [address] [place] [address] Lauren Hernandez M.D. [address] [place] [phone] 05/11/2023 8:15 AM COUNTER CHECKER Appointment Department of Radiation Oncology in [place], [place] [address] [place] [address] Lauren Hernandez M.D. [address] [place] [phone] Scheduled Referrals Name Type Priority Associated Diagnoses Order Schedule Nutrition - Medical nutrition therapy consult (clinic) Outpatient Referral Routine Malignant Neoplasm Of Oropharynx (HCC) Once for 1 Occurrences starting 04/09/2023 until 04/09/2023 documented as of this encounter Visit Diagnoses Diagnosis Malignant Neoplasm Of Oropharynx (HCC) documented in this encounter
--- OUTSIDE RECORDS SUMMARY | 2023-05-07 11:02 | XMS_ITS | Encounter Summary ---
Author Name Unknown Organization [facility] Address [address] [place] [address] Care Team Providers Care Watch Train Assembler Name Role Phone Unavailable Primary Care Provider Unavailabl e Reason for Referral * Outpatient (Routine) - Authorized Specialty Diagnoses / Procedures Referred By Diamond t Referred To Contact Radiation Oncology Lauren Hernandez M.D. [address] [place] [address] [facility] Region Referral ID Status Reason Start Date Expiration Date V isits Requested Visits Authorized [id number] Authorized 03/12/2023 03/11/2026 10 10 F TECHNICIAN X RAY * Specialty Diagnoses / Procedures Referred By Contac t Referred To Contact Terri Crowe P.A.-C., M.S. [address] [place] [address] [facility] Region Referral ID Status Reason Start Date Expiration Date Visits Re quested Visits Authorized F TECHNICIAN X RAY * Radiation Therapy (Routine) - Authorized Specialty Diagnoses / Procedures Referred By Contac t Referred To Contact Diagnoses Malignant Neoplasm Of Oropharynx (HCC) Procedures Management Visit Lauren Hernandez M.D. [address] [place] [address] [facility] Region Referral ID Status Reason Start Date Expiration Date V isits Requested Visits Authorized [id number] Authorized 03/12/2023 03/11/2024 10 10 F TECHNICIAN X RAY * Radiation Therapy (Routine) - Authorized Specialty Diagnoses / Procedures Referred By Contac t Referred To Contact Diagnoses Malignant Neoplasm Of Oropharynx (HCC) Procedures Prior Auth Rad Tx [place] IMRT COMPLEX IMRT Lauren Hernandez M.D. [address] [place] [address] [facility] Radiation Oncology at [place] [address] [place] [address] Referral ID Status Reason Start Date Expiration Date V isits Requested Visits Authorized [id number] Authorized 03/23/2023 03/11/2024 35 35 F TECHNICIAN X RAY * Radiation Therapy (Routine) - Closed Specialty Diagnoses / Procedures Referred By Contac t Referred To Contact Diagnoses Malignant Neoplasm Of Oropharynx (HCC) Procedures Initial Rad Onc Treatment Planning CT Simulation Lauren Hernandez M.D. [address] [place] [phone] [facility] Region Referral ID Status Reason Start Date Expiration Date Visits Re quested Visits Authorized [id number] Closed 03/12/2023 03/11/2024 1 1 F TECHNICIAN X RAY Encounter Details Date Type Department Care Team (Late st Contact Info) Description 03/12/2023 Orders Only Department of Radiation Oncology in [place], [place] [address] [place] [address] Terri Crowe P.A.-C., M.S. [address] [place] [address] Malignant Neoplasm Of Oropharynx (HCC) (Primary Dx) [...] Sex Assigned at Male 03/01/2023 1:25 PM CHIEF TECHNICIAN X RAY Gender Identity Male 03/01/2023 1:25 PM CHIEF TECHNICIAN X RAY Sexual Orientation Not on file documented as of this encounter Plan of Treatment Upcoming Encounters Date Type Department Care Team (Late st Contact Info) Description 05/08/2023 8:00 AM CHIEF TECHNICIAN X RAY Appointment Department of Radiation Oncology in [place], [place] [address] [place] [phone] Lauren Hernandez M.D. [address] [place] [address] 05/11/2023 8:15 AM CHIEF TECHNICIAN X RAY Appointment Department of Radiation Oncology in [place], [place] [address] [place] [phone] Lauren Hernandez M.D. [address] [place] [phone] Scheduled Orders Name Type Priority Associated Diagnoses [...] Treatment Planning CT Simulation (03/13/2023 2:15 PM CHIEF TECHNICIAN X RAY) Narrative RENE LUQUE - 03/13/2023 2:15 PM CHIEF TECHNICIAN X RAY Gregoria Vega, RTT ? 03/13/2023 ??2:39 PM Initial Rad Onc Treatment Planning CT Simulation Performed by: Lauren Hernandez M.D. Authorized by: Lauren Hernandez M.D. ?? Lauren Hernandez M.D. RADIATION ONCOLOG Y ORDERABLES LÓPEZ JASSONDolly aburto documented in this encounter Visit Diagnoses Diagnosis Malignant Neoplasm Of Oropharynx (HCC)- Primary Malignant Neoplasm Of Oropharynx (HCC) documented in this encounter
--- OUTSIDE RECORDS SUMMARY | 2023-05-07 11:02 | XMS_ITS | Encounter Summary ---
Author Name Unknown Organization [facility] Address [address] [place] [address] Care Team Providers Care Heating Engineer Name Role Phone Unavailable Primary Care Provider Unavailabl e Encounter Details Date Type Department Care Team (Late st Contact Info) Description 03/12/2023 Orders Only Department of Radiation Oncology in [place], [place] [address] [place] [address] Leesa Zamora Malignant Neoplasm Of Oropharynx (HCC) [...] living situation today? I have a [facility] place to live 03/01/2023 Sex and Gender Information Value Date Recorded Sex Assigned at Male 03/01/2023 1:25 PM INTERNAL CORROSION SPECIALIST Gender Identity Male 03/01/2023 1:25 PM INTERNAL CORROSION SPECIALIST Sexual Orientation Not on file documented as of this encounter Plan of Treatment Upcoming Encounters Date Type Department Care Team (Late st Contact Info) Description 05/08/2023 8:00 AM INTERNAL CORROSION SPECIALIST Appointment Department of Radiation Oncology in [place], [place] [address] [place] [phone] Lauren Hernandez M.D. [address] [place] [address] 05/11/2023 8:15 AM INTERNAL CORROSION SPECIALIST Appointment Department of Radiation Oncology in [place], [place] [address] [place] [address] Lauren Hernandez M.D. [address] [place] [address] documented as of this encounter Visit Diagnoses Diagnosis Malignant Neoplasm Of Oropharynx (HCC)- Primary documented in this encounter
--- OUTSIDE RECORDS SUMMARY | 2023-05-07 11:02 | XMS_ITS | Encounter Summary ---
Author Name Unknown Organization [facility] Address [address] [place] [address] Care Team Providers Care Chemical Engineering Intern Name Role Phone Unavailable Primary Care Provider Unavailabl e Encounter Details Date Type Department Care Team (Latest Contact Info) Description 03/13/2023 11:30 AM FEATURES REPORTER Clinical Support Department of Dental Specialties in [place], [place] [address] [place] [address] Joe Moseley B.D.S. [address] [place] [address] Malignant Neoplasm Of Oropharynx (HCC) (Primary Dx); [...] Sex Assigned at Male 03/01/2023 1:25 PM FEATURES REPORTER Gender Identity Male 03/01/2023 1:25 PM FEATURES REPORTER Sexual Orientation Not on file documented as [...] today along with instructions for use: 1. [place] and floss prior to use of fluoride [...] who completed documentation and performed the service(s). URES REPORTER documented in this encounter Plan of Treatment Upcoming Encounters Date Type Department Care Team (Late st Contact Info) Description 05/08/2023 8:00 AM FEATURES REPORTER Appointment Department of Radiation Oncology in [address] [phone] Lauren Hernandez M.D. [address] [place] [phone] 05/11/2023 8:15 AM FEATURES REPORTER Appointment Department of Radiation Oncology in [address] [phone] Lauren Hernandez M.D. 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
--- OUTSIDE RECORDS SUMMARY | 2023-05-07 11:02 | XMS_ITS | Encounter Summary ---
Author Name Unknown Organization [facility] Address [address] [place] [address] Care Team Providers Care Pet Counselor Name Role Phone Unavailable Primary Care Provider Unavailabl e Reason for Visit * Radiation Therapy (Routine) - Authorized Specialty Diagnoses / Procedures Referred By Contac t Referred To Contact Diagnoses Malignant Neoplasm Of Oropharynx (HCC) Procedures Prior Auth Rad Tx [place] IMRT COMPLEX IMRT Lauren Hernandez M.D. [address] [place] [address] [facility] Radiation Oncology at [address] [phone] Referral ID Status Reason Start Date Expiration Date V isits Requested Visits Authorized [id number] Authorized 03/23/2023 03/11/2024 35 35 Encounter Details Date Type Department Care Team (Latest Contact Info) Description 03/23/2023 3:05 PM AIRPORT GUIDE - 03/23/2023 11:59 PM [facility] Hospital Encounter Department of Radiation Oncology in [address] [phone] Lauren Hernandez M.D. [address] [place] [phone] Discharge Disposition: Home or Self Care Social [...] your living situation today? I have a [facility] place to live 03/01/2023 Sex and Gender Information Value Date Recorded Sex Assigned at Male 03/01/2023 1:25 PM AIRPORT GUIDE Gender Identity Male 03/01/2023 1:25 PM AIRPORT GUIDE Sexual Orientation Not on file documented as [...] st Contact Info) Description 05/08/2023 8:00 AM AIRPORT GUIDE Appointment Department of Radiation Oncology in [place], [place] [address] [place] [address] Lauren Hernandez M.D. [address] [place] [phone] 05/11/2023 8:15 AM AIRPORT GUIDE Appointment Department of Radiation Oncology in [place], [place] [address] [place] [address] Lauren Hernandez M.D. [address] [place] [address] documented as of this encounter Visit Diagnoses Not on filedocumented in this encounter
--- OUTSIDE RECORDS SUMMARY | 2023-05-07 11:02 | XMS_ITS | Encounter Summary ---
Author Name Unknown Organization [facility] Address [address] [place] [address] Care Team Providers Care Sizer Machine Name Role Phone Unavailable Primary Care Provider Unavailabl e Reason for Referral * Radiation Therapy (Routine) - Authorized Specialty Diagnoses / Procedures Referred By Diamond montemayor Referred To Contact Diagnoses Malignant Neoplasm Of Oropharynx (HCC) Procedures Management Visit Lauren Hernandez M.D. [address] [place] [address] [facility] Region Referral ID Status Reason Start Date Expiration Date V isits Requested Visits Authorized [id number] Authorized 03/12/2023 03/11/2024 10 10 [facility] WARDEN Reason for Visit * Radiation Therapy (Routine) - Authorized Specialty Diagnoses / Procedures Referred By Diamond montemayor Referred To Contact Diagnoses Malignant Neoplasm Of Oropharynx (HCC) Procedures Management Visit Lauren Hernandez M.D. [address] [place] [address] [facility] Region Referral ID Status Reason Start Date Expiration Date V isits Requested Visits Authorized [id number] Authorized 03/12/2023 03/11/2024 10 10 Encounter Details Date Type Department Care Team (Latest Contact Info) Description 03/26/2023 8:25 AM [facility] WARDEN Hospital Encounter Department of Radiation Oncology in [place] [address] [place] [phone] Lauren Hernandez M[address]D. [address] [place] [address] Malignant Neoplasm Of Tonsil (HCC) (Primary Dx); [...] Sex Assigned at Male 03/01/2023 1:25 PM [facility] WARDEN Gender Identity Male 03/01/2023 1:25 PM [facility] WARDEN Sexual Orientation Not on file documented as of this encounter Last Filed Vital Signs Vital Sign Reading Time Taken Comments Blood Pressure 119/65 03/26/2023 9:00 AM [facility] WARDEN Pulse 56 03/26/2023 9:00 AM CH[facility] WARDEN Temperature 36.3 ??C (97.3 ??F) 03/26/2023 9:00 AM CS T Respiratory Rate - - Oxygen Saturation - - Inhaled Oxygen Concentration - - Weight 124 kg (274 lb 7.6 oz) 03/26/2023 9:00 AM [facility] WARDEN Height - - Body Mass Index - [...] under the care of Dr. Wu at [facility]. Treatment Course: 1xOpx Plan ID Fractions Dose / Fraction (cGy) Dose Treated (cGy) Dose Planned (cGy) First Treatment Last Treatment Elapsed Days F1Opx [phone] 03/23/2023 03/26/2023 3 Course Summary 03/23/2023 03/26/2023 [...] by: Ramandeep Sanz R.N. 03/26/2023 9:50 AM [facility] W[facility] WARDEN documented in this encounter Plan of Treatment Upcoming Encounters Date Type Department Care Team (Late st Contact Info) Description 05/08/2023 8:00 AM [facility] W[facility]EN Appointment Department of Radiation Oncology in [address] [phone] Lauren Hernandez M.D. [address] [place] [phone] 05/11/2023 8:15 AM [facility] Appointment Department of Radiation Oncology in [address] [phone] Lauren Hernandez M.D. 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
--- OUTSIDE RECORDS SUMMARY | 2023-05-07 11:02 | XMS_ITS | Encounter Summary ---
Author Name Unknown Organization [facility] Address [address] [place] [address] Care Team Providers Care Hospital Educator Name Role Phone Unavailable Primary Care Provider Unavailabl e Reason for Visit * Radiation Therapy (Routine) - Authorized Specialty Diagnoses / Procedures Referred By Contac t Referred To Contact Diagnoses Malignant Neoplasm Of Oropharynx (HCC) Procedures Prior Auth Rad Tx [place] IMRT COMPLEX IMRT Lauren Hernandez M.D. [address] [place] [address] [facility] Radiation Oncology at [address] [address] Referral ID Status Reason Start Date Expiration Date V isits Requested Visits Authorized [id number] Authorized 03/23/2023 03/11/2024 35 35 Encounter Details Date Type Department Care Team (Latest Contact Info) Description 03/24/2023 8:12 AM [facility] - 03/24/2023 11:59 PM [facility] Hospital Encounter Department of Radiation Oncology in [address] [phone] Lauren Hernandez M.D. [address] [place] [phone] Discharge Disposition: Home or Self Care Social [...] your living situation today? I have a [facility] place to live 03/01/2023 Sex and Gender Information Value Date Recorded Sex Assigned at Male 03/01/2023 1:25 PM COBOL DEVELOPER Gender Identity Male 03/01/2023 1:25 PM COBOL DEVELOPER Sexual Orientation Not on file documented [...] st Contact Info) Description 05/08/2023 8:00 AM COBOL DEVELOPER Appointment Department of Radiation Oncology in [place], [place] [address] [place] [address] Lauren Hernandez M.D. [address] [place] [phone] 05/11/2023 8:15 AM COBOL DEVELOPER Appointment Department of Radiation Oncology in [place], [place] [address] [place] [address] Lauren Hernandez M.D. [address] [place] [address] documented as of this encounter Visit Diagnoses Not on filedocumented in this encounter
--- OUTSIDE RECORDS SUMMARY | 2023-05-07 11:02 | XMS_ITS | Encounter Summary ---
Author Name Unknown Organization [facility] Address [address] [place] [address] Care Team Providers Care Roller Cleaner Name Role Phone Unavailable Primary Care Provider Unavailabl e Reason for Referral * Outpatient (Routine) - Closed Specialty Diagnoses / Procedures Referred By Diamond montemayor Referred To Contact Radiation Oncology Diagnoses Malignant Neoplasm Of Oropharynx (HCC) Fracisco Barron P.A.-C. [address] [place] [phone] [facility] Referral ID Status Reason Start Date Expiration Date Visits Re quested Visits Authorized [id number] Closed 03/10/2023 03/09/2024 1 1 Scheduling Instructions [place] ETING AGENT Reason for Visit * Outpatient (Routine) - Closed Specialty Diagnoses / Procedures Referred By Diamond montemayor Referred To Contact Radiation Oncology Diagnoses Malignant Neoplasm Of Oropharynx (HCC) Fracisco Barron P.A.-C. [address] [place] [phone] [facility] Referral ID Status Reason Start Date Expiration Date Visits Re quested Visits Authorized [id number] Closed 03/10/2023 03/09/2024 1 1 Encounter Details Date Type Department Care Team (Latest Contact Info) Description 03/13/2023 12:20 PM TICKETING AGENT - 03/13/2023 1:59 PM TICKETING AGENT Hospital Encounter Department of Radiation Oncology in [place], [place] [address] [place] [address] Lauren Hernandez M.D. [address] [place] [address] Malignant Neoplasm Of Tonsil (HCC) (Primary Dx); [...] Sex Assigned at Male 03/01/2023 1:25 PM TICKETING AGENT Gender Identity Male 03/01/2023 1:25 PM TICKETING AGENT Sexual Orientation Not on file documented as of this encounter Last Filed Vital Signs Vital Sign Reading Time Taken Comments Blood Pressure 134/69 03/13/2023 12:56 PM TICKETING AGENT Pulse 60 03/13/2023 12:56 PM TICKETING AGENT Temperature 36.4 ??C (97.6 ??F) 03/13/2023 12:[address] Respiratory Rate - - Oxygen Saturation - - Inhaled Oxygen Concentration - - Weight 122 kg (268 lb 11.9 oz) 03/13/2023 12:56 PM TICKETING AGENT Height - - Body Mass Index - [...] however, he prefers to get treatment in [place]. Referral to colleagues in [place]. 03/10/2023 Other Dentistry appointment at [facility] where the patient's oral health was deemed adequate for chemoradiation. A dental lab order was initiated for [facility] in-house lab for fabrication of fluoride [...] provided under the care ofDr. Wu at [facility]. I discussed the logistics, as well [...] to face patient care. Signed by: Ashlee oG APRN, C.N.P., D.N.P. 03/13/2023 1:54 PM TICKETING AGENT [facility] [address] [place] [address] ETING AGENT Associated attestation - Lauren Hernandez M.D. - 03/18/2023 3:15 PM TICKETING AGENT RADIATION ONCOLOGY CONSULT I saw and evaluated [...] to pursue definitive radiation therapy here in [place] aftermeeting our colleagues in [place]. I have reviewed his imaging, operative, and [...] therapy. We discussed the acuteas well as correction risks, including, but not limited to fatigue, esophagitis, mucositis, skin erythema, xerostomia, lymphedema, fibrosis, trismus, and small risks to the nerves, spinal cord and mandible. They understood and their questions were answered. He wished to proceed with treatment. We tentatively plan on delivering 7000 cGy in 35 fractions starting March 23, 2023 if [place] can start chemotherapy that same week. We have been communicating with Dr. Wu and will know more on . He has already seen our dental colleagues. We will make referrals to Social work and [facility]. We did discuss that if he should be hospitalized or need a PEG tube during treatment that we might haveto transfer his care to [place] for a short period of time. Pt [...] by: Lauren Hernandez M.D. 03/13/2023 4:01 PM TICKETING AGENT documented in this encounter Miscellaneous Notes * Addendum Note - Lauren Hernandez M.D. - 03/13/2023 1:00 PM CSTEncounter addended by: Lauren Hernandez M.D. on: 03/18/2023 3:15 PM Actions taken: Edit attestation on clinical note ETING AGENT documented in this encounter Plan of Treatment Upcoming Encounters Date Type Department Care Team (Late st Contact Info) Description 05/08/2023 8:00 AM TICKETING AGENT Appointment Department of Radiation Oncology in [address] [phone] Lauren Hernandez M.D. [address] [place] [address] 05/11/2023 8:15 AM TICKETING AGENT Appointment Department of Radiation Oncology in [address] [phone] Lauren Hernandez M.D. [address] [place] [address] Scheduled Referrals Name Type Priority Associated Diagnoses [...]
--- OUTSIDE RECORDS SUMMARY | 2023-05-07 11:02 | XMS_ITS | Encounter Summary ---
Author Name Unknown Organization [facility] Address [address] [place] [address] Care Team Providers Care Candy Decorator Name Role Phone Unavailable Primary Care Provider Unavailabl e Reason for Visit * Radiation Therapy (Routine) - Closed Specialty Diagnoses / Procedures Referred By Contac t Referred To Contact Diagnoses Malignant Neoplasm Of Oropharynx (HCC) Procedures Initial Rad Onc Treatment Planning CT Simulation Lauren Hernandez M.D. [address] [place] [address] [facility] Region Referral ID Status Reason Start Date Expiration Date Visits Re quested Visits Authorized [id number] Closed 03/12/2023 03/11/2024 1 1 Encounter Details Date Type Department Care Team (Latest Contact Info) Description 03/13/2023 2:00 PM AUTOMOBILE REPOSSESSOR - 03/13/2023 2:06 PM [facility] Hospital Encounter Department of Radiation Oncology in [place], [place] [address] [place] [phone] Lauren Hernandez M.D. [address] [place] [phone] Anita Kyle R.N. [address] [place] [phone] Malignant Neoplasm Of Tonsil (HCC) (Primary Dx) [...] Sex Assigned at Male 03/01/2023 1:25 PM AUTOMOBILE REPOSSESSOR Gender Identity Male 03/01/2023 1:25 PM AUTOMOBILE REPOSSESSOR Sexual Orientation Not on file documented as [...] st Contact Info) Description 05/08/2023 8:00 AM AUTOMOBILE REPOSSESSOR Appointment Department of Radiation Oncology in [place], [place] [address] [place] [address] Lauren Hernandez M.D. [address] [place] [address] 05/11/2023 8:15 AM AUTOMOBILE REPOSSESSOR Appointment Department of Radiation Oncology in [place], [place] [address] [place] [address] Lauren Hernandez M.D. [address] [place] [address] documented as of this encounter Visit Diagnoses [...] For 1 dose Given 03/13/2023 2:44 PM AUTOMOBILE REPOSSESSOR 120 mL NaCl 0.9 % bolus 35 mL 35 mL, intravenous, at 35 mL/hr, Administer over 1 Hours, Once, On Thu03/13/23 at 1500, For 1 dose New Bag 03/13/2023 2:45 PM AUTOMOBILE REPOSSESSOR 35 mL 35 mL/hr sodium chloride 0.9 % injection 10 mL 10 mL, intravenous, As needed, line care, Peripheral Intravenous Catheter and Rapid Infusion Catheter, Starting on Thu03/13/23 at 1415, Prior to blood sampling, post blood transfusion or post blood sampling. Given 03/13/2023 2:45 PM AUTOMOBILE REPOSSESSOR 10 mL Given 03/13/2023 2:44 PM AUTOMOBILE REPOSSESSOR 10 mL documented in this encounter
--- OUTSIDE RECORDS SUMMARY | 2023-05-07 11:02 | XMS_ITS | Encounter Summary ---
Author Name Unknown Organization [facility] Address [address] [place] [address] Care Team Providers Care Barrel Charrer Name Role Phone Unavailable Primary Care Provider Unavailabl e Reason for Referral * Outpatient (Routine) - Authorized Specialty Diagnoses / Procedures Referred By Contac t Referred To Contact Nutrition Diagnoses Malignant Neoplasm Of Oropharynx (HCC) Ashlee Go APRN, C.N.P., D.N.P. [address] [place] [phone] [facility] Region Referral ID Status Reason Start Date Expiration Date V isits Requested Visits Authorized [id number] Authorized 03/12/2023 03/11/2024 5 5 OGRAPHIC PROCESS ATTENDANT * Outpatient (Routine) - Authorized Specialty Diagnoses / Procedures Referred By Contac t Referred To Contact Diagnoses Malignant Neoplasm Of Oropharynx (HCC) Ashlee Go APRN, C.N.P., D.N.P. [address] [place] [phone] [facility] Region Referral ID Status Reason Start Date Expiration Date V isits Requested Visits Authorized [id number] Authorized 03/12/2023 03/11/2024 1 1 OGRAPHIC PROCESS ATTENDANT Encounter Details Date Type Department Care Team (Late st Contact Info) Description 03/12/2023 Orders Only Department of Radiation Oncology in [place], [place] [address] [place] [phone] Ashlee Go APRN, C.N.P., D.N.P. [address] [place] [address] Malignant Neoplasm Of Oropharynx (HCC) (Primary Dx) [...] Sex Assigned at Male 03/01/2023 1:25 PM PHOTOGRAPHIC PROCESS ATTENDANT Gender Identity Male 03/01/2023 1:25 PM PHOTOGRAPHIC PROCESS ATTENDANT Sexual Orientation Not on file documented as of this encounter Miscellaneous Notes * Addendum Note - Ashlee Go APRN, C.N.P., D.N.P. - 03/12/2023 10:28 AM CSTAddended by: ASHLEE GO on: 03/12/2023 10:33 AM Modules accepted: Orders OGRAPHIC PROCESS ATTENDANT documented in this encounter Plan of Treatment Upcoming Encounters Date Type Department Care Team (Late st Contact Info) Description 05/08/2023 8:00 AM PHOTOGRAPHIC PROCESS ATTENDANT Appointment Department of Radiation Oncology in [place], [place] [address] [place] [phone] Lauren Hernandez M.D. 200 [place] [address] 05/11/2023 8:15 AM PHOTOGRAPHIC PROCESS ATTENDANT Appointment Department of Radiation Oncology in [place], [place] [address] [place] [address] Lauren Hernandez M.D. [address] [place] [address] Scheduled Referrals Name Type Priority Associated Diagnoses [...]
--- OUTSIDE RECORDS SUMMARY | 2023-05-07 11:02 | XMS_ITS | Encounter Summary ---
Author Name Unknown Organization [facility] Address [address] [place] [phone] Care Team Providers Care Care Transitions Manager Name Role Phone Unavailable Primary Care Provider Unavailabl e Encounter Details Date Type Department Care Team (Late st Contact Info) Description 03/13/2023 Clinical Communication Department of Dental Specialties in [place], [place] [address] [place] [phone] Joe Moseley B.D.S. [address] [place] [address] Social History Tobacco Use Types Packs/Day Years [...] Sex Assigned at Male 03/01/2023 1:25 PM CURATORIAL SPECIALIST Gender Identity Male 03/01/2023 1:25 PM CURATORIAL SPECIALIST Sexual Orientation Not on file documented as of this encounter Plan of Treatment Upcoming Encounters Date Type Department Care Team (Late st Contact Info) Description 05/08/2023 8:00 AM CURATORIAL SPECIALIST Appointment Department of Radiation Oncology in [place], [place] [address] [place] [address] Lauren Hernandez M.D. [address] [place] [address] 05/11/2023 8:15 AM CURATORIAL SPECIALIST Appointment Department of Radiation Oncology in [place], [place] [address] [place] [address] Lauren Hernandez M.D. [address] [place] [address] documented as of this encounter Visit Diagnoses Not on filedocumented in this encounter
--- OUTSIDE RECORDS SUMMARY | 2023-05-07 11:02 | XMS_ITS | Encounter Summary ---
Author Name Unknown Organization [facility] Address [address] [place] [address] Care Team Providers Care President Financial Institution Name Role Phone Unavailable Primary Care Provider Unavailabl e Reason for Referral * Outpatient (Routine) - Authorized Specialty Diagnoses / Procedures Referred By Contac t Referred To Contact Nutrition Diagnoses Malignant Neoplasm Of Oropharynx (HCC) Ashlee Go APRN, C.N.P., D.N.P. [address] [place] [phone] [facility] Region Referral ID Status Reason Start Date Expiration Date V isits Requested Visits Authorized [id number] Authorized 03/12/2023 03/11/2024 5 5 T TRIMMER Reason for Visit * Outpatient (Routine) - Authorized Specialty Diagnoses / Procedures Referred By Contac t Referred To Contact Nutrition Diagnoses Malignant Neoplasm Of Oropharynx (HCC) Ashlee Go APRN, C.N.P., D.N.P. [address] [place] [phone] [facility] Region Referral ID Status Reason Start Date Expiration Date V isits Requested Visits Authorized [id number] Authorized 03/12/2023 03/11/2024 5 5 Encounter Details Date Type Department Care Team ([facility] st Contact Info) Description 03/26/2023 8:26 AM SKIRT TRIMMER - 03/26/2023 11:59 PM SKIRT TRIMMER Hospital Encounter Department of Radiation Oncology in [place], [place] [address] [place] [phone] Ashlee Go, TABLE ASSEMBLER, C.N.P., D.N.P. [address] [place] [address] Yolis Eric RDN [address] [place] [address] Malignant Neoplasm Of Oropharynx (HCC) Discharge Disposition: [...] Sex Assigned at Male 03/01/2023 1:25 PM SKIRT TRIMMER Gender Identity Male 03/01/2023 1:25 PM SKIRT TRIMMER Sexual Orientation Not on file documented as of this encounter Last Filed Vital Signs Vital Sign Reading Time Taken Comments Blood Pressure - - Pulse - - Temperature - - Respiratory Rate - - Oxygen Saturation - - Inhaled Oxygen Concentration - - Weight 124 kg (274 lb 7.6 oz) 03/26/2023 9:05 AM SKIRT TRIMMER Height 170 cm (5' 6.93) 03/26/2023 9:06 AM SKIRT TRIMMER Body Mass Index 43.08 03/26/2023 9:05 AM SKIRT TRIMMER documented in this encounter Medications at Time [...] He will also be receiving chemotherapy at [facility]. PAST MEDICAL HISTORY The medical history was reviewed today from the electronic medical record. Please see the electronic medical record for complete details of the PAST MEDICAL HISTORY. Met with patient and spouse. ASSESSMENT Relevant Social and Family History Mr. Roland lives with his spouse, Eva in [place]. Nutrition Focused Physical Findings Mouth/esophagus/Throat: Mild sore [...] (Adj. Wt.) Date: 03/13/23 Total Calorie Needs: 1439-0337 (HB basal to basal + 20%) Estimated [...] withquestions. Time spent with patient (minutes): 30 T TRIMMER documented in this encounter Plan of Treatment Upcoming Encounters Date Type Department Care Team (Late st Contact Info) Description 05/08/2023 8:00 AM SKIRT TRIMMER Appointment Department of Radiation Oncology in [address] [phone] Lauren Hernandez M.D. [address] [place] [phone] 05/11/2023 8:15 AM SKIRT TRIMMER Appointment Department of Radiation Oncology in [address] [phone] Lauren Hernandez M.D. [address] [place] [phone] Scheduled Referrals Name Type Priority Associated Diagnoses Order Schedule Nutrition - Medical nutrition therapy consult (clinic) Outpatient Referral Routine Malignant Neoplasm Of Oropharynx (HCC) Once for 1 Occurrences starting 03/26/2023 until 03/26/2023 documented as of this encounter Visit Diagnoses Diagnosis Malignant Neoplasm Of Oropharynx (HCC) documented in this encounter
--- OUTSIDE RECORDS SUMMARY | 2023-05-07 11:02 | XMS_ITS | Encounter Summary ---
Author Name Unknown Organization [facility] Address [address] [place] [address] Care Team Providers Care Pocket And Pulley Machine Operator Name Role Phone Unavailable Primary Care Provider Unavailabl e Reason for Visit * Radiation Therapy (Routine) - Authorized Specialty Diagnoses / Procedures Referred By Contac t Referred To Contact Diagnoses Malignant Neoplasm Of Oropharynx (HCC) Procedures Prior Auth Rad Tx [place] IMRT COMPLEX IMRT Lauren Hernandez M.D. [address] [place] [address] [facility] Radiation Oncology at [address] [address] Referral ID Status Reason Start Date Expiration Date V isits Requested Visits Authorized [id number] Authorized 03/23/2023 03/11/2024 35 35 Encounter Details Date Type Department Care Team (Latest Contact Info) Description 03/25/2023 9:26 AM BURLING AND JOINING SUPERVISOR - 03/25/2023 11:59 PM [facility] Hospital Encounter Department of Radiation Oncology in [address] [phone] Lauren Hernandez M.D. [address] [place] [phone] Discharge Disposition: Home or Self Care Social [...] Sex Assigned at Male 03/01/2023 1:25 PM BURLING AND JOINING SUPERVISOR Gender Identity Male 03/01/2023 1:25 PM BURLING AND JOINING SUPERVISOR Sexual Orientation Not on file documented [...] st Contact Info) Description 05/08/2023 8:00 AM BURLING AND JOINING SUPERVISOR Appointment Department of Radiation Oncology in [place], [place] [address] [place] [address] Lauren Hernandez M.D. [address] [place] [phone] 05/11/2023 8:15 AM BURLING AND JOINING SUPERVISOR Appointment Department of Radiation Oncology in [place], [place] [address] [place] [address] Lauren Hernandez M.D. [address] [place] [address] documented as of this encounter Visit Diagnoses Not on filedocumented in this encounter
--- OUTSIDE RECORDS SUMMARY | 2023-05-07 11:02 | XMS_ITS | Encounter Summary ---
Author Name Unknown Organization [facility] Address [address] [place] [address] Care Team Providers Care Solution Specialist Name Role Phone Unavailable Primary Care Provider Unavailabl e Reason for Referral * Radiation Therapy (Routine) - Closed Specialty Diagnoses / Procedures Referred By Diamond montemayor Referred To Contact Diagnoses Malignant Neoplasm Of Oropharynx (HCC) Procedures Initial Rad Onc Treatment Planning CT Simulation Lauren Hernandez M.D. [address] [place] [address] [facility] Region Referral ID Status Reason Start Date Expiration Date Visits Re quested Visits Authorized [id number] Closed 03/12/2023 03/11/2024 1 1 PLEATER Reason for Visit * Radiation Therapy (Routine) - Closed Specialty Diagnoses / Procedures Referred By Diamond montemayor Referred To Contact Diagnoses Malignant Neoplasm Of Oropharynx (HCC) Procedures Initial Rad Onc Treatment Planning CT Simulation Lauren Hernandez M.D. [address] [place] [address] [facility] Region Referral ID Status Reason Start Date Expiration Date Visits Re quested Visits Authorized [id number] Closed 03/12/2023 03/11/2024 1 1 Encounter Details Date Type Department Care Team (Latest Contact Info) Description 03/13/2023 2:07 PM KIER PLEATER - 03/14/2023 6:30 AM KIER PLEATER Hospital Encounter Department of Radiation Oncology in [place], [place] [address] [place] [phone] Lauren Hernandez M.D. [address] [place] [address] Malignant Neoplasm Of Oropharynx (HCC) Social History [...] Sex Assigned at Male 03/01/2023 1:25 PM KIER PLEATER Gender Identity Male 03/01/2023 1:25 PM KIER PLEATER Sexual Orientation Not on file documented as [...] imaging was appropriate and completed without incident. Quality Control Manager use:No PLEATER Associated attestation - Lauren Hernandez M.D. - 03/14/2023 6:30 AM KIER PLEATER I was present during all critical and zhang portions of the procedure(s) and immediately available tofurnish services the entire duration. See note for details. documented in this encounter Plan of Treatment Upcoming Encounters Date Type Department Care Team (Late st Contact Info) Description 05/08/2023 8:00 AM KIER PLEATER Appointment Department of Radiation Oncology in [place], [place] [address] [place] [address] Lauren Hernandez M.D. [address] [place] [address] 05/11/2023 8:15 AM KIER PLEATER Appointment Department of Radiation Oncology in [place], [place] [address] [place] [address] Lauren Hernandez M.D. [address] [place] [address] documented as of this encounter Procedures Procedure Name Priority Date/Time Associated Diagnosis Comments INITIAL RAD ONC TREATMENT PLANNING CT SIMULATION Routine 03/13/2023 2:15 PM KIER PLEATER Malignant Neoplasm Of Oropharynx (HCC) documented in this encounter Results * Initial Rad Onc Treatment Planning CT Simulation (03/13/2023 2:15 PM KIER PLEATER) Narrative RENE LUQUE - 03/13/2023 2:15 PM KIER PLEATER Gregoria Vega R, RTT ? 03/13/2023 ??2:39 PM Initial Rad Onc Treatment Planning CT Simulation Performed by: Lauren Hernandez M.D. Authorized by: Lauren Hernandez M.D. ?? Lauren Hernandez M.D. RADIATION ONCOLOG Y ORDERABLES RENE LUQUE na documented in this encounter Visit Diagnoses Diagnosis Malignant Neoplasm Of Oropharynx (HCC) documented in this encounter
--- OUTSIDE RECORDS SUMMARY | 2023-05-07 11:02 | XMS_ITS | Encounter Summary ---
Author Name Unknown Organization [facility] Address [address] [place] [address] Care Team Providers Care Cutting Machine Tender Helper Name Role Phone Unavailable Primary Care Provider Unavailabl e Reason for Visit * Radiation Therapy (Routine) - Authorized Specialty Diagnoses / Procedures Referred By Contac t Referred To Contact Diagnoses Malignant Neoplasm Of Oropharynx (HCC) Procedures Prior Auth Rad Tx GA IMRT COMPLEX IMRT Lauren Hernandez M.D. [address] [place] [address] [facility] Radiation Oncology at [place] [address] [place] [phone] Referral ID Status Reason Start Date Expiration Date V isits Requested Visits Authorized [id number] Authorized 03/23/2023 03/11/2024 35 35 Encounter Details Date Type Department Care Team (Latest Contact Info) Description 03/26/2023 8:24 AM [facility] Hospital Encounter Department of Radiation Oncology in [place], [place] [address] [place] [phone] Lauren Hernandez M.D. [address] [place] [phone] Discharge Disposition: Home or Self Care Social [...] Sex Assigned at Male 03/01/2023 1:25 PM REPAIR COIL WINDER Gender Identity Male 03/01/2023 1:25 PM REPAIR COIL WINDER Sexual Orientation Not on file documented as [...] st Contact Info) Description 05/08/2023 8:00 AM REPAIR COIL WINDER Appointment Department of Radiation Oncology in [place], [place] [address] [place] [address] Lauren Hernandez M.D. [address] [place] [address] 05/11/2023 8:15 AM REPAIR COIL WINDER Appointment Department of Radiation Oncology in [place], [place] [address] [place] [address] Lauren Hernandez M.D. [address] [place] [address] documented as of this encounter Visit Diagnoses Not on filedocumented in this encounter
--- OUTSIDE RECORDS SUMMARY | 2023-05-07 11:03 | XMS_ITS | Encounter Summary ---
Author Name Unknown Organization [facility] Address [address] [place] [address] Care Team Providers Care Pipe Finisher Name Role Phone Unavailable Primary Care Provider Unavailabl e Reason for Referral * MRI/CAT/PET Scan (Routine) - Closed Specialty Diagnoses / Procedures Referred By Diamond montemayor Referred To Contact Diagnoses Mass Neck Mass Tonsil Procedures PET CT Skull to Thigh FDG David Soto M.D. [address] [place] [phone] [facility] Referral ID Status Reason Start Date Expiration Date Visits Re quested Visits Authorized [id number] Closed 02/18/2023 02/18/2024 1 1 BALANCER Reason for Visit * MRI/CAT/PET Scan (Routine) - Closed Specialty Diagnoses / Procedures Referred By Diamond montemayor Referred To Contact Diagnoses Mass Neck Mass Tonsil Procedures PET CT Skull to Thigh FDG David Soto M.D. [address] [place] [phone] [facility] Referral ID Status Reason Start Date Expiration Date Visits Re quested Visits Authorized [id number] Closed 02/18/2023 02/18/2024 1 1 Encounter Details Date Type Department Care Team (Latest Contact Info) Description 03/02/2023 5:54 AM FAN BALANCER - 03/02/2023 11:59 PM FAN BALANCER Hospital Encounter Department of Radiology, [facility], in [place], [place] [address] [place] [address] David Soto M.D. [address] [place] [address] Mass Neck; Mass Tonsil Discharge Disposition: Home [...] your living situation today? [facility] 03/01/2023 Sex and Gender Information Value Date Recorded Sex Assigned at Male 03/01/2023 1:25 PM FAN BALANCER Gender Identity Male 03/01/2023 1:25 PM FAN BALANCER Sexual Orientation Not on file documented as [...] st Contact Info) Description 05/08/2023 8:00 AM FAN BALANCER Appointment Department of Radiation Oncology in [place], [place] [address] [place] [address] Lauren Hernandez M.D. [address] [place] [address] 05/11/2023 8:15 AM FAN BALANCER Appointment Department of Radiation Oncology in [place], [place] [address] [place] [address] Lauren Hernandez M.D. [address] [place] [address] documented as of this encounter Procedures Procedure Name Priority Date/Time Associated Diagnosis Comments PET CT SKULL TO THIGH RAD - Routine (most inpatients and all outpatients) 03/02/2023 8:00 AM FAN BALANCER Mass Neck Mass Tonsil documented in this encounter Results * PET CT Skull to Thigh FDG (03/02/2023 8:00 AM FAN BALANCER) Anatomical Region Laterality Modality Body, Nuclear Medicine PET R ST LOS, PET ARZ LOS, Nuclear Medicine PET FLA LOS, Nuclear Medicine N/A Positron Emission Tomography (PET), Positron Emission Tomography (PET) 03/02/2023 8:32 AM FAN BALANCER Impressions 03/02/2023 9:56 AM FAN BALANCER 1. 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 2. ??Possible FDG avid colon polyp. Recommend colonoscopy correlation, if clinically indicated. Narrative 03/02/2023 9:56 AM FAN BALANCER EXAM: ??PET CT SKULL TO THIGH FDG Serum glucose at time of F-18 FDG injection was 109 mg/dL. Patient followed standard dietary/fasting requirements for this exam. RADIOPHARMACEUTICAL/MEDS: Route: intravenous fludeoxyglucose F 18 injection [facility]SING HOME (FDG F-18),9.96 millicurie TECHNIQUE: ??F-18 FDG PET/CT [...] RADIOPHARMACEUTICAL/MEDS: Route: intravenous fludeoxyglucose F 18 injection [facility] HOME (FDG F-18),9.96 millicurie TECHNIQUE: F-18 FDG PET/CT [...] polyp. Recommend colonoscopy correlation, ifclinically indicated. David SCOTT PROCEDURES documented in this encounter Visit Diagnoses Diagnosis Mass Neck Mass Tonsil documented in this encounter Administered Medications Inactive Administered Medications - up to 3 most recent administrations Medication Order MAR Action Action Date Dose Rate Site fludeoxyglucose F 18 injection NURSING HOME (FDG F-18) 4.5-16.5 millicurie, intravenous, Once, On 03/02/23 at 0645, For 1 dose, Imaging Protocol Orders Given 03/02/2023 6:13 AM FAN BALANCER 9.96 millicuries documented in this encounter
--- OUTSIDE RECORDS SUMMARY | 2023-05-07 11:03 | XMS_ITS | Encounter Summary ---
Author Name Unknown Organization [facility] Address [address] [place] [address] Care Team Providers Care College Dean Name Role Phone Unavailable Primary Care Provider Unavailabl e Reason for Visit * Outpatient (Routine) - Closed Specialty Diagnoses / Procedures Referred By Diamond montemayor Referred To Contact Diagnoses Mass Neck Mass Tonsil Procedures US Thyroid US Head Neck Soft Tissue David Soto M.D. [address] [place] [phone] [facility] Referral ID Status Reason Start Date Expiration Date Visits Re quested Visits Authorized [id number] Closed 02/18/2023 02/18/2024 1 1 Encounter Details Date Type Department Care Team (Latest Contact Info) Description 02/26/2023 10:06 AM CDT - 02/26/2023 11:59 PM CDT Hospital Encounter Department of Radiology, [facility], in [place], [place] [address] [place] [address] David Soto M.D. [address] [place] [phone] Mass Neck; Mass Tonsil Discharge Disposition: Home [...] Sex Assigned at Male 03/01/2023 1:25 PM DISPLAY CARVER Gender Identity Male 03/01/2023 1:25 PM DISPLAY CARVER Sexual Orientation Not on file documented as [...] st Contact Info) Description 05/08/2023 8:00 AM DISPLAY CARVER Appointment Department of Radiation Oncology in [place], [place] [address] [place] [address] Lauren Hernandez M.D. [address] [place] [address] 05/11/2023 8:15 AM DISPLAY CARVER Appointment Department of Radiation Oncology in [place], [place] [address] [place] [address] Lauren Hernandez M.D. [address] [place] [address] documented as of this encounter Procedures Procedure [...] cm and is amenable to biopsy. David RAUSCH US PROCEDURES documented in this encounter Visit Diagnoses Diagnosis Mass Neck Mass Tonsil documented in this encounter
--- OUTSIDE RECORDS SUMMARY | 2023-05-07 11:03 | XMS_ITS | Encounter Summary ---
Author Name Unknown Organization [facility] Address [address] [place] [address] Care Team Providers Care Radiation Safety Officer Name Role Phone Unavailable Primary Care Provider Unavailabl e Reason for Referral * Outpatient (Routine) - Closed Specialty Diagnoses / Procedures Referred By Diamond montemayor Referred To Contact Otorhinolaryngology David Soto M.D. [address] [place] [phone] [facility] Referral ID Status Reason Start Date Expiration Date Visits Re quested Visits Authorized [id number] Closed 03/05/2023 03/04/2026 1 1 ETRICS TECHNICIAN * Outpatient (Routine) - Closed Specialty Diagnoses / Procedures Referred By Conttin t Referred To Contact Dentistry / Dental Specialties Diagnoses Other Diseases Of Pharynx Localized Enlarged Lymph Nodes David Soto M.D. [address] [place] [address] [facility] Referral ID Status Reason Start Date Expiration Date Visits Re quested Visits Authorized [id number] Closed 03/05/2023 03/04/2024 1 1 ETRICS TECHNICIAN * Speech Pathology (Routine) - Closed Specialty Diagnoses / Procedures Referred By Conttin t Referred To Contact Diagnoses Other Diseases Of Pharynx Localized Enlarged Lymph Nodes Procedures PEANUT SALTER - Ongoing treatment David Soto M.D. [address] [place] [address] [place] [phone] [facility] Referral ID Status Reason Start Date Expiration Date Visits Re quested Visits Authorized [id number] Closed 03/05/2023 03/04/2024 1 1 ETRICS TECHNICIAN * Outpatient (Routine) - Closed Specialty Diagnoses / Procedures Referred By Diamond montemayor Referred To Contact Diagnoses Other Diseases Of Pharynx Localized Enlarged Lymph Nodes Procedures FL Swallow Function with Video and Speech or OT David Soto M.D. [address] [place] [address] [facility] Referral ID Status Reason Start Date Expiration Date Visits Re quested Visits Authorized [id number] Closed 03/05/2023 03/04/2024 1 1 ETRICS TECHNICIAN * Speech Pathology (Routine) - Closed Specialty Diagnoses / Procedures Referred By Diamond t Referred To Contact Diagnoses Other Diseases Of Pharynx Localized Enlarged Lymph Nodes Procedures PEANUT SALTER Dysphagia evaluate and treat David Soto M.D. [address] [place] [address] [facility] Referral ID Status Reason Start Date Expiration Date Visits Re quested Visits Authorized [id number] Closed 03/05/2023 03/04/2024 1 1 ETRICS TECHNICIAN Reason for Visit * Outpatient (Routine) - Closed Specialty Diagnoses / Procedures Referred By Diamond montemayor Referred To Contact Otorhinolaryngology Diagnoses Other Diseases Of Pharynx Localized Enlarged Lymph Nodes Toi Yap M.D. [address], [place] [address] [facility] Referral ID Status Reason Start Date Expiration Date Visits Re quested Visits Authorized [id number] Closed 02/17/2023 02/17/2024 1 1 Encounter Details Date Type Department Care Team (Latest Contact Info) Description 03/05/2023 9:45 AM BIOMETRICS TECHNICIAN Comprehensive Visit Department of Otorhinolaryngology in [place], [place] [address] [place] [address] David Soto M.D. [address] [place] [address] Malignant Neoplasm Of Oropharynx (HCC); Secondary Malignant [...] Sex Assigned at Male 03/01/2023 1:25 PM BIOMETRICS TECHNICIAN Gender Identity Male 03/01/2023 1:25 PM BIOMETRICS TECHNICIAN Sexual Orientation Not on file documented as of this encounter Consult Notes * David Soto M.D. - 03/05/2023 9:45 AM CST Images from the original note were not included. Clinic Note Date of visit: 03/05/2023 Patient name: Tad Roland : 1955 Referring Provider: Toi Yap M.D. 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 [address] [place] [address] 05/11/2023 8:15 AM BIOMETRICS TECHNICIAN Appointment Department of Radiation Oncology in [place], [place] [address] [place] [phone] Lauren Hernandez M.D. [address] [place] [address] Scheduled Referrals Name Type Priority Associated Diagnoses [...] and Speech or OT (03/09/2023 10:50 AM BIOMETRICS TECHNICIAN) Anatomical Region Laterality Modality Gastro Intestinal, Abdominal RST LOS, Abdominal ARZ LOS, Abdominal FLA LOS N/A Digital Radiography 03/09/2023 10:4 6 AM BIOMETRICS TECHNICIAN Impressions 03/09/2023 10:53 AM BIOMETRICS TECHNICIAN 1. Negative video swallowing study. Narrative 03/09/2023 10:53 AM BIOMETRICS TECHNICIAN EXAM: FL SWALLOW FUNCTION WITH VIDEO AND [...] swallowing study. David Soto M.D. 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
--- OUTSIDE RECORDS SUMMARY | 2023-05-07 11:03 | XMS_ITS | Encounter Summary ---
Author Name Unknown Organization [facility] Address [address] [place] [address] Care Team Providers Care Wire Cutter Name Role Phone Unavailable Primary Care Provider Unavailabl e Reason for Visit * Reason Onset Date Comments Previsit Preparation 02/27/2023 Encounter Details Date Type Department Care Team (Latest Contact Info) Description 02/27/2023 10:00 AM CDT Clinical Communication Virtual Review in [place], [place] [address] [place] [address] Previsit Preparation Social History Tobacco Use Types [...] Sex Assigned at Male 03/01/2023 1:25 PM PLEXIGLAS FORMER Gender Identity Male 03/01/2023 1:25 PM PLEXIGLAS FORMER Sexual Orientation Not on file documented as of this encounter Plan of Treatment Upcoming Encounters Date Type Department Care Team (Late st Contact Info) Description 05/08/2023 8:00 AM PLEXIGLAS FORMER Appointment Department of Radiation Oncology in [place], [place] [address] [place] [address] Lauren Hernandez M.D. [address] [place] [phone] 05/11/2023 8:15 AM PLEXIGLAS FORMER Appointment Department of Radiation Oncology in [place], [place] [address] [place] [address] Lauren Hernandez M.D. [address] [place] [address] documented as of this encounter Visit Diagnoses Not on filedocumented in this encounter
--- OUTSIDE RECORDS SUMMARY | 2023-05-07 11:03 | XMS_ITS | Encounter Summary ---
Author Name Unknown Organization [facility] Address [address] [place] [address] Care Team Providers Care Manager Acute Name Role Phone Unavailable Primary Care Provider Unavailabl e Encounter Details Date Type Department Care Team (Late st Contact Info) Description 03/09/2023 Orders Only Department of Radiation Oncology in [place], [place] [address] [place] [phone] Brandon Yeboah [address] [place] [phone] Mass Tonsil (Primary Dx) Social History Tobacco [...] Assigned at Male 03/01/2023 1:25 PM SENIOR LINUX SYSTEMS ADMINISTRATOR Gender Identity Male 03/01/2023 1:25 PM SENIOR LINUX SYSTEMS ADMINISTRATOR Sexual Orientation Not on file documented as of this encounter Plan of Treatment Upcoming Encounters Date Type Department Care Team (Late st Contact Info) Description 05/08/2023 8:00 AM SENIOR LINUX SYSTEMS ADMINISTRATOR Appointment Department of Radiation Oncology in [place], [place] [address] [place] [address] Lauren Hernandez M.D. [address] [place] [address] 05/11/2023 8:15 AM SENIOR LINUX SYSTEMS ADMINISTRATOR Appointment Department of Radiation Oncology in [place], [place] [address] [place] [address] Lauren Hernandez M.D. [address] [place] [address] documented as of this encounter Visit Diagnoses Diagnosis Mass Tonsil- Primary documented in this encounter
--- OUTSIDE RECORDS SUMMARY | 2023-05-07 11:03 | XMS_ITS | Encounter Summary ---
Author Name Unknown Organization [facility] Address [address] [place] [address] Care Team Providers Care Optical Engineering Manager Name Role Phone Unavailable Primary Care Provider Unavailabl e Reason for Referral * Outpatient (Routine) - Closed Specialty Diagnoses / Procedures Referred By Diamond montemayor Referred To Contact Diagnoses Mass Neck Mass Tonsil Procedures US Lymph Node Biopsy David Soto M.D. [address] [place] [address] [facility] Referral ID Status Reason Start Date Expiration Date Visits Re quested Visits Authorized [id number] Closed 02/18/2023 02/18/2024 1 1 R ORAL SURGEON Reason for Visit * Auth/Cert (Routine) Specialty Diagnoses / Procedures Referred By Diamond montemayor Referred To Contact Diagnoses Mass Neck Mass Tonsil Procedures US LYMPH NODE BIOPSY Referral ID Status Reason Start Date Expiration Date Visits Re quested Visits Authorized [id number] 1 1 Encounter Details Date Type Department Care Team (Latest Contact Info) Description 03/05/2023 8:10 AM OWNER ORAL SURGEON - 03/06/2023 11:34 AM OWNER ORAL SURGEON Hospital Encounter Department of Radiology, [facility], in [place], [place] [address] [place] [address] David Soto M.D. [address] [place] [phone] Mass Neck; Mass Tonsil Discharge Disposition: Home [...] Sex Assigned at Male 03/01/2023 1:25 PM OWNER ORAL SURGEON Gender Identity Male 03/01/2023 1:25 PM OWNER ORAL SURGEON Sexual Orientation Not on file documented as of this encounter Discharge Instructions * Attachments The following attachments cannot be sent through Care Everywhere. * Care Following Your Lymph Node Biopsy (Slovak) documented in this encounter Medications at Time [...] st Contact Info) Description 05/08/2023 8:00 AM OWNER ORAL SURGEON Appointment Department of Radiation Oncology in [address] [phone] Lauren Hernandez M.D. [address] [place] [address] 05/11/2023 8:15 AM OWNER ORAL SURGEON Appointment Department of Radiation Oncology in [place], [place] [address] [place] [address] Lauren Hernandez M.D. [address] [place] [address] documented as of this encounter Procedures Procedure Name Priority Date/Time Associated Diagnosis Comments US LYMPH NODE BIOPSY RAD - Routine (most inpatients and all outpatients) 03/05/2023 8:46 AM OWNER ORAL SURGEON Mass Neck Mass Tonsil CYTOLOGY FINE NEEDLE ASPIRATION (INCLUDES CORE BIOPSIES Timed 03/05/2023 8:26 AM OWNER ORAL SURGEON documented in this encounter Results * US Lymph Node Biopsy (03/05/2023 8:46 AM OWNER ORAL SURGEON) Anatomical Region Laterality Modality Body, Ultrasound RST LOS, Ul trasound ARZ LOS, Procedure FLA LOS, Abdominal FLA LOS, Procedural N/A Ultrasound 03/05/2023 9:13 AM OWNER ORAL SURGEON Impressions 03/05/2023 9:17 AM OWNER ORAL SURGEON Ultrasound-guided biopsy of an enlarged left neck lymph node. EP Narrative 03/05/2023 9:17 AM OWNER ORAL SURGEON EXAM: US LYMPH NODE BIOPSY PRE-PROCEDURE: Patient [...] Aspiration (including core biopsies) (03/05/2023 8:26 AM OWNER ORAL SURGEON) (A) 3:41 PM OWNER ORAL SURGEON DTL Disclaimer Test results for (IHC or RODRÍGUEZ) testing are valid for specimens fixed between 6 and 72 hours. ??Delay to fixation, under fixation or over fixation fall outside of guidelines and may affect these results. (A) 03/06/2023 3:41 PM OWNER ORAL SURGEON DTL Report electronically signed by Deann Cabral M.D. I verify that I have examined all relevant slides/materials for the specimen(s) and rendered or confirmed the diagnosis. (A) 03/06/2023 3:41 PM OWNER ORAL SURGEON DTL Gross Description Received 6 alcohol-fixed smears [...] ??Grossed by AJB. (A) 03/06/2023 3:41 PM OWNER ORAL SURGEON DTL Source A. 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 This indicates positivity for one or more of the following types: 16, 18, 26, 31, 33, 35, 39, 45, 51, 52, 53, 56, 58, 59, 66, 68, 73, and 82. Signed by Deann Cabral M.D. 03/09/2023 6:24 PM This test was developed and its performance characteristics determined by [facility] in a manner consistent with CLIA requirements. This test has not been cleared or approved by the U.S. Food and Drug Administration. (A) 03/09/2023 6:24 PM OWNER ORAL SURGEON DTL Comment:REVISED RESULTS Interpretation A. Lymph node, [...] in an addendum. (A) 03/09/2023 6:24 PM OWNER ORAL SURGEON DTL Tissue (Lymph Node) 03/05/2023 8:26 AM OWNER ORAL SURGEON 03/05/2023 9:12 AM OWNER ORAL SURGEON David Soto M.D. LAB SURG PATH JUAN CARLOS [facility] [employer] [facility] [address] [place] [address], [facility] DTL [address] [place] [address] documented in this encounter Visit Diagnoses Diagnosis Mass Neck Mass Tonsil documented in this encounter Administered Medications Inactive Administered Medications - up to 3 most recent administrations Medication Order MAR Action Action Date Dose Rate Site lidocaine 10 mg/mL (1 %) injection (XYLOCAINE) As needed, Starting on Kya 03/05/23 at 0840, Intra-Op Given 03/05/2023 8:40 AM OWNER ORAL SURGEON 4 mL Left Neck documented in this encounter Active and Recently Administered Medications Times are shown in OWNER ORAL SURGEON. PRN Medication Order 03/04/2023 03/05/2023 03/06/2023 lidocaine 10 mg/mL (1 %) injection (XYLOCAINE) (COMPLETED) As needed, Starting on Kya 03/05/23 at 0840, Intra-Op 0840 (Given - Provider: Elizabeth Rosa M.D.) documented in this encounter
--- OUTSIDE RECORDS SUMMARY | 2023-05-07 11:03 | XMS_ITS | Encounter Summary ---
Author Name Unknown Organization [facility] Address [address] [place] [address] Care Team Providers Care Shell Plater Name Role Phone Unavailable Primary Care Provider Unavailabl e Reason for Referral * Outpatient (Routine) - Authorized Specialty Diagnoses / Procedures Referred By Diamond t Referred To Contact Medical Oncology Diagnoses Malignant Neoplasm Of Oropharynx (HCC) Fracisco Barron P.A.-C. [address] [place] [address] [facility] [address] [place] [address] Phone: [phone] Referral ID Status Reason Start Date Expiration Date Visits Requested Visits Authorized [id number] Authorized Patient Preference 3 03/11/2024 1 1 ESS LABORATORY SPECIALIST Encounter Details Date Type Department Care Team (Late st Contact Info) Description 03/12/2023 Orders Only Department of Oncology in [place], [place] [address] [place] [phone] Ana Quinonez, RFcoNFco Malignant Neoplasm Of Oropharynx [...] your living situation today? I have a [facility] place to live 03/01/2023 Sex and Gender Information Value Date Recorded Sex Assigned at Male 03/01/2023 1:25 PM PROCESS LABORATORY SPECIALIST Gender Identity Male 03/01/2023 1:25 PM PROCESS LABORATORY SPECIALIST Sexual Orientation Not on file documented as of this encounter Plan of Treatment Upcoming Encounters Date Type Department Care Team (Late st Contact Info) Description 05/08/2023 8:00 AM PROCESS LABORATORY SPECIALIST Appointment Department of Radiation Oncology in [place], [place] [address] [place] [address] Lauren Hernandez M.D. [address] [place] [address] 05/11/2023 8:15 AM PROCESS LABORATORY SPECIALIST Appointment Department of Radiation Oncology in [place], [place] [address] [place] [address] Lauren Hernandez M.D. [address] [place] [address] documented as of this encounter Visit Diagnoses Diagnosis Malignant Neoplasm Of Oropharynx (HCC)- Primary documented in this encounter
--- OUTSIDE RECORDS SUMMARY | 2023-05-07 11:03 | XMS_ITS | Encounter Summary ---
Author Name Unknown Organization [facility] Address [address] [place] [address] Care Team Providers Care Drainage Engineer Name Role Phone Unavailable Primary Care Provider Unavailabl e Encounter Details Date Type Department Care Team (Latest Contact Info) Description 03/05/2023 10:55 AM CAR RENTAL SALES ASSISTANT Ancillary Procedure Department of Otorhinolaryngology Social History [...] living situation today? I have a [facility] place to live 03/01/2023 Sex and Gender Information Value Date Recorded Sex Assigned at Male 03/01/2023 1:25 PM CAR RENTAL SALES ASSISTANT Gender Identity Male 03/01/2023 1:25 PM CAR RENTAL SALES ASSISTANT Sexual Orientation Not on file documented as of this encounter Plan of Treatment Upcoming Encounters Date Type Department Care Team (Late st Contact Info) Description 05/08/2023 8:00 AM CAR RENTAL SALES ASSISTANT Appointment Department of Radiation Oncology in [address] [address] Lauren Hernandez M.D. [address] [place] [address] 05/11/2023 8:15 AM CAR RENTAL SALES ASSISTANT Appointment Department of Radiation Oncology in [address] [phone] Lauren Hernandez M.D. [address] [place] [phone] documented as of this encounter Procedures Procedure Name Priority Date/Time Associated Diagnosis Comments OTORHINOLARYNGOLOGY IMAGE EXAM Routine 03/05/2023 10:11 AM CAR RENTAL SALES ASSISTANT documented in this encounter Results * Direct Laryngoscopy-Otorhinolaryngology Image Exam (03/05/2023 10:11 AM CAR RENTAL SALES ASSISTANT) 03/05/2023 10:5 1 AM CAR RENTAL SALES ASSISTANT Narrative IIMS - 03/05/2023 10:11 AM CAR RENTAL SALES ASSISTANT This order has been created and auto-finalized to support the import of images acquired without order. The clinical documentation to support these images can be found on the encounter that produced images. Provider Not In System IMG NON RAD IMAGI NG PROCEDURES IIMS NA documented in this encounter Visit Diagnoses Not on filedocumented in this encounter
--- OUTSIDE RECORDS SUMMARY | 2023-05-07 11:03 | XMS_ITS | Encounter Summary ---
Author Name Unknown Organization [facility] Address [address] [place] [address] Care Team Providers Care Icing Mixer Name Role Phone Unavailable Primary Care Provider Unavailabl e Reason for Referral * Outpatient (Routine) - Closed Specialty Diagnoses / Procedures Referred By Diamond montemayor Referred To Contact Radiation Oncology Diagnoses Mass Tonsil Mass Neck David Soto M.D. [address] [place] [phone] [facility] Referral ID Status Reason Start Date Expiration Date Visits Re quested Visits Authorized [id number] Closed 02/24/2023 02/24/2024 1 1 BEADER MAKER Reason for Visit * Outpatient (Routine) - Closed Specialty Diagnoses / Procedures Referred By Diamond montemayor Referred To Contact Radiation Oncology Diagnoses Mass Tonsil Mass Neck David Soto M.D. [address] [place] [phone] [facility] Referral ID Status Reason Start Date Expiration Date Visits Re quested Visits Authorized [id number] Closed 02/24/2023 02/24/2024 1 1 Encounter Details Date Type Department Care Team (Latest Contact Info) Description 03/05/2023 12:18 PM TIRE BEADER MAKER - 03/05/2023 1:35 PM TIRE BEADER MAKER Hospital Encounter Department of Radiation Oncology in [place], [place] [address] [place] [phone] Parvez Byrd M.D. [address] [place] [address] Malignant Neoplasm Of Tonsil (HCC) (Primary Dx); [...] Sex Assigned at Male 03/01/2023 1:25 PM TIRE BEADER MAKER Gender Identity Male 03/01/2023 1:25 PM TIRE BEADER MAKER Sexual Orientation Not on file documented as of this encounter Last Filed Vital Signs Vital Sign Reading Time Taken Comments Blood Pressure - - Pulse - - Temperature - - Respiratory Rate - - Oxygen Saturation - - Inhaled Oxygen Concentration - - Weight 119 kg (261 lb 6.4 oz) 03/05/2023 1:06 PM TIRE BEADER MAKER Height - - Body Mass Index - [...] not included. REF PROVIDER: David Soto M.D. [address] [place] [phone] CHIEF COMPLAINT/PURPOSE OF VISIT: Mr. Roland is [...] outside. He was referred to [facility] where a PET/CT was performed on 03/02 [...] closer to home and is close to [place]. Further treatment triage to follow after pathology [...] by: Parvez Byrd M.D. 03/05/2023 1:25 PM TIRE BEADER MAKER BEADER MAKER documented in this encounter Plan of Treatment Upcoming Encounters Date Type Department Care Team (Late st Contact Info) Description 05/08/2023 8:00 AM TIRE BEADER MAKER Appointment Department of Radiation Oncology in [address] [phone] Lauren Hernandez M.D. [address] [place] [phone] 05/11/2023 8:15 AM TIRE BEADER MAKER Appointment Department of Radiation Oncology in [address] [phone] Lauren Hernandez M.D. [address] [place] [address] Scheduled Referrals Name Type Priority Associated Diagnoses Order Schedule Radiation Oncology - Head / neck consult (clinic) Outpatient Referral Routine Mass Tonsil Mass Neck Once for 1 Occurrences starting 03/05/2023 until 03/05/2023 documented as of this encounter Visit Diagnoses Diagnosis Malignant Neoplasm Of Tonsil (HCC)- Primary Mass Tonsil Mass Neck documented in this encounter
--- OUTSIDE RECORDS SUMMARY | 2023-05-07 11:03 | XMS_ITS | Encounter Summary ---
Author Name Unknown Organization [facility] Address [address] [place] [address] Care Team Providers Care Chemical Process Operator Name Role Phone Unavailable Primary Care Provider Unavailabl e Reason for Visit * Speech Pathology (Routine) - Closed Specialty Diagnoses / Procedures Referred By Contac t Referred To Contact Diagnoses Other Diseases Of Pharynx Localized Enlarged Lymph Nodes Procedures APPEALS ASSISTANT Dysphagia evaluate and treat David Soto M.D. [address] [place] [phone] [facility] Referral ID Status Reason Start Date Expiration Date Visits Re quested Visits Authorized [id number] Closed 03/05/2023 03/04/2024 1 1 Encounter Details Date Type Department Care Team (Latest Contact Info) Description 03/09/2023 10:30 AM CENTRIFUGAL OPERATOR Comprehensive Visit Department of Neurology in [place], [place] [address] [place] [phone] David Soto M.D. [address] [place] [phone] Shabnam Ascencio M.S., CCC-APPEALS ASSISTANT [address] [place] [phone] Dysphagia Oropharyngeal Phase (Primary Dx); Malignant Neoplasm [...] your living situation today? I have a [facility] place to live 03/01/2023 Sex and Gender Information Value Date Recorded Sex Assigned at Male 03/01/2023 1:25 PM CENTRIFUGAL OPERATOR Gender Identity Male 03/01/2023 1:25 PM CENTRIFUGAL OPERATOR Sexual Orientation Not on file documented as of this encounter Consult Notes * Shabnam Ascencio MFcoSFco, CCC-APPEALS ASSISTANT - 03/09/2023 10:30 AM CST Speech Pathology [...] Speech Voice: Within Normal Limits (WNL) Resonance (JACKSCREW MAN Function): Within Normal Limits (WNL) Articulation: Within [...] laryngeal penetration/aspiration is not felt to be exhibit display representative of the patient's swallow function. There was no significant pharyngeal residue after any swallow. The results of today's swallow study were reviewed in detail with the patient and his who verbalized understanding of the information provided and asked several thoughtful questions which were answered to the best of my ability within the APPEALS ASSISTANT scope of practice. I provided brief education [...] if indicated after treatment plan is determined RIFUGAL OPERATOR documented in this encounter Plan of Treatment Upcoming Encounters Date Type Department Care Team (Late st Contact Info) Description 05/08/2023 8:00 AM CENTRIFUGAL OPERATOR Appointment Department of Radiation Oncology in [place], [place] [address] [place] [address] Lauren Hernandez M.D. [address] [place] [address] 05/11/2023 8:15 AM CENTRIFUGAL OPERATOR Appointment Department of Radiation Oncology in [place], [place] [address] [place] [address] Lauren Hernandez M.D. 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
--- OUTSIDE RECORDS SUMMARY | 2023-05-07 11:03 | XMS_ITS | Encounter Summary ---
Author Name Unknown Organization [facility] Address [address] [place] [address] Care Team Providers Care Back Tufter Name Role Phone Unavailable Primary Care Provider Unavailabl e Reason for Referral * Outpatient (Routine) - Closed Specialty Diagnoses / Procedures Referred By Diamond montemayor Referred To Contact Radiation Oncology Diagnoses Malignant Neoplasm Of Oropharynx (HCC) Fracisco Barron P.A.-C. [address] [place] [phone] [facility] Referral ID Status Reason Start Date Expiration Date Visits Re quested Visits Authorized [id number] Closed 03/10/2023 03/09/2024 1 1 Scheduling Instructions Roby OPERATIONS MANAGER Encounter Details Date Type Department Care Team (Late st Contact Info) Description 03/10/2023 Orders Only Department of Oncology in [place], [place] [address] [place] [phone] Ana Quinonez, RJurgen Malignant Neoplasm Of Oropharynx [...] Sex Assigned at Male 03/01/2023 1:25 PM AREA OPERATIONS MANAGER Gender Identity Male 03/01/2023 1:25 PM AREA OPERATIONS MANAGER Sexual Orientation Not on file documented as of this encounter Plan of Treatment Upcoming Encounters Date Type Department Care Team (Late st Contact Info) Description 05/08/2023 8:00 AM AREA OPERATIONS MANAGER Appointment Department of Radiation Oncology in [place], [place] [address] [place] [phone] Lauren Hernandez M.D. [address] [place] [address] 05/11/2023 8:15 AM AREA OPERATIONS MANAGER Appointment Department of Radiation Oncology in [place], [place] [address] [place] [address] [place] [address] Scheduled Referrals Name Type Priority Associated Diagnoses Orde r Schedule Radiation Oncology - Head / neck consult (clinic) Outpatient Referral Routine Malignant Neoplasm Of Oropharynx (HCC) Expected: 03/10/2023 (Approximate), Expires: 06/10/2024 documented as of this encounter Visit Diagnoses Diagnosis Malignant Neoplasm Of Oropharynx (HCC)- Primary documented in this encounter
--- OUTSIDE RECORDS SUMMARY | 2023-05-07 11:03 | XMS_ITS | Encounter Summary ---
Author Name Unknown Organization [facility] Address [address] [place] [address] Care Team Providers Care Account Resolution Specialist Name Role Phone Unavailable Primary Care Provider Unavailabl e Reason for Referral * Outpatient (Routine) - Closed Specialty Diagnoses / Procedures Referred By Diamond montemayor Referred To Contact Diagnoses Other Diseases Of Pharynx Localized Enlarged Lymph Nodes Procedures FL Swallow Function with Video and Speech or OT David Soto M.D. [address] [place] [address] [facility] Referral ID Status Reason Start Date Expiration Date Visits Re quested Visits Authorized [id number] Closed 03/05/2023 03/04/2024 1 1 OF ICT Reason for Visit * Outpatient (Routine) - Canceled Specialty Diagnoses / Procedures Referred By Diamond montemayor Referred To Contact Diagnoses Other Diseases Of Pharynx Localized Enlarged Lymph Nodes Procedures FL Esophagram Single Contrast David Soto M.D. [address] [place] [phone] [facility] Referral ID Status Reason Start Date Expiration Date V isits Requested Visits Authorized [id number] Canceled 03/05/2023 03/04/2024 1 1 Encounter Details Date Type Department Care Team (Latest Contact Info) Description 03/09/2023 10:34 AM HEAD OF ICT - 03/09/2023 11:59 PM HEAD OF ICT Hospital Encounter Department of Radiology, [facility], in [place], [place] [address] [place] [phone] David Soto M.D. [address] [place] [phone] Shabnam Ascencio M.S., CCC-COTTON GINNER [address] [place] [phone] Malignant Neoplasm Of Oropharynx (HCC); Secondary Malignant [...] Sex Assigned at Male 03/01/2023 1:25 PM HEAD OF ICT Gender Identity Male 03/01/2023 1:25 PM HEAD OF ICT Sexual Orientation Not on file documented as [...] st Contact Info) Description 05/08/2023 8:00 AM HEAD OF ICT Appointment Department of Radiation Oncology in [place], [place] [address] [place] [phone] Lauren Hernandez M.D. [address] [place] [address] 05/11/2023 8:15 AM HEAD OF ICT Appointment Department of Radiation Oncology in [address] [phone] Lauren Hernandez M.D. 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 Negative video swallowing study. Narrative 03/09/2023 10:53 AM HEAD OF ICT EXAM: FL SWALLOW FUNCTION WITH VIDEO AND [...] swallowing study. David Soto M.D. IMNishant FLUOROSCOPY [place] OCEDURES documented in this encounter Visit Diagnoses [...] For 1 dose Given 03/09/2023 10:49 AM HEAD OF ICT 20 mL barium 81 % (w/w) oral powder for suspension 20 g (VARIBAR THIN LIQUID) 20 g (50 mL), oral, Once in imaging, contrast, Starting on 03/09/23 at 1049, For 1 dose Given 03/09/2023 10:49 AM HEAD OF ICT 50 mL documented in this encounter
--- OUTSIDE RECORDS SUMMARY | 2023-05-07 11:03 | XMS_ITS | Encounter Summary ---
Author Name Unknown Organization [facility] Address [address] [place] [address] Care Team Providers Care Program Director/Morning Show Host Name Role Phone Unavailable Primary Care Provider Unavailabl e Reason for Visit * Outpatient (Routine) - Closed Specialty Diagnoses / Procedures Referred By Diamond t Referred To Contact Otorhinolaryngology David Soto M.D. [address] [place] [phone] [facility] Referral ID Status Reason Start Date Expiration Date Visits Re quested Visits Authorized [id number] Closed 03/05/2023 03/04/2026 1 1 Encounter Details Date Type Department Care Team (Latest Contact Info) Description 03/09/2023 1:30 PM TROUBLE DISPATCHER Office Visit Department of Otorhinolaryngology in [place], [place] [address] [place] [phone] David Soto M.D. [address] [place] [phone] Malignant Neoplasm Of Tonsil (HCC) (Primary Dx); [...] living situation today? I have a [facility] place to live 03/01/2023 Sex and Gender Information Value Date Recorded Sex Assigned at Male 03/01/2023 1:25 PM TROUBLE DISPATCHER Gender Identity Male 03/01/2023 1:25 PM TROUBLE DISPATCHER Sexual Orientation Not on file documented [...] however, he prefers to get treatment in [place]. Referral to colleagues in [place]. 03/10/2023 Other Dentistry appointment at [facility] where the patient's oral health was deemed adequate for chemoradiation. A dental lab order was initiated for [facility] in-house lab for fabrication of fluoride carriers. [...] developed and its performance characteristics determined by [facility] in a manner consistent with CLIA requirements. [...] MD Otorhinolaryngology - Head & Neck Surgery BLE DISPATCHER documented in this encounter Consult Notes * Fracisco Barron P.A.-C. - 03/09/2023 1:30 PM CST SUBJECTIVE REASON FOR VISIT Collaborating Physician: Dr. 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 We will make the referral to our [...] history/physical exam, counseling and coordination of care. BLE DISPATCHER documented in this encounter Plan of Treatment Upcoming Encounters Date Type Department Care Team (Late st Contact Info) Description 05/08/2023 8:00 AM TROUBLE DISPATCHER Appointment Department of Radiation Oncology in [address] [phone] Lauren Hernandez M.D. [address] [place] [phone] 05/11/2023 8:15 AM TROUBLE DISPATCHER Appointment Department of Radiation Oncology in [place], [place] [address] [place] [address] Lauren Hernandez M.D. 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
--- OUTSIDE RECORDS SUMMARY | 2023-05-07 11:03 | XMS_ITS | Encounter Summary ---
Author Name Unknown Organization [facility] Address [address] [place] [address] Care Team Providers Care Flash Welding Machine Operator Name Role Phone Unavailable Primary Care Provider Unavailabl e Reason for Visit * Outpatient (Routine) - Closed Specialty Diagnoses / Procedures Referred By Conttin t Referred To Contact Dentistry / Dental Specialties Diagnoses Other Diseases Of Pharynx Localized Enlarged Lymph Nodes David Soto M.D. [address] [place] [phone] [facility] Referral ID Status Reason Start Date Expiration Date Visits Re quested Visits Authorized [id number] Closed 03/05/2023 03/04/2024 1 1 Encounter Details Date Type Department Care Team (Latest Contact Info) Description 03/10/2023 4:00 PM PIPELINE CONTROLLER Comprehensive Visit Department of Dental Specialties in [place], [place] [address] [place] [phone] Joe Moseley B.D.S. [address] [place] [phone] Malignant Neoplasm Of Oropharynx (HCC); Secondary Malignant [...] Sex Assigned at Male 03/01/2023 1:25 PM PIPELINE CONTROLLER Gender Identity Male 03/01/2023 1:25 PM PIPELINE CONTROLLER Sexual Orientation Not on file documented as [...] have a primary dentist. Patient sees his [facility] dentist [facility] 6 months. Patient reports the [...] A dental lab order was initiated for [facility] in-house lab for fabrication of fluoride carriers. A folder was provided containing patient education materials and fluoride prescription. Questions were welcomed and answered to the best of my ability and patient reports no further questions at this time. Next Visit: mailing fluoride trays to patient (having radiation in [place]) This was a 60 minute appointment with greater than 50% of the time spent in face to face counselingand coordination of care. Valentin Taylor initiated documentation on behalf of Joe Sanchez B.D.S. who completed documentation and performed the service(s). LINE CONTROLLER Associated attestation - Dora Vivas D.D.S. - 03/23/2023 7:18 AM PIPELINE CONTROLLER I reviewed the case with the resident/fellow but did not see the patient. I agree with the assessment and plan as documented in the resident/fellow's note. documented in this encounter Plan of Treatment Upcoming Encounters Date Type Department Care Team (Late st Contact Info) Description 05/08/2023 8:00 AM PIPELINE CONTROLLER Appointment Department of Radiation Oncology in [place], [place] [address] [place] [phone] Lauren Hernandez M.D. [address] [place] [phone] 05/11/2023 8:15 AM PIPELINE CONTROLLER Appointment Department of Radiation Oncology in [place], [place] [address] [place] [phone] Lauren Hernandez M.D. 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 Fluoride carriers by Radha Engel Joe Moseley B.D.S. DENTAL JUAN CARLOS FULLER * [facility] (03/10/2023 5:56 PM PIPELINE CONTROLLER) Narrative Joe Moseley B.D.S. - 03/10/2023 5:56 PM PIPELINE CONTROLLER Panoramic radiograph taken and reviewed. Image(s) revealed [...] 19 #30 Joe Moseley B.D.S. 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
--- OUTSIDE RECORDS SUMMARY | 2023-05-07 11:04 | XMS_ITS | Encounter Summary ---
Author Name Unknown Organization [facility] Address [address] [place] [address] Care Team Providers Care Internet Sales Director Name Role Phone Unavailable Primary Care Provider Unavailabl e Reason for Referral * MRI/CAT/PET Scan (Routine) - Closed Specialty Diagnoses / Procedures Referred By Diamond montemayor Referred To Contact Diagnoses Mass Neck Mass Tonsil Procedures PET CT Skull to Thigh FDG David Soto M.D. [address] [place] [phone] [facility] Referral ID Status Reason Start Date Expiration Date Visits Re quested Visits Authorized [id number] Closed 02/18/2023 02/18/2024 1 1 * Outpatient (Routine) - Closed Specialty Diagnoses / Procedures Referred By Diamond montemayor Referred To Contact Diagnoses Mass Neck Mass Tonsil Procedures US Lymph Node Biopsy David Soto M.D. [address] [place] [phone] [facility] Referral ID Status Reason Start Date Expiration Date Visits Re quested Visits Authorized [id number] Closed 02/18/2023 02/18/2024 1 1 Encounter Details Date Type Department Care Team (Latest Contact Info) Description 02/18/2023 Orders Only Department of Otorhinolaryngology in [place], [place] [address] [place] [phone] Marlyn Santillan, RFcoN. [address] [place] [phone] Mass Neck (Primary Dx); Mass Tonsil Social [...] your living situation today? I have a [facility] place to live 03/01/2023 Sex and Gender Information Value Date Recorded Sex Assigned at Male 03/01/2023 1:25 PM MANAGER HEART Gender Identity Male 03/01/2023 1:25 PM MANAGER HEART Sexual Orientation Not on file documented as of this encounter Plan of Treatment Upcoming Encounters Date Type Department Care Team (Late st Contact Info) Description 05/08/2023 8:00 AM MANAGER HEART Appointment Department of Radiation Oncology in [place], [place] [address] [place] [phone] Lauren Hernandez M.D. [address] [place] [phone] 05/11/2023 8:15 AM MANAGER HEART Appointment Department of Radiation Oncology in [place], [place] [address] [place] [address] Lauren Hernandez M.D. [address] [place] [phone] documented as of this encounter Results * US Lymph Node Biopsy (03/05/2023 8:46 AM MANAGER HEART) Anatomical Region Laterality Modality Body, Ultrasound RST LOS, Ul trasound ARZ LOS, Procedure FLA LOS, Abdominal FLA LOS, Procedural N/A Ultrasound 03/05/2023 9:13 AM MANAGER HEART Impressions 03/05/2023 9:17 AM MANAGER HEART Ultrasound-guided biopsy of an enlarged left neck lymph node. EP Narrative 03/05/2023 9:17 AM MANAGER HEART EXAM: US LYMPH NODE BIOPSY PRE-PROCEDURE: Patient [...] neck lymph node. EP David Soto M.D. Nishant US PROCEDURES * PET CT Skull to Thigh FDG (03/02/2023 8:00 AM MANAGER HEART) Anatomical Region Laterality Modality Body, Nuclear Medicine PET R ST LOS, PET ARZ LOS, Nuclear Medicine PET FLA LOS, Nuclear Medicine N/A Positron Emission Tomography (PET), Positron Emission Tomography (PET) 03/02/2023 8:32 AM MANAGER HEART Impressions 03/02/2023 9:56 AM MANAGER HEART 1. 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 2. ??Possible FDG avid colon polyp. Recommend colonoscopy correlation, if clinically indicated. Narrative 03/02/2023 9:56 AM MANAGER HEART EXAM: ??PET CT SKULL TO THIGH FDG Serum glucose at time of F-18 FDG injection was 109 mg/dL. Patient followed standard dietary/fasting requirements for this exam. RADIOPHARMACEUTICAL/MEDS: Route: intravenous fludeoxyglucose F 18 injection CARE HOME (FDG F-18),9.96 millicurie TECHNIQUE: ??F-18 FDG [...] RADIOPHARMACEUTICAL/MEDS: Route: intravenous fludeoxyglucose F 18 injection CARE HOME (FDG F-18),9.96 millicurie TECHNIQUE: F-18 FDG [...] colonoscopy correlation, ifclinically indicated. David Soto M.D. IMG NM PROCEDURES documented in this encounter Visit Diagnoses Diagnosis Mass Neck- Primary Mass Tonsil Mass Neck Mass Tonsil Mass Neck Mass Tonsil documented in this encounter
--- OUTSIDE RECORDS SUMMARY | 2023-05-07 11:04 | XMS_ITS | Encounter Summary ---
Author Name Unknown Organization [facility] Address [address] [place] [address] Care Team Providers Care Conveyor System Dispatcher Name Role Phone Unavailable Primary Care Provider Unavailabl e Reason for Visit * Reason Onset Date Comments OSM Request 02/25/2023 Encounter Details Date Type Department Care Team (Latest Contact Info) Description 02/25/2023 Clinical Communication Department of Otorhinolaryngology in [place], [place] [address] [place] [phone] David Soto M.D. [address] [place] [phone] OSM Request Social History Tobacco Use Types [...] Sex Assigned at Male 03/01/2023 1:25 PM BILLER Gender Identity Male 03/01/2023 1:25 PM BILLER Sexual Orientation Not on file documented as of this encounter Miscellaneous Notes * Telephone Encounter - Shara Sarmiento - 02/27/2023 12:13 PM CDT Patient's imaging is now in Q-reads, no pathology needed. * Telephone Encounter - Shara Sarmiento - 02/26/2023 1:40 PM CDT Called to request imaging from: [facility] Attn: [facility] [place], [place] They are electronically pushing his imagin02/02/23-US Neck 02/12/23-CT Neck documented in this encounter Plan of Treatment Upcoming Encounters Date Type Department Care Team (Late st Contact Info) Description 05/08/2023 8:00 AM BILLER Appointment Department of Radiation Oncology in [place], [place] [address] [place] [phone] Lauren Hernandez M.D. [address] [place] [phone] 05/11/2023 8:15 AM BILLER Appointment Department of Radiation Oncology in [place], [place] [address] [place] [address] Lauren Hernandez M.D. [address] [place] [phone] documented as of this encounter Visit Diagnoses Not on filedocumented in this encounter
--- OUTSIDE RECORDS SUMMARY | 2023-05-07 11:04 | XMS_ITS | Encounter Summary ---
Author Name Unknown Organization [facility] Address [address] [place] [address] Care Team Providers Care Hotel Night Auditor Name Role Phone Unavailable Primary Care Provider Unavailabl e Encounter Details Date Type Department Care Team (Late st Contact Info) Description 11/27/2014 Historical Ophthalmology RST OPH Woodrow Epstein M.D. [address] [place] [phone] Social History Tobacco Use Types Packs/Day Years Used Date Smoking Tobacco: Never Assessed Sex and Gender Information Value Date Recorded Sex Assigned at Male 03/01/2023 1:25 PM FINANCIAL COMPLIANCE MANAGER Gender Identity Male 03/01/2023 1:25 PM FINANCIAL COMPLIANCE MANAGER Sexual Orientation Not on file documented [...] nasojugal fold CDM Reports - EYEGEN Id: [id number] Status: Fnl documented in this encounter Plan of Treatment Upcoming Encounters Date Type Department Care Team (Late st Contact Info) Description 05/08/2023 8:00 AM FINANCIAL COMPLIANCE MANAGER Appointment Department of Radiation Oncology in [address] [phone] Lauren Hernandez M.D. [address] [place] [phone] 05/11/2023 8:15 AM FINANCIAL COMPLIANCE MANAGER Appointment Department of Radiation Oncology in [address] [phone] Lauren Hernandez M.D. [address] [place] [phone] documented as of this encounter Visit Diagnoses Not on filedocumented in this encounter
--- OUTSIDE RECORDS SUMMARY | 2023-05-07 11:04 | XMS_ITS | Encounter Summary ---
Author Name Unknown Organization [facility] Address [address] [place] [address] Care Team Providers Care Golf Tournament Consultant Name Role Phone Unavailable Primary Care Provider Unavailabl e Reason for Visit * Reason Onset Date Comments Referral 02/20/2023 Encounter Details Date Type Department Care Team (Latest Contact Info) Description 02/20/2023 Clinical Communication Department of Otorhinolaryngology in [place], [place] [address] [place] [phone] Prescheduling, Provider Referral Social History Tobacco Use Types Packs/Day Years Used Date Smoking Tobacco: Unknown Nutrition Answer Date Recorded Nutrition: EVOO Fat Source Unknown 06/29 Nutrition: Servings of Fruits/Vegetables per Day Not on file 06/29/2020 Dental Answer Date Recorded Dental: Regular Dentist Unknown 06/30/19 21 Sex and Gender Information Value Date Recorded Sex Assigned at Male 03/01/2023 1:25 PM TRIALS MANAGER Gender Identity Male 03/01/2023 1:25 PM TRIALS MANAGER Sexual Orientation Not on file documented as of this encounter Plan of Treatment Upcoming Encounters Date Type Department Care Team (Late st Contact Info) Description 05/08/2023 8:00 AM TRIALS MANAGER Appointment Department of Radiation Oncology in [place], [place] [address] [place] [phone] Lauren Hernandez M.D. [address] [place] [phone] 05/11/2023 8:15 AM TRIALS MANAGER Appointment Department of Radiation Oncology in [place], [place] [address] [place] [address] Lauren Hernandez M.D. [address] [place] [phone] documented as of this encounter Visit Diagnoses Not on filedocumented in this encounter
--- OUTSIDE RECORDS SUMMARY | 2023-05-07 11:04 | XMS_ITS | Encounter Summary ---
Author Name Unknown Organization [facility] Address [address] [place] [address] Care Team Providers Care Aluminum Pourer Name Role Phone Unavailable Primary Care Provider Unavailabl e Reason for Visit * Reason Onset Date Comments Referral 02/23/2023 Encounter Details Date Type Department Care Team (Latest Contact Info) Description 02/23/2023 Clinical Communication Department of Otorhinolaryngology in [place], [place] [address] [place] [phone] Prescheduling, Provider Referral Social History Tobacco Use Types Packs/Day Years Used Date Smoking Tobacco: Unknown Nutrition Answer Date Recorded Nutrition: EVOO Fat Source Unknown 06/29 Nutrition: Servings of Fruits/Vegetables per Day Not on file 06/29/2020 Dental Answer Date Recorded Dental: Regular Dentist Unknown 06/30/19 21 Sex and Gender Information Value Date Recorded Sex Assigned at Male 03/01/2023 1:25 PM YARD COORDINATOR Gender Identity Male 03/01/2023 1:25 PM YARD COORDINATOR Sexual Orientation Not on file documented as of this encounter Plan of Treatment Upcoming Encounters Date Type Department Care Team (Late st Contact Info) Description 05/08/2023 8:00 AM YARD COORDINATOR Appointment Department of Radiation Oncology in [place], [place] [address] [place] [phone] Lauren Hernandez M.D. [address] [place] [phone] 05/11/2023 8:15 AM YARD COORDINATOR Appointment Department of Radiation Oncology in [place], [place] [address] [place] [address] Lauren Hernandez M.D. [address] [place] [phone] documented as of this encounter Visit Diagnoses Not on filedocumented in this encounter
--- OUTSIDE RECORDS SUMMARY | 2023-05-07 11:04 | XMS_ITS | Continuity of Care Document ---
Author Name [facility] Organization [facility] Care Team Providers Care Professor Of Public Administration Name Role Phone [facility] Unavailable Unavailable Problems Combined list of problems [...] Readiness Group. No follow up scheduled [facility] social media marketing analyst at this time. This treatment plan communicated to [facility] case therapist. See Behavioral Health Intake. Patient demonstrated understanding by verbalizing the treatment plan. Vocational Rehab paperwork completed. [facility] Resource List and Family Letter provided. [facility] lower back pain Active Condition PCM follow up PPD, continued Coumadin therapy for therapeutic range, left shoulder back pain, wt loss, B/P, smoking cessation; yearly check up for vision, hearing, dental, DM, HIV, PSA (2006), EKG, colon (f/u Q 3yrs) if indicated.Arrange Orthopedic, PT, Neur., Coumadin clinic if indicated. [facility] shoulder strain left Active Condition Will continue w ith a personal shopper 4 x wk to strengthen left shoulder girdle. Report any detrimental s/s and report to CM and PCM regarding progress or digress. [facility] lumbago Active Condition assistant athletic trainer is working with SM 4 x wk [...] INR as scheduled and follow up with Mechanical Applications Engineer on October 02. 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 DoD Preventive Medicine New Patient Evaluation Adult 40-64 Years Inactive Condition DoD assessment of patient condition work-related Inactive Condition Ultrasound, CT scan with contrast with blood work confirm cholecystitis. KATHERINE admitted , surgery done [id number], appendectomy also performed during operation. KATHERINE was released same day and had convalence leave until [id number]. Civilian PCM medically cleared KATHERINE [id number]. KATHERINE arrived at [id number], housing set up and intake done today with CM. WTU, PCM interviewed KATHERINE and plan is to RTD status so KATHERINE can rejoin his unit in [facility]. 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 Presently, KATHERINE states his pain is 0 and takes no analegic. Intake completed by CM. DoD visit for: postsurgical exam Inactive Condition DoD post cholecystectomy Active Condition Doing well a t this time. 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 Told to F/u with the physician in [facility]. DoD visit for: examination of subpopulation Inactive Condition DoD visit for: ears / hearing exam Active Condition DoD visit for: services physical Inactive Condition Pt public relations counselor ed from [phone] [facility] Patient Counseling: Inactive Condition D oD Medications [...] ORAL, ZYDUS PHARMACEU, 100 ea. BOTTLE Active [id number] 4 2023 Pharmac y Data Transac tion Service Facilit y atorvastati n 10 mg oral tablet atorvast atin 10 mg oral tablet Start Date: 08/23/20 Status: Ordered Ordered No Facilit y Access FENTANYL (fentanyl), 12 MCG/HR, PATCH TD72, TRANSDERM, [employer], 5 ea. BOX Active [id number] 4 2023 Pharmac y Data Transac tion Service Facilit y finasteride 5 mg oral tablet finaster henry 5 mg oral tablet Start Date: 09/28/20 Status: Ordered Ordered No Facilit y Access HYDROCODONE -ACETAMINOP HEN (hydrocodon e bitartrate/ acetaminoph en), 5 MG-300MG, TABLET, ORAL, MALLINCKROD T PH, 500 ea. BOTTLE Cancele d [id number] : 2022 Pharmac y Data Transac tion Service Facilit y HYDROCODONE -ACETAMINOP HEN (HYDROCODON E/ACETAMINO PHEN), 5MG-325MG, TABLET, ORAL, MALLINCKROD T PH, 500 ea. BOTTLE Active [id number] 2023 Pharmac y Data Transac tion Service Facilit y HYDROCODONE -ACETAMINOP HEN (HYDROCODON E/ACETAMINO PHEN), 5MG-325MG, TABLET, ORAL, MALLINCKROD T PH, 500 ea. BOTTLE Active [id number] 3 2022 Pharmac y Data Transac tion Service Facilit y HYDROCODONE -ACETAMINOP HEN (HYDROCODON E/ACETAMINO PHEN), 5MG-325MG, TABLET, ORAL, MALLINCKROD T PH, 500 ea. BOTTLE Active [id number] 3 2022 Pharmac y Data Transac tion Service Facilit y LIDOCAINE HCL VISCOUS (LIDOCAINE HCL), 20MG/ML, SOLUTION, MUCOUS MEM, [facility] 100 ml BOTTLE Cancele d [id number] : 2023 Pharmac y Data Transac tion Service Facilit y NALOXONE HCL (naloxone HCl), 4 MG, SPRAY, NASAL, [facility], 2 ea. BLIST PACK Active 4 2023 [...] ORAL, [facility]., 90 ea. BOTTLE Active [id number] 3 2022 Pharmac y Data Transac tion Service Facilit y Allergies, Adverse Reactions, Alerts Combined list of allergies from Department of Defense and Veterans Affairs facilities. It does not include entries that were removed or entered in error. Substance Category Reaction Severity Reaction type Status Date Reported Comments Source No Known Allergies Drug allergy (disorder) active 01/07/2008 Edna Gonzalezer LUIS Immunizations Combined list of available immunizations from the Department of Defense and Veterans Affairs facilities. Immunization Series Date Given Administered By Site Reaction Lot Number CVX Code Drug Tile Conduit Layer Status Comments Source influenza, seasonal, injectable-pf [id number] Novartis Pharmaceutica ls complet ed influenza , seasonal, injectabl e-pf 01/09/17 Given Ambulat ory Pharmac y influenza, seasonal, injectable-pf [id number] 140 Novartis Pharmaceutica ls complet ed influenza , seasonal, injectabl e-pf 01/09/17 Given Ambulat ory Pharmac y Influenza, seasonal, injectable, preservative free 1 [id number] 140 Novartis Pharmaceutica l Hellen. (NOV) complet ed Influenza , seasonal, injectabl e, preservat yomi free DoD influenza, seasonal, injectable-pf 2015 [id number] 140 Seqirus complet ed influenza , seasonal, injectabl e-pf 01/26/16 Given Ambulat ory Pharmac y influenza, seasonal, injectable-pf 2015 [id number] 140 Se[employer]irus complet ed influenza , seasonal, injectabl e-pf 01/26/16 Given Ambulat ory Pharmac y Influenza, seasonal, injectable, preservative free 1 2015 [id number] 140 Seqirus (SEQ) comple t ed Influenza [...] quadrivalent, preservative free 1 2014 [id number] SmithKline (SKB) complet ed Influenza , injectabl e, quadrival ent, preservat yomi free DoD varicella virus vaccine 2014 [id number] 21 Merck & Company Inc complet ed varicella virus vaccine 12/16/14 Given Ambulat ory Pharmac y varicella virus vaccine 2014 [id number] 21 Merck & Company Inc complet ed varicella virus vaccine 12/16/14 Given Ambulat ory Pharmac y varicella virus vaccine 1 2014 [id number] 21 Merck (MSD) complet ed varicella virus vaccine DoD anthrax vaccine 2014 [id number] 24 Emergent Biosolutions complet ed anthrax vaccine 06/04/14 Given Ambulat ory Pharmac y anthrax vaccine 2014 [id number] 24 [employer] complet ed anthrax vaccine 06/04/14 Given Ambulat ory Pharmac y anthrax vaccine 6 2014 [id number] 24 [employer] [place] ([facility]) complet ed anthrax vaccine DoD measles/mumps /rubella virus vaccine 2014 [id number] 03 Merck & Company Inc complet ed measles/m umps/rube lla virus vaccine 04/30/14 Given Ambulat ory Pharmac y measles/mumps /rubella virus vaccine 2014 [id number] 03 Merck & Company Inc complet ed measles/m umps/rube lla virus vaccine 04/30/14 Given Ambulat ory Pharmac y measles, mumps and rubella virus vaccine 2 2014 [id number] 03 Merck (MSD) complet ed measles, mumps [...] quadrivalent, preservative free 1 2013 [id number] 150 Smithine (SKB) complet ed Influenza , injectabl e, quadrival ent, preservat yomi free DoD pneumococcal polysaccharid e, 23 valent 2013 [id number] 33 Merck & Company Inc complet ed pneumococ lyndsey polysacch aride, 23 valent 10/03/13 Given Ambulat ory Pharmac y typhoid Vi capsular polysaccharid e vac 2013 [id number] 101 [employer] Inc. complet ed typhoid Vi capsular polysacch aride vac 10/03/13 Given Ambulat ory Pharmac y anthrax vaccine 2013 [id number] 24 Emergent [employer] complet ed anthrax vaccine 10/03/13 Given Ambulat ory Pharmac y pneumococcal polysaccharid e, 23 valent 2013 [id number] 33 Merck & Teklatech Inc complet ed pneumococ lyndsey polysacch aride, 23 valent 10/03/13 Given Ambulat ory Pharmac y anthrax vaccine 2013 [id number] 24 [employer] complet ed anthrax vaccine 10/03/13 Given Ambulat ory Pharmac y typhoid Vi capsular polysaccharid e vac 2013 [id number] 101 [employer]. complet ed typhoid Vi capsular polysacch aride vac 10/03/13 Given Ambulat ory Pharmac y anthrax vaccine 5 2013 [id number] 24 [employer] [place] ([facility]) complet ed anthrax vaccine DoD pneumococcal polysaccharid e vaccine, 23 valent 1 2013 [id number] 33 Merck (MSD) complet ed pneumococ lyndsey polysacch aride vaccine, 23 valent DoD typhoid Vi capsular polysaccharid e vaccine 1 2013 [id number] 101 Jackson (AD) complet ed typhoid Vi capsular polysacch aride vaccine DoD Influenza, injectable, MDCK-pf 2012 [id number] 153 CSL Behring complet ed Influenza , injectabl e, MDCK-pf 02/19/13 Given Ambulat ory Pharmac y Influenza, injectable, MDCK-pf 2012 [id number] 153 C[employer]ring complet ed Influenza , injectabl e, MDCK-pf 02/19/13 Given Ambulat ory Pharmac y Influenza, injectable, Madin Mary Canine Kidney, preservative free 1 2012 [id number] 153 CSL [employer]otherap[employer] Inc. (CS) complet ed Influenza , injectabl e, Madin Mary Canine Kidney, preservat yomi free DoD tetanus, diphtheria, acellular pertu is 2012 [id number] 33A 115 Unknown complet ed tetanus, diphtheri a, acellular pertussis 07/31/12 Given Ambulat ory Pharmac y tetanus, diphtheria, acellular pertu is 2012 [id number] 33A 115 Unknown complet ed tetanus, diphtheri a, acellular pertussis 07/31/12 Given Ambulat ory Pharmac y tetanus toxoid, reduced diphtheria toxoid, and acellular pertu is vaccine, adsorbed 1 2012 [id number] 33A 115 Unknown (UNK) complet ed tetanus toxoid, reduced diphtheri a toxoid, and acellular pertussis vaccine, adsorbed DoD influenza, seasonal, injectable 2011 [id number] 1A 141 C[employer] Behring complet ed influenza , seasonal, injectabl e 01/17/12 Given Ambulat ory Pharmac y influenza, seasonal, injectable 2011 [id number] 1A 141 C[employer]ring complet ed influenza , seasonal, injectabl e 01/17/12 Given Ambulat ory Pharmac y Influenza, seasonal, injectable 1 2011 [id number] 1A 141 CS Macrocosm[employer] ([facility]) complet ed Influenza , seasonal, injectabl e DoD influenza, seasonal, injectable-pf 2010 [id number] 140 CSL Behring complet ed influenza , seasonal, injectabl e-pf 01/11/11 Given Ambulat ory Pharmac y influenza, seasonal, injectable-pf 2010 [id number] 140 C[employer]ring complet ed influenza , seasonal, injectabl e-pf 01/11/11 Given Ambulat ory Pharmac y Influenza, seasonal, injectable, preservative free 1 2010 [id number] 140 CS [employer] ([facility]) complet ed Influenza , seasonal, injectabl e, preservat yomi free DoD influenza virus vaccine,split 2009 [id number] 15 Unknown complet ed influenza virus vaccine,s plit 03/09/10 Given Ambulat ory Pharmac y influenza virus vaccine,split 2009 [id number] 15 Unknown complet ed influenza virus vaccine,s plit 03/09/10 Given Ambulat ory Pharmac y influenza virus vaccine, split virus (incl. purified surface antigen)-reti red CODE 1 2009 [id number] 15 Unknown (UNK) comple t ed influenza virus vaccine, split virus (incl. purified surface antigen)- retired CODE DoD Novel influenza-H1N 1-09, all formul 2009 UNK 128 CSL Behring complet ed Novel influenza -I8W1-56, all formul 06/03/09 Given Ambulat ory Pharmac y Novel influenza-H1N 1-09, all formul 2009 UNK 128 C[employer] Behring complet ed Novel influenza -F6I2-07, all formul 06/03/09 Given Ambulat ory Pharmac y Novel influenza-H1N 1-09, all formulations 1 2009 UNK 128 CS [employer] (CS) complet ed Novel influenza -U3M7-88, all formulati ons DoD influenza virus vaccine,split 2008 [id number] 1A 15 C[employer] Behring complet ed influenza virus vaccine,s plit 02/17/09 Given Ambulat ory Pharmac y influenza virus vaccine,split 2008 [id number] 1A 15 C[employer] Behring complet ed influenza virus vaccine,s plit 02/17/09 Given Ambulat ory Pharmac y influenza virus vaccine, split virus (incl. purified surface antigen)-reti red CODE 1 2008 [id number] 1A 15 [facility] [employer] (CS) complet ed influenza virus vaccine, split virus [...] (incl. purified surface antigen)- retired CODE DoD tuberculin purified protein derivative 2007 [id number] 96 [facility] complet ed tuberculi n purified protein derivativ e 07/20/07 Given Ambulat ory Pharmac y influenza virus vaccine, live 2007 [id number] 111 [employer] comple t ed influenza virus vaccine, live 04/27/07 Given Ambulat ory Pharmac y anthrax vaccine 2007 [id number] 24 [employer] complet ed anthrax vaccine 04/27/07 Given Ambulat ory Pharmac y influenza virus vaccine, live 2007 [id number] 111 [employer] comple t ed influenza virus vaccine, live 04/27/07 Given Ambulat ory Pharmac y anthrax vaccine 2007 [id number] 24 [employer] complet ed anthrax vaccine 04/27/07 Given Ambulat ory Pharmac y anthrax vaccine 4 2007 [id number] 24 [employer] Tani (MIP) complet ed anthrax vaccine DoD influenza virus vaccine, live, attenuated, for intranasal use 1 2007 [id number] 111 [employer]. (MED) complet ed influenza virus vaccine, live, attenuate d, for intranasa l use DoD vaccinia (smallpox) vaccine 2006 [id number] 75 GLO complet ed vaccinia (smallpox ) vaccine 10/12/06 Given Ambulat ory Pharmac y vaccinia (smallpox) vaccine 2006 [id number] 75 CSR [facility] complet ed vaccinia (smallpox ) vaccine 10/12/06 Given Ambulat ory Pharmac y vaccinia (smallpox) vaccine 1 2006 [id number] 75 [facility] (WAL) complet ed vaccinia (smallpox ) vaccine DoD anthrax vaccine 2006 [id number] 24 [employer] complet ed anthrax vaccine 08/31/06 Given Ambulat ory Pharmac y anthrax vaccine 2006 [id number] 24 [employer] complet ed anthrax vaccine 08/31/06 Given Ambulat ory Pharmac y anthrax vaccine 3 2006 [id number] 24 [employer] [place] (MIP) complet ed anthrax vaccine DoD anthrax vaccine 2006 [id number] 24 [employer] complet ed anthrax vaccine 08/04/06 Given Ambulat ory Pharmac y anthrax vaccine 2006 [id number] 24 [employer] complet ed anthrax vaccine 08/04/06 Given Ambulat ory Pharmac y anthrax vaccine 2 2006 [id number] 24 [employer] [place] (MIP) complet ed anthrax vaccine DoD typhoid Vi capsular polysaccharid e vac 2006 [id number] 101 [employer]ring complet ed typhoid Vi capsular polysacch aride vac 3/23/07 Given Ambulat ory Pharmac y influenza virus vaccine, unspecified 2006 [id number] 3BA 88 Unknown complet ed influenza virus vaccine, unspecifi ed 07/17/06 Given Ambulat ory Pharmac y anthrax vaccine 2006 [id number] 24 [employer] complet ed anthrax vaccine 07/17/06 Given Ambulat ory Pharmac y typhoid Vi capsular polysaccharid e vac 2006 [id number] 101 C[employer]ring complet ed typhoid Vi capsular polysacch aride vac 07/17/06 Given Ambulat ory Pharmac y influenza virus vaccine, unspecified 2006 [id number] 3BA 88 Unknown complet ed influenza virus vaccine, unspecifi ed 07/17/06 Given Ambulat ory Pharmac y anthrax vaccine 2006 [id number] 24 [employer] complet ed anthrax vaccine 07/17/06 Given Ambulat ory Pharmac y anthrax vaccine 1 2006 [id number] 24 [employer] [place] ([facility]) complet ed anthrax vaccine DoD influenza virus vaccine, unspecified formulation 1 2006 [id number] 3BA 88 Unknown (UNK) complet ed influenza virus vaccine, unspecifi ed formulati on DoD typhoid Vi capsular polysaccharid e vaccine 1 2006 [id number] 101 [employer] (AVB) complet ed typhoid Vi capsular polysacch aride vaccine DoD tuberculin purified protein derivative 2006 [id number] 96 [facility] complet ed tuberculi n purified protein derivativ e 07/15/06 Given Ambulat ory Pharmac y hepatitis A-hepatitis B vaccine 2005 [id number] [id number] 104 GlaxoSmithKli ne complet ed hepatitis A-hepatit is B vaccine 09/12/05 Given Ambulat ory Pharmac y tetanus-dipht h toxoids (Td) adult/adol 2005 [id number] 09 sanofi pasteur complet ed tetanus-d iphth toxoids (Td) adult/ado l 09/12/05 Given Ambulat ory Pharmac y hepatitis A-hepatitis B vaccine 2005 [id number] [id number] 104 GlaxoSmithKli ne complet ed hepatitis A-hepatit is B vaccine 09/12/05 Given Ambulat ory Pharmac y tetanus-dipht h toxoids (Td) adult/adol 2005 [id number] 09 sanofi pasteur complet ed tetanus-d iphth toxoids (Td) adult/ado l 09/12/05 Given Ambulat ory Pharmac y tetanus and diphtheria toxoids, adsorbed, preservative free, for adult use (2 Lf of tetanus toxoid and 2 Lf of diphtheria toxoid) 1 2005 [id number] 09 Sanofi Pasteur (PMC) complet ed tetanus and diphtheri a toxoids, adsorbed, preservat yomi free, for adult use (2 Lf of tetanus toxoid and 2 Lf of diphtheri a toxoid) DoD hepatitis A and hepatitis B vaccine 3 2005 [id number] [place], [place] [address]ine (SKB) complet ed hepatitis A and hepatitis B vaccine DoD influenza virus vaccine,split 2005 [id number] 15 sanofi pasteur complet ed influenza virus vaccine,s plit 05/03/05 Given Ambulat ory Pharmac y influenza virus vaccine,split 2005 [id number] 15 sanofi pasteur complet ed influenza virus vaccine,s plit 05/03/05 Given Ambulat ory Pharmac y influenza virus vaccine, split virus (incl. purified surface antigen)-reti red CODE 1 2005 [id number] 15 Sanofi Pasteur (PMC) complet ed influenza [...] ADM Date DC Date Status Disposition Source KELLEY Jackson(Hearin g Conservat ion-OST) OUTPATIENT [id number] KARSTEN CAST 08/19 Released w/o Limitations [facility]ear ing Conserv [facility]ion-[facility]) [facility] [place]([facility]) OUTPATIENT [id number] follow up on gallbla esthela michael SILVA MÉNDEZ LILLIAM 12/07 Released w/o Limitations [facility] KELLEY Joseph([facility]) [facility] [place](Case Managemen t) OUTPATIENT [id number] Case Managem ent KAYLEEN ESPINO 12/07 Released w/o Limitations [facility] KELLEY Joseph(Case Managem ent) Theater Facility OUTPATIENT [id number] 02/22 Released w/o Limitations Theater Facilit y [facility] OUTPATIENT [id number] 02/23 Released w/o Limitations Theater Facilit y Theater Facility OUTPATIENT [id number] 06/30 Admitted Theater Facilit y [facility] Internal Medicine) OUTPATIENT [id number] OIF/OEF PINKY RENEE 07/01 Released w/o Limitations [facility](L Interna l Medicin e) [facility] OUTPATIENT [id number] TCC LUIS MAZARIEGOS 07/01 Released with Work/Duty Limitations [facility]) [facility] [employer] [place]([facility] Case Managemen t) OUTPATIENT [id number] Case Managem ent PINNIX, ELIO L 07/05 Released w/o Limitations [facility] [place] Case Managem ent) [facility] [place]) OUTPATIENT [id number] MEDEVAC ISREAL PETERS 07/05 Released with Work/Duty Limitations [facility] [place]) [facility] [place]) OUTPATIENT [id number] lab work ISREAL PETERS 07/06 Released with Work/Duty Limitations [facility] [place]) [facility] [place]) TELE CONSULT [id number] LABS- PT/INR ISREAL PETERS 07/08 [facility] [place] [facility] [place] Case Managemen t) OUTPATIENT [id number] Case Managem ent PINKARENX, ELIO L 07/13 Released w/o Limitations [facility] [place] Case Managem ent) [facility] [place] OUTPAT[place] [id number] ISREAL PETERS 07/13 Released with Work/Duty Limitations [facility] [place] [facility] [place] OUTPATIENT [id number] FOLLOW UP/BLOO D WORK ISREAL PETERS 07/18 Released with Work/Duty Limitations [facility] [place]) [facility] [place] Case Managemen t) OUTPATIENT [id number] Case Managem ent PINNIX, ELIO L 07/20 Released w/o Limitations [facility] [place] Case Managem ent) [facility] [place]) TELE CONSULT [id number] BLOOD WORK TANK EMERY 07/22 [facility] [place]) [facility] [place]) OUTPATIENT [id number] FOLLOW UP/LABS ISREAL PETERS 07/25 Released with Work/Duty Limitations [facility] [place]) [facility] [place] [id number] NO TBI-TBI SCREENI NG/TEST ING PROCESS MANDI HAND 07/27 Released w/o Limitations [facility] [place]) [facility] [place] Case Managemen t) OUTPATIENT [id number] Case Managem ent PINBRANDON, ELIO L 08/04 Released w/o Limitations [facility] [place] Case Managem ent) [facility] [place]) OUTPATIENT [id number] Labs ISREAL PETERS 08/12 Released with Work/Duty Limitations [facility] [place]) [facility] [place] [place] [facility] TELE CONSULT [id number] labwork orders JOSE RODRIGUEZ 08/15 [facility] [place] [facility] [place] Case Managemen t) OUTPATIENT [id number] Case Managem ent PINNIX, ELIO L 08/22 Released w/o Limitations [facility] [place] Case Managem ent) [facility] [place] Case Managemen t) OUTPATIENT [id number] Case Managem ent PINNIX, ELIO L 08/30 Released w/o Limitations [facility] [place] Case Managem ent) Nataliia Collins[facility] [id number] [facility]/13 Released with Work/Duty Limitations [facility] [place] [place] OUTPATIENT [id number] CM intake of [facility] I YARELIS SYKES 09/13 Released with Work/Duty Limitations [facility] [place] [facility] [facility] [place] [facility] OUTPATIENT [id number] Telepho ne consult with PCM YARELIS SYKES 09/22 Released with Work/Duty Limitations [facility] [place] [facility] [facility] [place] [facility] OUTPATIENT [id number] Telepho ne confere nce YARELIS SYKES 10/03 Released with Work/Duty Limitations [facility] [place] [facility] [facility] [place] [facility] OUTPAT[place] [id number] Weekly report YARELIS SYKES 10/07 Released with Work/Duty Limitations [facility] [place] [facility] [facility] [place] [facility] OUTPAT[place] [id number] Phone confere nce with SM YARELIS SYKES 10/10 Released with Work/Duty Limitations [facility] [place] [facility] [facility] [place] [facility] OUTPATIENT [id number] S/P Hematol ogist appt YARELIS SYKES 10/11 Released with Work/Duty Limitations [facility] [place] [facility] [facility] [place] [facility] OUTPATIENT [id number] Initial case review with Crane Ladle Person YARELIS SYKES 10/14 Released with Work/Duty Limitations [facility] [place] [facility] [facility] [place] [facility] OUTPATIENT [id number] Weekly review YARELIS SYKES 10/21 Released with Work/Duty Limitations [facility] [place] [facility] [facility] [place] [facility] OUT[place]IENT [id number] Change of CM YARELIS SYKES 11/02 Released with Work/Duty Limitations [facility] [place] [facility] [facility] [place] [facility] TELE CONSULT [id number] weekly CM progres s note. SALOME WALTON 11/10 [facility] [place] [facility] [facility] [place] [facility] OUT[place] [id number] Weekly CM progres s note SALOME WALTON 11/10 Released w/o Limitations [facility] [place] [facility] [facility] [place] [facility] [id number] Weekly CM progres s note SALOME W[place]TON 11/28 Released w/o Limitations [facility] [place] [facility] [facility] [place] [facility] [id number] Weekly CM progres s note. SALOME WALTON 12/02 Released w/o Limitations [facility] [place] [facility] [facility] [place] [facility] [id number] Weekly CM progres s note SALOME WALTON 12/06 Released w/o Limitations [facility] [place] [facility] [facility] [place] [facility] [id number] Weekly cm progres s note SALOME WALTON 12/15 Released w/o Limitations [facility] [place] [facility] [facility] [place] [facility] [id number] Weekly CM progres s note. SALOME WALTON 12/23 Released w/o Limitations [facility] [place] [facility] [facility] [place] [facility] [id number] weekly CM progres s note. SALOME WALTON 01/06 Released w/o Limitations [facility] [place] [facility] [facility] [place] [facility] [id number] weekly cm progres s note SALOME WALTON 02/09 Released w/o Limitations [facility] [place] [place] [facility] [place] [id number] Weekly CM progres s note SALOME WALTON 02/17 Released w/o Limitations [facility] [place] [facility] [place] [facility] OUTPATIENT [id number] case review for refrad SALOME WALTON 02/23 Released w/o Limitations [facility] [place] [facility] [place] [facility] OUTPATIENT [id number] Weekly CM progres s note SALOME WALTON 03/22 Released w/o Limitations [facility] [place] [facility] [place] [facility] OUTPATIENT [id number] Weekly CM progres s noteSALOME RENO 04/05 Released w/o Limitations [facility] [place] [place] [facility] OUTPATIENT [id number] Weekly CM progres s note SALOME WALTON 04/19 Released w/o Limitations [facility] [place] [place] [employer]) OUTPATIENT [id number] Notes Entered by: BRENNAN HENDRICKSON 03 Oct 2013 1108 ------- ------- ------- ------- -- BRENNAN Jimenez 10/03 Released w/o Limitations [place] [place] [employer] [employer] OUTPATIENT [id number] Notes Entered by: Carmela CHAMPAGNE 03 Oct 2013 1156 ------- ------- ------- ------- -- GUI DUNHAM 10/03 Released w/o Limitations [place] [place] [employer] [facility] OUTPATIENT [id number] Notes Entered by: CARISSA HA 03 Oct 2013 1350 ------- ------- ------- ------- -- ELLEN LOPEZ 10/03 [place]ased w/[place] Limitations [place] [place] [place]) OUTPATIENT [id number] Notes Entered by: Rebekah CHONG 04 Oct 2013 0724 ------- ------- ------- ------- -- PRE SAMARA CHONG 10/04 Released w/o Limitations [place]) [facility] OUTPATIENT [id number] [facility] 01/07 Released w/o Limitations [facility] [place] ion) OUTPATIENT [id number] LUZ MARIA ALEMAN 08/21 Released w/[place]itations [place]) [place] [address] OUTPATIENT [id number] Notes Entered by: MARIA A HENDRICKS 22 Aug 2014 1353 ------- ------- ------- ------- -- CHITO Zimmerman 08/22 Released w/o Limitations [place] [address]) [place] TELE CONSULT [id number] Notes Entered by: ANIL BURCH 30 Jan 2020 0821 ------- ------- ------- ------- -- BARBARA Marcelo 01/29 [facility], [place] Procedures Combined list of: 1) Procedures from Department of Veterans Affairs facilities going back up to thelast 18 months, not all VA non-surgical procedures are included; 2) All procedures from the Department of Defense facilities. Procedure Procedure Type Code Date Perfomer Goran Parks e [facility] Testing Audiometry Group Testing [id number] 015 SAMARA CHONG [facility] Audiometry Group Testing Audiometry Group Testing 22497 014 ARTHUR WHITEHEAD [facility] Spectacles Services Fitting Bifocal Except For Aphakia Spectacles Services Fitting Bifocal Except For Aphakia 12988 014 ELLEN LAND THE PROCEDURES NEEDED TO ORDER GLASSES, TO INCLUDE ANATOMICAL MEASUREMENTS AND FRAME FITTING, WAS DONE ON THE DATE OF THE APPOINTMENT. DUE TO STAFFING ISSUES, THE ACTUAL GLASSES ORDER WAS SUBMITTED EITHER THE SAME DAY OR THE FOLLOWING WORK DAY. SEE SRTS FOR DETAILS. [facility] Screening Test Of Visual Acuity, Quantitative, Bilateral Screening Test Of Visual Acuity, Quantitative, Bilateral 64023 014 ELLEN LAND Anthrax Vaccine For Subcutaneous Or Intramuscular Use Anthrax Vaccine For Subcutaneous Or Intramuscular Use 61000 BRENNAN HENDRICKSON Pneumococcal Polysaccharide Vaccine 23 Valent Intramuscular Pneumococcal Polysaccharide Vaccine 23 Valent Intramuscular 79923 BRENNAN HENDRICKSON Immunization Administration By Injection, Each Additional Vaccine Immunization Administration By Injection, Each Additional Vaccine 84896 BRENNAN HENDRICKSON Typhoid Vaccine Vi Capsular Polysaccharide, For Intramus Use Typhoid Vaccine Vi Capsular Polysaccharide, For Intramus Use 41425 BRENNAN HENDRICKSON Immunization Administration By Injection, One Vaccine Immunization Administration By Injection, One Vaccine 06146 BRENNAN HENDRICKSON Venipuncture Venipuncture 78622 BRENNAN HENDRICKSON Case Management, each 15 minutes 008 ELIO JOHN Case Management, each 15 minutes 008 ELIO JOHN Case Management, each 15 minutes 008 ELIO OJHN [facility] Psychotherapy Individual Approximately 30 Minutes 008 MANDI HAND DoD Case Management, each 15 minutes 008 ELIO JOHN [facility] Clinical Social Work Individual Outpatient Counseling 30 Minutes 008 CLAY DELANEY DoD Case Management, each 15 minutes 008 ELIO JOHN DoD Case Management, each 15 minutes 008 ELIO JOHN DoD Case Management, each 15 minutes 007 KAYLEEN ESPINO [facility] Patient education, not otherwise cla ified, non-physician provider, group, per se ion 007 KARSTEN NAZARIO Ear Protector Attenuation Measurements Ear Protector Attenuation Measurements 37116 007 KARSTEN NAZARIO Audiometry Group Testing Audiometry Group Testing 87676 007 KARSTEN NAZARIO AUDIOMETRIC TESTING OF GROUPS 015 DoD AUDIOMETRIC TESTING OF GROUPS 014 [facility] FITTING OF SPECTACLES, EXCEPT FOR APHAKIA; BIFOCAL 014 DoD ANTHRAX VACCINE, FOR SUBCUTANEOUS OR INTRAMUSCULAR USE 014 DoD CASE MANAGEMENT, EACH 15 MINUTES 008 DoD CASE MANAGEMENT, EACH 15 MINUTES 008 DoD CASE MANAGEMENT, EACH 15 MINUTES 008 [facility] INDIVIDUAL PSYCHOTHERAPY, INSIGHT ORIENTED, BEHAVIOR MODIFYING AND/OR SUPPORTIVE, IN AN OFFICE OR OUTPATIENT FACILITY, APPROXIMATELY 20 TO 30 MINUTES [id number] WITH THE PATIENT 008 DoD CASE MANAGEMENT, EACH 15 MINUTES 008 [facility] COLLECTION OF VENOUS BLOOD BY VENIPUNCTURE 008 [facility] INDIVIDUAL PSYCHOTHERAPY, INSIGHT ORIENTED, BEHAVIOR MODIFYING AND/OR SUPPORTIVE, IN AN OFFICE OR OUTPATIENT FACILITY, APPROXIMATELY 20 TO 30 MINUTES [id number] WITH THE PATIENT 008 DoD CASE MANAGEMENT, EACH 15 MINUTES 008 DoD CASE MANAGEMENT, EACH 15 MINUTES 008 DoD CASE MANAGEMENT, EACH 15 MINUTES 007 DoD UNLISTED VACCINE/TOXOID 007 DoD ANTHRAX VACCINE, FOR SUBCUTANEOUS OR INTRAMUSCULAR USE 007 [facility] PATIENT EDUCATION, NOT OTHERWISE CLASSIFIED, NON-PHYSICIAN PROVIDER, GROUP, PER SESSION [facility] ANTHRAX VACCINE, FOR SUBCUTANEOUS OR INTRAMUSCULAR USE [facility] SCREENING TEST OF VISUAL ACUITY, QUANTITATIVE, BILATERAL [facility] COLLECTION OF VENOUS BLOOD BY VENIPUNCTURE 007 [...] Plan No data available for this section 05/07/2023 Ambulatory Pharmacy Functional Status Combined list of recent functional and cognitive assessments recorded at Department of Defense and Veterans Affairs (VA).VA Functional Realitos Measurement (FIM) Scale: 1 = Total Assistance (Subject = 0% +), 2 = Maximal Assistance (Subject = 25% +), 3 = Moderate Assistance (Subject = 50% +), 4 = Minimal Assistance (Subject = 75% +), 5 = Supervision, 6 = Modified Realitos (Device), 7 = Complete Realitos (Timely, Safely). Assessment Date/Time Source Assessment Type Assessment Skill Assessment Score Assessment Details No data available for this section
--- OUTSIDE RECORDS SUMMARY | 2023-05-07 11:04 | XMS_ITS | Encounter Summary ---
Author Name Unknown Organization [facility] Address [address] [place] [address] Care Team Providers Care Digestion Operator Name Role Phone Unavailable Primary Care Provider Unavailabl e Reason for Referral * Outpatient (Routine) - Closed Specialty Diagnoses / Procedures Referred By Diamond montemayor Referred To Contact Radiation Oncology Diagnoses Mass Tonsil Mass Neck David Soto M.D. [address] [place] [phone] [facility] Referral ID Status Reason Start Date Expiration Date Visits Re quested Visits Authorized [id number] Closed 02/24/2023 02/24/2024 1 1 Encounter Details Date Type Department Care Team (Latest Contact Info) Description 02/24/2023 Orders Only Department of Otorhinolaryngology in [place], [place] [address] [place] [phone] Marlyn Santillan RJurgen [address] [place] [phone] Mass Tonsil (Primary Dx); Mass Neck Social [...] Sex Assigned at Male 03/01/2023 1:25 PM DRIVER SALES Gender Identity Male 03/01/2023 1:25 PM DRIVER SALES Sexual Orientation Not on file documented as of this encounter Plan of Treatment Upcoming Encounters Date Type Department Care Team (Late st Contact Info) Description 05/08/2023 8:00 AM DRIVER SALES Appointment Department of Radiation Oncology in [place], [place] [address] [place] [address] Lauren Hernandez M.D. 200 [place] [address] 05/11/2023 8:15 AM DRIVER SALES Appointment Department of Radiation Oncology in [place], [place] [address] [place] [phone] Lauren Hernandez M.D. [address] [place] [address] Scheduled Referrals Name Type Priority Associated Diagnoses Orde r Schedule Radiation Oncology - Head / neck consult (clinic) Outpatient Referral Routine Mass Tonsil Mass Neck Expected: 02/24/2023 (Approximate), Expires: 05/27/2024 documented as of this encounter Results * Magnesium (03/02/2023 8:11 AM DRIVER SALES) Pathologist [facility] Magnesium, S 2.3 1.7 - 2.3 mg/dL 03/02/2023 9:21 AM DRIVER SALES DTL Blood (Blood, Venous) 03/02/2023 8:11 AM DRIVER SALES 03/02/2023 9:04 AM DRIVER SALES David Soto M.D. LAB BLOOD ADD-ON [facility] [address] [place] [address], [facility] DTL [facility] [address] [place] [address] * CBC with Differential, Blood (03/02/2023 8:11 AM DRIVER SALES) Pathologist [facility] Hemoglobin 15.5 13.2 - 16.6 g/dL 03/02/2023 9:20 AM DRIVER SALES DTL Hematocrit 46.1 38.3 - 48.6 % 03/02/2023 9:20 AM DRIVER SALES DTL Erythrocytes 5.02 4.35 - 5.65 x10(12)/L 03/02/2023 9:20 AM DRIVER SALES DTL MCV 91.8 78.2 - 97.9 fL 03/02/2023 9:20 AM DRIVER SALES DTL RBC Distrib Width 12.9 11.8 - 14.5 % 03/02/2023 9:20 AM DRIVER SALES DTL Platelet Count 138 135 - 317 x10(9)/L 03/02/2023 9:20 AM DRIVER SALES DTL Leukocytes 5.4 3.4 - 9.6 x10(9)/L 03/02/2023 9:20 AM DRIVER SALES DTL Neutrophils 2.31 1.56 - 6.45 x10(9)/L 03/02/2023 9:20 AM DRIVER SALES [facility] Lymphocytes 2.63 0.95 - 3.07 x10(9)/L 03/02/2023 9:20 AM DRIVER SALES DTL Monocytes 0.45 0.26 - 0.81 x10(9)/L 03/02/2023 9:20 AM DRIVER SALES DTL Eosinophils <0.03 0.03 - 0.48 x10(9)/L 03/02/2023 9:20 AM DRIVER SALES DTL Basophils <0.03 0.01 - 0.08 x10(9)/L 03/02/2023 9:20 AM DRIVER SALES DTL Blood (Blood, Venous) 03/02/2023 8:11 AM DRIVER SALES 03/02/2023 8:35 AM DRIVER SALES David Soto M.D. LAB BLOOD ADD-ON [facility] [address] [place] [address], [facility] [address] [place], [place] [phone] [place] [address] [address] [place] [address] * Bilirubin, Direct (03/02/2023 8:11 AM DRIVER SALES) Bilirubin, Direct, S <0.2 0.0 - 0.3 mg/dL 03/02/2023 9:21 AM DRIVER SALES DTL Blood (Blood, Venous) 03/02/2023 8:11 AM DRIVER SALES 03/02/2023 9:04 AM DRIVER SALES David Soto M.D. LAB BLOOD ADD-ON [facility] [address] [place] [address], [facility] [address] [place] [address] * (ABNORMAL) Comprehensive Metabolic Panel (03/02/2023 8:11 AM DRIVER SALES) [facility] Potassium, S 4.9 3.6 - 5.2 mmol/L 03/02/2023 9:21 AM DRIVER SALES DTL Sodium, S 141 135 - 145 mmol/L 03/02/2023 9:21 AM DRIVER SALES DTL Chloride, S 104 98 - 107 mmol/L 03/02/2023 9:21 AM DRIVER SALES DTL Bicarbonate, S 27 22 - 29 mmol/L 03/02/2023 9:21 AM DRIVER SALES DTL Anion Gap 10 7 - 15 03/02/2023 9:21 AM DRIVER SALES DTL BUN (Blood Urea Nitrogen), S 17 8 - 24 mg/dL 03/02/2023 9:21 AM DRIVER SALES DTL Creatinine 1.35 0.74 - 1.35 mg/dL 03/02/2023 9:21 AM DRIVER SALES DTL Estimated GFR (eGFR) 58(L) >=60 mL/min/BS A 03/02/2023 9:21 AM DRIVER SALES DTL Comment: Estimated GFR calculated using the 2020 CKD_EPI creatinine equation. Calcium, Total, S 9.0 8.8 - 10.2 mg/dL 03/02/2023 9:21 AM DRIVER SALES DTL Glucose, S 98 70 - 140 mg/dL 03/02/2023 9:21 AM DRIVER SALES DTL Protein, Total, S 6.8 6.3 - 7.9 g/dL 03/02/2023 9:21 AM DRIVER SALES DTL Albumin, S 4.2 3.5 - 5.0 g/dL 03/02/2023 9:21 AM DRIVER SALES DTL Aspartate Aminotransferase (AST), S 41 8 - 48 U/L 03/02/2023 9:21 AM DRIVER SALES DTL Alkaline Phosphatase, S 67 40 - 129 U/L 03/02/2023 9:21 AM DRIVER SALES DTL Alanine Aminotransferase (ALT), S 52 7 - 55 U/L 03/02/2023 9:21 AM DRIVER SALES DTL Bilirubin, Total, S 0.4 0.0 - 1.2 mg/dL 03/02/2023 9:21 AM DRIVER SALES DTL Blood (Blood, Venous) 03/02/2023 8:11 AM DRIVER SALES 03/02/2023 9:04 AM DRIVER SALES David Soto M.D. LAB BLOOD ADD-ON [facility] [place] [address] [place] [address], [facility] DTL [facility] [address] [place] [address] documented in this encounter Visit Diagnoses Diagnosis Mass Tonsil- Primary Mass Neck documented in this encounter
--- OUTSIDE RECORDS SUMMARY | 2023-05-07 11:04 | XMS_ITS | Encounter Summary ---
Author Name Unknown Organization [facility] Address [address] [place] [address] Care Team Providers Care Attending Psychiatrist Name Role Phone Unavailable Primary Care Provider Unavailabl e Reason for Visit * Reason Onset Date Comments Appt Question 02/23/2023 Encounter Details Date Type Department Care Team (Latest Contact Info) Description 02/23/2023 Clinical Communication Department of Otorhinolaryngology in [place], [place] [address] [place] [address] Prescheduling, Provider Appt Question Social History Tobacco [...] your living situation today? I have a [facility] place to live 03/01/2023 Sex and Gender Information Value Date Recorded Sex Assigned at Male 03/01/2023 1:25 PM WOODWIND REEDS CUTTER Gender Identity Male 03/01/2023 1:25 PM WOODWIND REEDS CUTTER Sexual Orientation Not on file documented as of this encounter Plan of Treatment Upcoming Encounters Date Type Department Care Team (Late st Contact Info) Description 05/08/2023 8:00 AM WOODWIND REEDS CUTTER Appointment Department of Radiation Oncology in [address] [phone] Lauren Hernandez M.D. [address] [place] [address] 05/11/2023 8:15 AM WOODWIND REEDS CUTTER Appointment Department of Radiation Oncology in [address] [address] Lauren Hernandez M.D. [address] [place] [address] documented as of this encounter Visit Diagnoses Not on filedocumented in this encounter
--- OUTSIDE RECORDS SUMMARY | 2023-05-07 11:04 | XMS_ITS | Encounter Summary ---
Author Name Unknown Organization [facility] Address [address] [place] [address] Care Team Providers Care Lay Out Machine Operator Name Role Phone Unavailable Primary Care Provider Unavailabl e Reason for Referral * Outpatient (Routine) - Closed Specialty Diagnoses / Procedures Referred By Contac t Referred To Contact Otorhinolaryngology Diagnoses Other Diseases Of Pharynx Localized Enlarged Lymph Nodes Toi Yap M.D. [address], [place] [address] [facility] Referral ID Status Reason Start Date Expiration Date Visits Re quested Visits Authorized [id number] Closed 02/17/2023 02/17/2024 1 1 Encounter Details Date Type Department Care Team (Late st Contact Info) Description 02/17/2023 [facility] [address] [place] [address] Toi Yap M.D. [address] [place] [address] Other Diseases Of Pharynx (Primary Dx); Localized [...] Assigned at Male 03/01/2023 1:25 PM WEB PRODUCTION ASSISTANT Gender Identity Male 03/01/2023 1:25 PM WEB PRODUCTION ASSISTANT Sexual Orientation Not on file documented as of this encounter Plan of Treatment Upcoming Encounters Date Type Department Care Team (Late st Contact Info) Description 05/08/2023 8:00 AM WEB PRODUCTION ASSISTANT Appointment Department of Radiation Oncology in [place], [place] [address] [place] [address] Lauren Hernandez M.D. [address] [place] [address] 05/11/2023 8:15 AM WEB PRODUCTION ASSISTANT Appointment Department of Radiation Oncology in [place], [place] [address] [place] [address] Lauren Heranndez M.D. [address] [place] [address] Scheduled Referrals Name Type Priority Associated Diagnoses Order Schedule Otolaryngology Referral Outpatient Referral Routine Other Diseases Of Pharynx Localized Enlarged Lymph Nodes Expected: 02/17/2023 (Approximate), Expires: 05/20/2024 documented as of this encounter Visit Diagnoses Diagnosis Other Diseases Of Pharynx- Primary Localized Enlarged Lymph Nodes documented in this encounter
--- OUTSIDE RECORDS SUMMARY | 2023-05-07 11:04 | XMS_ITS | Clinical Summary ---
Author Name Unknown Organization [facility] Address [place], [place] [address] Care Team Providers Care Laboratory Mechanical Technician Name Role Phone Dedra Brennan MD Primary Care Provider [phone] Allergies No known active allergies Medications No [...] Influenza for age 65+ 12/26/2022 Care Teams Laboratory Mechanical Technician Relationship Specialty Start Date End Date Dedra Brennan MD PCP - General 10/26/07
[2023-05-07 11:07] LABS: Chloride* 105 mmol/L (96-114); Potassium* 4.4 mmol/L (3.6-5.1); Sodium* 136 mmol/L (135-149)
[2023-05-07 11:09] LABS: Creatinine* 0.8 mg/dL (0.5-1.5); Estimated Glomerular Filt Rate 98 ml/min
[2023-05-07 11:10] LABS: Anion Gap 5 mEq/L (7-15); Blood Urea Nitrogen* 18 mg/dL (7-30); Calcium* 8.6 mg/dL (8.4-10.6); Carbon Dioxide* 26 mmol/L (20-32); Glucose* 119 mg/dL (60-115); Magnesium* 2.3 mg/dL (1.5-2.6); Phosphorus* 3.2 mg/dL (2.5-4.5)
== END 2023-05-07 10:47 | disposition home or self-care (01) ==
LOC: NPINS 10:46
PROVIDERS: PCP Family Medicine
DX: C09.9 Malignant neoplasm of tonsil, unspecified (principal); Z71.3 Dietary counseling and surveillance
CPT/HCPCS: 80048; 83735; 84100

== ENCOUNTER 2023-05-20 09:00 | Outpatient (RCR) | payer BC, MEDICARE, OTHER, SELFPAY ==
[2023-03-13 12:36] LABS: Creatinine* 1.1 mg/dL (0.5-1.5); Est. Creatinine Clearance* 61.76; Estimated Glomerular Filt Rate 74 ml/min
--- NOTE | 2023-03-18 07:11 | URNOTE ---
Request received for authorization for Cisplatin ([id number]), Fosaprepitant (J1453), Palonosetron (J2469). Prior authorization is approved per [facility] [place]. Cisplatin approval Auth#[id number] date range: 03/17/2023 to 11/19/2023. Fosaprepitant (J1453), Palonosetron (J2469) approval Auth#[id number] date range: 03/17/2023 to 03/23/2024.
[2023-03-23 13:52] LABS: Eosinophils Absolute Auto 0.09 K/uL (0.00-0.50); Eosinophils Percent Auto 1.4 % (0.0-7.0); Hemoglobin* 14.6 gm/dL (13.5-17.5); Lymphocytes Absolute Auto 2.34 K/uL (0.90-2.90); Lymphocytes Percent Auto 37.1 % (20-44); Mean Corpuscular HGB Conc 33 gm/dL (32-36); Mean Corpuscular Hemoglobin 30 pg (26-34); Mean Corpuscular Volume 92 fL (80-100); Monocytes Percent Auto 10.1 % (0.0-11.0); Neutrophils Absolute Auto 3.24 K/uL (1.7-7.0); Neutrophils Percent Auto 51.4 % (42.0-72.0); Platelet Count* 176 K/uL (140-440); RDW Coefficient of Variation % 12.5 % (11.5-15.5); White Blood Count* 6.31 K/uL (4.50-11.00)
[2023-03-23 14:06] LABS: Slide Review Reflex No
[2023-03-23 14:09] LABS: Albumin* 4.3 g/dL (3.3-5.0); Chloride* 106 mmol/L (96-114)
[2023-03-23 14:10] LABS: Potassium* 4.2 mmol/L (3.6-5.1); Sodium* 141 mmol/L (135-149)
[2023-03-23 14:12] LABS: Alanine Aminotransferase* 30 U/L (4-50); Alkaline Phosphatase* 65 U/L (40-150); Anion Gap 12 mEq/L (7-15); Aspartate Amino Transferase* 26 U/L (12-35); Bilirubin Total* 0.4 mg/dL (0.1-1.5); Blood Urea Nitrogen* 20 mg/dL (7-30); Carbon Dioxide* 23 mmol/L (20-32); Creatinine* 1.3 mg/dL (0.5-1.5); Est. Creatinine Clearance* 52.26; Estimated Glomerular Filt Rate 61 ml/min; Total Protein* 7.5 g/dL (6.0-8.3)
[2023-03-23 14:13] LABS: Calcium* 9.2 mg/dL (8.4-10.6); Glucose* 164 mg/dL (60-115); Magnesium* 2.3 mg/dL (1.5-2.6)
--- NOTE | 2023-03-23 16:37 | ONC.NURNOTE ---
PSDS =1 PATIENT DENIED NEED FOR SS REFERRAL NO PROBLEM LIST ITEMS CHECKED OFF
--- NOTE | 2023-03-23 16:38 | ONC.NURNOTE ---
teaching completed with patient and reviewed possible side effects discussed importance of preventing N/V, staying hydrated, ER management for fever over 100.4, calling with any changes or concerns at home reviewed nutrition, self care at home, fatigue, contents of the binder was reviewed questions addressed TATE and consents reviewed and signed
[2023-03-24 09:42] VITALS: BP 131/85; PULSE 68; RESP 16; TEMP 36.6; O2SAT 95
[2023-03-24] MEDS: dexAMETHasone 10 MG in 0.9 % SODIUM CHLORIDE 100 ml 100 ML 404 MG IVPB (10:24)
[2023-03-24] MEDS: PALONOSETRON 0.25 MG/5 ML inj IV (10:25)
[2023-03-24] MEDS: MAGNESIUM SULFATE 2 GM, POTASSIUM CHLORIDE 10 MEQ in 0.9 % SODIUM CHLORIDE 1000 ml 1,00... IV (10:51)
[2023-03-24] MEDS: FOSAPREPITANT 150 MG inj 150 MG in 0.9 % SODIUM CHLORIDE 250 ml 250 ML 510 MG IVPB (11:56)
--- NOTE | 2023-03-25 10:50 | ONC.NURNOTE ---
Patient set up for [facility] audiology at 2pm on 04/01/2023 Message left on patient's voicemail regarding appointment/Referral faxed
--- NOTE | 2023-03-25 11:15 | PC.NURSE ---
Called pt today to check in after his first chemo treatment yesterday. Tad states that he is feeling great and has no aches or pains in his whole body. He understands that this could likely be a result of the steroids. RN encouraged pt to call later this week if any concerns arise. He agreed. Support offered.
[2023-03-30 08:50] LABS: Basophils Absolute Auto 0.01 K/uL (0.00-0.30); Basophils Percent Auto 0.1 % (0.0-3.0); Eosinophils Absolute Auto 0.06 K/uL (0.00-0.50); Eosinophils Percent Auto 0.9 % (0.0-7.0); Hematocrit 45.1 % (37.0-53.0); Hemoglobin* 14.9 gm/dL (13.5-17.5); Immature Granulocytes Abs Auto 0.02 K/uL (0.00-0.30); Immature Granulocytes Pct Auto 0.3 %; Lymphocytes Absolute Auto 1.68 K/uL (0.90-2.90); Lymphocytes Percent Auto 24.2 % (20-44); Mean Corpuscular HGB Conc 33 gm/dL (32-36); Mean Corpuscular Hemoglobin 31 pg (26-34); Mean Corpuscular Volume 93 fL (80-100); Neutrophils Absolute Auto 4.47 K/uL (1.7-7.0); Neutrophils Percent Auto 64.5 % (42.0-72.0); Platelet Count* 193 K/uL (140-440); RDW Coefficient of Variation % 12.4 % (11.5-15.5); Red Blood Count 4.87 m/uL (4.30-5.90); White Blood Count* 6.93 K/uL (4.50-11.00)
[2023-03-30 08:52] LABS: Slide Review Reflex No
[2023-03-30 09:02] LABS: Chloride* 103 mmol/L (96-114)
[2023-03-30 09:03] LABS: Albumin* 4.4 g/dL (3.3-5.0); Potassium* 4.7 mmol/L (3.6-5.1); Sodium* 138 mmol/L (135-149)
[2023-03-30 09:05] LABS: Anion Gap 6 mEq/L (7-15); Aspartate Amino Transferase* 23 U/L (12-35); Bilirubin Total* 0.4 mg/dL (0.1-1.5); Carbon Dioxide* 29 mmol/L (20-32); Creatinine* 1.2 mg/dL (0.5-1.5); Est. Creatinine Clearance* 56.61; Estimated Glomerular Filt Rate 67 ml/min; Total Protein* 7.7 g/dL (6.0-8.3)
[2023-03-30 09:06] LABS: Alanine Aminotransferase* 29 U/L (4-50); Alkaline Phosphatase* 63 U/L (40-150); Blood Urea Nitrogen* 21 mg/dL (7-30); Calcium* 9.5 mg/dL (8.4-10.6); Glucose* 108 mg/dL (60-115); Magnesium* 2.6 mg/dL (1.5-2.6)
[2023-03-31 09:07] VITALS: BP 120/80; PULSE 66; RESP 16; TEMP 36.4; O2SAT 93
--- NOTE | 2023-03-31 10:16 | PC.NURSE ---
Pt present at [facility] for cycle 2 of Cisplatin and fluids. Upon doing second vp hr assessment, pt shared that last week on Thursday03/25/2023 (day after 1st chemo), while walking the dog, Tad developed LEFT chest pain and RIGHT jaw pain. Tad stopped walking and sat until his completed the walk with the dog and the pains resolved. Tad also goes on to share that he notes chest pressure/fullness when he lays down. He props himself up on pillows and falls asleep without problems. RN discussed pt's symptoms with Gabriela Boyd APRN and it was advised that pt have cardiac and blood clot w/u with PCP. Called Dr. Yap at [facility] and full and unavailable to see pt today. They advised that pt go to ER for evaluation. Pt updated and agrees. PATRICE Ochoa spoke with Tad and he agreed to go to the ER for evaluation. Pt will be tentatively scheduled for chemo tomorrow and he will call to check in later today. PATRICE Ocoha gave report to ER and this residential mortgage underwriter gave report to [employer].
--- NOTE | 2023-03-31 13:40 | PC.NURSE ---
Pt called this afternoon to report that he has been discharged from the hospital and was cleared for chemo tomorrow. Pt is scheduled at 0900 and is aware. Support offered.
[2023-04-01 08:44] VITALS: BP 124/83; PULSE 77; RESP 16; TEMP 35.9; O2SAT 92
[2023-04-01] MEDS: MAGNESIUM SULFATE 2 GM, POTASSIUM CHLORIDE 10 MEQ in 0.9 % SODIUM CHLORIDE 1000 ml 1,00... IV (09:07)
[2023-04-01] MEDS: PALONOSETRON 0.25 MG/5 ML inj IV (10:10)
[2023-04-01] MEDS: dexAMETHasone 10 MG in 0.9 % SODIUM CHLORIDE 100 ml 100 ML 404 MG IVPB (10:10)
[2023-04-01] MEDS: 0.9 % SODIUM CHLORIDE 250 ml IV (10:11)
[2023-04-01] MEDS: FOSAPREPITANT 150 MG inj 150 MG in 0.9 % SODIUM CHLORIDE 250 ml 250 ML 510 MG IVPB (10:34)
[2023-04-06 10:21] LABS: Basophils Absolute Auto 0.01 K/uL (0.00-0.30); Basophils Percent Auto 0.2 % (0.0-3.0); Eosinophils Absolute Auto 0.08 K/uL (0.00-0.50); Eosinophils Percent Auto 1.3 % (0.0-7.0); Hematocrit 42.3 % (37.0-53.0); Hemoglobin* 13.9 gm/dL (13.5-17.5); Immature Granulocytes Abs Auto 0.01 K/uL (0.00-0.30); Immature Granulocytes Pct Auto 0.2 %; Lymphocytes Percent Auto 16.1 % (20-44); Mean Corpuscular HGB Conc 33 gm/dL (32-36); Mean Corpuscular Hemoglobin 31 pg (26-34); Mean Corpuscular Volume 94 fL (80-100); Monocytes Percent Auto 8.3 % (0.0-11.0); Neutrophils Percent Auto 73.9 % (42.0-72.0); Platelet Count* 133 K/uL (140-440); RDW Coefficient of Variation % 12.9 % (11.5-15.5); Red Blood Count 4.51 m/uL (4.30-5.90); White Blood Count* 6.15 K/uL (4.50-11.00)
[2023-04-06 10:27] LABS: Slide Review Reflex No
[2023-04-06 10:40] LABS: Albumin* 4.1 g/dL (3.3-5.0); Chloride* 105 mmol/L (96-114)
[2023-04-06 10:41] LABS: Potassium* 4.5 mmol/L (3.6-5.1); Sodium* 139 mmol/L (135-149)
[2023-04-06 10:43] LABS: Anion Gap 6 mEq/L (7-15); Aspartate Amino Transferase* 21 U/L (12-35); Bilirubin Total* 0.5 mg/dL (0.1-1.5); Carbon Dioxide* 28 mmol/L (20-32); Creatinine* 1.2 mg/dL (0.5-1.5); Est. Creatinine Clearance* 56.61; Estimated Glomerular Filt Rate 67 ml/min
[2023-04-06 10:44] LABS: Alanine Aminotransferase* 26 U/L (4-50); Alkaline Phosphatase* 50 U/L (40-150); Blood Urea Nitrogen* 23 mg/dL (7-30); Glucose* 131 mg/dL (60-115); Magnesium* 2.1 mg/dL (1.5-2.6)
[2023-04-07 09:35] VITALS: BP 120/77; PULSE 62; RESP 16; TEMP 36.8; O2SAT 95
[2023-04-07] MEDS: MAGNESIUM SULFATE 2 GM, POTASSIUM CHLORIDE 10 MEQ in 0.9 % SODIUM CHLORIDE 1000 ml 1,00... IV (10:02)
[2023-04-07] MEDS: dexAMETHasone 10 MG in 0.9 % SODIUM CHLORIDE 100 ml 100 ML 404 MG IVPB (11:18)
[2023-04-07] MEDS: PALONOSETRON 0.25 MG/5 ML inj IV (11:18)
[2023-04-07] MEDS: FOSAPREPITANT 150 MG inj 150 MG in 0.9 % SODIUM CHLORIDE 250 ml 250 ML 510 MG IVPB (11:41)
[2023-04-13 08:10] LABS: Basophils Percent Auto 0.2 % (0.0-3.0); Hematocrit 41.3 % (37.0-53.0); Hemoglobin* 13.8 gm/dL (13.5-17.5); Mean Corpuscular HGB Conc 33 gm/dL (32-36); Mean Corpuscular Hemoglobin 31 pg (26-34); Mean Corpuscular Volume 93 fL (80-100); Monocytes Percent Auto 10.2 % (0.0-11.0); Neutrophils Percent Auto 72.6 % (42.0-72.0); Platelet Count* 120 K/uL (140-440); RDW Coefficient of Variation % 13.1 % (11.5-15.5); Red Blood Count 4.46 m/uL (4.30-5.90); White Blood Count* 4.01 K/uL (4.50-11.00)
[2023-04-13 08:22] LABS: Slide Review Reflex No
[2023-04-13 08:29] LABS: Albumin* 4.4 g/dL (3.3-5.0); Chloride* 102 mmol/L (96-114); Potassium* 3.9 mmol/L (3.6-5.1); Sodium* 135 mmol/L (135-149)
[2023-04-13 08:31] LABS: Creatinine* 1.2 mg/dL (0.5-1.5); Est. Creatinine Clearance* 56.61; Estimated Glomerular Filt Rate 67 ml/min
[2023-04-13 08:32] LABS: Alanine Aminotransferase* 34 U/L (4-50); Alkaline Phosphatase* 66 U/L (40-150); Anion Gap 8 mEq/L (7-15); Aspartate Amino Transferase* 26 U/L (12-35); Bilirubin Total* 0.6 mg/dL (0.1-1.5); Blood Urea Nitrogen* 18 mg/dL (7-30); Calcium* 9.1 mg/dL (8.4-10.6); Carbon Dioxide* 25 mmol/L (20-32); Glucose* 133 mg/dL (60-115); Magnesium* 2.2 mg/dL (1.5-2.6); Total Protein* 7.4 g/dL (6.0-8.3)
[2023-04-14 09:11] VITALS: BP 118/75; PULSE 67; RESP 16; TEMP 36.6; O2SAT 94
[2023-04-14] MEDS: SODIUM CHLORIDE 0.9 % (FLUSH) 10 ML SYRINGE IVF (09:43)
[2023-04-14] MEDS: MAGNESIUM SULFATE 2 GM, POTASSIUM CHLORIDE 10 MEQ in 0.9 % SODIUM CHLORIDE 1000 ml 1,00... IV (09:43)
[2023-04-14] MEDS: 0.9 % SODIUM CHLORIDE 250 ml IV (10:48)
[2023-04-14] MEDS: dexAMETHasone 10 MG in 0.9 % SODIUM CHLORIDE 100 ml 100 ML 420 MG IVPB (10:48)
[2023-04-14] MEDS: PALONOSETRON 0.25 MG/5 ML inj IV (10:49)
[2023-04-14] MEDS: FOSAPREPITANT 150 MG inj 150 MG in 0.9 % SODIUM CHLORIDE 250 ml 250 ML 510 MG IVPB (11:07)
[2023-04-21 08:43] LABS: Eosinophils Percent Auto 1.1 % (0.0-7.0); Hematocrit 37.4 % (37.0-53.0); Lymphocytes Percent Auto 19.6 % (20-44); Mean Corpuscular HGB Conc 35 gm/dL (32-36); Mean Corpuscular Hemoglobin 32 pg (26-34); Mean Corpuscular Volume 92 fL (80-100); Monocytes Percent Auto 13.3 % (0.0-11.0); Platelet Count* 90 K/uL (140-440); RDW Coefficient of Variation % 13.5 % (11.5-15.5); Red Blood Count 4.06 m/uL (4.30-5.90)
[2023-04-21 08:52] LABS: Slide Review Reflex No
[2023-04-21 08:57] LABS: Albumin* 4.3 g/dL (3.3-5.0)
[2023-04-21 08:58] LABS: Chloride* 102 mmol/L (96-114); Potassium* 3.9 mmol/L (3.6-5.1); Sodium* 134 mmol/L (135-149)
[2023-04-21 09:00] LABS: Anion Gap 10 mEq/L (7-15); Aspartate Amino Transferase* 25 U/L (12-35); Bilirubin Total* 0.7 mg/dL (0.1-1.5); Carbon Dioxide* 22 mmol/L (20-32); Creatinine* 1.1 mg/dL (0.5-1.5); Est. Creatinine Clearance* 61.76; Estimated Glomerular Filt Rate 74 ml/min
[2023-04-21 09:01] LABS: Alanine Aminotransferase* 48 U/L (4-50); Alkaline Phosphatase* 67 U/L (40-150); Blood Urea Nitrogen* 18 mg/dL (7-30); Calcium* 8.9 mg/dL (8.4-10.6); Glucose* 121 mg/dL (60-115); Total Protein* 7.2 g/dL (6.0-8.3)
[2023-04-21 09:36] VITALS: BP 114/72; PULSE 60; RESP 16; TEMP 35.9; O2SAT 96
[2023-04-21] MEDS: MAGNESIUM SULFATE 2 GM, POTASSIUM CHLORIDE 10 MEQ in 0.9 % SODIUM CHLORIDE 1000 ml 1,00... IV (10:37)
[2023-04-21] MEDS: dexAMETHasone 10 MG in 0.9 % SODIUM CHLORIDE 100 ml 100 ML 404 MG IVPB (11:43)
[2023-04-21] MEDS: FOSAPREPITANT 150 MG inj 150 MG in 0.9 % SODIUM CHLORIDE 250 ml 250 ML 510 MG IVPB (12:14)
[2023-04-21] MEDS: PALONOSETRON 0.25 MG/5 ML inj IV (12:52)
[2023-04-24] MEDS: 0.9 % SODIUM CHLORIDE 1000 ml 1,000 ML IV (08:30)
[2023-04-24 08:32] VITALS: BP 112/73; PULSE 68; RESP 16; TEMP 35.9; O2SAT 94
[2023-04-24] MEDS: dexAMETHasone 4 MG/ML VIAL IVPB (09:32)
[2023-04-28 08:38] LABS: Basophils Percent Auto 0.4 % (0.0-3.0); Eosinophils Percent Auto 0.8 % (0.0-7.0); Hemoglobin* 12.8 gm/dL (13.5-17.5); Lymphocytes Percent Auto 14.3 % (20-44); Mean Corpuscular HGB Conc 34 gm/dL (32-36); Mean Corpuscular Hemoglobin 32 pg (26-34); Mean Corpuscular Volume 94 fL (80-100); Monocytes Percent Auto 14.3 % (0.0-11.0); Neutrophils Percent Auto 70.2 % (42.0-72.0); Platelet Count* 97 K/uL (140-440); RDW Coefficient of Variation % 14.3 % (11.5-15.5); Red Blood Count 4.04 m/uL (4.30-5.90); White Blood Count* 2.45 K/uL (4.50-11.00)
[2023-04-28 08:46] LABS: Slide Review Reflex No
[2023-04-28 08:51] LABS: Albumin* 4.3 g/dL (3.3-5.0)
[2023-04-28 08:52] LABS: Chloride* 101 mmol/L (96-114); Potassium* 4.8 mmol/L (3.6-5.1); Sodium* 137 mmol/L (135-149)
[2023-04-28 08:54] LABS: Alkaline Phosphatase* 65 U/L (40-150); Anion Gap 5 mEq/L (7-15); Aspartate Amino Transferase* 49 U/L (12-35); Bilirubin Total* 0.4 mg/dL (0.1-1.5); Carbon Dioxide* 31 mmol/L (20-32); Creatinine* 1.2 mg/dL (0.5-1.5); Est. Creatinine Clearance* 56.61; Estimated Glomerular Filt Rate 67 ml/min; Total Protein* 7.2 g/dL (6.0-8.3)
[2023-04-28 08:55] LABS: Alanine Aminotransferase* 159 U/L (4-50); Blood Urea Nitrogen* 14 mg/dL (7-30); Calcium* 9.5 mg/dL (8.4-10.6); Glucose* 127 mg/dL (60-115)
[2023-04-28] MEDS: 0.9 % SODIUM CHLORIDE 1000 ml 1,000 ML IV (10:53)
[2023-04-28] MEDS: SODIUM CHLORIDE 0.9 % (FLUSH) 10 ML SYRINGE IVF (11:19)
[2023-04-30] MEDS: 0.9 % SODIUM CHLORIDE 1000 ml 1,000 ML IV (08:51)
[2023-04-30] MEDS: SODIUM CHLORIDE 0.9 % (FLUSH) 10 ML SYRINGE IVF (10:12)
[2023-05-02 13:39] VITALS: BP 137/78; PULSE 69; RESP 16; O2SAT 95
[2023-05-02] MEDS: dexAMETHasone 4 MG/ML VIAL 8 MG IV (14:31)
[2023-05-03 13:00] VITALS: BP 127/79; PULSE 66; RESP 16; TEMP 36.7; O2SAT 94
[2023-05-03] MEDS: SODIUM CHLORIDE 0.9 % (FLUSH) 10 ML SYRINGE IVF (13:09)
[2023-05-03] MEDS: 0.9 % SODIUM CHLORIDE 1000 ml 1,000 ML IV ×2 (13:09→13:59)
[2023-05-03] MEDS: dexAMETHasone 4 MG/ML VIAL 8 MG IV (14:17)
--- NOTE | 2023-05-03 14:43 | PC.NURSE ---
IVF infused, Dexamethasone given IVPB. Tad tolerated both well. VSS. Ambulated to door.
[2023-05-06 08:49] VITALS: BP 114/75; PULSE 74; RESP 16; TEMP 36.4; O2SAT 93
[2023-05-06 09:16] LABS: Hemoglobin* 12.2 gm/dL (13.5-17.5); Lymphocytes Percent Auto 10.2 % (20-44); Mean Corpuscular HGB Conc 34 gm/dL (32-36); Mean Corpuscular Hemoglobin 32 pg (26-34); Mean Corpuscular Volume 96 fL (80-100); Monocytes Percent Auto 15.3 % (0.0-11.0); Neutrophils Percent Auto 74.5 % (42.0-72.0); Platelet Count* 91 K/uL (140-440); Red Blood Count 3.76 m/uL (4.30-5.90); White Blood Count* 2.15 K/uL (4.50-11.00)
[2023-05-06 09:24] LABS: Albumin* 4.1 g/dL (3.3-5.0); Chloride* 105 mmol/L (96-114); Potassium* 4.2 mmol/L (3.6-5.1); Sodium* 136 mmol/L (135-149)
[2023-05-06 09:27] LABS: Alanine Aminotransferase* 281 U/L (4-50); Alkaline Phosphatase* 63 U/L (40-150); Anion Gap 7 mEq/L (7-15); Aspartate Amino Transferase* 77 U/L (12-35); Bilirubin Total* 0.7 mg/dL (0.1-1.5); Blood Urea Nitrogen* 20 mg/dL (7-30); Calcium* 9.1 mg/dL (8.4-10.6); Carbon Dioxide* 24 mmol/L (20-32); Creatinine* 0.9 mg/dL (0.5-1.5); Est. Creatinine Clearance* 67.94; Estimated Glomerular Filt Rate 94 ml/min; Glucose* 142 mg/dL (60-115); Magnesium* 2.1 mg/dL (1.5-2.6); Total Protein* 6.8 g/dL (6.0-8.3)
[2023-05-06 09:32] LABS: Slide Review Reflex Yes
[2023-05-06] MEDS: MAGNESIUM SULFATE 2 GM, POTASSIUM CHLORIDE 10 MEQ in 0.9 % SODIUM CHLORIDE 1000 ml 1,00... IV (09:42)
[2023-05-06 10:15] LABS: Slide Review Acceptable Review (Acceptable)
[2023-05-06] MEDS: PALONOSETRON 0.25 MG/5 ML inj IV (11:10)
[2023-05-06] MEDS: dexAMETHasone 10 MG in 0.9 % SODIUM CHLORIDE 100 ml 100 ML 404 MG IVPB (11:10)
[2023-05-06] MEDS: FOSAPREPITANT 150 MG inj 150 MG in 0.9 % SODIUM CHLORIDE 250 ml 250 ML 510 MG IVPB (11:33)
[2023-05-06 13:01] LABS: Hepatitis B Surface Antigen* Negative (Negative)
[2023-05-06 13:18] LABS: Hepatitis C Virus Antibody* Negative (Negative)
[2023-05-07 08:23] VITALS: BP 121/75; PULSE 81; RESP 16; TEMP 36.1; O2SAT 94
[2023-05-07] MEDS: 0.9 % SODIUM CHLORIDE 1000 ml 1,000 ML IV (08:44)
[2023-05-08 08:15] VITALS: BP 115/71; PULSE 52; RESP 16; TEMP 36.1; O2SAT 95
[2023-05-08] MEDS: 0.9 % SODIUM CHLORIDE 1000 ml 1,000 ML IV (08:31)
[2023-05-08] MEDS: SODIUM CHLORIDE 0.9 % (FLUSH) 10 ML SYRINGE IVF (13:32)
[2023-05-11 08:43] VITALS: BP 110/65; PULSE 66; RESP 16; TEMP 37.1; O2SAT 95
[2023-05-11] MEDS: 0.9 % SODIUM CHLORIDE 1000 ml 1,000 ML IV (09:00)
[2023-05-11] MEDS: SODIUM CHLORIDE 0.9 % (FLUSH) 10 ML SYRINGE IVF (09:01)
[2023-05-13 08:52] VITALS: BP 125/77; PULSE 70; RESP 16; TEMP 36.2; O2SAT 93
[2023-05-13 09:40] LABS: Albumin* 3.9 g/dL (3.3-5.0)
[2023-05-13 09:42] LABS: Bilirubin Direct* 0.1 mg/dL (0.0-0.5); Bilirubin Total* 0.4 mg/dL (0.1-1.5)
[2023-05-13 09:43] LABS: Alanine Aminotransferase* 195 U/L (4-50); Alkaline Phosphatase* 61 U/L (40-150); Aspartate Amino Transferase* 47 U/L (12-35); Total Protein* 6.6 g/dL (6.0-8.3)
[2023-05-13] MEDS: 0.9 % SODIUM CHLORIDE 1000 ml 1,000 ML IV (09:50)
[2023-05-13] MEDS: SODIUM CHLORIDE 0.9 % (FLUSH) 10 ML SYRINGE IVF (10:54)
[2023-05-15 08:50] VITALS: BP 107/70; PULSE 77; RESP 16; TEMP 36.2; O2SAT 95
[2023-05-15] MEDS: 0.9 % SODIUM CHLORIDE 1000 ml 1,000 ML IV (08:53)
[2023-05-15] MEDS: SODIUM CHLORIDE 0.9 % (FLUSH) 10 ML SYRINGE IVF (08:54)
[2023-05-18 08:55] VITALS: BP 117/74; PULSE 71; RESP 16; TEMP 36.2; O2SAT 94
[2023-05-18] MEDS: 0.9 % SODIUM CHLORIDE 1000 ml 1,000 ML IV (09:05)
[2023-05-18] MEDS: SODIUM CHLORIDE 0.9 % (FLUSH) 10 ML SYRINGE IVF (09:06)
[2023-05-20 08:52] VITALS: BP 124/72; PULSE 77; RESP 18; TEMP 36.2; O2SAT 94
[2023-05-20] MEDS: 0.9 % SODIUM CHLORIDE 1000 ml 1,000 ML IV (09:09)
== END 2023-09-09 23:59 | disposition home or self-care (01) ==
LOC: CCIC 09:00
PROVIDERS: Clinical Nurse Specialist; Physician Assistant; PCP Family Medicine; Referring Provider Family Medicine; Visit Provider Internal Medicine Hematology & Oncology
DX: C76.0 Malignant neoplasm of head, face and neck (principal)
CPT/HCPCS: 36415; 36592; 80048; 80053; 80076; 82565; 83735; 84100; 85025; 86803; 87340; 96360; 96361; 96365; 96366; 96374; 96376; 96411; 96413; 99202; 99205; 99211; 99212; 99215; G0463; J1100; J1453; J2469; J3475; J3480; J7030; J7050; J7120; J9060

== ENCOUNTER 2023-07-09 08:01 | Outpatient (CLI) | payer MEDICARE, OTHER, SELFPAY ==
--- NOTE | 2023-07-09 09:17 | W.ANESCHARGE ---
Anesthesia Charges Start Date/Time Anesthesia Start Date: 07/09/23 Anesthesia Start Time: 08:56 Stop Date/Time Anesthesia Stop Date: 07/09/23 Anesthesia Stop Time: 09:48
--- NOTE | 2023-07-09 09:50 | W.ANESCHARGE ---
Anesthesia Charges Start Date/Time Anesthesia Start Date: 07/09/23 Anesthesia Start Time: 08:56 Stop Date/Time Anesthesia Stop Date: 07/09/23 Anesthesia Stop Time: 09:48
== END 2023-07-09 08:02 | disposition home or self-care (01) ==
LOC: OP CLINIC 08:02
PROVIDERS: PCP Family Medicine; Visit Provider Surgery
DX: R93.3 Abnormal findings on diagnostic imaging of other parts of digestive tract (principal); K63.5 Polyp of colon; K64.8 Other hemorrhoids; K57.30 Diverticulosis of large intestine without perforation or abscess without bleeding
CPT/HCPCS: 00811; 45380; 45385; 88305; J2405; J2704

== ENCOUNTER 2024-01-20 08:18 | Outpatient (CLI) | payer MEDICARE, OTHER, SELFPAY ==
--- OUTSIDE RECORDS SUMMARY | 2024-01-24 05:40 | XMS_ITS | Referral Summary ---
Author Organization [facility] Address [address] [place] [address] Care Team Providers Care Accounts Payable Manager Name Role Phone Unavailable Primary Care Provider Unavailabl e Source Comments Patient records contain information from all sites at [facility]. For routine questions regarding patient records, call [phone] during business hours, M-F 8:00 AM - 5:00 PM Central Time. Record requests for emergency care only can be directed to [phone] at any time.[facility] Encounters Date Type Department Care Team Description 11/24/2023 2:47 PM CDT - 11/24/2023 9:16 PM CDT Hospital Encounter Department of Radiation Oncology in [address] [phone] Lauren Hernandez M.D. Malignant Neoplasm Of Tonsil (HCC) (Primary Dx) from Last 3 Months Allergies No known active allergies Medications Medication Sig Dispensed Refills Start Date End Date Status rivaroxaban (XARELTO) 20 mg tablet rivaroxaban 20 mg oral tablet Start Date: 02/14/21 Status: Ordered 11/25/2016 Active levothyroxine (SYNTHROID, LEVOTHROID) 125 mcg tablet 02/25/2023 Active finasteride (PROSCAR) 5 mg tablet finasteride 5 mg oral tablet Start Date: 09/28/20 Status: Ordered 09/28/2020 Active azelaic acid (FINACEA) 15 % gel 09/20/2020 Active atorvastatin (LIPITOR) 10 mg tablet atorvastatin 10 mg oral tablet Start Date: 08/23/20 Status: Ordered 08/22/2020 Active fluoride, sodium, (PREVIDENT) 1.1 % gel dental gel Apply 1 Application to the mouth or throat daily. Floss, brush, baking soda rinse. Apply thin gel ribbon to trays wear 5 minutes. Remove trays expectorate excess gel. No eating drinking or rinsing for 30 min. 100 mL 12 03/10/2023 03/09/2024 Active doxycycline hyclate (DORYX) 100 mg EC tablet Take 100 mg by mouth 2 (two) times a day before breakfast and dinner. 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, cN1, cM0, p16+) - Unsigned Social History Tobacco Use Types Packs/Day Years Used Date Smoking Tobacco: Former Cigarettes 3 14 0 09/01/1996 - 09/01/2010 Smokeless Tobacco: Never Tobacco Cessation:Counseling Given: [...] Sex Assigned at Male 03/01/2023 1:25 PM SHOE LASTER Gender Identity Male 03/01/2023 1:25 PM SHOE LASTER Sexual Orientation Not on file Last Filed Vital Signs Vital Sign Reading Time Taken Comments Blood Pressure 113/69 11/24/2023 2:52 PM CDT Pulse 58 11/24/2023 2:52 PM CDT Temperature 36.8 ??C (98.2 ??F) 11/24/2023 2:52 PM CD T Respiratory Rate 18 05/05/2023 10:4 6 AM SHOE LASTER Oxygen Saturation 96% 05/05/2023 10: 46 AM SHOE LASTER Inhaled Oxygen Concentration - - Weight 96.5 kg (212 lb 11.9 oz) 11/24/2023 2:52 PM CDT Height 171.8 cm (5' 7.64) 08/20/2023 8:52 AM CD T Body Mass Index 32.69 08/20/2023 8:52 AM CDT Plan of Treatment Upcoming Encounters Date Type Department Care Team (Late st Contact Info) Description 02/09/2024 3:30 PM CDT Appointment Department of Radiation Oncology in [place], [place] [address] [place] [address] Lauren Hernandez M.D. [address] [place] [address] Procedures Procedure Name Priority Date/Time Associated Diagnosis Comments BASIC METABOLIC PANEL, S/P Routine 05/04/2023 9:38 AM SHOE LASTER Malignant Neoplasm Of Tonsil (HCC) Dietary Counseling And Surveillance For Enteral Nutrition from Last 3 Months or Most Recently Relevant to Health Maintenance Results * Basic Metabolic Panel (05/04/2023 9:38 AM SHOE LASTER) Potassium, S 4.8 3.6 - 5.2 mmol/L 05/04/2023 11:19 AM SHOE LASTER DTL Sodium, S 140 135 - 145 mmol/L 05/04/2023 11:19 AM SHOE LASTER DTL Chloride, S 102 98 - 107 mmol/L 05/04/2023 11:19 AM SHOE LASTER DTL Bicarbonate, S 26 22 - 29 mmol/L 05/04/2023 11:19 AM SHOE LASTER DTL Anion Gap 12 7 - 15 05/04/2023 11:19 AM SHOE LASTER DTL BUN (Blood Urea Nitrogen), S 21 8 - 24 mg/dL 05/04/2023 11:19 AM SHOE LASTER DTL Creatinine 1.26 0.74 - 1.35 mg/dL 05/04/2023 11:19 AM SHOE LASTER DTL Estimated GFR (eGFR) 63 >=60 mL/min/BSA 05/04/2023 11:19 AM SHOE LASTER DTL Comment: Estimated GFR calculated using the 2020 CKD_EPI creatinine equation. Calcium, Total, S 9.7 8.8 - 10.2 mg/dL 05/04/2023 11:19 AM SHOE LASTER DTL Glucose, S 94 70 - 140 mg/dL 05/04/2023 11:19 AM SHOE LASTER DTL Blood (Blood, Venous) 05/04/2023 9:38 AM SHOE LASTER 05/04/2023 10:04 AM SHOE LASTER Kendra Tinsley APRN CFcoNFcoP. LAB BLO OD ADD-ON [facility] [address] [place] [address], [facility] DTL [facility] [address] [place] [address] from Last 3 Months or Most Recently Relevant to Health Maintenance
--- OUTSIDE RECORDS SUMMARY | 2024-01-24 05:40 | XMS_ITS ---
Author Organization [facility] Address [address] [place] [address] Care Team Providers Care Fire Fighter [employer] Name Role Phone Unavailable Unavailable Unavailable Surgery Details Not on file Complications Check Surgery Details section. Procedure Estimated Blood Loss Check Surgery Details section. Procedure Findings Check Surgery Details section. Procedure Specimens Taken Check Surgery Details section.
--- OUTSIDE RECORDS SUMMARY | 2024-01-24 05:40 | XMS_ITS | Clinical Summary ---
Author Organization [facility] Address [address] [place] [address] Care Team Providers Care Spanisher Name Role Phone Unavailable Primary Care Provider Unavailabl e Source Comments Patient records contain information from all sites at [facility]. For routine questions regarding patient records, call [phone] during business hours, M-F 8:00 AM - 5:00 PM Central Time. Record requests for emergency care only can be directed to [phone] at any time.[facility] Allergies No known active allergies Medications Medication [...] Hospital Encounter Department of Radiation Oncology in [place], [place] [address] [place] [address] Lauren Hernandez M.D. Malignant Neoplasm Of Tonsil (HCC) (Primary Dx) from Last 3 Months Family History Medical [...] Sex Assigned at Male 03/01/2023 1:25 PM BOWLING BALL GRADER AND MARKER Gender Identity Male 03/01/2023 1:25 PM BOWLING BALL GRADER AND MARKER Sexual Orientation Not on file Last Filed Vital Signs Vital Sign Reading Time Taken Comments Blood Pressure 113/69 11/24/2023 2:52 PM CDT Pulse 58 11/24/2023 2:52 PM CDT Temperature 36.8 ??C (98.2 ??F) 11/24/2023 2:52 PM CD T Respiratory Rate 18 05/05/2023 10:4 6 AM BOWLING BALL GRADER AND MARKER Oxygen Saturation 96% 05/05/2023 10: 46 AM BOWLING BALL GRADER AND MARKER Inhaled Oxygen Concentration - - Weight 96.5 kg (212 lb 11.9 oz) 11/24/2023 2:52 PM CDT Height 171.8 cm (5' 7.64) 08/20/2023 8:52 AM CD T Body Mass Index 32.69 08/20/2023 8:52 AM CDT Plan of Treatment Upcoming Encounters Date Type Department Care Team (Late st Contact Info) Description 02/09/2024 3:30 PM CDT Appointment Department of Radiation Oncology in [place], [place] [address] [place] [phone] Lauren Hernandez M.D. [address] [place] [address] Health Maintenance Due Date Last Done Comments Abdominal Aortic Aneurysm (AAA) Screen 1957 CT Colonography 1957 Cologuard 1957 Colonoscopy 1957 Colorectal Cancer Surveillance 1955 Hepatitis C Screening 1957 Lung Cancer Screening 1957 Thyroid Stimulating Hormone (TSH) test for thyroid function 1957 Depression Screening (Annual PHQ-2) 04/27/2023 Pneumococcal vaccine (65+ years) (4 of 4 - PPSV23 or PCV20) 09/13/2023 09/12/2022, 10/03/2013, 03/25/2010 COVID-19 Vaccine (4 - season) 2023 05/16/2021, 09/11/2020, 08/21/2020 Influenza Vaccine (#1) 2024 7, 01/26/2016, 02/12/2015, Additional history exists Fasting Glucose for Diabetes Screening 05/04/2026 05/04/2023, [...] METABOLIC PANEL, S/P Routine 05/04/2023 9:38 AM BOWLING BALL GRADER AND MARKER Malignant Neoplasm Of Tonsil (HCC) Dietary Counseling And Surveillance For Enteral Nutrition from Last 3 Months or Most Recently Relevant to Health Maintenance Results * Basic Metabolic Panel (05/04/2023 9:38 AM BOWLING BALL GRADER AND MARKER) Potassium, S 4.8 3.6 - 5.2 mmol/L 05/04/2023 11:19 AM BOWLING BALL GRADER AND MARKER DTL Sodium, S 140 135 - 145 mmol/L 05/04/2023 11:19 AM BOWLING BALL GRADER AND MARKER DTL Chloride, S 102 98 - 107 mmol/L 05/04/2023 11:19 AM BOWLING BALL GRADER AND MARKER DTL Bicarbonate, S 26 22 - 29 mmol/L 05/04/2023 11:19 AM BOWLING BALL GRADER AND MARKER DTL Anion Gap 12 7 - 15 05/04/2023 11:19 AM BOWLING BALL GRADER AND MARKER DTL BUN (Blood Urea Nitrogen), S 21 8 - 24 mg/dL 05/04/2023 11:19 AM BOWLING BALL GRADER AND MARKER DTL Creatinine 1.26 0.74 - 1.35 mg/dL 05/04/2023 11:19 AM BOWLING BALL GRADER AND MARKER DTL Estimated GFR (eGFR) 63 >=60 mL/min/BSA 05/04/2023 11:19 AM BOWLING BALL GRADER AND MARKER DTL Comment: Estimated GFR calculated using the 2020 CKD_EPI creatinine equation. Calcium, Total, S 9.7 8.8 - 10.2 mg/dL 05/04/2023 11:19 AM BOWLING BALL GRADER AND MARKER DTL Glucose, S 94 70 - 140 mg/dL 05/04/2023 11:19 AM BOWLING BALL GRADER AND MARKER DTL Blood (Blood, Venous) 05/04/2023 9:38 AM BOWLING BALL GRADER AND MARKER 05/04/2023 10:04 AM BOWLING BALL GRADER AND MARKER Kendra Tinsley APRN C.N.PFco LAB BLO OD ADD-ON [facility] [address] [place] [address], [place] DTL [facility] [address] [place] [address] from Last 3 Months or Most Recently Relevant to Health Maintenance
--- OUTSIDE RECORDS SUMMARY | 2024-01-24 05:41 | XMS_ITS | Encounter Summary ---
Author Organization [facility] Address [address] [place] [address] Care Team Providers Care Backrest Assembler Name Role Phone Unavailable Primary Care Provider Unavailabl e Reason for Referral * Outpatient (Routine) - Authorized Specialty Diagnoses / Procedures Referred By Contac t Referred To Contact Radiation Oncology Ashlee Go APRN C.N.PFco, D.N.PFco [address] [place] [phone] Lauren Hernandez M.D. [address] [place] [phone] Referral ID Status Reason Start Date Expiration Date V isits Requested Visits Authorized [id number] Authorized 11/24/2023 05/25/2025 1 1 * Outpatient (Routine) - Closed Specialty Diagnoses / Procedures Referred By Contac t Referred To Contact Radiation Oncology Terri Crowe P.A.-C., M.SFco [address] [place] [phone] Lauren Hernandez M.D. [address] [place] [phone] Referral ID Status Reason Start Date Expiration Date Visits Re quested Visits Authorized [id number] Closed 08/24/2023 02/22/2025 1 1 Scheduling Instructions Coordinate after appointment with Dr. Soto in ENT ([place]). Reason for Visit * Outpatient (Routine) - Closed Specialty Diagnoses / Procedures Referred By Conttin t Referred To Contact Radiation Oncology Terri Crowe P.A.-C., M.S. [address] [place] [phone] Lauren Hernandez M.D. [address] [place] [phone] Referral ID Status Reason Start Date Expiration Date Visits Re quested Visits Authorized [id number] Closed 08/24/2023 02/22/2025 1 1 Encounter Details Date Type Department Care Team (Latest Contact Info) Description 11/24/2023 2:47 PM CDT - 11/24/2023 9:16 PM CDT Hospital Encounter Department of Radiation Oncology in [place], [place] [address] [place] [phone] Lauren Hernandez M.D. 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 Sexual Orientation Not on file documented as of this encounter Last Filed Vital Signs Vital Sign Reading Time Taken Comments Blood Pressure 113/69 11/24/2023 2:52 PM CDT Pulse 58 11/24/2023 2:52 PM CDT Temperature 36.8 ??C (98.2 ??F) 11/24/2023 2:52 PM CD T Respiratory Rate - - Oxygen Saturation - - Inhaled Oxygen Concentration - - Weight 96.5 kg (212 lb 11.9 oz) 11/24/2023 2:52 PM CDT Height - - Body Mass Index 32.69 08/20/2023 8:52 AM CDT documented in this encounter Medications at Time of Discharge Medication Sig Dispensed Refills Start Date End Date atorvastatin (LIPITOR) 10 mg tablet atorvastatin 10 mg oral tablet Start Date: 08/23/20 Status: Ordered 08/22/2020 azelaic acid (FINACEA) 15 % gel 09/20/2020 doxycycline hyclate (DORYX) 100 mg EC tablet Take 100 mg by mouth 2 (two) times a day before breakfast and dinner. finasteride (PROSCAR) 5 mg tablet finasteride 5 mg oral tablet Start Date: 09/28/20 Status: Ordered 09/28/2020 fluoride, sodium, (PREVIDENT) 1.1 % gel dental gel Apply 1 Application to the mouth or throat daily. Floss, brush, baking soda rinse. Apply thin gel ribbon to trays wear 5 minutes. Remove trays expectorate excess gel. No eating drinking or rinsing for 30 min. 100 mL 12 03/10/2023 03/09/2024 levothyroxine (SYNTHROID, LEVOTHROID) 125 mcg tablet 02/25/2023 rivaroxaban (XARELTO) 20 mg tablet rivaroxaban 20 mg oral tablet Start Date: 02/14/21 Status: Ordered 11/25/2016 documented as of this encounter Progress Notes * Ashlee Go APRN, C.N.P., D.N.P. - 11/24/2023 3:00 PM CDT SUBJECTIVE DIAGNOSIS 1. Malignant Neoplasm Of Tonsil (HCC) SUPERVISED BY: Lauren Hernandez M.D. HISTORY OF PRESENT ILLNESS Mr. Tad Roland is a 68 y.o. 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 He completed concurrent chemoradiotherapy with weekly Cisplatin chemotherapy on May 11, 2023. He returns for follow up. His oncologic history is as follows: Oncology [...] however, he prefers to get treatment in [place]. Referral to colleagues in [place]. 03/10/2023 Other Dentistry appointment at [facility] where the patient's oral health was deemed adequate for chemoradiation. A dental lab order was initiated for [facility] in-house lab for fabrication of fluoride carriers. A folder was provided containing patient education materials and fluoride prescription. 03/23/2023 - 05/11/2023 Radiation Therapy 7000 cGy in 35 fractions Radiation Therapy Treatment Details (03/23/2023 - 05/11/2023) Site: Left Head and neck Technique: IMRT Goal: Curative Planned Treatment Start Date: 03/23/2023 08/13/2023 Critical Imaging PET-CT IMPRESSION: Complete interval response of the left tonsil squamous cell carcinoma and metastatic left cervical lymphadenopathy to interval chemoradiation therapy. 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 MRI would be helpful for further evaluation. 08/20/2023 Critical Imaging MRI Hip Right IMPRESSION: [id number] region of mildly T2 hyperintense signal and enhancement centered within the right hipjoint capsule corresponding to the area of FDG uptake on the prior PET/CT. Imaging findings are nonspecific but do not have the typical appearance for a tenosynovial giant cell tumor or other synovial process given its apparent extra-articular location, and are favored to represent a nonspecific inflammatory process. This area of signal abnormality could be amenable to ultrasound-guided biopsy ifclinically warranted. INTERVAL HISTORY The patient was seen and examined today with Dr. Hernandez. The patient reports doing well overall. He has been experiencing some moderate fatigue but has found tart zendejas juice very helpful with sleeping better at night. He denies any swallowing pain or difficulty. He reports his weight is stable overall. He continues experiencing taste changes but notices slow improvement in this overall. He reports dry mouth is present but not bothersome. He utilizes water to help alleviate that. He denies any dental concerns. He sees his dentist every 3 months and continues utilizing fluoride. He reports a ???sensation?? in his left neck that radiates up to his left cheek when he presses on his left neck. He denies any specific pain. He reports this started while he was on treatment and has been present since. He does not feel it is getting any worse, but does not note improvement either. He reports good range of motion in his neck and jaw but no significant limitations or concerns. His ECOG performance status is 0. REVIEW OF SYSTEMS Review of systems was negative except as documented above. OBJECTIVE BP 113/69 (BP Location: Right arm, Patient Position: Sitting, Cuff Size: Regular) Pulse (!) 58 Temp 36.8 ??C (Temporal) Wt 96.5 kg BMI 32.69 kg/m?? PHYSICAL EXAM General: Patient is alert and oriented in no apparent distress. ENT: Pupils equal, round, and reactive to light. Sclera anicteric. TMs visible and cone of light present bilaterally. Oral cavity inspection reveals moist mucous membranes and no visible lesions. Neck: Supple. Slight edema left central neck. Lymph: No palpable cervical, supraclavicular, infraclavicular, or axillary adenopathy. ASSESSMENT / PLAN #1 Stage I (cT2, cN1, cM0, p16+) squamous cell carcinoma of the left tonsil #2 Chemoradiotherapy initiated on March 23, 2023; completed on May 11, 2023 It was a pleasure to meet with Tad today. He is doing well overall now 6 months out from chemoradiation treatment. He continues experiencing taste changes and dry mouth following treatment but theseare improving. We encouraged him to continue seeing his dentist regularly, along with using his fluoride. Dr. Hernandez further evaluated the sensation he is experiencing. Please see her attestation forfurther information. He was supposed to have a follow up with ENT at this timeframe but was never contacted to set one up. We will ensure he gets back to Dr. Soto when he has his 1 year follow up imaging in April 2024. He is not following with Dr. Wu. His TSH is being monitored by his PCP who is managing his levothyroxine prescription. We will see Mr. Tad Roland in a follow-up visit in 3 months. Patient seen in collaboration with Dr. Hernandez, please review her attestation for additional information. The patient was asked to contact us with questions or concerns. He verbally expressed his understanding of the plan. EDUCATION Ready to learn, no apparent learning barriers were identified; learning preferences include listening. Explained diagnosis and treatment plan; patient expressed understanding of the content. I personally spent 25 minutes in care of the patient today. Time includes both non face to face andface to face patient care. Signed by: Ashlee Go APRN, C.N.P., D.N.P. 11/24/2023 2:57 PM CDT [facility] [address] [place] [address] Associated attestation - Lauren Hernandez M.D. - 11/24/2023 9:16 PM CDT I saw and evaluated the patient and participated in the zhang portions of the service as noted below.Ms. Ashlee Go APRN note for additional details. Lauren Hernandez M.D., 11/24/2023 documented in this encounter Plan of Treatment Upcoming Encounters Date Type Department Care Team (Late st Contact Info) Description 02/09/2024 3:30 PM CDT Appointment Department of Radiation Oncology in [place], [place] [address] [place] [address] Lauren Hernandez M.D. [address] [place] [phone] Scheduled Referrals Name Type Priority Associated Diagnoses Order Schedule Radiation Oncology office visit (clinic) Outpatient Referral Routine Once for 1 Occurrences starting 11/24/2023 until 11/24/2023 Radiation Oncology office visit (clinic) Outpatient Referral Routine Expected: 02/09/2024, Expires: 02/23/2025 documented as of this encounter Visit Diagnoses Diagnosis Malignant Neoplasm Of Tonsil (HCC)- Primary documented in this encounter
--- OUTSIDE RECORDS SUMMARY | 2024-01-24 05:41 | XMS_ITS | Encounter Summary ---
Author Organization [facility] Address [address] [place] [address] Care Team Providers Care Pbx Installer Name Role Phone Unavailable Primary Care Provider Unavailabl e Encounter Details Date Type Department Care Team (Late st Contact Info) Description 11/27/2014 Historical Ophthalmology [facility] Woodrow Epstein M.D. 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 [address] [place] [phone] documented as of this encounter Visit Diagnoses Not on filedocumented in this encounter
--- OUTSIDE RECORDS SUMMARY | 2024-01-24 05:41 | XMS_ITS ---
Author Organization [facility] Address [address] [place] [address] Care Team Providers Care Belt Changer Name Role Phone Unavailable Primary Care Provider [...] Prescribed Fraction Dose Prescribed Total Dose F1Opx 05/11/2023 49 35 of 35 200 cGy 7,000 cGy Reference Point Last Treated On Elapsed Days Session Dose Total Dose [id number] 05/11/2023 49 200 cGy 7,000 cGy Lifetime Dose Tracking * Chemical Lifetime Dose Automatic Entry Manual Entr y Radiation 449.57 mGy 449.57 mGy 0 mGy Fluoro Time 14.36 minutes 14.36 minutes 0 minutes DAP (uGy-m2) 9,126.18 uGy-m2 9,126.18 uGy-m2 0 uGy-m2
--- OUTSIDE RECORDS SUMMARY | 2024-01-24 05:41 | XMS_ITS | Continuity of Care Document ---
Author Name [facility] Organization [facility] Care Team Providers Care Life Insurance Sales Agent Name Role Phone [facility] Unavailable Unavailable Problems Combined list of problems [...] Readiness Group. No follow up scheduled with [facility] social media analyst at this time. This treatment plan communicated to [facility] caseworker intake. See Behavioral Health Intake. Patient demonstrated understanding by verbalizing the treatment plan. Vocational Rehab paperwork completed. [facility] Resource List and Family Letter provided. [facility] lower back pain Active Condition PCM follow up PPD, continued Coumadin therapy for therapeutic range, left shoulder back pain, wt loss, B/P, smoking cessation; yearly check up for vision, hearing, dental, DM, HIV, PSA (2006), EKG, colon (f/u Q 3yrs) if indicated.Arrange Orthopedic, PT, Neur., Coumadin clinic if indicated. [facility] shoulder strain left Active Condition Will continue w ith a canine service instructor trainer 4 x wk to strengthen left shoulder girdle. Report any detrimental s/s and report to CM and PCM regarding progress or digress. [facility] lumbago Active Condition six sigma black trainer is working with SM 4 x [...] INR as scheduled and follow up with Manga Artist on October 02. DoD visit for: screening [...] FDME SM completing annual flight physical See [facility] Medical Referral Source for details: - [id number] History - 2808 Exam and Test Results . DoD Preventive Medicine New Patient Evaluation Adult 40-64 Years Inactive Condition DoD assessment of patient condition work-related Inactive Condition Ultrasound, CT scan with contrast with blood work confirm cholecystitis. KATHERINE admitted , surgery done [id number], appendectomy also performed during operation. KATHERINE was released same day and had convalence leave until [id number]. Civilian PCM medically cleared KATHERINE [id number]. KATHERINE arrived at [id number], housing set up and intake done today with CM. [facility]U, PCM interviewed KATHERINE and plan is to RTD status so KATHERINE can rejoin his unit in [facility]. 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 Presently, KATHERINE states his pain is 0 and takes no analegic. Intake completed by CM. DoD visit for: postsurgical exam Inactive Condition DoD post cholecystectomy Active Condition Doing well a t this time. 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 Told to F/u with the physician in [facility]. DoD visit for: examination of subpopulation Inactive Condition DoD visit for: ears / hearing exam Active Condition DoD visit for: services physical Inactive Condition Pt mortgage loan counselor ed from [phone] [facility] Patient Counseling: Inactive Condition D oD Medications Combined list of outpatient medications from Department of Defense and Veterans Affairs facilities.Medications provided include 1) outpatient medications from the last 15 months, and 2) patient-reported medications. Medication Details Route Status Patient Instructions Prescription Expires Prescription Number Last Dispense Date Ordering Provider Order Date Order Qty Source ACYCLOVIR (ACYCLOVIR) , 400 MG, TABLET, ORAL, ZYDUS PHARMACEU, 100 ea. BOTTLE Active [id number] 4 2023 14 Pharmac y Data Transac tion Service Facilit y atorvastati n 10 mg oral tablet atorvast atin 10 mg oral tablet Start Date: 08/23/20 Status: Ordered Ordered No Facilit y Access ATORVASTATI N CALCIUM (atorvastat in calcium), 10 MG, TABLET, ORAL, JESSICA PHARMACEU, 1000 ea. BOTTLE Active [id number] 2023 90 Pharmac y Data Transac tion Service Facilit y ATORVASTATI N CALCIUM (atorvastat in calcium), 10 MG, TABLET, ORAL, JESSICA PHARMACEU, 1000 ea. BOTTLE Active [id number] 4 2023 90 Pharmac y Data Transac tion Service Facilit y DOXYCYCLINE HYCLATE (doxycyclin e hyclate), 100 MG, CAPSULE, ORAL, [employer], 500 ea. BOTTLE Active [id number] 2023 60 Pharmac y Data Transac tion Service Facilit y DOXYCYCLINE HYCLATE (doxycyclin e hyclate), 100 MG, CAPSULE, ORAL, [employer], 500 ea. BOTTLE Active [id number] 4 2023 60 Pharmac y Data Transac tion Service Facilit y FENTANYL (fentanyl), 12 MCG/HR, PATCH TD72, TRANSDERM, [employer], 5 ea. BOX Cancele d [id number] : 2023 0 Pharmac y Data Transac tion Service Facilit y FENTANYL (fentanyl), 12 MCG/HR, PATCH TD72, TRANSDERM, [employer], 5 ea. BOX Active [id number] 2023 10 Pharmac y Data Transac tion Service Facilit y FENTANYL (fentanyl), 12 MCG/HR, PATCH TD72, TRANSDERM, [employer], 5 ea. BOX Active [id number] 4 2023 3 Pharmac y Data Transac tion Service Facilit y finasteride 5 mg oral tablet finaster henry 5 mg oral tablet Start Date: 09/28/20 Status: Ordered Ordered No Facilit y Access GAVILYTE-G (PEG 3350/NA SULF,BICARB ,CL/KCL), 236-22.74G, SOLN RECON, ORAL, GAVIS PHARMACEU, 4000 ml BOTTLE Active [id number] 2023 4000 Pharmac y Data Transac tion Service Facilit y HYDROCODONE -ACETAMINOP HEN (hydrocodon e bitartrate/ acetaminoph en), 5 MG-300MG, TABLET, ORAL, MALLINCKROD T PH, 500 ea. BOTTLE Cancele d [id number] : 2022 0 Pharmac y Data Transac tion Service Facilit y HYDROCODONE -ACETAMINOP HEN (HYDROCODON E/ACETAMINO PHEN), 5MG-325MG, TABLET, ORAL, MALLINCKROD T PH, 500 ea. BOTTLE Active [id number] 2023 15 Pharmac y Data Transac tion Service Facilit y HYDROCODONE -ACETAMINOP HEN (HYDROCODON E/ACETAMINO PHEN), 5MG-325MG, TABLET, ORAL, MALLINCKROD T PH, 500 ea. BOTTLE Active [id number] 2023 30 Pharmac y Data Transac tion Service Facilit y HYDROCODONE -ACETAMINOP HEN (HYDROCODON E/ACETAMINO PHEN), 5MG-325MG, TABLET, ORAL, MALLINCKROD T PH, 500 ea. BOTTLE Active [id number] 2023 30 Pharmac y Data Transac tion Service Facilit y HYDROCODONE -ACETAMINOP HEN (HYDROCODON E/ACETAMINO PHEN), 5MG-325MG, TABLET, ORAL, MALLINCKROD T PH, 500 ea. BOTTLE Active [id number] 2022 30 Pharmac y Data Transac tion Service Facilit y HYDROCODONE -ACETAMINOP HEN (HYDROCODON E/ACETAMINO PHEN), 5MG-325MG, TABLET, ORAL, MALLINCKROD T PH, 500 ea. BOTTLE Active 3 2022 20 Pharmac y Data Transac tion Service Facilit y LEVOTHYROXI NE SODIUM (levothyrox ine sodium), 125 MCG, TABLET, ORAL, [employer], 1000 ea. BOTTLE Cancele d [id number] : 2023 0 Pharmac y Data Transac tion Service Facilit y LIDOCAINE HCL VISCOUS (LIDOCAINE HCL), 20MG/ML, SOLUTION, MUCOUS MEM, JOANNE [facility]S., 100 ml BOTTLE Cancele d [id number] : 2023 40 Pharmac y Data Transac tion Service Facilit y LIDOCAINE HCL VISCOUS (LIDOCAINE HCL), 20MG/ML, SOLUTION, MUCOUS MEM, [facility]NE [facility]S., 100 ml BOTTLE Active [id number] 2023 160 Pharmac y Data Transac tion Service Facilit y NALOXONE HCL (naloxone HCl), 4 MG, SPRAY, NASAL, [facility], 2 ea. BLIST PACK Active 4 2023 4 Pharmac y Data Transac tion Service Facilit y OXYCODONE HCL (OXYCODONE HCL), 5MG, TABLET, ORAL, MALLINKRT PHARM, 100 ea. BOTTLE Active [id number] 2023 7 Pharmac y Data Transac tion Service Facilit y OXYCODONE HCL (OXYCODONE HCL), 5MG, TABLET, ORAL, MALLINKRT PHARM, 100 ea. BOTTLE Cancele d [id number] : 2023 0 Pharmac y Data Transac tion Service Facilit y rivaroxaban 15 mg-20 mg oral kit rivaroxa ban 15 mg-20 mg oral kit Start Date: 07/21/20 Status: Ordered Ordered No Facilit y Access rivaroxaban 20 mg oral tablet rivaroxa ban 20 mg oral tablet Start Date: 02/14/21 Status: Ordered Ordered No Facilit y Access SYNTHROID (LEVOTHYROX INE SODIUM), 125MCG, TABLET, ORAL, [facility] 1000 ea. BOTTLE Active [id number] 2023 90 Pharmac y Data Transac tion Service Facilit y SYNTHROID (LEVOTHYROX INE SODIUM), 125MCG, TABLET, ORAL, [facility] 1000 ea. BOTTLE Active [id number] 2023 90 Pharmac y Data Transac tion Service Facilit y XARELTO (RIVAROXABA N), 20 MG, TABLET, ORAL, [employer]SHAT [facility]ARM., 90 ea. BOTTLE Active [id number] 4 2023 90 Pharmac y Data Transac tion Service Facilit y XARELTO (RIVAROXABA N), 20 MG, TABLET, ORAL, [facility]AT [facility]ARM., 90 ea. BOTTLE Cancele d [id number] : 2023 0 Pharmac y Data Transac tion Service Facilit y Allergies, Adverse Reactions, Alerts Combined list of allergies from Department of Defense and Veterans Affairs facilities. It does not include entries that were removed or entered in error. Substance Category Reaction Severity Reaction type Status Date Reported Comments Source No Known Allergies Drug allergy (disorder) active 01/07/2008 Edna SMITH Immunizations Combined list of available immunizations from the Department of Defense and Veterans Affairs facilities. Immunization Series Date Given Administered By Site Reaction Lot Number CVX Code Drug Manager [employer] Status Comments Source influenza, seasonal, injectable-pf [id number] [...] yomi free DoD influenza, seasonal, injectable-pf 2015 [id number] [employer] complet ed influenza , seasonal, injectabl e-pf 01/26/16 Given Ambulat ory Pharmac y influenza, seasonal, injectable-pf 2015 [id number] 140 [employer] complet ed influenza , seasonal, injectabl e-pf 01/26/16 Given Ambulat ory Pharmac y Influenza, seasonal, injectable, preservative free 1 2015 [id number] [employer] (SEQ) comple t ed Influenza [...] yomi free DoD varicella virus vaccine 2014 [id number] 21 Merck & Company Inc complet ed varicella virus vaccine 12/16/14 Given Ambulat ory Pharmac y varicella virus vaccine 2014 [id number] 21 Merck & Company Inc complet ed varicella virus vaccine 12/16/14 Given Ambulat ory Pharmac y varicella virus vaccine 1 2014 [id number] 21 Merck (MSD) complet ed varicella virus vaccine DoD anthrax vaccine 2014 [id number] 24 [employer] complet ed anthrax vaccine 06/04/14 Given Ambulat ory Pharmac y anthrax vaccine 2014 [id number] 24 [employer] complet ed anthrax vaccine 06/04/14 Given Ambulat ory Pharmac y anthrax vaccine 6 2014 [id number] 24 [employer] [place] ([facility]) complet ed anthrax vaccine DoD measles/mumps /rubella virus vaccine 2014 [id number] 03 Merck & Company Inc complet ed measles/m umps/rube lla virus vaccine 04/30/14 Given Ambulat ory Pharmac y measles/mumps /rubella virus vaccine 2014 [id number] 03 Merck & Company Inc complet ed measles/m umps/rube lla virus vaccine 04/30/14 Given Ambulat ory Pharmac y measles, mumps and rubella virus vaccine 2 2014 [id number] 03 Merck (MSD) complet ed measles, mumps [...] quadrivalent, preservative free 1 2013 [id number] 150 [facility] Influenza , injectabl e, quadrival ent, preservat yomi free DoD pneumococcal polysaccharid e, 23 valent 2013 [id number] 33 Merck & Company Inc complet ed pneumococ lyndsey polysacch aride, 23 valent 10/03/13 Given Ambulat ory Pharmac y typhoid Vi capsular polysaccharid e vac 2013 [id number] 101 [employer]. complet ed typhoid Vi capsular polysacch aride vac 10/03/13 Given Ambulat ory Pharmac y anthrax vaccine 2013 [id number] 24 [employer] complet ed anthrax vaccine 10/03/13 Given Ambulat ory Pharmac y pneumococcal polysaccharid e, 23 valent 2013 [id number] 33 Merck & Company Inc complet ed pneumococ lyndsey polysacch aride, 23 valent 10/03/13 Given Ambulat ory Pharmac y anthrax vaccine 2013 [id number] 24 [employer] complet ed anthrax vaccine 10/03/13 Given Ambulat ory Pharmac y typhoid Vi capsular polysaccharid e vac 2013 [id number] 101 [employer] complet ed typhoid Vi capsular polysacch aride vac 10/03/13 Given Ambulat ory Pharmac y anthrax vaccine 5 2013 [id number] 24 [employer] [place] ([facility]) complet ed anthrax vaccine DoD pneumococcal polysaccharid e vaccine, 23 valent 1 2013 [id number] 33 Merck (MSD) complet ed pneumococ lyndsey polysacch aride vaccine, 23 valent DoD typhoid Vi capsular polysaccharid e vaccine 1 2013 [id number] 101 [employer] (AD) complet ed typhoid Vi capsular polysacch aride vaccine DoD Influenza, injectable, MDCK-pf 2012 [id number] 153 [employer] complet ed Influenza , injectabl e, MDCK-pf 02/19/13 Given Ambulat ory Pharmac y Influenza, injectable, MDCK-pf 2012 [id number] 153 [employer] complet ed Influenza , injectabl e, MDCK-pf 02/19/13 Given Ambulat ory Pharmac y Influenza, injectable, Madin [place] Canine Kidney, preservative free 1 2012 [id number] 153 [employer] (CSL) complet ed Influenza , injectabl e, Madin Mary Canine Kidney, preservat yomi free DoD tetanus, diphtheria, acellular pertu is 2012 [id number] 33A 115 Unknown complet ed tetanus, diphtheri a, acellular pertussis 07/31/12 Given Ambulat ory Pharmac y tetanus, diphtheria, acellular pertu is 2012 [id number] 33A 115 Unknown complet ed tetanus, diphtheri a, acellular pertussis 07/31/12 Given Ambulat ory Pharmac y tetanus toxoid, reduced diphtheria toxoid, and acellular pertu is vaccine, adsorbed 1 2012 [id number] 33A 115 Unknown (UNK) complet ed tetanus toxoid, reduced diphtheri a toxoid, and acellular pertussis vaccine, adsorbed DoD influenza, seasonal, injectable 2011 [id number] 1A 141 [employer] complet ed influenza , seasonal, injectabl e 01/17/12 Given Ambulat ory Pharmac y influenza, seasonal, injectable 2011 [id number] 1A 141 [employer] complet ed influenza , seasonal, injectabl e 01/17/12 Given Ambulat ory Pharmac y Influenza, seasonal, injectable 1 2011 [id number] 1A 141 [facility] [employer] ([facility]) complet ed Influenza , seasonal, injectabl e DoD influenza, seasonal, injectable-pf 2010 [id number] 140 [employer] complet ed influenza , seasonal, injectabl e-pf 01/11/11 Given Ambulat ory Pharmac y influenza, seasonal, injectable-pf 2010 [id number] 140 [employer] complet ed influenza , seasonal, injectabl e-pf 01/11/11 Given Ambulat ory Pharmac y Influenza, seasonal, injectable, preservative free 1 2010 [id number] 140 [facility] [employer] ([facility]) complet ed Influenza , seasonal, injectabl e, preservat yomi free DoD influenza virus vaccine,split 2009 [id number] 15 Unknown complet ed influenza virus vaccine,s plit 03/09/10 Given Ambulat ory Pharmac y influenza virus vaccine,split 2009 [id number] 15 Unknown complet ed influenza virus vaccine,s plit 03/09/10 Given Ambulat ory Pharmac y influenza virus vaccine, split virus (incl. purified surface antigen)-reti red CODE 1 2009 [id number] 15 Unknown (UNK) comple t ed influenza virus vaccine, split virus (incl. purified surface antigen)- retired CODE DoD Novel influenza-H1N 1-09, all formul 2009 UNK 128 [employer] complet ed Novel influenza -V2F5-38, all formul 06/03/09 Given Ambulat ory Pharmac y Novel influenza-H1N 1-09, all formul 2009 UNK 128 [employer] complet ed Novel influenza -H7E8-31, all formul 06/03/09 Given Ambulat ory Pharmac y Novel influenza-H1N 1-09, all formulations 1 2009 UNK 128 [employer] (CSL) complet ed Novel influenza -G2F9-87, all formulati ons DoD influenza virus vaccine,split 2008 [id number] 1A 15 [employer] complet ed influenza virus vaccine,s plit 02/17/09 Given Ambulat ory Pharmac y influenza virus vaccine,split 2008 [id number] 1A 15 [employer] complet ed influenza virus vaccine,s plit 02/17/09 Given Ambulat ory Pharmac y influenza virus vaccine, split virus (incl. purified surface antigen)-reti red CODE 1 2008 [id number] 1A 15 [facility] [employer] (CS) complet ed influenza virus vaccine, split virus (incl. purified surface antigen)- retired CODE DoD influenza virus vaccine,split 2007 UNK 15 [employer] complet ed influenza virus vaccine,s plit 02/25/08 Given Ambulat ory Pharmac y influenza virus vaccine,split 2007 UNK 15 [employer] complet ed influenza virus vaccine,s plit 02/25/08 Given Ambulat ory Pharmac y influenza virus vaccine, split virus (incl. purified surface antigen)-reti red CODE 1 2007 UNK 15 [employer] (AB) complet ed influenza virus vaccine, split virus (incl. purified surface antigen)- retired CODE [facility] tuberculin purified protein derivative 2007 [id number] 96 [facility] complet ed tuberculi n purified protein derivativ e 07/20/07 Given Ambulat ory Pharmac y influenza virus vaccine, live 2007 [id number] 111 [employer] comple t ed influenza virus vaccine, live 04/27/07 Given Ambulat ory Pharmac y anthrax vaccine 2007 [id number] 24 [employer] complet ed anthrax vaccine 04/27/07 Given Ambulat ory Pharmac y influenza virus vaccine, live 2007 [id number] 111 [employer] comple t ed influenza virus vaccine, live 04/27/07 Given Ambulat ory Pharmac y anthrax vaccine 2007 [id number] 24 [employer] complet ed anthrax vaccine 04/27/07 Given Ambulat ory Pharmac y anthrax vaccine 4 2007 [id number] 24 [employer] [place] ([facility]) complet ed anthrax vaccine DoD influenza virus vaccine, live, attenuated, for intranasal use 1 2007 [id number] 111 [employer] (MED) complet ed influenza virus vaccine, live, attenuate d, for intranasa l use DoD vaccinia (smallpox) vaccine 2006 [id number] 75 [employer] complet ed vaccinia (smallpox ) vaccine 10/12/06 Given Ambulat ory Pharmac y vaccinia (smallpox) vaccine 2006 [id number] 75 [facility] complet ed vaccinia (smallpox ) vaccine 10/12/06 Given Ambulat ory Pharmac y vaccinia (smallpox) vaccine [id number] ed vaccinia (smallpox ) vaccine DoD anthrax vaccine 2006 [id number] 24 [employer] complet ed anthrax vaccine 08/31/06 Given Ambulat ory Pharmac y anthrax vaccine 2006 [id number] 24 [employer] complet ed anthrax vaccine 08/31/06 Given Ambulat ory Pharmac y anthrax vaccine 3 2006 [id number] 24 [employer] ([facility]) complet ed anthrax vaccine DoD anthrax vaccine 2006 [id number] 24 [employer] complet ed anthrax vaccine 08/04/06 Given Ambulat ory Pharmac y anthrax vaccine 2006 [id number] 24 [employer] complet ed anthrax vaccine 08/04/06 Given Ambulat ory Pharmac y anthrax vaccine 2 2006 [id number] 24 [employer] [place] ([facility]) complet ed anthrax vaccine DoD typhoid Vi capsular polysaccharid e vac 2006 [id number] 101 [employer] complet ed typhoid Vi capsular polysacch aride vac 07/17/06 Given Ambulat ory Pharmac y influenza virus vaccine, unspecified 2006 [id number] 88 Unknown complet ed influenza virus vaccine, unspecifi ed 07/17/06 Given Ambulat ory Pharmac y anthrax vaccine 2006 [id number] 24 [employer] complet ed anthrax vaccine 07/17/06 Given Ambulat ory Pharmac y typhoid Vi capsular polysaccharid e vac 2006 [id number] 101 [employer] complet ed typhoid Vi capsular polysacch aride vac 07/17/06 Given Ambulat ory Pharmac y influenza virus vaccine, unspecified 2006 [id number] 3BA 88 Unknown complet ed influenza virus vaccine, unspecifi ed 07/17/06 Given Ambulat ory Pharmac y anthrax vaccine 2006 [id number] 24 [employer] complet ed anthrax vaccine 07/17/06 Given Ambulat ory Pharmac y anthrax vaccine 1 2006 [id number] 24 [employer] [place] ([facility]) complet ed anthrax vaccine DoD influenza virus vaccine, unspecified formulation 1 2006 [id number] 3BA 88 Unknown (UNK) complet ed influenza virus vaccine, unspecifi ed formulati on DoD typhoid Vi capsular polysaccharid e vaccine 1 2006 [id number] 101 [employer] (AVB) complet ed typhoid Vi capsular polysacch aride vaccine DoD tuberculin purified protein derivative 2006 [id number] 96 [facility] complet ed tuberculi n purified protein derivativ e 07/15/06 Given Ambulat ory Pharmac y hepatitis A-hepatitis B vaccine 2005 [id number] 104 GlaxoSmithKli ne complet ed hepatitis A-hepatit is B vaccine 09/12/05 Given Ambulat ory Pharmac y tetanus-dipht h toxoids (Td) adult/adol 2005 [id number] 09 sanofi pasteur complet ed tetanus-d iphth toxoids (Td) adult/ado l 09/12/05 Given Ambulat ory Pharmac y hepatitis A-hepatitis B vaccine 2005 [id number] 5AA 104 GlaxoSmithKli ne complet ed hepatitis A-hepatit is B vaccine 09/12/05 Given Ambulat ory Pharmac y tetanus-dipht h toxoids (Td) adult/adol 2005 [id number] 09 sanofi pasteur complet ed tetanus-d iphth toxoids (Td) adult/ado l 09/12/05 Given Ambulat ory Pharmac y tetanus and diphtheria toxoids, adsorbed, preservative free, for adult use (2 Lf of tetanus toxoid and 2 Lf of diphtheria toxoid) 1 2005 [id number] 09 Sanofi Pasteur ([facility]) complet ed tetanus and diphtheri a toxoids, adsorbed, preservat yomi free, for adult use (2 Lf of tetanus toxoid and 2 Lf of diphtheri a toxoid) DoD hepatitis A and hepatitis B vaccine 3 2005 [id number] 5AA 104 [facility] (SKB) complet ed hepatitis A and hepatitis B vaccine DoD influenza virus vaccine,split 2005 [id number] 15 sanofi pasteur complet ed influenza virus vaccine,s plit 05/03/05 Given Ambulat ory Pharmac y influenza virus vaccine,split 2005 [id number] 15 sanofi pasteur complet ed influenza virus vaccine,s plit 05/03/05 Given Ambulat ory Pharmac y influenza virus vaccine, split virus (incl. purified surface antigen)-reti red CODE 1 2005 [id number] 15 Sanofi Pasteur ([facility]) complet ed influenza virus vaccine, split virus [...] and 2 Lf of diphtheri a toxoid) [facility] typhoid Vi capsular polysaccharid e vaccine 1 [...] DC Date Status Disposition Source [place]ear[place]) OUTPATIENT [id number] KARSTEN CAST 08/19 Released w/o Limitations [facility]ELON[facility]) [facility]([facility]) OUTPATIENT [id number] follow up on gallbla esthela surgery DEV SILVA 12/07 Released w/o Limitations [facility] MELONY [facility]) [place] [facility]Case Manag[place] OUTPATIENT [id number] Case Managem ent KAYLEEN ESPINO 12/07 Released w/o Limitations [facility] [place] Man[place] [facility] OUTPATIENT [id number] 02/22 Released w/o Limitations Theater Facilit y [facility] OUTPATIENT [id number] 02/23 Released w/o Limitations Theater Facilit y Theater Facility OUTPATIENT [id number] 06/30 Admitted Theater Facilit y Susiejori [facility] OUTPATIENT [id number] OIF/OEF PINKY RENEE 07/01 Released w/o Limitations Adair hood [facility] Interna l Medicin e) [employer]uhl [facility]) OUTPATIENT [id number] TCC NASIOTIS, LUIS 07/01 Released with Work/Duty Limitations [employer]st[employer]l [facility]) [facility] [place]([facility] Case Managemen t) OUTPATIENT [id number] Case Managem ent PINMARIEL TAYLORT L 07/05 Released w/o Limitations [facility] [place] Case Managem ent) [facility] [place]([facility]) OUTPATIENT [id number] [employer]EVAC ISREAL PETERS Sandrine 07/05 Released with Work/Duty Limitations [facility] [place]) [facility] [place] OUTPATIENT [id number] lab work ISREAL PETERS Sandrine 07/06 Released with Work/Duty Limitations [facility] [place]) [facility] [place] TELE CONSULT [id number] LABS- PT/INR ISREAL PETERS 07/08 [facility] [place]) [facility] [place] Case Managemen t) OUTPATIENT [id number] Case Managem ent MARIEL JOHNT L 07/13 Released w/o Limitations [facility] [place] Case Managem ent) [facility] [place] OUTPATIENT [id number] ISREAL PETERS 07/13 Released with Work/Duty Limitations [facility] [place] [facility] [place] OUTPATIENT [id number] FOLLOW UP/BLOO D WORK LORRAINE ISREAL 07/18 Released with Work/Duty Limitations [facility] [place] [facility] [place] Case Managemen t) OUTPATIENT [id number] Case Managem ent MARIEL JOHNT L 07/20 Released w/o Limitations [facility] [place] Case Managem ent) [facility] [place] TELE CONSULT [id number] BLOOD WORK YULYTANK 07/22 [facility] [place]) [facility] [place] Medical [facility]) OUTPATIENT [id number] FOLLOW UP/LABS ISREAL PETERS 07/25 Released with Work/Duty Limitations [facility] [place] Medical [facility]) [facility] [place] [id number] NO TBI-TBI SCREENI NG/TEST ING PROCESS MANDI HAND 07/27 Released w/o Limitations [facility] [place]) [facility] [place] Case Managemen t) OUTPATIENT [id number] Case Managem ent PINNIX, ELIO L 08/04 Released w/o Limitations [facility] [place] Case Managem ent) [facility] [place] Medical [facility]) OUTPATIENT [id number] Labs ISREAL PETERS 08/12 Released with Work/Duty Limitations [facility] [place] Medical [facility]) [facility] [place] TELE CONSULT [id number] labwork orders JOSE RODRIGUEZ 08/15 [facility] [place] [facility] [place] Case Managemen t) OUTPATIENT [id number] Case Managem ent PINNIX, ELIO L 08/22 Released w/o Limitations [facility] [place] Case Managem ent) [facility] [place] Case Managemen t) OUTPATIENT [id number] Case Managem ent PINNIX, ELIO L 08/30 Released w/o Limitations [facility] [place] Case Managem ent) Nataliia Collins, [place]([facility]) OUTPATIENT [id number] MEDICAL INTAKE [facility] DICKINSON 09/13 Released with Work/Duty Limitations Nataliia Collins, TAYE([facility]) [place]([facility]) OUTPATIENT [id number] CM intake of [facility] YARELIS SYKES 09/13 Released with Work/Duty Limitations [facility] [place] [facility] [place] OUT[place] [id number] Telepho ne consult with PCM YARELIS SYKES 09/22 Released with Work/Duty Limitations [facility] [place] [facility] [facility] [place] [id number] Telepho ne confere nce YARELIS SYKES 10/03 Released with Work/Duty Limitations [facility] [place] [facility] [facility] [place] [facility] [id number] Weekly report YARELIS SYKES 10/07 Released with Work/Duty Limitations [facility] [place] [facility] [facility] [place] [facility] [id number] Phone confere nce with YARELIS SYKES 10/10 Released with Work/Duty Limitations [facility] [place] [facility] [facility] [place] [id number] S/P Hematol ogist appt YARELIS SYKES 10/11 Released with Work/Duty Limitations [facility] [place] [facility] [place] [id number] 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 SALOME WALTON 11/10 [facility] [place] [facility] [facility] [place] [facility] [id number] Weekly CM progres s note SALOME WALTON 11/10 Released w/o Limitations [facility] [place] [facility] [facility] [place] [id number] Weekly CM progres s note SALOME WALTON 11/28 Released w/o Limitations [facility] [place] [facility] [facility] [place] [facility] [id number] Weekly CM progres s note. SALOME WALTON 12/02 Released w/o Limitations [facility] [place] [facility] [facility] [place] [facility] [id number] Weekly CM progres s note SALOME WALTON 12/06 Released w/o Limitations [facility] [place] [facility] [facility] [place] [facility] [id number] Weekly cm progres s note SALOME WALTON 12/15 Released w/o Limitations [facility] [place] [facility] [facility] [place] [id number] Weekly CM progres s note. SALOME WALTON 12/23 Released w/o Limitations [facility] [place] [facility] [facility] [place] [facility] [id number] weekly CM progres s note. SALOME WALTON 01/06 Released w/o Limitations [facility] [place] [facility] [facility] [place] [facility] [id number] weekly cm progres s note SALOME WALTON 02/09 Released w/o Limitations [facility] [place] [facility] [facility] [place] [facility] [id number] Weekly CM progres s note SALOME WALTON 02/17 Released w/o Limitations [facility] [place], [place]([facility]) [facility] [place], [place]([facility]) OUTPATIENT [id number] case review for haley SALOME WALTON 02/23 Released w/o Limitations [facility] [place], [place]([facility]) [facility] [place], [place]([facility]) OUTPATIENT [id number] Weekly CM progres s note SALOME WALTON 03/22 Released w/o Limitations [facility] [place], [place]([facility]) [facility] [place], [place]([facility]) OUTPATIENT [id number] Weekly CM progres s noteSALOME RENO 04/05 Released w/o Limitations [facility] [place], [place]([facility]) [facility] [place], [place]([facility]) OUTPATIENT [id number] Weekly CM progres s note SALOME WALTON 04/19 Released w/o Limitations [facility], [place]([facility]) [place]) OUTPATIENT [id number] Notes Entered by: BRENNAN HENDRICKSON 03 Oct 2013 1108 ------- ------- ------- ------- -- BRENNAN Jimenez 10/03 Released w/o Limitations [place] [employer] [employer] [employer] OUTPATIENT [id number] Notes Entered by: Carmela CHAMPAGNE 03 Oct 2013 1156 ------- ------- ------- ------- -- GUI DUNHAM 10/03 Released w/o Limitations [place] [facility] [employer] OUTPATIENT [id number] Notes Entered by: CARISSA HA 03 Oct 2013 1350 ------- ------- ------- ------- -- ELLEN LOPEZ 10/03 Released w/o Limitations [place] Hearing Conservat ion) OUTPATIENT [id number] Notes Entered by: Jori CHONG 04 Oct 2013 0724 ------- ------- ------- ------- -- PRE SAMARA CHONG 10/04 Released w/o Limitations [place] Hearing Conserv ation) [facility] OUTPATIENT [id number] Theater Provider 01/07 Released w/o Limitations [facility] [place] Hearing Conservat ion) OUTPATIENT [id number] LUZ MARIA ALEMAN 08/21 Released w/o Limitations [place]) [place] [address]) OUTPATIENT [id number] Notes Entered by: MARIA A HENDRICKS 22 Aug 2014 1353 ------- ------- ------- ------- -- CHITO Zimmerman 08/22 Released w/o Limitations [place] [address]) [place] TELE CONSULT [id number] Notes Entered by: ANIL BURCH 30 Jan 2020 0821 ------- ------- ------- ------- -- BARBARA Marcelo 01/29 [place]) Procedures Combined list of: 1) Procedures from Department of Veterans Affairs facilities going back up to thelast 18 months, not all VA non-surgical procedures are included; 2) All procedures from the Department of Defense facilities. Procedure Procedure Type Code Date Perfomer Comments Sourelmer e No data available for this section Ambulato ry Pharmacy Audiometry Group Testing Audiometry Group Testing 72151 015 ESTHERSAMARA OLIVER [facility] Audiometry Group Testing Audiometry Group Testing 12085 014 ARTHUR WHITEHEAD [facility] Spectacles Services Fitting Bifocal Except For Aphakia Spectacles Services Fitting Bifocal Except For Aphakia 22561 014 ELLEN LAND THE PROCEDURES NEEDED TO ORDER GLASSES, TO INCLUDE ANATOMICAL MEASUREMENTS AND FRAME FITTING, WAS DONE ON THE DATE OF THE APPOINTMENT. DUE TO STAFFING ISSUES, THE ACTUAL GLASSES ORDER WAS SUBMITTED EITHER THE SAME DAY OR THE FOLLOWING WORK DAY. SEE SRTS FOR DETAILS. [facility] Screening Test Of Visual Acuity, Quantitative, Bilateral Screening Test Of Visual Acuity, Quantitative, Bilateral 74399 014 ELLEN LAND Anthrax Vaccine For Subcutaneous Or Intramuscular Use Anthrax Vaccine For Subcutaneous Or Intramuscular Use 80425 014 BRENNAN HENDRICKSON Pneumococcal Polysaccharide Vaccine 23 Valent Intramuscular Pneumococcal Polysaccharide Vaccine 23 Valent Intramuscular 19429 BRENNAN HENDRICKSON Immunization Administration By Injection, Each Additional Vaccine Immunization Administration By Injection, Each Additional Vaccine 15413 BRENNAN HENDRICKSON Typhoid Vaccine Vi Capsular Polysaccharide, For Intramus Use Typhoid Vaccine Vi Capsular Polysaccharide, For Intramus Use 54651 BRENNAN HENDRICKSON Immunization Administration By Injection, One Vaccine Immunization Administration By Injection, One Vaccine 56769 014 [facility] Venipuncture Venipuncture 74210 014 BRENNAN HENDRICKSON Case Management, each 15 minutes 008 ELIO JOHN Case Management, each 15 minutes 008 ELIO JOHN Case Management, each 15 minutes 008 ELIO JOHN Psychotherapy Individual Approximately 30 Minutes Psychotherapy Individual Approximately 30 Minutes 53829 008 MANDI HAND [facility] Case Management, each 15 minutes 008 ELIO JOHN [facility] Clinical Social Work Individual Outpatient Counseling 30 Minutes Clinical Social Work Individual Outpatient Counseling 30 Minutes [id number] 008 CLAY DELANEY [facility] [employer] Case Management, each 15 minutes 008 ELIO JOHN DoD Case Management, each 15 minutes 008 JAYLINXELIO DoD Case Management, each 15 minutes 007 KAYLEEN ESPINO [facility] Patient education, not otherwise cla ified, non-physician provider, group, per se ion 007 KARSTEN NAZARIO Ear Protector Attenuation Measurements Ear Protector Attenuation Measurements 41658 007 KARSTEN NAZARIO Audiometry Group Testing Audiometry Group Testing 35499 007 KARSTEN NAZARIO Social History Combined list of available smoking, [...] Plan No data available for this section 01/24/2024 Ambulatory Pharmacy Functional Status Combined list of recent functional and cognitive assessments recorded at [facility] of Defense and [facility] (VA).VA Functional [place] Measurement (FIM) Scale: 1 = Total Assistance (Subject = 0% +), 2 = Maximal Assistance (Subject = 25% +), 3 = Moderate Assistance (Subject = 50% +), 4 = Minimal Assistance (Subject = 75% +), 5 = Supervision, 6 = Modified [place] (Device), 7 = Complete [place] (Timely, Safely). Assessment Date/Time Source Assessment Type Assessment Skill Assessment Score Assessment Details No data available for this section
--- OUTSIDE RECORDS SUMMARY | 2024-01-24 05:41 | XMS_ITS | Clinical Summary ---
Author Organization [email or web address] Address [place], [place] [address] Care Team Providers Care Assistant Maintenance Manager Name Role Phone Dedra Brennan MD Primary Care Provider [phone] Allergies No known active allergies Medications No known medications Active Problems No known active problems Social History Tobacco Use Types Packs/Day Years Used Date Smoking Tobacco: Never Assessed Sex and Gender Information Value Date Recorded Sex Assigned at Not on file Gender Identity Not on file Sexual Orientation Not on file Obstetrics History Plan of Treatment Health Maintenance Due Date Last Done Comments Tdap 02/17/1968 Depression screening for age 12+ 1969 BMI (ht and wt on same day) for age 18+ 1975 Hepatitis C screening for age 18-79 1975 Tetanus booster 1977 Colonoscopy through age 75 2002 Lipids for age 45-75 2002 Zoster (shingles) series for age 50+ (1 of 2) 02/17/20 07 Pneumococcal series for age 65+ (1 of 1 - PCV) 022 COVID-19 vaccine series (2023- season) 4 Influenza for age 65+ 12/27/2023 Care Teams Assistant Maintenance Manager Relationship Specialty Start Date End Date Dedra Brennan MD PCP - General 10/26/07
== END 2024-01-20 08:19 | disposition home or self-care (01) ==
LOC: NFLDREF 01-24 05:38
PROVIDERS: PCP Family Medicine; Referring Provider Family Medicine; Visit Provider Family Medicine
DX: Z13.1 Encounter for screening for diabetes mellitus (principal); Z12.5 Encounter for screening for malignant neoplasm of prostate; Z13.6 Encounter for screening for cardiovascular disorders; E03.9 Hypothyroidism, unspecified
CPT/HCPCS: 80053; 80061; 84443; G0103

== ENCOUNTER 2024-02-17 10:30 | Outpatient (RCR) | payer MEDICARE, OTHER, SELFPAY | END 2024-02-17 11:06 | disposition home or self-care (01) | PROVIDERS: PCP Family Medicine; Visit Provider Family Medicine | DX: M25.511 Pain in right shoulder (principal); Z51.89 Encounter for other specified aftercare | CPT/HCPCS: 97110; 97161 ==

== ENCOUNTER 2024-04-18 09:00 | Outpatient (CLI) | payer MEDICARE, OTHER, SELFPAY | END 2024-04-18 09:01 | disposition home or self-care (01) | LOC: LKVREF 16:41 | PROVIDERS: PCP Family Medicine; Referring Provider Family Medicine; Visit Provider Family Medicine | DX: D69.6 Thrombocytopenia, unspecified (principal); E78.5 Hyperlipidemia, unspecified | CPT/HCPCS: 80061; 80076; 84439; 84443 ==

== ENCOUNTER 2024-08-16 12:36 | Outpatient (CLI) | payer MEDICARE, OTHER, SELFPAY | END 2024-08-16 12:37 | disposition home or self-care (01) | LOC: NFLDREF 08-18 22:02 | PROVIDERS: PCP Family Medicine; Referring Provider Family Medicine; Visit Provider Family Medicine | DX: E03.9 Hypothyroidism, unspecified (principal) | CPT/HCPCS: 84443 ==

== ENCOUNTER 2025-01-31 12:14 | Outpatient (CLI) | payer MEDICARE, OTHER, SELFPAY | END 2025-01-31 12:15 | disposition home or self-care (01) | LOC: LKVREF 12:16 | PROVIDERS: PCP Family Medicine; Visit Provider Family Medicine | DX: E03.9 Hypothyroidism, unspecified (principal); E78.5 Hyperlipidemia, unspecified; Z12.5 Encounter for screening for malignant neoplasm of prostate | CPT/HCPCS: 80061; 84443; G0103 ==